=== PATIENT | male | born 1950 | race Caucasian/White ===

== ENCOUNTER 2019-02-01 13:12 | Emergency (ER) | payer MEDICARE, OTHER ==
--- NOTE | 2019-02-01 13:40 | ER Document Report ---
ED Medical Screen (RME) - General Chief Complaint: Shortness Of Breath Stated Complaint: ABNORMAL LABS Time Seen by Provider: 02/01/19 13:31 Mode of Arrival: Ambulatory Information source: Patient Notes: 68-year-old male presented to ED for complaint of shortness of breath ankles and feet swelling. 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 He states he went to a local primary doctor and they told him to come straight to the emergency room. 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 He states he is a former smoker does not drink or do any drugs. I have greeted and performed a rapid initial assessment of this patient. A comprehensive ED assessment and evaluation of the patient, analysis of test results and completion of medical decision making process will be conducted by an additional ED providers. Dictation of this chart was performed using voice recognition software; therefore, there may be some unintended grammatical errors. - Related Data Allergies/Adverse Reactions: No Known Allergies Allergy (Unverified 02/01/19 13:14) Past Medical History - Social History Chew tobacco use (# tins/day): No Frequency of alcohol use: None - Past Medical History Cardiac Medical History: Reports: Hx Congestive Heart Failure Renal/ Medical History: Denies: Hx Peritoneal Dialysis Physical Exam - Vital signs Vitals: Temp Pulse Resp BP Pulse Ox 97.5 F 50 L 16 139/78 H 96 02/01/19 13:16 02/01/19 13:16 02/01/19 13:16 02/01/19 13:16 02/01/19 13:16 Course - Vital Signs Vital signs: Temp Pulse Resp BP Pulse Ox 97.5 F 50 L 16 139/78 H 96 02/01/19 13:16 02/01/19 13:16 02/01/19 13:16 02/01/19 13:16 02/01/19 13:16
[2019-02-01 14:36] LABS: ABSOLUTE EOSINOPHILS # (AUTO) 0.2 10^3/uL (0.0-0.6); ABSOLUTE LYMPHOCYTES (AUTO) 1.2 10^3/uL (0.5-4.7); ABSOLUTE MONOCYTES (AUTO) 0.5 10^3/uL (0.1-1.4); ABSOLUTE NEUT (AUTO) 5.4 10^3/uL (1.7-8.2); BASOPHILS % (AUTO) 0.3 % (0-2); EOSINOPHILS % (AUTO) 2.2 % (0-6); HEMATOCRIT 43.7 % (37.9-51.0); HEMOGLOBIN 14.9 g/dL (13.5-17.0); LYMPHOCYTES % (AUTO) 16.5 % (13-45); MEAN CORPUSCULAR HEMOGLOBIN 31.5 pg (27.0-33.4); MEAN CORPUSCULAR HGB CONC 34.1 g/dL (32.0-36.0); MEAN CORPUSCULAR VOLUME 92 fl (80-97); MONOCYTES % (AUTO) 7.5 % (3-13); PLATELET COUNT 241 10^3/uL (150-450); RED BLOOD COUNT 4.72 10^6/uL (4.35-5.55); RED CELL DISTRIBUTION WIDTH 13.8 % (11.5-14.0); SEGMENTED NEUTROPHILS % (AUTO) 73.5 % (42-78); TOTAL CELLS COUNTED % (AUTO) 100 %; WHITE BLOOD COUNT 7.3 10^3/uL (4.0-10.5)
[2019-02-01 14:42] LABS: INTERNATIONAL RATION (INR) 1.05; PROTHROMBIN TIME 13.8 SEC (11.4-15.4)
[2019-02-01 14:58] LABS: ALBUMIN 4.1 g/dL (3.5-5.0); ALKALINE PHOSPHATASE 81 U/L (38-126); ANION GAP 11 (5-19); ASPARTATE AMINO TRANSFERASE 29 U/L (17-59); BILIRUBIN,DIRECT 0.3 mg/dL (0.0-0.4); BILIRUBIN,TOTAL 0.7 mg/dL (0.2-1.3); BLOOD UREA NITROGEN 20 mg/dL (7-20); CALCIUM 9.3 mg/dL (8.4-10.2); CARBON DIOXIDE 24 mmol/L (22-30); CHLORIDE 104 mmol/L (98-107); GLUCOSE 148 mg/dL (75-110); POTASSIUM 4.5 mmol/L (3.6-5.0); TOTAL PROTEIN 7.4 g/dL (6.3-8.2)
[2019-02-01 15:18] LABS: TROPONIN I 0.058 ng/mL
--- NOTE | 2019-02-01 15:36 | RADIOLOGY REPORT (SQ) ---
EXAM DESCRIPTION: CHEST 2 VIEWS COMPLETED DATE/TIME: 02/01/2019 3:28 pm REASON FOR STUDY: Short of breath pedal edema history of CHF COMPARISON: None. EXAM PARAMETERS: NUMBER OF VIEWS: two views TECHNIQUE: Digital Frontal and Lateral radiographic views of the chest acquired. RADIATION DOSE: NA LIMITATIONS: none FINDINGS: LUNGS AND PLEURA: No opacities, masses or pneumothorax. No pleural effusion. MEDIASTINUM AND HILAR STRUCTURES: No masses or contour abnormalities. HEART AND VASCULAR STRUCTURES: Enlarged cardiac silhouette. . No evidence for failure. Aortic athe rosclerosis. BONES: No acute findings. HARDWARE: None in the chest. OTHER: No other significant finding. IMPRESSION: Enlarged cardiac silhouette without other evidence of acute cardiopulmonary process. TECHNICAL DOCUMENTATION: JOB ID: [id number] [employer]- All Rights Reserved Reading location - IP/workstation name: [email or web address]
[2019-02-01] MEDS ORDERED: FUROSEMIDE INJ/PF 40 MG/4 ML SDV IV ONE (15:58)
--- NOTE | 2019-02-01 16:01 | ER Document Report ---
ED General - General Chief Complaint: Shortness Of Breath Stated Complaint: ABNORMAL LABS Time Seen by Provider: 02/01/19 13:31 Primary Care Provider: JASON DIAZ MD [ACTIVE STAFF] - 02/04/19 Mode of Arrival: Ambulatory - [facility] Notes: Patient is a 68-year-old male that presents to the emergency department for chief complaint of shortness of breath. Patient reports history of congestive heart failure. He is on Lasix daily. He has been taking his medication as prescribed which is once in the morning. He reports good diuresis at home. Patient states over the last few weeks he has had increasing shortness of breath. He does report orthopnea and peripheral edema. He denies any associated fever, chills, cough or chest pain. Patient moved to [place] 1 month ago and has not established with primary care yet. He has an appointment with Dr. Diaz this coming Monday to establish care. Patient states he was seen at an urgent care facility earlier today and was referred to the emergency room for further work-up. He denies any home oxygen use. Past Medical History: Congestive heart failure, hyperlipidemia, hypertension, subclavian steal syndrome Past Surgical History: Reviewed in chart Social History: Former smoker. Denies alcohol or drug use Family History: Reviewed and noncontributory for presenting illness Allergies: Reviewed, see documented allergy list. REVIEW OF SYSTEMS: CONSTITUTIONAL : No fever No chills No diaphoresis No recent illness EENT: No vision changes No congestion No sore throat CARDIOVASCULAR: No chest pain No palpitations RESPIRATORY: shortness of breath No cough No difficulty breathing GASTROINTESTINAL: No abdominal pain No nausea No vomiting No diarrhea GENITOURINARY: No dysuria No hematuria No difficulty urinating MUSCULOSKELETAL: No back pain leg pain No arm pain SKIN: No rashes No lesions LYMPHATIC: No swollen, enlarged glands. NEUROLOGICAL: No lightheadedness No headache No weakness No paresthesias PSYCHIATRIC: No anxiety No depression PHYSICAL EXAMINATION: Vital signs reviewed, nursing noted reviewed. GENERAL: Well-appearing, well-nourished and in no acute distress. HEAD: Atraumatic, normocephalic. EYES: Eyes appear normal, extraocular movements intact, sclera anicteric, conjunctiva are normal. ENT: nares patent, oropharynx clear without exudates. Moist mucous membranes. NECK: Normal range of motion, supple without lymphadenopathy LUNGS: Breath sounds diminished to auscultation bilaterally and equal. No wheezes rales or rhonchi. No tachypnea or accessory muscle use HEART: Regular rate and rhythm without murmurs ABDOMEN: Soft, nontender, normoactive bowel sounds. No rebound, guarding, or rigidity. No masses appreciated. EXTREMITIES: Nontender, good range of motion, +2 pitting edema bilateral lower extremities, symmetric. NEUROLOGICAL: No focal neurological deficits. Moves all extremities spontaneously Motor and sensory grossly intact on exam. PSYCH: Normal mood, normal affect. SKIN: Warm, Dry, normal turgor, no rashes or lesions noted on exposed skin - Related Data Allergies/Adverse Reactions: No Known Allergies Allergy (Unverified 02/01/19 13:14) Past Medical History - General Information source: Patient - Social History Smoking Status: Former Smoker Chew tobacco use (# tins/day): No Frequency of alcohol use: None Family History: Reviewed & Not Pertinent Patient has suicidal ideation: No Patient has homicidal ideation: No - Past Medical History Cardiac Medical History: Reports: Hx Congestive Heart Failure Renal/ Medical History: Denies: Hx Peritoneal Dialysis Physical Exam - Vital signs Vitals: Temp Pulse Resp BP Pulse Ox 97.5 F 50 L 16 139/78 H 96 02/01/19 13:16 02/01/19 13:16 02/01/19 13:16 02/01/19 13:16 02/01/19 13:16 Course - Re-evaluation Re-evalutation: 02/01/19 16:23 Vitals reviewed. Nursing notes reviewed. Patient's lab work shows a mild elevation in his creatinine likely secondary to his chronic Lasix. Patient has an elevated BNP at 8000 however there is no comparison to establish patient's baseline. His chest x-ray shows cardiomegaly without pulmonary vascular ben estion. Patient is currently not tachypneic or in any kind of respiratory distress. He is oxygenating at 96% on room air and speaking in full sentences. The remainder of his work-up is unremarkable. His troponin is 0.058 and he has not had any chest pain to suggest acute ACS. I do feel patient's symptoms are related to congestive heart failure exacerbation. He was given a dose of Lasix IV in the emergency room for continued diuresis. He has not having any respiratory distress that would necessitate him being admitted to the admitted to the hospital. Patient advised to contact Dr. Diaz Monday morning for close outpatient follow-up. He was told to return for new or worsening symptoms. Patient was counseled on avoiding high sodium foods. He will continue taking his Lasix as directed. He will elevate his feet to help with his peripheral edema. He and his feel comfortable with him being discharged home and with return precautions. Patient is stable for discharge. Laboratory 02/01/19 02/01/19 02/01/19 14:15 14:15 14:15 WBC 7.3 RBC 4.72 Hgb 14.9 Hct 43.7 MCV 92 MCH 31.5 MCHC 34.1 RDW 13.8 Plt Count 241 Seg Neutrophils % 73.5 Lymphocytes % 16.5 Monocytes % 7.5 Eosinophils % 2.2 Basophils % 0.3 Absolute Neutrophils 5.4 Absolute Lymphocytes 1.2 Absolute Monocytes 0.5 Absolute Eosinophils 0.2 Absolute Basophils 0.0 PT 13.8 INR 1.05 APTT 31.0 Sodium 138.6 Potassium 4.5 Chloride 104 Carbon Dioxide 24 Anion Gap 11 BUN 20 Creatinine 1.38 H Est GFR ( Amer) > 60 Est GFR (Non-Af Amer) 51 L Glucose 148 H Calcium 9.3 Total Bilirubin 0.7 Direct Bilirubin 0.3 Neonat Total Bilirubin Not Reportable Neonat Direct Bilirubin Not Reportable Neonat Indirect Bili Not Reportable AST 29 ALT 23 Alkaline Phosphatase 81 Troponin I NT-Pro-B Natriuret Pep Total Protein 7.4 Albumin 4.1 Lipase 84.4 02/01/19 14:15 WBC RBC Hgb Hct MCV MCH MCHC RDW Plt Count Seg Neutrophils % Lymphocytes % Monocytes % Eosinophils % Basophils % Absolute Neutrophils Absolute Lymphocytes Absolute Monocytes Absolute Eosinophils Absolute Basophils PT INR APTT Sodium Potassium Chloride Carbon Dioxide Anion Gap BUN Creatinine Est GFR ( Amer) Est GFR (Non-Af Amer) Glucose Calcium Total Bilirubin Direct Bilirubin Neonat Total Bilirubin Neonat Direct Bilirubin Neonat Indirect Bili AST ALT Alkaline Phosphatase Troponin I 0.058 NT-Pro-B Natriuret Pep 8110 H Total Protein Albumin Lipase Laboratory 02/01/19 02/01/19 02/01/19 14:15 14:15 14:15 WBC 7.3 RBC 4.72 Hgb 14.9 Hct 43.7 MCV 92 MCH 31.5 MCHC 34.1 RDW 13.8 Plt Count 241 Seg Neutrophils % 73.5 Lymphocytes % 16.5 Monocytes % 7.5 Eosinophils % 2.2 Basophils % 0.3 Absolute Neutrophils 5.4 Absolute Lymphocytes 1.2 Absolute Monocytes 0.5 Absolute Eosinophils 0.2 Absolute Basophils 0.0 PT 13.8 INR 1.05 APTT 31.0 Sodium 138.6 Potassium 4.5 Chloride 104 Carbon Dioxide 24 Anion Gap 11 BUN 20 Creatinine 1.38 H Est GFR ( Amer) > 60 Est GFR (Non-Af Amer) 51 L Glucose 148 H Calcium 9.3 Total Bilirubin 0.7 Direct Bilirubin 0.3 Neonat Total Bilirubin Not Reportable Neonat Direct Bilirubin Not Reportable Neonat Indirect Bili Not Reportable AST 29 ALT 23 Alkaline Phosphatase 81 Troponin I NT-Pro-B Natriuret Pep Total Protein 7.4 Albumin 4.1 Lipase 84.4 02/01/19 14:15 WBC RBC Hgb Hct MCV MCH MCHC RDW Plt Count Seg Neutrophils % Lymphocytes % Monocytes % Eosinophils % Basophils % Absolute Neutrophils Absolute Lymphocytes Absolute Monocytes Absolute Eosinophils Absolute Basophils PT INR APTT Sodium Potassium Chloride Carbon Dioxide Anion Gap BUN Creatinine Est GFR ( Amer) Est GFR (Non-Af Amer) Glucose Calcium Total Bilirubin Direct Bilirubin Neonat Total Bilirubin Neonat Direct Bilirubin Neonat Indirect Bili AST ALT Alkaline Phosphatase Troponin I 0.058 NT-Pro-B Natriuret Pep 8110 H Total Protein Albumin Lipase Chest X-Ray 02/01/19 13:37 IMPRESSION: Enlarged cardiac silhouette without other evidence of acute cardiopulmonary process. - Vital Signs Vital signs: Temp Pulse Resp BP Pulse Ox 97.5 F 50 L 16 139/78 H 96 02/01/19 13:16 02/01/19 13:16 02/01/19 13:16 02/01/19 13:16 02/01/19 13:16 - Laboratory Result Diagrams: 02/01/19 14:15 02/01/19 14:15 Laboratory results interpreted by me: 02/01/19 02/01/19 02/01/19 14:15 14:15 16:11 Creatinine 1.38 H Est GFR (Non-Af Amer) 51 L Glucose 148 H NT-Pro-B Natriuret Pep 8110 H Urine Protein >=500 H - EKG Interpretation by Me Additional EKG results interpreted by me: 02/01/19 16:49 Interpreted by myself 1643: Normal sinus rhythm, rate 85, normal axis, multiple PVCs, no STEMI, QT prolonged with QTC 509 Discharge - Discharge Clinical Impression: CHF exacerbation Qualifiers: Heart failure type: unspecified Qualified Code(s): I50.9 - Heart failure, unspecified Condition: Stable Disposition: HOME, SELF-CARE Instructions: Congestive Heart Failure ([facility]), Lasix Additional Instructions: Please return to the emergency department if you have any worsening, or concern of your symptoms. Please return to the emergency department if you develop chest pain, difficulty breathing, severe abdominal pain, or ongoing vomiting. Please follow-up with your primary care physician in 2-3 days and any other recommended physicians. If prescribed, take all medications as directed. If you have any questions or concerns do not hesitate to return the emergency department for evaluation. Follow with Dr. Diaz on Monday morning, if you are unable to be seen by cardiology or are having worsening symptoms please return to the emergency room Referrals: JASON DIAZ MD [ACTIVE STAFF] - 02/04/19
[2019-02-01 16:24] LABS: APPEARANCE,URINE CLEAR; BILIRUBIN,URINE NEGATIVE (NEGATIVE); COLOR,URINE YELLOW; GLUCOSE, URINE NEGATIVE (NEGATIVE); KETONES,URINE NEGATIVE (NEGATIVE); LEUKOCYTE ESTERASE,URINE NEGATIVE (NEGATIVE); NITRITE,URINE NEGATIVE (NEGATIVE); PROTEIN,URINE >=500 mg/dL (NEGATIVE); URINE SPECIFIC GRAVITY 1.015; UROBILINOGEN,URINE NEGATIVE mg/dL (<2.0)
[2019-02-01 16:58] VITALS: BP 130/74
--- NOTE | 2019-02-01 19:00 | EKG REPORT ---
SEVERITY:- ABNORMAL ECG - SINUS RHYTHM MULTIPLE VENTRICULAR PREMATURE COMPLEXES PROBABLE LEFT ATRIAL ABNORMALITY NONSPECIFIC T ABNORMALITIES, LATERAL LEADS PROLONGED QT INTERVAL : Confirmed by: Grady Dejesus MD 01-Feb-2019 18:59:59
== END 2019-02-01 16:50 | disposition home or self-care (01) ==
LOC: ER 13:12
DX: I11.0 Hypertensive heart disease with heart failure (principal); I50.9 Heart failure, unspecified; Z79.899 Other long term (current) drug therapy; R06.02 Shortness of breath; M79.606 Pain in leg, unspecified; I49.3 Ventricular premature depolarization; Z87.891 Personal history of nicotine dependence
CPT/HCPCS: 93005; 36415; 83690; 85025; 85610; 85730; 80053; 81001; 84484; 83880; 71046; 93010; J1940; 96374; 99285

== ENCOUNTER 2019-02-10 03:00 | Inpatient (IN) | payer MEDICARE, OTHER ==
[2019-02-10 03:34] LABS: VENOUS BLOOD BASE EXCESS -3.8 mmol/L; VENOUS BLOOD HCO3 20.9 mmol/L (20-32); VENOUS BLOOD PH 7.37 (7.30-7.42)
--- NOTE | 2019-02-10 03:37 | ER Document Report ---
ED Respiratory Problem - General Chief Complaint: Shortness Of Breath Stated Complaint: SHORTNESS OF BREATH Time Seen by Provider: 02/10/19 03:22 Mode of Arrival: Medic Information source: Patient, Relative, Emergency Med Personnel, [facility] Records Notes: 68-year-old male patient reports onset about 1:15 AM this morning of severe shortness of breath developing while he was laying in bed. EMS was called and they found him to have a room air saturation 87%. He was placed on CPAP and nitroglycerin paste. At this time he is on BiPAP and he states the breathing is much improved. He was seen here on 02/01/2019 with similar symptoms but he reports that tonight was much worse than that visit. At that time he was diagnosed with congestive heart failure, received IV Lasix, and was told to follow-up with Dr. Stewart. He states he has an appointment with Dr. Stewart scheduled for 02/18/2019. He moved here just over a month ago from [facility]. He has a past medical history of CHF and hypertension. - Related Data Allergies/Adverse Reactions: No Known Allergies Allergy (Unverified 02/01/19 13:14) Past Medical History - General Information source: Patient, Relative, Emergency Med Personnel, [facility] Records - Social History Smoking Status: Former Smoker Cigarette use (# per day): No Chew tobacco use (# tins/day): No Smoking Education Provided: No Frequency of alcohol use: None Drug Abuse: None Occupation: Retired Lives with: Spouse/Significant other Family History: Reviewed & Not Pertinent - Past Medical History Cardiac Medical History: Reports: Hx Congestive Heart Failure, Hx Hypertension, Other - ,Subclavian steal syndrome on the right Denies: Hx Heart Attack Renal/ Medical History: Reports: Hx Benign Prostatic Hyperplasia Surgical Hx: Negative Review of Systems - Review of Systems Constitutional: No symptoms reported EENT: No symptoms reported Cardiovascular: No symptoms reported Respiratory: See HPI, Short of breath Gastrointestinal: No symptoms reported Genitourinary: No symptoms reported Musculoskeletal: No symptoms reported Skin: No symptoms reported Hematologic/Lymphatic: No symptoms reported Neurological/Psychological: No symptoms reported Physical Exam - Vital signs Vitals: Pulse Ox 96 02/10/19 03:04 - General General appearance: Appears well, Alert In distress: None - HEENT Head: Normocephalic, Atraumatic Eyes: Normal Pupils: PERRL Neck: Normal - Respiratory Respiratory status: Tachypnea Chest status: Nontender Breath sounds: Rales - Cardiovascular Rhythm: Regular Heart sounds: Normal auscultation Murmur: No - Abdominal Inspection: Morbidly Obese Bowel sounds: Normal Tenderness: Nontender - Back Back: Normal - Extremities General upper extremity: Normal inspection General lower extremity: Normal inspection. No: Edema - Neurological Neuro grossly intact: Yes - Psychological Associated symptoms: Normal affect, Normal mood - Skin Skin Temperature: Warm Skin Moisture: Dry Skin Color: Normal Course - Vital Signs Vital signs: Temp Pulse Resp BP Pulse Ox 99.1 F 13 103/57 L 95 02/10/19 03:38 02/10/19 04:51 02/10/19 04:51 02/10/19 04:51 - Laboratory Result Diagrams: 02/10/19 03:20 02/10/19 03:20 Laboratory results interpreted by me: 02/10/19 02/10/19 02/10/19 03:20 03:20 03:20 RDW 14.3 H Carbon Dioxide 21 L BUN 29 H Creatinine 1.31 H Est GFR (Non-Af Amer) 54 L Glucose 149 H Creatine Kinase 50 L NT-Pro-B Natriuret Pep 7780 H Urine Protein 02/10/19 04:15 RDW Carbon Dioxide BUN Creatinine Est GFR (Non-Af Amer) Glucose Creatine Kinase NT-Pro-B Natriuret Pep Urine Protein >=500 H - Diagnostic Test Radiology reviewed: Image reviewed, Reports reviewed - Chest x-ray shows increasing left basilar opacities, pneumonia versus atelectasis. - EKG Interpretation by Md EKG shows normal: Sinus rhythm, [place], Intervals, QRS Complexes. abnormal: ST-T Waves - Unspecific lateral T abnormalities Rate: Tachycardia - 106 Rhythm: PVC's - Occasional ventricular bigeminy P Waves: LAE When compared to previous EKG there are: No significant change - Consults Dr. Long Time consulted: 05:10 Consulted provider: will come to ER Discharge - Discharge Clinical Impression: Hypoxia, Elevated brain natriuretic peptide (BNP) level, Opacity of lung on imaging study Dyspnea Qualifiers: Dyspnea type: shortness of breath Qualified Code(s): R06.02 - Shortness of breath; R06.00 - Dyspnea, unspecified; R06.01 - Orthopnea Condition: Stable Disposition: ADMITTED INPATIENT Admitting Provider: Ethan (Hospitalist) Unit Admitted: Telemetry
[2019-02-10 03:52] LABS: ABSOLUTE EOSINOPHILS # (AUTO) 0.2 10^3/uL (0.0-0.6); ABSOLUTE LYMPHOCYTES (AUTO) 1.1 10^3/uL (0.5-4.7); ABSOLUTE MONOCYTES (AUTO) 0.5 10^3/uL (0.1-1.4); ABSOLUTE NEUT (AUTO) 5.2 10^3/uL (1.7-8.2); BASOPHILS % (AUTO) 0.6 % (0-2); EOSINOPHILS % (AUTO) 2.4 % (0-6); HEMATOCRIT 41.2 % (37.9-51.0); HEMOGLOBIN 13.8 g/dL (13.5-17.0); LYMPHOCYTES % (AUTO) 15.8 % (13-45); MEAN CORPUSCULAR HEMOGLOBIN 31.3 pg (27.0-33.4); MEAN CORPUSCULAR HGB CONC 33.4 g/dL (32.0-36.0); MEAN CORPUSCULAR VOLUME 94 fl (80-97); MONOCYTES % (AUTO) 7.1 % (3-13); PLATELET COUNT 206 10^3/uL (150-450); RED CELL DISTRIBUTION WIDTH 14.3 % (11.5-14.0); SEGMENTED NEUTROPHILS % (AUTO) 74.1 % (42-78); TOTAL CELLS COUNTED % (AUTO) 100 %
[2019-02-10 03:59] LABS: ALBUMIN 3.8 g/dL (3.5-5.0); ALKALINE PHOSPHATASE 84 U/L (38-126); ANION GAP 9 (5-19); ASPARTATE AMINO TRANSFERASE 24 U/L (17-59); BILIRUBIN,DIRECT 0.3 mg/dL (0.0-0.4); BILIRUBIN,TOTAL 0.6 mg/dL (0.2-1.3); BLOOD UREA NITROGEN 29 mg/dL (7-20); CALCIUM 8.8 mg/dL (8.4-10.2); CARBON DIOXIDE 21 mmol/L (22-30); CHLORIDE 107 mmol/L (98-107); CREATINE KINASE 50 U/L (55-170); GLUCOSE 149 mg/dL (75-110); POTASSIUM 4.3 mmol/L (3.6-5.0); TOTAL PROTEIN 6.7 g/dL (6.3-8.2)
--- NOTE | 2019-02-10 04:01 | RADIOLOGY REPORT (SQ) ---
EXAM DESCRIPTION: XR CHEST 1 VIEW COMPLETED DATE/TME: 02/10/2019 03:28 CLINICAL HISTORY: 68 years, Male, SOB COMPARISON: 02/01/2019 NUMBER OF VIEWS: One TECHNIQUE: AP view the chest LIMITATIONS: None. FINDINGS: There are increasing left basilar opacities. The heart is mildly enlarged. There is no pneumothorax or large pleural effusion. No acute fracture is identified. IMPRESSION: Increasing left basilar opacities, which may represent pneumonia or atelectasis. copyright 2010 [employer]- All Rights Reserved
[2019-02-10 04:08] LABS: CREATINE KINASE MB 1.23 ng/mL (<4.55)
[2019-02-10 04:10] LABS: TROPONIN I 0.064 ng/mL
[2019-02-10 04:36] LABS: APPEARANCE,URINE CLEAR; BILIRUBIN,URINE NEGATIVE (NEGATIVE); COLOR,URINE YELLOW; GLUCOSE, URINE NEGATIVE (NEGATIVE); KETONES,URINE NEGATIVE (NEGATIVE); LEUKOCYTE ESTERASE,URINE NEGATIVE (NEGATIVE); NITRITE,URINE NEGATIVE (NEGATIVE); PROTEIN,URINE >=500 mg/dL (NEGATIVE); URINE SPECIFIC GRAVITY 1.009; UROBILINOGEN,URINE NEGATIVE mg/dL (<2.0)
[2019-02-10] MEDS ORDERED: ACETAMINOPHEN 325 MG TABLET PO PRN (05:36)
[2019-02-10] MEDS ORDERED: PROMETHAZINE HCL INJ 25 MG/1 ML VIAL IV PRN (05:36)
[2019-02-10] MEDS ORDERED: MAG HYDROX/AL HYDROX/SIMETH SUSP 30 ML UDCUP PO PRN (05:36)
[2019-02-10] MEDS ORDERED: ONDANSETRON 4 MG TAB.RAPDIS PO PRN (05:36)
[2019-02-10] MEDS ORDERED: ONDANSETRON HCL INJ/PF 4 MG/2 ML SDV IV PRN (05:36)
[2019-02-10] MEDS ORDERED: PROMETHAZINE HCL 25 MG TABLET PO PRN (05:36)
--- NOTE | 2019-02-10 05:52 | PDOC H&P ---
History of Present Illness Admission Date/PCP: 02/10/19 05:29 Patient complains of: Shortness of breath History of Present Illness: INES TURNER JR is a 68 year old obese male with history of hypertension and CHF who presented to the emergency room with acute onset of worsening dyspnea with associated orthopnea paroxysmal nocturnal dyspnea with dry cough and wheezing that fear or chills over the last couple of days. Denies any chest pain or palpitations. Denies any nausea or vomiting or abdominal pain. No bleeding diathesis. No dysuria, oliguria or hematuria or flank pain. Upon presentation to the emergency room his EKG showed sinus tachycardia with a rate of 106 with PVCs. Will signs were remarkable for a temperature of 99.1 and pulse oximetry was 98% on 2 L O2 by nasal cannula. Labs are remarkable for negative initial set of cardiac enzymes, lactic acid 1.2 and proBNP of 7780. Urinalysis showed more than 500 protein 2 WBCs and 1 RBCs 3 hyaline casts. Portable chest x-ray showed slightly increased left basilar opacity, pneumonia versus atelectasis. The patient was order 40 mg of IV Lasix. He will be admitted to telemetry bed for further evaluation and management. Past Medical History Cardiac Medical History: Reports: Congestive Heart Failure, Hypertension, Other - ,Subclavian steal syndrome on the right Denies: Myocardial Infarction Past Surgical History Past Surgical History: Reports: None Social History Lives with: Spouse/Significant other Smoking Status: Former Smoker Hx Recreational Drug Use: Yes Hx Prescription Drug Abuse: Yes Family History Family History: DM, Hypertension Parental Family History Reviewed: Yes Children Family History Reviewed: Yes Sibling(s) Family History Reviewed.: Yes Medication/Allergy Allergies/Adverse Reactions: No Known Allergies Allergy (Unverified 02/01/19 13:14) Review of Systems Review of Systems: As per history of present illness. All pertinent systems were reviewed above. Constitutional, HEENT, cardiovascular, respiratory, GI, , musculoskeletal, neuro, psychiatric, endocrine, integumentary and hematologic systems were reviewed and are otherwise negative/unremarkable except for positive findings mentioned above in the HPI. Physical Exam Vital Signs: Temp Pulse Resp BP Pulse Ox 99.1 F 25 H 114/72 97 02/10/19 03:38 02/10/19 05:32 02/10/19 05:32 02/10/19 05:32 Intake & Output 02/08/19 02/09/19 02/10/19 06:59 06:59 06:59 Weight 107 kg Exam: Generally: Obese elderly male in mild to moderate respiratory distress with conversational dyspnea on BiPAP Vital signs-as listed Head - atraumatic, normocephalic. Pupils - equal, round and reactive to light and accommodation. Extraocular movements are intact. No scleral icterus. Oropharynx - moist mucous membranes and tongue. No pharyngeal erythema or exudate. Neck - supple. No JVD. Carotid pulses 2+ bilaterally. No carotid bruits. No palpable thyromegaly or lymphadenopathy. Cardiovascular - regular rate and rhythm. Normal S1 and S2. No murmurs, gallops or rubs. Lungs -diminished bibasilar breath sounds with bibasilar rales. Abdomen - soft and nontender. Positive bowel sounds. No palpable organomegaly or masses. Extremities -1+ bilateral extremity pitting edema, with no clubbing or cyanosis. Neuro - grossly non-focal. Skin - no rashes. and rectal exam - deferred. Results Laboratory Results: 02/10/19 03:20 02/10/19 03:20 02/10/19 02/10/19 02/10/19 03:20 03:20 03:20 WBC 7.0 RBC 4.40 Hgb 13.8 Hct 41.2 MCV 94 MCH 31.3 MCHC 33.4 RDW 14.3 H Plt Count 206 Seg Neutrophils % 74.1 Lymphocytes % 15.8 Monocytes % 7.1 Eosinophils % 2.4 Basophils % 0.6 Absolute Neutrophils 5.2 Absolute Lymphocytes 1.1 Absolute Monocytes 0.5 Absolute Eosinophils 0.2 Absolute Basophils 0.0 VBG pH VBG pCO2 VBG HCO3 VBG Base Excess Sodium 137.1 Potassium 4.3 Chloride 107 Carbon Dioxide 21 L Anion Gap 9 BUN 29 H Creatinine 1.31 H Est GFR ( Amer) > 60 Est GFR (Non-Af Amer) 54 L Glucose 149 H Lactic Acid 1.2 Calcium 8.8 Total Bilirubin 0.6 AST 24 Alkaline Phosphatase 84 Total Protein 6.7 Albumin 3.8 Urine Color Urine Appearance Urine pH Ur Specific [place] Urine Protein Urine Glucose (UA) Urine Ketones Urine Blood Urine Nitrite Ur Leukocyte Esterase Urine WBC (Auto) Urine RBC (Auto) 02/10/19 02/10/19 03:20 04:15 WBC RBC Hgb Hct MCV MCH MCHC RDW Plt Count Seg Neutrophils % Lymphocytes % Monocytes % Eosinophils % Basophils % Absolute Neutrophils Absolute Lymphocytes Absolute Monocytes Absolute Eosinophils Absolute Basophils VBG pH 7.37 VBG pCO2 37.0 VBG HCO3 20.9 VBG Base Excess -3.8 Sodium Potassium Chloride Carbon Dioxide Anion Gap BUN Creatinine Est GFR ( Amer) Est GFR (Non-Af Amer) Glucose Lactic Acid Calcium Total Bilirubin AST Alkaline Phosphatase Total Protein Albumin Urine Color YELLOW Urine Appearance CLEAR Urine pH 5.0 Ur Specific [place] 1.009 Urine Protein >=500 H Urine Glucose (UA) NEGATIVE Urine Ketones NEGATIVE Urine Blood NEGATIVE Urine Nitrite NEGATIVE Ur Leukocyte Esterase NEGATIVE Urine WBC (Auto) 2 Urine RBC (Auto) 1 02/10/19 02/10/19 02/10/19 03:20 03:20 03:20 Creatine Kinase 50 L CK-MB (CK-2) 1.23 Troponin I 0.064 NT-Pro-B Natriuret Pep 7780 H Impressions: Chest X-Ray 02/10/19 03:28 IMPRESSION: Increasing left basilar opacities, which may represent pneumonia or atelectasis. copyright 2011 [employer]- All Rights Reserved Assessment and Plan - Diagnosis (1) Acute on chronic diastolic CHF (congestive heart failure) Is this a current diagnosis for this admission?: Yes Plan: The patient will be admitted to a telemetry bed and will be diuresed with IV Lasix. Will follow serial cardiac enzymes. Will obtain a 2D echo(if not done last 6 months) and a cardiology consultation in a.m. (2) Acute respiratory failure Is this a current diagnosis for this admission?: Yes Plan: We will continue BiPAP and taper to nasal cannula as tolerated. (3) Acute kidney injury Is this a current diagnosis for this admission?: Yes Plan: This is likely prerenal secondary to acute CHF from renal hypoperfusion. Will diurese and follow BMP. Will hold off lisinopril (4) Hypertension Is this a current diagnosis for this admission?: Yes Plan: We will continue Toprol-XL as well as terazosin and hold off lisinopril given acute kidney injury. (5) DVT prophylaxis Is this a current diagnosis for this admission?: Yes Plan: Subcutaneous Lovenox - Time Time Spent with patient: 35 or more minutes Medications reviewed and adjusted accordingly: Yes Anticipated discharge: Home Within: within 72 hours Disposition: Telemetry bed - Inpatient Certification Based on my medical assessment, after consideration of the patient's comorbidities, presenting symptoms, or acuity I expect that the services needed warrant INPATIENT care.: Yes I certify that my determination is in accordance with my understanding of Medicare's requirements for reasonable and necessary INPATIENT services [42 CFR 412.3e].: Yes Medical Necessity: Need For Continuous Telemetry Monitoring, Need for IV Antibiotics Post Hospital Care: D/C or Transfer Summary - Plan Summary Plan Summary: The plan of care was discussed in details with the patient. I answered all que stions. The patient agreed to proceed with the above-mentioned plan. The patient is presumably full code. This note was created by [employer] dictating software and may contain typo errors that may have not been proofread.
[2019-02-10 06:38] LABS: CREATINE KINASE MB 1.08 ng/mL (<4.55); TROPONIN I 0.061 ng/mL
[2019-02-10] MEDS ORDERED: VANCOMYCIN HCL INJ 1000 MG VIAL IV ONE (06:42)
[2019-02-10] MEDS ORDERED: PHARMACY COMMUNICATION ORDER MC NR (06:45)
[2019-02-10] MEDS ORDERED: PIPERACILLIN/TAZOBACTAM 3.375 GM VIAL IV ONE (06:45)
[2019-02-10] MEDS ORDERED: VANCOMYCIN HCL INJ 1000 MG VIAL IV PRN (06:58)
[2019-02-10] MEDS ORDERED: VANCOMYCIN HCL 2,000 MG in DEXTROSE 5%-WATER 500 ML IV ONE (07:00)
[2019-02-10] MEDS: DOCUSATE SODIUM 100 MG CAPSULE PO SCH (09:50)
[2019-02-10] MEDS: ASPIRIN 325 MG TABLET, ENT COATED PO SCH (09:50)
[2019-02-10] MEDS: FUROSEMIDE INJ/PF 40 MG/4 ML SDV IV SCH ×2 (09:51→21:35)
[2019-02-10] MEDS: ENOXAPARIN SODIUM INJ 40 MG/0.4 ML DISP.SYRIN SUBCUT SCH (09:51)
[2019-02-10] MEDS ORDERED: METOPROLOL SUCCINATE 25 MG TAB.SR.24H PO SCH (10:00)
--- NOTE | 2019-02-10 11:29 | EKG REPORT ---
SEVERITY:- ABNORMAL ECG - SINUS TACHYCARDIA VENTRICULAR BIGEMINY LEFT ATRIAL ABNORMALITY NONSPECIFIC T ABNORMALITIES, LATERAL LEADS : Confirmed by: Parul Stewart 10-Feb-2019 11:29:28
[2019-02-10 13:10] LABS: CREATINE KINASE MB 1.23 ng/mL (<4.55); TROPONIN I 0.069 ng/mL
[2019-02-10] MEDS ORDERED: METOPROLOL SUCCINATE 25 MG TAB.SR.24H PO ONE (16:00)
[2019-02-10] MEDS ORDERED: DIPH/PERTUSS(ACELL)/TETANUS VAC/PF 0.5 ML SYR (>=10YO) IM ONE (16:30)
[2019-02-10 18:10] LABS: CREATINE KINASE MB 1.2 ng/mL (<4.55); TROPONIN I 0.068 ng/mL
--- NOTE | 2019-02-10 18:32 | PDOC PROGRESS REPORT ---
Subjective Progress Note for:: 02/10/19 Subjective:: The patient is a 68-year-old male with a past medical history of hypertension, CHF, subclavian steal syndrome to the left who was admitted 02/10/2019 for acute on chronic diastolic CHF exacerbation. Patient was seen on afternoon rounds. He was found sitting up to the edge of the bed on supplemental oxygen via nasal cannula. He reports that he is feeling much better this afternoon. He denies dyspnea while at rest, denies orthopnea. Has not yet been ambulatory. Patient is not home O2 dependent. He does have a CPAP machine at home, though does not use it regularly. He also reports a puncture wound to his mid right foot from stepping on a nail yesterday afternoon prior to presenting to the emergency department. He reports that is been greater than 10 years since his last tetanus immunization. He further denies fever, chills, chest pain, palpitations, cough, abdominal pain, nausea vomiting and diarrhea. He is hopeful to be discharged early tomorrow morning as he has an important work appointment in the afternoon. He has no other questions or concerns at this time. No concerns per nursing. Reason For Visit: HEART FAILURE Physical Exam Vital Signs: Temp Pulse Resp BP Pulse Ox 97.6 F 84 19 106/75 94 02/10/19 16:00 02/10/19 16:00 02/10/19 16:00 02/10/19 16:00 02/10/19 16:00 Intake & Output 02/09/19 02/10/19 02/11/19 06:59 06:59 06:59 Intake Total 856 Balance 856 Weight 112.5 kg General appearance: PRESENT: no acute distress, cooperative, disheveled, obese, well-developed, well-nourished Head exam: PRESENT: atraumatic, normocephalic Eye exam: PRESENT: conjunctiva pink, EOMI, PERRLA. ABSENT: scleral icterus Ear exam: PRESENT: normal external ear exam Mouth exam: PRESENT: moist, tongue midline Teeth exam: PRESENT: poor dentation Neck exam: ABSENT: carotid bruit, JVD, lymphadenopathy, thyromegaly Respiratory exam: PRESENT: crackles - Slight bibasilar crackles, symmetrical, unlabored, other - Supplemental oxygen via nasal cannula. ABSENT: rales, rhonchi, wheezes Cardiovascular exam: PRESENT: RRR, +S1, +S2. ABSENT: diastolic murmur, rubs, systolic murmur Pulses: PRESENT: normal dorsalis pedis pul Vascular exam: PRESENT: normal capillary refill GI/Abdominal exam: PRESENT: normal bowel sounds, soft. ABSENT: distended, guarding, mass, organolmegaly, rebound, tenderness Rectal exam: PRESENT: deferred Extremities exam: PRESENT: full ROM. ABSENT: calf tenderness, clubbing, pedal edema, +1 edema Neurological exam: PRESENT: alert, awake, oriented to person, oriented to place, oriented to time, oriented to situation, CN II-XII grossly intact. ABSENT: motor sensory deficit Psychiatric exam: PRESENT: appropriate affect, normal mood. ABSENT: homicidal ideation, suicidal ideation Skin exam: PRESENT: dry, intact, warm. ABSENT: cyanosis, rash Results Laboratory Results: 02/10/19 03:20 02/10/19 03:20 02/10/19 02/10/19 02/10/19 03:20 03:20 03:20 WBC 7.0 RBC 4.40 Hgb 13.8 Hct 41.2 MCV 94 MCH 31.3 MCHC 33.4 RDW 14.3 H Plt Count 206 Seg Neutrophils % 74.1 Lymphocytes % 15.8 Monocytes % 7.1 Eosinophils % 2.4 Basophils % 0.6 Absolute Neutrophils 5.2 Absolute Lymphocytes 1.1 Absolute Monocytes 0.5 Absolute Eosinophils 0.2 Absolute Basophils 0.0 VBG pH VBG pCO2 VBG HCO3 VBG Base Excess Sodium 137.1 Potassium 4.3 Chloride 107 Carbon Dioxide 21 L Anion Gap 9 BUN 29 H Creatinine 1.31 H Est GFR ( Amer) > 60 Est GFR (Non-Af Amer) 54 L Glucose 149 H Lactic Acid 1.2 Calcium 8.8 Total Bilirubin 0.6 AST 24 Alkaline Phosphatase 84 Total Protein 6.7 Albumin 3.8 TSH Urine Color Urine Appearance Urine pH Ur Specific [place] Urine Protein Urine Glucose (UA) Urine Ketones Urine Blood Urine Nitrite Ur Leukocyte Esterase Urine WBC (Auto) Urine RBC (Auto) 02/10/19 02/10/19 02/10/19 03:20 04:15 05:56 WBC RBC Hgb Hct MCV MCH MCHC RDW Plt Count Seg Neutrophils % Lymphocytes % Monocytes % Eosinophils % Basophils % Absolute Neutrophils Absolute Lymphocytes Absolute Monocytes Absolute Eosinophils Absolute Basophils VBG pH 7.37 VBG pCO2 37.0 VBG HCO3 20.9 VBG Base Excess -3.8 Sodium Potassium Chloride Carbon Dioxide Anion Gap BUN Creatinine Est GFR ( Amer) Est GFR (Non-Af Amer) Glucose Lactic Acid Calcium Total Bilirubin AST Alkaline Phosphatase Total Protein Albumin TSH 2.13 Urine Color YELLOW Urine Appearance CLEAR Urine pH 5.0 Ur Specific [place] 1.009 Urine Protein >=500 H Urine Glucose (UA) NEGATIVE Urine Ketones NEGATIVE Urine Blood NEGATIVE Urine Nitrite NEGATIVE Ur Leukocyte Esterase NEGATIVE Urine WBC (Auto) 2 Urine RBC (Auto) 1 02/10/19 02/10/19 02/10/19 03:20 03:20 03:20 Creatine Kinase 50 L CK-MB (CK-2) 1.23 Troponin I 0.064 NT-Pro-B Natriuret Pep 7780 H 02/10/19 02/10/19 02/10/19 05:56 05:56 11:52 Creatine Kinase 47 L Cancelled CK-MB (CK-2) 1.08 Troponin I 0.061 NT-Pro-B Natriuret Pep 02/10/19 02/10/19 02/10/19 11:52 12:30 12:30 Creatine Kinase 51 L CK-MB (CK-2) Cancelled 1.23 Troponin I Cancelled 0.069 NT-Pro-B Natriuret Pep 02/10/19 02/10/19 17:20 17:20 Creatine Kinase 51 L CK-MB (CK-2) 1.20 Troponin I 0.068 NT-Pro-B Natriuret Pep Impressions: Chest X-Ray 02/10/19 03:28 IMPRESSION: Increasing left basilar opacities, which may represent pneumonia or atelectasis. copyright 2010 [employer]- All Rights Reserved Assessment and Plan - Diagnosis (1) Acute on chronic diastolic CHF (congestive heart failure) Is this a current diagnosis for this admission?: Yes Plan: Patient is admitted to the medical floor on continuous cardiac telemetry. Continue home dose of metoprolol. IV furosemide. Daily aspirin therapy. Cardiac diet. Daily weights and strict I&O's. (2) Acute kidney injury Is this a current diagnosis for this admission?: Yes Plan: This is likely prerenal secondary to acute CHF from renal hypoperfusion. Will diurese and optimize cardiac output. Avoid nephrotoxic medications as able. Daily chemistries. (3) Acute respiratory failure Is this a current diagnosis for this admission?: Yes Plan: Supplemental oxygen and BiPAP as needed to maintain saturations. Management of acute CHF exacerbation as above. Encourage pulmonary toilet and ambulation. (4) Hypertension Is this a current diagnosis for this admission?: Yes Plan: Acceptable blood pressures today. Continue home dose metoprolol, terazosin, and lisinopril. IV furosemide for diuresis. Cardiac diet. (5) DVT prophylaxis Is this a current diagnosis for this admission?: Yes Plan: Subcutaneous Lovenox (6) Puncture wound of foot Qualifiers: Encounter type: initial encounter Laterality: right Qualified Code(s): S91.331A - Puncture wound without foreign body, right foot, initial encounter Is this a current diagnosis for this admission?: Yes Plan: Patient reports that he stepped on a nail yesterday afternoon. He is noted to have a puncture wound to the plantar surface of his right foot. No surrounding erythema, no drainage. Update tetanus. - Time Time Spent with patient: 25-34 minutes Medications reviewed and adjusted accordingly: Yes Anticipated discharge: Home Within: within 24 hours
[2019-02-10] MEDS ORDERED: DOXAZOSIN MESYLATE 2 MG TABLET PO SCH (22:00)
[2019-02-10] MEDS ORDERED: (PENDING PHARMACY ID) (Terazosin Hcl [Terazosin Hcl] 2 MG) PO SCH (22:00)
[2019-02-11 04:32] LABS: ABSOLUTE EOSINOPHILS # (AUTO) 0.2 10^3/uL (0.0-0.6); ABSOLUTE LYMPHOCYTES (AUTO) 1.3 10^3/uL (0.5-4.7); ABSOLUTE MONOCYTES (AUTO) 0.6 10^3/uL (0.1-1.4); BASOPHILS % (AUTO) 0.5 % (0-2); EOSINOPHILS % (AUTO) 2.5 % (0-6); HEMATOCRIT 40.3 % (37.9-51.0); HEMOGLOBIN 13.7 g/dL (13.5-17.0); MEAN CORPUSCULAR HEMOGLOBIN 31.5 pg (27.0-33.4); MEAN CORPUSCULAR HGB CONC 33.9 g/dL (32.0-36.0); MEAN CORPUSCULAR VOLUME 93 fl (80-97); MONOCYTES % (AUTO) 7.9 % (3-13); PLATELET COUNT 190 10^3/uL (150-450); RED BLOOD COUNT 4.34 10^6/uL (4.35-5.55); RED CELL DISTRIBUTION WIDTH 13.8 % (11.5-14.0); SEGMENTED NEUTROPHILS % (AUTO) 71.1 % (42-78); TOTAL CELLS COUNTED % (AUTO) 100 %
[2019-02-11 08:52] VITALS: BP 133/94
[2019-02-11] MEDS ORDERED: FUROSEMIDE 40 MG TABLET ONE (09:33)
[2019-02-11] MEDS: ENOXAPARIN SODIUM INJ 40 MG/0.4 ML DISP.SYRIN SUBCUT SCH (09:34)
[2019-02-11] MEDS: ASPIRIN 325 MG TABLET, ENT COATED PO SCH (09:38)
[2019-02-11] MEDS: DOCUSATE SODIUM 100 MG CAPSULE PO SCH (09:38)
[2019-02-11] MEDS ORDERED: FUROSEMIDE 20 MG TABLET PO SCH (10:00)
[2019-02-11] MEDS ORDERED: METOPROLOL SUCCINATE 25 MG TAB.SR.24H PO SCH (10:00)
[2019-02-11] MEDS ORDERED: LISINOPRIL 5 MG TABLET PO SCH (10:00)
--- NOTE | 2019-02-12 19:03 | PDOC DISCHARGE SUMMARY ---
General - Admit/Disc Date/PCP Admission Date/Primary Care Provider: 02/10/19 05:29 Discharge Date: 02/11/19 - Discharge Diagnosis (1) Acute on chronic diastolic CHF (congestive heart failure) Is this a current diagnosis for this admission?: Yes Summary: Acute exacerbation is resolved. Patient is now asymptomatic when lying supine and maintains oxygen saturations while ambulatory on room air. Lung sounds clear and dependant edema has resolved. Patient was admitted to the medical floor and monitored on continuous cardiac telemetry. He was noted to have frequent PVCs which improved with resumption of home dose metoprolol. He was treated with IV furosemide for diuresis and is discharged home on p.o. furosemide with instructions to eat a low sodium diet and monitor daily weights. The patient is advised to follow up with his PCP within 1 week and to keep his previously scheduled appointment with Dr. Stewart for this week. He is instructed to return to the emergency department as needed for concerning symptoms. (2) Acute kidney injury Is this a current diagnosis for this admission?: Yes Summary: This is likely prerenal secondary to acute CHF from renal hypoperfusion. Creatinine possibly at baseline as the patient is not aware of his nml kidney funntion. He has excellent urinary output. Recommend optimizing cardiac function; keep scheduled appointment with curator herbarium. Recommend repeat chemistry with followup appointment with PCP. (3) Acute respiratory failure Is this a current diagnosis for this admission?: Yes Summary: Resolved; secondary to #1. (4) Hypertension Is this a current diagnosis for this admission?: Yes Summary: Acceptable blood pressures today. Continue home dose metoprolol, terazosin, and lisinopril. Resume home dose lasix at discharge. (5) Puncture wound of foot Is this a current diagnosis for this admission?: Yes Summary: Patient reports that he stepped on a nail the day prior to admission. He is noted to have a puncture wound to the plantar surface of his right foot. No surrounding erythema, no drainage. Tetanus immunization has been updated. Recommend frequent monitoring for infection. Keep clean/dry. (6) DVT prophylaxis Is this a current diagnosis for this admission?: Yes Summary: Subcutaneous heparin while admitted. (7) Chronic left shoulder pain Is this a current diagnosis for this admission?: Yes Summary: Recommend evaluation by orthopedic; referral provided. Short prescription for tramadol provided. - Additional Information Resuscitation Status: Full Code Discharge Diet: Cardiac Discharge Activity: Activity As Tolerated, Balance Activity w/Rest, Weigh Daily Prescriptions: Tramadol HCl [Ultram 50 mg Tablet] 50 mg PO Q4HP PRN #20 tab PRN Reason: Home Medications: Furosemide [Lasix 20 mg Tablet] 20 mg PO DAILY 02/10/19 Lisinopril [Prinivil 5 mg Tablet] 5 mg PO DAILY 02/10/19 Metoprolol Succinate [Toprol Xl 25 mg Tab.sr] 25 mg PO DAILY 02/10/19 Terazosin HCl 2 mg PO QHS 02/10/19 Acetaminophen [Tylenol 325 mg Tablet] 650 mg PO Q4HP PRN tablet 02/11/19 Docusate Sodium [Colace 100 mg Capsule] 100 mg PO DAILY capsule 02/11/19 Tramadol HCl [Ultram 50 mg Tablet] 50 mg PO Q4HP PRN #20 tab 02/11/19 History of Present Illness History of Present Illness: Per H&P by Dr. Long: INES TURNER JR is a 68 year old obese male with history of hypertension and CHF who presented to the emergency room with acute onset of worsening dyspnea with associated orthopnea paroxysmal nocturnal dyspnea with dry cough and wheezing that fear or chills over the last couple of days. Denies any chest pain or palpitations. Denies any nausea or vomiting or abdominal pain. No bleeding diathesis. No dysuria, oliguria or hematuria or flank pain. Upon presentation to the emergency room his EKG showed sinus tachycardia with a rate of 106 with PVCs. Will signs were remarkable for a temperature of 99.1 and pulse oximetry was 98% on 2 L O2 by nasal cannula. Labs are remarkable for negative initial set of cardiac enzymes, lactic acid 1.2 and proBNP of 7780. Urinalysis showed more than 500 protein 2 WBCs and 1 RBCs 3 hyaline casts. Portable chest x-ray showed slightly increased left basilar opacity, pneumonia versus atelectasis. The patient was order 40 mg of IV Lasix. He will be admitted to telemetry bed for further evaluation and management. Physical Exam Vital Signs: Temp Pulse Resp BP Pulse Ox 97.5 F 68 18 133/94 H 97 02/11/19 10:17 02/11/19 10:17 02/11/19 10:17 02/11/19 10:17 02/11/19 10:17 Intake & Output 02/11/19 02/12/19 02/13/19 06:59 06:59 06:59 Intake Total 1212 Output Total 300 Balance 912 General appearance: PRESENT: no acute distress, cooperative, obese, well- developed, well-nourished Head exam: PRESENT: atraumatic, normocephalic Eye exam: PRESENT: conjunctiva pink, EOMI, PERRLA. ABSENT: scleral icterus Ear exam: PRESENT: normal external ear exam Mouth exam: PRESENT: moist, tongue midline Neck exam: ABSENT: carotid bruit, JVD, lymphadenopathy, thyromegaly Respiratory exam: PRESENT: clear to auscultation kevyn, symmetrical, unlabored. ABSENT: rales, rhonchi, wheezes Cardiovascular exam: PRESENT: RRR, +S1, +S2. ABSENT: diastolic murmur, rubs, systolic murmur Pulses: PRESENT: normal dorsalis pedis pul Vascular exam: PRESENT: normal capillary refill GI/Abdominal exam: PRESENT: normal bowel sounds, soft. ABSENT: distended, guarding, mass, organolmegaly, rebound, tenderness Rectal exam: PRESENT: deferred Extremities exam: PRESENT: full ROM. ABSENT: calf tenderness, clubbing, pedal edema, +1 edema Musculoskeletal exam: PRESENT: ambulatory Neurological exam: PRESENT: alert, awake, oriented to person, oriented to place, oriented to time, oriented to situation, CN II-XII grossly intact. ABSENT: motor sensory deficit Psychiatric exam: PRESENT: appropriate affect, normal mood. ABSENT: homicidal ideation, suicidal ideation Skin exam: PRESENT: dry, intact, warm. ABSENT: cyanosis, rash Results Laboratory Results: 02/11/19 03:18 02/10/19 03:20 02/10/19 02/10/19 02/10/19 03:20 03:20 03:20 Creatine Kinase 50 L CK-MB (CK-2) 1.23 Troponin I 0.064 NT-Pro-B Natriuret Pep 7780 H 02/10/19 02/10/19 02/10/19 05:56 05:56 11:52 Creatine Kinase 47 L Cancelled CK-MB (CK-2) 1.08 Troponin I 0.061 NT-Pro-B Natriuret Pep 02/10/19 02/10/19 02/10/19 11:52 12:30 12:30 Creatine Kinase 51 L CK-MB (CK-2) Cancelled 1.23 Troponin I Cancelled 0.069 NT-Pro-B Natriuret Pep 02/10/19 02/10/19 17:20 17:20 Creatine Kinase 51 L CK-MB (CK-2) 1.20 Troponin I 0.068 NT-Pro-B Natriuret Pep Impressions: Chest X-Ray 02/10/19 03:28 IMPRESSION: Increasing left basilar opacities, which may represent pneumonia or atelectasis. copyright 2010 [employer]- All Rights Reserved Qualifiers - * PATIENT BEING DISCHARGED WITH ANY OF THE FOLLOWING DIAGNOSIS: No Acute Heart Failure - Is this a Heart Failure Patient?: Yes Documentation of LVEF assessment?: Planned for after discharge LVEF < 40%?: No- if no continue to question #3 a) Discharged on ACEI?: Yes b) Discharges on ARB?: No-document contraindications - one PRUDENCIO c) Discharged on ARNI?: No-Document Contraindications Reason(s) not discharged on ARNI: ACEI use within the prior 36 hours d) Discharged on evidence-based Beta nando(carvedilol, sustained release metoprolol succinate, or bisoprolol)?: Yes e) For LVEF <35%, discharged on Aldosterone antagonist?: N/A (LVEF > or = 35%) 3. Anticoagulant therapy for permanect/persistent/paraoxysmal Afib or Aflutter: N/A Plan Discharge Plan: Patient is discharged to home with self care. He is instructed to follow up with primary care provider within 1 week. Keep scheduled appointment with your new curator herbarium, Dr. Stewart, for this week (appointment was made prior to admission). Eat a low sodium diet. Weigh daily; if gain more than 2 lbs overnight, take an extra lasix dose that morning (40 mg instead of usual 20 mg). If you must do this more than twice weekly, notify doctor. Return to the emergency department as needed for concerning symptoms. Time Spent: Greater than 30 Minutes
== END 2019-02-11 11:23 | disposition home or self-care (01) | DRG 291 ==
LOC: ER 03:00 → EH 05:29 → 4N 06:50
PROVIDERS: ADMIT Family Medicine; ATTEND Family Medicine
PROC: 3E0234Z Introduction of Serum, Toxoid and Vaccine into Muscle, Percutaneous Approach (ICD-10-PCS; principal; 2019-02-10)
DX: I11.0 Hypertensive heart disease with heart failure (principal); J96.01 Acute respiratory failure with hypoxia; N17.9 Acute kidney failure, unspecified; G45.8 Other transient cerebral ischemic attacks and related syndromes; I50.33 Acute on chronic diastolic (congestive) heart failure; S91.331A Puncture wound without foreign body, right foot, initial encounter; M25.512 Pain in left shoulder; W45.0XXA Nail entering through skin, initial encounter; Y93.89 Activity, other specified; Y92.89 Other specified places as the place of occurrence of the external cause; Z23 Encounter for immunization
CPT/HCPCS: 36415; 71045; 80053; 81001; 82550; 82553; 82803; 83605; 83735; 83880; 84443; 84484; 85025; 87040; 87077; 87186; 90715; 93005; 93010; 94660; 99285; J1650; J1940; J3490

== ENCOUNTER 2019-03-02 04:45 | Inpatient (IN) | payer MEDICARE, OTHER ==
[2019-03-02] MEDS ORDERED: FUROSEMIDE INJ/PF 40 MG/4 ML SDV IV ONE (04:54)
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
[2019-03-02 05:14] LABS: ABSOLUTE EOSINOPHILS # (AUTO) 0.2 10^3/uL (0.0-0.6); ABSOLUTE LYMPHOCYTES (AUTO) 1.5 10^3/uL (0.5-4.7); ABSOLUTE MONOCYTES (AUTO) 0.5 10^3/uL (0.1-1.4); ABSOLUTE NEUT (AUTO) 5.2 10^3/uL (1.7-8.2); BASOPHILS % (AUTO) 0.5 % (0-2); EOSINOPHILS % (AUTO) 3.2 % (0-6); LYMPHOCYTES % (AUTO) 19.7 % (13-45); MEAN CORPUSCULAR HEMOGLOBIN 31.7 pg (27.0-33.4); MEAN CORPUSCULAR VOLUME 93 fl (80-97); MONOCYTES % (AUTO) 7.3 % (3-13); PLATELET COUNT 214 10^3/uL (150-450); RED BLOOD COUNT 4.73 10^6/uL (4.35-5.55); RED CELL DISTRIBUTION WIDTH 13.7 % (11.5-14.0); SEGMENTED NEUTROPHILS % (AUTO) 69.3 % (42-78); TOTAL CELLS COUNTED % (AUTO) 100 %; WHITE BLOOD COUNT 7.5 10^3/uL (4.0-10.5)
[2019-03-02 05:24] LABS: ALBUMIN 3.8 g/dL (3.5-5.0); ALKALINE PHOSPHATASE 96 U/L (38-126); ANION GAP 10 (5-19); ASPARTATE AMINO TRANSFERASE 24 U/L (17-59); BILIRUBIN,DIRECT 0.2 mg/dL (0.0-0.4); BILIRUBIN,TOTAL 0.4 mg/dL (0.2-1.3); BLOOD UREA NITROGEN 24 mg/dL (7-20); CALCIUM 9.3 mg/dL (8.4-10.2); CARBON DIOXIDE 24 mmol/L (22-30); CHLORIDE 106 mmol/L (98-107); GLUCOSE 116 mg/dL (75-110); POTASSIUM 4.6 mmol/L (3.6-5.0); TOTAL PROTEIN 6.7 g/dL (6.3-8.2)
[2019-03-02 05:38] LABS: TROPONIN I 0.068 ng/mL
--- NOTE | 2019-03-02 05:48 | RADIOLOGY REPORT (SQ) ---
CLINICAL HISTORY: dyspnea COMPARISON: February 10, 2019. TECHNIQUE: XR CHEST 1 VIEW 03/02/2019 5:06 AM CDT FINDINGS: The heart is mildly enlarged. Lungs are clear without consolidation, atelectasis, mass or edema. There is no pleural effusion. There is no pneumothorax. There are no acute osseous findings. IMPRESSION: Clear lungs.
[2019-03-02] MEDS ORDERED: ACETAMINOPHEN 325 MG TABLET PO PRN (07:52)
[2019-03-02] MEDS ORDERED: ONDANSETRON 4 MG TAB.RAPDIS PO PRN (07:52)
[2019-03-02] MEDS ORDERED: OXYCODONE-ACETAMINOPHEN 5-325 MG TABLET PO PRN (07:52)
[2019-03-02] MEDS ORDERED: ONDANSETRON HCL INJ/PF 4 MG/2 ML SDV IV PRN (07:52)
[2019-03-02] MEDS: FUROSEMIDE INJ/PF 40 MG/4 ML SDV IV SCH ×2 (14:06→21:50)
[2019-03-02] MEDS: FAMOTIDINE 20 MG TABLET PO SCH ×2 (14:08→21:50)
[2019-03-02] MEDS: METOPROLOL SUCCINATE 25 MG TAB.SR.24H PO SCH (14:08)
[2019-03-02] MEDS: LISINOPRIL 5 MG TABLET PO SCH (14:08)
[2019-03-02] MEDS: DOCUSATE SODIUM 100 MG CAPSULE PO SCH (14:09)
[2019-03-02] MEDS: HEPARIN SOD (PORCINE) 5,000 UNIT/ML 1 ML VIAL SUBCUT SCH ×2 (14:12→21:50)
[2019-03-02 15:42] LABS: ANION GAP 12 (5-19); BLOOD UREA NITROGEN 26 mg/dL (7-20); CALCIUM 9.4 mg/dL (8.4-10.2); CARBON DIOXIDE 25 mmol/L (22-30); CHLORIDE 102 mmol/L (98-107); GLUCOSE 178 mg/dL (75-110); POTASSIUM 4.4 mmol/L (3.6-5.0)
--- NOTE | 2019-03-02 17:33 | Progress Note ---
Provider Note Provider Note: In reviewing the past records patient has had elevated troponins on the last 2 previous visits, as well as elevated BNP's
[2019-03-03] MEDS: FUROSEMIDE INJ/PF 40 MG/4 ML SDV IV SCH ×2 (06:21→21:05)
[2019-03-03] MEDS: HEPARIN SOD (PORCINE) 5,000 UNIT/ML 1 ML VIAL SUBCUT SCH ×3 (06:21→21:05)
[2019-03-03 06:23] LABS: ANION GAP 9 (5-19); BLOOD UREA NITROGEN 31 mg/dL (7-20); CALCIUM 8.9 mg/dL (8.4-10.2); CARBON DIOXIDE 26 mmol/L (22-30); CHLORIDE 104 mmol/L (98-107); GLUCOSE 99 mg/dL (75-110); POTASSIUM 4.4 mmol/L (3.6-5.0)
[2019-03-03] MEDS: FAMOTIDINE 20 MG TABLET PO SCH ×2 (10:47→21:06)
[2019-03-03] MEDS: METOPROLOL SUCCINATE 25 MG TAB.SR.24H PO SCH (10:47)
[2019-03-03] MEDS: DOCUSATE SODIUM 100 MG CAPSULE PO SCH (10:47)
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
[2019-03-03] MEDS: LISINOPRIL 5 MG TABLET PO SCH (15:15)
--- NOTE | 2019-03-03 18:36 | EKG REPORT ---
SEVERITY:- ABNORMAL ECG - SINUS TACHYCARDIA PAIRED VENTRICULAR PREMATURE COMPLEXES LEFT ATRIAL ABNORMALITY NONSPECIFIC INTRAVENTRICULAR CONDUCTION DELAY CONSIDER ANTEROSEPTAL INFARCT MINIMAL ST DEPRESSION, INFERIOR LEADS : Confirmed by: Parul Stewart 03-Mar-2019 18:35:45
--- NOTE | 2019-03-03 18:36 | EKG REPORT ---
SEVERITY:- ABNORMAL ECG - SINUS RHYTHM PROBABLE LEFT ATRIAL ABNORMALITY ABNRM R PROG, CONSIDER ASMI OR LEAD PLACEMENT NONSPECIFIC T ABNORMALITIES, LATERAL LEADS PROLONGED QT INTERVAL : Confirmed by: Parul Stewart 03-Mar-2019 18:35:33
[2019-03-04] MEDS: HEPARIN SOD (PORCINE) 5,000 UNIT/ML 1 ML VIAL SUBCUT SCH (06:33)
[2019-03-04 07:20] LABS: ANION GAP 10 (5-19); BLOOD UREA NITROGEN 41 mg/dL (7-20); CALCIUM 8.9 mg/dL (8.4-10.2); CARBON DIOXIDE 26 mmol/L (22-30); CHLORIDE 101 mmol/L (98-107); GLUCOSE 101 mg/dL (75-110); POTASSIUM 4.5 mmol/L (3.6-5.0)
[2019-03-04] MEDS: DOCUSATE SODIUM 100 MG CAPSULE PO SCH (11:02)
[2019-03-04] MEDS: METOPROLOL SUCCINATE 25 MG TAB.SR.24H PO SCH (11:03)
[2019-03-04] MEDS: FAMOTIDINE 20 MG TABLET PO SCH (11:03)
[2019-03-04] MEDS: LISINOPRIL 5 MG TABLET PO SCH (11:03)
[2019-03-04] MEDS: FUROSEMIDE INJ/PF 40 MG/4 ML SDV IV SCH (11:04)
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
[2019-03-04 12:17] VITALS: BP 149/58
--- NOTE | 2019-03-04 23:39 | XCELERA REPORT ---
[address] [address] Transthoracic Echocardiogram Report Name: INES TURNER JR Age: 68 yrs Gender: Male : 1950 Patient Status: Inpatient Patient Location: [address] [place] [address] Study Date: 03/04/2019 09:54 AM Height: 69 in Weight: 250 lb BSA: 2.3 m2 Procedure: A complete two-dimensional transthoracic echocardiogram was performed (2D, M-mode, spectral and color flow Doppler). The study was technically difficult with many images being suboptimal in quality. Reason For Study: chf Ordering Physician: DAYANA OLEARY Performed By: Thomas Ortiz Interpretation Summary The Ejection Fraction estimate is 35-40% There is mild concentric left ventricular hypertrophy. Left ventricular systolic function is moderately reduced. Doppler measurements suggest pseudonormalized left ventricular relaxation, which is associated with grade II/IV or mild to moderate diastolic dysfunction Regional wall motion abnormalities cannot be excluded due to limited visualization. The right ventricular systolic function is normal. The left atrium is mildly dilated. The right atrium is normal in size There is a mild to moderate amount of mitral regurgitation There is no mitral valve stenosis. There is a trace amount of aortic regurgitation There is no aortic valve stenosis Tricuspid regurgitation jet envelope not well defined to measure RV systolic pressure accurately. There is no tricuspid stenosis. The aortic root is not well visualized but is probably normal size. The inferior vena cava was not well visualized There is no pericardial effusion. MMode/2D Measurements & Calculations RVDd: 4.0 cm LVIDd: 6.4 cm FS: 31.3 % Ao root diam: 3.0 cm IVSd: 0.93 cm LVIDs: 4.4 cm EDV(Teich): 210.6 ml Ao root area: 7.2 cm2 LVPWd: 0.86 cm ESV(Teich): 88.5 ml LA dimension: 4.3 cm EF(Teich): 58.0 % Doppler Measurements & Calculations MV E max brandin: MV P1/2t max brandin: Ao V2 max: LV V1 max P.1 cm/sec 129.1 cm/sec 184.6 cm/sec 4.5 mmHg MV A max brandin: MV P1/2t: 74.3 msec Ao max PG: LV V1 max: 170.0 cm/sec MVA(P1/2t): 3.0 cm2 13.6 mmHg 106.4 cm/sec MV E/A: 0.74 MV dec slope: LV dP/dt: 1010 mmHg/s 509.3 cm/sec2 MV dec time: 0.15 sec PA V2 max: MV P1/2t-pr_phl: 88.8 cm/sec 74.3 msec PA max P.2 mmHg Left Ventricle The left ventricle is grossly normal size. There is mild concentric left ventricular hypertrophy. Left ventricular systolic function is moderately reduced. The Ejection Fraction estimate is 35-40%. Doppler measurements suggest pseudonormalized left ventricular relaxation, which is associated with grade II/IV or mild to moderate diastolic dysfunction. Regional wall motion abnormalities cannot be excluded due to limited visualization. Right Ventricle The right ventricle is grossly normal size. There is normal right ventricular wall thickness. The right ventricular systolic function is normal. Atria The right atrium is normal in size. The left atrium is mildly dilated. Interarterial septum not well visualized and not well dopplered. Cannot comment on ASD/PFO presence. Mitral Valve The mitral valve leaflets are sclerotic, but show no functional abnormalities. There is no mitral valve stenosis. There is a mild to moderate amount of mitral regurgitation. Aortic Valve The aortic valve is not well visualized secondary to technical limitations. There is no aortic valve stenosis. There is a trace amount of aortic regurgitation. Tricuspid Valve The tricuspid valve is not well visualized, but is grossly normal. There is no tricuspid stenosis. Tricuspid regurgitation jet envelope not well defined to measure RV systolic pressure accurately. Pulmonic Valve The pulmonic valve is not well visualized. Great Vessels The aortic root is not well visualized but is probably normal size. The inferior vena cava was not well visualized. Effusions There is no pericardial effusion. : DAYANA OLEARY Shyamal
== END 2019-03-04 12:41 | disposition home or self-care (01) | DRG 292 ==
LOC: ER 04:45 → EH 06:45 → OBSVTOIN 07:52 → 3S 09:24
PROVIDERS: ADMIT Emergency Medicine; ATTEND Emergency Medicine
DX: I11.0 Hypertensive heart disease with heart failure (principal); G45.8 Other transient cerebral ischemic attacks and related syndromes; I50.9 Heart failure, unspecified; R09.02 Hypoxemia; N40.0 Benign prostatic hyperplasia without lower urinary tract symptoms; Z91.19 Patient's noncompliance with other medical treatment and regimen
CPT/HCPCS: 36415; 71045; 80048; 80053; 82550; 82962; 83735; 83880; 84484; 85025; 93005; 93010; 93306; 94660; 96374; 99285; J1644; J1940

== ENCOUNTER 2019-03-21 05:15 | Observation (INO) | payer MEDICARE, OTHER ==
--- NOTE | 2019-03-21 05:53 | RADIOLOGY REPORT (SQ) ---
EXAM DESCRIPTION: XR CHEST 1 VIEW COMPLETED DATE/TME: 03/21/2019 05:16 CLINICAL HISTORY: 68 years Male, difficulty breathing COMPARISON: 03/02/19 NUMBER OF VIEWS/TECHNIQUE: 1/AP FINDINGS: Adequate lung volume, mild interstitial markings, mild central edema, normal cardiac silhouette, and intact bony thorax.Atherosclerotic vascular disease. IMPRESSION: Mild interstitial markings. Differential diagnosis includes pulmonary edema, atypical pneumonitis, and chronic interstitial lung disease.
[2019-03-21 06:09] LABS: ABSOLUTE EOSINOPHILS # (AUTO) 0.3 10^3/uL (0.0-0.6); ABSOLUTE LYMPHOCYTES (AUTO) 1.1 10^3/uL (0.5-4.7); ABSOLUTE MONOCYTES (AUTO) 0.5 10^3/uL (0.1-1.4); ABSOLUTE NEUT (AUTO) 4.5 10^3/uL (1.7-8.2); BASOPHILS % (AUTO) 0.7 % (0-2); HEMATOCRIT 41.9 % (37.9-51.0); HEMOGLOBIN 14.2 g/dL (13.5-17.0); MEAN CORPUSCULAR HEMOGLOBIN 31.7 pg (27.0-33.4); MEAN CORPUSCULAR HGB CONC 33.8 g/dL (32.0-36.0); MEAN CORPUSCULAR VOLUME 94 fl (80-97); MONOCYTES % (AUTO) 8.4 % (3-13); PLATELET COUNT 186 10^3/uL (150-450); RED BLOOD COUNT 4.47 10^6/uL (4.35-5.55); RED CELL DISTRIBUTION WIDTH 13.7 % (11.5-14.0); SEGMENTED NEUTROPHILS % (AUTO) 69.9 % (42-78); TOTAL CELLS COUNTED % (AUTO) 100 %; WHITE BLOOD COUNT 6.5 10^3/uL (4.0-10.5)
--- NOTE | 2019-03-21 06:25 | ER Document Report ---
ED Respiratory Problem - General Chief Complaint: Shortness Of Breath Stated Complaint: DIFFICULTY BREATHING Time Seen by Provider: 03/21/19 05:34 Notes: 68 year old male arrives with c/o sob via EMS on CPAP. He feels improved when I see him. 2-3 days of increased sob. ? Fever a day ago. No rash. Some le edema accompanies. No chest pain. Tonight awoke with sob. Had call EMS. TRAVEL OUTSIDE OF THE [place] IN LAST 30 DAYS: No - HPI Patient complains to provider of: COPD Severity: Moderate Short of Breath: Moderate Cough: Nonproductive Sputum amount: None EMS treatments: CPAP Associated symptoms: Ankle/leg swelling - Related Data Allergies/Adverse Reactions: No Known Allergies Allergy (Unverified 02/01/19 13:14) Past Medical History - General Information source: Patient - Social History Smoking Status: Former Smoker Chew tobacco use (# tins/day): Yes Frequency of alcohol use: Occasional Drug Abuse: None Family History: DM, Hypertension Patient has suicidal ideation: No Patient has homicidal ideation: No - Past Medical History Cardiac Medical History: Reports: Hx Congestive Heart Failure, Hx Hypertension Denies: Hx Heart Attack Endocrine Medical History: Reports: None Renal/ Medical History: Reports: Hx Benign Prostatic Hyperplasia. Denies: Hx Peritoneal Dialysis Psychiatric Medical History: Denies: Hx Depression - Immunizations Hx Pneumococcal Vaccination: 12/23/18 Review of Systems - Review of Systems Constitutional: No symptoms reported EENT: No symptoms reported Cardiovascular: See HPI Respiratory: See HPI, Cough, Short of breath Gastrointestinal: No symptoms reported Genitourinary: No symptoms reported Male Genitourinary: No symptoms reported Musculoskeletal: No symptoms reported Skin: No symptoms reported Hematologic/Lymphatic: No symptoms reported Neurological/Psychological: No symptoms reported Physical Exam - Vital signs Vitals: Temp Pulse Resp BP Pulse Ox 98.6 F 95 23 H 150/88 H 93 03/21/19 05:16 03/21/19 05:16 03/21/19 05:16 03/21/19 05:16 03/21/19 05:16 Interpretation: Normal - General General appearance: Appears well, Alert - HEENT Head: Normocephalic, Atraumatic Eyes: Normal Pupils: PERRL - Respiratory Respiratory status: No respiratory distress Chest status: Nontender Breath sounds: Decreased air movement Chest palpation: Normal - Cardiovascular Rhythm: Regular Heart sounds: Normal auscultation Murmur: No - Abdominal Inspection: Normal Distension: No distension Bowel sounds: Normal Tenderness: Nontender Organomegaly: No organomegaly - Back Back: Normal, Nontender - Extremities General upper extremity: Normal inspection, Nontender, Normal color, Normal ROM, Normal temperature General lower extremity: Normal inspection, Nontender, Edema, Normal color, Normal ROM, Normal temperature. No: Akanksha's sign - Neurological Neuro grossly intact: Yes Cognition: Normal Orientation: AAOx4 [place] Coma Scale Eye Opening: Spontaneous [place] Coma Scale Verbal: Oriented [place] Coma Scale Motor: Obeys Commands [place] Coma Scale Total: 15 Speech: Normal Motor strength normal: LUE, RUE, LLE, RLE Sensory: Normal - Psychological Associated symptoms: Normal affect, Normal mood - Skin Skin Temperature: Warm Skin Moisture: Dry Skin Color: Normal Course - Re-evaluation Re-evalutation: 03/21/19 07:57 MDM 68 year old with chf and h/o same. No evidence of infection at this time. Not diabetic. Some renal insuf and about at baseline comparing old records. I have discussed with Niki - Shania landeros see. I have discussed with pt and family and they expressed understanding/. - Vital Signs Vital signs: Temp Pulse Resp BP Pulse Ox 98.6 F 95 19 139/106 H 97 03/21/19 05:16 03/21/19 05:16 03/21/19 07:01 03/21/19 07:01 03/21/19 07:01 - Laboratory Result Diagrams: 03/21/19 05:50 03/21/19 05:50 Laboratory results interpreted by me: 03/21/19 03/21/19 05:50 05:50 BUN 27 H Creatinine 1.65 H Est GFR ( Amer) 50 L Est GFR (MDRD) Non-Af 41 L Glucose 115 H NT-Pro-B Natriuret Pep 4940 H - Diagnostic Test Radiology reviewed: Image reviewed, Reports reviewed Discharge - Discharge Clinical Impression: Acute respiratory failure Qualifiers: Respiratory failure complication: hypoxia Qualified Code(s): J96.01 - Acute respiratory failure with hypoxia Condition: Fair Disposition: ADMITTED INPATIENT Admitting Provider: Sammy (Hospitalist) Unit Admitted: Telemetry
[2019-03-21 06:31] LABS: ALBUMIN 3.6 g/dL (3.5-5.0); ALKALINE PHOSPHATASE 84 U/L (38-126); ANION GAP 8 (5-19); ASPARTATE AMINO TRANSFERASE 26 U/L (17-59); BILIRUBIN,DIRECT 0.1 mg/dL (0.0-0.4); BILIRUBIN,TOTAL 0.7 mg/dL (0.2-1.3); BLOOD UREA NITROGEN 27 mg/dL (7-20); CALCIUM 8.6 mg/dL (8.4-10.2); CARBON DIOXIDE 24 mmol/L (22-30); CHLORIDE 107 mmol/L (98-107); CREATINE KINASE 60 U/L (55-170); GLUCOSE 115 mg/dL (75-110); POTASSIUM 4.6 mmol/L (3.6-5.0); TOTAL PROTEIN 6.4 g/dL (6.3-8.2)
[2019-03-21] MEDS ORDERED: ASPIRIN 81 MG TABLET, CHEWABLE PO ONE (06:31)
[2019-03-21 06:43] LABS: CREATINE KINASE MB 0.91 ng/mL (<4.55)
[2019-03-21 06:45] LABS: TROPONIN I 0.044 ng/mL
[2019-03-21] MEDS ORDERED: FUROSEMIDE INJ/PF 40 MG/4 ML SDV IV ONE (07:45)
[2019-03-21] MEDS ORDERED: NITROGLYCERIN 2% OINTMENT 1 GM PACKET TP ONE (07:45)
[2019-03-21] MEDS ORDERED: ENALAPRILAT DIHYDRATE INJ/PF 1.25 MG/1 ML SDV IV ONE (07:46)
--- NOTE | 2019-03-21 09:07 | EKG REPORT ---
SEVERITY:- ABNORMAL ECG - SINUS TACHYCARDIA PAIRED VENTRICULAR PREMATURE COMPLEXES PROBABLE LEFT ATRIAL ABNORMALITY CONSIDER ANTEROSEPTAL INFARCT BORDERLINE PROLONGED QT INTERVAL : Confirmed by: Parul Stewart 21-Mar-2019 09:06:29
[2019-03-21] MEDS ORDERED: MAG HYDROX/AL HYDROX/SIMETH SUSP 30 ML UDCUP PO PRN (09:08)
[2019-03-21] MEDS ORDERED: ACETAMINOPHEN 325 MG TABLET PO PRN (09:08)
[2019-03-21] MEDS ORDERED: ALBUTEROL SULFATE 0.083% NEB 2.5 MG/3 ML AMPUL NEB PRN (09:08)
[2019-03-21] MEDS ORDERED: MAGNESIUM HYDROXIDE SUSP 30 ML UDCUP PO PRN (09:08)
[2019-03-21] MEDS ORDERED: ONDANSETRON HCL INJ/PF 4 MG/2 ML SDV IV PRN (09:08)
[2019-03-21] MEDS ORDERED: TRAMADOL HCL 50 MG TABLET PO PRN (09:13)
[2019-03-21] MEDS: METOPROLOL SUCCINATE 25 MG TAB.SR.24H PO SCH (10:26)
[2019-03-21] MEDS: DOCUSATE SODIUM 100 MG CAPSULE PO SCH (10:27)
[2019-03-21] MEDS: LISINOPRIL 5 MG TABLET PO SCH (10:27)
[2019-03-21 10:58] LABS: APPEARANCE,URINE CLEAR; BILIRUBIN,URINE NEGATIVE (NEGATIVE); COLOR,URINE STRAW; GLUCOSE, URINE NEGATIVE (NEGATIVE); KETONES,URINE NEGATIVE (NEGATIVE); LEUKOCYTE ESTERASE,URINE NEGATIVE (NEGATIVE); NITRITE,URINE NEGATIVE (NEGATIVE); PROTEIN,URINE 30 mg/dL (NEGATIVE); URINE SPECIFIC GRAVITY 1.006; UROBILINOGEN,URINE NEGATIVE mg/dL (<2.0)
[2019-03-21] MEDS: HEPARIN SOD (PORCINE) 5,000 UNIT/ML 1 ML VIAL SUBCUT SCH ×2 (15:14→21:23)
--- NOTE | 2019-03-21 15:22 | PDOC PROGRESS REPORT ---
Subjective Progress Note for:: 03/21/19 Subjective:: Patient was admitted through the emergency room with shortness of breath which got progressively worse. Patient was in mild respiratory distress. He was treated with positive pressure noninvasive ventilation and IV Lasix. Currently he is much improved. He was recently seen in the office. Reason For Visit: CHF EXACERBATION Physical Exam Vital Signs: Temp Pulse Resp BP Pulse Ox 97.4 F 75 19 156/86 H 93 03/21/19 12:36 03/21/19 12:38 03/21/19 12:36 03/21/19 12:36 03/21/19 12:36 Intake & Output 03/20/19 03/21/19 03/22/19 06:59 06:59 06:59 Output Total 901 Balance -901 Weight 111 kg 110.3 kg Exam: GENERAL: well-nourished and in no acute distress. Alert and oriented x3 HEAD: Atraumatic, normocephalic. EYES: ADDISON, sclera anicteric, conjunctiva are normal. ENT: Moist mucous membranes. No oral ulcerations or bleeding gums noted. No obvious ear, nose or throat abnormalities noted. NECK: supple without lymphadenopathy. Trachea is central. No cervical or axillary lymphadenopathy noted. Carotids are 2+, JVD WNL LUNGS: Breath sounds clear bilaterally. No wheezes rales or rhonchi noted. No significant dullness noted on percussion. CHEST: Palpation of the chest wall shows no significant chest wall tenderness. HEART: [place] [employer], No PSH, 1/6 CHUCHO aortic area, 1/6 duffy systolic murmur mitral area, no rubs, no gallops. ABDOMEN: Soft, no significant tenderness appreciated, normoactive bowel sounds. No guarding, no rebound. No rigidity noted . No masses appreciated. EXTREMITIES: Pedal pulses are 1-2+, no calf tenderness noted. No clubbing or cyanosis. negative pedal edema noted NEUROLOGICAL: Focused neurological exam showed no significant neurologic deficit. Normal speech, no focal weakness appreciated. PSYCH: Normal mood, normal affect. Judgment and insight within normal limits. SKIN: No significant ecchymosis, skin is noted to be warm. MUSCULOSKELETAL EXAM: No significant acute joint swelling noted. Results Laboratory Results: 03/21/19 05:50 03/21/19 05:50 03/21/19 03/21/19 03/21/19 05:50 05:50 05:50 WBC 6.5 RBC 4.47 Hgb 14.2 Hct 41.9 MCV 94 MCH 31.7 MCHC 33.8 RDW 13.7 Plt Count 186 Seg Neutrophils % 69.9 Sodium 139.4 Potassium 4.6 Chloride 107 Carbon Dioxide 24 Anion Gap 8 BUN 27 H Creatinine 1.65 H Est GFR ( Amer) 50 L Glucose 115 H Lactic Acid 1.7 Calcium 8.6 Magnesium Total Bilirubin 0.7 AST 26 Alkaline Phosphatase 84 Total Protein 6.4 Albumin 3.6 Urine Color Urine Appearance Urine pH Ur Specific [place] Urine Protein Urine Glucose (UA) Urine Ketones Urine Blood Urine Nitrite Ur Leukocyte Esterase Urine WBC (Auto) Urine RBC (Auto) 03/21/19 03/21/19 05:50 10:50 WBC RBC Hgb Hct MCV MCH MCHC RDW Plt Count Seg Neutrophils % Sodium Potassium Chloride Carbon Dioxide Anion Gap BUN Creatinine Est GFR ( Amer) Glucose Lactic Acid Calcium Magnesium 2.0 Total Bilirubin AST Alkaline Phosphatase Total Protein Albumin Urine Color STRAW Urine Appearance CLEAR Urine pH 7.0 Ur Specific [place] 1.006 Urine Protein 30 H Urine Glucose (UA) NEGATIVE Urine Ketones NEGATIVE Urine Blood NEGATIVE Urine Nitrite NEGATIVE Ur Leukocyte Esterase NEGATIVE Urine WBC (Auto) 0 Urine RBC (Auto) 1 03/21/19 03/21/19 05:50 05:50 Creatine Kinase 60 CK-MB (CK-2) 0.91 Troponin I 0.044 NT-Pro-B Natriuret Pep 4940 H EKG Comments: Shows sinus rhythm with frequent ventricular ectopics, no acute ST-T wave changes are noted Impressions: Chest X-Ray 03/21/19 05:16 IMPRESSION: Mild interstitial markings. Differential diagnosis includes pulmonary edema, atypical pneumonitis, and chronic interstitial lung disease. Assessment & Plan - Diagnosis (1) Acute on chronic diastolic CHF (congestive heart failure) Is this a current diagnosis for this admission?: Yes (2) Hypertension Qualifiers: Hypertension type: essential hypertension Qualified Code(s): I10 - Essential (primary) hypertension Is this a current diagnosis for this admission?: Yes (3) Acute kidney injury Is this a current diagnosis for this admission?: Yes (4) Hypoxia Is this a current diagnosis for this admission?: Yes - Notes Notes: Patient was admitted with respiratory failure, dyspnea and pedal edema. Patient is noted to be in congestive heart failure. Patient improved quickly with IV diuretics and positive pressure noninvasive ventilation. Patient claims to be at baseline. I am told by the hospitalist that they plan to discharge him tomorrow. Patient currently wearing a heart monitor. He should continue to wear this on discharge. Will start patient on beta-nando therapy, PRUDENCIO inhibitor/ARB therapy. As regards patient's other comorbid condition, they are under satisfactory management by the hospitalist. Hypoxemia has improved. Patient may have a element of COPD. - Time Time with patient: Greater than 35 minutes - More than 50% of the time spent coordinating care, discussing management plans with involved caregivers. M anagement plans discussed with involved personnels. Medical decision making was of moderate to high complexity, patient's has multiple comorbidities. Medications reviewed and adjusted accordingly: Yes
--- NOTE | 2019-03-21 18:15 | PDOC H&P ---
History of Present Illness Admission Date/PCP: 03/21/19 08:12 Patient complains of: dyspnea History of Present Illness: INES TURNER JR is a 68 year old male with a past medical history of diastolic CHF, left subclavian steal syndrome, and obesity who presented to the emergency department today with complaint of sudden onset dyspnea and orthopnea approximately 3 AM. The patient does admit to having had [place] food for dinner that evening. He denies being aware of dietary or fluid restrictions. He has been compliant with his medications and is currently wearing an event monitor for cardiology appointment that was scheduled today. Evaluation in the emergency department revealed Hypoxia on room air, hypertension, tachypnea, unremarkable CBC, baseline renal function (creatinine 1.65), elevated proBNP (4900) indeterminately elevated troponin (0.044), EKG demonstrating sinus tachycardia, and chest x-ray demonstrating mild pulmonary edema. The patient was provided nebulizer treatments, IV furosemide, and placed on BiPAP support. He was referred to the hospitalist service for admission and management of the above-stated complaints and findings. Past Medical History Cardiac Medical History: Reports: Congestive Heart Failure, Hypertension Denies: Myocardial Infarction Pulmonary Medical History: Reports: None EENT Medical History: Reports: None Neurological Medical History: Reports: None Endocrine Medical History: Reports: Obesity Renal/ Medical History: Reports: Chronic Kidney Disease Malignancy Medical History: Reports: None GI Medical History: Reports: None Musculoskeltal Medical History: Reports: None Skin Medical History: Reports: None Psychiatric Medical History: Reports: None Denies: Depression Traumatic Medical History: Reports: None Hematology: Reports: None Infectious Medical History: Reports: None Social History Information Source: Patient Lives with: Family Smoking Status: Former Smoker Frequency of Alcohol Use: None Hx Recreational Drug Use: No Drugs: None Hx Prescription Drug Abuse: No - Advance Directive Resuscitation Status: Full Code Family History Family History: DM, Hypertension Parental Family History Reviewed: Yes Children Family History Reviewed: Yes Sibling(s) Family History Reviewed.: Yes Medication/Allergy Home Medications: Aspirin [Aspirin 81 mg Chewable Tablet] 81 mg PO DAILY 03/21/19 Furosemide [Lasix 20 mg Tablet] 20 mg PO DAILY 03/21/19 Lisinopril [Prinivil 5 mg Tablet] 5 mg PO DAILY 03/21/19 Metoprolol Succinate [Toprol Xl 25 mg Tab.sr] 25 mg PO DAILY 03/21/19 Allergies/Adverse Reactions: No Known Allergies Allergy (Unverified 02/01/19 13:14) Review of Systems Constitutional: ABSENT: chills, fever(s), headache(s), weight gain, weight loss Eyes: ABSENT: visual disturbances Ears: ABSENT: hearing changes Cardiovascular: PRESENT: dyspnea on exertion, orthropnea, other - pedal edema. ABSENT: chest pain, edema, palpitations Respiratory: PRESENT: dyspnea. ABSENT: cough, hemoptysis Gastrointestinal: ABSENT: abdominal pain, constipation, diarrhea, hematemesis, hematochezia, nausea, vomiting Genitourinary: ABSENT: dysuria, hematuria Musculoskeletal: ABSENT: joint swelling Integumentary: ABSENT: rash, wounds Neurological: ABSENT: abnormal gait, abnormal speech, confusion, dizziness, focal weakness, syncope Psychiatric: ABSENT: anxiety, depression, homidical ideation, suicidal ideation Endocrine: ABSENT: cold intolerance, heat intolerance, polydipsia, polyuria Hematologic/Lymphatic: ABSENT: easy bleeding, easy bruising Physical Exam Vital Signs: Temp Pulse Resp BP Pulse Ox 97.4 F 75 19 156/86 H 93 03/21/19 12:36 03/21/19 12:38 03/21/19 12:36 03/21/19 12:36 03/21/19 12:36 Intake & Output 03/20/19 03/21/19 03/22/19 06:59 06:59 06:59 Output Total 901 Balance -901 Weight 111 kg 110.3 kg General appearance: PRESENT: no acute distress, cooperative, disheveled, obese, well-developed, well-nourished Head exam: PRESENT: atraumatic, normocephalic Eye exam: PRESENT: conjunctiva pink, EOMI, PERRLA. ABSENT: scleral icterus Ear exam: PRESENT: normal external ear exam Mouth exam: PRESENT: moist, tongue midline Neck exam: ABSENT: carotid bruit, JVD, lymphadenopathy, thyromegaly Respiratory exam: PRESENT: crackles - bibasliar, prolonged expiratory phas, symmetrical, unlabored. ABSENT: rales, rhonchi, wheezes Cardiovascular exam: PRESENT: RRR, +S1, +S2, systolic murmur. ABSENT: diastolic murmur, rubs Pulses: PRESENT: normal dorsalis pedis pul Vascular exam: PRESENT: normal capillary refill GI/Abdominal exam: PRESENT: normal bowel sounds, soft. ABSENT: distended, guarding, mass, organolmegaly, rebound, tenderness Rectal exam: PRESENT: deferred Extremities exam: PRESENT: full ROM, pedal edema, +1 edema - BLE. ABSENT: calf tenderness, clubbing Musculoskeletal exam: PRESENT: ambulatory Neurological exam: PRESENT: alert, awake, oriented to person, oriented to place, oriented to time, oriented to situation, CN II-XII grossly intact. ABSENT: motor sensory deficit Psychiatric exam: PRESENT: appropriate affect, normal mood. ABSENT: homicidal ideation, suicidal ideation Skin exam: PRESENT: dry, intact, warm. ABSENT: cyanosis, rash Results Laboratory Results: 03/21/19 05:50 03/21/19 05:50 03/21/19 03/21/19 03/21/19 05:50 05:50 05:50 WBC 6.5 RBC 4.47 Hgb 14.2 Hct 41.9 MCV 94 MCH 31.7 MCHC 33.8 RDW 13.7 Plt Count 186 Seg Neutrophils % 69.9 Sodium 139.4 Potassium 4.6 Chloride 107 Carbon Dioxide 24 Anion Gap 8 BUN 27 H Creatinine 1.65 H Est GFR ( Amer) 50 L Glucose 115 H Lactic Acid 1.7 Calcium 8.6 Magnesium Total Bilirubin 0.7 AST 26 Alkaline Phosphatase 84 Total Protein 6.4 Albumin 3.6 Urine Color Urine Appearance Urine pH Ur Specific [place] Urine Protein Urine Glucose (UA) Urine Ketones Urine Blood Urine Nitrite Ur Leukocyte Esterase Urine WBC (Auto) Urine RBC (Auto) 03/21/19 03/21/19 05:50 10:50 WBC RBC Hgb Hct MCV MCH MCHC RDW Plt Count Seg Neutrophils % Sodium Potassium Chloride Carbon Dioxide Anion Gap BUN Creatinine Est GFR ( Amer) Glucose Lactic Acid Calcium Magnesium 2.0 Total Bilirubin AST Alkaline Phosphatase Total Protein Albumin Urine Color STRAW Urine Appearance CLEAR Urine pH 7.0 Ur Specific [place] 1.006 Urine Protein 30 H Urine Glucose (UA) NEGATIVE Urine Ketones NEGATIVE Urine Blood NEGATIVE Urine Nitrite NEGATIVE Ur Leukocyte Esterase NEGATIVE Urine WBC (Auto) 0 Urine RBC (Auto) 1 03/21/19 03/21/19 05:50 05:50 Creatine Kinase 60 CK-MB (CK-2) 0.91 Troponin I 0.044 NT-Pro-B Natriuret Pep 4940 H Impressions: Chest X-Ray 03/21/19 05:16 IMPRESSION: Mild interstitial markings. Differential diagnosis includes pulmonary edema, atypical pneumonitis, and chronic interstitial lung disease. Assessment and Plan - Diagnosis (1) Acute on chronic diastolic CHF (congestive heart failure) Is this a current diagnosis for this admission?: Yes Plan: Echocardiogram 03/04/2019 revealed LVEF 35 to 40% with mild concentric left ventricular hypertrophy and moderate LV Diastolic dysfunction. proBNP is elevated to 4900. Chest x-ray demonstrated pulmonary edema. He has bilateral lower extremity pitting edema. Hypoxia on room air with bibasilar crackles; resolved following BiPAP support and lasix. Patient is admitted to the medical floor on continuous cardiac telemetry. We will resume his home medication regiment of lisinopril metoprolol, aspirin, and statin therapy. We will provide IV furosemide for diuresis. The patient was actually scheduled to have his new patient appointment with Dr. Stewart today; has been wearing event monitor in preparation for this visit. Spoke with Dr. Stewart and he will be able to see the patient in house today. Cardiac diet. Daily weights, Strict I&Os. Will ask patient educator and registered associate to provide patient education regarding dietary needs. (2) Acute respiratory failure with hypoxia Is this a current diagnosis for this admission?: Yes Plan: Secondary to #1; resolved. Supplemental oxygen as needed. Management as above. (3) Hypertension Qualifiers: Hypertension type: essential hypertension Qualified Code(s): I10 - Essential (primary) hypertension Is this a current diagnosis for this admission?: Yes Plan: Acceptable blood pressures are present; 118/89. Continue home dose lisinopril and metoprolol. Cardiac diet. Patient's strawhat sizer is consulted. (4) MARK (obstructive sleep apnea) Is this a current diagnosis for this admission?: Yes Plan: Family reports that the patient has had 3 sleep studies suggesting MARK, however has not yet qualified for CPAP. Will be able to do an overnight pulse oximetry study to determine need for oxygen while sleeping. Discussed with family members the importance of following up with the strawhat sizer to discuss a formal sleep study to determine eligibility for CPAP. (5) Obesity (BMI 30-39.9) Is this a current diagnosis for this admission?: Yes Plan: BMI 35.9. Lifestyle modification and dietary compliance encouraged. Registered dietitian and patient educator consulted. - Time Time Spent with patient: 35 or more minutes Medications reviewed and adjusted accordingly: Yes Anticipated discharge: Home Within: within 24 hours
[2019-03-21] MEDS: FUROSEMIDE INJ/PF 20 MG/2 ML SDV IV SCH (21:25)
[2019-03-22] MEDS: HEPARIN SOD (PORCINE) 5,000 UNIT/ML 1 ML VIAL SUBCUT SCH ×2 (05:17→13:14)
[2019-03-22 05:49] LABS: HEMATOCRIT 40.9 % (37.9-51.0); HEMOGLOBIN 13.9 g/dL (13.5-17.0); MEAN CORPUSCULAR HEMOGLOBIN 31.5 pg (27.0-33.4); MEAN CORPUSCULAR VOLUME 93 fl (80-97); PLATELET COUNT 172 10^3/uL (150-450); RED BLOOD COUNT 4.41 10^6/uL (4.35-5.55); WHITE BLOOD COUNT 5.9 10^3/uL (4.0-10.5)
[2019-03-22 06:05] LABS: ANION GAP 7 (5-19); BLOOD UREA NITROGEN 29 mg/dL (7-20); CALCIUM 8.7 mg/dL (8.4-10.2); CARBON DIOXIDE 26 mmol/L (22-30); CHLORIDE 104 mmol/L (98-107); CHOLESTEROL 242.65 mg/dL (0-200); GLUCOSE 93 mg/dL (75-110); POTASSIUM 4.4 mmol/L (3.6-5.0); TRIGLYCERIDES 155 mg/dL (<150)
[2019-03-22 06:17] LABS: DIRECT LDL 191 mg/dL (<100)
[2019-03-22] MEDS: DOCUSATE SODIUM 100 MG CAPSULE PO SCH (09:26)
[2019-03-22] MEDS: FUROSEMIDE INJ/PF 20 MG/2 ML SDV IV SCH (09:30)
[2019-03-22] MEDS: METOPROLOL SUCCINATE 25 MG TAB.SR.24H PO SCH (09:31)
[2019-03-22] MEDS: LISINOPRIL 5 MG TABLET PO SCH (09:31)
[2019-03-22] MEDS ORDERED: ASPIRIN 81 MG TABLET, CHEWABLE PO SCH (10:00)
[2019-03-22 12:13] VITALS: BP 109/76
--- NOTE | 2019-03-22 12:47 | PDOC PROGRESS REPORT ---
Subjective Progress Note for:: 03/22/19 Subjective:: Patient was admitted through the emergency room with shortness of breath which got progressively worse. Patient was in mild respiratory distress. He was treated with positive pressure noninvasive ventilation and IV Lasix. Currently he is much improved. He was recently seen in the office. 03/22/2019: Patient much improved. Is expected to be discharged. Patient qualified for oxygen therapy based on nocturnal oximetry report. He is waiting for that to be arranged. Patient denies any chest pain. Patient lipid panel came back extremely elevated with LDL over 190. Patient being placed on Lipitor 80 mg p.o. nightly. Orders written. Twelve-lead EKG is been nonacute. Reason For Visit: CHF EXACERBATION Physical Exam Vital Signs: Temp Pulse Resp BP Pulse Ox 97.9 F 86 17 109/76 97 03/22/19 12:00 03/22/19 12:00 03/22/19 12:00 03/22/19 12:00 03/22/19 12:00 Pulse Oximeter Nocturnal Start: 03/21/19 09:08 Freq: RTQ4 Status: Complete Protocol: Document 03/22/19 04:41 [facility] (Rec: 03/22/19 04:42 [facility] [id number]) Nocturnal Pulse Oximetry Equipment Usage Equipment in Use Nocturnal Spo2 Charge Charge Now Oxygen Delivery Method (includes room Room Air air) O2 Sat by Pulse Oximetry (92-100) 97 Continuous SpO2 Machine # 6 Intake & Output 03/21/19 03/22/19 03/23/19 06:59 06:59 06:59 Intake Total 1033 Output Total 1101 Balance -68 Weight 111 kg 111.5 kg Exam: GENERAL: well-nourished and in no acute distress. Alert and oriented x3 HEAD: Atraumatic, normocephalic. EYES: ADDISON, sclera anicteric, conjunctiva are normal. ENT: Moist mucous membranes. No oral ulcerations or bleeding gums noted. No obvious ear, nose or throat abnormalities noted. NECK: supple without lymphadenopathy. Trachea is central. No cervical or axillary lymphadenopathy noted. Carotids are 2+, JVD WNL LUNGS: Breath sounds clear bilaterally. No wheezes rales or rhonchi noted. No significant dullness noted on percussion. CHEST: Palpation of the chest wall shows no significant chest wall tenderness. 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 ABDOMEN: Soft, no significant tenderness appreciated, normoactive bowel sounds. No guarding, no rebound. No rigidity noted . No masses appreciated. EXTREMITIES: Pedal pulses are 1-2+, no calf tenderness noted. No clubbing or cyanosis. Trace to 1+ pedal edema noted NEUROLOGICAL: Focused neurological exam showed no significant neurologic deficit. Normal speech, no focal weakness appreciated. PSYCH: Normal mood, normal affect. Judgment and insight within normal limits. SKIN: No significant ecchymosis, skin is noted to be warm. MUSCULOSKELETAL EXAM: No significant acute joint swelling noted. Results Laboratory Results: 03/22/19 05:11 03/22/19 05:11 03/22/19 03/22/19 05:11 05:11 WBC 5.9 RBC 4.41 Hgb 13.9 Hct 40.9 MCV 93 MCH 31.5 MCHC 34.0 RDW 14.0 Plt Count 172 Sodium 137.1 Potassium 4.4 Chloride 104 Carbon Dioxide 26 Anion Gap 7 BUN 29 H Creatinine 1.80 H Est GFR ( Amer) 45 L Glucose 93 Calcium 8.7 Triglycerides 155 H Cholesterol 242.65 H LDL Cholesterol Direct 191 H VLDL Cholesterol 31.0 HDL Cholesterol 41 03/21/19 03/21/19 05:50 05:50 Creatine Kinase 60 CK-MB (CK-2) 0.91 Troponin I 0.044 NT-Pro-B Natriuret Pep 4940 H Impressions: Chest X-Ray 03/21/19 05:16 IMPRESSION: Mild interstitial markings. Differential diagnosis includes pulmonary edema, atypical pneumonitis, and chronic interstitial lung disease. Assessment & Plan - Diagnosis (1) Acute on chronic diastolic CHF (congestive heart failure) Is this a current diagnosis for this admission?: Yes (2) Hypertension Qualifiers: Hypertension type: essential hypertension Qualified Code(s): I10 - Essential (primary) hypertension Is this a current diagnosis for this admission?: Yes (3) Acute kidney injury Is this a current diagnosis for this admission?: Yes (4) Hypoxia Is this a current diagnosis for this admission?: Yes - Notes Notes: Congestive heart failure: Seems compensated on exam. Hyperlipidemia: LDL over 190. Have started patient on Lipitor 80 mg p.o. nightly. Will follow-up in the office. COPD: Possibly significant problems needing oxygen at night. Patient will benefit from sleep evaluation in view of nocturnal oximetry. - Time Time with patient: Greater than 35 minutes - More than 50% of the time spent coordinating care, discussing management plans with involved caregivers. Management plans discussed with involved personnels. Medical decision making was of moderate to high complexity, patient's has multiple comorbidities. Medications reviewed and adjusted accordingly: Yes
[2019-03-22] MEDS ORDERED: ATORVASTATIN CALCIUM 40 MG TABLET PO SCH (22:00)
--- NOTE | 2019-03-23 08:49 | EKG REPORT ---
SEVERITY:- ABNORMAL ECG - SINUS RHYTHM PROBABLE LEFT ATRIAL ABNORMALITY BORDERLINE LEFT AXIS DEVIATION CONSIDER ANTEROSEPTAL INFARCT NONSPECIFIC T ABNORMALITIES, LATERAL LEADS BORDERLINE PROLONGED QT INTERVAL : Confirmed by: Parul Stewart 23-Mar-2019 08:48:53
--- NOTE | 2019-03-23 18:27 | PDOC DISCHARGE SUMMARY ---
Impression - Admit/DC Date/PCP Admission Date/Primary Care Provider: 03/21/19 08:12 Discharge Date: 03/22/19 - Discharge Diagnosis (1) Acute on chronic diastolic CHF (congestive heart failure) Is this a current diagnosis for this admission?: Yes (2) Acute respiratory failure with hypoxia Is this a current diagnosis for this admission?: Yes (3) Hypertension Is this a current diagnosis for this admission?: Yes (4) MARK (obstructive sleep apnea) Is this a current diagnosis for this admission?: Yes (5) Obesity (BMI 30-39.9) Is this a current diagnosis for this admission?: Yes - Additional Information Resuscitation Status: Full Code Discharge Diet: Cardiac Discharge Activity: Activity As Tolerated, Balance Activity w/Rest, Weigh Daily Referrals: JASON DIAZ MD [ACTIVE STAFF] - 03/25/19 3:30 pm (Dr. Diaz wants you to follow up, in the office, on 03/22/19) ТАТЬЯНА WEBSTER MD [ACTIVE STAFF] - 03/28/19 1:45 pm Home Medications: Aspirin [Aspirin 81 mg Chewable Tablet] 81 mg PO DAILY 03/21/19 Furosemide [Lasix 20 mg Tablet] 20 mg PO DAILY 03/21/19 Lisinopril [Prinivil 5 mg Tablet] 5 mg PO DAILY 03/21/19 Metoprolol Succinate [Toprol Xl 25 mg Tab.sr] 25 mg PO DAILY 03/21/19 Acetaminophen [Tylenol 325 mg Tablet] 650 mg PO Q4HP PRN tablet 03/22/19 History of Present Illiness History of Present Illness: INES TURNER JR is a 68 year old male with a past medical history of diastolic CHF, left subclavian steal syndrome, and obesity who presented to the emergency department today with complaint of sudden onset dyspnea and orthopnea approximately 3 AM. The patient does admit to having had Japanese food for dinner that evening. He denies being aware of dietary or fluid restrictions. He has been compliant with his medications and is currently wearing an event monitor for cardiology appointment that was scheduled today. Evaluation in the emergency department revealed Hypoxia on room air, hypertension, tachypnea, unremarkable CBC, baseline renal function (creatinine 1.65), elevated proBNP (4900) indeterminately elevated troponin (0.044), EKG demonstrating sinus tachycardia, and chest x-ray demonstrating mild pulmonary edema. The patient was provided nebulizer treatments, IV furosemide, and placed on BiPAP support. He was referred to the hospitalist service for admission and management of the above-stated complaints and findings. Hospital Course Hospital Course: The patient was admitted to the medical floor on continuous cardiac telemetry. Echocardiogram 03/04/2019 revealed LVEF 35 to 40% with mild concentric left ventricular hypertrophy and moderate LV Diastolic dysfunction. proBNP is elevated to 4900. Chest x-ray demonstrated pulmonary edema. His home regimen of lisinopril, metoprolol, aspirin, and statin therapy were resumed. He was initially provided diuresis with IV furosemide. 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 Diaz, was consulted; medication management per his recommendations. Nocturnal pulse oximetry study did reveal multiple hypoxic events; lowest zoie aturation to 79%. 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 The patient had excellent urinary output overnight and the following morning had resolution of all of his symptoms. The patient is currently wearing an event monitor per Dr. Diaz's office. I did discuss with Dr. Diaz his frequent PVCs and short runs of V. tach. Dr. Diaz is aware and states that he will follow-up on Monday; no further medication changes at this time. Of note, the frequency of the patient's PVCs have decreased with resolution of his acute CHF exacerbation. The patient had the opportunity meet with the registered dietitian and patient educator. Myself and his family also had a long discussion about the importance of a low-sodium diet as the patient's meal the night prior to his admission certainly contributed to his exacerbation (Japanese buffet). The patient is discharged home in stable condition, asymptomatic, and ambulatory on room air. He is advised of the importance of following up with his primary care provider within [address] Diaz scheduled on Monday. He is also advised of the importance of obtaining formalized sleep study to rule out MARK. He is instructed to take his medications as prescribed. He is educated on the importance of maintaining a low-sodium diet, weighing himself daily, and reporting any weight gain of greater than 2 pounds to his provider. He is instructed to return to the emergency department as needed for concerning symptoms. Physical Exam Vital Signs: Temp Pulse Resp BP Pulse Ox 97.9 F 86 17 109/76 97 03/22/19 15:00 03/22/19 15:00 03/22/19 15:00 03/22/19 15:00 03/22/19 15:00 Pulse Oximeter Nocturnal Start: 03/21/19 09:08 Freq: RTQ4 Status: Complete Protocol: Document 03/22/19 04:41 [facility] (Rec: 03/22/19 04:42 [facility] [id number]) Nocturnal Pulse Oximetry Equipment Usage Equipment in Use Nocturnal Spo2 Charge Charge Now Oxygen Delivery Method (includes room Room Air air) O2 Sat by Pulse Oximetry (92-100) 97 Continuous SpO2 Machine # 6 Intake & Output 03/22/19 03/23/19 03/24/19 06:59 06:59 06:59 Intake Total 1033 Output Total 1101 Balance -68 Weight 111.5 kg General appearance: PRESENT: no acute distress, disheveled, obese, well- developed, well-nourished Head exam: PRESENT: atraumatic, normocephalic Eye exam: PRESENT: conjunctiva pink, EOMI, PERRLA. ABSENT: scleral icterus Ear exam: PRESENT: normal external ear exam Mouth exam: PRESENT: moist, tongue midline Neck exam: ABSENT: carotid bruit, JVD, lymphadenopathy, thyromegaly Respiratory exam: PRESENT: clear to auscultation kevyn, symmetrical, unlabored. ABSENT: rales, rhonchi, wheezes Cardiovascular exam: PRESENT: RRR, +S1, +S2. ABSENT: diastolic murmur, rubs, systolic murmur Pulses: PRESENT: normal dorsalis pedis pul Vascular exam: PRESENT: normal capillary refill GI/Abdominal exam: PRESENT: normal bowel sounds, soft. ABSENT: distended, guarding, mass, organolmegaly, rebound, tenderness Rectal exam: PRESENT: deferred Extremities exam: PRESENT: full ROM. ABSENT: calf tenderness, clubbing, pedal edema Musculoskeletal exam: PRESENT: ambulatory Neurological exam: PRESENT: alert, awake, oriented to person, oriented to place, oriented to time, oriented to situation, CN II-XII grossly intact. ABSENT: mo tor sensory deficit Psychiatric exam: PRESENT: appropriate affect, normal mood. ABSENT: homicidal ideation, suicidal ideation Skin exam: PRESENT: dry, intact, warm. ABSENT: cyanosis, rash Results Laboratory Results: WBC 5.9 10^3/uL (4.0-10.5) 03/22/19 05:11 RBC 4.41 10^6/uL (4.35-5.55) 03/22/19 05:11 Hgb 13.9 g/dL (13.5-17.0) 03/22/19 05:11 Hct 40.9 % (37.9-51.0) 03/22/19 05:11 MCV 93 fl (80-97) 03/22/19 05:11 MCH 31.5 pg (27.0-33.4) 03/22/19 05:11 MCHC 34.0 g/dL (32.0-36.0) 03/22/19 05:11 RDW 14.0 % (11.5-14.0) 03/22/19 05:11 Plt Count 172 10^3/uL (150-450) 03/22/19 05:11 Lymph % (Auto) 17.0 % (13-45) 03/21/19 05:50 Wilkes % (Auto) 8.4 % (3-13) 03/21/19 05:50 Eos % (Auto) 4.0 % (0-6) 03/21/19 05:50 Baso % (Auto) 0.7 % (0-2) 03/21/19 05:50 Absolute Neuts (auto) 4.5 10^3/uL (1.7-8.2) 03/21/19 05:50 Absolute Lymphs (auto) 1.1 10^3/uL (0.5-4.7) 03/21/19 05:50 Absolute Monos (auto) 0.5 10^3/uL (0.1-1.4) 03/21/19 05:50 Absolute Eos (auto) 0.3 10^3/uL (0.0-0.6) 03/21/19 05:50 Absolute Basos (auto) 0.0 10^3/uL (0.0-0.2) 03/21/19 05:50 Seg Neutrophils % 69.9 % (42-78) 03/21/19 05:50 Sodium 137.1 mmol/L (137-145) 03/22/19 05:11 Potassium 4.4 mmol/L (3.6-5.0) 03/22/19 05:11 Chloride 104 mmol/L (98-107) 03/22/19 05:11 Carbon Dioxide 26 mmol/L (22-30) 03/22/19 05:11 Anion Gap 7 (5-19) 03/22/19 05:11 BUN 29 mg/dL (7-20) H 03/22/19 05:11 Creatinine 1.80 mg/dL (0.52-1.25) H 03/22/19 05:11 Est GFR ( Amer) 45 (>60) L 03/22/19 05:11 Est GFR (MDRD) Non-Af 37 (>60) L 03/22/19 05:11 Glucose 93 mg/dL (75-110) 03/22/19 05:11 Hemoglobin A1c % 6.0 % (4.7-6.0) 03/22/19 05:11 Lactic Acid 1.7 mmol/L (0.7-2.1) 03/21/19 05:50 Calcium 8.7 mg/dL (8.4-10.2) 03/22/19 05:11 Magnesium 2.0 mg/dL (1.6-2.3) 03/21/19 05:50 Total Bilirubin 0.7 mg/dL (0.2-1.3) 03/21/19 05:50 Direct Bilirubin 0.1 mg/dL (0.0-0.4) 03/21/19 05:50 Neonat Total Bilirubin Not Reportable 03/21/19 05:50 Neonat Direct Bilirubin Not Reportable 03/21/19 05:50 Neonat Indirect Bili Not Reportable 03/21/19 05:50 AST 26 U/L (17-59) 03/21/19 05:50 ALT 22 U/L (<50) 03/21/19 05:50 Alkaline Phosphatase 84 U/L (38-126) 03/21/19 05:50 Creatine Kinase 60 U/L (55-170) 03/21/19 05:50 CK-MB (CK-2) 0.91 ng/mL (<4.55) 03/21/19 05:50 Troponin I 0.044 ng/mL 03/21/19 05:50 NT-Pro-B Natriuret Pep 4940 pg/mL (5-900) H 03/21/19 05:50 Total Protein 6.4 g/dL (6.3-8.2) 03/21/19 05:50 Albumin 3.6 g/dL (3.5-5.0) 03/21/19 05:50 Triglycerides 155 mg/dL (<150) H 03/22/19 05:11 Cholesterol 242.65 mg/dL (0-200) H 03/22/19 05:11 LDL Cholesterol Direct 191 mg/dL (<100) H 03/22/19 05:11 VLDL Cholesterol 31.0 mg/dL (10-31) 03/22/19 05:11 HDL Cholesterol 41 mg/dL (>40) 03/22/19 05:11 Urine Color STRAW 03/21/19 10:50 Urine Appearance CLEAR 03/21/19 10:50 Urine pH 7.0 (5.0-9.0) 03/21/19 10:50 Ur Specific [place] 1.006 03/21/19 10:50 Urine Protein 30 mg/dL (NEGATIVE) H 03/21/19 10:50 Urine Glucose (UA) NEGATIVE mg/dL (NEGATIVE) 03/21/19 10:50 Urine Ketones NEGATIVE mg/dL (NEGATIVE) 03/21/19 10:50 Urine Blood NEGATIVE (NEGATIVE) 03/21/19 10:50 Urine Nitrite NEGATIVE (NEGATIVE) 03/21/19 10:50 Urine Bilirubin NEGATIVE (NEGATIVE) 03/21/19 10:50 Urine Urobilinogen NEGATIVE mg/dL (<2.0) 03/21/19 10:50 Ur Leukocyte Esterase NEGATIVE (NEGATIVE) 03/21/19 10:50 Urine WBC (Auto) 0 /HPF 03/21/19 10:50 Urine RBC (Auto) 1 /HPF 03/21/19 10:50 Urine Mucus (Auto) RARE /LPF 03/21/19 10:50 Urine Ascorbic Acid NEGATIVE (NEGATIVE) 03/21/19 10:50 03/21/19 05:50 CK-MB (CK-2) 0.91 Troponin I 0.044 NT-Pro-B Natriuret Pep 4940 H Impressions: Chest X-Ray 03/21/19 05:16 IMPRESSION: Mild interstitial markings. Differential diagnosis includes pulmonary edema, atypical pneumonitis, and chronic interstitial lung disease. Plan Plan of Treatment: The patient is discharged home in stable condition. He is instructed to follow-up with his primary care provider within 1 week. He is scheduled a follow-up appointment with Dr. Diaz on Monday. Attempts were made to qualify the patient for home O2 utilizing his nocturnal pulse oximetry study; unfortunately, his insurance company rejected this on the basis of need for formalized sleep study to rule out MARK. He is instructed to take his medications as prescribed. Long discussion had with regard to importance of a low-sodium diet. He is instructed to return to the emergency department as needed for concerning symptoms. Stroke Is this a Stroke Patient?: No Acute Heart Failure - Is this a Heart Failure Patient?: Yes Documentation of LVEF assessment?: Yes LVEF < 40%?: Yes-if yes answer questions a through e a) Discharged on ACEI?: Yes b) Discharges on ARB?: No-document contraindications Reason(s) not discharged on ARB: Other - On PRUDENCIO c) Discharged on ARNI?: No-Document Contraindications Reason(s) not discharged on ARNI: Other - Medications per cardiology d) Discharged on evidence-based Beta nando(carvedilol, sustained release metoprolol succinate, or bisoprolol)?: Yes e) For LVEF <35%, discharged on Aldosterone antagonist?: N/A (LVEF > or = 35%) 3. Anticoagulant therapy for permanect/persistent/paraoxysmal Afib or Aflutter: N/A Follow-up Appointment scheduled within 7 days?: Yes
== END 2019-03-22 15:31 | disposition home or self-care (01) ==
LOC: ER 05:15 → INTOOBSV 08:12 → EH 08:12 → 4W 11:45 → 5 14:08
PROVIDERS: ADMIT Internal Medicine; ATTEND Internal Medicine
DX: I13.0 Hypertensive heart and chronic kidney disease with heart failure and stage 1 through stage 4 chronic kidney disease, or unspecified chronic kidney disease (principal); I50.33 Acute on chronic diastolic (congestive) heart failure; J96.01 Acute respiratory failure with hypoxia; N17.9 Acute kidney failure, unspecified; N18.9 Chronic kidney disease, unspecified; G47.33 Obstructive sleep apnea (adult) (pediatric); E66.9 Obesity, unspecified; I47.2 Ventricular tachycardia; I49.3 Ventricular premature depolarization; J44.9 Chronic obstructive pulmonary disease, unspecified; Z79.82 Long term (current) use of aspirin; Z79.899 Other long term (current) drug therapy; Z87.891 Personal history of nicotine dependence; Z68.35 Body mass index [BMI] 35.0-35.9, adult; Z86.79 Personal history of other diseases of the circulatory system
CPT/HCPCS: 93005 ×2; 99285; 36415 ×2; 82553; 82550; 83605; 83735; 85025; 85027; 80048; 80053; 81001; 84484; 83036; 80061; 83880; 71045; 93010; 94660; 94640; 94762 ×2; G0378 ×3; A9270 ×8; J1940 ×2; J3490

== ENCOUNTER 2019-04-01 12:20 | Emergency (ER) | payer MEDICARE, OTHER ==
--- NOTE | 2019-04-01 13:43 | ER Document Report ---
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 Patient states that he had a recent test on Monday at which showed his heart functioning at 30%. Patient is uncertain what specific tests he had performed. Patient denies any symptoms at this time. Patient no longer hypotensive at this time. Patient denies any chest pain dyspnea nausea or vomiting. Patient does report a history of hypertension as well as CHF. Patient did take his blood pressure medication this morning. I have greeted and performed a rapid initial assessment of this patient. A comprehensive ED assessment and evaluation of the patient, analysis of test results and completion of the medical decision making process will be conducted by additional ED providers. TRAVEL OUTSIDE OF THE [place] IN LAST 30 DAYS: No - Related Data Allergies/Adverse Reactions: No Known Allergies Allergy (Unverified 02/01/19 13:14) Past Medical History - Social History Frequency of alcohol use: None Drug Abuse: None - Past Medical History Cardiac Medical History: Reports: Hx Congestive Heart Failure, Hx Hypertension Denies: Hx Heart Attack Renal/ Medical History: Reports: Hx Benign Prostatic Hyperplasia. Denies: Hx Peritoneal Dialysis Psychiatric Medical History: Denies: Hx Depression Physical Exam - Vital signs Vitals: Temp Resp BP 98.8 F 16 153/57 H 04/01/19 13:06 04/01/19 13:06 04/01/19 13:06 - General General appearance: Appears well, Alert In distress: None - Cardiovascular Rhythm: Regular Heart sounds: S1 appreciated, S2 appreciated Course - Vital Signs Vital signs: Temp Pulse Resp BP Pulse Ox 98.8 F 16 153/57 H 04/01/19 13:06 04/01/19 13:06 04/01/19 13:06
[2019-04-01 14:48] LABS: ALBUMIN 4.1 g/dL (3.5-5.0); ALKALINE PHOSPHATASE 94 U/L (38-126); ANION GAP 12 (5-19); ASPARTATE AMINO TRANSFERASE 27 U/L (17-59); BILIRUBIN,DIRECT 0.2 mg/dL (0.0-0.4); BILIRUBIN,TOTAL 0.7 mg/dL (0.2-1.3); BLOOD UREA NITROGEN 36 mg/dL (7-20); CALCIUM 9.3 mg/dL (8.4-10.2); CARBON DIOXIDE 27 mmol/L (22-30); CHLORIDE 99 mmol/L (98-107); GLUCOSE 101 mg/dL (75-110); POTASSIUM 5.1 mmol/L (3.6-5.0); TOTAL PROTEIN 7.3 g/dL (6.3-8.2)
[2019-04-01 14:56] LABS: TROPONIN I 0.03 ng/mL
--- NOTE | 2019-04-01 15:09 | RADIOLOGY REPORT (SQ) ---
EXAM DESCRIPTION: CHEST 2 VIEWS COMPLETED DATE/TIME: 04/01/2019 2:58 pm REASON FOR STUDY: low bp COMPARISON: 03/21/2019 EXAM PARAMETERS: NUMBER OF VIEWS: two views TECHNIQUE: Digital Frontal and Lateral radiographic views of the chest acquired. RADIATION DOSE: NA LIMITATIONS: none FINDINGS: LUNGS AND PLEURA: No opacities, masses or pneumothorax. No pleural effusion. MEDIASTINUM AND HILAR STRUCTURES: No masses or contour abnormalities. HEART AND VASCULAR STRUCTURES: Heart normal size. No evidence for failure. BONES: No acute findings. HARDWARE: None in the chest. OTHER: No other significant finding. IMPRESSION: NO ACUTE RADIOGRAPHIC FINDING IN THE CHEST. TECHNICAL DOCUMENTATION: JOB ID: [id number] [employer]- All Rights Reserved Reading location - IP/workstation name: [email or web address]
[2019-04-01 15:48] LABS: ABSOLUTE EOSINOPHILS # (AUTO) 0.2 10^3/uL (0.0-0.6); ABSOLUTE LYMPHOCYTES (AUTO) 1.4 10^3/uL (0.5-4.7); ABSOLUTE MONOCYTES (AUTO) 0.9 10^3/uL (0.1-1.4); ABSOLUTE NEUT (AUTO) 5.6 10^3/uL (1.7-8.2); BASOPHILS % (AUTO) 0.5 % (0-2); HEMATOCRIT 45.9 % (37.9-51.0); HEMOGLOBIN 15.5 g/dL (13.5-17.0); LYMPHOCYTES % (AUTO) 16.9 % (13-45); MEAN CORPUSCULAR HEMOGLOBIN 31.7 pg (27.0-33.4); MEAN CORPUSCULAR HGB CONC 33.8 g/dL (32.0-36.0); MEAN CORPUSCULAR VOLUME 94 fl (80-97); MONOCYTES % (AUTO) 10.7 % (3-13); PLATELET COUNT 197 10^3/uL (150-450); RED BLOOD COUNT 4.89 10^6/uL (4.35-5.55); RED CELL DISTRIBUTION WIDTH 13.9 % (11.5-14.0); SEGMENTED NEUTROPHILS % (AUTO) 68.9 % (42-78); TOTAL CELLS COUNTED % (AUTO) 100 %; WHITE BLOOD COUNT 8.2 10^3/uL (4.0-10.5)
--- NOTE | 2019-04-01 18:15 | EKG REPORT ---
SEVERITY:- ABNORMAL ECG - SINUS RHYTHM LEFT ATRIAL ABNORMALITY BORDERLINE LEFT AXIS DEVIATION CONSIDER ANTEROSEPTAL INFARCT NONSPECIFIC T ABNORMALITIES, LATERAL LEADS BORDERLINE PROLONGED QT INTERVAL : Confirmed by: Grady Dejesus MD 01-Apr-2019 18:03:37
--- NOTE | 2019-04-01 18:16 | ER Document Report ---
ED General - General Chief Complaint: Abnormal Lab Results Stated Complaint: WEAKNESS Time Seen by Provider: 04/01/19 13:37 Primary Care Provider: JASON DIAZ MD [ACTIVE STAFF] - Follow up as needed Mode of Arrival: Wheelchair TRAVEL OUTSIDE OF THE [place] IN LAST 30 DAYS: No - HPI Onset: This morning Onset/Duration: Gradual Severity: Moderate Pain Level: Denies Context: 69 year old male arrives from the cardiologists office with complaints of a low heart rate reportedly over at the office. He was being seen as a follow up from a recent hospitalization for low heart rate. He tells me he feels well. No chest pain and no sob. No fever. He has a known cardiomyopathy ef about 35 % and renal insuf and htn. He has no recent illness. Heart rate 80's here. Exacerbated by: Denies Relieved by: Denies - Related Data Allergies/Adverse Reactions: No Known Allergies Allergy (Unverified 02/01/19 13:14) Past Medical History - General Information source: Patient - Social History Smoking Status: Former Smoker Frequency of alcohol use: None Drug Abuse: None Family History: DM, Hypertension Patient has suicidal ideation: No Patient has homicidal ideation: No - Past Medical History Cardiac Medical History: Reports: Hx Congestive Heart Failure, Hx Hypertension Denies: Hx Heart Attack Renal/ Medical History: Reports: Hx Benign Prostatic Hyperplasia. Denies: Hx Peritoneal Dialysis Psychiatric Medical History: Denies: Hx Depression - Immunizations Hx Pneumococcal Vaccination: 12/23/18 Review of Systems - Review of Systems Constitutional: No symptoms reported EENT: No symptoms reported Cardiovascular: See HPI Respiratory: No symptoms reported Gastrointestinal: No symptoms reported Genitourinary: No symptoms reported Male Genitourinary: No symptoms reported Musculoskeletal: No symptoms reported Skin: No symptoms reported Hematologic/Lymphatic: No symptoms reported Neurological/Psychological: No symptoms reported Physical Exam - Vital signs Vitals: Temp Resp BP 98.8 F 16 153/57 H 04/01/19 13:06 04/01/19 13:06 04/01/19 13:06 Interpretation: Normal - General General appearance: Appears well, Alert - HEENT Head: Normocephalic, Atraumatic Eyes: Normal Pupils: PERRL - Respiratory Respiratory status: No respiratory distress Chest status: Nontender Breath sounds: Normal Chest palpation: Normal - Cardiovascular Rhythm: Regular Heart sounds: Normal auscultation Murmur: No - Abdominal Inspection: Normal Distension: No distension Bowel sounds: Normal Tenderness: Nontender Organomegaly: No organomegaly - Back Back: Normal, Nontender - Extremities General upper extremity: Normal inspection, Nontender, Normal color, Normal ROM, Normal temperature General lower extremity: Normal inspection, Nontender, Normal color, Normal ROM, Normal temperature, Normal weight bearing. No: Akanksha's sign - Neurological Neuro grossly intact: Yes Cognition: Normal Orientation: AAOx4 Romance Coma Scale Eye Opening: Spontaneous Romance Coma Scale Verbal: Oriented Rossana Coma Scale Motor: Obeys Commands Romance Coma Scale Total: 15 Speech: Normal Motor strength normal: LUE, RUE, LLE, RLE Sensory: Normal - Psychological Associated symptoms: Normal affect, Normal mood - Skin Skin Temperature: Warm Skin Moisture: Dry Skin Color: Normal Course - Re-evaluation Re-evalutation: 04/01/19 18:14 MDM 69 year old male with known cardiomyopathy has multiple comorbidities and is here after being sent from Dr. Quinones's office. 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 No h/o that. Reading on computer was a fib which is not correct. There was a fair amount of aberancy and he actually tells me today that he feels "well." He has no dizziness and certainly no chest pain or sob. I have called and discussed the pt with Dr. Quinones. He states his office will see him tomorrow am at about 10 am and help decide if life vest is appropriate. I have discussed with the pt staying here and he is upset and wants to leave. "Worst hospital there is" he tells me. Tells me we need more doctors here. In any event he feels well. LE edema is absent - which was present 2 weeks ago, and he has close follow up. I will discharge him, since he refuses to stay and have him follow with his fruit buyer in the am tomorrow. - Vital Signs Vital signs: Temp Pulse Resp BP Pulse Ox 98.8 F 16 153/57 H 04/01/19 13:06 04/01/19 13:06 04/01/19 13:06 - Laboratory Result Diagrams: 04/01/19 15:30 04/01/19 13:55 Laboratory results interpreted by me: 04/01/19 04/01/19 13:55 13:55 Potassium 5.1 H BUN 36 H Creatinine 1.71 H Est GFR ( Amer) 48 L Est GFR (MDRD) Non-Af 40 L NT-Pro-B Natriuret Pep 2160 H - Diagnostic Test Radiology reviewed: Image reviewed, Reports reviewed - EKG Interpretation by Me EKG shows normal: Sinus rhythm - NSR Nl [place] [address] elevation or depression my interpretation Rate: Normal Discharge - Discharge Clinical Impression: Cardiomyopathy Qualifiers: Cardiomyopathy type: unspecified Qualified Code(s): I42.9 - Cardiomyopathy, unspecified Condition: Fair Disposition: HOME, SELF-CARE Admitting Provider: family Instructions: Congestive Heart Failure ([facility]) Additional Instructions: See Dr. Diaz in follow up. Go to his office in the morning at 10:00. Please return here sooner for chest pain or shortness of breath or dizziness or other concerns. Forms: Elevated Blood Pressure Referrals: JASON DIAZ MD [ACTIVE STAFF] - Follow up as needed
[2019-04-01 18:41] VITALS: BP 160/78
== END 2019-04-01 18:45 | disposition home or self-care (01) ==
LOC: ER 12:20
DX: I42.9 Cardiomyopathy, unspecified (principal); R00.1 Bradycardia, unspecified; N28.9 Disorder of kidney and ureter, unspecified; I11.0 Hypertensive heart disease with heart failure; I50.9 Heart failure, unspecified; Z87.891 Personal history of nicotine dependence
CPT/HCPCS: 36415; 71046; 80053; 83880; 84484; 85025; 93005; 93010; 99285

== ENCOUNTER 2019-08-13 11:05 | Emergency (ER) | payer OTHER, MEDICARE ==
[2019-08-13 12:05] VITALS: BP 137/99
[2019-08-13] MEDS ORDERED: KETOROLAC TROMETHAMINE INJ/PF 30 MG/1 ML SDV IM ONE (12:34)
--- NOTE | 2019-08-13 12:37 | ER Document Report ---
HPI - HPI Time Seen by Provider: 08/13/19 12:29 Pain Level: 4 Context: Patient is a 69-year-old male who presents emergency department with a chief complaint of right knee pain. Patient reports 2 days ago waking up with right knee pain. Patient reports this is right on the kneecap. Patient denies injury or fall. Patient is walking with a cane as he feels like he cannot apply full pressure to the right leg due to the significant right knee pain. Patient states he is never had surgery to his right knee. Patient has not taken anything for his discomfort. - REPRODUCTIVE Reproductive: DENIES: : Past Medical History - General Information source: Patient - Social History Smoking Status: Former Smoker Chew tobacco use (# tins/day): No Frequency of alcohol use: None Drug Abuse: None Lives with: Family Family History: DM, Hypertension Patient has suicidal ideation: No Patient has homicidal ideation: No - Past Medical History Cardiac Medical History: Reports: Hx Congestive Heart Failure, Hx Coronary Artery Disease, Hx Hypertension - IN RIGHT ARM, NOT LEFT Denies: Hx Heart Attack - IRREGULAR HEART RATE Pulmonary Medical History: Reports: None Denies: Hx Asthma, Hx Bronchitis, Hx COPD, Hx Pneumonia EENT Medical History: Reports: None Neurological Medical History: Reports: None. Denies: Hx Cerebrovascular Accident, Hx Seizures Endocrine Medical History: Reports: None Renal/ Medical History: Reports: Hx Benign Prostatic Hyperplasia. Denies: Hx Peritoneal Dialysis Malignancy Medical History: Reports None GI Medical History: Reports: None Musculoskeletal Medical History: Reports None, Denies Hx Arthritis Skin Medical History: Reports None Psychiatric Medical History: Reports: None Denies: Hx Depression Traumatic Medical History: Reports: None Infectious Medical History: Reports: None Surgical Hx: Negative - Immunizations Hx Pneumococcal Vaccination: 12/23/18 Vertical Provider Document - CONSTITUTIONAL Agree With Documented VS: Yes General Appearance: No Apparent Distress - INFECTION CONTROL TRAVEL OUTSIDE OF THE [place] IN LAST 30 DAYS: No - HEENT HEENT: Atraumatic, Normal ENT Exam, Normocephalic, PERRLA - NECK Neck: Normal Inspection - RESPIRATORY Respiratory: Breath Sounds Normal, No Respiratory Distress - CARDIOVASCULAR Cardiovascular: Regular Rate, Regular Rhythm - GI/ABDOMEN Gastrointestinal: Abdomen Soft, Abdomen Non-Tender, Normal Bowel Sounds - MUSCULOSKELETAL/EXTREMETIES Notes: Patient has point tenderness to the medial patella. There is no ecchymosis or edema. No tenderness noted to the medial, lateral or posterior aspect of the knee. There is no open wound. When comparing the right knee to the left knee there is no edema. The right anterior knee is slightly warmer than the left but without erythema. Patient has a palpable +2 popliteal pulse. Patient is able to flex and extend the right knee. - NEURO Level of Consciousness: Awake, Alert, Appropriate Deep Tendon Reflexes: 2+ - DERM Integumentary: Warm, Dry, No Rash Course - Re-evaluation Re-evalutation: 08/13/19 15:45 I did reevaluate the right and left knee. Both were warm to touch. No significant erythema or edema noted to the right knee. Patient was given diagnosis of right knee effusion. Instructed to take anti-inflammatories, rest, ice and elevate over the next few days. I did give him anti-inflammatory precautions as this can cause gastric upset and bleeding. Patient denies a history of gastric ulcers. Patient to follow-up with his primary care physician or orthopedics. I did inform the patient to return immediately if he is unable to move his right knee at the joint and it becomes very stiff, redness, or any worsening pain. - Vital Signs Vital signs: Temp Pulse Resp BP Pulse Ox 98.6 F 94 18 137/99 H 95 08/13/19 12:00 08/13/19 12:00 08/13/19 12:00 08/13/19 12:00 08/13/19 12:00 - Diagnostic Test Radiology reviewed: Reports reviewed Radiology results interpreted by me: 08/13/19 15:09 Knee X-Ray 08/13/19 12:34 IMPRESSION: Small suprapatellar knee joint effusion. No acute fracture or malalignment Discharge - Discharge Clinical Impression: Effusion, right knee Condition: Stable Disposition: HOME, SELF-CARE Additional Instructions: *Today was seen in the emergency department for right knee pain. We did obtain an x-ray which did not show any acute bony abnormality but does show a knee effusion. A new infusion is a fluid collection in the knee joint. It was noted to be very small. This can cause pain. If not too large can be managed conservatively with rest, ice packs and anti-inflammatory medications such as ibuprofen, Aleve, Advil. You do have to take caution when taking anti- inflammatories as it can cause gastric bleeding and gastric upset. Please follow-up with your primary care physician or orthopedics if you continue to have pain. Sometimes knee effusions can become larger and require joint aspiration. Please seek medical attention if you are unable to move your right knee at the joint and become stiff, develop significant redness around the knee or redness that streaks up or down the leg, fever or any new or worsening symptoms. Knee Effusion You have a fluid collection in the knee joint, called an effusion. This fluid build up can occur from irritation of the synovial membrane lining the knee joint or from a more serious injury to the knee. Irritation of the membrane can occur from excessive, repetitive knee activitiy, like kneeling or squatting for extended periods or even just excessive walking, jogging, or skiing. Effusions also can occur with infections in the joint and with some arthritic conditions, especially gout. Fluid collections in these situations are usually yellow in color and either clear or cloudy in appearance. Significant injury to the knee can result in fluid collection which is partly or entirely blood and this condition is known as a hemarthrosis of the knee joint. If the fluid collection is not too large and/or painful, it can be managed conservatively with rest, ice packs, and anti-inflammatory and pain medications as needed. If the fluid collection is large and very painful, the knee joint can be drained (aspirated) by a relatively minor procedure of inserting a needle in the joint and removing some or all of the fluid present. If your knee was aspirated, you should rest it as much as possible for a few days, keep a pressure dressing around the knee and apply ice packs for at least 48 - 72 hours. If there are signs of developing infection such as heat and redness of the knee, fever, etc. you should return immediately for a recheck. Referrals: [facility] [Primary Care Provider] - Follow up as needed
--- NOTE | 2019-08-13 15:03 | RADIOLOGY REPORT (SQ) ---
EXAM DESCRIPTION: KNEE RIGHT 4 VIEWS COMPLETED DATE/TIME: 08/13/2019 2:11 pm REASON FOR STUDY: right knee pain x 2 days COMPARISON: None. NUMBER OF VIEWS: Four views. TECHNIQUE: AP, lateral, and both oblique radiographic images acquired of the right knee. LIMITATIONS: None. FINDINGS: MINERALIZATION: Normal. BONES: No acute fracture or dislocation. No worrisome bone lesions. JOINT: Small suprapatellar knee joint effusion SOFT TISSUES: No soft tissue swelling. No radio-opaque foreign body. OTHER: No other significant finding. IMPRESSION: Small suprapatellar knee joint effusion. No acute fracture or malalignment TECHNICAL DOCUMENTATION: JOB ID: [id number] 2010 [employer]- All Rights Reserved Reading location - IP/workstation name: [email or web address]
== END 2019-08-13 15:45 | disposition home or self-care (01) ==
LOC: ER 11:05
DX: M25.461 Effusion, right knee (principal); M25.561 Pain in right knee; I50.9 Heart failure, unspecified; I25.10 Atherosclerotic heart disease of native coronary artery without angina pectoris
CPT/HCPCS: 99283; 96372; 73564; J1885

== ENCOUNTER 2019-09-21 02:03 | Inpatient (IN) | payer OTHER, MEDICARE ==
[2019-09-21 02:54] LABS: ABSOLUTE EOSINOPHILS # (AUTO) 0.2 10^3/uL (0.0-0.6); ABSOLUTE MONOCYTES (AUTO) 0.5 10^3/uL (0.1-1.4); HEMOGLOBIN 14.7 g/dL (13.5-17.0); TOTAL CELLS COUNTED % (AUTO) 100 %
--- NOTE | 2019-09-21 03:01 | ER Document Report ---
Entered by OSMANY AVELAR SCRIBE 09/21/19 0214 Acting as scribe for:MIL TRISTAN IV, MD ED Respiratory Problem - General Chief Complaint: Shortness Of Breath Stated Complaint: DIFFICULTY BREATHING Primary Care Provider: GINA CASTELLANOS PA-C [Primary Care Provider] - Follow up as needed Mode of Arrival: Medic Information source: Patient, Emergency Med Personnel Notes: This 69 year old male patient with a history of CHF exacerbation brought in by EMS presents to the ED today with complaints of dyspnea and shortness of breath that began x1 hour prior to arrival. EMS reports that the patient was laying flat in bed when his symptoms came on suddenly. EMS reports that the patient was initially 89% on RA, had rales, increased work of breathing, BP 159/110, BGL 129, and tachycardic at 115 bpm; once the patient was placed on CPAP, his respiratory symptoms improved and his blood pressure decreased to 130/80. EMS states that they initiated a Nitro drip and stopped upon ED arrival. According to EMS, the patient only takes Lasix, has no known drug allergies, and has a doctor's appointment in x4 days. TRAVEL OUTSIDE OF THE [place] IN LAST 30 DAYS: No - Related Data Allergies/Adverse Reactions: No Known Allergies Allergy (Verified 09/21/19 02:12) Past Medical History - General Information source: Patient, Emergency Med Personnel, [facility] Records - Social History Smoking Status: Current Every Day Smoker Cigarette use (# per day): Yes - 1 pack per week Chew tobacco use (# tins/day): No Smoking Education Provided: No Frequency of alcohol use: None Drug Abuse: None Lives with: Family Family History: Reviewed & Not Pertinent, DM, Hypertension Patient has suicidal ideation: No Patient has homicidal ideation: No - Past Medical History Cardiac Medical History: Reports: Hx Congestive Heart Failure, Hx Coronary Artery Disease, Hx Hypertension - IN RIGHT ARM, NOT LEFT Renal/ Medical History: Reports: Hx Benign Prostatic Hyperplasia - Immunizations Hx Pneumococcal Vaccination: 12/23/18 Physical Exam - Vital signs Vitals: Temp Pulse Resp BP Pulse Ox 98 F 107 H 22 H 150/99 H 100 09/21/19 02:12 09/21/19 02:12 09/21/19 02:12 09/21/19 02:12 09/21/19 02:12 Interpretation: Normal - General General appearance: Alert - HEENT Head: Normocephalic, Atraumatic Eyes: Normal Pupils: PERRL - Respiratory Respiratory status: Other - on CPAP Chest status: Nontender Breath sounds: Decreased air movement - Diminished breath sounds in all lung kumar Chest palpation: Normal - Cardiovascular Rhythm: Regular Heart sounds: Normal auscultation Murmur: No Friction rub: No Gallop: None auscultated - Abdominal Inspection: Normal Distension: Distended Bowel sounds: Normal Tenderness: Nontender - Abdomen soft Organomegaly: No organomegaly - Back Back: Normal, Nontender - Extremities General upper extremity: Normal inspection General lower extremity: Edema - 2+ pitting edema to lower extremities bilaterally - Neurological Neuro grossly intact: Yes - Psychological Associated symptoms: Normal affect, Normal mood - Skin Skin Temperature: Warm Skin Moisture: Dry Skin Color: Normal Course - Vital Signs Vital signs: Temp Pulse Resp BP Pulse Ox 98 F 107 H 20 133/77 H 96 09/21/19 02:12 09/21/19 02:12 09/21/19 04:37 09/21/19 03:02 09/21/19 04:37 - Laboratory Result Diagrams: 09/21/19 02:38 09/21/19 02:38 Laboratory results interpreted by me: 09/21/19 09/21/19 02:38 02:38 BUN 33 H Creatinine 1.41 H Est GFR (MDRD) Non-Af 50 L Glucose 129 H NT-Pro-B Natriuret Pep 4000 H - Diagnostic Test Radiology reviewed: Reports reviewed - EKG Interpretation by Me Additional EKG results interpreted by me: 09/21/19 05:04 EKG obtained on 09/21/2019 at 0223 hrs. was interpreted by this MD. Findings: Si nus tachycardia, rate 107, ventricular ectopy is present, there are no obvious patterns of ST elevation or depression to suggest acute myocardial ischemia or infarction. - Consults dr. stewart Time consulted: 03:43 - Given the patient had no chest pain, abdominal pain, nausea, back pain or other symptoms besides shortness of breath, Dr. Stewart feels comfortable that this patient can be admitted here and treated as a CHF is exacerbation despite his elevated troponin Reason for consultation: 09/21/19 05:05 chf exacerbation, elevated troponin Dr. Dallas Cao Time consulted: 05:03 - Dr. Cao accept patient for admission. Reason for consultation: 09/21/19 05:07 CHF exacerbation Discharge - Discharge Clinical Impression: CHF (congestive heart failure) Qualifiers: Heart failure type: unspecified Heart failure chronicity: acute Qualified Code(s): I50.9 - Heart failure, unspecified Condition: Good Disposition: ADMITTED INPATIENT Admitting Provider: Nash (Hospitalist) Unit Admitted: Telemetry Referrals: GINA CASTELLANOS PA-C [Primary Care Provider] - Follow up as needed I personally performed the services described in the documentation, reviewed and edited the documentation which was dictated to the scribe in my presence, and it accurately records my words and actions.
[2019-09-21 03:03] LABS: ABSOLUTE LYMPHOCYTES (AUTO) 0.9 10^3/uL (0.5-4.7); ABSOLUTE NEUT (AUTO) 4.2 10^3/uL (1.7-8.2); BASOPHILS % (AUTO) 0.8 % (0-2); HEMATOCRIT 42.6 % (37.9-51.0); LYMPHOCYTES % (AUTO) 15.9 % (13-45); MEAN CORPUSCULAR HEMOGLOBIN 32.3 pg (27.0-33.4); MEAN CORPUSCULAR HGB CONC 34.5 g/dL (32.0-36.0); MEAN CORPUSCULAR VOLUME 94 fl (80-97); MONOCYTES % (AUTO) 8.4 % (3-13); PLATELET COUNT 199 10^3/uL (150-450); RED BLOOD COUNT 4.55 10^6/uL (4.35-5.55); RED CELL DISTRIBUTION WIDTH 13.3 % (11.5-14.0); SEGMENTED NEUTROPHILS % (AUTO) 71.9 % (42-78); WHITE BLOOD COUNT 5.8 10^3/uL (4.0-10.5)
[2019-09-21 03:22] LABS: ALBUMIN 3.8 g/dL (3.5-5.0); ALKALINE PHOSPHATASE 98 U/L (38-126); ANION GAP 8 (5-19); ASPARTATE AMINO TRANSFERASE 23 U/L (17-59); BILIRUBIN,TOTAL 0.4 mg/dL (0.2-1.3); BLOOD UREA NITROGEN 33 mg/dL (7-20); CALCIUM 9.2 mg/dL (8.4-10.2); CARBON DIOXIDE 26 mmol/L (22-30); CHLORIDE 105 mmol/L (98-107); GLUCOSE 129 mg/dL (75-110); POTASSIUM 4.7 mmol/L (3.6-5.0); TOTAL PROTEIN 6.7 g/dL (6.3-8.2)
[2019-09-21 03:32] LABS: TROPONIN I 0.15 ng/mL
--- NOTE | 2019-09-21 04:39 | RADIOLOGY REPORT (SQ) ---
Chest one view on 09/21/2019 at 3:51 AM CLINICAL INDICATION: Shortness of breath COMPARISON: 04/01/2019 FINDINGS: The lungs are clear. Cardiac, hilar and mediastinal contours are within normal limits. Pulmonary vascularity is within normal limits. No bony abnormality is noted. IMPRESSION: No active disease.
[2019-09-21] MEDS ORDERED: FUROSEMIDE INJ/PF 20 MG/2 ML SDV IV ONE (04:57)
[2019-09-21] MEDS ORDERED: MAG HYDROX/AL HYDROX/SIMETH SUSP 30 ML UDCUP PO PRN (05:06)
[2019-09-21] MEDS ORDERED: ACETAMINOPHEN 325 MG TABLET PO PRN (05:06)
[2019-09-21] MEDS ORDERED: ASPIRIN 325 MG TABLET, ENT COATED PO ONE (05:30)
[2019-09-21] MEDS ORDERED: LISINOPRIL 5 MG TABLET PO ONE (05:30)
[2019-09-21] MEDS: HEPARIN SOD (PORCINE) 5,000 UNIT/ML 1 ML VIAL SUBCUT SCH ×3 (05:54→21:21)
--- NOTE | 2019-09-21 05:55 | PDOC H&P ---
History of Present Illness Admission Date/PCP: 09/21/19 05:19 GINA CASTELLANOS PA-C Patient complains of: Shortness of breath History of Present Illness: INES TURNER JR is a 69 year old male with a past medical history of CKD 3, diastolic heart failure, systolic heart failure with ejection fraction of 35%, subclavian steal syndrome, obesity and remote tobacco. He presents with 24 hours of shortness of breath and nonproductive cough developing a cough with cl ear sputum over the last 6 hours. Symptoms clearly worse with lying flat, some lower extremity edema but no chest pain nausea or vomiting. Patient called EMS who reports pulse oximetry of 89% on room air with crackles and rales, tachycardia at 115 and a systolic blood pressure of 160/110. He started on CPAP and brought to the emergency room additional findings include acute renal failure, elevated troponin but unremarkable EKG. Patient reports scheduled outpatient cardiac catheterization scheduled September 25, 2019 at [facility]. Past Medical History Cardiac Medical History: Reports: Congestive Heart Failure, Coronary Artery Dis ease, Hypertension - IN RIGHT ARM, NOT LEFT Denies: Myocardial Infarction - IRREGULAR HEART RATE Pulmonary Medical History: Denies: Asthma, Bronchitis, Chronic Obstructive Pulmonary Disease (COPD), Pneumonia Neurological Medical History: Denies: Seizures Endocrine Medical History: Reports: Obesity Musculoskeltal Medical History: Denies: Arthritis Psychiatric Medical History: Denies: Depression Hematology: Denies: Anemia Past Surgical History Past Surgical History: Reports: None Social History Information Source: Patient, [facility] Records Lives with: Family Smoking Status: Former Smoker Electronic Cigarette use?: No Frequency of Alcohol Use: None Hx Recreational Drug Use: No Drugs: None Hx Prescription Drug Abuse: No - Advance Directive Resuscitation Status: Full Code Family History Family History: DM, Hypertension Parental Family History Reviewed: Yes Children Family History Reviewed: Yes Sibling(s) Family History Reviewed.: Yes Medication/Allergy Home Medications: Furosemide [Lasix 20 mg Tablet] 20 mg PO DAILY 09/21/19 Allergies/Adverse Reactions: No Known Allergies Allergy (Verified 09/21/19 02:12) Review of Systems Constitutional: ABSENT: chills, fever(s), headache(s), weight gain, weight loss Eyes: ABSENT: visual disturbances Ears: ABSENT: hearing changes Cardiovascular: PRESENT: as per HPI, edema, orthropnea. ABSENT: chest pain, dyspnea on exertion, palpitations Respiratory: ABSENT: cough, hemoptysis Gastrointestinal: ABSENT: abdominal pain, constipation, diarrhea, hematemesis, hematochezia, nausea, vomiting Genitourinary: ABSENT: dysuria, hematuria Musculoskeletal: ABSENT: joint swelling Integumentary: ABSENT: rash, wounds Neurological: ABSENT: abnormal gait, abnormal speech, confusion, dizziness, focal weakness, syncope Psychiatric: ABSENT: anxiety, depression, homidical ideation, suicidal ideation Endocrine: ABSENT: cold intolerance, heat intolerance, polydipsia, polyuria Hematologic/Lymphatic: ABSENT: easy bleeding, easy bruising Physical Exam Vital Signs: Temp Pulse Resp BP Pulse Ox 98 F 107 H 18 113/64 98 09/21/19 02:12 09/21/19 02:12 09/21/19 05:01 09/21/19 05:00 09/21/19 05:01 Intake & Output 09/19/19 09/20/19 09/21/19 11:59 11:59 11:59 Weight 109.316 kg General appearance: PRESENT: cooperative, disheveled, morbidly obese, well-deve loped, well-nourished Head exam: PRESENT: atraumatic, normocephalic Eye exam: PRESENT: conjunctiva pink, EOMI, PERRLA. ABSENT: scleral icterus Ear exam: PRESENT: normal external ear exam Mouth exam: PRESENT: moist, tongue midline Neck exam: ABSENT: carotid bruit, JVD, lymphadenopathy, thyromegaly Respiratory exam: PRESENT: clear to auscultation kevyn, crackles, symmetrical, tachypnea. ABSENT: rales, rhonchi, wheezes Cardiovascular exam: PRESENT: RRR. ABSENT: diastolic murmur, rubs, systolic murmur Pulses: PRESENT: normal dorsalis pedis pul Vascular exam: PRESENT: normal capillary refill GI/Abdominal exam: PRESENT: normal bowel sounds, soft. ABSENT: distended, guarding, mass, organolmegaly, rebound, tenderness Rectal exam: PRESENT: deferred Extremities exam: PRESENT: full ROM. ABSENT: calf tenderness, clubbing, pedal edema Neurological exam: PRESENT: alert, awake, oriented to person, oriented to place, oriented to time, oriented to situation, CN II-XII grossly intact. ABSENT: motor sensory deficit Psychiatric exam: PRESENT: appropriate affect, normal mood. ABSENT: homicidal ideation, suicidal ideation Skin exam: PRESENT: dry, intact, warm. ABSENT: cyanosis, rash Results Laboratory Results: 09/21/19 02:38 09/21/19 02:38 09/21/19 09/21/19 02:38 02:38 WBC 5.8 RBC 4.55 Hgb 14.7 Hct 42.6 MCV 94 MCH 32.3 MCHC 34.5 RDW 13.3 Plt Count 199 Seg Neutrophils % 71.9 Sodium 138.6 Potassium 4.7 Chloride 105 Carbon Dioxide 26 Anion Gap 8 BUN 33 H Creatinine 1.41 H Est GFR ( Amer) > 60 Glucose 129 H Calcium 9.2 Total Bilirubin 0.4 AST 23 Alkaline Phosphatase 98 Total Protein 6.7 Albumin 3.8 09/21/19 02:38 Troponin I 0.150 NT-Pro-B Natriuret Pep 4000 H Impressions: Chest X-Ray 09/21/19 03:21 IMPRESSION: No active disease. Assessment and Plan - Diagnosis (1) CHF (congestive heart failure) Qualifiers: Heart failure type: unspecified Heart failure chronicity: acute Qualified Code(s): I50.9 - Heart failure, unspecified Is this a current diagnosis for this admission?: Yes Plan: CHF care set, optimize volume and pressure. Education. Follow-up cardiac enzymes, anticipate outpatient cardiac catheterization as scheduled September 24. (2) Stage III chronic kidney disease Is this a current diagnosis for this admission?: Yes Plan: Avoid nephrotoxic meds and doses, follow-up chemistry (3) Chronic left shoulder pain Is this a current diagnosis for this admission?: Yes Plan: Previously recorded, known subclavian steal syndrome. Follow-up cardiac enzymes - Time Time Spent with patient: 25-34 minutes - Inpatient Certification Medical Necessity: Need Close Monitoring Due to Risk of Patient Decompensation
--- NOTE | 2019-09-21 09:59 | EKG REPORT ---
SEVERITY:- ABNORMAL ECG - SINUS TACHYCARDIA VENTRICULAR TRIGEMINY PROBABLE LEFT ATRIAL ABNORMALITY BORDERLINE LEFT AXIS DEVIATION BORDERLINE PROLONGED QT INTERVAL OLD ANTEROSEPTAL AK : Confirmed by: Grady Dejesus MD 21-Sep-2019 09:58:24
[2019-09-21] MEDS ORDERED: FUROSEMIDE INJ/PF 40 MG/4 ML SDV IV SCH (10:00)
[2019-09-21] MEDS ORDERED: DOCUSATE SODIUM 100 MG CAPSULE PO SCH (10:00)
[2019-09-21] MEDS: POTASSIUM CHLORIDE 10 MEQ TABLET.ER PO SCH ×2 (11:30→21:20)
--- NOTE | 2019-09-21 18:47 | PDOC PROGRESS REPORT ---
Subjective Progress Note for:: 09/21/19 Subjective:: INES TURNER JR is a 69 year old male with a past medical history of CKD 3, diastolic heart failure, systolic heart failure with ejection fraction of 35%, subclavian steal syndrome, obesity and remote tobacco who was admitted 09/21/19 for acute systolic CHF exacerbation. Patient was seen on morning rounds. He was found sitting up to the edge of the bed, comfortably, on room air. He reports that he is feeling significantly better this morning. He reports that his symptoms of orthopnea were sudden and severe last ngiht but that he has noted, this morning, that he can lie nearly supine without discomfort. He denies fever, chest pain, palpitations, dyspnea, cough, abdominal pain, nausea and vomiting. He has no questions or concerns at this time. No concerns per nursing. Reason For Visit: CHF Physical Exam Vital Signs: Temp Pulse Resp BP Pulse Ox 98.2 F 96 16 106/56 L 93 09/21/19 08:23 09/21/19 15:38 09/21/19 15:38 09/21/19 15:38 09/21/19 15:38 Intake & Output 09/20/19 09/21/19 09/22/19 06:59 06:59 06:59 Intake Total 942 Output Total 1550 Balance -608 Weight 109.316 kg 109.3 kg General appearance: PRESENT: no acute distress, cooperative, disheveled, obese, well-developed, well-nourished Head exam: PRESENT: atraumatic, normocephalic Eye exam: PRESENT: conjunctiva pink, EOMI, PERRLA. ABSENT: scleral icterus Ear exam: PRESENT: normal external ear exam Mouth exam: PRESENT: moist, tongue midline Neck exam: ABSENT: carotid bruit, JVD, lymphadenopathy, thyromegaly Respiratory exam: PRESENT: clear to auscultation kevyn, symmetrical, unlabored, other - room air. ABSENT: rales, rhonchi, wheezes Cardiovascular exam: PRESENT: RRR, +S1, +S2. ABSENT: diastolic murmur, rubs, systolic murmur Pulses: PRESENT: normal dorsalis pedis pul Vascular exam: PRESENT: normal capillary refill GI/Abdominal exam: PRESENT: normal bowel sounds, soft. ABSENT: distended, guarding, mass, organolmegaly, rebound, tenderness Rectal exam: PRESENT: deferred Extremities exam: PRESENT: full ROM. ABSENT: calf tenderness, clubbing, pedal edema Musculoskeletal exam: PRESENT: ambulatory Neurological exam: PRESENT: alert, awake, oriented to person, oriented to place, oriented to time, oriented to situation, CN II-XII grossly intact. ABSENT: motor sensory deficit Psychiatric exam: PRESENT: appropriate affect, normal mood. ABSENT: homicidal ideation, suicidal ideation Skin exam: PRESENT: dry, intact, warm. ABSENT: cyanosis, rash Results Laboratory Results: 09/21/19 02:38 09/21/19 02:38 09/21/19 09/21/19 09/21/19 02:38 02:38 02:38 WBC 5.8 RBC 4.55 Hgb 14.7 Hct 42.6 MCV 94 MCH 32.3 MCHC 34.5 RDW 13.3 Plt Count 199 Seg Neutrophils % 71.9 Sodium 138.6 Potassium 4.7 Chloride 105 Carbon Dioxide 26 Anion Gap 8 BUN 33 H Creatinine 1.41 H Est GFR ( Amer) > 60 Glucose 129 H Calcium 9.2 Total Bilirubin 0.4 AST 23 Alkaline Phosphatase 98 Total Protein 6.7 Albumin 3.8 TSH 2.37 09/21/19 09/21/19 09/21/19 02:38 10:50 17:07 Troponin I 0.150 0.718 0.626 NT-Pro-B Natriuret Pep 4000 H Impressions: Chest X-Ray 09/21/19 03:21 IMPRESSION: No active disease. Assessment and Plan - Diagnosis (1) Acute on chronic diastolic CHF (congestive heart failure) Is this a current diagnosis for this admission?: Yes Plan: Improved; now maintaining oxygen saturations on room air with clear lung sounds. Orthopnea is resolved. Trended troponins. Patient denies chest discomfort; will no longer follow. 0.150-> 0.718-> 0.626 Patient was admitted to [facility] on continuous cardiac telemetry. He is receiving IV furosemide Continue lisinopril twice daily. He has been placed on supplemental oxygen and BiPAP as needed to maintain saturations. Cardiac diet. Daily weights, strict I&O's. Patient is followed by Dr. West at [facility]. He is scheduled for cardiac cath on September 24. Spoke to the on-call provider, Ms. Sana Nichols. She recommends trending troponins and continue monitoring on telemetry x24hr. Should the patient continue to clinically improve with stable telemetry and improvement in troponin there will be no need for transfer to their facility ([facility]) and they will plan on continuing with scheduled cath. (2) Stage III chronic kidney disease Is this a current diagnosis for this admission?: Yes Plan: Stable and at baseline currently. Avoid nephrotoxic meds and doses Follow up chemistry (3) Chronic left shoulder pain Is this a current diagnosis for this admission?: Yes Plan: Previously recorded, known subclavian steal syndrome. Analgesics and nonpharmocological interventions as needed. Will trial lidoderm patches. (4) Obesity (BMI 30-39.9) Is this a current diagnosis for this admission?: Yes Plan: Lifestyle modifications and dietary compliance are encouraged. - Time Time Spent with patient: 25-34 minutes Medications reviewed and adjusted accordingly: Yes Anticipated discharge: Home Within: within 24 hours
[2019-09-21] MEDS ORDERED: LIDOCAINE 5% (700 MG) TRANSDERMAL ADH..PATCH TP ONE (19:30)
[2019-09-21] MEDS ORDERED: LIDOCAINE 5% (700 MG) TRANSDERMAL ADH..PATCH ONE (21:18)
[2019-09-21] MEDS ORDERED: LISINOPRIL 5 MG TABLET PO SCH (22:00)
[2019-09-22] MEDS: HEPARIN SOD (PORCINE) 5,000 UNIT/ML 1 ML VIAL SUBCUT SCH (05:21)
[2019-09-22 06:57] LABS: ANION GAP 8 (5-19); BLOOD UREA NITROGEN 34 mg/dL (7-20); CALCIUM 8.8 mg/dL (8.4-10.2); CARBON DIOXIDE 25 mmol/L (22-30); CHLORIDE 105 mmol/L (98-107); GLUCOSE 90 mg/dL (75-110); POTASSIUM 4.7 mmol/L (3.6-5.0)
[2019-09-22 09:02] VITALS: BP 150/99
--- NOTE | 2019-09-22 09:46 | PDOC DISCHARGE SUMMARY ---
Impression - Admit/DC Date/PCP Admission Date/Primary Care Provider: 09/21/19 05:19 GINA CASTELLANOS PA-C Discharge Date: 09/22/19 - Discharge Diagnosis (1) Acute on chronic diastolic CHF (congestive heart failure) Is this a current diagnosis for this admission?: Yes (2) Stage III chronic kidney disease Is this a current diagnosis for this admission?: Yes (3) Chronic left shoulder pain Is this a current diagnosis for this admission?: Yes (4) Obesity (BMI 30-39.9) Is this a current diagnosis for this admission?: Yes - Additional Information Resuscitation Status: Full Code Discharge Diet: Cardiac Discharge Activity: Activity As Tolerated, Balance Activity w/Rest, Weigh Daily Referrals: RICHARD HERNANDEZ MD [NO LOCAL MD] - (Follow up as scheduled.) GINA CASTELLANOS PA-C [Primary Care Provider] - Follow up as needed Prescriptions: Lisinopril [Prinivil 5 mg Tablet] 5 mg PO Q12 #60 tablet Home Medications: Furosemide [Lasix 20 mg Tablet] 20 mg PO DAILY 09/21/19 Acetaminophen [Tylenol 325 mg Tablet] 650 mg PO Q4HP PRN tablet 09/22/19 Lisinopril [Prinivil 5 mg Tablet] 5 mg PO Q12 #60 tablet 09/22/19 History of Present Illiness History of Present Illness: Per H&P by Dr. Cao: INES TURNER JR is a 69 year old male with a past medical history of CKD 3, diastolic heart failure, systolic heart failure with ejection fraction of 35%, subclavian steal syndrome, obesity and remote tobacco. He presents with 24 hours of shortness of breath and nonproductive cough developing a cough with clear sputum over the last 6 hours. Symptoms clearly worse with lying flat, some lower extremity edema but no chest pain nausea or vomiting. Patient called EMS who reports pulse oximetry of 89% on room air with crackles and rales, tachycardia at 115 and a systolic blood pressure of 160/110. He started on CPAP and brought to the emergency room additional findings incl ude acute renal failure, elevated troponin but unremarkable EKG. Patient reports scheduled outpatient cardiac catheterization scheduled September 25, 2019 at [facility]. Hospital Course Hospital Course: (1) Acute on chronic diastolic CHF (congestive heart failure) Resolved; now maintaining oxygen saturations on room air with clear lung sounds. Orthopnea is resolved. Trended troponins. Patient denies chest discomfort; will no longer follow. 0.150-> 0.718-> 0.626-> 0.317 LVEF (03/04/19) 35-40% Patient was admitted to [facility] on continuous cardiac telemetry. He received IV furosemide with near immediate resolution of his symptoms. He has been started on lisinopril twice daily. He was supported with supplemental oxygen and BiPAP; he is now maintaining oxygen saturations, comfortably, on room air while lying supine. Cardiac diet, Daily weights, strict I&O's. Patient is followed by Dr. Hernandez at [facility]. He is scheduled for cardiac cath on September 24. Spoke to the on-call provider, Ms. Sana Nichols. She recommends trending troponins and continue monitoring on telemetry x24hr. Should the patient continue to clinically improve with stable telemetry and improvement in troponin there will be no need for transfer to their facility ([facility]) and they will plan on continuing with scheduled cath. Fortunately, patient remained asymptomatic, with downward trending troponin, and no concerning signs on telemetry. (2) Stage III chronic kidney disease Stable and at baseline currently. (3) Chronic left shoulder pain Previously recorded, known subclavian steal syndrome. Analgesics and nonpharmocological interventions as needed. (4) Obesity (BMI 30-39.9) Lifestyle modifications and dietary compliance are encouraged. Physical Exam Vital Signs: Temp Pulse Resp BP Pulse Ox 98.5 F 48 L 20 150/99 H 93 09/22/19 08:51 09/22/19 08:51 09/22/19 08:51 09/22/19 08:51 09/22/19 08:51 Intake & Output 09/21/19 09/22/19 09/23/19 06:59 06:59 06:59 Intake Total 942 Output Total 2014 Balance -1073 Weight 109.316 kg 114.9 kg General appearance: PRESENT: no acute distress, disheveled, obese, well- developed, well-nourished Head exam: PRESENT: atraumatic, normocephalic Eye exam: PRESENT: conjunctiva pink, EOMI, PERRLA. ABSENT: scleral icterus Mouth exam: PRESENT: moist, tongue midline Neck exam: ABSENT: carotid bruit, JVD, lymphadenopathy, thyromegaly Respiratory exam: PRESENT: clear to auscultation kevyn, symmetrical, unlabored, other - Comfortable lying supine on room air. ABSENT: rales, rhonchi, wheezes Cardiovascular exam: PRESENT: RRR, +S1, +S2. ABSENT: diastolic murmur, rubs, systolic murmur Pulses: PRESENT: normal dorsalis pedis pul Vascular exam: PRESENT: normal capillary refill GI/Abdominal exam: PRESENT: normal bowel sounds, soft, other - Rotund. ABSENT: distended, guarding, mass, organolmegaly, rebound, tenderness Rectal exam: PRESENT: deferred Extremities exam: PRESENT: full ROM. ABSENT: calf tenderness, clubbing, pedal edema Musculoskeletal exam: PRESENT: ambulatory Neurological exam: PRESENT: alert, awake, oriented to person, oriented to place, oriented to time, oriented to situation, CN II-XII grossly intact. ABSENT: motor sensory deficit Psychiatric exam: PRESENT: appropriate affect, normal mood. ABSENT: homicidal ideation, suicidal ideation Skin exam: PRESENT: dry, intact, warm. ABSENT: cyanosis, rash Results Laboratory Results: WBC 5.8 10^3/uL (4.0-10.5) 09/21/19 02:38 RBC 4.55 10^6/uL (4.35-5.55) 09/21/19 02:38 Hgb 14.7 g/dL (13.5-17.0) 09/21/19 02:38 Hct 42.6 % (37.9-51.0) 09/21/19 02:38 MCV 94 fl (80-97) 09/21/19 02:38 MCH 32.3 pg (27.0-33.4) 09/21/19 02:38 MCHC 34.5 g/dL (32.0-36.0) 09/21/19 02:38 RDW 13.3 % (11.5-14.0) 09/21/19 02:38 Plt Count 199 10^3/uL (150-450) 09/21/19 02:38 Lymph % (Auto) 15.9 % (13-45) 09/21/19 02:38 Kemper % (Auto) 8.4 % (3-13) 09/21/19 02:38 Eos % (Auto) 3.0 % (0-6) 09/21/19 02:38 Baso % (Auto) 0.8 % (0-2) 09/21/19 02:38 Absolute Neuts (auto) 4.2 10^3/uL (1.7-8.2) 09/21/19 02:38 Absolute Lymphs (auto) 0.9 10^3/uL (0.5-4.7) 09/21/19 02:38 Absolute Monos (auto) 0.5 10^3/uL (0.1-1.4) 09/21/19 02:38 Absolute Eos (auto) 0.2 10^3/uL (0.0-0.6) 09/21/19 02:38 Absolute Basos (auto) 0.0 10^3/uL (0.0-0.2) 09/21/19 02:38 Seg Neutrophils % 71.9 % (42-78) 09/21/19 02:38 Sodium 137.5 mmol/L (137-145) 09/22/19 05:01 Potassium 4.7 mmol/L (3.6-5.0) 09/22/19 05:01 Chloride 105 mmol/L (98-107) 09/22/19 05:01 Carbon Dioxide 25 mmol/L (22-30) 09/22/19 05:01 Anion Gap 8 (5-19) 09/22/19 05:01 BUN 34 mg/dL (7-20) H 09/22/19 05:01 Creatinine 1.58 mg/dL (0.52-1.25) H 09/22/19 05:01 Est GFR ( Amer) 53 (>60) L 09/22/19 05:01 Est GFR (MDRD) Non-Af 43 (>60) L 09/22/19 05:01 Glucose 90 mg/dL (75-110) 09/22/19 05:01 Calcium 8.8 mg/dL (8.4-10.2) 09/22/19 05:01 Total Bilirubin 0.4 mg/dL (0.2-1.3) 09/21/19 02:38 Direct Bilirubin 0.0 mg/dL (0.0-0.4) 09/21/19 02:38 Neonat Total Bilirubin Not Reportable 09/21/19 02:38 Neonat Direct Bilirubin Not Reportable 09/21/19 02:38 Neonat Indirect Bili Not Reportable 09/21/19 02:38 AST 23 U/L (17-59) 09/21/19 02:38 ALT 18 U/L (<50) 09/21/19 02:38 Alkaline Phosphatase 98 U/L (38-126) 09/21/19 02:38 Troponin I 0.317 ng/mL 09/22/19 07:45 NT-Pro-B Natriuret Pep 4000 pg/mL (<125) H 09/21/19 02:38 Total Protein 6.7 g/dL (6.3-8.2) 09/21/19 02:38 Albumin 3.8 g/dL (3.5-5.0) 09/21/19 02:38 TSH 2.37 uIU/mL (0.47-4.68) 09/21/19 02:38 09/21/19 09/21/19 09/21/19 02:38 10:50 17:07 Troponin I 0.150 0.718 0.626 NT-Pro-B Natriuret Pep 4000 H 09/22/19 07:45 Troponin I 0.317 NT-Pro-B Natriuret Pep Impressions: Chest X-Ray 09/21/19 03:21 IMPRESSION: No active disease. Plan Plan of Treatment: Patient is discharged home in stable condition. He is instructed to follow up with his primary care provider within 1 week. Keep your scheduled appointments with Dr. Hernandez. Keep scheduled Cardiac Cath on 09/25/19. Take medications as prescribed. Eat a low sodium diet. Limit total fluid intake to less than 2 Liters daily. Weigh daily and report any weight gain of more than 2 lbs from the previous day to talent coordinator. Return to the emergency department for any concerning symptoms. Time Spent: Greater than 30 Minutes Stroke Is this a Stroke Patient?: No Acute Heart Failure - Is this a Heart Failure Patient?: Yes Documentation of LVEF assessment?: Yes LVEF < 40%?: Yes-if yes answer questions a through e a) Discharged on ACEI?: Yes b) Discharges on ARB?: No-document contraindications Reason(s) not discharged on ARB: Other - on PRUDENCIO c) Discharged on ARNI?: No-Document Contraindications Reason(s) not discharged on ARNI: Impaired/worsening renal functions d) Discharged on evidence-based Beta nando(carvedilol, sustained release metoprolol succinate, or bisoprolol)?: No, document contraindications Reason(s) not discharged on Evidence-Based Beta Blockers (carvedilol, sustained released metoprolol succinate, or bisoprolol): Other - Medicaations deferred to cardiology; pending cardiac cath e) For LVEF <35%, discharged on Aldosterone antagonist?: No-document contraincations 3. Anticoagulant therapy for permanect/persistent/paraoxysmal Afib or Aflutter: N/A Follow-up Appointment scheduled within 7 days?: Yes
[2019-09-22] MEDS ORDERED: ASPIRIN 325 MG TABLET, ENT COATED PO SCH (10:00)
[2019-09-23] MEDS ORDERED: LIDOCAINE 5% (700 MG) TRANSDERMAL ADH..PATCH TP SCH (10:00)
== END 2019-09-22 09:59 | disposition home or self-care (01) | DRG 291 ==
LOC: ER 02:03 → EH 05:19 → 3W 07:12
PROVIDERS: ADMIT Internal Medicine; ATTEND Internal Medicine
PROC: 5A1945Z Respiratory Ventilation, 24-96 Consecutive Hours (ICD-10-PCS; principal; 2019-09-21)
PROC: 0BH17EZ Insertion of Endotracheal Airway into Trachea, Via Natural or Artificial Opening (ICD-10-PCS; 2019-09-21)
DX: I13.0 Hypertensive heart and chronic kidney disease with heart failure and stage 1 through stage 4 chronic kidney disease, or unspecified chronic kidney disease (principal); I50.43 Acute on chronic combined systolic (congestive) and diastolic (congestive) heart failure; N18.3 Chronic kidney disease, stage 3 (moderate); M25.512 Pain in left shoulder; E66.01 Morbid (severe) obesity due to excess calories; I25.10 Atherosclerotic heart disease of native coronary artery without angina pectoris; F17.210 Nicotine dependence, cigarettes, uncomplicated; R06.01 Orthopnea; Z86.73 Personal history of transient ischemic attack (TIA), and cerebral infarction without residual deficits; Z79.899 Other long term (current) drug therapy
CPT/HCPCS: 36415; 71045; 80048; 80053; 83880; 84443; 84484; 85025; 93005; 93010; 94660; 96374; 99285; J1644; J1940; J3490

== ENCOUNTER 2019-10-08 15:13 | Emergency (ER) | payer OTHER, MEDICARE ==
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
[2019-10-08 16:14] LABS: HEMOGLOBIN 11.4 g/dL (13.5-17.0); MEAN CORPUSCULAR HEMOGLOBIN 32.5 pg (27.0-33.4); MEAN CORPUSCULAR HGB CONC 34.6 g/dL (32.0-36.0); MEAN CORPUSCULAR VOLUME 94 fl (80-97); PLATELET COUNT 348 10^3/uL (150-450); RED BLOOD COUNT 3.51 10^6/uL (4.35-5.55); RED CELL DISTRIBUTION WIDTH 13.8 % (11.5-14.0); WHITE BLOOD COUNT 11.4 10^3/uL (4.0-10.5)
[2019-10-08 16:32] LABS: ALBUMIN 3.6 g/dL (3.5-5.0); ALKALINE PHOSPHATASE 83 U/L (38-126); ANION GAP 8 (5-19); ASPARTATE AMINO TRANSFERASE 49 U/L (17-59); BILIRUBIN,DIRECT 0.1 mg/dL (0.0-0.4); BLOOD UREA NITROGEN 34 mg/dL (7-20); CARBON DIOXIDE 24 mmol/L (22-30); CHLORIDE 103 mmol/L (98-107); CREATINE KINASE 175 U/L (55-170); GLUCOSE 131 mg/dL (75-110); POTASSIUM 5.1 mmol/L (3.6-5.0); TOTAL PROTEIN 6.7 g/dL (6.3-8.2)
[2019-10-08 16:38] LABS: ALCOHOL < 10 mg/dL (NONE DETECTED)
[2019-10-08 16:41] LABS: ABSOLUTE LYMPHOCYTES# (MANUAL) 0.9 10^3/uL (0.5-4.7); ABSOLUTE MONOCYTES # (MANUAL) 0.5 10^3/uL (0.1-1.4); BASOPHILS % (MANUAL) 0 % (0-2); EOSINOPHILS % (MANUAL) 3 % (0-6); HYPERSEGMENTED NEUTROPHILS PRESENT; LYMPHOCYTES % (MANUAL) 8 % (13-45); MONOCYTES % (MANUAL) 4 % (3-13); PLATELET COMMENT ADEQUATE; SEGMENTED NEUTROPHILS % (MAN) 85 % (42-78); TOTAL CELLS COUNTED 100
[2019-10-08 16:45] LABS: POLYCHROMASIA SLIGHT
[2019-10-08 16:46] LABS: CREATINE KINASE MB 1.95 ng/mL (<4.55); SCHISTOCYTES SLIGHT
[2019-10-08 16:47] LABS: OVALOCYTES SLIGHT
[2019-10-08 16:52] LABS: TROPONIN I 0.51 ng/mL
[2019-10-08] MEDS ORDERED: NORMAL SALINE 1000 ML 1,000 ML IV ONE (16:58)
[2019-10-08 17:19] LABS: APPEARANCE,URINE CLEAR; BILIRUBIN,URINE NEGATIVE (NEGATIVE); COLOR,URINE YELLOW; GLUCOSE, URINE NEGATIVE (NEGATIVE); KETONES,URINE NEGATIVE (NEGATIVE); LEUKOCYTE ESTERASE,URINE NEGATIVE (NEGATIVE); NITRITE,URINE NEGATIVE (NEGATIVE); PROTEIN,URINE 100 mg/dL (NEGATIVE); URINE SPECIFIC GRAVITY 1.015; UROBILINOGEN,URINE NEGATIVE mg/dL (<2.0)
[2019-10-08 17:23] LABS: URINE AMPHETAMINES SCREEN NEGATIVE; URINE BARBITURATES SCREEN NEGATIVE; URINE BENZODIAZEPINES SCREEN NEGATIVE; URINE COCAINE SCREEN NEGATIVE; URINE MARIJUANA (THC) SCREEN NEGATIVE; URINE METHADONE SCREEN NEGATIVE; URINE PHENCYCLIDINE SCREEN NEGATIVE
--- NOTE | 2019-10-08 17:30 | EKG REPORT ---
SEVERITY:- ABNORMAL ECG - SINUS RHYTHM VENTRICULAR PREMATURE COMPLEXES PROBABLE LEFT ATRIAL ABNORMALITY NONSPECIFIC T ABNORMALITIES, LATERAL LEADS : Confirmed by: Grady Dejesus MD 08-Oct-2019 17:30:02
[2019-10-08 19:05] VITALS: BP 112/51
== END 2019-10-08 19:06 | disposition home or self-care (01) ==
LOC: ER 15:13
DX: R55 Syncope and collapse (principal); S51.812A Laceration without foreign body of left forearm, initial encounter; S51.012A Laceration without foreign body of left elbow, initial encounter; S01.81XA Laceration without foreign body of other part of head, initial encounter; V48.5XXA Car driver injured in noncollision transport accident in traffic accident, initial encounter; R41.0 Disorientation, unspecified; I49.3 Ventricular premature depolarization; I10 Essential (primary) hypertension; I25.10 Atherosclerotic heart disease of native coronary artery without angina pectoris; Z95.1 Presence of aortocoronary bypass graft; Z87.891 Personal history of nicotine dependence
CPT/HCPCS: 93005; 99285; 96360; 36415; 82553; 80307 ×2; 82550; 85025; 80053; 81001; 84484; 83880; 71046; 70450; 93010; J7030

== ENCOUNTER 2020-02-08 08:23 | Inpatient (IN) | payer OTHER, MEDICARE ==
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
[2020-02-08 10:06] LABS: ABSOLUTE MONOCYTES (AUTO) 0.5 10^3/uL (0.1-1.4); HEMOGLOBIN 13.3 g/dL (13.5-17.0); MEAN CORPUSCULAR HEMOGLOBIN 30.9 pg (27.0-33.4); TOTAL CELLS COUNTED % (AUTO) 100 %
[2020-02-08 10:24] LABS: ABSOLUTE LYMPHOCYTES (AUTO) 0.6 10^3/uL (0.5-4.7); ABSOLUTE NEUT (AUTO) 2.3 10^3/uL (1.7-8.2); BASOPHILS % (AUTO) 0.4 % (0-2); EOSINOPHILS % (AUTO) 0.1 % (0-6); HEMATOCRIT 39.6 % (37.9-51.0); LYMPHOCYTES % (AUTO) 18.6 % (13-45); MEAN CORPUSCULAR HGB CONC 33.7 g/dL (32.0-36.0); MEAN CORPUSCULAR VOLUME 92 fl (80-97); MONOCYTES % (AUTO) 13.6 % (3-13); PLATELET COUNT 160 10^3/uL (150-450); RED BLOOD COUNT 4.32 10^6/uL (4.35-5.55); RED CELL DISTRIBUTION WIDTH 14.7 % (11.5-14.0); SEGMENTED NEUTROPHILS % (AUTO) 67.3 % (42-78); WHITE BLOOD COUNT 3.5 10^3/uL (4.0-10.5)
[2020-02-08 10:26] LABS: ALKALINE PHOSPHATASE 72 U/L (38-126); ANION GAP 8 (5-19); ASPARTATE AMINO TRANSFERASE 34 U/L (17-59); BILIRUBIN,TOTAL 0.5 mg/dL (0.2-1.3); BLOOD UREA NITROGEN 31 mg/dL (7-20); CALCIUM 8.6 mg/dL (8.4-10.2); CARBON DIOXIDE 23 mmol/L (22-30); CHLORIDE 103 mmol/L (98-107); GLUCOSE 102 mg/dL (75-110); POTASSIUM 4.7 mmol/L (3.6-5.0)
--- NOTE | 2020-02-08 10:28 | RADIOLOGY REPORT (SQ) ---
EXAM DESCRIPTION: CHEST SINGLE VIEW IMAGES COMPLETED DATE/TIME: 02/08/2020 10:12 am REASON FOR STUDY: dyspnea on exertion COMPARISON: 01/29/2020 EXAM PARAMETERS: NUMBER OF VIEWS: One view. TECHNIQUE: Single frontal radiographic view of the chest acquired. RADIATION DOSE: NA LIMITATIONS: Overlying medical devices partially obscure the chest. FINDINGS: LUNGS AND PLEURA: No opacities, masses or pneumothorax. No pleural effusion. MEDIASTINUM AND HILAR STRUCTURES: No masses. Contour normal. HEART AND VASCULAR STRUCTURES: Heart normal in size. Normal vasculature. BONES: No acute findings. HARDWARE: Cardiac loop recorder. Multiple presumably medical devices project over the mediastinum an d left hemithorax. OTHER: No other significant finding. IMPRESSION: No evidence of acute cardiopulmonary abnormality. TECHNICAL DOCUMENTATION: JOB ID: [id number] 2010 [employer]- All Rights Reserved Reading location - IP/workstation name: [email or web address]
[2020-02-08 11:07] LABS: TROPONIN I 0.16 ng/mL
--- NOTE | 2020-02-08 11:13 | RADIOLOGY REPORT (SQ) ---
EXAM DESCRIPTION: CT HEAD WITHOUT IMAGES COMPLETED DATE/TIME: 02/08/2020 11:01 am REASON FOR STUDY: fall ams gait change COMPARISON: None. TECHNIQUE: Axial images acquired through the brain without intravenous contrast. Images reviewed wi th bone, brain and subdural windows. Additional sagittal and coronal reconstructions were generated. Images stored on PACS. All CT scanners at this facility use dose modulation, iterative reconstruction, and/or weight based d osing when appropriate to reduce radiation dose to as low as reasonably achievable (ALARA). [facility]: Dose Right [facility]: CareDose [facility]: Dose Right [facility]: Teradose 4D [facility]: Smart Veodin RADIATION DOSE: CT Rad equipment meets quality standard of care and radiation dose reduction techniq ues were employed. CTDIvol: 53.2 mGy. DLP: 1097 mGy-cm. mGy. LIMITATIONS: None. FINDINGS: VENTRICLES: Prominent. CEREBRUM: No masses. No hemorrhage. No midline shift. Areas of low density in the white matter mos t likely due to chronic micro-vascular ischemic change. Left on the lacune or infarct. No evidence for acute infarction. CEREBELLUM: No masses. No hemorrhage. No alteration of density. No evidence for acute infarction. EXTRAAXIAL SPACES: Mild age-related involutional change. No fluid collections. No masses. ORBITS AND GLOBE: No intra- or extraconal masses. Normal contour of globe without masses. CALVARIUM: No fracture. PARANASAL SINUSES: No fluid or mucosal thickening. SOFT TISSUES: No mass or hematoma. OTHER: No other significant finding. IMPRESSION: MILD CHRONIC CHANGES OF ATROPHY AND MICROVASCULAR ISCHEMIA. NO ACUTE PROCESS. EVIDENCE OF ACUTE STROKE: NO. TECHNICAL DOCUMENTATION: JOB ID: [id number] Quality ID # [id number]: Final reports with documentation of one or more dose reduction techniques (e.g., Au tomated exposure control, adjustment of the mA and/or kV according to patient size, use of iterative reconstruction technique) 2010 [employer]- All Rights Reserved Reading location - IP/workstation name: [email or web address]
[2020-02-08] MEDS ORDERED: FUROSEMIDE INJ/PF 40 MG/4 ML SDV IV ONE (12:13)
[2020-02-08 13:40] LABS: APPEARANCE,URINE SLIGHTLY-CLOUDY; BILIRUBIN,URINE NEGATIVE (NEGATIVE); COLOR,URINE YELLOW; GLUCOSE, URINE NEGATIVE (NEGATIVE); KETONES,URINE NEGATIVE (NEGATIVE); LEUKOCYTE ESTERASE,URINE NEGATIVE (NEGATIVE); NITRITE,URINE NEGATIVE (NEGATIVE); PROTEIN,URINE 100 mg/dL (NEGATIVE); URINE SPECIFIC GRAVITY 1.013; UROBILINOGEN,URINE NEGATIVE mg/dL (<2.0)
[2020-02-08] MEDS ORDERED: ALBUTEROL SULFATE 0.083% NEB 2.5 MG/3 ML AMPUL NEB PRN (13:43)
[2020-02-08] MEDS ORDERED: MAG HYDROX/AL HYDROX/SIMETH SUSP 30 ML UDCUP PO PRN (13:43)
[2020-02-08] MEDS ORDERED: ONDANSETRON HCL INJ/PF 4 MG/2 ML SDV IV PRN (13:43)
--- NOTE | 2020-02-08 14:30 | PDOC H&P ---
History of Present Illness Admission Date/PCP: [facility] Patient complains of: Weakness in lower extremities, shortness of breath History of Present Illness: INES TURNER JR is a 69 year old male with history of systolic heart failure, CAD status post triple bypass, chronic back pain, presents to the hospital with fatigue and progressive difficulty with ambulation. Patient states that he fell out of his truck a few days ago and hit the back of his head. Since then he has been having difficulty ambulating. His states that he walks with a limp. Patient denies any chest pain. He does endorse shortness of breath which he says is worse from his recent discharge. He denies any fever or chills. Denies any cough. Denies any orthopnea. Denies any bowel incontinence. Has urge incontinence symptoms of urinary. Has had chronic back pain which has worsened in any recent days. Past Medical History Cardiac Medical History: Reports: Congestive Heart Failure, Coronary Artery Disease, Hypertension Denies: Atrial Fibrillation, DVT, Myocardial Infarction, Hyperlipidema, Pulmonary Embolism Pulmonary Medical History: Reports: Respiratory Failure, Sleep Apnea Denies: Asthma, Bronchitis, Chronic Obstructive Pulmonary Disease (COPD), Pneumonia Neurological Medical History: Denies: Seizures Endocrine Medical History: Denies: Diabetes Mellitus Type 1, Diabetes Mellitus Type 2, Hyperthyroidism, Hypothyroidism GI Medical History: Denies: Cirrhosis, Crohn's Disease, Gastroesophageal Reflux Disease, Hep atitis, Ulcerative Colitis Musculoskeltal Medical History: Denies: Arthritis, Gout Skin Medical History: Denies: Eczema, Psoriasis Psychiatric Medical History: Denies: Depression Hematology: Denies: Anemia, Bleeding Tendencies Past Surgical History Past Surgical History: Reports: Cardiac Catheterization, Coronary Artery Bypass Graft Social History Smoking Status: Former Smoker Frequency of Alcohol Use: None Hx Recreational Drug Use: No Drugs: None Hx Prescription Drug Abuse: No - Advance Directive Resuscitation Status: Full Code Family History Family History: DM, Hypertension. denies: CAD, Malignancy Parental Family History Reviewed: Yes Children Family History Reviewed: NA Sibling(s) Family History Reviewed.: NA Medication/Allergy Home Medications: Aspirin [Aspirin 81 mg Chewable Tablet] 81 mg PO DAILY 01/29/20 Clopidogrel Bisulfate [Plavix 75 mg Tablet] 75 mg PO DAILY #30 tablet 02/03/20 Metoprolol Succinate [Toprol Xl 50 mg Tab.sr] 50 mg PO DAILY #30 tab.sr.24h 02/03/20 Sacubitril/Valsartan [Entresto 49 mg/51 mg Tablet] 1 tab PO Q12 #60 tablet 02/03/20 Allergies/Adverse Reactions: No Known Allergies Allergy (Verified 02/08/20 10:21) Review of Systems Constitutional: ABSENT: chills, fever(s) Eyes: ABSENT: visual disturbances Nose, Mouth, and Throat: ABSENT: headache(s) Cardiovascular: PRESENT: dyspnea on exertion. ABSENT: chest pain Gastrointestinal: ABSENT: abdominal pain Genitourinary: ABSENT: dysuria Musculoskeletal: PRESENT: back pain Integumentary: ABSENT: diaphoresis Neurological: ABSENT: dizziness Psychiatric: ABSENT: anxiety Endocrine: ABSENT: polyuria Hematologic/Lymphatic: ABSENT: easy bruising Physical Exam Vital Signs: Temp Pulse Resp BP Pulse Ox 98.2 F 55 L 22 H 109/68 100 02/08/20 08:28 02/08/20 08:28 02/08/20 12:01 02/08/20 12:01 02/08/20 12:01 General appearance: PRESENT: no acute distress, cooperative Mouth exam: PRESENT: neck supple Neck exam: ABSENT: JVD Respiratory exam: PRESENT: clear to auscultation kevyn, symmetrical, unlabored. ABSENT: tachypnea, wheezes Cardiovascular exam: PRESENT: +S1, +S2, tachycardia. ABSENT: irregular rhythm GI/Abdominal exam: PRESENT: soft. ABSENT: rebound, rigid, tenderness Extremities exam: PRESENT: pedal edema, +1 edema Neurological exam: PRESENT: alert, awake, oriented to person, oriented to place, oriented to time, oriented to situation, motor sensory deficit - 4/5 in both lower extremities Psychiatric exam: ABSENT: agitated Focused psych exam: ABSENT: pressured speech Skin exam: ABSENT: jaundice, warm Results Laboratory Results: 02/08/20 09:49 02/08/20 09:49 02/08/20 02/08/20 02/08/20 09:49 09:49 13:03 WBC 3.5 L RBC 4.32 L Hgb 13.3 L Hct 39.6 MCV 92 MCH 30.9 MCHC 33.7 RDW 14.7 H Plt Count 160 Seg Neutrophils % 67.3 Sodium 134.0 L Potassium 4.7 Chloride 103 Carbon Dioxide 23 Anion Gap 8 BUN 31 H Creatinine 2.04 H Est GFR ( Amer) 39 L Glucose 102 Calcium 8.6 Total Bilirubin 0.5 AST 34 Alkaline Phosphatase 72 Total Protein 7.0 Albumin 4.0 Urine Color YELLOW Urine Appearance SLIGHTLY-CLOUDY Urine pH 5.0 Ur Specific [place] 1.013 Urine Protein 100 H Urine Glucose (UA) NEGATIVE Urine Ketones NEGATIVE Urine Blood SMALL H Urine Nitrite NEGATIVE Ur Leukocyte Esterase NEGATIVE Urine WBC (Auto) 1 Urine RBC (Auto) 0 02/08/20 09:49 Troponin I 0.160 NT-Pro-B Natriuret Pep 5540 H Impressions: Chest X-Ray 02/08/20 09:53 IMPRESSION: No evidence of acute cardiopulmonary abnormality. Head CT 02/08/20 10:19 IMPRESSION: MILD CHRONIC CHANGES OF ATROPHY AND MICROVASCULAR ISCHEMIA. NO ACUTE PROCESS. EVIDENCE OF ACUTE STROKE: NO. Assessment and Plan - Diagnosis (1) Elevated troponin Is this a current diagnosis for this admission?: Yes Plan: Denies chest pain or dyspnea at rest. Does have history of CAD status post triple bypass. He is on aspirin and Plavix. Troponin 0 0.16. Does not seem significantly changed from prior. We will trend patient's troponins. Check lipid plater printed circuit board panels on telemetry (2) Ambulatory dysfunction Is this a current diagnosis for this admission?: Yes Plan: Weak in both lower extremities. Possibly deconditioned. On exam, he does have some bruising on his right knee. Will check x-rays of his knee and hip. Physical and Occupational Therapy. Social work consult for potential rehab placement. (3) MARK (obstructive sleep apnea) Is this a current diagnosis for this admission?: Yes Plan: I believe this is uncontrolled and likely contributing mostly to his dyspnea. Patient states he was diagnosed with sleep apnea in the past but never received CPAP machine which he had been planned for. We will see if we can do a nocturnal pulse ox trend and qualify patient for nocturnal CPAP given his uncontrolled sleep apnea. Case management consult (4) Systolic heart failure Qualifiers: Heart failure chronicity: acute on chronic Qualified Code(s): I50.23 - Acute on chronic systolic (congestive) heart failure Is this a current diagnosis for this admission?: Yes Plan: Not so much fluid overloaded but could use some more gentle diuresis. Received IV Lasix today. BMP mildly elevated but patient is comfortable and not having orthopnea at this time. Does endorse dyspnea on exertion. Chest x-ray shows no pulmonary edema Echo last year showed EF of 35 to 40%. Last admission shows patient was planned for LifeVest. Monitor on telemetry. Lasix, Entresto, Toprol-XL. (5) Acute kidney injury superimposed on chronic kidney disease Is this a current diagnosis for this admission?: Yes Plan: Baseline seems to be 1.6-1.8. Will monitor renal function with diuresis. Not too far from baseline currently quite frankly. (6) Ventricular ectopy Is this a current diagnosis for this admission?: Yes Plan: Chronic. Monitor on telemetry. Continue beta-nando. We will try to find out about patient's status of his LifeVest. (7) Obesity (BMI 30-39.9) Is this a current diagnosis for this admission?: Yes - Time Time Spent with patient: 35 or more minutes Anticipated Discharge Disposition: [facility] Facility Anticipated Discharge Timeframe: within 72 hours
[2020-02-08] MEDS: HEPARIN SOD (PORCINE) 5,000 UNIT/ML 1 ML VIAL SUBCUT SCH ×2 (15:49→21:13)
--- NOTE | 2020-02-08 17:09 | RADIOLOGY REPORT (SQ) ---
EXAM DESCRIPTION: HIP RIGHT AP/LATERAL IMAGES COMPLETED DATE/TIME: 02/08/2020 4:07 pm REASON FOR STUDY: fall COMPARISON: None. NUMBER OF VIEWS: Two views. TECHNIQUE: AP pelvis and additional frog-leg view of the right hip. LIMITATIONS: None. FINDINGS: MINERALIZATION: Normal. RIGHT HIP: No acute fracture. Moderate degenerative changes. LEFT HIP: Severe degenerative changes of the left hip with joint space narrowing and sclerosis. PUBIS AND ISCHIUM: No fracture. PELVIS: No fracture. SACRUM: No fracture or dislocation. No worrisome bone lesions. LOWER LUMBAR SPINE: No fracture or dislocation. No worrisome bone lesions. No significant disc disea se. SOFT TISSUES: No findings. OTHER: No other significant finding. IMPRESSION: No acute fracture. Severe degenerative changes of the left hip. TECHNICAL DOCUMENTATION: JOB ID: [id number] 2010 [employer]- All Rights Reserved Reading location - IP/workstation name: [email or web address]
--- NOTE | 2020-02-08 17:09 | RADIOLOGY REPORT (SQ) ---
EXAM DESCRIPTION: KNEE RIGHT 3 VIEWS IMAGES COMPLETED DATE/TIME: 02/08/2020 4:07 pm REASON FOR STUDY: fall COMPARISON: None. NUMBER OF VIEWS: Three views. TECHNIQUE: AP, lateral, and sunrise patella radiographic images acquired of the right knee. LIMITATIONS: None. FINDINGS: MINERALIZATION: Normal. BONES: No acute fracture or dislocation. No worrisome bone lesions. JOINT: No effusion. SOFT TISSUES: No soft tissue swelling. No radio-opaque foreign body. OTHER: No other significant finding. IMPRESSION: NEGATIVE STUDY OF THE RIGHT KNEE. NO RADIOGRAPHIC EVIDENCE OF ACUTE INJURY. TECHNICAL DOCUMENTATION: JOB ID: [id number] 2010 [employer]- All Rights Reserved Reading location - IP/workstation name: [email or web address]
[2020-02-08] MEDS: SACUBITRIL/VALSARTAN 49 MG/51 MG TABLET PO SCH (21:13)
--- NOTE | 2020-02-08 23:15 | EKG REPORT ---
SEVERITY:- ABNORMAL ECG - SINUS TACHYCARDIA VENTRICULAR BIGEMINY PROBABLE LEFT ATRIAL ABNORMALITY LEFT AXIS DEVIATION NONSPECIFIC T ABNORMALITIES, LATERAL LEADS BORDERLINE PROLONGED QT INTERVAL : Confirmed by: Michael Leon MD 08-Feb-2020 23:14:24
[2020-02-09 06:27] LABS: ANION GAP 11 (5-19); BLOOD UREA NITROGEN 34 mg/dL (7-20); CALCIUM 8.4 mg/dL (8.4-10.2); CARBON DIOXIDE 17 mmol/L (22-30); CHLORIDE 105 mmol/L (98-107); CHOLESTEROL 206.21 mg/dL (0-200); GLUCOSE 110 mg/dL (75-110); POTASSIUM 4.2 mmol/L (3.6-5.0); TRIGLYCERIDES 86 mg/dL (<150)
[2020-02-09 06:38] LABS: DIRECT LDL 129 mg/dL (<100)
[2020-02-09] MEDS: HEPARIN SOD (PORCINE) 5,000 UNIT/ML 1 ML VIAL SUBCUT SCH ×3 (06:43→21:38)
[2020-02-09] MEDS ORDERED: METOPROLOL SUCCINATE 50 MG TAB.SR.24H PO SCH (10:00)
[2020-02-09] MEDS ORDERED: FUROSEMIDE 40 MG TABLET PO SCH (10:00)
[2020-02-09] MEDS ORDERED: FUROSEMIDE INJ/PF 40 MG/4 ML SDV IV SCH (10:00)
[2020-02-09] MEDS: SACUBITRIL/VALSARTAN 49 MG/51 MG TABLET PO SCH ×2 (10:36→21:37)
[2020-02-09] MEDS: CLOPIDOGREL BISULFATE 75 MG TABLET PO SCH (10:36)
[2020-02-09] MEDS: METOPROLOL SUCCINATE 50 MG TAB.SR.24H PO SCH (10:36)
[2020-02-09] MEDS: ASPIRIN 81 MG TABLET, ENT COATED PO SCH (10:37)
--- NOTE | 2020-02-09 12:33 | PDOC PROGRESS REPORT ---
Subjective Progress Note for:: 02/09/20 Subjective:: Patient still feels a little short of breath when he ambulates. Otherwise just feels tired. Still quite weak all over. Reason For Visit: WEAKNESS,ELEVATED TROPONIN,CHF Physical Exam Vital Signs: Temp Pulse Resp BP Pulse Ox 97.5 F 122 H 19 109/77 96 02/09/20 07:48 02/09/20 07:48 02/09/20 07:48 02/09/20 07:48 02/09/20 07:48 Pulse Oximeter Nocturnal Start: 02/08/20 13:55 Freq: RTQ4 Status: Complete Protocol: Document 02/09/20 04:00 LRO (Rec: 02/09/20 05:38 LRO [id number]) Nocturnal Pulse Oximetry Equipment Usage Equipment in Use Oxygen Delivery Method (includes room Room Air air) O2 Sat by Pulse Oximetry (92-100) 95 Continuous SpO2 Machine # 2 Intake & Output 02/08/20 02/09/20 02/10/20 06:59 06:59 06:59 Intake Total 580 Output Total 200 Balance 380 Weight 101 kg General appearance: PRESENT: no acute distress, cooperative Neck exam: ABSENT: JVD Respiratory exam: PRESENT: tachypnea - mildly, unlabored. ABSENT: accessory m uscle use, retraction, wheezes Cardiovascular exam: PRESENT: RRR, +S1, +S2, tachycardia GI/Abdominal exam: PRESENT: normal bowel sounds, soft. ABSENT: rebound, rigid, tenderness Extremities exam: PRESENT: +1 edema Neurological exam: PRESENT: alert, awake, oriented to person, oriented to place, oriented to time Results Laboratory Results: 02/08/20 09:49 02/09/20 05:31 02/08/20 02/09/20 02/09/20 13:03 05:31 05:31 Sodium 132.5 L Potassium 4.2 Chloride 105 Carbon Dioxide 17 L Anion Gap 11 BUN 34 H Creatinine 1.93 H Est GFR ( Amer) 42 L Glucose 110 Calcium 8.4 Magnesium 1.9 Triglycerides 86 Cholesterol 206.21 H LDL Cholesterol Direct 129 H VLDL Cholesterol 17.0 HDL Cholesterol 44 TSH 0.89 Urine Color YELLOW Urine Appearance SLIGHTLY-CLOUDY Urine pH 5.0 Ur Specific [place] 1.013 Urine Protein 100 H Urine Glucose (UA) NEGATIVE Urine Ketones NEGATIVE Urine Blood SMALL H Urine Nitrite NEGATIVE Ur Leukocyte Esterase NEGATIVE Urine WBC (Auto) 1 Urine RBC (Auto) 0 02/08/20 02/08/20 09:49 13:11 Troponin I 0.160 0.155 NT-Pro-B Natriuret Pep 5540 H Impressions: Hip/Pelvis X-Ray 02/08/20 00:00 IMPRESSION: No acute fracture. Severe degenerative changes of the left hip. Knee X-Ray 02/08/20 00:00 IMPRESSION: NEGATIVE STUDY OF THE RIGHT KNEE. NO RADIOGRAPHIC EVIDENCE OF ACUTE INJURY. Chest X-Ray 02/08/20 09:53 IMPRESSION: No evidence of acute cardiopulmonary abnormality. Head CT 02/08/20 10:19 IMPRESSION: MILD CHRONIC CHANGES OF ATROPHY AND MICROVASCULAR ISCHEMIA. NO ACUTE PROCESS. EVIDENCE OF ACUTE STROKE: NO. Assessment and Plan - Diagnosis (1) Coronary artery disease Qualifiers: Coronary Disease-Associated Artery/Lesion type: [place] artery [place] vs. transplanted heart: [place] heart Associated angina: with unspecified angina Qualified Code(s): I25.119 - Atherosclerotic heart disease of [place] coronary artery with unspecified angina pectoris Is this a current diagnosis for this admission?: Yes Plan: Elevated troponins on admission but trended down subsequently. Denies any chest pain. ACS unlikely. History of coronary artery bypass. Continue beta-nando. Start on atorvastatin given hyperlipidemia. (2) Ambulatory dysfunction Is this a current diagnosis for this admission?: Yes Plan: Weak in both lower extremities. Possibly deconditioned. Has severe osteoarthritis in left hip. No fractures noted on imaging. Physical and Occupational Therapy. Social work consult for potential rehab placement. (3) MARK (obstructive sleep apnea) Is this a current diagnosis for this admission?: Yes Plan: Patient states he was diagnosed with sleep apnea in the past but never received CPAP machine which he had been planned for. Performed nocturnal pulse ox trend on Monday night which was essentially negative. Outpatient sleep study. (4) Systolic heart failure Qualifiers: Heart failure chronicity: acute on chronic Qualified Code(s): I50.23 - Acute on chronic systolic (congestive) heart failure Is this a current diagnosis for this admission?: Yes Plan: Not so much fluid overloaded but could use some more gentle diuresis. Received IV Lasix today. BMP mildly elevated but patient is comfortable and not having orthopnea at this time. Does endorse dyspnea on exertion. Chest x-ray shows no pulmonary edema Echo last year showed EF of 35 to 40%. Was discharged with a LifeVest on last admission but has lost the fire extinguisher charger for the LifeVest. is trying to find it. Monitor on telemetry. LasDiana raoo, increased dose of Toprol-XL. Echo tomorrow for EF reassessment.. (5) Acute kidney injury superimposed on chronic kidney disease Is this a current diagnosis for this admission?: Yes Plan: Baseline seems to be 1.6-1.8. 2 on admission. Improving with diuresis. Continue to monitor renal function. (6) Ventricular ectopy Is this a current diagnosis for this admission?: Yes Plan: Chronic. Monitor on telemetry. Continue beta-nando. is trying to find patient's LifeVest fire extinguisher charger. (7) Obesity (BMI 30-39.9) Is this a current diagnosis for this admission?: Yes - Time Time Spent with patient: Less than 15 minutes Anticipated Discharge Disposition: Intermediate Facility Anticipated Discharge Timeframe: within 36 hours - Inpatient Certification Medical Necessity: Failure to Improve With Outpatient Therapy, Need Close Monitoring Due to Risk of Patient Decompensation, Risk of Complication if Not Cared For in Hospital
[2020-02-09] MEDS: ATORVASTATIN CALCIUM 40 MG TABLET PO SCH (21:37)
[2020-02-10] MEDS: HEPARIN SOD (PORCINE) 5,000 UNIT/ML 1 ML VIAL SUBCUT SCH ×3 (05:19→22:27)
[2020-02-10 06:44] LABS: ANION GAP 14 (5-19); BLOOD UREA NITROGEN 44 mg/dL (7-20); CALCIUM 8.2 mg/dL (8.4-10.2); CARBON DIOXIDE 17 mmol/L (22-30); CHLORIDE 102 mmol/L (98-107); GLUCOSE 128 mg/dL (75-110); POTASSIUM 4.3 mmol/L (3.6-5.0)
[2020-02-10] MEDS ORDERED: OXYMETAZOLINE HCL 0.05% NASAL SPRAY 15 ML BOTTLE NASL ONE (09:30)
[2020-02-10] MEDS ORDERED: FUROSEMIDE 40 MG TABLET PO SCH (10:00)
--- NOTE | 2020-02-10 11:49 | PDOC PROGRESS REPORT ---
Subjective Progress Note for:: 02/10/20 Subjective:: The patient often seems to be mildly tachypneic but does complain of stuffy nose or nasal congestion. Otherwise feels fine. He continues to deny any shortness of breath. Denies chest pain. Reason For Visit: WEAKNESS,ELEVATED TROPONIN,CHF Physical Exam Vital Signs: Temp Pulse Resp BP Pulse Ox 99.8 F 98 21 H 119/63 99 02/10/20 07:59 02/10/20 07:59 02/10/20 07:59 02/10/20 07:59 02/10/20 07:59 Pulse Oximeter Nocturnal Start: 02/08/20 13:55 Freq: RTQ4 Status: Complete Protocol: Document 02/09/20 04:00 LRO (Rec: 02/09/20 05:38 LRO [id number]) Nocturnal Pulse Oximetry Equipment Usage Equipment in Use Oxygen Delivery Method (includes room Room Air air) O2 Sat by Pulse Oximetry (92-100) 95 Continuous SpO2 Machine # 2 Intake & Output 02/09/20 02/10/20 02/11/20 06:59 06:59 06:59 Intake Total 580 877 Output Total 200 1125 Balance 380 -248 Weight 101 kg 102.4 kg General appearance: PRESENT: no acute distress, cooperative Neck exam: ABSENT: JVD Respiratory exam: PRESENT: clear to auscultation kevyn, symmetrical, tachypnea, unlabored. ABSENT: crackles, wheezes Cardiovascular exam: PRESENT: +S1, +S2 GI/Abdominal exam: PRESENT: soft. ABSENT: rebound, rigid, tenderness Extremities exam: PRESENT: +1 edema Neurological exam: PRESENT: alert, awake Results Laboratory Results: 02/08/20 09:49 02/10/20 05:02 02/10/20 05:02 Sodium 132.7 L Potassium 4.3 Chloride 102 Carbon Dioxide 17 L Anion Gap 14 BUN 44 H Creatinine 2.19 H Est GFR ( Amer) 36 L Glucose 128 H Calcium 8.2 L Magnesium 2.0 02/08/20 02/08/20 09:49 13:11 Troponin I 0.160 0.155 NT-Pro-B Natriuret Pep 5540 H Impressions: Hip/Pelvis X-Ray 02/08/20 00:00 IMPRESSION: No acute fracture. Severe degenerative changes of the left hip. Knee X-Ray 02/08/20 00:00 IMPRESSION: NEGATIVE STUDY OF THE RIGHT KNEE. NO RADIOGRAPHIC EVIDENCE OF ACUTE INJURY. Chest X-Ray 02/08/20 09:53 IMPRESSION: No evidence of acute cardiopulmonary abnormality. Head CT 02/08/20 10:19 IMPRESSION: MILD CHRONIC CHANGES OF ATROPHY AND MICROVASCULAR ISCHEMIA. NO ACUTE PROCESS. EVIDENCE OF ACUTE STROKE: NO. Assessment and Plan - Diagnosis (1) Coronary artery disease Qualifiers: Coronary Disease-Associated Artery/Lesion type: [place] artery [place] vs. transplanted heart: [place] heart Associated angina: with unspecified angina Qualified Code(s): I25.119 - Atherosclerotic heart disease of [place] coronary artery with unspecified angina pectoris Is this a current diagnosis for this admission?: Yes Plan: Elevated troponins on admission but trended down subsequently. Denies any chest pain. ACS unlikely. History of coronary artery bypass. Continue beta-nando. Started atorvastatin given hyperlipidemia. (2) Ambulatory dysfunction Is this a current diagnosis for this admission?: Yes Plan: Weak in both lower extremities. Possibly deconditioned. Has severe osteoarthritis in left hip. No fractures noted on imaging. Physical and Occupational Therapy. Social work consult for potential rehab placement. (3) MARK (obstructive sleep apnea) Is this a current diagnosis for this admission?: Yes Plan: Patient states he was diagnosed with sleep apnea in the past but never received CPAP machine. Performed nocturnal pulse ox trend on Monday night which was essentially negative. However, I do not believe that this test was done properly and as such I will repeat nocturnal pulse ox trend tonight. If positive, start on nocturnal CPAP while in the hospital if patient goes to rehab. Outpatient sleep study. (4) Systolic heart failure Qualifiers: Heart failure chronicity: acute on chronic Qualified Code(s): I50.23 - Acute on chronic systolic (congestive) heart failure Is this a current diagnosis for this admission?: Yes Plan: Not much fluid overload. Echo last year showed EF of 35 to 40%. Has LifeVest on. He was missing the battery and arborer which were replaced yesterday by the thinking[employer]. Monitor on telemetry. Continue Entresto and Toprol-XL. Hold Lasix today given creatinine bump. Could potentially put on p.o. Lasix tomorrow. Echo today for EF reassessment. (5) Acute kidney injury superimposed on chronic kidney disease Is this a current diagnosis for this admission?: Yes Plan: Baseline seems to be 1.6-1.8. 2 on admission. Continue to monitor renal function. (6) Ventricular ectopy Is this a current diagnosis for this admission?: Yes Plan: Chronic and secondary to cardiomyopathy. Monitor on telemetry. Continue beta- nando. Has LifeVest on. (7) Obesity (BMI 30-39.9) Is this a current diagnosis for this admission?: Yes - Time Anticipated Discharge Disposition: [facility] Facility Anticipated Discharge Timeframe: within 36 hours
[2020-02-10] MEDS: METOPROLOL SUCCINATE 50 MG TAB.SR.24H PO SCH (12:01)
[2020-02-10] MEDS: SACUBITRIL/VALSARTAN 49 MG/51 MG TABLET PO SCH ×2 (12:02→22:27)
[2020-02-10] MEDS: CLOPIDOGREL BISULFATE 75 MG TABLET PO SCH (12:02)
[2020-02-10] MEDS: ASPIRIN 81 MG TABLET, ENT COATED PO SCH (12:02)
[2020-02-10] MEDS: FLUTICASONE NASAL SPRAY 50 MCG/SPRY 120 SPRAY/16 GM NASL SCH ×2 (14:57→22:27)
[2020-02-10] MEDS ORDERED: ONDANSETRON HCL INJ/PF 4 MG/2 ML SDV IV PRN (15:30)
[2020-02-10 16:56] LABS: VENOUS BLOOD BASE EXCESS -3.9 mmol/L; VENOUS BLOOD HCO3 19.3 mmol/L (20-32); VENOUS BLOOD PH 7.41 (7.30-7.42)
--- NOTE | 2020-02-10 19:46 | XCELERA REPORT ---
[address] [address] Transthoracic Echocardiogram Report Name: INES TURNER JR Age: 69 yrs Gender: Male : 1950 Patient Status: Inpatient Patient Location: [address] [place] [address] Study Date: 02/10/2020 10:41 AM Height: 69 in Weight: 228 lb BSA: 2.2 m2 Procedure: A complete two-dimensional transthoracic echocardiogram was performed (2D, M-mode, spectral and color flow Doppler). The study was technically difficult with many images being suboptimal in quality. Reason For Study: chf Ordering Physician: LUIS THOMAS Performed By: Thomas Ortiz Interpretation Summary LEFT VENTRICLE: LV Systolic function: LVEF is felt to be severely depressed best estimated being approximately 25-30%. LV Diastolic Function: Grade III diastolic dysfunction noted. Wall motion : Not all wall segment well visualized. Regional wall motion cannot be accurately commented upon. Left ventricular chamber size : is within normal limit. Left ventricular wall thickness : Seems WNL. INTERVENTRICULAR SEPTUM: no evidence of VSD noted. No asymmetric hypertrophy noted. RIGHT VENTRICLE: RV systolic function : Cannot be accurately commented upon. Right Ventricle Size : Cannot be accurately commented upon. LEFT ATRIUM size : Seems WNL. RIGHT ATRIUM size : is within normal limit. INTER ATRIAL SEPTUM : No definite atrial septal defect noted however a small PFO could be missed. AORTIC ROOT : seems to be within normal limits. Ascending aorta is not well visualized. INFERIOR VENA CAVA: was not well visualized. VALVES: MITRAL VALVE : Leaflets are mildly thickened. Mobility seems to be within normal limits. Mitral Regurgitation : Trace to mild mitral regurgitation is noted. Mitral Stenosis: No mitral stenosis noted. Mitral valve prolapse : none noted. AORTIC VALVE: seems to be trileaflet with thickening but adequate excursion. Aortic stenosis : No aortic stenosis noted. Aortic regurgitation : No aortic incompetence noted. TRICUSPID VALVE : mobility and structures within normal limit. Tricuspid stenosis : no tricuspid stenosis noted. Tricuspid regurgitation : Trace tricuspid regurgitation noted. Estimated RVSP : tricuspid jet envelope not well defined to measure RV systolic pressure accurately. PULMONARY VALVE : was not well visualized but no significant abnormalities suspected. Pulmonary stenosis : no significant pulmonary stenosis noted. Pulmonary regurgitation : no significant pulmonary regurgitation noted. MASSES AND THROMBUS : No definite intracardiac thrombus or masses are noted. PERICARDIUM: No pericardial effusion was noted. IMPRESSION : 1. Severely depressed LVEF best estimated at approximately 25 to 30% . 2. LV wall thickness seems WNL. 3. Grade II Diastolic Dysfunction noted. 4. Trace to mild mitral regurgitation noted. 5. Study was technically difficult therefore clinical correlation requested. MMode/2D Measurements & Calculations RVDd: 2.4 cm LVIDd: 5.2 cm FS: 9.8 % Ao root diam: 3.1 cm IVSd: 1.0 cm LVIDs: 4.7 cm EDV(Teich): 130.8 ml Ao root area: 7.4 cm2 LVPWd: 1.1 cm ESV(Teich): 103.0 ml LA dimension: 3.5 cm EF(Teich): 21.3 % Doppler Measurements & Calculations MV E max brandin: MV P1/2t max brandin: Ao V2 max: LV V1 max P.3 cm/sec 110.8 cm/sec 117.7 cm/sec 1.6 mmHg MV P1/2t: 45.5 msec Ao max PG: LV V1 max: MVA(P1/2t): 4.8 cm2 5.5 mmHg 63.7 cm/sec MV dec slope: 712.5 cm/sec2 MV dec time: 0.13 sec PA V2 max: MV P1/2t-pr_phl: 66.7 cm/sec 45.5 msec PA max P.8 mmHg : LUIS THOMAS Shyamal
[2020-02-10] MEDS: ATORVASTATIN CALCIUM 40 MG TABLET PO SCH (22:27)
[2020-02-11] MEDS: HEPARIN SOD (PORCINE) 5,000 UNIT/ML 1 ML VIAL SUBCUT SCH ×3 (05:17→21:30)
[2020-02-11 08:15] LABS: ANION GAP 13 (5-19); BLOOD UREA NITROGEN 55 mg/dL (7-20); CALCIUM 8.3 mg/dL (8.4-10.2); CARBON DIOXIDE 20 mmol/L (22-30); CHLORIDE 103 mmol/L (98-107); GLUCOSE 118 mg/dL (75-110); POTASSIUM 4.9 mmol/L (3.6-5.0)
[2020-02-11] MEDS ORDERED: ACETAMINOPHEN 325 MG TABLET PO PRN (08:26)
--- NOTE | 2020-02-11 08:56 | PDOC PROGRESS REPORT ---
Subjective Progress Note for:: 02/11/20 Subjective:: Patient states that he does not feel well this morning. No specific complaints. Denies shortness of breath. Reason For Visit: WEAKNESS,ELEVATED TROPONIN,CHF Physical Exam Vital Signs: Temp Pulse Resp BP Pulse Ox 101.7 F H 104 H 28 H 142/63 H 95 02/11/20 07:19 02/11/20 07:19 02/11/20 07:19 02/11/20 07:19 02/11/20 07:19 Pulse Oximeter Nocturnal Start: 02/08/20 13:55 Freq: RTQ4 Status: Complete Protocol: Document 02/09/20 04:00 LRO (Rec: 02/09/20 05:38 LRO [email or web address]) Nocturnal Pulse Oximetry Equipment Usage Equipment in Use Oxygen Delivery Method (includes room Room Air air) O2 Sat by Pulse Oximetry (92-100) 95 Continuous SpO2 Machine # 2 Pulse Oximeter Nocturnal Start: 02/10/20 11:39 Freq: RTQ4 Status: Active Protocol: Document 02/11/20 04:06 PMU (Rec: 02/11/20 05:06 PMU [email or web address]) Nocturnal Pulse Oximetry Equipment Usage Equipment in Use Oxygen Delivery Method (includes room Room Air air) O2 Sat by Pulse Oximetry (92-100) 93 Continuous SpO2 Machine # N2 Intake & Output 02/10/20 02/11/20 02/12/20 06:59 06:59 06:59 Intake Total 877 301 Output Total 1125 800 Balance -248 -499 Weight 102.4 kg 103.3 kg General appearance: PRESENT: no acute distress, cooperative, obese Head exam: PRESENT: atraumatic, normocephalic Eye exam: PRESENT: conjunctiva pink Mouth exam: PRESENT: moist, tongue midline Neck exam: ABSENT: JVD Respiratory exam: PRESENT: decreased breath sounds - Air entry diminished at bases bilaterally, symmetrical, tachypnea, unlabored. ABSENT: accessory muscle use, rales, rhonchi, wheezes Cardiovascular exam: PRESENT: irregular rhythm, +S1, +S2 Vascular exam: PRESENT: normal capillary refill GI/Abdominal exam: PRESENT: normal bowel sounds, soft. ABSENT: distended, tenderness Rectal exam: PRESENT: deferred Extremities exam: PRESENT: other - Trace - 1 mm pretibial edema bilaterally. ABSENT: calf tenderness Neurological exam: PRESENT: alert, awake, oriented to person, oriented to place, oriented to time, oriented to situation, CN II-XII grossly intact Psychiatric exam: ABSENT: agitated Skin exam: PRESENT: dry, normal color, warm Results Laboratory Results: 02/11/20 07:30 02/11/20 07:30 02/10/20 02/11/20 02/11/20 16:42 07:30 07:30 WBC Cancelled RBC Cancelled Hgb Cancelled Hct Cancelled MCV Cancelled MCH Cancelled MCHC Cancelled RDW Cancelled Plt Count Cancelled VBG pH 7.41 VBG pCO2 31.0 L VBG HCO3 19.3 L VBG Base Excess -3.9 Sodium 135.5 L Potassium 4.9 Chloride 103 Carbon Dioxide 20 L Anion Gap 13 BUN 55 H Creatinine 2.38 H Est GFR ( Amer) 33 L Glucose 118 H Calcium 8.3 L 02/08/20 02/08/20 09:49 13:11 Troponin I 0.160 0.155 NT-Pro-B Natriuret Pep 5540 H Impressions: Hip/Pelvis X-Ray 02/08/20 00:00 IMPRESSION: No acute fracture. Severe degenerative changes of the left hip. Knee X-Ray 02/08/20 00:00 IMPRESSION: NEGATIVE STUDY OF THE RIGHT KNEE. NO RADIOGRAPHIC EVIDENCE OF ACUTE INJURY. Chest X-Ray 02/08/20 09:53 IMPRESSION: No evidence of acute cardiopulmonary abnormality. Head CT 02/08/20 10:19 IMPRESSION: MILD CHRONIC CHANGES OF ATROPHY AND MICROVASCULAR ISCHEMIA. NO ACUTE PROCESS. EVIDENCE OF ACUTE STROKE: NO. Assessment and Plan - Diagnosis (1) Tachypnea Is this a current diagnosis for this admission?: Yes Plan: Patient remains tachypneic but denies as of breath SPO2 remains greater than 92% on room air Fever likely contributing however his tachypnea is disproportionate to his fever Breath sounds are clear doubt this is acute CHF worsening Check CXR (2) Coronary artery disease Qualifiers: Coronary Disease-Associated Artery/Lesion type: [place] artery [place] vs. transplanted heart: [place] heart Associated angina: with unspecified angina Qualified Code(s): I25.119 - Atherosclerotic heart disease of [place] coronary artery with unspecified angina pectoris Is this a current diagnosis for this admission?: Yes Plan: Patient has H/O CABG Patient denies chest pain Troponin slightly elevated Continue ASA 81 mg p.o. daily Continue clopidogrel 75 mg p.o. daily Continue metoprolol succinate 75 mg p.o. daily Continue atorvastatin 40 mg p.o. daily at bedtime (3) Acute on chronic combined systolic (congestive) and diastolic (congestive) heart failure Is this a current diagnosis for this admission?: Yes Plan: Patient appears euvolemic clinically 24-hour fluid balance -499 Daily weights do not correlate with volume status. Today he is at his admission weight, initially he was down 2.3 kg and has gained weight daily in spite of having slight negative fluid balance Diurese as needed Continues sacubitril/valsartan 49/51 mg p.o. every 12 hours (4) Ambulatory dysfunction Is this a current diagnosis for this admission?: Yes Plan: Patient does not have any focal neuro findings/weakness Continues to have bilateral LE weakness, possibly 2/2 deconditioning Continue PT/OT to evaluate for rehab placement Social work consult to facilitate above (5) MARK (obstructive sleep apnea) Is this a current diagnosis for this admission?: Yes Plan: Patient states he was diagnosed with sleep apnea in the past but never received CPAP machine Performed nocturnal pulse ox trend on Monday night which was essentially negative, the following night the patient did have an episode of desaturation to 86% at 19:00 and 89% at 20:00 Review of pulse ox trend overnight last night does not reveal desaturation below 93% on room air Continue CPAP at at bedtime I believe the patient would benefit from an outpatient sleep study (6) Acute kidney injury superimposed on chronic kidney disease Is this a current diagnosis for this admission?: Yes Plan: Historical baseline creatinine appears to be 1.6-1.8 Today renal function has declined from prior 2 days Hold diuretic today Avoid nephrotoxins Monitor (7) Ventricular ectopy Is this a current diagnosis for this admission?: Yes Plan: 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
[2020-02-11 09:12] LABS: HEMATOCRIT 47.1 % (37.9-51.0); MEAN CORPUSCULAR HEMOGLOBIN 30.9 pg (27.0-33.4); MEAN CORPUSCULAR HGB CONC 33.9 g/dL (32.0-36.0); MEAN CORPUSCULAR VOLUME 91 fl (80-97); PLATELET COUNT 166 10^3/uL (150-450); RED BLOOD COUNT 5.18 10^6/uL (4.35-5.55); RED CELL DISTRIBUTION WIDTH 15.3 % (11.5-14.0); WHITE BLOOD COUNT 4.9 10^3/uL (4.0-10.5)
--- NOTE | 2020-02-11 09:46 | RADIOLOGY REPORT (SQ) ---
EXAM DESCRIPTION: CHEST SINGLE VIEW IMAGES COMPLETED DATE/TIME: 02/11/2020 9:36 am REASON FOR STUDY: Tachypnea COMPARISON: AP view of the chest from 02/08/2020. EXAM PARAMETERS: NUMBER OF VIEWS: One view. TECHNIQUE: An AP view of the chest was obtained. RADIATION DOSE: NA LIMITATIONS: None. FINDINGS: LUNGS AND PLEURA: Acute asymmetric opacities in the inferior aspect of the right hemithora x. There is no pneumothorax. Evaluation of the right lateral costophrenic sulcus is limited. There is no sizable pleural effusion on the left side. MEDIASTINUM AND HILAR STRUCTURES: No mediastinal or hilar contour abnormality. HEART AND VASCULAR STRUCTURES: The cardiac silhouette and pulmonary vasculature are within normal hendrix its. BONES: No acute findings. HARDWARE: Sternotomy wires OTHER: No other finding. IMPRESSION: Acute asymmetric opacities in the inferior aspect of the right hemithorax. Correlation with clinical findings to exclude a pneumonia is recommended. TECHNICAL DOCUMENTATION: JOB ID: [id number] 2010 [employer]- All Rights Reserved Reading location - IP/workstation name: [email or web address]
[2020-02-11] MEDS: METOPROLOL SUCCINATE 50 MG TAB.SR.24H PO SCH (09:55)
[2020-02-11] MEDS: FLUTICASONE NASAL SPRAY 50 MCG/SPRY 120 SPRAY/16 GM NASL SCH ×2 (09:55→21:30)
[2020-02-11] MEDS: CLOPIDOGREL BISULFATE 75 MG TABLET PO SCH (09:55)
[2020-02-11] MEDS: ASPIRIN 81 MG TABLET, ENT COATED PO SCH (09:55)
[2020-02-11] MEDS: SACUBITRIL/VALSARTAN 49 MG/51 MG TABLET PO SCH ×2 (09:55→21:30)
--- NOTE | 2020-02-11 17:25 | PDOC CONSULTATION ---
Consultation Consult Date: 02/11/20 Provider Consulted: MODE REILLY Consult reason:: CHF History of Present Illness Admission Date/PCP: 02/08/20 13:52 [facility] Patient complains of: Dyspnea History of Present Illness: INES TURNER JR is a 69 year old male with the following problems 1. CAD 2. CABG 3. Systemic hypertension 4. Dyslipidemia 5. CHF chronic systolic 6. LV Dysfunction LEVF 25-30% (02/09/2019 ) Recent admission for ADCHF systolic. Was diuresed and was discharged. This time has presented with tachypnea. He is a PUI for possible COVID infection given current presentation. He is experiecing quite a bit of dyspnea and is unable to converse at ease. A full ROS and PMH could not be obtained. Family history could not be obtained. History as per chart and input from provider and nursing staff. Dr. Singer has seen patient in past Past Medical History Cardiac Medical History: Reports: Congestive Heart Failure, Coronary Artery Disease, Hypertension Denies: Atrial Fibrillation, DVT, Myocardial Infarction, Hyperlipidema, Pulmonary Embolism Pulmonary Medical History: Reports: Respiratory Failure, Sleep Apnea Denies: Asthma, Bronchitis, Chronic Obstructive Pulmonary Disease (COPD), P [place] Neurological Medical History: Denies: Seizures Endocrine Medical History: Denies: Diabetes Mellitus Type 1, Diabetes Mellitus Type 2, Hyperthyroidism, Hypothyroidism GI Medical History: Denies: Cirrhosis, Crohn's Disease, Gastroesophageal Reflux Disease, Hepatitis, Ulcerative Colitis Musculoskeltal Medical History: Denies: Arthritis, Gout Skin Medical History: Denies: Eczema, Psoriasis Psychiatric Medical History: Denies: Depression Hematology: Denies: Anemia, Bleeding Tendencies Past Surgical History Past Surgical History: Reports: Cardiac Catheterization, Coronary Artery Bypass Graft Social History Smoking Status: Former Smoker Last Time Smoked: 1999 Frequency of Alcohol Use: None Hx Recreational Drug Use: No Drugs: None Hx Prescription Drug Abuse: No - Advance Directive Resuscitation Status: Full Code Family History Family History: DM, Hypertension. denies: CAD, Malignancy Parental Family History Reviewed: No Children Family History Reviewed: NA Sibling(s) Family History Reviewed.: NA Medication/Allergy Home Medications: Aspirin [Aspirin 81 mg Chewable Tablet] 81 mg PO DAILY 01/29/20 Clopidogrel Bisulfate [Plavix 75 mg Tablet] 75 mg PO DAILY #30 tablet 02/03/20 Metoprolol Succinate [Toprol Xl 50 mg Tab.sr] 50 mg PO DAILY #30 tab.sr.24h 02/03/20 Sacubitril/Valsartan [Entresto 49 mg/51 mg Tablet] 1 tab PO Q12 #60 tablet 02/03/20 Allergies/Adverse Reactions: No Known Allergies Allergy (Verified 02/08/20 10:21) Review of Systems ROS unobtainable: Due to mental status, Other - Signficant respiratory distress. Patient on BIPAP Physical Exam Vital Signs: Temp Pulse Resp BP Pulse Ox 101.7 F H 83 28 H 142/63 H 93 02/11/20 10:39 02/11/20 14:00 02/11/20 07:19 02/11/20 07:19 02/11/20 08:43 Pulse Oximeter Nocturnal Start: 02/08/20 13:55 Freq: RTQ4 Status: Complete Protocol: Document 02/09/20 04:00 LRO (Rec: 02/09/20 05:38 LRO [email or web address]) Nocturnal Pulse Oximetry Equipment Usage Equipment in Use Oxygen Delivery Method (includes room Room Air air) O2 Sat by Pulse Oximetry (92-100) 95 Continuous SpO2 Machine # 2 Pulse Oximeter Nocturnal Start: 02/10/20 11:39 Freq: RTQ4 Status: Complete Protocol: Document 02/11/20 04:06 PMU (Rec: 02/11/20 05:06 PMU [email or web address]) Nocturnal Pulse Oximetry Equipment Usage Equipment in Use Oxygen Delivery Method (includes room Room Air air) O2 Sat by Pulse Oximetry (92-100) 93 Continuous SpO2 Machine # N2 Intake & Output 02/10/20 02/11/20 02/12/20 06:59 06:59 06:59 Intake Total 877 301 Output Total 1125 800 400 Balance -248 -499 -400 Weight 102.4 kg 103.3 kg General appearance: PRESENT: cooperative, mild distress, well-developed, well- nourished Eye exam: PRESENT: conjunctiva pink, EOMI Mouth exam: PRESENT: dry mucosa Respiratory exam: PRESENT: crackles, decreased breath sounds, symmetrical, tachypnea Cardiovascular exam: PRESENT: RRR, +S1, +S2 Pulses: PRESENT: normal radial pulses GI/Abdominal exam: PRESENT: soft Rectal exam: PRESENT: deferred Neurological exam: PRESENT: awake, oriented to person, oriented to place Psychiatric exam: PRESENT: appropriate affect Skin exam: PRESENT: dry, intact Results Laboratory Results: 02/11/20 08:47 02/11/20 07:30 02/11/20 02/11/20 02/11/20 07:30 07:30 08:47 WBC Cancelled 4.9 RBC Cancelled 5.18 Hgb Cancelled 16.0 D Hct Cancelled 47.1 MCV Cancelled 91 MCH Cancelled 30.9 MCHC Cancelled 33.9 RDW Cancelled 15.3 H Plt Count Cancelled 166 Sodium 135.5 L Potassium 4.9 Chloride 103 Carbon Dioxide 20 L Anion Gap 13 BUN 55 H Creatinine 2.38 H Est GFR ( Amer) 33 L Glucose 118 H Calcium 8.3 L 02/08/20 02/08/20 09:49 13:11 Troponin I 0.160 0.155 NT-Pro-B Natriuret Pep 5540 H EKG Comments: EKG 02/08/2020. Independently reviewed by me. ST 104 bpm JAVIER, PVC, LVH -borderline. FFO=649 ms Troponin -indeterminate BNP > 5000 LEVF 02/10/2020 LVEF 25-30% Impressions: Hip/Pelvis X-Ray 02/08/20 00:00 IMPRESSION: No acute fracture. Severe degenerative changes of the left hip. Knee X-Ray 02/08/20 00:00 IMPRESSION: NEGATIVE STUDY OF THE RIGHT KNEE. NO RADIOGRAPHIC EVIDENCE OF ACUTE INJURY. Head CT 02/08/20 10:19 IMPRESSION: MILD CHRONIC CHANGES OF ATROPHY AND MICROVASCULAR ISCHEMIA. NO ACUTE PROCESS. EVIDENCE OF ACUTE STROKE: NO. Chest X-Ray 02/11/20 00:00 IMPRESSION: Acute asymmetric opacities in the inferior aspect of the right hemithorax. Correlation with clinical findings to exclude a pneumonia is recommended. Assessment & Plan - Diagnosis (1) Acute on chronic combined systolic (congestive) and diastolic (congestive) heart failure Is this a current diagnosis for this admission?: Yes Plan: Acute decompensated systolic congestive heart failure His volume status is hard to gauge He may have a component of Volume overload; however he is quite tachypneic and his lung exam is not that wet He does require some maintenance diuretic given severe LV dysfunction Watch volume status Watch S. Cr Continue Sacubutril/Valsartan 49/51 Continue Metoprolol at current dose. (2) Elevated troponin Is this a current diagnosis for this admission?: Yes Plan: Probably due to CHF Unlikely due to ACS (3) Tachypnea Is this a current diagnosis for this admission?: Yes Plan: PUI for possible COVID Could be due to CHF as well Await COVID status PPE and isolation precautions per protocol (4) Coronary artery disease Qualifiers: Coronary Disease-Associated Artery/Lesion type: [place] artery [place] vs. transplanted heart: [place] heart Associated angina: with unspecified angina Qualified Code(s): I25.119 - Atherosclerotic heart disease of [place] coronary artery with unspecified angina pectoris Is this a current diagnosis for this admission?: Yes Plan: CAD CABG No ischemic symptoms presently Continue GDMT as feasible Continue ASA 81 mg dfaily Continue Clopidogrel 75 mg daily Continue Atorvastatin 40 mg daily Continue Metoprolol at current dose.
[2020-02-11] MEDS: ATORVASTATIN CALCIUM 40 MG TABLET PO SCH (21:30)
[2020-02-12] MEDS: HEPARIN SOD (PORCINE) 5,000 UNIT/ML 1 ML VIAL SUBCUT SCH ×3 (05:26→21:28)
[2020-02-12 06:34] LABS: ABSOLUTE LYMPHOCYTES (AUTO) 0.7 10^3/uL (0.5-4.7); ABSOLUTE MONOCYTES (AUTO) 0.3 10^3/uL (0.1-1.4); ABSOLUTE NEUT (AUTO) 4.2 10^3/uL (1.7-8.2); BASOPHILS % (AUTO) 0.1 % (0-2); HEMATOCRIT 47.3 % (37.9-51.0); HEMOGLOBIN 16.1 g/dL (13.5-17.0); LYMPHOCYTES % (AUTO) 13.9 % (13-45); MEAN CORPUSCULAR HEMOGLOBIN 30.9 pg (27.0-33.4); MEAN CORPUSCULAR VOLUME 91 fl (80-97); MONOCYTES % (AUTO) 6.3 % (3-13); PLATELET COUNT 156 10^3/uL (150-450); RED BLOOD COUNT 5.21 10^6/uL (4.35-5.55); RED CELL DISTRIBUTION WIDTH 15.3 % (11.5-14.0); SEGMENTED NEUTROPHILS % (AUTO) 79.7 % (42-78); TOTAL CELLS COUNTED % (AUTO) 100 %; WHITE BLOOD COUNT 5.3 10^3/uL (4.0-10.5)
[2020-02-12 07:03] LABS: ANION GAP 14 (5-19); BLOOD UREA NITROGEN 72 mg/dL (7-20); CALCIUM 8.3 mg/dL (8.4-10.2); CARBON DIOXIDE 16 mmol/L (22-30); CHLORIDE 107 mmol/L (98-107); GLUCOSE 117 mg/dL (75-110); POTASSIUM 5.2 mmol/L (3.6-5.0)
[2020-02-12] MEDS ORDERED: DOPAMINE HCL/DEXTROSE 5%-WATER 800 MG/250 ML RTUINJ IV ONE (08:16)
[2020-02-12] MEDS ORDERED: DEXAMETHASONE SOD PHOSPHATE INJ 4 MG/1 ML VIAL ONE (08:17)
[2020-02-12] MEDS ORDERED: DOPAMINE HCL/DEXTROSE 5%-WATER 800 MG/250 ML RTUINJ IV PRN (08:19)
[2020-02-12 08:21] LABS: ARTERIAL BLOOD BASE EXCESS -8.3 mmol/L; ARTERIAL BLOOD FIO2 4L; ARTERIAL BLOOD HCO3 14.1 mmol/L (20-24); ARTERIAL BLOOD PCO2 23.4 mmHg (35-45); ARTERIAL BLOOD PO2 79.7 mmHg (80-100); ARTERIAL BLOOD TOTAL CO2 14.9 mmol/L (23-27)
--- NOTE | 2020-02-12 08:24 | Progress Note ---
Provider Note Provider Note: Attempted to call to provide update on patient condition without success
--- NOTE | 2020-02-12 08:25 | PDOC PROGRESS REPORT ---
Subjective Progress Note for:: 02/12/20 Subjective:: Called by bedside RN to evaluate patient in acute respiratory distress. Upon arrival patient was on BiPAP with paradoxical breathing pattern noted. Reason For Visit: WEAKNESS,ELEVATED TROPONIN,CHF Physical Exam Vital Signs: Temp Pulse Resp BP Pulse Ox 98.3 F 94 20 86/62 L 95 02/12/20 04:21 02/12/20 04:21 02/12/20 04:21 02/12/20 04:21 02/12/20 04:21 Pulse Oximeter Nocturnal Start: 02/08/20 13:55 Freq: RTQ4 Status: Complete Protocol: Document 02/09/20 04:00 LRO (Rec: 02/09/20 05:38 LRO [id number]) Nocturnal Pulse Oximetry Equipment Usage Equipment in Use Oxygen Delivery Method (includes room Room Air air) O2 Sat by Pulse Oximetry (92-100) 95 Continuous SpO2 Machine # 2 Pulse Oximeter Nocturnal Start: 02/10/20 11:39 Freq: RTQ4 Status: Complete Protocol: Document 02/11/20 04:06 PMU (Rec: 02/11/20 05:06 PMU [email or web address]) Nocturnal Pulse Oximetry Equipment Usage Equipment in Use Oxygen Delivery Method (includes room Room Air air) O2 Sat by Pulse Oximetry (92-100) 93 Continuous SpO2 Machine # N2 Intake & Output 02/11/20 02/12/20 02/13/20 06:59 06:59 06:59 Intake Total 301 420 Output Total 800 1000 Balance -499 -580 Weight 103.3 kg 103.3 kg General appearance: PRESENT: obese, severe distress Head exam: PRESENT: atraumatic, normocephalic Eye exam: PRESENT: conjunctiva pink Neck exam: ABSENT: JVD Respiratory exam: PRESENT: accessory muscle use, decreased breath sounds - Entry diminished at bases bilaterally, tachypnea, other - Breath sounds coarse with grunting noted. ABSENT: unlabored Cardiovascular exam: PRESENT: irregular rhythm, +S1, +S2 Vascular exam: PRESENT: normal capillary refill GI/Abdominal exam: PRESENT: distended, hypoactive bowel sounds, soft. ABSENT: firm, guarding, rigid Rectal exam: PRESENT: deferred Neurological exam: PRESENT: awake. ABSENT: oriented to person, oriented to place, oriented to time, oriented to situation Psychiatric exam: PRESENT: anxious Skin exam: PRESENT: dry, normal color, warm Results Laboratory Results: 02/12/20 05:42 02/12/20 05:42 02/11/20 02/12/20 02/12/20 08:47 05:42 05:42 WBC 4.9 5.3 RBC 5.18 5.21 Hgb 16.0 D 16.1 Hct 47.1 47.3 MCV 91 91 MCH 30.9 30.9 MCHC 33.9 34.0 RDW 15.3 H 15.3 H Plt Count 166 156 Seg Neutrophils % 79.7 H Carbonic Acid HCO3/H2CO3 Ratio ABG pH ABG pCO2 ABG pO2 ABG HCO3 ABG O2 Saturation ABG Base Excess FiO2 Sodium 136.9 L Potassium 5.2 H Chloride 107 Carbon Dioxide 16 L Anion Gap 14 BUN 72 H Creatinine 2.62 H Est GFR ( Amer) 29 L Glucose 117 H Calcium 8.3 L Magnesium 2.4 H 02/12/20 08:00 WBC RBC Hgb Hct MCV MCH MCHC RDW Plt Count Seg Neutrophils % Carbonic Acid 0.70 L HCO3/H2CO3 Ratio 20:1 ABG pH 7.40 ABG pCO2 23.4 L ABG pO2 79.7 L ABG HCO3 14.1 L ABG O2 Saturation 96.0 ABG Base Excess -8.3 FiO2 4L Sodium Potassium Chloride Carbon Dioxide Anion Gap BUN Creatinine Est GFR ( Amer) Glucose Calcium Magnesium 02/08/20 02/08/20 09:49 13:11 Troponin I 0.160 0.155 NT-Pro-B Natriuret Pep 5540 H Impressions: Hip/Pelvis X-Ray 02/08/20 00:00 IMPRESSION: No acute fracture. Severe degenerative changes of the left hip. Knee X-Ray 02/08/20 00:00 IMPRESSION: NEGATIVE STUDY OF THE RIGHT KNEE. NO RADIOGRAPHIC EVIDENCE OF ACUTE INJURY. Head CT 02/08/20 10:19 IMPRESSION: MILD CHRONIC CHANGES OF ATROPHY AND MICROVASCULAR ISCHEMIA. NO ACUTE PROCESS. EVIDENCE OF ACUTE STROKE: NO. Chest X-Ray 02/11/20 00:00 IMPRESSION: Acute asymmetric opacities in the inferior aspect of the right hemithorax. Correlation with clinical findings to exclude a pneumonia is recommended. Assessment and Plan - Diagnosis (1) Acute respiratory failure due to COVID-19 Is this a current diagnosis for this admission?: Yes Plan: Patient with acute respiratory distress this a.m. according to bedside RN the patient had a relatively comfortable night however this morning when she found the patient he was in acute distress Consult critical care Transfer patient to ICU for endotracheal intubation, ventilatory support, and ongoing critical care management Dexamethasone 6 mg IV x1 given Start dexamethasone 6 mg IV daily Patient will need NG tube in order to receive medications, defer to ICU service Start ascorbic acid 500 mg p.o. twice daily Start zinc sulfate 220 mg p.o. daily Start vitamin D 2000 units p.o. daily Start melatonin 3 mg p.o. daily at at bedtime Start famotidine 20 mg IV daily Continue heparin 5000 units subcutaneous every 8 hours, heparin chosen 2/2 CKD/PRERNA Patient already on atorvastatin 40 mg p.o. daily at at bedtime, continue Patient may be candidate for remdesivir and/or convalescent plasma however will defer to ICU team as patient is being transferred to their service (2) Hypotension Is this a current diagnosis for this admission?: Yes Plan: Start NS wide open Start dopamine at 5 mcg/kg/min and titrate as needed for map of 65 (3) Hyperkalemia Is this a current diagnosis for this admission?: Yes Plan: Early in the morning prior to examining patient Kayexalate 15 g p.o. was ordered for patient's potassium of 5.2 however upon evaluation patient was not able to take p.o. Insulin 10 units IV x1 given D50W 25 g IV x1 given Calcium gluconate 1 g IV x1 given, patient does not have central access and per protocol can only receive calcium gluconate in a PIV Repeat BMP at 12 noon (4) Coronary artery disease Qualifiers: Coronary Disease-Associated Artery/Lesion type: [place] artery [place] vs. transplanted heart: [place] heart Associated angina: with unspecified angina Qualified Code(s): I25.119 - Atherosclerotic heart disease of [place] coronary artery with unspecified angina pectoris Is this a current diagnosis for this admission?: Yes Plan: Cardiology input appreciated Patient has H/O CABG Troponin slightly elevated, per cardiology this is not likely to represent acute coronary syndrome Continue ASA 81 mg p.o. daily Continue clopidogrel 75 mg p.o. daily Metoprolol succinate stopped 2/2 hypotension Continue atorvastatin 40 mg p.o. daily at bedtime (5) Acute on chronic combined systolic (congestive) and diastolic (congestive) heart failure Is this a current diagnosis for this admission?: Yes Plan: Patient continues to appear euvolemic clinically 24-hour fluid balance -580 Daily weights do not correlate with volume status. Today he is at his admission weight, initially he was down 2.3 kg and has gained weight daily in spite of having slight negative fluid balance At this time patient will not tolerate diuretic 2/2 hypotension Sacubitril/valsartan stopped (6) MARK (obstructive sleep apnea) Is this a current diagnosis for this admission?: Yes Plan: Patient transferred to ICU for endotracheal intubation and ventilatory support I believe the patient would benefit from an outpatient sleep study he survives this acute event (7) Acute kidney injury superimposed on chronic kidney disease Is this a current diagnosis for this admission?: Yes Plan: Historical baseline creatinine appears to be 1.6-1.8 Renal function continues to decline Continue to avoid nephrotoxins as able Monitor (8) Ventricular ectopy Is this a current diagnosis for this admission?: Yes Plan: 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 Critical care time involved bedside assessment/evaluation and bedside treatment - Time Time Spent with patient: 35 or more minutes Medications reviewed and adjusted accordingly: Yes Anticipated Discharge Disposition: TBD Anticipated Discharge Timeframe: TBD
[2020-02-12] MEDS ORDERED: DEXTROSE 50%-WATER 25 GM/50 ML DISP.SYRIN IV ONE ×2 (08:34→08:40)
[2020-02-12] MEDS ORDERED: CALCIUM GLUCONATE 1000 MG/10 ML INJ IV ONE ×3 (08:34→12:00)
[2020-02-12] MEDS ORDERED: INSULIN LISPRO 100 UNIT/ML 3 ML VIAL ONE (08:35)
[2020-02-12] MEDS ORDERED: INSULIN REG, HUMAN 100 UNIT/ML 3 ML VIAL (PYX) IV ONE (08:41)
[2020-02-12] MEDS ORDERED: ATROPINE SULFATE INJ 1 MG/10 ML DISP.SYRIN IV ONE (08:53)
[2020-02-12] MEDS ORDERED: EPINEPHRINE INJ/PF 1 MG/1 ML AMPULE ONE (08:53)
[2020-02-12] MEDS ORDERED: PROPOFOL 1,000 MG/100 ML INFUS..BTL IV ONE (08:59)
[2020-02-12] MEDS ORDERED: SODIUM POLYSTYRENE SULFONATE 15 GM/60 ML PO ONE (09:00)
[2020-02-12] MEDS ORDERED: DEXMEDETOMIDINE IN 0.9 % NACL 400 MCG/100 ML RTUPB IV ONE (09:01)
[2020-02-12] MEDS ORDERED: ETOMIDATE INJ/PF 20 MG/10 ML SDV IV ONE ×2 (09:10→09:19)
[2020-02-12] MEDS: DEXMEDETOMIDINE IN NS 400 MCG/100 ML RTUPB IV PRN ×4 (09:20→21:27)
[2020-02-12] MEDS ORDERED: NOREPINEPHRINE BITARTRATE INJ/PF 4 MG/4 ML SDV IV ONE (09:29)
[2020-02-12] MEDS ORDERED: CALCIUM GLUCONATE 1 GM/NS 50 ML RTU IV ONE ×2 (09:30→12:30)
--- NOTE | 2020-02-12 09:52 | Progress Note ---
Provider Note Provider Note: I have attempted multiple times to contact patient's Tania in order to update her on patient's condition without success. Patient is currently in the ICU and intubated. We will continue to attempt to contact
[2020-02-12] MEDS ORDERED: ZINC SULFATE 220 MG CAPSULE PO SCH (10:00)
[2020-02-12] MEDS ORDERED: DEXAMETHASONE SOD PHOSPHATE INJ 4 MG/1 ML VIAL IV SCH (10:00)
[2020-02-12] MEDS ORDERED: CHOLECALCIFEROL (D3) 1,000 UNIT (25 MCG) TABLET PO SCH (10:00)
[2020-02-12] MEDS ORDERED: ASCORBIC ACID 500 MG TABLET PO SCH (10:00)
[2020-02-12] MEDS ORDERED: FAMOTIDINE 20 MG TABLET PO SCH (10:00)
--- NOTE | 2020-02-12 10:17 | RADIOLOGY REPORT (SQ) ---
EXAM DESCRIPTION: CHEST SINGLE VIEW IMAGES COMPLETED DATE/TIME: 02/12/2020 10:03 am REASON FOR STUDY: Intubation, central lione and NG placed. COMPARISON: 02/11/2020 and 02/08/2020 EXAM PARAMETERS: NUMBER OF VIEWS: Two views TECHNIQUE: Single frontal radiographic view of the chest acquired. RADIATION DOSE: NA LIMITATIONS: None. FINDINGS: LUNGS AND PLEURA: Bibasilar airspace opacities are again demonstrated. No pleural effusio n or pneumothorax demonstrated. MEDIASTINUM AND HILAR STRUCTURES: Stable peer HEART AND VASCULAR STRUCTURES: Stable. BONES: No acute findings. HARDWARE: Interval intubation with the endotracheal tube terminating approximately 1.6 cm cranial to the kera. Interval placement of an enteric tube which terminates subdiaphragmatically out of the i jorge field of view. Interval placement of a right cervical central vascular access catheter which t erminates in the region of the right atrium. Midline surgical changes. OTHER: No other significant finding. IMPRESSION: 1. Re- demonstration of bibasilar airspace opacities 2. Interval placement of endotracheal tube, enteric tube, and right cervical vascular access cathete r without evidence of complication. TECHNICAL DOCUMENTATION: JOB ID: [id number] 2010 [employer]- All Rights Reserved Reading location - IP/workstation name: [email or web address]
[2020-02-12] MEDS ORDERED: DEXTROSE 5%-WATER 250 ML with NOREPINEPHRINE BITARTRATE 4 MG IV PRN ×2 (10:45)
[2020-02-12] MEDS ORDERED: PHARMACY COMMUNICATION ORDER MC NR (10:45)
[2020-02-12] MEDS ORDERED: NORMAL SALINE 1000 ML 1,000 ML IV ONE (10:46)
--- NOTE | 2020-02-12 11:09 | CRITICAL CARE ADMISSION REPORT ---
HPI Date:: 02/12/20 Time:: 09:30 Reason for ICU Reason:: Acute respiratory distress and need for intubation Admission Date/Time & PCP: Admission Date/Time: 02/08/20 13:52 Primary Care Provider: [facility] History obtained from:: Records and Ronal Motta. - Diagnosis/Plan (1) Acute respiratory failure due to COVID-19 Is this a current diagnosis for this admission?: Yes Plan: On decadron and now hydroxychloroquine. Age of 69 and intubated with major comorbidities leaves his prognosis with a high mortality rate. (2) Tachypnea Is this a current diagnosis for this admission?: Yes Plan: Patient's WOB revealed a RR 45. Despite a relatively normal ABG, this degree of tachypnea wont be sustained. He needs intubation. (3) Acute on chronic diastolic CHF (congestive heart failure) Is this a current diagnosis for this admission?: Yes Plan: His CHF has been treated but with positive pressure he is needing more fluid. (4) Coronary artery disease Qualifiers: Coronary Disease-Associated Artery/Lesion type: [place] artery [place] vs. transplanted heart: [place] heart Associated angina: with unspecified angina Qualified Code(s): I25.119 - Atherosclerotic heart disease of [place] coronary artery with unspecified angina pectoris Is this a current diagnosis for this admission?: Yes Plan: Not active at this time. (5) Elevated brain natriuretic peptide (BNP) level Is this a current diagnosis for this admission?: Yes Plan: Last level 5500. With COVID, intubation his BNP is hard to interpret. (6) MARK (obstructive sleep apnea) Is this a current diagnosis for this admission?: Yes Plan: With intubation this is for now not an issue. (7) Obesity (BMI 30-39.9) Is this a current diagnosis for this admission?: Yes Plan: Chronic (8) Stage III chronic kidney disease Is this a current diagnosis for this admission?: Yes Plan: His CR is now 2.6 and GFR 24. This is acutely worse but not volume overloaded, hyperkalemic or acidotic. Plan Summary: Keep intubated for now, hydroychloroquine for severe disease. Decadron. Not in ARDS at this time. Past Medical History Cardiac Medical History: Reports: Congestive Heart Failure, Coronary Artery Disease, Hypertension Denies: Atrial Fibrillation, DVT, Myocardial Infarction, Hyperlipidema, Pulmonary Embolism Pulmonary Medical History: Reports: Respiratory Failure, Sleep Apnea Denies: Asthma, Bronchitis, Chronic Obstructive Pulmonary Disease (COPD), Pneumonia Neurological Medical History: Denies: Seizures Endocrine Medical History: Denies: Diabetes Mellitus Type 1, Diabetes Mellitus Type 2, Hyperthyroidism, Hypothyroidism GI Medical History: Denies: Cirrhosis, Crohn's Disease, Gastroesophageal Reflux Disease, Hepatitis, Ulcerative Colitis Musculoskeltal Medical History: Denies: Arthritis, Gout Skin Medical History: Denies: Eczema, Psoriasis Psychiatric Medical History: Denies: Depression Hematology: Denies: Anemia, Bleeding Tendencies Past Surgical History Past Surgical History: Reports: Cardiac Catheterization, Coronary Artery Bypass Graft Social/Family History - Social History Smoking Status: Former Smoker Last Time Smoked: 1999 Frequency of Alcohol Use: None Hx Recreational Drug Use: No Drugs: None Hx Prescription Drug Abuse: No - Medication/Allergies Home Medications: Aspirin [Aspirin 81 mg Chewable Tablet] 81 mg PO DAILY 01/29/20 Clopidogrel Bisulfate [Plavix 75 mg Tablet] 75 mg PO DAILY #30 tablet 02/03/20 Metoprolol Succinate [Toprol Xl 50 mg Tab.sr] 50 mg PO DAILY #30 tab.sr.24h 02/03/20 Sacubitril/Valsartan [Entresto 49 mg/51 mg Tablet] 1 tab PO Q12 #60 tablet 02/03/20 Allergies/Adverse Reactions: No Known Allergies Allergy (Verified 02/08/20 10:21) Review of Systems ROS unobtainable: Due to endotracheal tube, Due to mental status Physical Exam Vital Signs: Temp Pulse Resp BP Pulse Ox 98.3 F 89 20 86/62 L 96 02/12/20 10:00 02/12/20 07:00 02/12/20 04:21 02/12/20 04:21 02/12/20 09:48 Pulse Oximeter Nocturnal Start: 02/08/20 13:55 Freq: RTQ4 Status: Complete Protocol: Document 02/09/20 04:00 LRO (Rec: 02/09/20 05:38 LRO [email or web address]) Nocturnal Pulse Oximetry Equipment Usage Equipment in Use Oxygen Delivery Method (includes room Room Air air) O2 Sat by Pulse Oximetry (92-100) 95 Continuous SpO2 Machine # 2 Pulse Oximeter Nocturnal Start: 02/10/20 11:39 Freq: RTQ4 Status: Complete Protocol: Document 02/11/20 04:06 PMU (Rec: 02/11/20 05:06 PMU [email or web address]) Nocturnal Pulse Oximetry Equipment Usage Equipment in Use Oxygen Delivery Method (includes room Room Air air) O2 Sat by Pulse Oximetry (92-100) 93 Continuous SpO2 Machine # N2 Intake & Output 02/11/20 02/12/20 02/13/20 06:59 06:59 06:59 Intake Total 301 420 Output Total 800 1000 Balance -499 -580 Weight 103.3 kg 103.3 kg Weight/Height Weight 103.3 kg Height 5 ft 9 in General appearance: PRESENT: mild distress, morbidly obese Head exam: PRESENT: atraumatic, normocephalic Eye exam: PRESENT: conjunctiva pink, EOMI, PERRLA. ABSENT: scleral icterus Ear exam: PRESENT: normal external ear exam Mouth exam: PRESENT: moist, tongue midline Respiratory exam: PRESENT: accessory muscle use, crackles, retraction, rhonchi, tachypnea, wheezes Cardiovascular exam: PRESENT: tachycardia GI/Abdominal exam: PRESENT: soft, other - Small umbilical hernia Rectal exam: PRESENT: deferred Gentrourinary exam: PRESENT: indwelling catheter Extremities exam: PRESENT: full ROM. ABSENT: calf tenderness, clubbing, pedal edema Musculoskeletal exam: PRESENT: normal inspection Neurological exam: PRESENT: altered, awake, CN II-XII grossly intact, other - Sedated now Skin exam: PRESENT: dry, intact, warm. ABSENT: cyanosis, rash Tubes/Lines: PRESENT: Endotracheal Tube, Central Line, Nasogastic Tube Laboratory/Radiographs Laboratory Results: 02/12/20 05:42 02/12/20 05:42 02/11/20 02/12/20 02/12/20 08:47 05:42 05:42 WBC 4.9 5.3 RBC 5.18 5.21 Hgb 16.0 D 16.1 Hct 47.1 47.3 MCV 91 91 MCH 30.9 30.9 MCHC 33.9 34.0 RDW 15.3 H 15.3 H Plt Count 166 156 Seg Neutrophils % 79.7 H Carbonic Acid HCO3/H2CO3 Ratio ABG pH ABG pCO2 ABG pO2 ABG HCO3 ABG O2 Saturation ABG Base Excess FiO2 Sodium 136.9 L Potassium 5.2 H Chloride 107 Carbon Dioxide 16 L Anion Gap 14 BUN 72 H Creatinine 2.62 H Est GFR ( Amer) 29 L Glucose 117 H Calcium 8.3 L Magnesium 2.4 H 02/12/20 08:00 WBC RBC Hgb Hct MCV MCH MCHC RDW Plt Count Seg Neutrophils % Carbonic Acid 0.70 L HCO3/H2CO3 Ratio 20:1 ABG pH 7.40 ABG pCO2 23.4 L ABG pO2 79.7 L ABG HCO3 14.1 L ABG O2 Saturation 96.0 ABG Base Excess -8.3 FiO2 4L Sodium Potassium Chloride Carbon Dioxide Anion Gap BUN Creatinine Est GFR ( Amer) Glucose Calcium Magnesium 02/08/20 02/08/20 09:49 13:11 Troponin I 0.160 0.155 NT-Pro-B Natriuret Pep 5540 H Impressions: Hip/Pelvis X-Ray 02/08/20 00:00 IMPRESSION: No acute fracture. Severe degenerative changes of the left hip. Knee X-Ray 02/08/20 00:00 IMPRESSION: NEGATIVE STUDY OF THE RIGHT KNEE. NO RADIOGRAPHIC EVIDENCE OF ACUTE INJURY. Head CT 02/08/20 10:19 IMPRESSION: MILD CHRONIC CHANGES OF ATROPHY AND MICROVASCULAR ISCHEMIA. NO ACUTE PROCESS. EVIDENCE OF ACUTE STROKE: NO. Chest X-Ray 02/12/20 00:00 IMPRESSION: 1. Re- demonstration of bibasilar airspace opacities 2. Interval placement of endotracheal tube, enteric tube, and right cervical vascular access catheter without evidence of complication. All labs, radiographs, diagnostic studies and EKGs were personally reviewed: Yes In addition, reports of radiographic and diagnostic studies were read: Yes Critical Time Critical Time (minutes): 45 -: The care of a critically ill patient is dynamic. This note represents a static moment in the admission process. Orders and treatments may be given simultaneously and urgently, and time is not dealer compliance representative of the treatment process. This patient requires Critical Care secondary to life threatening organ or limb dysfunction. Without Critical Care services, the patient is at risk for increased mortality and morbidity.
--- NOTE | 2020-02-12 11:11 | Operative Report ---
Bedside Procedure - History of Present Illness History of Present Illness: INES TURNER JR is a 69 year old male with the following problems 1. CAD 2. CABG 3. Systemic hypertension 4. Dyslipidemia 5. CHF chronic systolic 6. LV Dysfunction LEVF 25-30% (02/09/2019 ) Recent admission for ADCHF systolic. Was diuresed and was discharged. This time has presented with tachypnea. He is a PUI for possible COVID infection given current presentation. He is experiecing quite a bit of dyspnea and is unable to converse at ease. A full ROS and PMH could not be obtained. Family history could not be obtained. History as per chart and input from provider and nursing staff. Dr. Singer has seen patient in past Indication for Procedure: Need for IV access, need for pressors. Date: 02/12/20 Provider: JAIMEE CARVER - Central Line Right Internal jugular Time completed: 10:00 Consent obtained: No - Pt obtunded not available, emergency Central line pre-insertion: Sterile PPE donned, Chloraprep applied, Sterile drapes applied Central line lumen type: Triple Ultrasound guided: No Line secured with sutures: Yes Central line post-insertion: Blood return from lumens, Biopatch applied, Sutured, Sterile dressing applied, Position confirmed w/ CXR Number of attempts: 1 Complications: No
--- NOTE | 2020-02-12 11:11 | Progress Note ---
Provider Note Provider Note: Patient intubated fairly easily with #8 ETT and glidescope.
[2020-02-12] MEDS: NORMAL SALINE 1000 ML 1,000 ML IV PRN ×2 (11:30→18:20)
[2020-02-12] MEDS ORDERED: ACETAMINOPHEN 325 MG TABLET NG PRN (11:30)
[2020-02-12] MEDS ORDERED: MAG HYDROX/AL HYDROX/SIMETH SUSP 30 ML UDCUP NG PRN (11:30)
[2020-02-12] MEDS: FLUTICASONE NASAL SPRAY 50 MCG/SPRY 120 SPRAY/16 GM NASL SCH ×2 (11:51→21:29)
[2020-02-12] MEDS: ASPIRIN 81 MG TABLET, ENT COATED PO SCH (11:52)
[2020-02-12] MEDS: CLOPIDOGREL BISULFATE 75 MG TABLET PO SCH (11:52)
[2020-02-12] MEDS: DEXAMETHASONE SOD PHOSPHATE INJ 4 MG/1 ML VIAL IV SCH ×3 (12:16→23:35)
[2020-02-12] MEDS: FAMOTIDINE INJ/PF 20 MG/2 ML SDV IV SCH ×2 (12:26→21:28)
[2020-02-12] MEDS ORDERED: CALCIUM GLUC IN NACL, ISO-OSM 1 GM/50 ML RTUPB IV ONE (12:27)
[2020-02-12] MEDS: HYDROXYCHLOROQUINE SULFATE 200 MG TABLET NG SCH ×2 (12:28→17:49)
[2020-02-12 13:35] LABS: ARTERIAL BLOOD BASE EXCESS -11.4 mmol/L; ARTERIAL BLOOD H2CO3 0.92 mmol/L (1.05-1.35); ARTERIAL BLOOD HCO3 13.9 mmol/L (20-24); ARTERIAL BLOOD O2 SATURATION 99.5 % (94-98); ARTERIAL BLOOD PCO2 30.6 mmHg (35-45); ARTERIAL BLOOD PH 7.28 (7.35-7.45); ARTERIAL BLOOD PO2 240.9 mmHg (80-100); ARTERIAL BLOOD TOTAL CO2 14.9 mmol/L (23-27)
[2020-02-12 13:38] LABS: ARTERIAL BLOOD FIO2 100%
[2020-02-12 14:12] LABS: ANION GAP 12 (5-19); BLOOD UREA NITROGEN 72 mg/dL (7-20); CALCIUM 7.9 mg/dL (8.4-10.2); CARBON DIOXIDE 17 mmol/L (22-30); CHLORIDE 108 mmol/L (98-107); GLUCOSE 233 mg/dL (75-110); POTASSIUM 5.3 mmol/L (3.6-5.0); TRIGLYCERIDES 170 mg/dL (<150)
[2020-02-12] MEDS: ASCORBIC ACID 500 MG TABLET NG SCH (17:49)
[2020-02-12] MEDS: ATORVASTATIN CALCIUM 40 MG TABLET NG SCH (21:28)
[2020-02-12] MEDS: FENTANYL CITRATE INJ/PF 100 MCG/2 ML AMPUL IV PRN ×2 (21:29→23:31)
[2020-02-12] MEDS: MELATONIN 3 MG TABLET NG SCH (21:29)
[2020-02-12] MEDS ORDERED: SACUBITRIL/VALSARTAN 49 MG/51 MG TABLET PO SCH (22:00)
[2020-02-12 22:54] LABS: ARTERIAL BLOOD BASE EXCESS -11.4 mmol/L; ARTERIAL BLOOD H2CO3 0.64 mmol/L (1.05-1.35); ARTERIAL BLOOD HCO3 11.5 mmol/L (20-24); ARTERIAL BLOOD O2 SATURATION 94.3 % (94-98); ARTERIAL BLOOD PCO2 21.1 mmHg (35-45); ARTERIAL BLOOD PH 7.35 (7.35-7.45); ARTERIAL BLOOD PO2 72.1 mmHg (80-100); ARTERIAL BLOOD TOTAL CO2 12.1 mmol/L (23-27)
[2020-02-12 22:56] LABS: ARTERIAL BLOOD FIO2 80%
[2020-02-12 23:08] LABS: ANION GAP 10 (5-19); BLOOD UREA NITROGEN 69 mg/dL (7-20); CALCIUM 7.6 mg/dL (8.4-10.2); CARBON DIOXIDE 15 mmol/L (22-30); CHLORIDE 113 mmol/L (98-107); GLUCOSE 196 mg/dL (75-110); POTASSIUM 4.9 mmol/L (3.6-5.0)
[2020-02-12 23:11] LABS: ABSOLUTE LYMPHOCYTES (AUTO) 0.3 10^3/uL (0.5-4.7); ABSOLUTE MONOCYTES (AUTO) 0.1 10^3/uL (0.1-1.4); ABSOLUTE NEUT (AUTO) 5.4 10^3/uL (1.7-8.2); BASOPHILS % (AUTO) 0.2 % (0-2); HEMATOCRIT 45.4 % (37.9-51.0); HEMOGLOBIN 15.3 g/dL (13.5-17.0); LYMPHOCYTES % (AUTO) 5.4 % (13-45); MEAN CORPUSCULAR HEMOGLOBIN 31.1 pg (27.0-33.4); MEAN CORPUSCULAR HGB CONC 33.7 g/dL (32.0-36.0); MEAN CORPUSCULAR VOLUME 92 fl (80-97); MONOCYTES % (AUTO) 1.9 % (3-13); PLATELET COUNT 128 10^3/uL (150-450); RED BLOOD COUNT 4.92 10^6/uL (4.35-5.55); RED CELL DISTRIBUTION WIDTH 15.5 % (11.5-14.0); SEGMENTED NEUTROPHILS % (AUTO) 92.5 % (42-78); TOTAL CELLS COUNTED % (AUTO) 100 %; WHITE BLOOD COUNT 5.8 10^3/uL (4.0-10.5)
[2020-02-13] MEDS: DEXMEDETOMIDINE IN NS 400 MCG/100 ML RTUPB IV PRN ×5 (00:57→20:34)
[2020-02-13] MEDS: NORMAL SALINE 1000 ML 1,000 ML IV PRN ×4 (02:38→23:56)
[2020-02-13 04:36] LABS: ARTERIAL BLOOD BASE EXCESS -13.6 mmol/L; ARTERIAL BLOOD H2CO3 0.68 mmol/L (1.05-1.35); ARTERIAL BLOOD HCO3 10.7 mmol/L (20-24); ARTERIAL BLOOD PCO2 22.7 mmHg (35-45); ARTERIAL BLOOD PH 7.29 (7.35-7.45); ARTERIAL BLOOD PO2 88.5 mmHg (80-100); ARTERIAL BLOOD TOTAL CO2 11.4 mmol/L (23-27)
[2020-02-13 04:39] LABS: ARTERIAL BLOOD FIO2 80%
[2020-02-13 05:23] LABS: ANION GAP 10 (5-19); BLOOD UREA NITROGEN 67 mg/dL (7-20); CALCIUM 7.7 mg/dL (8.4-10.2); CARBON DIOXIDE 15 mmol/L (22-30); CHLORIDE 115 mmol/L (98-107); GLUCOSE 209 mg/dL (75-110); POTASSIUM 4.8 mmol/L (3.6-5.0)
[2020-02-13 05:41] LABS: C-REACTIVE PROTEIN 142.5 mg/L (<10.0)
[2020-02-13] MEDS: HEPARIN SOD (PORCINE) 5,000 UNIT/ML 1 ML VIAL SUBCUT SCH ×3 (06:00→21:41)
[2020-02-13] MEDS ORDERED: DEXAMETHASONE SOD PHOS INJ 10 MG/1 ML VIAL IV SCH (06:00)
[2020-02-13] MEDS: DEXAMETHASONE SOD PHOSPHATE INJ 4 MG/1 ML VIAL IV SCH ×4 (06:00→23:56)
--- NOTE | 2020-02-13 08:14 | RADIOLOGY REPORT (SQ) ---
EXAM DESCRIPTION: CHEST SINGLE VIEW IMAGES COMPLETED DATE/TIME: 02/13/2020 5:55 am REASON FOR STUDY: vent COMPARISON: 02/11/2020 and 02/08/2020 EXAM PARAMETERS: NUMBER OF VIEWS: One view. TECHNIQUE: Single frontal radiographic view of the chest acquired. RADIATION DOSE: NA LIMITATIONS: None. FINDINGS: LUNGS AND PLEURA: Progressive airspace opacities involving the right lower and right middl e lobes. New small peripheral focal consolidation involving the left lower lobe superimposed on diff use airspace opacities. Likely small right-sided pleural effusion. No pneumothorax. MEDIASTINUM AND HILAR STRUCTURES: Stable. HEART AND VASCULAR STRUCTURES: Mild cardiomegaly with central vascular congestion. BONES: No acute findings. HARDWARE: Endotracheal tube, enteric tube, and right cervical vascular access catheter are stable in position. Midline surgical changes. Cardiac loop recorder. OTHER: No other significant finding. IMPRESSION: 1. While constellation of findings may represent worsening cardiac function, given the asymmetry of pulmonary findings, infectious etiology is not excluded. 2. Stable lines and tubes. TECHNICAL DOCUMENTATION: JOB ID: [id number] 2010 [employer]- All Rights Reserved Reading location - IP/workstation name: [email or web address]
--- NOTE | 2020-02-13 08:49 | PDOC CRITICAL CARE PROG REPORT ---
General Date:: 02/13/20 ICU Day:: 2 Ventilator Day:: 2 Hospital Day:: 5 Resuscitation Status: Full Code Events in the past 12 to 24 Hours:: Intubated and coming down on FiO2. Review of systems relevant to events:: Pulmonary, CV Reason for ICU Addmission:: Acute respiratory distress and need for intubation - Medications: Medications reviewed and adjusted accordingly: Yes Vasopressors:: Levophed Sedation:: Precedex. Physical Exam Vital Signs: Temp Pulse Resp BP Pulse Ox 96.3 F L 88 26 H 124/68 95 02/13/20 06:00 02/13/20 02:00 02/13/20 04:27 02/13/20 04:27 02/13/20 04:27 Pulse Oximeter Nocturnal Start: 02/08/20 13:55 Freq: RTQ4 Status: Complete Protocol: Document 02/09/20 04:00 LRO (Rec: 02/09/20 05:38 LRO [email or web address]) Nocturnal Pulse Oximetry Equipment Usage Equipment in Use Oxygen Delivery Method (includes room Room Air air) O2 Sat by Pulse Oximetry (92-100) 95 Continuous SpO2 Machine # 2 Pulse Oximeter Nocturnal Start: 02/10/20 11:39 Freq: RTQ4 Status: Complete Protocol: Document 02/11/20 04:06 PMU (Rec: 02/11/20 05:06 PMU [email or web address]) Nocturnal Pulse Oximetry Equipment Usage Equipment in Use Oxygen Delivery Method (includes room Room Air air) O2 Sat by Pulse Oximetry (92-100) 93 Continuous SpO2 Machine # N2 Intake & Output 02/12/20 02/13/20 02/14/20 06:59 06:59 06:59 Intake Total 420 2725 Output Total 1000 1110 Balance -580 1615 Weight 103.3 kg 104.8 kg Weight/Height Weight 104.8 kg Height 5 ft 9 in General appearance: PRESENT: no acute distress, obese Head exam: PRESENT: atraumatic, normocephalic Eye exam: PRESENT: other - Pupils 2mm and conjugate Ear exam: PRESENT: normal external ear exam Mouth exam: PRESENT: moist, tongue midline Neck exam: ABSENT: carotid bruit, JVD, lymphadenopathy, thyromegaly Respiratory exam: PRESENT: decreased breath sounds, rhonchi, tachypnea Cardiovascular exam: PRESENT: RRR. ABSENT: diastolic murmur, rubs, systolic murmur GI/Abdominal exam: PRESENT: normal bowel sounds, soft. ABSENT: distended, guarding, mass, organolmegaly, rebound, tenderness Rectal exam: PRESENT: deferred Gentrourinary exam: PRESENT: indwelling catheter Extremities exam: PRESENT: full ROM. ABSENT: calf tenderness, clubbing, pedal edema Musculoskeletal exam: PRESENT: normal inspection Neurological exam: PRESENT: altered, other - Sedated Skin exam: PRESENT: dry, intact, warm. ABSENT: cyanosis, rash Tubes/Lines: PRESENT: Endotracheal Tube, Central Line, Nasogastic Tube Laboratory/Radiographs Laboratory Results: 02/12/20 22:40 02/13/20 04:20 02/12/20 02/12/20 02/12/20 08:00 13:21 13:40 WBC RBC Hgb Hct MCV MCH MCHC RDW Plt Count Seg Neutrophils % Carbonic Acid 0.70 L 0.92 L HCO3/H2CO3 Ratio 20:1 15:1 ABG pH 7.40 7.28 L ABG pCO2 23.4 L 30.6 L ABG pO2 79.7 L 240.9 H ABG HCO3 14.1 L 13.9 L ABG O2 Saturation 96.0 99.5 H ABG Base Excess -8.3 -11.4 FiO2 4L 100% Sodium 136.9 L Potassium 5.3 H Chloride 108 H Carbon Dioxide 17 L Anion Gap 12 BUN 72 H Creatinine 2.55 H Est GFR ( Amer) 30 L Glucose 233 H Lactic Acid Calcium 7.9 L Magnesium Ferritin C-Reactive Protein Triglycerides 170 H 02/12/20 02/12/20 02/12/20 22:40 22:40 22:40 WBC RBC Hgb Hct MCV MCH MCHC RDW Plt Count Seg Neutrophils % Carbonic Acid 0.64 L HCO3/H2CO3 Ratio 17:1 ABG pH 7.35 ABG pCO2 21.1 L ABG pO2 72.1 L ABG HCO3 11.5 L ABG O2 Saturation 94.3 ABG Base Excess -11.4 FiO2 80% Sodium 138.3 Potassium 4.9 Chloride 113 H Carbon Dioxide 15 L Anion Gap 10 BUN 69 H Creatinine 2.32 H Est GFR ( Amer) 34 L Glucose 196 H Lactic Acid 1.0 Calcium 7.6 L Magnesium 2.1 Ferritin 667.00 H C-Reactive Protein Triglycerides 02/12/20 02/13/20 02/13/20 22:40 04:20 04:20 WBC 5.8 RBC 4.92 Hgb 15.3 Hct 45.4 MCV 92 MCH 31.1 MCHC 33.7 RDW 15.5 H Plt Count 128 L Seg Neutrophils % 92.5 H Carbonic Acid 0.68 L HCO3/H2CO3 Ratio 15:1 ABG pH 7.29 L ABG pCO2 22.7 L ABG pO2 88.5 ABG HCO3 10.7 L ABG O2 Saturation 96.0 ABG Base Excess -13.6 FiO2 80% Sodium 139.7 Potassium 4.8 Chloride 115 H Carbon Dioxide 15 L Anion Gap 10 BUN 67 H Creatinine 2.06 H Est GFR ( Amer) 39 L Glucose 209 H Lactic Acid Calcium 7.7 L Magnesium Ferritin C-Reactive Protein 142.5 H Triglycerides 02/08/20 02/08/20 09:49 13:11 Troponin I 0.160 0.155 NT-Pro-B Natriuret Pep 5540 H Impressions: Hip/Pelvis X-Ray 02/08/20 00:00 IMPRESSION: No acute fracture. Severe degenerative changes of the left hip. Knee X-Ray 02/08/20 00:00 IMPRESSION: NEGATIVE STUDY OF THE RIGHT KNEE. NO RADIOGRAPHIC EVIDENCE OF ACUTE INJURY. Head CT 02/08/20 10:19 IMPRESSION: MILD CHRONIC CHANGES OF ATROPHY AND MICROVASCULAR ISCHEMIA. NO ACUTE PROCESS. EVIDENCE OF ACUTE STROKE: NO. Chest X-Ray 02/13/20 05:00 IMPRESSION: 1. While constellation of findings may represent worsening cardiac function, given the asymmetry of pulmonary findings, infectious etiology is not excluded. 2. Stable lines and tubes. All labs, radiographs, diagnostic studies and EKGs were personally reviewed: Yes In addition, reports of radiographic and diagnostic studies were read: Yes Assessment and Plan - Diagnosis (1) Acute respiratory failure due to COVID-19 Is this a current diagnosis for this admission?: Yes Plan: We are beginning to wean vent from 80% FiO2. However given his age and cardiomyopathy his mortality rate is quite high, perhaps > 50%. (2) Tachypnea Is this a current diagnosis for this admission?: Yes Plan: His rate is down with intubation but still 35/minute. (3) Acute on chronic diastolic CHF (congestive heart failure) Is this a current diagnosis for this admission?: Yes Plan: He may be in some systolic CHF with an EF of 30% or so. May need small dose of lasix. (4) Coronary artery disease Qualifiers: Coronary Disease-Associated Artery/Lesion type: [place] artery [place] vs. transplanted heart: [place] heart Associated angina: with unspecified angina Qualified Code(s): I25.119 - Atherosclerotic heart disease of [place] coronary artery with unspecified angina pectoris Is this a current diagnosis for this admission?: Yes Plan: Inactive right now. (5) Elevated brain natriuretic peptide (BNP) level Is this a current diagnosis for this admission?: Yes Plan: In the face of COVID, EF 30%, MARK, I'm not sure how useful a total number is. Probably a trend is more helpful. Overall treatment unchanged. (6) MARK (obstructive sleep apnea) Is this a current diagnosis for this admission?: Yes Plan: Not an issue with intubation. (7) Obesity (BMI 30-39.9) Is this a current diagnosis for this admission?: Yes Plan: Chronic (8) Stage III chronic kidney disease Is this a current diagnosis for this admission?: Yes Plan: He does have an PRERNA, with a baseline of 1.5-6, his current level of 2.0 is not too bad. Plan Summary: He is not extubatable, will wean FiO2 to 50% then PEEP to 5. Starting TF today. Off dopamine and on 1mcg of levophed. Critical Time Critical Time (minutes): 40 Level of Care: ICU Anticipated discharge: Acute Rehab Anticipated DC Timeframe: Other -: 1. The care of a critical patient is a dynamic process. This note is a access representative synopsis but static in nature. The timeframe for treatments given in order is not necessarily the actual time these treatments may have been done. 2. This patient requires critical care secondary to ongoing requirements for therapy not offered or safe outside the critical care environment. Transfer to a lower level of care will result in altered life or limb morbidity and mortality. 3. Multidisciplinary rounds completed. 4. ABCDE bundle addressed.
[2020-02-13] MEDS: ASPIRIN 81 MG TABLET, CHEWABLE NG SCH (11:17)
[2020-02-13] MEDS: ZINC SULFATE 220 MG CAPSULE NG SCH (11:18)
[2020-02-13] MEDS: CLOPIDOGREL BISULFATE 75 MG TABLET NG SCH (11:18)
[2020-02-13] MEDS: CHOLECALCIFEROL (D3) 1,000 UNIT (25 MCG) TABLET NG SCH (11:18)
[2020-02-13] MEDS: FAMOTIDINE INJ/PF 20 MG/2 ML SDV IV SCH ×2 (11:18→21:40)
[2020-02-13] MEDS: ASCORBIC ACID 500 MG TABLET NG SCH ×2 (11:19→17:42)
[2020-02-13] MEDS: FLUTICASONE NASAL SPRAY 50 MCG/SPRY 120 SPRAY/16 GM NASL SCH ×2 (11:20→21:41)
[2020-02-13] MEDS: SACUBITRIL/VALSARTAN 49 MG/51 MG TABLET NG SCH ×2 (11:21→21:41)
[2020-02-13] MEDS: HYDROXYCHLOROQUINE SULFATE 200 MG TABLET NG SCH ×2 (11:21→17:41)
[2020-02-13] MEDS: ATORVASTATIN CALCIUM 40 MG TABLET NG SCH (21:41)
[2020-02-13] MEDS: MELATONIN 3 MG TABLET NG SCH (21:41)
[2020-02-14] MEDS: DEXMEDETOMIDINE IN NS 400 MCG/100 ML RTUPB IV PRN ×5 (01:51→23:08)
[2020-02-14] MEDS: DEXAMETHASONE SOD PHOSPHATE INJ 4 MG/1 ML VIAL IV SCH ×4 (05:11→23:17)
[2020-02-14] MEDS: HEPARIN SOD (PORCINE) 5,000 UNIT/ML 1 ML VIAL SUBCUT SCH ×3 (05:11→21:47)
[2020-02-14] MEDS: FENTANYL CITRATE INJ/PF 100 MCG/2 ML AMPUL IV PRN ×4 (05:11→18:03)
[2020-02-14 05:47] LABS: ARTERIAL BLOOD H2CO3 0.67 mmol/L (1.05-1.35); ARTERIAL BLOOD HCO3 11.6 mmol/L (20-24); ARTERIAL BLOOD O2 SATURATION 94.5 % (94-98); ARTERIAL BLOOD PCO2 22.1 mmHg (35-45); ARTERIAL BLOOD PH 7.34 (7.35-7.45); ARTERIAL BLOOD TOTAL CO2 12.3 mmol/L (23-27)
[2020-02-14 05:49] LABS: ARTERIAL BLOOD FIO2 60%
[2020-02-14 05:52] LABS: HEMATOCRIT 39.1 % (37.9-51.0); MEAN CORPUSCULAR HEMOGLOBIN 30.3 pg (27.0-33.4); MEAN CORPUSCULAR HGB CONC 32.9 g/dL (32.0-36.0); MEAN CORPUSCULAR VOLUME 92 fl (80-97); PLATELET COUNT 115 10^3/uL (150-450); RED BLOOD COUNT 4.24 10^6/uL (4.35-5.55); RED CELL DISTRIBUTION WIDTH 15.7 % (11.5-14.0)
[2020-02-14 06:23] LABS: ALBUMIN 2.2 g/dL (3.5-5.0); ALKALINE PHOSPHATASE 57 U/L (38-126); ANION GAP 7 (5-19); ASPARTATE AMINO TRANSFERASE 70 U/L (17-59); BILIRUBIN,DIRECT 0.3 mg/dL (0.0-0.4); BILIRUBIN,TOTAL 0.6 mg/dL (0.2-1.3); BLOOD UREA NITROGEN 60 mg/dL (7-20); CALCIUM 7.1 mg/dL (8.4-10.2); CARBON DIOXIDE 15 mmol/L (22-30); CHLORIDE 120 mmol/L (98-107); GLUCOSE 208 mg/dL (75-110); POTASSIUM 4.8 mmol/L (3.6-5.0); TOTAL PROTEIN 4.8 g/dL (6.3-8.2)
[2020-02-14 06:44] LABS: HEMOGLOBIN 12.9 g/dL (13.5-17.0)
[2020-02-14] MEDS: NORMAL SALINE 1000 ML 1,000 ML IV PRN ×2 (06:46→18:08)
[2020-02-14 06:53] LABS: ABSOLUTE LYMPHOCYTES# (MANUAL) 0.1 10^3/uL (0.5-4.7); ABSOLUTE MONOCYTES # (MANUAL) 0.5 10^3/uL (0.1-1.4); BASOPHILS % (MANUAL) 0 % (0-2); EOSINOPHILS % (MANUAL) 0 % (0-6); LYMPHOCYTES % (MANUAL) 2 % (13-45); MONOCYTES % (MANUAL) 9 % (3-13); SEGMENTED NEUTROPHILS % (MAN) 89 % (42-78); TOTAL CELLS COUNTED 100
[2020-02-14 06:55] LABS: ANISOCYTOSIS SLIGHT; BURR CELLS SLIGHT; PLATELET CLUMPS PRESENT; PLATELET COMMENT DECREASED
--- NOTE | 2020-02-14 08:17 | RADIOLOGY REPORT (SQ) ---
EXAM DESCRIPTION: CHEST SINGLE VIEW IMAGES COMPLETED DATE/TIME: 02/14/2020 6:20 am REASON FOR STUDY: vent COMPARISON: 02/13/2020 EXAM PARAMETERS: NUMBER OF VIEWS: One view. TECHNIQUE: Single frontal radiographic view of the chest acquired. RADIATION DOSE: NA LIMITATIONS: None. FINDINGS: LUNGS AND PLEURA: Persistent patchy bibasilar airspace disease, right greater than left. Likely small bilateral pleural effusions. No appreciable pneumothorax. MEDIASTINUM AND HILAR STRUCTURES: No discrete mass. HEART AND VASCULAR STRUCTURES: Enlarged, stable. BONES: No acute findings. Sternotomy changes. HARDWARE: Light vest overlies chest. Sternotomy hardware. Atrial appendage clip. Endotracheal tube tip overlies midthoracic trachea. Enteric tube tip below diaphragm but excluded by collimation. Ri ght internal jugular central venous catheter tip at cavoatrial junction. OTHER: No other significant finding. IMPRESSION: Stable enlarged cardiac silhouette and patchy bibasilar opacities, right greater than le ft. Findings may represent asymmetric edema or infection. Endotracheal tube tip overlies midthoracic trachea. Additional lines and tubes as above. TECHNICAL DOCUMENTATION: JOB ID: [id number] 2010 [employer]- All Rights Reserved Reading location - IP/workstation name: [email or web address]
--- NOTE | 2020-02-14 08:28 | PDOC CRITICAL CARE PROG REPORT ---
General Date:: 02/14/20 ICU Day:: 2 Ventilator Day:: 2 Hospital Day:: 6 Resuscitation Status: Full Code Events in the past 12 to 24 Hours:: Seems to be stable and tolerated small vent weaning Review of systems relevant to events:: Pulmonary, CV Reason for ICU Addmission:: Acute respiratory distress and need for intubation - Medications: Medications reviewed and adjusted accordingly: Yes Vasopressors:: None Sedation:: Precedex Physical Exam Vital Signs: Temp Pulse Resp BP Pulse Ox 99.3 F 67 6 L 116/65 96 02/14/20 04:00 02/13/20 18:38 02/13/20 16:27 02/13/20 16:28 02/14/20 04:24 Pulse Oximeter Nocturnal Start: 02/08/20 13:55 Freq: RTQ4 Status: Complete Protocol: Document 02/09/20 04:00 LRO (Rec: 02/09/20 05:38 LRO [email or web address]) Nocturnal Pulse Oximetry Equipment Usage Equipment in Use Oxygen Delivery Method (includes room Room Air air) O2 Sat by Pulse Oximetry (92-100) 95 Continuous SpO2 Machine # 2 Pulse Oximeter Nocturnal Start: 02/10/20 11:39 Freq: RTQ4 Status: Complete Protocol: Document 02/11/20 04:06 PMU (Rec: 02/11/20 05:06 PMU [email or web address]) Nocturnal Pulse Oximetry Equipment Usage Equipment in Use Oxygen Delivery Method (includes room Room Air air) O2 Sat by Pulse Oximetry (92-100) 93 Continuous SpO2 Machine # N2 Intake & Output 02/13/20 02/14/20 02/15/20 06:59 06:59 06:59 Intake Total 2725 4546 Output Total 1110 1390 90 Balance 1615 3156 -90 Weight 104.8 kg 106.4 kg Weight/Height Weight 106.4 kg Height 5 ft 9 in General appearance: PRESENT: no acute distress, obese Head exam: PRESENT: atraumatic, normocephalic Eye exam: PRESENT: PERRLA Ear exam: PRESENT: normal external ear exam Mouth exam: PRESENT: moist, tongue midline Respiratory exam: PRESENT: clear to auscultation kevyn, crackles, decreased breath sounds. ABSENT: rales, rhonchi, wheezes Cardiovascular exam: PRESENT: tachycardia Vascular exam: PRESENT: normal capillary refill GI/Abdominal exam: PRESENT: normal bowel sounds, soft. ABSENT: distended, guarding, mass, organolmegaly, rebound, tenderness Rectal exam: PRESENT: deferred Gentrourinary exam: PRESENT: indwelling catheter Extremities exam: PRESENT: full ROM. ABSENT: calf tenderness, clubbing, pedal edema Musculoskeletal exam: PRESENT: normal inspection Neurological exam: PRESENT: altered, other - Sedated but arousable. Skin exam: PRESENT: dry, intact, warm. ABSENT: cyanosis, rash Tubes/Lines: PRESENT: Endotracheal Tube, Nasogastic Tube Laboratory/Radiographs Laboratory Results: 02/14/20 05:10 02/14/20 05:10 02/14/20 02/14/20 02/14/20 05:10 05:10 05:10 WBC 6.0 RBC 4.24 L Hgb 12.9 L D Hct 39.1 MCV 92 MCH 30.3 MCHC 32.9 RDW 15.7 H Plt Count 115 L Seg Neutrophils % Not Reportable Carbonic Acid 0.67 L HCO3/H2CO3 Ratio 17:1 ABG pH 7.34 L ABG pCO2 22.1 L ABG pO2 74.0 L ABG HCO3 11.6 L ABG O2 Saturation 94.5 ABG Base Excess -12.0 FiO2 60% Sodium 142.3 Potassium 4.8 Chloride 120 H Carbon Dioxide 15 L Anion Gap 7 BUN 60 H Creatinine 1.77 H Est GFR ( Amer) 46 L Glucose 208 H Calcium 7.1 L Total Bilirubin 0.6 AST 70 H Alkaline Phosphatase 57 Total Protein 4.8 L Albumin 2.2 L 02/08/20 02/08/20 09:49 13:11 Troponin I 0.160 0.155 NT-Pro-B Natriuret Pep 5540 H Impressions: Hip/Pelvis X-Ray 02/08/20 00:00 IMPRESSION: No acute fracture. Severe degenerative changes of the left hip. Knee X-Ray 02/08/20 00:00 IMPRESSION: NEGATIVE STUDY OF THE RIGHT KNEE. NO RADIOGRAPHIC EVIDENCE OF ACUTE INJURY. Head CT 02/08/20 10:19 IMPRESSION: MILD CHRONIC CHANGES OF ATROPHY AND MICROVASCULAR ISCHEMIA. NO ACUTE PROCESS. EVIDENCE OF ACUTE STROKE: NO. All labs, radiographs, diagnostic studies and EKGs were personally reviewed: Yes In addition, reports of radiographic and diagnostic studies were read: Yes Assessment and Plan - Diagnosis (1) Acute respiratory failure due to COVID-19 Is this a current diagnosis for this admission?: Yes Plan: Surprisingly despite age, COVID and cardiac status, thus far he is stable. (2) Tachypnea Is this a current diagnosis for this admission?: Yes Plan: Will give fentanyl to try and slow RR, drop vent rate. (3) Acute on chronic diastolic CHF (congestive heart failure) Is this a current diagnosis for this admission?: Yes Plan: IVF decreased to 75 form 150. (4) Coronary artery disease Qualifiers: Coronary Disease-Associated Artery/Lesion type: unspecified vessel or lesion type [place] vs. transplanted heart: [place] heart Associated angina: with unspecified angina Qualified Code(s): I25.119 - Atherosclerotic heart disease of [place] coronary artery with unspecified angina pectoris Is this a current diagnosis for this admission?: Yes Plan: Inactive. (5) Elevated brain natriuretic peptide (BNP) level Is this a current diagnosis for this admission?: Yes Plan: Again, unsure of significance with COVID, MARK, EF 25%. (6) MARK (obstructive sleep apnea) Is this a current diagnosis for this admission?: Yes (7) Obesity (BMI 30-39.9) Is this a current diagnosis for this admission?: Yes Plan: Chronic (8) Stage III chronic kidney disease Is this a current diagnosis for this admission?: Yes Plan: A bit better with a BUN/Cr of 60/1.8 and GFR to 38. Plan Summary: Attempt to wean ventilator today. Critical Time Critical Time (minutes): 40 Level of Care: ICU Anticipated discharge: Home Anticipated DC Timeframe: Other -: 1. The care of a critical patient is a dynamic process. This note is a r epresentative synopsis but static in nature. The timeframe for treatments given in order is not necessarily the actual time these treatments may have been done. 2. This patient requires critical care secondary to ongoing requirements for therapy not offered or safe outside the critical care environment. Transfer to a lower level of care will result in altered life or limb morbidity and mortali ty. 3. Multidisciplinary rounds completed. 4. ABCDE bundle addressed.
[2020-02-14] MEDS: ZINC SULFATE 220 MG CAPSULE NG SCH (10:09)
[2020-02-14] MEDS: CHOLECALCIFEROL (D3) 1,000 UNIT (25 MCG) TABLET NG SCH (10:09)
[2020-02-14] MEDS: HYDROXYCHLOROQUINE SULFATE 200 MG TABLET NG SCH ×2 (10:10→18:11)
[2020-02-14] MEDS: CLOPIDOGREL BISULFATE 75 MG TABLET NG SCH (10:11)
[2020-02-14] MEDS: ASPIRIN 81 MG TABLET, CHEWABLE NG SCH (10:11)
[2020-02-14] MEDS: ASCORBIC ACID 500 MG TABLET NG SCH ×2 (10:11→18:04)
[2020-02-14] MEDS: SACUBITRIL/VALSARTAN 49 MG/51 MG TABLET NG SCH ×2 (10:12→21:47)
[2020-02-14] MEDS: FLUTICASONE NASAL SPRAY 50 MCG/SPRY 120 SPRAY/16 GM NASL SCH ×2 (10:12→21:47)
[2020-02-14] MEDS: FAMOTIDINE INJ/PF 20 MG/2 ML SDV IV SCH ×2 (10:16→21:47)
[2020-02-14] MEDS: MELATONIN 3 MG TABLET NG SCH (21:47)
[2020-02-14] MEDS: ATORVASTATIN CALCIUM 40 MG TABLET NG SCH (21:47)
[2020-02-15] MEDS: FENTANYL CITRATE INJ/PF 100 MCG/2 ML AMPUL IV PRN ×4 (00:14→14:19)
[2020-02-15] MEDS: DEXMEDETOMIDINE IN NS 400 MCG/100 ML RTUPB IV PRN ×7 (02:22→22:32)
[2020-02-15 05:05] LABS: ARTERIAL BLOOD BASE EXCESS -10.4 mmol/L; ARTERIAL BLOOD H2CO3 0.54 mmol/L (1.05-1.35); ARTERIAL BLOOD HCO3 11.3 mmol/L (20-24); ARTERIAL BLOOD O2 SATURATION 95.5 % (94-98); ARTERIAL BLOOD PH 7.42 (7.35-7.45); ARTERIAL BLOOD PO2 73.6 mmHg (80-100); ARTERIAL BLOOD TOTAL CO2 11.8 mmol/L (23-27)
[2020-02-15 05:07] LABS: ARTERIAL BLOOD FIO2 50%; ARTERIAL BLOOD PCO2 17.8 mmHg (35-45)
[2020-02-15] MEDS: DEXAMETHASONE SOD PHOSPHATE INJ 4 MG/1 ML VIAL IV SCH ×4 (05:20→23:26)
[2020-02-15] MEDS: HEPARIN SOD (PORCINE) 5,000 UNIT/ML 1 ML VIAL SUBCUT SCH ×3 (05:20→21:33)
[2020-02-15 05:26] LABS: ALBUMIN 2.3 g/dL (3.5-5.0); ALKALINE PHOSPHATASE 69 U/L (38-126); ANION GAP 7 (5-19); ASPARTATE AMINO TRANSFERASE 98 U/L (17-59); BILIRUBIN,DIRECT 0.4 mg/dL (0.0-0.4); BILIRUBIN,TOTAL 0.6 mg/dL (0.2-1.3); BLOOD UREA NITROGEN 58 mg/dL (7-20); CALCIUM 7.3 mg/dL (8.4-10.2); CARBON DIOXIDE 13 mmol/L (22-30); CHLORIDE 123 mmol/L (98-107); GLUCOSE 202 mg/dL (75-110); POTASSIUM 5.1 mmol/L (3.6-5.0); TRIGLYCERIDES 318 mg/dL (<150)
[2020-02-15] MEDS: NORMAL SALINE 1000 ML 1,000 ML IV PRN ×2 (06:22→14:21)
--- NOTE | 2020-02-15 08:47 | RADIOLOGY REPORT (SQ) ---
EXAM DESCRIPTION: CHEST SINGLE VIEW IMAGES COMPLETED DATE/TIME: 02/15/2020 6:27 am REASON FOR STUDY: intubated COMPARISON: 02/14/2020 FINDINGS: One-view chest AP portable semi-upright. Limiting external artifacts. Endotracheal and nasogastric tubes remain down as does a right IJ line. Patchy airspace infiltrates in the lung bases, doubt change. Most confluent on the right. No pneumo thorax. TECHNICAL DOCUMENTATION: JOB ID: [id number] Reading location - IP/workstation name: [email or web address]
[2020-02-15] MEDS: ASPIRIN 81 MG TABLET, CHEWABLE NG SCH (09:50)
[2020-02-15] MEDS: ZINC SULFATE 220 MG CAPSULE NG SCH (09:50)
[2020-02-15] MEDS: FAMOTIDINE INJ/PF 20 MG/2 ML SDV IV SCH ×2 (09:50→21:33)
[2020-02-15] MEDS: CHOLECALCIFEROL (D3) 1,000 UNIT (25 MCG) TABLET NG SCH (09:50)
[2020-02-15] MEDS: ASCORBIC ACID 500 MG TABLET NG SCH ×2 (09:50→18:36)
[2020-02-15] MEDS: CLOPIDOGREL BISULFATE 75 MG TABLET NG SCH (09:50)
[2020-02-15] MEDS: HYDROXYCHLOROQUINE SULFATE 200 MG TABLET NG SCH ×2 (09:51→18:36)
[2020-02-15] MEDS: FLUTICASONE NASAL SPRAY 50 MCG/SPRY 120 SPRAY/16 GM NASL SCH ×2 (09:51→21:34)
[2020-02-15] MEDS: SACUBITRIL/VALSARTAN 49 MG/51 MG TABLET NG SCH ×2 (09:51→21:33)
[2020-02-15] MEDS: ACETAMINOPHEN SOLN 325 MG/10.15 ML UDCUP NG PRN (09:57)
--- NOTE | 2020-02-15 11:02 | PDOC CRITICAL CARE PROG REPORT ---
General Date:: 02/15/20 ICU Day:: 3 Ventilator Day:: 3 Hospital Day:: 7 Resuscitation Status: Full Code Events in the past 12 to 24 Hours:: Able to make some weaning on vent Review of systems relevant to events:: Pulmonary Reason for ICU Addmission:: Acute respiratory distress and need for intubation - Medications: Medications reviewed and adjusted accordingly: Yes Vasopressors:: None Sedation:: Precedex. Physical Exam Vital Signs: Temp Pulse Resp BP Pulse Ox 100.8 F H 75 35 H 152/70 H 94 02/15/20 08:00 02/15/20 08:00 02/15/20 08:00 02/15/20 08:00 02/15/20 08:00 Pulse Oximeter Nocturnal Start: 02/08/20 13:55 Freq: RTQ4 Status: Complete Protocol: Document 02/09/20 04:00 LRO (Rec: 02/09/20 05:38 LRO [email or web address]) Nocturnal Pulse Oximetry Equipment Usage Equipment in Use Oxygen Delivery Method (includes room Room Air air) O2 Sat by Pulse Oximetry (92-100) 95 Continuous SpO2 Machine # 2 Pulse Oximeter Nocturnal Start: 02/10/20 11:39 Freq: RTQ4 Status: Complete Protocol: Document 02/11/20 04:06 PMU (Rec: 02/11/20 05:06 PMU [email or web address]) Nocturnal Pulse Oximetry Equipment Usage Equipment in Use Oxygen Delivery Method (includes room Room Air air) O2 Sat by Pulse Oximetry (92-100) 93 Continuous SpO2 Machine # N2 Intake & Output 02/14/20 02/15/20 02/16/20 06:59 06:59 06:59 Intake Total 4546 1950 100 Output Total 1390 1915 Balance 3156 35 100 Weight 106.4 kg 108.6 kg Weight/Height Weight 108.6 kg Height 5 ft 9 in General appearance: PRESENT: no acute distress, obese Head exam: ABSENT: atraumatic, normocephalic, other Eye exam: PRESENT: conjunctiva pink, EOMI, PERRLA. ABSENT: scleral icterus Ear exam: PRESENT: normal external ear exam Mouth exam: PRESENT: moist, tongue midline Respiratory exam: PRESENT: clear to auscultation kevyn, decreased breath sounds, symmetrical, tachypnea Cardiovascular exam: PRESENT: RRR. ABSENT: diastolic murmur, rubs, systolic murmur GI/Abdominal exam: PRESENT: normal bowel sounds, soft. ABSENT: distended, guarding, mass, organolmegaly, rebound, tenderness Rectal exam: PRESENT: deferred Gentrourinary exam: PRESENT: indwelling catheter Extremities exam: PRESENT: +1 edema Musculoskeletal exam: PRESENT: normal inspection Neurological exam: PRESENT: altered, CN II-XII grossly intact, other - Sedated. Skin exam: PRESENT: dry, intact, warm. ABSENT: cyanosis, rash Tubes/Lines: PRESENT: Endotracheal Tube, Central Line, Nasogastic Tube Laboratory/Radiographs Laboratory Results: 02/14/20 05:10 02/15/20 04:45 02/15/20 02/15/20 04:45 04:45 Carbonic Acid 0.54 L HCO3/H2CO3 Ratio 20:1 ABG pH 7.42 ABG pCO2 17.8 L* ABG pO2 73.6 L ABG HCO3 11.3 L ABG O2 Saturation 95.5 ABG Base Excess -10.4 FiO2 50% Sodium 142.6 Potassium 5.1 H Chloride 123 H Carbon Dioxide 13 L Anion Gap 7 BUN 58 H Creatinine 1.71 H Est GFR ( Amer) 48 L Glucose 202 H Calcium 7.3 L Magnesium 2.5 H Total Bilirubin 0.6 AST 98 H Alkaline Phosphatase 69 Total Protein 5.0 L Albumin 2.3 L Triglycerides 318 H 02/08/20 02/08/20 09:49 13:11 Troponin I 0.160 0.155 NT-Pro-B Natriuret Pep 5540 H Impressions: Hip/Pelvis X-Ray 02/08/20 00:00 IMPRESSION: No acute fracture. Severe degenerative changes of the left hip. Knee X-Ray 02/08/20 00:00 IMPRESSION: NEGATIVE STUDY OF THE RIGHT KNEE. NO RADIOGRAPHIC EVIDENCE OF ACUTE INJURY. Head CT 02/08/20 10:19 IMPRESSION: MILD CHRONIC CHANGES OF ATROPHY AND MICROVASCULAR ISCHEMIA. NO ACUTE PROCESS. EVIDENCE OF ACUTE STROKE: NO. All labs, radiographs, diagnostic studies and EKGs were personally reviewed: Yes In addition, reports of radiographic and diagnostic studies were read: Yes Assessment and Plan - Diagnosis (1) Acute respiratory failure due to COVID-19 Is this a current diagnosis for this admission?: Yes Plan: Making slow progress on vent. With comorbities mortality will be high. Will try to lower rate. From 18 to 14 has not changed his RR. (2) Tachypnea Is this a current diagnosis for this admission?: Yes Plan: This is likely a consequence of his lung disease. Fentanyl thus far has not lowered it. (3) Acute on chronic diastolic CHF (congestive heart failure) Is this a current diagnosis for this admission?: Yes Plan: Will cut bach on IVF. (4) Coronary artery disease Qualifiers: Coronary Disease-Associated Artery/Lesion type: unspecified vessel or lesion type [place] vs. transplanted heart: [place] heart Associated angina: with unspecified angina Qualified Code(s): I25.119 - Atherosclerotic heart disease of [place] coronary artery with unspecified angina pectoris Is this a current diagnosis for this admission?: Yes Plan: Inactive. (5) Elevated brain natriuretic peptide (BNP) level Is this a current diagnosis for this admission?: Yes Plan: Unsure of the significance. (6) MARK (obstructive sleep apnea) Is this a current diagnosis for this admission?: Yes Plan: Not an issue while intubated. (7) Obesity (BMI 30-39.9) Is this a current diagnosis for this admission?: Yes Plan: Chronic and a risk factor for complications. (8) Stage III chronic kidney disease Is this a current diagnosis for this admission?: Yes Plan: GFR up to 40. Plan Summary: Slow progress on vent. Will try to wean rate. He is on 60% but saturating at 94% Critical Time Critical Time (minutes): 40 Level of Care: ICU Anticipated discharge: SNF Anticipated DC Timeframe: Other -: 1. The care of a critical patient is a dynamic process. This note is a specialty sales representative synopsis but static in nature. The timeframe for treatments given in order is not necessarily the actual time these treatments may have been done. 2. This patient requires critical care secondary to ongoing requirements for th erapy not offered or safe outside the critical care environment. Transfer to a lower level of care will result in altered life or limb morbidity and mortality. 3. Multidisciplinary rounds completed. 4. ABCDE bundle addressed.
[2020-02-15] MEDS: MELATONIN 3 MG TABLET NG SCH (21:33)
[2020-02-15] MEDS: ATORVASTATIN CALCIUM 40 MG TABLET NG SCH (21:33)
[2020-02-16] MEDS: FENTANYL CITRATE INJ/PF 100 MCG/2 ML AMPUL IV PRN (00:31)
[2020-02-16] MEDS: DEXMEDETOMIDINE IN NS 400 MCG/100 ML RTUPB IV PRN ×2 (01:04→04:47)
[2020-02-16] MEDS ORDERED: DIAZEPAM INJ 10 MG/2 ML DISP.SYRIN ONE (04:29)
[2020-02-16] MEDS ORDERED: DIAZEPAM INJ 10 MG/2 ML DISP.SYRIN IV PRN (04:29)
[2020-02-16] MEDS ORDERED: PROPOFOL 1,000 MG/100 ML INFUS..BTL IV ONE (04:49)
[2020-02-16] MEDS: PROPOFOL 1,000 MG/100 ML INFUS..BTL IV PRN ×4 (04:49→19:42)
[2020-02-16 05:00] LABS: HEMATOCRIT 41.6 % (37.9-51.0); HEMOGLOBIN 13.7 g/dL (13.5-17.0); MEAN CORPUSCULAR HEMOGLOBIN 30.2 pg (27.0-33.4); MEAN CORPUSCULAR HGB CONC 32.9 g/dL (32.0-36.0); MEAN CORPUSCULAR VOLUME 92 fl (80-97); PLATELET COUNT 147 10^3/uL (150-450); RED BLOOD COUNT 4.52 10^6/uL (4.35-5.55); WHITE BLOOD COUNT 7.4 10^3/uL (4.0-10.5)
[2020-02-16 05:03] LABS: ARTERIAL BLOOD BASE EXCESS -11.4 mmol/L; ARTERIAL BLOOD H2CO3 0.49 mmol/L (1.05-1.35); ARTERIAL BLOOD O2 SATURATION 88.9 % (94-98); ARTERIAL BLOOD PH 7.41 (7.35-7.45); ARTERIAL BLOOD PO2 53.1 mmHg (80-100); ARTERIAL BLOOD TOTAL CO2 10.5 mmol/L (23-27)
[2020-02-16 05:04] LABS: ARTERIAL BLOOD FIO2 45%
[2020-02-16] MEDS ORDERED: PIPERACILLIN/TAZOBACTAM 3.375 GM VIAL IV ONE (05:05)
[2020-02-16 05:06] LABS: ARTERIAL BLOOD PCO2 16.3 mmHg (35-45)
[2020-02-16 05:19] LABS: ALBUMIN 2.2 g/dL (3.5-5.0); ALKALINE PHOSPHATASE 74 U/L (38-126); ANION GAP 6 (5-19); ASPARTATE AMINO TRANSFERASE 73 U/L (17-59); BILIRUBIN,DIRECT 0.5 mg/dL (0.0-0.4); BILIRUBIN,TOTAL 0.7 mg/dL (0.2-1.3); BLOOD UREA NITROGEN 58 mg/dL (7-20); CALCIUM 7.6 mg/dL (8.4-10.2); CARBON DIOXIDE 13 mmol/L (22-30); CHLORIDE 127 mmol/L (98-107); GLUCOSE 204 mg/dL (75-110); POTASSIUM 5.2 mmol/L (3.6-5.0); TOTAL PROTEIN 5.1 g/dL (6.3-8.2)
[2020-02-16 05:33] LABS: ABSOLUTE LYMPHOCYTES# (MANUAL) 0.3 10^3/uL (0.5-4.7); ABSOLUTE MONOCYTES # (MANUAL) 0.2 10^3/uL (0.1-1.4); ANISOCYTOSIS 1+; BASOPHILS % (MANUAL) 0 % (0-2); EOSINOPHILS % (MANUAL) 0 % (0-6); LYMPHOCYTES % (MANUAL) 4 % (13-45); MONOCYTES % (MANUAL) 3 % (3-13); PLATELET COMMENT DECREASED; SEGMENTED NEUTROPHILS % (MAN) 93 % (42-78); TOTAL CELLS COUNTED 100
[2020-02-16 05:37] LABS: BURR CELLS SLIGHT; OVALOCYTES SLIGHT; TARGET CELLS SLIGHT
[2020-02-16] MEDS ORDERED: NOREPINEPHRINE BITARTRATE INJ/PF 4 MG/4 ML SDV IV ONE (05:53)
[2020-02-16] MEDS ORDERED: VECURONIUM BROMIDE INJ 10 MG VIAL IV ONE ×2 (05:54→05:56)
[2020-02-16] MEDS ORDERED: SODIUM BICARBONATE 8.4% INJ 50 MEQ/50 ML DISP.SYRIN IV ONE ×2 (05:57→21:00)
[2020-02-16] MEDS: PIPERACILLIN/TAZOBACTAM 3.375 GM VIAL IV SCH ×3 (05:58→17:59)
[2020-02-16] MEDS: HEPARIN SOD (PORCINE) 5,000 UNIT/ML 1 ML VIAL SUBCUT SCH ×3 (05:59→21:10)
[2020-02-16] MEDS ORDERED: SODIUM BICARBONATE 8.4% INJ 50 MEQ/50 ML DISP.SYRIN ONE ×2 (05:59→20:45)
[2020-02-16] MEDS: DEXAMETHASONE SOD PHOSPHATE INJ 4 MG/1 ML VIAL IV SCH ×3 (05:59→18:00)
[2020-02-16] MEDS: DEXTROSE 5%-WATER 250 ML with NOREPINEPHRINE BITARTRATE 4 MG IV PRN ×2 (05:59)
[2020-02-16] MEDS ORDERED: SODIUM POLYSTYRENE SULFONATE 15 GM/60 ML PO ONE (06:13)
[2020-02-16] MEDS ORDERED: DEXTROSE 50%-WATER 25 GM/50 ML DISP.SYRIN IV ONE ×3 (06:18→06:32)
[2020-02-16] MEDS ORDERED: INSULIN REG, HUMAN 100 UNIT/ML 3 ML VIAL (PYX) IV ONE (06:18)
[2020-02-16] MEDS ORDERED: INSULIN REG, HUMAN 100 UNIT/ML 3 ML VIAL (PYX) ONE (06:22)
[2020-02-16 07:36] LABS: C-REACTIVE PROTEIN 59.7 mg/L (<10.0)
[2020-02-16] MEDS ORDERED: BISACODYL 10 MG SUPP.RECT PR ONE (07:57)
[2020-02-16] MEDS ORDERED: DEXTROSE 5%-1/2 NORMAL SALINE 1,000 ML IV PRN (07:59)
--- NOTE | 2020-02-16 08:23 | PDOC CRITICAL CARE PROG REPORT ---
General Date:: 02/16/20 ICU Day:: 4 Ventilator Day:: 4 Hospital Day:: 8 Resuscitation Status: Full Code Events in the past 12 to 24 Hours:: Essentially no significant change. Review of systems relevant to events:: Pulmonary, CV Reason for ICU Addmission:: Acute respiratory distress and need for intubation - Medications: Medications reviewed and adjusted accordingly: Yes Vasopressors:: Levophed Sedation:: Diprivan. Physical Exam Vital Signs: Temp Pulse Resp BP Pulse Ox 99.9 F 66 28 H 151/68 H 91 L 02/16/20 04:00 02/15/20 18:00 02/15/20 18:00 02/15/20 18:00 02/16/20 04:42 Pulse Oximeter Nocturnal Start: 02/08/20 13:55 Freq: RTQ4 Status: Complete Protocol: Document 02/09/20 04:00 LRO (Rec: 02/09/20 05:38 LRO [id number]) Nocturnal Pulse Oximetry Equipment Usage Equipment in Use Oxygen Delivery Method (includes room Room Air air) O2 Sat by Pulse Oximetry (92-100) 95 Continuous SpO2 Machine # 2 Pulse Oximeter Nocturnal Start: 02/10/20 11:39 Freq: RTQ4 Status: Complete Protocol: Document 02/11/20 04:06 PMU (Rec: 02/11/20 05:06 PMU [email or web address]) Nocturnal Pulse Oximetry Equipment Usage Equipment in Use Oxygen Delivery Method (includes room Room Air air) O2 Sat by Pulse Oximetry (92-100) 93 Continuous SpO2 Machine # N2 Intake & Output 02/15/20 02/16/20 02/17/20 06:59 06:59 06:59 Intake Total 1950 1268 6 Output Total 1915 1810 Balance 35 -542 6 Weight 108.6 kg 107.6 kg Weight/Height Weight 107.6 kg Height 5 ft 9 in General appearance: PRESENT: no acute distress, obese Head exam: PRESENT: atraumatic, normocephalic Eye exam: PRESENT: conjunctiva pink, EOMI, PERRLA. ABSENT: scleral icterus Ear exam: PRESENT: normal external ear exam Mouth exam: PRESENT: moist, tongue midline Respiratory exam: PRESENT: clear to auscultation kevyn, rhonchi. ABSENT: rales, wheezes Cardiovascular exam: PRESENT: RRR. ABSENT: diastolic murmur, rubs, systolic murmur GI/Abdominal exam: PRESENT: hypoactive bowel sounds, normal bowel sounds, soft. ABSENT: distended, guarding, mass, organolmegaly, rebound, tenderness Rectal exam: PRESENT: deferred Gentrourinary exam: PRESENT: indwelling catheter Extremities exam: PRESENT: full ROM. ABSENT: calf tenderness, clubbing, pedal edema Musculoskeletal exam: PRESENT: normal inspection Neurological exam: PRESENT: altered, other - Sedated. Skin exam: PRESENT: dry, intact, warm. ABSENT: cyanosis, rash Tubes/Lines: PRESENT: Endotracheal Tube, Central Line, Nasogastic Tube Laboratory/Radiographs Laboratory Results: 02/16/20 04:20 02/16/20 04:20 02/16/20 02/16/20 02/16/20 04:20 04:20 04:20 WBC 7.4 RBC 4.52 Hgb 13.7 Hct 41.6 MCV 92 MCH 30.2 MCHC 32.9 RDW 16.0 H Plt Count 147 L Seg Neutrophils % Not Reportable Carbonic Acid 0.49 L HCO3/H2CO3 Ratio 20:1 ABG pH 7.41 ABG pCO2 16.3 L* ABG pO2 53.1 L ABG HCO3 10.0 L ABG O2 Saturation 88.9 L ABG Base Excess -11.4 FiO2 45% Sodium 146.0 H Potassium 5.2 H Chloride 127 H Carbon Dioxide 13 L Anion Gap 6 BUN 58 H Creatinine 1.67 H Est GFR ( Amer) 49 L Glucose 204 H Lactic Acid Calcium 7.6 L Magnesium 2.8 H Total Bilirubin 0.7 AST 73 H Alkaline Phosphatase 74 Total Protein 5.1 L Albumin 2.2 L Triglycerides 02/16/20 02/16/20 04:20 06:50 WBC RBC Hgb Hct MCV MCH MCHC RDW Plt Count Seg Neutrophils % Carbonic Acid HCO3/H2CO3 Ratio ABG pH ABG pCO2 ABG pO2 ABG HCO3 ABG O2 Saturation ABG Base Excess FiO2 Sodium Potassium Chloride Carbon Dioxide Anion Gap BUN Creatinine Est GFR ( Amer) Glucose Lactic Acid 1.4 Calcium Magnesium Total Bilirubin AST Alkaline Phosphatase Total Protein Albumin Triglycerides 278 H 02/08/20 02/08/20 09:49 13:11 Troponin I 0.160 0.155 NT-Pro-B Natriuret Pep 5540 H Impressions: Hip/Pelvis X-Ray 02/08/20 00:00 IMPRESSION: No acute fracture. Severe degenerative changes of the left hip. Knee X-Ray 02/08/20 00:00 IMPRESSION: NEGATIVE STUDY OF THE RIGHT KNEE. NO RADIOGRAPHIC EVIDENCE OF ACUTE INJURY. Head CT 02/08/20 10:19 IMPRESSION: MILD CHRONIC CHANGES OF ATROPHY AND MICROVASCULAR ISCHEMIA. NO ACUTE PROCESS. EVIDENCE OF ACUTE STROKE: NO. EKG: NSR with occassional PVCs All labs, radiographs, diagnostic studies and EKGs were personally reviewed: Yes In addition, reports of radiographic and diagnostic studies were read: Yes Assessment and Plan - Diagnosis (1) Acute respiratory failure due to COVID-19 Is this a current diagnosis for this admission?: Yes Plan: Remains vented. Unable to wean much. Will try small moves. fiO2 TO 80% RR to16. Prognosis at his age is not good. (2) Tachypnea Is this a current diagnosis for this admission?: Yes Plan: This seems to be better with higher diprivan. RR 18 on his own. (3) Acute on chronic diastolic CHF (congestive heart failure) Is this a current diagnosis for this admission?: Yes Plan: Inactive right now. (4) Coronary artery disease Qualifiers: Coronary Disease-Associated Artery/Lesion type: unspecified vessel or lesion type [place] vs. transplanted heart: [place] heart Associated angina: with unspecified angina Qualified Code(s): I25.119 - Atherosclerotic heart disease of [place] coronary artery with unspecified angina pectoris Is this a current diagnosis for this admission?: Yes Plan: Stable (5) Elevated brain natriuretic peptide (BNP) level Is this a current diagnosis for this admission?: Yes Plan: Not repeated. (6) AMRK (obstructive sleep apnea) Is this a current diagnosis for this admission?: Yes (7) Obesity (BMI 30-39.9) Is this a current diagnosis for this admission?: Yes Plan: Chronic and a risk factor for COVID . (8) Stage III chronic kidney disease Is this a current diagnosis for this admission?: Yes Plan: Cr 1.6 and GFR 41 Plan Summary: Making small moves on ventilator to 80% and RR 16. Critical Time Critical Time (minutes): 35 Level of Care: ICU Anticipated discharge: SNF Anticipated DC Timeframe: Other -: 1. The care of a critical patient is a dynamic process. This note is a healthcare sales representative synopsis but static in nature. The timeframe for treatments given in order is not necessarily the actual time these treatments may have been done. 2. This patient requires critical care secondary to ongoing requirements for therapy not offered or safe outside the critical care environment. Transfer to a lower level of care will result in altered life or limb morbidity and mortality. 3. Multidisciplinary rounds completed. 4. ABCDE bundle addressed.
--- NOTE | 2020-02-16 08:27 | RADIOLOGY REPORT (SQ) ---
EXAM DESCRIPTION: CHEST SINGLE VIEW IMAGES COMPLETED DATE/TIME: 02/16/2020 6:25 am REASON FOR STUDY: vent COMPARISON: 02/15/2020 FINDINGS: AP portable semi upright one view. Limiting external artifact. Grossly appropriate endotracheal and nasogastric tubes and right IJ line. Basilar patchy infiltrates/ edema suspected, as before. Doubt change. TECHNICAL DOCUMENTATION: JOB ID: [id number] Reading location - IP/workstation name: [email or web address]
--- NOTE | 2020-02-16 08:40 | Progress Note ---
Provider Note Provider Note: We've tried for several days to try enteral feeding. He has either vomited or has residuals 300-500. TPN to strat
[2020-02-16] MEDS ORDERED: METOPROLOL TARTRATE PF/INJ 5 MG/5 ML SDV IV ONE (08:43)
[2020-02-16] MEDS: METOPROLOL TARTRATE PF/INJ 5 MG/5 ML SDV IV PRN ×2 (08:49→10:36)
[2020-02-16] MEDS ORDERED: DILTIAZEM HCL INJ 25 MG/5 ML VIAL ONE (09:12)
[2020-02-16] MEDS ORDERED: DILTIAZEM HCL INJ 25 MG/5 ML VIAL IV ONE (09:12)
[2020-02-16 09:28] LABS: INTERNATIONAL RATION (INR) 1.05; PROTHROMBIN TIME 13.9 SEC (11.4-15.4)
[2020-02-16] MEDS ORDERED: DILTIAZEM HCL/D5W 125 MG/125 ML RTUINJ IV ONE (09:28)
[2020-02-16] MEDS: DILTIAZEM HCL/D5W 125 MG/125 ML RTUINJ IV PRN ×2 (09:40→18:02)
[2020-02-16] MEDS: ASCORBIC ACID 500 MG TABLET NG SCH ×2 (09:48→18:00)
[2020-02-16] MEDS: METOCLOPRAMIDE HCL INJ/PF 10 MG/2 ML SDV IV SCH ×3 (09:48→17:59)
[2020-02-16] MEDS: ACETAMINOPHEN SOLN 325 MG/10.15 ML UDCUP NG PRN ×2 (09:48→14:25)
[2020-02-16] MEDS: FAMOTIDINE INJ/PF 20 MG/2 ML SDV IV SCH (09:49)
[2020-02-16] MEDS: CHOLECALCIFEROL (D3) 1,000 UNIT (25 MCG) TABLET NG SCH (09:49)
[2020-02-16] MEDS: CLOPIDOGREL BISULFATE 75 MG TABLET NG SCH (09:49)
[2020-02-16] MEDS: ASPIRIN 81 MG TABLET, CHEWABLE NG SCH (09:49)
[2020-02-16] MEDS: ZINC SULFATE 220 MG CAPSULE NG SCH (09:49)
[2020-02-16] MEDS: FLUTICASONE NASAL SPRAY 50 MCG/SPRY 120 SPRAY/16 GM NASL SCH ×2 (09:50→21:11)
[2020-02-16] MEDS: SACUBITRIL/VALSARTAN 49 MG/51 MG TABLET NG SCH ×2 (09:51→21:11)
[2020-02-16] MEDS: HYDROXYCHLOROQUINE SULFATE 200 MG TABLET NG SCH (09:51)
[2020-02-16] MEDS ORDERED: DEXTROSE 40% GEL 15 GM TUBE PO PRN (10:30)
[2020-02-16] MEDS ORDERED: DEXTROSE 50%-WATER SYRINGE 25 GM/50 ML DOSE IV PRN (10:30)
[2020-02-16] MEDS ORDERED: DEXTROSE 50%-WATER SYRINGE 12.5 GM/25 ML DOSE IV PRN (10:30)
[2020-02-16] MEDS ORDERED: GLUCAGON,HUMAN RECOMB 1 MG INJ IM PRN (10:30)
[2020-02-16] MEDS ORDERED: DEXTROSE 10%-WATER 1,000 ML IV PRN (10:30)
[2020-02-16] MEDS ORDERED: DEXTROSE 40% GEL 15 GM TUBE X 2 PO PRN (10:30)
[2020-02-16 11:41] LABS: ARTERIAL BLOOD H2CO3 1.81 mmol/L (1.05-1.35); ARTERIAL BLOOD HCO3 16.2 mmol/L (20-24); ARTERIAL BLOOD O2 SATURATION 78.1 % (94-98); ARTERIAL BLOOD PCO2 60.2 mmHg (35-45); ARTERIAL BLOOD PO2 59.8 mmHg (80-100)
[2020-02-16 11:42] LABS: ARTERIAL BLOOD FIO2 100%
[2020-02-16 11:43] LABS: ARTERIAL BLOOD PH 7.05 (7.35-7.45)
[2020-02-16 12:02] LABS: ANION GAP 10 (5-19); BLOOD UREA NITROGEN 63 mg/dL (7-20); CALCIUM 7.5 mg/dL (8.4-10.2); CARBON DIOXIDE 17 mmol/L (22-30); CHLORIDE 121 mmol/L (98-107); GLUCOSE 268 mg/dL (75-110); POTASSIUM 5.6 mmol/L (3.6-5.0)
[2020-02-16] MEDS: INSULIN REG, HUMAN 100 UNIT/ML 3 ML VIAL (PYX) SUBCUT SCH ×2 (14:19→18:00)
[2020-02-16] MEDS ORDERED: AMINO ACIDS 5 %/DEXTROSE 20 % 1,000 ML IV PRN (18:00)
[2020-02-16] MEDS: LINEZOLID 600 MG/300 ML RTUPB IV SCH (18:02)
[2020-02-16] MEDS ORDERED: NORMAL SALINE 1000 ML 1,000 ML IV PRN (18:18)
[2020-02-16] MEDS ORDERED: ALBUMIN HUMAN 12.5 GM/50 ML RTUINJ IV ONE (19:30)
[2020-02-16 20:28] LABS: ARTERIAL BLOOD BASE EXCESS -13.5 mmol/L; ARTERIAL BLOOD H2CO3 1.25 mmol/L (1.05-1.35); ARTERIAL BLOOD HCO3 14.6 mmol/L (20-24); ARTERIAL BLOOD O2 SATURATION 80.1 % (94-98); ARTERIAL BLOOD PCO2 41.4 mmHg (35-45); ARTERIAL BLOOD PO2 54.9 mmHg (80-100); ARTERIAL BLOOD TOTAL CO2 15.9 mmol/L (23-27)
[2020-02-16 20:35] LABS: ARTERIAL BLOOD FIO2 100%
[2020-02-16 20:36] LABS: ARTERIAL BLOOD PH 7.17 (7.35-7.45)
[2020-02-16] MEDS: DEXTROSE 5%-WATER 1000 ML 1,000 ML with SODIUM BICARBONATE 150 MEQ IV PRN ×2 (21:04)
[2020-02-16] MEDS: ATORVASTATIN CALCIUM 40 MG TABLET NG SCH (21:10)
[2020-02-16 21:39] LABS: ANION GAP 7 (5-19); BLOOD UREA NITROGEN 68 mg/dL (7-20); CALCIUM 7.1 mg/dL (8.4-10.2); CARBON DIOXIDE 19 mmol/L (22-30); CHLORIDE 120 mmol/L (98-107); GLUCOSE 363 mg/dL (75-110); POTASSIUM 5.6 mmol/L (3.6-5.0)
[2020-02-16] MEDS: SODIUM POLYSTYRENE SULFONATE 15 GM/60 ML PO SCH (22:51)
[2020-02-17] MEDS: INSULIN REG, HUMAN 100 UNIT/ML 3 ML VIAL (PYX) SUBCUT SCH ×2 (00:04→06:03)
[2020-02-17] MEDS: METOCLOPRAMIDE HCL INJ/PF 10 MG/2 ML SDV IV SCH (00:05)
[2020-02-17] MEDS: DEXAMETHASONE SOD PHOSPHATE INJ 4 MG/1 ML VIAL IV SCH ×5 (00:05→23:26)
[2020-02-17] MEDS: SODIUM POLYSTYRENE SULFONATE 15 GM/60 ML PO SCH ×4 (00:05→18:37)
[2020-02-17] MEDS: PIPERACILLIN/TAZOBACTAM 3.375 GM VIAL IV SCH ×2 (00:06→06:04)
[2020-02-17 02:07] LABS: ARTERIAL BLOOD BASE EXCESS -7.9 mmol/L; ARTERIAL BLOOD FIO2 100%; ARTERIAL BLOOD H2CO3 1.09 mmol/L (1.05-1.35); ARTERIAL BLOOD HCO3 17.6 mmol/L (20-24); ARTERIAL BLOOD O2 SATURATION 82.6 % (94-98); ARTERIAL BLOOD PCO2 36.2 mmHg (35-45); ARTERIAL BLOOD PO2 50.6 mmHg (80-100); ARTERIAL BLOOD TOTAL CO2 18.7 mmol/L (23-27)
[2020-02-17] MEDS: PROPOFOL 1,000 MG/100 ML INFUS..BTL IV PRN ×5 (02:43→23:26)
[2020-02-17] MEDS: METOPROLOL TARTRATE PF/INJ 5 MG/5 ML SDV IV PRN ×3 (02:46→20:27)
[2020-02-17] MEDS ORDERED: SODIUM BICARBONATE 8.4% INJ 50 MEQ/50 ML DISP.SYRIN ONE ×2 (03:14→06:42)
[2020-02-17] MEDS: DEXTROSE 5%-WATER 1000 ML 1,000 ML with SODIUM BICARBONATE 150 MEQ IV PRN ×2 (03:36)
[2020-02-17] MEDS ORDERED: PIPERACILLIN/TAZOBACTAM 3.375 GM VIAL IV ONE (05:31)
[2020-02-17] MEDS: HEPARIN SOD (PORCINE) 5,000 UNIT/ML 1 ML VIAL SUBCUT SCH ×3 (06:03→21:37)
[2020-02-17] MEDS ORDERED: 1/2 NORMAL SALINE 1,000 ML with SODIUM BICARBONATE 100 MEQ IV PRN ×2 (06:38)
[2020-02-17 06:44] LABS: HEMATOCRIT 36.4 % (37.9-51.0); HEMOGLOBIN 11.8 g/dL (13.5-17.0); MEAN CORPUSCULAR HEMOGLOBIN 30.4 pg (27.0-33.4); MEAN CORPUSCULAR HGB CONC 32.3 g/dL (32.0-36.0); MEAN CORPUSCULAR VOLUME 94 fl (80-97); PLATELET COUNT 131 10^3/uL (150-450); RED BLOOD COUNT 3.87 10^6/uL (4.35-5.55); RED CELL DISTRIBUTION WIDTH 17.2 % (11.5-14.0); WHITE BLOOD COUNT 7.2 10^3/uL (4.0-10.5)
[2020-02-17 06:50] LABS: ARTERIAL BLOOD BASE EXCESS -6.2 mmol/L; ARTERIAL BLOOD H2CO3 1.07 mmol/L (1.05-1.35); ARTERIAL BLOOD HCO3 18.8 mmol/L (20-24); ARTERIAL BLOOD O2 SATURATION 86.1 % (94-98); ARTERIAL BLOOD PCO2 35.4 mmHg (35-45); ARTERIAL BLOOD PH 7.34 (7.35-7.45); ARTERIAL BLOOD PO2 53.3 mmHg (80-100); ARTERIAL BLOOD TOTAL CO2 19.8 mmol/L (23-27)
[2020-02-17] MEDS: LINEZOLID 600 MG/300 ML RTUPB IV SCH ×2 (06:53→18:38)
[2020-02-17 06:54] LABS: INTERNATIONAL RATION (INR) 1.16
[2020-02-17 07:01] LABS: ARTERIAL BLOOD FIO2 100%
[2020-02-17 07:14] LABS: ANION GAP 9 (5-19); BLOOD UREA NITROGEN 74 mg/dL (7-20); CARBON DIOXIDE 22 mmol/L (22-30); CHLORIDE 116 mmol/L (98-107)
[2020-02-17 07:21] LABS: PREALBUMIN 9.3 mg/dL (17.6-36.0)
[2020-02-17 08:14] LABS: POTASSIUM 3.7 mmol/L (3.6-5.0)
[2020-02-17] MEDS: DILTIAZEM HCL/D5W 125 MG/125 ML RTUINJ IV PRN (08:18)
[2020-02-17 08:19] LABS: CALCIUM 6.6 mg/dL (8.4-10.2); GLUCOSE 491 mg/dL (75-110)
--- NOTE | 2020-02-17 08:25 | RADIOLOGY REPORT (SQ) ---
EXAM DESCRIPTION: CHEST SINGLE VIEW IMAGES COMPLETED DATE/TIME: 02/17/2020 6:36 am REASON FOR STUDY: vent COMPARISON: 02/16/2020 EXAM PARAMETERS: NUMBER OF VIEWS: One view. TECHNIQUE: Single frontal radiographic view of the chest acquired. RADIATION DOSE: NA LIMITATIONS: None. FINDINGS: LUNGS AND PLEURA: PATCHY BIBASILAR OPACITIES, SIMILAR TO PRIOR. LIKELY SMALL BILATERAL PL EURAL EFFUSIONS, RIGHT GREATER THAN LEFT. NO PNEUMOTHORAX. MEDIASTINUM AND HILAR STRUCTURES: STABLE. HEART AND VASCULAR STRUCTURES: ENLARGED, STABLE. BONES: NO ACUTE FINDINGS. DEGENERATIVE CHANGES AT THE SHOULDERS. STERNOTOMY WIRES. HARDWARE: ENDOTRACHEAL TUBE TIP OVERLIES LOWER THORACIC TRACHEA, STABLE. RIGHT INTERNAL JUGULAR CENT RAL VENOUS CATHETER TIP OVERLIES RIGHT ATRIUM. ENTERIC TUBE TIP OVERLIES GASTRIC BODY. STERNOTOMY H ARDWARE. ATRIAL APPENDAGE CLIP. LIKE CHEST OVERLIES CHEST. OTHER: NONE. IMPRESSION: STABLE PATCHY BIBASILAR OPACITIES AND SMALL BILATERAL EFFUSIONS, RIGHT GREATER THAN LEFT . ENDOTRACHEAL TUBE TIP OVERLIES LOWER THORACIC TRACHEA, 2.2 CM ABOVE THE GILES. ADDITIONAL LINES AND TUBES ABOVE. TECHNICAL DOCUMENTATION: JOB ID: [id number] 2010 [email or web address]- All Rights Reserved Reading location - IP/workstation name: [email or web address]
[2020-02-17] MEDS: CLOPIDOGREL BISULFATE 75 MG TABLET NG SCH (09:10)
[2020-02-17] MEDS: CHOLECALCIFEROL (D3) 1,000 UNIT (25 MCG) TABLET NG SCH (09:10)
[2020-02-17] MEDS: ZINC SULFATE 220 MG CAPSULE NG SCH (09:10)
[2020-02-17] MEDS: ASPIRIN 81 MG TABLET, CHEWABLE NG SCH (09:10)
[2020-02-17] MEDS: ASCORBIC ACID 500 MG TABLET NG SCH ×2 (09:10→18:38)
[2020-02-17] MEDS: FLUTICASONE NASAL SPRAY 50 MCG/SPRY 120 SPRAY/16 GM NASL SCH ×2 (09:12→21:38)
[2020-02-17] MEDS ORDERED: INSULIN LISPRO 100 UNIT/ML 3 ML VIAL ONE (09:29)
[2020-02-17] MEDS: INSULIN LISPRO 100 UNIT/ML 3 ML VIAL SUBCUT SCH ×4 (09:41→21:38)
[2020-02-17] MEDS: SACUBITRIL/VALSARTAN 49 MG/51 MG TABLET NG SCH ×2 (09:41→17:13)
[2020-02-17] MEDS ORDERED: LIDOCAINE 1% INJ-PF (10 MG/ML) 30 ML SDV ONE (12:59)
--- NOTE | 2020-02-17 13:35 | PDOC CONSULTATION ---
Consultation Consult Date: 02/17/20 Provider Consulted: Oneal REICH Consult reason:: PRERNA in CKD 3 History of Present Illness Admission Date/PCP: 02/08/20 13:[facility] [place] [facility] History of Present Illness: INES TURNER JR is a 69 year old male with a background history of chronic hypertension, with apparent LV function of around 30-35% during an earlier admission this month, morbid obesity, sleep apnea was admitted with history of progressive shortness of breath, fatigue. A couple of days into his current admission , the patient went into progressive respiratory failure was intubated and transferred to the ICU. He was also been found to be COVID positive. Patient was recently admitted and discharged on the after being admitted with history of acute on chronic heart failure. At that time his baseline creatinine was around 1.5 and he was initiated on Entresto following which at t he time of discharge his creatinine was 1.8. Patient follows with the [place] and does not apparently have a jewel hole driller. During his current admission patient was initially initiated on diuretics. Ther castro he was started on antibiotics for his COVID pneumonia. He had an echocardiogram done on the of this month that I reviewed which shows a depressed LVEF of approximately 25%. It is a poor study and the right heart was not quantified. Initially the patient was stable from a renal standpoint of view and was making good amounts of urine. However over the last couple of days he has become oligo-anuric with rising creatinine. He is also become rather more anasarcous. Review of his medications shows she is on high-dose of Pip - Tazo regards his renal functions. His blood pressure has also been tenuous. Past Medical History Cardiac Medical History: Reports: Coronary Artery Disease, Hypertension-primary Denies: Atrial Fibrillation, DVT, Hyperlipidemia, Myocardial Infarction, Pulmonary Embolism Pulmonary Medical History: Reports: Respiratory Failure, Sleep Apnea Denies: Asthma, Bronchitis, Chronic Obstructive Pulmonary Disease (COPD), Pneumonia Neurological Medical History: Denies: Seizures Endocrine Medical History: Denies: Diabetes Mellitus Type 1, Diabetes Mellitus Type 2, Hyperthyroidism, Hypothyroidism Renal/ Medical History: Reports: Benign Prostatic Hyperplasia, Chronic Kidney Disease Stage III GI Medical History: Denies: Cirrhosis, Crohn's Disease, Gastroesophageal Reflux Disease, Hepatit is, Ulcerative Colitis Musculoskeltal Medical History: Denies: Arthritis, Gout Skin Medical History: Denies: Eczema, Psoriasis Psychiatric Medical History: Denies: Depression Past Surgical History Past Surgical History: Reports: Cardiac Catheterization, Coronary Artery Bypass Graft Social History Smoking Status: Former Smoker Last Time Smoked: 1999 Frequency of Alcohol Use: None Hx Recreational Drug Use: No Drugs: None Hx Prescription Drug Abuse: No - Advance Directive Resuscitation Status: Full Code Family History Parental Family History Reviewed: No - Patient intubated and sedated. Children Family History Reviewed: No Sibling(s) Family History Reviewed.: No Medication/Allergy Home Medications: Aspirin [Aspirin 81 mg Chewable Tablet] 81 mg PO DAILY 01/29/20 Clopidogrel Bisulfate [Plavix 75 mg Tablet] 75 mg PO DAILY #30 tablet 02/03/20 Metoprolol Succinate [Toprol Xl 50 mg Tab.sr] 50 mg PO DAILY #30 tab.sr.24h 02/03/20 Sacubitril/Valsartan [Entresto 49 mg/51 mg Tablet] 1 tab PO Q12 #60 tablet 02/03/20 Allergies/Adverse Reactions: No Known Allergies Allergy (Verified 02/08/20 10:21) Review of Systems ROS unobtainable: Due to endotracheal tube - Therefore chart review was done and discussions were done with the treating nurse. Physical Exam Vital Signs: Temp Pulse Resp BP Pulse Ox 97.3 F 97 21 H 109/36 L 99 02/17/20 12:17 02/17/20 00:00 02/17/20 12:17 02/17/20 12:17 02/17/20 12:17 Pulse Oximeter Nocturnal Start: 02/08/20 1 3:55 Freq: RTQ4 Status: Complete Protocol: Document 02/09/20 04:00 LRO (Rec: 02/09/20 05:38 LRO [id number]) Nocturnal Pulse Oximetry Equipment Usage Equipment in Use Oxygen Delivery Method (includes room Room Air air) O2 Sat by Pulse Oximetry (92-100) 95 Continuous SpO2 Machine # 2 Pulse Oximeter Nocturnal Start: 02/10/20 11:39 Freq: RTQ4 Status: Complete Protocol: Document 02/11/20 04:06 PMU (Rec: 02/11/20 05:06 PMU [email or web address]) Nocturnal Pulse Oximetry Equipment Usage Equipment in Use Oxygen Delivery Method (includes room Room Air air) O2 Sat by Pulse Oximetry (92-100) 93 Continuous SpO2 Machine # N2 Intake & Output 02/16/20 02/17/20 02/18/20 06:59 06:59 06:59 Intake Total 2268 2107 1453 Output Total 1810 1055 140 Balance 458 1052 1313 Weight 107.6 kg 108.3 kg Exam: Currently intubated and sedated. Eye exam: PRESENT: EOMI, PERRLA. ABSENT: scleral icterus Respiratory exam: PRESENT: clear to auscultation kevyn. ABSENT: crackles Cardiovascular exam: PRESENT: +S1, +S2 GI/Abdominal exam: PRESENT: normal bowel sounds, soft. ABSENT: organomegaly, tenderness Extremities exam: PRESENT: +1 edema Skin exam: ABSENT: erythema, mottled, rash Results Laboratory Results: 02/17/20 06:24 02/17/20 06:24 02/16/20 02/16/20 02/17/20 20:05 20:50 01:00 WBC RBC Hgb Hct MCV MCH MCHC RDW Plt Count Carbonic Acid 1.25 1.09 HCO3/H2CO3 Ratio 11:1 16:1 ABG pH 7.17 L* 7.30 L ABG pCO2 41.4 36.2 ABG pO2 54.9 L 50.6 L ABG HCO3 14.6 L 17.6 L ABG O2 Saturation 80.1 L 82.6 L ABG Base Excess -13.5 -7.9 FiO2 100% 100% Sodium 146.2 H Potassium 5.6 H Chloride 120 H Carbon Dioxide 19 L Anion Gap 7 BUN 68 H Creatinine 2.78 H Est GFR ( Amer) 27 L Glucose 363 H Calcium 7.1 L Phosphorus Magnesium Prealbumin 02/17/20 02/17/20 02/17/20 06:24 06:24 06:24 WBC 7.2 RBC 3.87 L Hgb 11.8 L Hct 36.4 L MCV 94 MCH 30.4 MCHC 32.3 RDW 17.2 H Plt Count 131 L Carbonic Acid 1.07 HCO3/H2CO3 Ratio 17:1 ABG pH 7.34 L ABG pCO2 35.4 ABG pO2 53.3 L ABG HCO3 18.8 L ABG O2 Saturation 86.1 L ABG Base Excess -6.2 FiO2 100% Sodium 147.0 H Potassium 3.7 D Chloride 116 H Carbon Dioxide 22 Anion Gap 9 BUN 74 H Creatinine 3.06 H Est GFR ( Amer) 25 L Glucose 491 H* Calcium 6.6 L* Phosphorus 4.0 Magnesium 2.9 H Prealbumin 9.3 L 02/15/20 18:46 Tracheal Aspirate Gram Stain - Final 02/08/20 02/08/20 09:49 13:11 Troponin I 0.160 0.155 NT-Pro-B Natriuret Pep 5540 H Impressions: Hip/Pelvis X-Ray 02/08/20 00:00 IMPRESSION: No acute fracture. Severe degenerative changes of the left hip. Knee X-Ray 02/08/20 00:00 IMPRESSION: NEGATIVE STUDY OF THE RIGHT KNEE. NO RADIOGRAPHIC EVIDENCE OF ACUTE INJURY. Head CT 02/08/20 10:19 IMPRESSION: MILD CHRONIC CHANGES OF ATROPHY AND MICROVASCULAR ISCHEMIA. NO ACUTE PROCESS. EVIDENCE OF ACUTE STROKE: NO. Chest X-Ray 02/17/20 05:00 IMPRESSION: STABLE PATCHY BIBASILAR OPACITIES AND SMALL BILATERAL EFFUSIONS, RIGHT GREATER THAN LEFT. ENDOTRACHEAL TUBE TIP OVERLIES LOWER THORACIC TRACHEA, 2.2 CM ABOVE THE GILES. ADDITIONAL LINES AND TUBES ABOVE. Assessment & Plan - Diagnosis (1) Acute kidney injury superimposed on chronic kidney disease Is this a current diagnosis for this admission?: Yes Plan: Currently oligo-anuric. Multifactorial. His current Covid infection/ATN along with worsening congestive heart failure has worsening renal failure. Me dications needs to be adjusted to a GFR of less than 20 cc/min. I will cut back on his Zosyn even though 1 would also have to consider AIN from this medication. Meanwhile initiate him on low-dose of gentle diuresis. If he continues to trend in this direction he will need to be on renal replacements in the next 24-48 hours. I would recommend placement of a temporary dialysis catheter in anticipa tion of initiation of dialysis in that given period of time. I am also going to hold back on his Entresto for the current time. Discussed this with Jessica his treating nurse. (2) Acute on chronic combined systolic (congestive) and diastolic (congestive) heart failure Is this a current diagnosis for this admission?: Yes Plan: Patient has got apparently underlying ischemic cardiomyopathy with additional insults from acute rapid A. fib. 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 (3) Acute respiratory failure due to COVID-19 Is this a current diagnosis for this admission?: Yes Plan: Currently intubated and sedated. (4) Hypotension Is this a current diagnosis for this admission?: Yes Plan: Multifactorial including sepsis/heart failure/COVID. (5) Hypocalcemia Plan: Recommend olqsi-xop-uucfz IV calcium. We will also start him on p.o. calcitriol through his NG tube. Get appropriate labs including checking his magnesium. (6) Metabolic acidosis Plan: Markedly improved with IV bicarbonate bolus/infusion. Currently will hold it given his worsening heart failure status.The better intervention would be to initiate hemodialysis in the next 24-48 hours. (7) Obesity (BMI 30-39.9) Is this a current diagnosis for this admission?: Yes Plan: Morbid. Likely one of the factors for sleep apnea. (8) MARK (obstructive sleep apnea) Is this a current diagnosis for this admission?: Yes Plan: Status quo. Apparently has not been using his CPAP which has not yet been presc ribed by [facility] as per perusal of his notes. (9) Atrial fibrillation Plan: Patient was on IV Cardizem drip and the rate better. (10) Hyperglycemia Plan: Patient possibly prediabetic and has been brought forward with initiation of dexamethasone. Management as per her continuing education director. (11) COVID-19 virus infection Plan: As mentioned earlier. Being managed by continuing education director.
[2020-02-17] MEDS ORDERED: PIPERACILLIN/TAZOBACTAM 3.375 GM VIAL IV SCH (14:00)
--- NOTE | 2020-02-17 14:10 | Operative Report ---
Operative Report DATE OF SURGERY: 02/17/20 PREOPERATIVE DIAGNOSIS: 1. Respiratory failure. 2. COVID-19 positive. 3. A cute renal failure POSTOPERATIVE DIAGNOSIS: Same, hypercoagulable state OPERATION: 1. Unsuccessful attempted right femoral vein cannulation. 2. Amari cement of left common femoral vein tri-Alysis catheter SURGEON: MARCELINO LEVINE ANESTHESIA: Local TISSUE REMOVED OR ALTERED: Clot COMPLICATIONS: None ESTIMATED BLOOD LOSS: 25 cc INTRAOPERATIVE FINDINGS: See below PROCEDURE: The patient was treated in room 602; because of his known COVID status, appropriate precautions were utilized, and providers were appropriately donned with PPE. The tray for the catheter insertion was set up outside of the room. The nurse prepared the patient by elevating the pannus with tape in a cephalad direction. Both groins were prepped and draped with Betadine Dr. Levine entered the room. Surgical plan surgical timeout were conducted. Initially we approached the right groin. Skin was anesthetized with 1% plain lidocaine. The right common femoral vein was cannulated without difficulty based on utilization of anatomic landmarks. The conventional 0.030 guidewire would not thread successfully. Therefore a 0.030 Glidewire was threaded into the right common femoral vein, which seemed to accept the wire without difficulty. I then advanced to the small and medium dilators over the Glidewire; finally the trial assist catheter was threaded over the guidewire, guidewire removed. There was venous return through the large lumens but extremely sluggish. Throughout the procedure patient's blood was noted to clot almost immediately. The venous blood was also extremely deoxygenated based on visual examination. Because of the catheter was not functioning satisfactorily, coupled with the initial difficulty advancing the first guidewire, the right groin was aborted. There was no significant hematoma We now approached the left groin again using the patient's anatomical landmarks. Skin was anesthetized 1% plain lidocaine, left common femoral vein cannulated without difficulty using the 18-gauge needle, and the conventional 0.030 guidewire advanced without difficulty. The track was dilated up with the small and medium sized dilators, then the trial assist catheter was advanced into position. Guide wire removed, and there was an immediate return of venous blood through all 3 lm. All 3 lm aspirated and flushed without difficulty, and no bubbling. They were flushed with dilute heparin. Catheter secured to the skin at 2 sites with 3-0 Ethilon suture Biopatch and sterile dressing, OpSite applied. No hematoma noted. Recommendations: 1. May use tri-Alysis catheter for fluids, and hemodialysis. 2. Dr. Levine has instructed the nurse to load each large lumen of the tri- Alysis catheter with 2500 units of heparin, and to run normal saline at KVO t hrough the central, purple lumen. Hopefully this will keep the catheter from thrombosing. 3. I discussed the above with biology internship at bedside
--- NOTE | 2020-02-17 14:25 | PDOC CRITICAL CARE PROG REPORT ---
General Date:: 02/17/20 Ventilator Day:: 5 Hospital Day:: 9 Resuscitation Status: Full Code Events in the past 12 to 24 Hours:: The patient remains sedated on the ventialtor He ios requiring 100% FI02. zHis 02 sats are running about 89-90% The patient just had a vasc cath placed by surgery. The plan is to begin dialysis tomorrow. CXR shows right basilalr inflitrate The patient is up at least 13 kliters over thpast 4 days of fluid. Reason for ICU Addmission:: Acute respiratory distress and need for intubation Physical Exam Vital Signs: Temp Pulse Resp BP Pulse Ox 97.3 F 97 21 H 109/36 L 99 02/17/20 12:17 02/17/20 00:00 02/17/20 12:17 02/17/20 12:17 02/17/20 12:17 Pulse Oximeter Nocturnal Start: 02/08/20 13:55 Freq: RTQ4 Status: Complete Protocol: Document 02/09/20 04:00 LRO (Rec: 02/09/20 05:38 LRO [id number]) Nocturnal Pulse Oximetry Equipment Usage Equipment in Use Oxygen Delivery Method (includes room Room Air air) O2 Sat by Pulse Oximetry (92-100) 95 Continuous SpO2 Machine # 2 Pulse Oximeter Nocturnal Start: 02/10/20 11:39 Freq: RTQ4 Status: Complete Protocol: Document 02/11/20 04:06 PMU (Rec: 02/11/20 05:06 PMU [email or web address]) Nocturnal Pulse Oximetry Equipment Usage Equipment in Use Oxygen Delivery Method (includes room Room Air air) O2 Sat by Pulse Oximetry (92-100) 93 Continuous SpO2 Machine # N2 Intake & Output 02/16/20 02/17/20 02/18/20 06:59 06:59 06:59 Intake Total 2268 2107 1453 Output Total 1810 1055 140 Balance 458 1052 1313 Weight 107.6 kg 108.3 kg 108.3 kg Weight/Height Weight 108.3 kg Height 5 ft 9 in General appearance: PRESENT: morbidly obese Head exam: PRESENT: atraumatic, normocephalic Eye exam: PRESENT: PERRLA Respiratory exam: PRESENT: decreased breath sounds. ABSENT: accessory muscle use Pulses: PRESENT: normal dorsalis pedis pul GI/Abdominal exam: PRESENT: diminished bowel sounds, distended. ABSENT: tenderness Rectal exam: PRESENT: deferred Gentrourinary exam: ABSENT: ecchymosis Extremities exam: ABSENT: calf tenderness, clubbing Neurological exam: ABSENT: alert - The patient is heavily sedated on the ventialtor. Laboratory/Radiographs Laboratory Results: 02/17/20 06:24 02/17/20 06:24 02/16/20 02/16/20 02/17/20 20:05 20:50 01:00 WBC RBC Hgb Hct MCV MCH MCHC RDW Plt Count Carbonic Acid 1.25 1.09 HCO3/H2CO3 Ratio 11:1 16:1 ABG pH 7.17 L* 7.30 L ABG pCO2 41.4 36.2 ABG pO2 54.9 L 50.6 L ABG HCO3 14.6 L 17.6 L ABG O2 Saturation 80.1 L 82.6 L ABG Base Excess -13.5 -7.9 FiO2 100% 100% Sodium 146.2 H Potassium 5.6 H Chloride 120 H Carbon Dioxide 19 L Anion Gap 7 BUN 68 H Creatinine 2.78 H Est GFR ( Amer) 27 L Glucose 363 H Calcium 7.1 L Phosphorus Magnesium Prealbumin 02/17/20 02/17/20 02/17/20 06:24 06:24 06:24 WBC 7.2 RBC 3.87 L Hgb 11.8 L Hct 36.4 L MCV 94 MCH 30.4 MCHC 32.3 RDW 17.2 H Plt Count 131 L Carbonic Acid 1.07 HCO3/H2CO3 Ratio 17:1 ABG pH 7.34 L ABG pCO2 35.4 ABG pO2 53.3 L ABG HCO3 18.8 L ABG O2 Saturation 86.1 L ABG Base Excess -6.2 FiO2 100% Sodium 147.0 H Potassium 3.7 D Chloride 116 H Carbon Dioxide 22 Anion Gap 9 BUN 74 H Creatinine 3.06 H Est GFR ( Amer) 25 L Glucose 491 H* Calcium 6.6 L* Phosphorus 4.0 Magnesium 2.9 H Prealbumin 9.3 L 02/15/20 18:46 Tracheal Aspirate Gram Stain - Final 02/08/20 02/08/20 09:49 13:11 Troponin I 0.160 0.155 NT-Pro-B Natriuret Pep 5540 H Impressions: Hip/Pelvis X-Ray 02/08/20 00:00 IMPRESSION: No acute fracture. Severe degenerative changes of the left hip. Knee X-Ray 02/08/20 00:00 IMPRESSION: NEGATIVE STUDY OF THE RIGHT KNEE. NO RADIOGRAPHIC EVIDENCE OF ACUTE INJURY. Head CT 02/08/20 10:19 IMPRESSION: MILD CHRONIC CHANGES OF ATROPHY AND MICROVASCULAR ISCHEMIA. NO ACUTE PROCESS. EVIDENCE OF ACUTE STROKE: NO. Chest X-Ray 02/17/20 05:00 IMPRESSION: STABLE PATCHY BIBASILAR OPACITIES AND SMALL BILATERAL EFFUSIONS, RIGHT GREATER THAN LEFT. ENDOTRACHEAL TUBE TIP OVERLIES LOWER THORACIC TRACHEA, 2.2 CM ABOVE THE GILES. ADDITIONAL LINES AND TUBES ABOVE. Assessment and Plan - Diagnosis (1) Acute kidney injury superimposed on chronic kidney disease Is this a current diagnosis for this admission?: Yes Plan: Historical baseline creatinine appears to be 1.6-1.8 Renal function continues to decline Continue to avoid nephrotoxins as able 02/16 His rwnal fn is getting worse. His last crreatine is 2.78. He has become progressively oliguric particualrly in thepast 24 hours. His volume status shows a t least 113 kilos positive in thepast 4 days. (2) Acute on chronic combined systolic (congestive) and diastolic (congestive) heart failure Is this a current diagnosis for this admission?: Yes Plan: Patient continues to appear euvolemic clinically 24-hour fluid balance -580 Daily weights do not correlate with volume status. Today he is at his admission weight, initially he was down 2.3 kg and has gained weight daily in spite of having slight negative fluid balance At this time patient will not tolerate diuretic 2/2 hypotension Sacubitril/valsartan stopped 02/16 The patient has a long history of cardiac dysfn. His LVEF is said to be abouit 25-30%. His Pro BNP is quite elevated. (3) Acute respiratory failure due to COVID-19 Is this a current diagnosis for this admission?: Yes Plan: Remains vented. Unable to wean much. Will try small moves. FiO2 TO 80% RR to16. Prognosis at his age is not good. Given the multitude of issues this patient may not survive this illness (4) Atrial fibrillation Is this a current diagnosis for this admission?: Yes Plan: The patient is in a a dialtiazem drip atr 10 mg/hr. I started po Cardizem as well, in attempt to be able to wean off the drip. (5) COVID-19 virus infection Is this a current diagnosis for this admission?: Yes (6) Diabetes 1.5, managed as type 2 Is this a current diagnosis for this admission?: Yes Plan: The p[atient's blood sugares remaind rather elevated. he has been getting a l;arge dose of decaron that we will be decreasiung. If need be we will addd some Levimir of Lantua. Critical Time Critical Time (minutes): 40 Level of Care: ICU -: 1. The care of a critical patient is a dynamic process. This note is a compliance representative synopsis but static in nature. The timeframe for treatments given in order is not necessarily the actual time these treatments may have been done. 2. This patient requires critical care secondary to ongoing requirements for therapy not offered or safe outside the critical care environment. Transfer to a lower level of care will result in altered life or limb morbidity and mortality. 3. Multidisciplinary rounds completed. 4. ABCDE bundle addressed.
[2020-02-17] MEDS ORDERED: HEPARIN SOD (PORCINE) 1,000 UNIT/ML 10 ML VIAL MC ONE (15:00)
[2020-02-17] MEDS: DILTIAZEM HCL 60 MG TABLET NG SCH ×3 (15:01→23:26)
[2020-02-17] MEDS: FUROSEMIDE INJ/PF 20 MG/2 ML SDV IV SCH ×2 (15:02→21:38)
[2020-02-17] MEDS: CALCITRIOL 1 MCG/ML ORAL SOLN 15 ML NG SCH (15:24)
[2020-02-17] MEDS: PIPERACILLIN SODIUM/TAZOBACTAM 2.25 GM in NORMAL SALINE 50 ML IV SCH ×2 (15:24→22:31)
[2020-02-17] MEDS: FENTANYL CITRATE INJ/PF 100 MCG/2 ML AMPUL IV PRN (17:12)
[2020-02-17 18:34] LABS: ARTERIAL BLOOD BASE EXCESS -4.9 mmol/L; ARTERIAL BLOOD H2CO3 1.03 mmol/L (1.05-1.35); ARTERIAL BLOOD HCO3 19.5 mmol/L (20-24); ARTERIAL BLOOD O2 SATURATION 92.4 % (94-98); ARTERIAL BLOOD PCO2 34.1 mmHg (35-45); ARTERIAL BLOOD PH 7.38 (7.35-7.45); ARTERIAL BLOOD PO2 64.5 mmHg (80-100); ARTERIAL BLOOD TOTAL CO2 20.5 mmol/L (23-27)
[2020-02-17 18:38] LABS: ARTERIAL BLOOD FIO2 65%
[2020-02-17] MEDS: ATORVASTATIN CALCIUM 40 MG TABLET NG SCH (21:38)
[2020-02-18] MEDS: INSULIN LISPRO 100 UNIT/ML 3 ML VIAL SUBCUT SCH ×6 (01:48→22:55)
[2020-02-18] MEDS: METOPROLOL TARTRATE PF/INJ 5 MG/5 ML SDV IV PRN ×3 (03:44→23:00)
[2020-02-18 04:57] LABS: ALBUMIN 2.2 g/dL (3.5-5.0); ALKALINE PHOSPHATASE 93 U/L (38-126); ANION GAP 15 (5-19); ASPARTATE AMINO TRANSFERASE 61 U/L (17-59); BILIRUBIN,DIRECT 0.7 mg/dL (0.0-0.4); BILIRUBIN,TOTAL 0.8 mg/dL (0.2-1.3); BLOOD UREA NITROGEN 87 mg/dL (7-20); CARBON DIOXIDE 21 mmol/L (22-30); CHLORIDE 112 mmol/L (98-107); GLUCOSE 350 mg/dL (75-110); POTASSIUM 4.1 mmol/L (3.6-5.0); TOTAL PROTEIN 4.7 g/dL (6.3-8.2); TRIGLYCERIDES 500 mg/dL (<150)
[2020-02-18 05:23] LABS: PHOSPHORUS 6.8 mg/dL (2.5-4.5)
[2020-02-18] MEDS: DILTIAZEM HCL 60 MG TABLET NG SCH ×4 (05:45→23:36)
[2020-02-18] MEDS: HEPARIN SOD (PORCINE) 5,000 UNIT/ML 1 ML VIAL SUBCUT SCH ×3 (05:46→22:56)
[2020-02-18] MEDS: PIPERACILLIN SODIUM/TAZOBACTAM 2.25 GM in NORMAL SALINE 50 ML IV SCH ×3 (05:46→22:56)
[2020-02-18] MEDS: LINEZOLID 600 MG/300 ML RTUPB IV SCH ×2 (05:46→18:45)
[2020-02-18] MEDS: FUROSEMIDE INJ/PF 20 MG/2 ML SDV IV SCH ×3 (05:47→22:57)
[2020-02-18] MEDS: DEXAMETHASONE SOD PHOSPHATE INJ 4 MG/1 ML VIAL IV SCH ×2 (05:47→12:09)
[2020-02-18] MEDS: CHOLECALCIFEROL (D3) 1,000 UNIT (25 MCG) TABLET NG SCH (09:45)
[2020-02-18] MEDS: ASCORBIC ACID 500 MG TABLET NG SCH ×2 (09:45→17:34)
[2020-02-18] MEDS: ZINC SULFATE 220 MG CAPSULE NG SCH (09:46)
[2020-02-18] MEDS: CLOPIDOGREL BISULFATE 75 MG TABLET NG SCH (09:46)
[2020-02-18] MEDS: ASPIRIN 81 MG TABLET, CHEWABLE NG SCH (09:46)
[2020-02-18] MEDS: PROPOFOL 1,000 MG/100 ML INFUS..BTL IV PRN ×3 (09:47→23:36)
[2020-02-18] MEDS: FLUTICASONE NASAL SPRAY 50 MCG/SPRY 120 SPRAY/16 GM NASL SCH ×2 (13:16→22:56)
[2020-02-18] MEDS: DEXTROSE 5%-WATER 250 ML with NOREPINEPHRINE BITARTRATE 4 MG IV PRN ×2 (13:40)
[2020-02-18] MEDS ORDERED: HEPARIN SOD (PORCINE) 1,000 UNIT/ML 10 ML VIAL MC ONE (14:00)
[2020-02-18] MEDS ORDERED: DEXTROSE 5%-WATER 250 ML with NOREPINEPHRINE BITARTRATE 4 MG IV PRN ×2 (14:08)
--- NOTE | 2020-02-18 14:08 | PDOC PROGRESS REPORT ---
Subjective Progress Note for:: 02/18/20 Reason For Visit: Patient seen today in ICU. Remains intubated and sedated. Labs and medications were reviewed. Patient is becoming more anasarcous with decreasing urine output. Labs shows worsening renal functions. Given his underlying ischemic cardiomyopathy decision has been made to initiate hemodialysis and try to extricate least 2 -3 L of fluid as tolerated. Dialysis orders were reviewed with the treating dialysis nurse. Physical Exam Vital Signs: Temp Pulse Resp BP Pulse Ox 98.6 F 71 20 98/58 L 95 02/18/20 12:00 02/18/20 12:00 02/18/20 12:00 02/18/20 12:00 02/18/20 12:50 Pulse Oximeter Nocturnal Start: 02/08/20 13:55 Freq: RTQ4 Status: Complete Protocol: Document 02/09/20 04:00 LRO (Rec: 02/09/20 05:38 LRO [id number]) Nocturnal Pulse Oximetry Equipment Usage Equipment in Use Oxygen Delivery Method (includes room Room Air air) O2 Sat by Pulse Oximetry (92-100) 95 Continuous SpO2 Machine # 2 Pulse Oximeter Nocturnal Start: 02/10/20 11:39 Freq: RTQ4 Status: Complete Protocol: Document 02/11/20 04:06 PMU (Rec: 02/11/20 05:06 PMU [email or web address]) Nocturnal Pulse Oximetry Equipment Usage Equipment in Use Oxygen Delivery Method (includes room Room Air air) O2 Sat by Pulse Oximetry (92-100) 93 Continuous SpO2 Machine # N2 Intake & Output 02/17/20 02/18/20 02/19/20 06:59 06:59 06:59 Intake Total 2107 3249 302 Output Total 1055 1200 Balance 1052 2049 302 Weight 108.3 kg 109.2 kg Exam: Remains intubated and sedated Cardiovascular exam: PRESENT: +S1, +S2 GI/Abdominal exam: PRESENT: normal bowel sounds, soft. ABSENT: organomegaly, tenderness Extremities exam: PRESENT: pedal edema Results Laboratory Results: 02/17/20 06:24 02/18/20 03:50 02/17/20 02/18/20 02/18/20 18:25 03:50 03:50 Carbonic Acid 1.03 L HCO3/H2CO3 Ratio 18:1 ABG pH 7.38 ABG pCO2 34.1 L ABG pO2 64.5 L ABG HCO3 19.5 L ABG O2 Saturation 92.4 L ABG Base Excess -4.9 FiO2 65% Sodium 148.1 H Potassium 4.1 Chloride 112 H Carbon Dioxide 21 L Anion Gap 15 BUN 87 H Creatinine 4.30 H Est GFR ( Amer) 17 L Glucose 350 H Calcium 7.0 L* Phosphorus 6.8 H D Magnesium 3.1 H Total Bilirubin 0.8 AST 61 H Alkaline Phosphatase 93 Total Protein 4.7 L Albumin 2.2 L Triglycerides 500 H PTH Intact 657.7 H Blood Type Antibody Screen 02/18/20 03:50 Carbonic Acid HCO3/H2CO3 Ratio ABG pH ABG pCO2 ABG pO2 ABG HCO3 ABG O2 Saturation ABG Base Excess FiO2 Sodium Potassium Chloride Carbon Dioxide Anion Gap BUN Creatinine Est GFR ( Amer) Glucose Calcium Phosphorus Magnesium Total Bilirubin AST Alkaline Phosphatase Total Protein Albumin Triglycerides PTH Intact Blood Type O POSITIVE Antibody Screen NEGATIVE 02/15/20 18:46 Tracheal Aspirate Gram Stain - Final 02/15/20 18:46 Tracheal Aspirate Sputum Culture - Final Mrsa (Meth Resis Staph Aureus) Normal Betsey Absent 02/08/20 02/08/20 09:49 13:11 Troponin I 0.160 0.155 NT-Pro-B Natriuret Pep 5540 H Impressions: Hip/Pelvis X-Ray 02/08/20 00:00 IMPRESSION: No acute fracture. Severe degenerative changes of the left hip. Knee X-Ray 02/08/20 00:00 IMPRESSION: NEGATIVE STUDY OF THE RIGHT KNEE. NO RADIOGRAPHIC EVIDENCE OF ACUTE INJURY. Head CT 02/08/20 10:19 IMPRESSION: MILD CHRONIC CHANGES OF ATROPHY AND MICROVASCULAR ISCHEMIA. NO ACUTE PROCESS. EVIDENCE OF ACUTE STROKE: NO. Chest X-Ray 02/17/20 05:00 IMPRESSION: STABLE PATCHY BIBASILAR OPACITIES AND SMALL BILATERAL EFFUSIONS, RIGHT GREATER THAN LEFT. ENDOTRACHEAL TUBE TIP OVERLIES LOWER THORACIC TRACHEA, 2.2 CM ABOVE THE GILES. ADDITIONAL LINES AND TUBES ABOVE. Assessment & Plan - Diagnosis (1) Acute kidney injury superimposed on chronic kidney disease Is this a current diagnosis for this admission?: Yes Plan: Currently anuric. Patient has got worsening anasarca with deteriorating renal numbers in the background of ischemic cardiomyopathy with low EF. Initiated hemodialysis through a temporary catheter. Dialysis going well. Plan to remove at least 2 L of fluid as tolerated, given present hemodynamics. However will have to back off fluid extraction if blood pressure drops. Discussed and reviewed dialysis orders with the treating dialysis nurse. (2) Acute on chronic combined systolic (congestive) and diastolic (congestive) heart failure Is this a current diagnosis for this admission?: Yes Plan: Showing early signs of decompensation. However some of the anasarca we see is because of third spacing given his very low albumin levels. Would indicate starting him on IV albumin infusions for the time being. See the response to di alysis and fluid removal. It is quite possible that we may not be able to extract much of fluid from this otherwise edematous patient given the fact that most of this is possibly third spacing. He has gained approximately 6-7 kg since admission. Monitor. (3) Acute respiratory failure due to COVID-19 Is this a current diagnosis for this admission?: Yes Plan: Remains intubated and sedated. Patient most likely has COVID pneumonia given his bibasilar lung opacities on chest x-rays. Most likely a CT scan would confirm interstitial groundglass opacities in the same distribution. He is also growing MRSA in his sputum culture. He is currently on linezolid for that. Being managed by [id number] [id number] armor crewman. Monitor. (4) Hypotension Is this a current diagnosis for this admission?: Yes Plan: Currently stable. Monitor. (5) Hypocalcemia Plan: Improving. Monitor. Needs oetfg-egg-rnwmr IV calcium gluconate. (6) Metabolic acidosis Plan: Unstable. See response to hemodialysis. Currently off bicarb drip. Monitor. (7) MARK (obstructive sleep apnea) Is this a current diagnosis for this admission?: Yes (8) Atrial fibrillation Is this a current diagnosis for this admission?: Yes Plan: Currently rate controlled. Monitor. (9) Hyperglycemia Plan: As per m48 m60 armor crewman. (10) COVID-19 virus infection Is this a current diagnosis for this admission?: Yes Plan: As per m48 m60 armor crewman.
[2020-02-18] MEDS: CALCITRIOL 1 MCG/ML ORAL SOLN 15 ML NG SCH (17:36)
[2020-02-18] MEDS: ATORVASTATIN CALCIUM 40 MG TABLET NG SCH (22:56)
[2020-02-19] MEDS: NORMAL SALINE 1000 ML 1,000 ML IV PRN (01:00)
[2020-02-19] MEDS: INSULIN LISPRO 100 UNIT/ML 3 ML VIAL SUBCUT SCH ×6 (02:07→22:43)
[2020-02-19 04:37] LABS: ALBUMIN 2.1 g/dL (3.5-5.0); ALKALINE PHOSPHATASE 123 U/L (38-126); ANION GAP 12 (5-19); ASPARTATE AMINO TRANSFERASE 148 U/L (17-59); BILIRUBIN,DIRECT 0.7 mg/dL (0.0-0.4); BILIRUBIN,TOTAL 0.7 mg/dL (0.2-1.3); BLOOD UREA NITROGEN 87 mg/dL (7-20); CARBON DIOXIDE 22 mmol/L (22-30); CHLORIDE 108 mmol/L (98-107); GLUCOSE 281 mg/dL (75-110); POTASSIUM 4.3 mmol/L (3.6-5.0); TOTAL PROTEIN 4.4 g/dL (6.3-8.2)
[2020-02-19 04:59] LABS: CALCIUM 6.7 mg/dL (8.4-10.2)
[2020-02-19] MEDS ORDERED: HEPARIN SOD (PORCINE) 1,000 UNIT/ML 10 ML VIAL IV PRN (05:00)
[2020-02-19] MEDS: PROPOFOL 1,000 MG/100 ML INFUS..BTL IV PRN ×4 (05:20→22:52)
[2020-02-19] MEDS: PIPERACILLIN SODIUM/TAZOBACTAM 2.25 GM in NORMAL SALINE 50 ML IV SCH ×3 (05:41→22:44)
[2020-02-19] MEDS: DILTIAZEM HCL 60 MG TABLET NG SCH ×4 (05:42→23:06)
[2020-02-19] MEDS: FUROSEMIDE INJ/PF 20 MG/2 ML SDV IV SCH ×3 (05:43→22:45)
[2020-02-19] MEDS: HEPARIN SOD (PORCINE) 5,000 UNIT/ML 1 ML VIAL SUBCUT SCH ×3 (05:44→22:46)
[2020-02-19] MEDS: LINEZOLID 600 MG/300 ML RTUPB IV SCH ×2 (05:45→18:25)
[2020-02-19] MEDS: METOPROLOL TARTRATE PF/INJ 5 MG/5 ML SDV IV PRN ×4 (06:05→22:10)
[2020-02-19 08:38] LABS: HEPATITS B SURFACE ANTIGEN Negative (Negative)
[2020-02-19 09:07] LABS: ARTERIAL BLOOD BASE EXCESS -5.3 mmol/L; ARTERIAL BLOOD FIO2 65%; ARTERIAL BLOOD H2CO3 1.26 mmol/L (1.05-1.35); ARTERIAL BLOOD HCO3 20.7 mmol/L (20-24); ARTERIAL BLOOD O2 SATURATION 94.6 % (94-98); ARTERIAL BLOOD PCO2 41.7 mmHg (35-45); ARTERIAL BLOOD PH 7.31 (7.35-7.45); ARTERIAL BLOOD PO2 78.4 mmHg (80-100); ARTERIAL BLOOD TOTAL CO2 21.9 mmol/L (23-27)
--- NOTE | 2020-02-19 10:50 | PDOC PROGRESS REPORT ---
Subjective Progress Note for:: 02/19/20 Reason For Visit: Patient seen on dialysis today. He still in the ICU and remains intubated and sedated. Blood pressure is now quite tenuous in spite of being on pressors. Therefore extraction of fluid on dialysis is getting more difficult in spite of reducing his QB. Labs and medications were reviewed. Dialysis orders were reviewed with the treating dialysis nurse. Patient status discussed with breaker layer. Physical Exam Vital Signs: Temp Pulse Resp BP Pulse Ox 98.1 F 92 20 86/48 L 94 02/19/20 08:00 02/19/20 10:00 02/19/20 10:00 02/19/20 10:00 02/19/20 10:00 Pulse Oximeter Nocturnal Start: 02/08/20 13:55 Freq: RTQ4 Status: Complete Protocol: Document 02/09/20 04:00 LRO (Rec: 02/09/20 05:38 LRO [id number]) Nocturnal Pulse Oximetry Equipment Usage Equipment in Use Oxygen Delivery Method (includes room Room Air air) O2 Sat by Pulse Oximetry (92-100) 95 Continuous SpO2 Machine # 2 Pulse Oximeter Nocturnal Start: 02/10/20 11:39 Freq: RTQ4 Status: Complete Protocol: Document 02/11/20 04:06 PMU (Rec: 02/11/20 05:06 PMU [email or web address]) Nocturnal Pulse Oximetry Equipment Usage Equipment in Use Oxygen Delivery Method (includes room Room Air air) O2 Sat by Pulse Oximetry (92-100) 93 Continuous SpO2 Machine # N2 Intake & Output 02/18/20 02/19/20 02/20/20 06:59 06:59 06:59 Intake Total 3299 1440 1000 Output Total 6326 029 1632 Balance 2099 575 -1500 Weight 109.2 kg 113 kg Exam: Remains intubated and sedated. Cardiovascular exam: PRESENT: +S1, +S2 GI/Abdominal exam: PRESENT: normal bowel sounds, soft. ABSENT: organomegaly, tenderness Extremities exam: PRESENT: pedal edema - Part of anasarca. Results Laboratory Results: 02/17/20 06:24 02/19/20 03:50 02/19/20 02/19/20 02/19/20 03:50 03:50 08:50 Carbonic Acid 1.26 HCO3/H2CO3 Ratio 16:1 ABG pH 7.31 L ABG pCO2 41.7 ABG pO2 78.4 L ABG HCO3 20.7 ABG O2 Saturation 94.6 ABG Base Excess -5.3 FiO2 65% Sodium 141.6 Potassium 4.3 Chloride 108 H Carbon Dioxide 22 Anion Gap 12 BUN 87 H Creatinine 4.52 H Est GFR ( Amer) 16 L Glucose 281 H Calcium 6.7 L* Total Bilirubin 0.7 AST 148 H Alkaline Phosphatase 123 Total Protein 4.4 L Albumin 2.1 L Triglycerides 416 H 02/15/20 18:46 Tracheal Aspirate Gram Stain - Final 02/15/20 18:46 Tracheal Aspirate Sputum Culture - Final Mrsa (Meth Resis Staph Aureus) Normal Betsey Absent 02/08/20 02/08/20 09:49 13:11 Troponin I 0.160 0.155 NT-Pro-B Natriuret Pep 5540 H Impressions: Hip/Pelvis X-Ray 02/08/20 00:00 IMPRESSION: No acute fracture. Severe degenerative changes of the left hip. Knee X-Ray 02/08/20 00:00 IMPRESSION: NEGATIVE STUDY OF THE RIGHT KNEE. NO RADIOGRAPHIC EVIDENCE OF ACUTE INJURY. Head CT 02/08/20 10:19 IMPRESSION: MILD CHRONIC CHANGES OF ATROPHY AND MICROVASCULAR ISCHEMIA. NO ACUTE PROCESS. EVIDENCE OF ACUTE STROKE: NO. Chest X-Ray 02/17/20 05:00 IMPRESSION: STABLE PATCHY BIBASILAR OPACITIES AND SMALL BILATERAL EFFUSIONS, RIGHT GREATER THAN LEFT. ENDOTRACHEAL TUBE TIP OVERLIES LOWER THORACIC TRACHEA, 2.2 CM ABOVE THE GILES. ADDITIONAL LINES AND TUBES ABOVE. Assessment & Plan - Diagnosis (1) Acute kidney injury superimposed on chronic kidney disease Is this a current diagnosis for this admission?: Yes Plan: Currently anuric. Patient has got worsening anasarca with deteriorating renal numbers in the background of ischemic cardiomyopathy with low EF. Initiated hemodialysis through a temporary catheter. Dialysis is ongoing but extraction of fluid is getting more difficult as he is dropping his blood pressures in spite of pressors. Plan to remove at 1-2 L of fluid as tolerated, given present hemodynamics. However will have to back off fluid extraction if blood pressure drops.Ideally the patient needs to be on CRRT which unfortunately we do not have in-house. In an ideal situation the patient needs to be transferred to a tertiary care center. Discussed with breaker layer. Discussed and reviewed dialysis orders with the treating dialysis nurse. (2) Acute on chronic combined systolic (congestive) and diastolic (congestive) heart failure Is this a current diagnosis for this admission?: Yes Plan: Showing early signs of decompensation. However some of the anasarca we see is because of third spacing given his very low albumin levels. Would indicate starting him on IV albumin infusions for the time being. See the response to dialysis and fluid removal. It is quite possible that we may not be able to extract much of fluid from this otherwise edematous patient given the fact that most of this is possibly third spacing. (3) Acute respiratory failure due to COVID-19 Is this a current diagnosis for this admission?: Yes Plan: Remains intubated and sedated. He is also growing MRSA in his sputum culture. He is currently on linezolid for that. Being managed by breaker layer. Monitor. (4) Hypotension Is this a current diagnosis for this admission?: Yes Plan: Currently unstable. Monitor. (5) Hypocalcemia Plan: Improving. Corrected calcium is now close to near normal. Monitor. (6) Metabolic acidosis Plan: Unstable. See response to hemodialysis. Currently off bicarb drip. Monitor. (7) MARK (obstructive sleep apnea) Is this a current diagnosis for this admission?: Yes Plan: Status quo. (8) Atrial fibrillation Is this a current diagnosis for this admission?: Yes Plan: Currently rate controlled. Monitor. (9) Hyperglycemia Plan: As per breaker layer. (10) COVID-19 virus infection Is this a current diagnosis for this admission?: Yes Plan: As per breaker layer.
[2020-02-19] MEDS: DEXAMETHASONE SOD PHOSPHATE INJ 4 MG/1 ML VIAL IV SCH (10:56)
[2020-02-19] MEDS: CHOLECALCIFEROL (D3) 1,000 UNIT (25 MCG) TABLET NG SCH (10:59)
[2020-02-19] MEDS: ASPIRIN 81 MG TABLET, CHEWABLE NG SCH (11:00)
[2020-02-19] MEDS: CLOPIDOGREL BISULFATE 75 MG TABLET NG SCH (11:00)
[2020-02-19] MEDS: ZINC SULFATE 220 MG CAPSULE NG SCH (11:00)
[2020-02-19] MEDS: ASCORBIC ACID 500 MG TABLET NG SCH ×2 (11:00→18:26)
[2020-02-19] MEDS: FLUTICASONE NASAL SPRAY 50 MCG/SPRY 120 SPRAY/16 GM NASL SCH ×2 (11:01→22:46)
--- NOTE | 2020-02-19 11:04 | PDOC CRITICAL CARE PROG REPORT ---
General Date:: 02/19/20 ICU Day:: 10 Ventilator Day:: 6 Resuscitation Status: Full Code Events in the past 12 to 24 Hours:: The patient remains sedated on the ventialtor He is requiring 100% FI02. zHis 02 sats are running about 89-90% The patient just had a vasc cath placed by surgery. The plan is to begin dialysis tomorrow. CXR shows right basilalr inflitrate The patient is up at least 13 kliters over thpast 4 days of fluid. 02/17 The patient was proned yesterday about 4PM. He remains proned at this time. I have decreased decadron to 6mg qd for the next few days. Blood sugars have been quite elevated. The patient had a dialysis catheter placed yesterday. He will begin dialysis today. heart rate remains reasonably controlled. Potassium better today at 4.1 The patient remains on FI02 of 65%a and PEEP of 10. 02/18 the patient remains on about 60% FI02. We did not prone him yesterday. I spoke to his and brought her up to seed. I told her he remains critically ill. Unclear when and if he will come off the ventilaltor. Dialysis has been inefficient for fluid remova;l given his hemodynamaics. CRRT would be better. We don't do it here and it would be difficult to transfer a COvid + patient at thei point in time.Blood sugars are elevated. I added lantus 10 units qd to regimen. Reason for ICU Addmission:: Acute respiratory distress and need for intubation Physical Exam Vital Signs: Temp Pulse Resp BP Pulse Ox 98.1 F 92 20 86/48 L 94 02/19/20 08:00 02/19/20 10:00 02/19/20 10:00 02/19/20 10:00 02/19/20 10:00 Pulse Oximeter Nocturnal Start: 02/08/20 13:55 Freq: RTQ4 Status: Complete Protocol: Document 02/09/20 04:00 LRO (Rec: 02/09/20 05:38 LRO [id number]) Nocturnal Pulse Oximetry Equipment Usage Equipment in Use Oxygen Delivery Method (includes room Room Air air) O2 Sat by Pulse Oximetry (92-100) 95 Continuous SpO2 Machine # 2 Pulse Oximeter Nocturnal Start: 02/10/20 11:39 Freq: RTQ4 Status: Complete Protocol: Document 02/11/20 04:06 PMU (Rec: 02/11/20 05:06 PMU [email or web address]) Nocturnal Pulse Oximetry Equipment Usage Equipment in Use Oxygen Delivery Method (includes room Room Air air) O2 Sat by Pulse Oximetry (92-100) 93 Continuous SpO2 Machine # N2 Intake & Output 02/18/20 02/19/20 02/20/20 06:59 06:59 06:59 Intake Total 3299 1440 1000 Output Total 2193 539 7486 Balance 2099 575 -1500 Weight 109.2 kg 113 kg Weight/Height Weight 113 kg Height 5 ft 9 in General appearance: PRESENT: no acute distress Head exam: PRESENT: normocephalic Eye exam: PRESENT: conjunctiva pink, scleral icterus Ear exam: PRESENT: normal external ear exam Mouth exam: PRESENT: moist, neck supple Neck exam: PRESENT: other - large hall. ABSENT: JVD, lymphadenopathy, meningismus Respiratory exam: PRESENT: unlabored. ABSENT: accessory muscle use Pulses: PRESENT: normal radial pulses GI/Abdominal exam: PRESENT: soft. ABSENT: guarding, tenderness Gentrourinary exam: ABSENT: ecchymosis Extremities exam: ABSENT: calf tenderness, clubbing Musculoskeletal exam: PRESENT: normal inspection Laboratory/Radiographs Laboratory Results: 02/17/20 06:24 02/19/20 03:50 02/19/20 02/19/20 02/19/20 03:50 03:50 08:50 Carbonic Acid 1.26 HCO3/H2CO3 Ratio 16:1 ABG pH 7.31 L ABG pCO2 41.7 ABG pO2 78.4 L ABG HCO3 20.7 ABG O2 Saturation 94.6 ABG Base Excess -5.3 FiO2 65% Sodium 141.6 Potassium 4.3 Chloride 108 H Carbon Dioxide 22 Anion Gap 12 BUN 87 H Creatinine 4.52 H Est GFR ( Amer) 16 L Glucose 281 H Calcium 6.7 L* Total Bilirubin 0.7 AST 148 H Alkaline Phosphatase 123 Total Protein 4.4 L Albumin 2.1 L Triglycerides 416 H 02/15/20 18:46 Tracheal Aspirate Gram Stain - Final 02/15/20 18:46 Tracheal Aspirate Sputum Culture - Final Mrsa (Meth Resis Staph Aureus) Normal Betsey Absent 02/08/20 02/08/20 09:49 13:11 Troponin I 0.160 0.155 NT-Pro-B Natriuret Pep 5540 H Impressions: Hip/Pelvis X-Ray 02/08/20 00:00 IMPRESSION: No acute fracture. Severe degenerative changes of the left hip. Knee X-Ray 02/08/20 00:00 IMPRESSION: NEGATIVE STUDY OF THE RIGHT KNEE. NO RADIOGRAPHIC EVIDENCE OF ACUTE INJURY. Head CT 02/08/20 10:19 IMPRESSION: MILD CHRONIC CHANGES OF ATROPHY AND MICROVASCULAR ISCHEMIA. NO ACUTE PROCESS. EVIDENCE OF ACUTE STROKE: NO. Chest X-Ray 02/17/20 05:00 IMPRESSION: STABLE PATCHY BIBASILAR OPACITIES AND SMALL BILATERAL EFFUSIONS, RIGHT GREATER THAN LEFT. ENDOTRACHEAL TUBE TIP OVERLIES LOWER THORACIC TRACHEA, 2.2 CM ABOVE THE GILES. ADDITIONAL LINES AND TUBES ABOVE. Assessment and Plan - Diagnosis (1) Acute kidney injury superimposed on chronic kidney disease Is this a current diagnosis for this admission?: Yes Plan: Historical baseline creatinine appears to be 1.6-1.8 Renal function continues to decline Continue to avoid nephrotoxins as able 02/16 His renal fn is getting worse. His last creatinine is 2.78. He has become progressively oliguric particualrly in the past 24 hours. His volume status shows a t least 113 kilos positive in the past 4 days. 02/18 The patient is getting dialyzed today. He does drop his Bp whichmakes fluid extraction difficult. I am going to give him some albumin in the next 2-3 days. as noted previously CRRT would be a more optimal mode of dialysis for this patient. Puts out hardly any urine at this point. (2) Acute on chronic combined systolic (congestive) and diastolic (congestive) heart failure Is this a current diagnosis for this admission?: Yes Plan: Patient continues to appear euvolemic clinically 24-hour fluid balance -580 Daily weights do not correlate with volume status. Today he is at his admission weight, initially he was down 2.3 kg and has gained weight daily in spite of having slight negative fluid balance At this time patient will not tolerate diuretic 2/2 hypotension Sacubitril/valsartan stopped 02/16 The patient has a long history of cardiac dysfn. His LVEF is said to be abouit 25-30%. His Pro BNP is quite elevated. 02/18 His cardiac status probably is contributing to the difficulties with dialysis. Asa noted this patient is at [facility] 12-13 lliters positive in the past 4 days and has a good deal of edema. (3) Acute respiratory failure due to COVID-19 Is this a current diagnosis for this admission?: Yes Plan: Remains vented. Unable to wean much. Will try small moves. FiO2 TO 80% RR to16. Prognosis at his age is not good. Given the multitude of issues this patient may not survive this illness 02/18 Clearly not ready for weaning a this point and unsure he will be able to be weaned. He remains on 65% FI02. Have not had to prone thepatient since 2 nights ago. (4) Atrial fibrillation Is this a current diagnosis for this admission?: Yes Plan: The patient is in a a dialtiazem drip atr 10 mg/hr. I started po Cardizem as well, in attempt to be able to wean off the drip. (5) COVID-19 virus infection Is this a current diagnosis for this admission?: Yes (6) Diabetes 1.5, managed as type 2 Is this a current diagnosis for this admission?: Yes Plan: The patient's blood sugares remaind rather elevated. he has been getting a l;arge dose of decaron that we will be decreasiung. If need be we will addd some Levimir of Lantus. 02/18 lantus added to regimen 10 units and he remains on sliding scale. Critical Time Critical Time (minutes): 35 Level of Care: ICU -: 1. The care of a critical patient is a dynamic process. This note is a industrial sales representative synopsis but static in nature. The timeframe for treatments given in order is not necessarily the actual time these treatments may have been done. 2. This patient requires critical care secondary to ongoing requirements for therapy not offered or safe outside the critical care environment. Transfer to a lower level of care will result in altered life or limb morbidity and mortality. 3. Multidisciplinary rounds completed. 4. ABCDE bundle addressed.
[2020-02-19] MEDS: CALCITRIOL 1 MCG/ML ORAL SOLN 15 ML NG SCH (11:20)
[2020-02-19 11:56] LABS: HEPATITIS C VIRUS ANTIBODY <0.1 s/co ratio (0.0-0.9)
[2020-02-19] MEDS ORDERED: INSULIN GLARGINE,HUM.REC.ANLOG 1,000 UNIT/10 ML VIAL SUBCUT SCH (12:00)
[2020-02-19] MEDS: FAMOTIDINE INJ/PF 20 MG/2 ML SDV IV SCH ×2 (12:51→22:45)
[2020-02-19] MEDS: ALBUMIN HUMAN 25 GM/100 ML RTUINJ IV SCH (22:44)
[2020-02-19] MEDS: ATORVASTATIN CALCIUM 40 MG TABLET NG SCH (22:45)
[2020-02-20] MEDS: INSULIN LISPRO 100 UNIT/ML 3 ML VIAL SUBCUT SCH ×6 (01:41→21:10)
[2020-02-20] MEDS: PROPOFOL 1,000 MG/100 ML INFUS..BTL IV PRN ×3 (05:24→23:35)
[2020-02-20] MEDS: PIPERACILLIN SODIUM/TAZOBACTAM 2.25 GM in NORMAL SALINE 50 ML IV SCH ×4 (05:24→21:18)
[2020-02-20] MEDS: DILTIAZEM HCL 60 MG TABLET NG SCH ×4 (05:28→23:35)
[2020-02-20] MEDS: LINEZOLID 600 MG/300 ML RTUPB IV SCH ×2 (05:29→17:44)
[2020-02-20] MEDS: HEPARIN SOD (PORCINE) 5,000 UNIT/ML 1 ML VIAL SUBCUT SCH ×3 (05:29→21:11)
[2020-02-20] MEDS: FUROSEMIDE INJ/PF 20 MG/2 ML SDV IV SCH ×4 (05:29→21:11)
[2020-02-20 05:38] LABS: ARTERIAL BLOOD BASE EXCESS -6.1 mmol/L; ARTERIAL BLOOD H2CO3 1.01 mmol/L (1.05-1.35); ARTERIAL BLOOD HCO3 18.5 mmol/L (20-24); ARTERIAL BLOOD O2 SATURATION 95.4 % (94-98); ARTERIAL BLOOD PCO2 33.4 mmHg (35-45); ARTERIAL BLOOD PH 7.36 (7.35-7.45); ARTERIAL BLOOD PO2 79.2 mmHg (80-100); ARTERIAL BLOOD TOTAL CO2 19.5 mmol/L (23-27)
[2020-02-20 05:53] LABS: ARTERIAL BLOOD FIO2 45%
[2020-02-20 06:05] LABS: HEMATOCRIT 32.5 % (37.9-51.0); HEMOGLOBIN 10.9 g/dL (13.5-17.0); MEAN CORPUSCULAR HEMOGLOBIN 30.4 pg (27.0-33.4); MEAN CORPUSCULAR HGB CONC 33.6 g/dL (32.0-36.0); MEAN CORPUSCULAR VOLUME 91 fl (80-97); PLATELET COUNT 125 10^3/uL (150-450); RED CELL DISTRIBUTION WIDTH 16.2 % (11.5-14.0); WHITE BLOOD COUNT 13.9 10^3/uL (4.0-10.5)
[2020-02-20 06:25] LABS: ALBUMIN 2.4 g/dL (3.5-5.0); ALKALINE PHOSPHATASE 113 U/L (38-126); ANION GAP 18 (5-19); ASPARTATE AMINO TRANSFERASE 218 U/L (17-59); BILIRUBIN,DIRECT 0.7 mg/dL (0.0-0.4); BILIRUBIN,TOTAL 0.7 mg/dL (0.2-1.3); BLOOD UREA NITROGEN 94 mg/dL (7-20); CARBON DIOXIDE 20 mmol/L (22-30); CHLORIDE 101 mmol/L (98-107); GLUCOSE 248 mg/dL (75-110); POTASSIUM 4.5 mmol/L (3.6-5.0)
[2020-02-20 06:30] LABS: TOTAL PROTEIN 4.9 g/dL (6.3-8.2)
[2020-02-20 06:31] LABS: CALCIUM 6.8 mg/dL (8.4-10.2)
[2020-02-20 06:35] LABS: ABSOLUTE MONOCYTES # (MANUAL) 0.4 10^3/uL (0.1-1.4); BAND NEUTROPHILS % (MANUAL) 1 % (3-5); BASOPHILS % (MANUAL) 0 % (0-2); EOSINOPHILS % (MANUAL) 0 % (0-6); LYMPHOCYTES % (MANUAL) 0 % (13-45); MONOCYTES % (MANUAL) 3 % (3-13); SEGMENTED NEUTROPHILS % (MAN) 96 % (42-78); TOTAL CELLS COUNTED 100
[2020-02-20 06:36] LABS: POLYCHROMASIA SLIGHT; TOXIC GRANULATION 1+
[2020-02-20 06:37] LABS: ANISOCYTOSIS 1+; OVALOCYTES SLIGHT; PLATELET COMMENT DECREASED; POIKILOCYTOSIS SLIGHT
--- NOTE | 2020-02-20 09:38 | PDOC CRITICAL CARE PROG REPORT ---
General Date:: 02/20/20 ICU Day:: 11 Ventilator Day:: 7 Resuscitation Status: Full Code Events in the past 12 to 24 Hours:: The patient remains sedated on the ventialtor He is requiring 100% FI02. zHis 02 sats are running about 89-90% The patient just had a vasc cath placed by surgery. The plan is to begin dialysis tomorrow. CXR shows right basilalr inflitrate The patient is up at least 13 kliters over thpast 4 days of fluid. 02/17 The patient was proned yesterday about 4PM. He remains proned at this time. I have decreased decadron to 6mg qd for the next few days. Blood sugars have been quite elevated. The patient had a dialysis catheter placed yesterday. He will begin dialysis today. heart rate remains reasonably controlled. Potassium better today at 4.1 The patient remains on FI02 of 65%a and PEEP of 10. 02/18 the patient remains on about 60% FI02. We did not prone him yesterday. I spoke to his and brought her up to seed. I told her he remains critically ill. Unclear when and if he will come off the ventilaltor. Dialysis has been inefficient for fluid removal given his hemodynamaics. CRRT would be better. We don't do it here and it would be difficult to transfer a COvid + patient at thei point in time.Blood sugars are elevated. I added lantus 10 units qd to regimen. 02/19 The patient is resting on the ventialtor. He remains heavily sedated. His CXR shows some clearing. he still has some density at the right base in particualr. His weight actually went down 02/18 to 02/19. Have had time extracting fluid during dialysiss given his "soft" hemodynamics. bood sugars remain elevated. we will addresss with an increasing dose of lantus. The patient has mild elevations of LFTs that may reflect some hyppoperfusion. Have been able to decrease his FI02 recently.He is down to an FI02 of about 45%. Reason for ICU Addmission:: Acute respiratory distress and need for intubation Physical Exam Vital Signs: Temp Pulse Resp BP Pulse Ox 98.6 F 107 H 24 H 118/63 96 02/19/20 16:00 02/20/20 07:59 02/20/20 07:59 02/20/20 07:59 02/20/20 07:59 Pulse Oximeter Nocturnal Start: 02/08/20 13:55 Freq: RTQ4 Status: Complete Protocol: Document 02/09/20 04:00 LRO (Rec: 02/09/20 05:38 LRO [email or web address]) Nocturnal Pulse Oximetry Equipment Usage Equipment in Use Oxygen Delivery Method (includes room Room Air air) O2 Sat by Pulse Oximetry (92-100) 95 Continuous SpO2 Machine # 2 Pulse Oximeter Nocturnal Start: 02/10/20 11:39 Freq: RTQ4 Status: Complete Protocol: Document 02/11/20 04:06 PMU (Rec: 02/11/20 05:06 PMU [email or web address]) Nocturnal Pulse Oximetry Equipment Usage Equipment in Use Oxygen Delivery Method (includes room Room Air air) O2 Sat by Pulse Oximetry (92-100) 93 Continuous SpO2 Machine # N2 Intake & Output 02/19/20 02/20/20 02/21/20 06:59 06:59 06:59 Intake Total 1790 3033 Output Total 865 2525 Balance 925 508 Weight 113 kg 111.4 kg Weight/Height Weight 111.4 kg Height 5 ft 9 in General appearance: PRESENT: no acute distress, morbidly obese Head exam: PRESENT: atraumatic Eye exam: PRESENT: conjunctiva pink Mouth exam: PRESENT: moist, neck supple Neck exam: ABSENT: JVD, lymphadenopathy, meningismus Respiratory exam: PRESENT: unlabored. ABSENT: accessory muscle use Cardiovascular exam: PRESENT: irregular rhythm Pulses: PRESENT: normal carotid pulses GI/Abdominal exam: PRESENT: soft. ABSENT: guarding, tenderness Rectal exam: PRESENT: deferred Gentrourinary exam: ABSENT: ecchymosis Extremities exam: ABSENT: calf tenderness, clubbing, joint swelling Neurological exam: ABSENT: alert, awake, oriented to time - Patient remains heavily sedated on the ventilator. Laboratory/Radiographs Laboratory Results: 02/20/20 05:00 02/20/20 05:00 02/20/20 02/20/20 02/20/20 05:00 05:00 05:00 WBC 13.9 H RBC 3.60 L Hgb 10.9 L Hct 32.5 L MCV 91 MCH 30.4 MCHC 33.6 RDW 16.2 H Plt Count 125 L Seg Neutrophils % Not Reportable Carbonic Acid 1.01 L HCO3/H2CO3 Ratio 18:1 ABG pH 7.36 ABG pCO2 33.4 L ABG pO2 79.2 L ABG HCO3 18.5 L ABG O2 Saturation 95.4 ABG Base Excess -6.1 FiO2 45% Sodium 138.7 Potassium 4.5 Chloride 101 Carbon Dioxide 20 L Anion Gap 18 BUN 94 H Creatinine 5.01 H Est GFR ( Amer) 14 L Glucose 248 H Calcium 6.8 L* Total Bilirubin 0.7 AST 218 H Alkaline Phosphatase 113 Total Protein 4.9 L Albumin 2.4 L 02/08/20 02/08/20 09:49 13:11 Troponin I 0.160 0.155 NT-Pro-B Natriuret Pep 5540 H Impressions: Hip/Pelvis X-Ray 02/08/20 00:00 IMPRESSION: No acute fracture. Severe degenerative changes of the left hip. Knee X-Ray 02/08/20 00:00 IMPRESSION: NEGATIVE STUDY OF THE RIGHT KNEE. NO RADIOGRAPHIC EVIDENCE OF ACUTE INJURY. Head CT 02/08/20 10:19 IMPRESSION: MILD CHRONIC CHANGES OF ATROPHY AND MICROVASCULAR ISCHEMIA. NO ACUTE PROCESS. EVIDENCE OF ACUTE STROKE: NO. Assessment and Plan - Diagnosis (1) Acute kidney injury superimposed on chronic kidney disease Is this a current diagnosis for this admission?: Yes Plan: Historical baseline creatinine appears to be 1.6-1.8 Renal function continues to decline Continue to avoid nephrotoxins as able 02/16 His renal fn is getting worse. His last creatinine is 2.78. He has become progressively oliguric particularly in the past 24 hours. His volume status shows a t least 113 kilos positive in the past 4 days. 02/18 The patient is getting dialyzed today. He does drop his Bp which makes fluid extraction difficult. I am going to give him some albumin in the next 2-3 days. as noted previously CRRT would be a more optimal mode of dialysis for this patient. Puts out hardly any urine at this point. 02/19 ZThe patient is putting out small [place]s [place] [address] cc to a l Weter. Creatinine is up to just over 5 We have had trouble extracting fluid with dialysis given his soft blood presss ures. has required supplemental Levophed at times. Getting dialysis tiw. (2) Acute on chronic combined systolic (congestive) and diastolic (congestive) heart failure Is this a current diagnosis for this admission?: Yes Plan: Patient continues to appear euvolemic clinically 24-hour fluid balance -580 Daily weights do not correlate with volume status. Today he is at his admission weight, initially he was down 2.3 kg and has gained weight daily in spite of having slight negative fluid balance At this time patient will not tolerate diuretic 2/2 hypotension Sacubitril/valsartan stopped 02/16 The patient has a long history of cardiac dysfn. His LVEF is said to be abouit 25-30%. His Pro BNP is quite elevated. 02/18 His cardiac status probably is contributing to the difficulties with dialysis. Asa noted this patient is at least 12-13 lliters positive in the past 4 days and has a good deal of edema. 02/19 The patient has a history of poor LV fn. as far as I can see while he is fluid overloaded his chest x ray does not sugg est CHF I will repeat Pro BNP. We stopped Entresto in setting of worse renal fn. (3) Acute respiratory failure due to COVID-19 Is this a current diagnosis for this admission?: Yes Plan: Remains vented. Unable to wean much. Will try small moves. FiO2 TO 80% RR to16. Prognosis at his age is not good. Given the multitude of issues this patient may not survive this illness 02/18 Clearly not ready for weaning a this point and unsure he will be able to be weaned. He remains on 65% FI02. Have not had to prone thepatient since 2 nights ago. 02/19 As hemodynmaics, CXR and FI02 improve we may be abke to consider weaning patient shortly. (4) Atrial fibrillation Is this a current diagnosis for this admission?: Yes Plan: The patient is in a a dialtiazem drip atr 10 mg/hr. I started po Cardizem as well, in attempt to be able to wean off the drip. (5) COVID-19 virus infection Is this a current diagnosis for this admission?: Yes (6) Diabetes 1.5, managed as type 2 Is this a current diagnosis for this admission?: Yes Plan: The patient's blood sugares remaind rather elevated. he has been getting a l;arge dose of decaron that we will be decreasiung. If need be we will addd some Levimir of Lantus. 02/18 lantus added to regimen 10 units and he remains on sliding scale. Plan Summary: Overall thepatient's prognosis remains guarded given his multisystem injuries and age. Critical Time Critical Time (minutes): 30 Level of Care: ICU -: 1. The care of a critical patient is a dynamic process. This note is a credit and collections representative synopsis but static in nature. The timeframe for treatments given in order is not necessarily the actual time these treatments may have been done. 2. This patient requires critical care secondary to ongoing requirements for therapy not offered or safe outside the critical care environment. Transfer to a lower level of care will result in altered life or limb morbidity and mortality. 3. Multidisciplinary rounds completed. 4. ABCDE bundle addressed.
--- NOTE | 2020-02-20 10:28 | RADIOLOGY REPORT (SQ) ---
EXAM DESCRIPTION: CHEST SINGLE VIEW IMAGES COMPLETED DATE/TIME: 02/20/2020 9:18 am REASON FOR STUDY: Pneumonia, Respiratory Failure COMPARISON: 02/17/2020 EXAM PARAMETERS: NUMBER OF VIEWS: One view. TECHNIQUE: Single frontal radiographic view of the chest acquired. RADIATION DOSE: NA LIMITATIONS: None. FINDINGS: LUNGS AND PLEURA: Basilar parenchymal opacities. Left lung slightly improved. MEDIASTINUM AND HILAR STRUCTURES: No masses. Contour normal. HEART AND VASCULAR STRUCTURES: Heart normal in size. Normal vasculature. BONES: No acute findings. HARDWARE: ETT, venous access catheter, NG tube unchanged. OTHER: No other significant finding. IMPRESSION: Slight improved aeration of the left base. TECHNICAL DOCUMENTATION: JOB ID: [id number] 2010 [employer]- All Rights Reserved Reading location - IP/workstation name: [email or web address]
[2020-02-20] MEDS: ALBUMIN HUMAN 25 GM/100 ML RTUINJ IV SCH ×2 (10:35→21:09)
[2020-02-20] MEDS: METOPROLOL TARTRATE PF/INJ 5 MG/5 ML SDV IV PRN ×3 (10:37→23:35)
[2020-02-20] MEDS: FAMOTIDINE INJ/PF 20 MG/2 ML SDV IV SCH ×2 (10:38→21:10)
[2020-02-20] MEDS: ASCORBIC ACID 500 MG TABLET NG SCH ×2 (10:38→17:47)
[2020-02-20] MEDS: ZINC SULFATE 220 MG CAPSULE NG SCH (10:39)
[2020-02-20] MEDS: CLOPIDOGREL BISULFATE 75 MG TABLET NG SCH (10:39)
[2020-02-20] MEDS: ASPIRIN 81 MG TABLET, CHEWABLE NG SCH (10:39)
[2020-02-20] MEDS: CHOLECALCIFEROL (D3) 1,000 UNIT (25 MCG) TABLET NG SCH (10:39)
[2020-02-20] MEDS: CALCITRIOL 1 MCG/ML ORAL SOLN 15 ML NG SCH (10:44)
[2020-02-20] MEDS: FLUTICASONE NASAL SPRAY 50 MCG/SPRY 120 SPRAY/16 GM NASL SCH ×2 (10:44→21:12)
[2020-02-20] MEDS ORDERED: INSULIN GLARGINE,HUM.REC.ANLOG 1,000 UNIT/10 ML VIAL SUBCUT SCH (11:00)
[2020-02-20] MEDS: ATORVASTATIN CALCIUM 40 MG TABLET NG SCH (21:10)
[2020-02-21] MEDS ORDERED: PANTOPRAZOLE SODIUM 40 MG VIAL IV ONE (00:30)
[2020-02-21] MEDS: INSULIN LISPRO 100 UNIT/ML 3 ML VIAL SUBCUT SCH ×6 (01:03→21:54)
[2020-02-21] MEDS ORDERED: HEPARIN SOD (PORCINE) 1,000 UNIT/ML 10 ML VIAL IV PRN (05:00)
[2020-02-21] MEDS: LINEZOLID 600 MG/300 ML RTUPB IV SCH ×2 (05:11→17:40)
[2020-02-21] MEDS: PIPERACILLIN SODIUM/TAZOBACTAM 2.25 GM in NORMAL SALINE 50 ML IV SCH ×3 (05:11→21:57)
[2020-02-21] MEDS: HEPARIN SOD (PORCINE) 5,000 UNIT/ML 1 ML VIAL SUBCUT SCH ×3 (05:11→21:55)
[2020-02-21] MEDS: DILTIAZEM HCL 60 MG TABLET NG SCH (05:12)
[2020-02-21] MEDS: FUROSEMIDE INJ/PF 20 MG/2 ML SDV IV SCH ×3 (05:12→21:57)
[2020-02-21 05:28] LABS: ARTERIAL BLOOD BASE EXCESS -8.8 mmol/L; ARTERIAL BLOOD H2CO3 1.22 mmol/L (1.05-1.35); ARTERIAL BLOOD HCO3 17.7 mmol/L (20-24); ARTERIAL BLOOD O2 SATURATION 94.6 % (94-98); ARTERIAL BLOOD PCO2 40.4 mmHg (35-45); ARTERIAL BLOOD PH 7.26 (7.35-7.45); ARTERIAL BLOOD PO2 82.6 mmHg (80-100); ARTERIAL BLOOD TOTAL CO2 18.9 mmol/L (23-27)
[2020-02-21 05:31] LABS: ARTERIAL BLOOD FIO2 40%; HEMATOCRIT 28.5 % (37.9-51.0); HEMOGLOBIN 9.5 g/dL (13.5-17.0); MEAN CORPUSCULAR HEMOGLOBIN 30.3 pg (27.0-33.4); MEAN CORPUSCULAR HGB CONC 33.2 g/dL (32.0-36.0); MEAN CORPUSCULAR VOLUME 91 fl (80-97); PLATELET COUNT 107 10^3/uL (150-450); RED BLOOD COUNT 3.13 10^6/uL (4.35-5.55); RED CELL DISTRIBUTION WIDTH 16.4 % (11.5-14.0); WHITE BLOOD COUNT 15.8 10^3/uL (4.0-10.5)
[2020-02-21 05:53] LABS: ALBUMIN 2.8 g/dL (3.5-5.0); ALKALINE PHOSPHATASE 94 U/L (38-126); ANION GAP 18 (5-19); ASPARTATE AMINO TRANSFERASE 174 U/L (17-59); BILIRUBIN,DIRECT 0.7 mg/dL (0.0-0.4); BILIRUBIN,TOTAL 0.7 mg/dL (0.2-1.3); CARBON DIOXIDE 20 mmol/L (22-30); CHLORIDE 98 mmol/L (98-107); GLUCOSE 211 mg/dL (75-110); PHOSPHORUS 10.6 mg/dL (2.5-4.5); POTASSIUM 4.9 mmol/L (3.6-5.0); TOTAL PROTEIN 5.5 g/dL (6.3-8.2)
[2020-02-21 05:59] LABS: ABSOLUTE LYMPHOCYTES# (MANUAL) 0.8 10^3/uL (0.5-4.7); ABSOLUTE MONOCYTES # (MANUAL) 0.5 10^3/uL (0.1-1.4); ANISOCYTOSIS 2+; BAND NEUTROPHILS % (MANUAL) 1 % (3-5); BASOPHILS % (MANUAL) 0 % (0-2); EOSINOPHILS % (MANUAL) 0 % (0-6); LYMPHOCYTES % (MANUAL) 5 % (13-45); MONOCYTES % (MANUAL) 3 % (3-13); PLATELET COMMENT ADEQUATE; POLYCHROMASIA 1+; SEGMENTED NEUTROPHILS % (MAN) 91 % (42-78); TOTAL CELLS COUNTED 100
[2020-02-21] MEDS: PROPOFOL 1,000 MG/100 ML INFUS..BTL IV PRN (06:01)
[2020-02-21 06:05] LABS: BLOOD UREA NITROGEN 134 mg/dL (7-20)
[2020-02-21 06:06] LABS: CALCIUM 6.6 mg/dL (8.4-10.2)
[2020-02-21] MEDS ORDERED: INSULIN GLARGINE,HUM.REC.ANLOG 1,000 UNIT/10 ML VIAL SUBCUT SCH (10:00)
--- NOTE | 2020-02-21 10:08 | PDOC PROGRESS REPORT ---
Subjective Progress Note for:: 02/21/20 Reason For Visit: Patient seen in the ICU today. He remains intubated and sedated. Patient undergoing dialysis. Vital signs are currently stable. Hardly much urine. Remains anasarcous. Labs and medications were reviewed. Dialysis orders were reviewed with the treating dialysis nurse. We will try to extract 2 to 4 L of fluid as tolerated. Physical Exam Vital Signs: Temp Pulse Resp BP Pulse Ox 96.8 F L 108 H 22 H 153/68 H 94 02/21/20 08:27 02/21/20 07:57 02/21/20 08:27 02/21/20 08:27 02/21/20 08:27 Pulse Oximeter Nocturnal Start: 02/08/20 13:55 Freq: RTQ4 Status: Complete Protocol: Document 02/09/20 04:00 LRO (Rec: 02/09/20 05:38 LRO [email or web address]) Nocturnal Pulse Oximetry Equipment Usage Equipment in Use Oxygen Delivery Method (includes room Room Air air) O2 Sat by Pulse Oximetry (92-100) 95 Continuous SpO2 Machine # 2 Pulse Oximeter Nocturnal Start: 02/10/20 11:39 Freq: RTQ4 Status: Complete Protocol: Document 02/11/20 04:06 PMU (Rec: 02/11/20 05:06 PMU [email or web address]) Nocturnal Pulse Oximetry Equipment Usage Equipment in Use Oxygen Delivery Method (includes room Room Air air) O2 Sat by Pulse Oximetry (92-100) 93 Continuous SpO2 Machine # N2 Intake & Output 02/20/20 02/21/20 02/22/20 06:59 06:59 06:59 Intake Total 3483 1692 Output Total 2525 920 0 Balance 958 772 0 Weight 111.4 kg 112.6 kg Exam: Remains intubated and sedated. Respiratory exam: PRESENT: clear to auscultation kevyn. ABSENT: crackles Cardiovascular exam: PRESENT: +S1, +S2 GI/Abdominal exam: PRESENT: normal bowel sounds, soft. ABSENT: organomegaly, tenderness Extremities exam: PRESENT: pedal edema Results Laboratory Results: 02/21/20 04:50 02/21/20 04:50 02/21/20 02/21/20 02/21/20 04:50 04:50 04:50 WBC 15.8 H RBC 3.13 L Hgb 9.5 L Hct 28.5 L MCV 91 MCH 30.3 MCHC 33.2 RDW 16.4 H Plt Count 107 L Seg Neutrophils % Not Reportable Carbonic Acid 1.22 HCO3/H2CO3 Ratio 14:1 ABG pH 7.26 L ABG pCO2 40.4 ABG pO2 82.6 ABG HCO3 17.7 L ABG O2 Saturation 94.6 ABG Base Excess -8.8 FiO2 40% Sodium 136.1 L Potassium 4.9 Chloride 98 Carbon Dioxide 20 L Anion Gap 18 BUN 134 H D Creatinine 5.76 H Est GFR ( Amer) 12 L Glucose 211 H Calcium 6.6 L* Phosphorus 10.6 H Magnesium 2.8 H Total Bilirubin 0.7 AST 174 H Alkaline Phosphatase 94 Total Protein 5.5 L Albumin 2.8 L 02/08/20 02/08/20 02/21/20 09:49 13:11 04:50 Troponin I 0.160 0.155 NT-Pro-B Natriuret Pep 5540 H 41463 H Impressions: Hip/Pelvis X-Ray 02/08/20 00:00 IMPRESSION: No acute fracture. Severe degenerative changes of the left hip. Knee X-Ray 02/08/20 00:00 IMPRESSION: NEGATIVE STUDY OF THE RIGHT KNEE. NO RADIOGRAPHIC EVIDENCE OF ACUTE INJURY. Head CT 02/08/20 10:19 IMPRESSION: MILD CHRONIC CHANGES OF ATROPHY AND MICROVASCULAR ISCHEMIA. NO ACUTE PROCESS. EVIDENCE OF ACUTE STROKE: NO. Chest X-Ray 02/20/20 00:00 IMPRESSION: Slight improved aeration of the left base. Assessment & Plan - Diagnosis (1) Acute kidney injury superimposed on chronic kidney disease Is this a current diagnosis for this admission?: Yes Plan: Acute on chronic kidney disease with patient having underlying baseline creatinine of around 1.7-2. Currently anuric. Patient has got anasarca with deteriorating renal numbers in the background of ischemic cardiomyopathy with low EF. Initiated hemodialysis through a temporary catheter. Dialysis is ongoing but extraction of fluid is getting more difficult as he is dropping his blood pressures in spite of pressors. Plan to remove 2-4 L of fluid as tolerated, given present hemodynamics. However will have to back off fluid extraction if blood pressure drops.Ideally the patient needs to be on CRRT which unfortunately we do not have in-house. Discussed and reviewed dialysis orders with the treating dialysis nurse.On review the patient has not had a renal imaging study and therefore I am going to order a renal ultrasound. (2) Acute on chronic combined systolic (congestive) and diastolic (congestive) heart failure Is this a current diagnosis for this admission?: Yes Plan: Showing early signs of decompensation. However some of the anasarca we see is because of third spacing given his very low albumin levels. (3) Acute respiratory failure due to COVID-19 Is this a current diagnosis for this admission?: Yes Plan: Remains intubated and sedated. He is also growing MRSA in his sputum culture. He is currently on linezolid for that. Being managed by investment associate. Monitor. (4) Hypotension Is this a current diagnosis for this admission?: Yes Plan: Currently stable. Monitor. (5) Hypocalcemia Plan: Improving. Recommend continuing [id number] IV calcium gluconate. Monitor. (6) Metabolic acidosis Plan: Unstable. See response to hemodialysis. Currently off bicarb drip. Monitor. (7) MARK (obstructive sleep apnea) Is this a current diagnosis for this admission?: Yes Plan: Status quo. (8) Atrial fibrillation Is this a current diagnosis for this admission?: Yes Plan: Currently rate controlled. Monitor. (9) Hyperglycemia Plan: As per investment associate. (10) COVID-19 virus infection Is this a current diagnosis for this admission?: Yes Plan: As per investment associate. (11) Anemia Plan: Monitor. Not going to put patient on erythopoietin given the thrombogenicity of covid status.
--- NOTE | 2020-02-21 11:41 | PDOC CRITICAL CARE PROG REPORT ---
General Date:: 02/21/20 ICU Day:: 12 Ventilator Day:: 8 Hospital Day:: 12 Resuscitation Status: Full Code Events in the past 12 to 24 Hours:: The patient remains sedated on the ventialtor He is requiring 100% FI02. zHis 02 sats are running about 89-90% The patient just had a vasc cath placed by surgery. The plan is to begin dialysis tomorrow. CXR shows right basilalr inflitrate The patient is up at least 13 kliters over thpast 4 days of fluid. 02/17 The patient was proned yesterday about 4PM. He remains proned at this time. I have decreased decadron to 6mg qd for the next few days. Blood sugars have been quite elevated. The patient had a dialysis catheter placed yesterday. He will begin dialysis today. heart rate remains reasonably controlled. Potassium better today at 4.1 The patient remains on FI02 of 65%a and PEEP of 10. 02/18 the patient remains on about 60% FI02. We did not prone him yesterday. I spoke to his and brought her up to seed. I told her he remains critically ill. Unclear when and if he will come off the ventilaltor. Dialysis has been inefficient for fluid removal given his hemodynamaics. CRRT would be better. We don't do it here and it would be difficult to transfer a COvid + patient at thei point in time.Blood sugars are elevated. I added lantus 10 units qd to regimen. 02/19 The patient is resting on the ventialtor. He remains heavily sedated. His CXR shows some clearing. he still has some density at the right base in particular. His weight actually went down 02/18 to 02/19. Have had time extracting fluid during dialysis given his "soft" hemodynamics. bood sugars remain elevated. we will addresss with an increasing dose of lantus. The patient has mild elevations of LFTs that may reflect some hypoperfusion. Have been able to decrease his FI02 recently.He is down to an FI02 of about 45%. 02/20 The patient remains on the ventilator. I placed him on CPAP with PS of about 12 and he appears to be tolerating it well. His dialysis was just completed. theyLFTs are down a tad. His blood sugars remain elevated. I increased the Lantus from 15 to 20 units. His bicarb is low so I did add some po Na HC03- They were able to get about 2 liters off with this latest dialysis. I called Mrs. Santamaria yesterday and related thel atest about his condition. Reason for ICU Addmission:: Acute respiratory distress and need for intubation Physical Exam Vital Signs: Temp Pulse Resp BP Pulse Ox 96.8 F L 115 H 25 H 110/65 95 02/21/20 08:27 02/21/20 10:00 02/21/20 10:00 02/21/20 10:00 02/21/20 10:00 Pulse Oximeter Nocturnal Start: 02/08/20 1 3:55 Freq: RTQ4 Status: Complete Protocol: Document 02/09/20 04:00 LRO (Rec: 02/09/20 05:38 LRO [email or web address]) Nocturnal Pulse Oximetry Equipment Usage Equipment in Use Oxygen Delivery Method (includes room Room Air air) O2 Sat by Pulse Oximetry (92-100) 95 Continuous SpO2 Machine # 2 Pulse Oximeter Nocturnal Start: 02/10/20 11:39 Freq: RTQ4 Status: Complete Protocol: Document 02/11/20 04:06 PMU (Rec: 02/11/20 05:06 PMU [email or web address]) Nocturnal Pulse Oximetry Equipment Usage Equipment in Use Oxygen Delivery Method (includes room Room Air air) O2 Sat by Pulse Oximetry (92-100) 93 Continuous SpO2 Machine # N2 Intake & Output 02/20/20 02/21/20 02/22/20 06:59 06:59 06:59 Intake Total 3483 1692 Output Total 2525 920 0 Balance 958 772 0 Weight 111.4 kg 112.6 kg Weight/Height Weight 112.6 kg Height 5 ft 9 in General appearance: PRESENT: no acute distress Head exam: PRESENT: atraumatic, normocephalic Eye exam: PRESENT: conjunctiva pink Ear exam: PRESENT: normal external ear exam Neck exam: ABSENT: JVD, lymphadenopathy, meningismus Respiratory exam: ABSENT: accessory muscle use GI/Abdominal exam: PRESENT: soft. ABSENT: tenderness Rectal exam: ABSENT: deferred Extremities exam: ABSENT: calf tenderness, clubbing Neurological exam: PRESENT: other - sedated on the ventialtor. Laboratory/Radiographs Laboratory Results: 02/21/20 04:50 02/21/20 04:50 02/21/20 02/21/20 02/21/20 04:50 04:50 04:50 WBC 15.8 H RBC 3.13 L Hgb 9.5 L Hct 28.5 L MCV 91 MCH 30.3 MCHC 33.2 RDW 16.4 H Plt Count 107 L Seg Neutrophils % Not Reportable Carbonic Acid 1.22 HCO3/H2CO3 Ratio 14:1 ABG pH 7.26 L ABG pCO2 40.4 ABG pO2 82.6 ABG HCO3 17.7 L ABG O2 Saturation 94.6 ABG Base Excess -8.8 FiO2 40% Sodium 136.1 L Potassium 4.9 Chloride 98 Carbon Dioxide 20 L Anion Gap 18 BUN 134 H D Creatinine 5.76 H Est GFR ( Amer) 12 L Glucose 211 H Calcium 6.6 L* Phosphorus 10.6 H Magnesium 2.8 H Total Bilirubin 0.7 AST 174 H Alkaline Phosphatase 94 Total Protein 5.5 L Albumin 2.8 L 02/08/20 02/08/20 02/21/20 09:49 13:11 04:50 Troponin I 0.160 0.155 NT-Pro-B Natriuret Pep 5540 H 49993 H Impressions: Hip/Pelvis X-Ray 02/08/20 00:00 IMPRESSION: No acute fracture. Severe degenerative changes of the left hip. Knee X-Ray 02/08/20 00:00 IMPRESSION: NEGATIVE STUDY OF THE RIGHT KNEE. NO RADIOGRAPHIC EVIDENCE OF ACUTE INJURY. Head CT 02/08/20 10:19 IMPRESSION: MILD CHRONIC CHANGES OF ATROPHY AND MICROVASCULAR ISCHEMIA. NO ACUTE PROCESS. EVIDENCE OF ACUTE STROKE: NO. Chest X-Ray 02/20/20 00:00 IMPRESSION: Slight improved aeration of the left base. Assessment and Plan - Diagnosis (1) Acute kidney injury superimposed on chronic kidney disease Is this a current diagnosis for this admission?: Yes Plan: Historical baseline creatinine appears to be 1.6-1.8 Renal function continues to decline Continue to avoid nephrotoxins as able 02/16 His renal fn is getting worse. His last creatinine is 2.78. He has become progressively oliguric particularly in the past 24 hours. His volume status shows a t least 113 kilos positive in the past 4 days. 02/18 The patient is getting dialyzed today. He does drop his Bp which makes fluid extraction difficult. I am going to give him some albumin in the next 2-3 days. as noted previously CRRT would be a more optimal mode of dialysis for this patient. Puts out hardly any urine at this point. 02/19 ZThe patient is putting out small [place]mounts [place], [place] [address] cc to a l Weter. Creatinine is up to just over 5 We have had trouble extracting fluid with dialysis given his soft blood presssures. has required supplemental Levophed at times. Getting dialysis tiw. 02/20 The ppatient does not put out much urine so he is dialysis dependent he juist got dialyszed today and 2 liters removed. (2) Acute on chronic combined systolic (congestive) and diastolic (congestive) heart failure Is this a current diagnosis for this admission?: Yes Plan: Patient continues to appear euvolemic clinically 24-hour fluid balance -580 Daily weights do not correlate with volume status. Today he is at his admission weight, initially he was down 2.3 kg and has gained weight daily in spite of having slight negative fluid balance At this time patient will not tolerate diuretic 2/2 hypotension Sacubitril/valsartan stopped 02/16 The patient has a long history of cardiac dysfn. His LVEF is said to be abouit 25-30%. His Pro BNP is quite elevated. 02/18 His cardiac status probably is contributing to the difficulties with dialysis. Asa noted this patient is at least 12-13 lliters positive in the past 4 days and has a good deal of edema. 02/19 The patient has a history of poor LV fn. as far as I can see while he is fluid overloaded his chest x ray does not suggest CHF I will repeat Pro BNP. We stopped Entresto in setting of worse renal fn. 02/20 While thepatient is volume overloaded much of the dfkluid is in the subcut tissues. i do not bleieve there is strng element of CHF presently. (3) Acute respiratory failure due to COVID-19 Is this a current diagnosis for this admission?: Yes Plan: Remains vented. Unable to wean much. Will try small moves. FiO2 TO 80% RR to16. Prognosis at his age is not good. Given the multitude of issues this patient may not survive this illness 02/18 Clearly not ready for weaning a this point and unsure he will be able to be weaned. He remains on 65% FI02. Have not had to prone the CXR shows resdiual RLL density patient since 2 nights ago. 02/19 As hemodynmaics, CXR and FI02 improve we may be abke to consider weaning patient shortly. 02/20 We are going to repeAt noted he has started a weaning trial and seems to be doing reasonably well at this point (after 1/2 hour)at the Covid test on him. The CXR shows a residual RLL density. (4) Atrial fibrillation Qualifiers: Atrial fibrillation type: persistent (not longstanding) Qualified Code(s): I48.19 - Other persistent atrial fibrillation; I48.1 - Persistent atrial fibrillation Is this a current diagnosis for this admission?: Yes Plan: The patient is in a a dialtiazem drip atr 10 mg/hr. I started po Cardizem as well, in attempt to be able to wean off the drip. 02/20 his heart rate has been controlled for the most part. Heart rate presently is 100-120. I have increased from 60to 90 mg q6h. (5) COVID-19 virus infection Is this a current diagnosis for this admission?: Yes (6) Diabetes 1.5, managed as type 2 Is this a current diagnosis for this admission?: Yes Plan: The patient's blood sugares remain rather elevated. he has been getting a l;arge dose of decaron that we will be decreasiung. If need be we will addd some Levimir of Lantus. 02/18 lantus added to regimen 10 units and he remains on sliding scale. 02/20 lantus increased from 15 to 20 units as the blood sugar remains elevated. (7) Pneumonia Qualifiers: Pneumonia type: due to unspecified organism Is this a current diagnosis for this admission?: Yes Plan: The patiet has been on Zyvoxx and Zosyn. I am goingto stop the abx after 1 week. (8) Hypocalcemia Is this a current diagnosis for this admission?: Yes Plan: I will give thepatient some supplemental Ca++> Critical Time Critical Time (minutes): 40 Level of Care: ICU -: 1. The care of a critical patient is a dynamic process. This note is a medical center representative synopsis but static in nature. The timeframe for treatments given in order is not necessarily the actual time these treatments may have been done. 2. This patient requires critical care secondary to ongoing requirements for therapy not offered or safe outside the critical care environment. Transfer to a lower level of care will result in altered life or limb morbidity and mortality. 3. Multidisciplinary rounds completed. 4. ABCDE bundle addressed.
[2020-02-21] MEDS: ALBUMIN HUMAN 25 GM/100 ML RTUINJ IV SCH ×2 (11:48→21:53)
[2020-02-21] MEDS: ASPIRIN 81 MG TABLET, CHEWABLE NG SCH (11:51)
[2020-02-21] MEDS: CLOPIDOGREL BISULFATE 75 MG TABLET NG SCH (11:51)
[2020-02-21] MEDS: ZINC SULFATE 220 MG CAPSULE NG SCH (11:51)
[2020-02-21] MEDS: CHOLECALCIFEROL (D3) 1,000 UNIT (25 MCG) TABLET NG SCH (11:51)
[2020-02-21] MEDS: SODIUM BICARBONATE 650 MG TABLET NG SCH ×2 (11:51→21:54)
[2020-02-21] MEDS: ASCORBIC ACID 500 MG TABLET NG SCH ×2 (11:51→17:42)
[2020-02-21] MEDS: PANTOPRAZOLE SODIUM 40 MG VIAL IV SCH ×2 (11:52→21:58)
[2020-02-21] MEDS: CALCITRIOL 1 MCG/ML ORAL SOLN 15 ML NG SCH (11:52)
[2020-02-21] MEDS: FLUTICASONE NASAL SPRAY 50 MCG/SPRY 120 SPRAY/16 GM NASL SCH ×2 (11:53→21:55)
[2020-02-21] MEDS: AMINO AC/PROTEIN HYDR/WHEY PRO 11 GM/45 ML PKT NG SCH ×3 (11:58→17:42)
[2020-02-21] MEDS: CALCIUM GLUC IN NACL, ISO-OSM 1 GM/50 ML RTUPB IV SCH (11:59)
[2020-02-21] MEDS: DILTIAZEM HCL 90 MG TABLET PO SCH ×2 (12:09→17:51)
--- NOTE | 2020-02-21 15:40 | RADIOLOGY REPORT (SQ) ---
EXAM DESCRIPTION: U/S RETROPERITON (RENAL/AORTA) IMAGES COMPLETED DATE/TIME: 02/21/2020 1:00 pm REASON FOR STUDY: PRERNA COMPARISON: None. TECHNIQUE: Dynamic and static grayscale images acquired of the kidneys and bladder and recorded on P ACS. Additional selected color Doppler and spectral images recorded. LIMITATIONS: None. FINDINGS: RIGHT KIDNEY: The right kidney measures 10.2 cm in length. The echogenicity of the renal parenchyma is increased. The corticomedullary differentiation is preserved. There is no hydronephro sis. LEFT KIDNEY: The left kidney measures 10.5 cm in length. The echogenicity of the renal parenchyma i s increased. The corticomedullary differentiation is preserved. There is no hydronephrosis. BLADDER: There is a Ryan catheter within the urinary bladder. OTHER FINDINGS: No other finding. IMPRESSION: Increased echogenicity of the renal parenchyma suggestive of underlying chronic medical renal disease. There is no hydronephrosis. There is a Ryan catheter within the urinary bladder. TECHNICAL DOCUMENTATION: JOB ID: [id number] 2010 [employer]- All Rights Reserved Reading location - IP/workstation name: [email or web address]
[2020-02-21] MEDS: SACUBITRIL/VALSARTAN 49 MG/51 MG TABLET NG SCH (21:54)
[2020-02-21] MEDS: ATORVASTATIN CALCIUM 40 MG TABLET NG SCH (21:57)
[2020-02-21] MEDS: DEXMEDETOMIDINE IN 0.9 % NACL 400 MCG/100 ML RTUPB IV PRN (22:23)
[2020-02-22] MEDS: DILTIAZEM HCL 90 MG TABLET PO SCH ×4 (00:10→18:13)
[2020-02-22] MEDS: INSULIN LISPRO 100 UNIT/ML 3 ML VIAL SUBCUT SCH ×6 (01:41→21:38)
[2020-02-22] MEDS: PIPERACILLIN SODIUM/TAZOBACTAM 2.25 GM in NORMAL SALINE 50 ML IV SCH ×3 (05:04→21:37)
[2020-02-22] MEDS: HEPARIN SOD (PORCINE) 5,000 UNIT/ML 1 ML VIAL SUBCUT SCH (05:05)
[2020-02-22] MEDS: FUROSEMIDE INJ/PF 20 MG/2 ML SDV IV SCH (05:05)
[2020-02-22] MEDS: DEXMEDETOMIDINE IN 0.9 % NACL 400 MCG/100 ML RTUPB IV PRN ×2 (05:09→13:19)
[2020-02-22] MEDS: LINEZOLID 600 MG/300 ML RTUPB IV SCH ×2 (05:54→18:11)
[2020-02-22 06:35] LABS: ARTERIAL BLOOD BASE EXCESS -6.8 mmol/L; ARTERIAL BLOOD FIO2 40%; ARTERIAL BLOOD H2CO3 1.01 mmol/L (1.05-1.35); ARTERIAL BLOOD HCO3 18.1 mmol/L (20-24); ARTERIAL BLOOD O2 SATURATION 90.1 % (94-98); ARTERIAL BLOOD PCO2 33.7 mmHg (35-45); ARTERIAL BLOOD PH 7.35 (7.35-7.45); ARTERIAL BLOOD PO2 59.9 mmHg (80-100); ARTERIAL BLOOD TOTAL CO2 19.2 mmol/L (23-27)
[2020-02-22 07:13] LABS: HEMATOCRIT 22.4 % (37.9-51.0); MEAN CORPUSCULAR HEMOGLOBIN 30.8 pg (27.0-33.4); MEAN CORPUSCULAR HGB CONC 34.4 g/dL (32.0-36.0); MEAN CORPUSCULAR VOLUME 89 fl (80-97); RED CELL DISTRIBUTION WIDTH 15.7 % (11.5-14.0); WHITE BLOOD COUNT 8.9 10^3/uL (4.0-10.5)
[2020-02-22 07:14] LABS: ALBUMIN 2.6 g/dL (3.5-5.0); ALKALINE PHOSPHATASE 82 U/L (38-126); ANION GAP 19 (5-19); ASPARTATE AMINO TRANSFERASE 150 U/L (17-59); BILIRUBIN,DIRECT 0.7 mg/dL (0.0-0.4); BILIRUBIN,TOTAL 0.7 mg/dL (0.2-1.3); CARBON DIOXIDE 18 mmol/L (22-30); CHLORIDE 100 mmol/L (98-107); GLUCOSE 161 mg/dL (75-110); POTASSIUM 4.2 mmol/L (3.6-5.0); TOTAL PROTEIN 4.7 g/dL (6.3-8.2); TRIGLYCERIDES 185 mg/dL (<150)
[2020-02-22 07:26] LABS: BLOOD UREA NITROGEN 126 mg/dL (7-20)
[2020-02-22 07:28] LABS: CALCIUM 6.1 mg/dL (8.4-10.2)
[2020-02-22 08:10] LABS: HEMOGLOBIN 7.7 g/dL (13.5-17.0); PLATELET COUNT 88 10^3/uL (150-450)
[2020-02-22 08:13] LABS: ABSOLUTE LYMPHOCYTES# (MANUAL) 0.2 10^3/uL (0.5-4.7); ABSOLUTE MONOCYTES # (MANUAL) 0.1 10^3/uL (0.1-1.4); BASOPHILS % (MANUAL) 0 % (0-2); EOSINOPHILS % (MANUAL) 0 % (0-6); LYMPHOCYTES % (MANUAL) 2 % (13-45); MONOCYTES % (MANUAL) 1 % (3-13); NUCLEATED RED BLOOD CELLS 1 /100 WBC (0); SEGMENTED NEUTROPHILS % (MAN) 97 % (42-78); TOTAL CELLS COUNTED 100
[2020-02-22 08:17] LABS: ANISOCYTOSIS SLIGHT
[2020-02-22 08:18] LABS: OVALOCYTES SLIGHT; PLATELET COMMENT DECREASED
[2020-02-22 08:29] LABS: ARTERIAL BLOOD BASE EXCESS -7.3 mmol/L; ARTERIAL BLOOD H2CO3 1.01 mmol/L (1.05-1.35); ARTERIAL BLOOD HCO3 17.8 mmol/L (20-24); ARTERIAL BLOOD O2 SATURATION 89.2 % (94-98); ARTERIAL BLOOD PCO2 33.6 mmHg (35-45); ARTERIAL BLOOD PH 7.34 (7.35-7.45); ARTERIAL BLOOD PO2 58.5 mmHg (80-100); ARTERIAL BLOOD TOTAL CO2 18.8 mmol/L (23-27)
[2020-02-22 08:30] LABS: ARTERIAL BLOOD FIO2 45%
--- NOTE | 2020-02-22 09:06 | PDOC CRITICAL CARE PROG REPORT ---
General Date:: 02/22/20 ICU Day:: 13 Ventilator Day:: 9 Hospital Day:: 13 Resuscitation Status: Full Code Events in the past 12 to 24 Hours:: The patient remains sedated on the ventialtor He is requiring 100% FI02. zHis 02 sats are running about 89-90% The patient just had a vasc cath placed by surgery. The plan is to begin dialysis tomorrow. CXR shows right basilalr inflitrate The patient is up at least 13 kliters over thpast 4 days of fluid. 02/17 The patient was proned yesterday about 4PM. He remains proned at this time. I have decreased decadron to 6mg qd for the next few days. Blood sugars have been quite elevated. The patient had a dialysis catheter placed yesterday. He will begin dialysis today. heart rate remains reasonably controlled. Potassium better today at 4.1 The patient remains on FI02 of 65%a and PEEP of 10. 02/18 the patient remains on about 60% FI02. We did not prone him yesterday. I spoke to his and brought her up to seed. I told her he remains critically ill. Unclear when and if he will come off the ventilaltor. Dialysis has been inefficient for fluid removal given his hemodynamaics. CRRT would be better. We don't do it here and it would be difficult to transfer a COvid + patient at thei point in time.Blood sugars are elevated. I added lantus 10 units qd to regimen. 02/19 The patient is resting on the ventialtor. He remains heavily sedated. His CXR shows some clearing. he still has some density at the right base in particular. His weight actually went down 02/18 to 02/19. Have had time extracting fluid during dialysis given his "soft" hemodynamics. bood sugars remain elevated. we will addresss with an increasing dose of lantus. The patient has mild elevations of LFTs that may reflect some hypoperfusion. Have been able to decrease his FI02 recently.He is down to an FI02 of about 45%. 02/20 The patient remains on the ventilator. I placed him on CPAP with PS of about 12 and he appears to be tolerating it well. His dialysis was just completed. theyLFTs are down a tad. His blood sugars remain elevated. I increased the Lantus from 15 to 20 units. His bicarb is low so I did add some po Na HC03- They were able to get about 2 liters off with this latest dialysis. I called Mrs. Santamaria yesterday and related thel latest about his condition. 02/21 thepatient is on the ventialator.his Hb has dropped clsoe to 2 points. Will check stool ob. He may need GI to see him Will repeat Hb later today. i have put subcut heparin and plavix on hold. Recent US showed bilaterla medical-renalo disease of hsi kidneys. The patient did several hours on SBT yesterday. i am hoping to wena him perhaps as soon as today. Reason for ICU Addmission:: Acute respiratory distress and need for intubation Physical Exam Vital Signs: Temp Pulse Resp BP Pulse Ox 98.1 F 82 23 H 105/51 L 95 02/22/20 08:00 02/22/20 08:00 02/22/20 08:00 02/22/20 08:00 02/22/20 08:00 Pulse Oximeter Nocturnal Start: 02/08/20 13:55 Freq: RTQ4 Status: Complete Protocol: Document 02/09/20 04:00 LRO (Rec: 02/09/20 05:38 LRO [email or web address]) Nocturnal Pulse Oximetry Equipment Usage Equipment in Use Oxygen Delivery Method (includes room Room Air air) O2 Sat by Pulse Oximetry (92-100) 95 Continuous SpO2 Machine # 2 Pulse Oximeter Nocturnal Start: 02/10/20 11:39 Freq: RTQ4 Status: Complete Protocol: Document 02/11/20 04:06 PMU (Rec: 02/11/20 05:06 PMU [email or web address]) Nocturnal Pulse Oximetry Equipment Usage Equipment in Use Oxygen Delivery Method (includes room Room Air air) O2 Sat by Pulse Oximetry (92-100) 93 Continuous SpO2 Machine # N2 Intake & Output 02/21/20 02/22/20 02/23/20 06:59 06:59 06:59 Intake Total 2142 1870 Output Total 955 3645 Balance 1222 -1725 Weight 112.6 kg 112.2 kg Weight/Height Weight 112.2 kg Height 5 ft 9 in General appearance: PRESENT: no acute distress, morbidly obese Head exam: PRESENT: atraumatic, normocephalic Eye exam: PRESENT: conjunctiva pink Mouth exam: PRESENT: moist, neck supple, tongue midline Neck exam: ABSENT: lymphadenopathy, tenderness, thyromegaly Respiratory exam: PRESENT: unlabored Cardiovascular exam: PRESENT: irregular rhythm, +S1, +S2 Pulses: PRESENT: normal femoral pulses, normal dorsalis pedis pul GI/Abdominal exam: PRESENT: normal bowel sounds, soft. ABSENT: tenderness Rectal exam: PRESENT: deferred Gentrourinary exam: PRESENT: ecchymosis, erythema Extremities exam: ABSENT: calf tenderness, clubbing, joint swelling Neurological exam: PRESENT: other - OnPrecedex which I hope to wean down today. Not responsive of moving presently Laboratory/Radiographs Laboratory Results: 02/22/20 06:30 02/22/20 06:30 02/22/20 02/22/20 02/22/20 05:15 06:30 06:30 WBC 8.9 RBC 2.50 L Hgb 7.7 L Hct 22.4 L MCV 89 MCH 30.8 MCHC 34.4 RDW 15.7 H Plt Count 88 L Seg Neutrophils % Not Reportable Carbonic Acid 1.01 L HCO3/H2CO3 Ratio 17:1 ABG pH 7.35 ABG pCO2 33.7 L ABG pO2 59.9 L ABG HCO3 18.1 L ABG O2 Saturation 90.1 L ABG Base Excess -6.8 FiO2 40% Sodium 136.5 L Potassium 4.2 Chloride 100 Carbon Dioxide 18 L Anion Gap 19 BUN 126 H Creatinine 4.90 H Est GFR ( Amer) 14 L Glucose 161 H Calcium 6.1 L* Total Bilirubin 0.7 AST 150 H Alkaline Phosphatase 82 Total Protein 4.7 L Albumin 2.6 L Triglycerides 185 H 02/22/20 08:22 WBC RBC Hgb Hct MCV MCH MCHC RDW Plt Count Seg Neutrophils % Carbonic Acid 1.01 L HCO3/H2CO3 Ratio 17:1 ABG pH 7.34 L ABG pCO2 33.6 L ABG pO2 58.5 L ABG HCO3 17.8 L ABG O2 Saturation 89.2 L ABG Base Excess -7.3 FiO2 45% Sodium Potassium Chloride Carbon Dioxide Anion Gap BUN Creatinine Est GFR ( Amer) Glucose Calcium Total Bilirubin AST Alkaline Phosphatase Total Protein Albumin Triglycerides 02/08/20 02/08/20 02/21/20 09:49 13:11 04:50 Troponin I 0.160 0.155 NT-Pro-B Natriuret Pep 5540 H 60428 H Impressions: Hip/Pelvis X-Ray 02/08/20 00:00 IMPRESSION: No acute fracture. Severe degenerative changes of the left hip. Knee X-Ray 02/08/20 00:00 IMPRESSION: NEGATIVE STUDY OF THE RIGHT KNEE. NO RADIOGRAPHIC EVIDENCE OF ACUTE INJURY. Head CT 02/08/20 10:19 IMPRESSION: MILD CHRONIC CHANGES OF ATROPHY AND MICROVASCULAR ISCHEMIA. NO ACUTE PROCESS. EVIDENCE OF ACUTE STROKE: NO. Chest X-Ray 02/20/20 00:00 IMPRESSION: Slight improved aeration of the left base. Renal Ultrasound 02/21/20 00:00 IMPRESSION: Increased echogenicity of the renal parenchyma suggestive of underlying chronic medical renal disease. There is no hydronephrosis. There is a Ryan catheter within the urinary bladder. Assessment and Plan - Diagnosis (1) Acute kidney injury superimposed on chronic kidney disease Is this a current diagnosis for this admission?: Yes Plan: Historical baseline creatinine appears to be 1.6-1.8 Renal function continues to decline Continue to avoid nephrotoxins as able 02/16 His renal fn is getting worse. His last creatinine is 2.78. He has become progressively oliguric particularly in the past 24 hours. His volume status shows a t least 113 kilos positive in the past 4 days. 02/18 The patient is getting dialyzed today. He does drop his Bp which makes fluid extraction difficult. I am going to give him some albumin in the next 2-3 days. as noted previously CRRT would be a more optimal mode of dialysis for this patient. Puts out hardly any urine at this point. 02/19 ZThe patient is putting out small [place]s [place], [place] [address] cc to a l Weter. Creatinine is up to just over 5 We have had trouble extracting fluid with dialysis given his soft blood presssures. has required supplemental Levophed at times. Getting dialysis tiw. 02/20 The ppatient does not put out much urine so he is dialysis dependent he juist got dialyszed today and 2 liters removed. 02/21 The dialysis appears to be of limited efficacy. The BUN did come down however from 134 to 88. His bicarb remains low. I will increase thepo bicarb. (2) Acute on chronic combined systolic (congestive) and diastolic (congestive) heart failure Is this a current diagnosis for this admission?: Yes Plan: Patient continues to appear euvolemic clinically 24-hour fluid balance -580 Daily weights do not correlate with volume status. Today he is at his admission weight, initially he was down 2.3 kg and has gained weight daily in spite of having slight negative fluid balance At this time patient will not tolerate diuretic 2/2 hypotension Sacubitril/valsartan stopped 02/16 The patient has a long history of cardiac dysfn. His LVEF is said to be abouit 25-30%. His Pro BNP is quite elevated. 02/18 His cardiac status probably is contributing to the difficulties with dialysis. Asa noted this patient is at least 12-13 lliters positive in the past 4 days and has a good deal of edema. 02/19 The patient has a history of poor LV fn. as far as I can see while he is fluid overloaded his chest x ray does not suggest CHF I will repeat Pro BNP. We stopped Entresto in setting of worse renal fn. 02/20 While the patient is volume overloaded much of the dfkluid is in the subcut tissues. I do not bleieve there is strng element of CHF presently. 02/21 His BNP came back rather elevated at 16,700 (had been 5540 on 02/07). Owen hopeful we can extract more fluid on future dialyses as he remains oliguric. He remains > 10 liters positive. (3) Acute respiratory failure due to COVID-19 Is this a current diagnosis for this admission?: Yes Plan: Remains vented. Unable to wean much. Will try small moves. FiO2 TO 80% RR to16. Prognosis at his age is not good. Given the multitude of issues this patient may not survive this illness 02/18 Clearly not ready for weaning a this point and unsure he will be able to be weaned. He remains on 65% FI02. Have not had to prone the CXR shows resdiual RLL density patient since 2 nights ago. 02/19 As hemodynmaics, CXR and FI02 improve we may be abke to consider weaning patient shortly. 02/20 We are going to repeAt noted he has started a weaning trial and seems to be doing reasonably well at this point (after 1/2 hour)at the Covid test on him. The CXR shows a residual RLL density. (4) Atrial fibrillation Qualifiers: Atrial fibrillation type: persistent (not longstanding) Qualified Code(s): I48.19 - Other persistent atrial fibrillation; I48.1 - Persistent atrial f ibrillation Is this a current diagnosis for this admission?: Yes Plan: The patient is in a a dialtiazem drip atr 10 mg/hr. I started po Cardizem as well, in attempt to be able to wean off the drip. 02/20 his heart rate has been controlled for the most part. Heart rate presently is 100-120. I have increased from 60to 90 mg q6h. 02/21 His heart rate is better controlled today withheart rate in the 80s to 90s. (5) COVID-19 virus infection Is this a current diagnosis for this admission?: Yes (6) Diabetes 1.5, managed as type 2 Is this a current diagnosis for this admission?: Yes (7) Pneumonia Qualifiers: Pneumonia type: due to unspecified organism Is this a current diagnosis for this admission?: Yes (8) Hypocalcemia Is this a current diagnosis for this admission?: Yes (9) Anemia Qualifiers: Anemia type: unspecified type Qualified Code(s): D64.9 - Anemia, unspecified Is this a current diagnosis for this admission?: Yes Plan: 02/21 His Hb has dropped fairly significantly over thepast severa days. I am going to ask gi to see him. he likely needs an UGI endoscopy. His Hb was 12.9 and is now down to 7.7. I will recheck it later today and if lower I will transfuse him. (10) Thrombocytopenia Is this a current diagnosis for this admission?: Yes Plan: The patient's platelet count has dropped over thepast 6 days. He started in 115-147 range and it is now down to 88K. I don't see any obvious culprit med other than sq heparin. It has been placed on hold pending PF4 evalautation. Critical Time Critical Time (minutes): 50 Level of Care: ICU -: 1. The care of a critical patient is a dynamic process. This note is a safety representative synopsis but static in nature. The timeframe for treatments given in order is not necessarily the actual time these treatments may have been done. 2. This patient requires critical care secondary to ongoing requirements for therapy not offered or safe outside the critical care environment. Transfer to a lower level of care will result in altered life or limb morbidity and mortality. 3. Multidisciplinary rounds completed. 4. ABCDE bundle addressed.
[2020-02-22] MEDS: ALBUMIN HUMAN 25 GM/100 ML RTUINJ IV SCH (11:02)
[2020-02-22] MEDS: CALCIUM GLUC IN NACL, ISO-OSM 1 GM/50 ML RTUPB IV SCH (11:04)
[2020-02-22] MEDS: INSULIN GLARGINE,HUM.REC.ANLOG 1,000 UNIT/10 ML VIAL SUBCUT SCH (11:06)
[2020-02-22] MEDS: ZINC SULFATE 220 MG CAPSULE NG SCH (11:07)
[2020-02-22] MEDS: CHOLECALCIFEROL (D3) 1,000 UNIT (25 MCG) TABLET NG SCH (11:07)
[2020-02-22] MEDS: ASCORBIC ACID 500 MG TABLET NG SCH ×2 (11:07→18:10)
[2020-02-22] MEDS: SODIUM BICARBONATE 650 MG TABLET PO SCH ×2 (11:07→21:36)
[2020-02-22] MEDS: PANTOPRAZOLE SODIUM 40 MG VIAL IV SCH ×2 (11:07→21:37)
[2020-02-22] MEDS: ASPIRIN 81 MG TABLET, CHEWABLE NG SCH (11:07)
[2020-02-22] MEDS: CALCITRIOL 1 MCG/ML ORAL SOLN 15 ML NG SCH (11:08)
[2020-02-22] MEDS: AMINO AC/PROTEIN HYDR/WHEY PRO 11 GM/45 ML PKT NG SCH ×3 (11:12→18:10)
[2020-02-22] MEDS: FLUTICASONE NASAL SPRAY 50 MCG/SPRY 120 SPRAY/16 GM NASL SCH ×2 (11:12→21:36)
[2020-02-22 15:30] LABS: HEMATOCRIT 20.7 % (37.9-51.0); MEAN CORPUSCULAR HEMOGLOBIN 31.2 pg (27.0-33.4); MEAN CORPUSCULAR VOLUME 89 fl (80-97); RED BLOOD COUNT 2.32 10^6/uL (4.35-5.55); RED CELL DISTRIBUTION WIDTH 15.2 % (11.5-14.0); WHITE BLOOD COUNT 10.6 10^3/uL (4.0-10.5)
[2020-02-22 15:58] LABS: PLATELET COUNT 99 10^3/uL (150-450)
[2020-02-22 16:23] LABS: HEMOGLOBIN 7.2 g/dL (13.5-17.0)
[2020-02-22] MEDS: ATORVASTATIN CALCIUM 40 MG TABLET NG SCH (21:38)
[2020-02-23] MEDS: DILTIAZEM HCL 90 MG TABLET PO SCH ×4 (00:29→17:31)
[2020-02-23] MEDS: PIPERACILLIN SODIUM/TAZOBACTAM 2.25 GM in NORMAL SALINE 50 ML IV SCH ×3 (05:44→21:34)
[2020-02-23] MEDS: INSULIN LISPRO 100 UNIT/ML 3 ML VIAL SUBCUT SCH ×4 (05:45→17:31)
[2020-02-23] MEDS: LINEZOLID 600 MG/300 ML RTUPB IV SCH (05:46)
[2020-02-23] MEDS: DEXMEDETOMIDINE IN 0.9 % NACL 400 MCG/100 ML RTUPB IV PRN ×3 (05:48→22:57)
[2020-02-23 07:08] LABS: HEMATOCRIT 19.6 % (37.9-51.0); MEAN CORPUSCULAR HEMOGLOBIN 30.6 pg (27.0-33.4); MEAN CORPUSCULAR HGB CONC 33.4 g/dL (32.0-36.0); MEAN CORPUSCULAR VOLUME 92 fl (80-97); PLATELET COUNT 100 10^3/uL (150-450); RED BLOOD COUNT 2.14 10^6/uL (4.35-5.55); RED CELL DISTRIBUTION WIDTH 15.8 % (11.5-14.0); WHITE BLOOD COUNT 11.8 10^3/uL (4.0-10.5)
[2020-02-23 07:55] LABS: ALBUMIN 2.6 g/dL (3.5-5.0); ALKALINE PHOSPHATASE 88 U/L (38-126); ASPARTATE AMINO TRANSFERASE 138 U/L (17-59); BILIRUBIN,DIRECT 0.7 mg/dL (0.0-0.4); BILIRUBIN,TOTAL 0.7 mg/dL (0.2-1.3); GLUCOSE 200 mg/dL (75-110); POTASSIUM 4.6 mmol/L (3.6-5.0); TOTAL PROTEIN 4.7 g/dL (6.3-8.2)
[2020-02-23 07:56] LABS: CARBON DIOXIDE 17 mmol/L (22-30); CHLORIDE 99 mmol/L (98-107)
[2020-02-23 08:33] LABS: ANION GAP 20 (5-19)
[2020-02-23 08:34] LABS: CALCIUM 6.2 mg/dL (8.4-10.2)
[2020-02-23 08:41] LABS: BLOOD UREA NITROGEN 157 mg/dL (7-20)
[2020-02-23 09:03] LABS: HEMOGLOBIN 6.6 g/dL (13.5-17.0)
[2020-02-23 09:05] LABS: ABSOLUTE LYMPHOCYTES# (MANUAL) 0.2 10^3/uL (0.5-4.7); ABSOLUTE MONOCYTES # (MANUAL) 0.2 10^3/uL (0.1-1.4); BASOPHILS % (MANUAL) 0 % (0-2); EOSINOPHILS % (MANUAL) 0 % (0-6); LYMPHOCYTES % (MANUAL) 2 % (13-45); MONOCYTES % (MANUAL) 2 % (3-13); SEGMENTED NEUTROPHILS % (MAN) 96 % (42-78); TOTAL CELLS COUNTED 100
[2020-02-23 09:08] LABS: ANISOCYTOSIS SLIGHT; PLATELET COMMENT DECREASED
[2020-02-23] MEDS ORDERED: NORMAL SALINE 250 ML IV PRN ×2 (09:21)
--- NOTE | 2020-02-23 09:48 | PDOC CRITICAL CARE PROG REPORT ---
General Date:: 02/23/20 ICU Day:: 14 Ventilator Day:: 10 Resuscitation Status: Full Code Events in the past 12 to 24 Hours:: The patient remains sedated on the ventialtor He is requiring 100% FI02. zHis 02 sats are running about 89-90% The patient just had a vasc cath placed by surgery. The plan is to begin dialysis tomorrow. CXR shows right basilalr inflitrate The patient is up at least 13 kliters over thpast 4 days of fluid. 02/17 The patient was proned yesterday about 4PM. He remains proned at this time. I have decreased decadron to 6mg qd for the next few days. Blood sugars have been quite elevated. The patient had a dialysis catheter placed yesterday. He will begin dialysis today. heart rate remains reasonably controlled. Potassium better today at 4.1 The patient remains on FI02 of 65%a and PEEP of 10. 02/18 the patient remains on about 60% FI02. We did not prone him yesterday. I spoke to his and brought her up to seed. I told her he remains critically ill. Unclear when and if he will come off the ventilaltor. Dialysis has been inefficient for fluid removal given his hemodynamaics. CRRT would be better. We don't do it here and it would be difficult to transfer a COvid + patient at thei point in time.Blood sugars are elevated. I added lantus 10 units qd to regimen. 02/19 The patient is resting on the ventialtor. He remains heavily sedated. His CXR shows some clearing. he still has some density at the right base in particular. His weight actually went down 02/18 to 02/19. Have had time extracting fluid during dialysis given his "soft" hemodynamics. bood sugars remain elevated. we will addresss with an increasing dose of lantus. The patient has mild elevations of LFTs that may reflect some hypoperfusion. Have been able to decrease his FI02 recently.He is down to an FI02 of about 45%. 02/20 The patient remains on the ventilator. I placed him on CPAP with PS of about 12 and he appears to be tolerating it well. His dialysis was just completed. theyLFTs are down a tad. His blood sugars remain elevated. I increased the Lantus from 15 to 20 units. His bicarb is low so I did add some po Na HC03- They were able to get about 2 liters off with this latest dialysis. I called Mrs. Santamaria yesterday and related thel latest about his condition. 02/21 the patient is on the ventialator.His Hb has dropped close to 2 points. Will check stool ob. He may need GI to see him Will repeat Hb later today. I have put subcut heparin and plavix on hold. Recent US showed bilaterla medical-renalo disease of hsi kidneys. The patient did several hours on SBT yesterday. i am hoping to wena him perhaps as soon as today. 02/22 The patienthas been dropping his Hb. it was 11.8 on 02/16 and is now 6.6. It has been decreasing daily. His stool is guaic positive. I suspect he may have an UGI bleed. i have stoped heparin and Plavix. I have asked GI to see the patient . he will be getting 2 units PRBCs today. The patient has never really woken up despite being offf sedationfor protracted periods during the day. I have ordered an EEG on patient. He appears to do well on his SBTs over the past few days. Despite his dialysis his BUN is up to 157 which could be affecting his mental status. Reason for ICU Addmission:: Acute respiratory distress and need for intubation Physical Exam Vital Signs: Temp Pulse Resp BP Pulse Ox 95.7 F L 64 22 H 125/45 L 96 02/23/20 08:45 02/23/20 09:13 02/23/20 08:00 02/23/20 08:00 02/23/20 08:38 Pulse Oximeter Nocturnal Start: 02/08/20 13:55 Freq: RTQ4 Status: Complete Protocol: Document 02/09/20 04:00 LRO (Rec: 02/09/20 05:38 LRO [email or web address]) Nocturnal Pulse Oximetry Equipment Usage Equipment in Use Oxygen Delivery Method (includes room Room Air air) O2 Sat by Pulse Oximetry (92-100) 95 Continuous SpO2 Machine # 2 Pulse Oximeter Nocturnal Start: 02/10/20 11:39 Freq: RTQ4 Status: Complete Protocol: Document 02/11/20 04:06 PMU (Rec: 02/11/20 05:06 PMU [email or web address]) Nocturnal Pulse Oximetry Equipment Usage Equipment in Use Oxygen Delivery Method (includes room Room Air air) O2 Sat by Pulse Oximetry (92-100) 93 Continuous SpO2 Machine # N2 Intake & Output 02/22/20 02/23/20 02/24/20 06:59 06:59 06:59 Intake Total 2170 1795 Output Total 3595 590 Balance -1425 1205 Weight 112.2 kg 113.2 kg Weight/Height Weight 113.2 kg Height 5 ft 9 in General appearance: PRESENT: no acute distress, morbidly obese Head exam: PRESENT: atraumatic, normocephalic Eye exam: PRESENT: conjunctiva pink Mouth exam: PRESENT: neck supple Neck exam: ABSENT: JVD, lymphadenopathy, tenderness Respiratory exam: ABSENT: accessory muscle use Cardiovascular exam: PRESENT: irregular rhythm, +S1, +S2 Pulses: PRESENT: normal carotid pulses, normal femoral pulses GI/Abdominal exam: PRESENT: diminished bowel sounds, soft. ABSENT: tenderness Rectal exam: PRESENT: deferred Gentrourinary exam: ABSENT: ecchymosis - Patient remains quite sedated and non- responsive aeven after prolonged periods off of sedation Extremities exam: PRESENT: other - Patient has fairly extensive anasarca involvingg, limbs and sacrum. ABSENT: calf tenderness Neurological exam: PRESENT: other Laboratory/Radiographs Laboratory Results: 02/23/20 05:45 02/23/20 05:45 02/22/20 02/22/20 02/23/20 10:55 14:55 05:45 WBC 10.6 H 11.8 H RBC 2.32 L 2.14 L Hgb 7.2 L 6.6 L Hct 20.7 L 19.6 L MCV 89 92 MCH 31.2 30.6 MCHC 35.0 33.4 RDW 15.2 H 15.8 H Plt Count 99 L 100 L Seg Neutrophils % Not Reportable Sodium Potassium Chloride Carbon Dioxide Anion Gap BUN Creatinine Est GFR ( Amer) Glucose Calcium Total Bilirubin AST Alkaline Phosphatase Total Protein Albumin Stool Occult Blood POSITIVE 02/23/20 05:45 WBC RBC Hgb Hct MCV MCH MCHC RDW Plt Count Seg Neutrophils % Sodium 135.7 L Potassium 4.6 Chloride 99 Carbon Dioxide 17 L Anion Gap 20 H BUN 157 H D Creatinine 6.07 H Est GFR ( Amer) 11 L Glucose 200 H Calcium 6.2 L* Total Bilirubin 0.7 AST 138 H Alkaline Phosphatase 88 Total Protein 4.7 L Albumin 2.6 L Stool Occult Blood 02/08/20 02/08/20 02/21/20 09:49 13:11 04:50 Troponin I 0.160 0.155 NT-Pro-B Natriuret Pep 5540 H 46029 H Impressions: Hip/Pelvis X-Ray 02/08/20 00:00 IMPRESSION: No acute fracture. Severe degenerative changes of the left hip. Knee X-Ray 02/08/20 00:00 IMPRESSION: NEGATIVE STUDY OF THE RIGHT KNEE. NO RADIOGRAPHIC EVIDENCE OF ACUTE INJURY. Head CT 02/08/20 10:19 IMPRESSION: MILD CHRONIC CHANGES OF ATROPHY AND MICROVASCULAR ISCHEMIA. NO ACUTE PROCESS. EVIDENCE OF ACUTE STROKE: NO. Chest X-Ray 02/20/20 00:00 IMPRESSION: Slight improved aeration of the left base. Renal Ultrasound 02/21/20 00:00 IMPRESSION: Increased echogenicity of the renal parenchyma suggestive of underlying chronic medical renal disease. There is no hydronephrosis. There is a Ryan catheter within the urinary bladder. Assessment and Plan - Diagnosis (1) Acute kidney injury superimposed on chronic kidney disease Is this a current diagnosis for this admission?: Yes Plan: Historical baseline creatinine appears to be 1.6-1.8 Renal function continues to decline Continue to avoid nephrotoxins as able 02/16 His renal fn is getting worse. His last creatinine is 2.78. He has become progressively oliguric particularly in the past 24 hours. His volume status shows a t least 113 kilos positive in the past 4 days. 02/18 The patient is getting dialyzed today. He does drop his Bp which makes fluid extraction difficult. I am going to give him some albumin in the next 2-3 days. as noted previously CRRT would be a more optimal mode of dialysis for this patient. Puts out hardly any urine at this point. 02/19 ZThe patient is putting out small anmounts urine, [place] [address] cc to a l Weter. Creatinine is up to just over 5 We have had trouble extracting fluid with dialysis given his soft blood presssures. has required supplemental Levophed at times. Getting dialysis tiw. 02/20 The ppatient does not put out much urine so he is dialysis dependent he juist got dialyszed today and 2 liters removed. 02/21 The dialysis appears to be of limited efficacy. The BUN did come down however from 134 to 88. His bicarb remains low. I will increase thepo bicarb. 02/22 the patient is getting dialyzed tiw. However, his BUN remains quite high. Have not been too successful removing fluid. (2) Acute on chronic combined systolic (congestive) and diastolic (congestive) heart failure Is this a current diagnosis for this admission?: Yes Plan: Patient continues to appear euvolemic clinically 24-hour fluid balance -580 Daily weights do not correlate with volume status. Today he is at his admission weight, initially he was down 2.3 kg and has gained weight daily in spite of having slight negative fluid balance At this time patient will not tolerate diuretic 07/28 hypotension Sacubitril/valsartan stopped 02/16 The patient has a long history of cardiac dysfn. His LVEF is said to be abouit 25-30%. His Pro BNP is quite elevated. 02/18 His cardiac status probably is contributing to the difficulties with dialysis. Asa noted this patient is at least 12-13 lliters positive in the past 4 days and has a good deal of edema. 02/19 The patient has a history of poor LV fn. as far as I can see while he is fluid overloaded his chest x ray does not suggest CHF I will repeat Pro BNP. We stopped Entresto in setting of worse renal fn. 02/20 While the patient is volume overloaded much of the dfkluid is in the subcut tissues. I do not bleieve there is strng element of CHF presently. 02/21 His BNP came back rather elevated at 16,700 (had been 5540 on 02/07). Owen hopeful we can extract more fluid on future dialyses as he remains oliguric. He remains > 10 liters positive. (3) Acute respiratory failure due to COVID-19 Is this a current diagnosis for this admission?: Yes Plan: Remains vented. Unable to wean much. Will try small moves. FiO2 TO 80% RR to16. Prognosis at his age is not good. Given the multitude of issues this patient may not survive this illness 02/18 Clearly not ready for weaning a this point and unsure he will be able to be weaned. He remains on 65% FI02. Have not had to prone the CXR shows resdiual RLL density patient since 2 nights ago. 02/19 As hemodynmaics, CXR and FI02 improve we may be abke to consider weaning patient shortly. 02/20 We are going to repeAt noted he has started a weaning trial and seems to be doing reasonably well at this point (after 1/2 hour)at the Covid test on him. The CXR shows a residual RLL density. 02/21 his ne wCovid test came back persistently positive as of 02/19. Until when and if his menta status improves we can proceed with extubation. Now that he appears to be bleeding we cannot pursue that aggressively. (4) Atrial fibrillation Qualifiers: Atrial fibrillation type: persistent (not longstanding) Qualified Code(s): I48.19 - Other persistent atrial fibrillation; I48.1 - Persistent atrial fibri llation Is this a current diagnosis for this admission?: Yes Plan: The patient is in a a dialtiazem drip atr 10 mg/hr. I started po Cardizem as well, in attempt to be able to wean off the drip. 02/20 his heart rate has been controlled for the most part. Heart rate presently is 100-120. I have increased from 60to 90 mg q6h. 02/21 His heart rate is better controlled today with heart rate in the 80s to 90s. 02/22 Patient in atrial fib with Heart rate about 100-110 (5) COVID-19 virus infection Is this a current diagnosis for this admission?: Yes (6) Diabetes 1.5, managed as type 2 Is this a current diagnosis for this admission?: Yes Plan: The patient's blood sugares remain rather elevated. he has been getting a l;arge dose of decaron that we will be decreasiung. If need be we will addd some Levimir of Lantus. 02/18 lantus added to regimen 10 units and he remains on sliding scale. 02/20 lantus increased from 15 to 20 units as the blood sugar remains elevated. (7) Pneumonia Qualifiers: Pneumonia type: due to unspecified organism Is this a current diagnosis for this admission?: Yes Plan: The patient has been on Zyvoxx and Zosyn. I am going to stop the abx after 1 week. 02/22 Repeat CXR pending . will be stopping Zopsyn and Zyvoxx in the next 24 hours (8) Hypocalcemia Is this a current diagnosis for this admission?: Yes (9) Anemia Qualifiers: Anemia type: iron deficiency Is this a current diagnosis for this admission?: Yes Plan: 02/21 His Hb has dropped fairly significantly over thepast severa days. I am going to ask gi to see him. he likely needs an UGI endoscopy. His Hb was 12.9 and is now down to 7.7. I will recheck it later today and if lower I will transfuse him. 02/22 The patient has klpst a fair amount of blood in thepast several days. his Hb has trickled from 11.8 to 6.6. he is getting transfused 2 units. I ahve request gi eval. I don't bellieve they will be in today. I started procrit on patient as well. (10) Thrombocytopenia Is this a current diagnosis for this admission?: Yes Critical Time Critical Time (minutes): 35 Level of Care: ICU -: 1. The care of a critical patient is a dynamic process. This note is a represe ntative synopsis but static in nature. The timeframe for treatments given in order is not necessarily the actual time these treatments may have been done. 2. This patient requires critical care secondary to ongoing requirements for therapy not offered or safe outside the critical care environment. Transfer to a lower level of care will result in altered life or limb morbidity and mortality. 3. Multidisciplinary rounds completed. 4. ABCDE bundle addressed.
[2020-02-23] MEDS: CALCIUM GLUC IN NACL, ISO-OSM 1 GM/50 ML RTUPB IV SCH (10:23)
[2020-02-23] MEDS: AMINO AC/PROTEIN HYDR/WHEY PRO 11 GM/45 ML PKT NG SCH ×3 (10:23→17:31)
[2020-02-23] MEDS: INSULIN GLARGINE,HUM.REC.ANLOG 1,000 UNIT/10 ML VIAL SUBCUT SCH (10:24)
[2020-02-23] MEDS: FLUTICASONE NASAL SPRAY 50 MCG/SPRY 120 SPRAY/16 GM NASL SCH ×2 (10:24→21:33)
[2020-02-23] MEDS: ZINC SULFATE 220 MG CAPSULE NG SCH (10:25)
[2020-02-23] MEDS: SODIUM BICARBONATE 650 MG TABLET PO SCH ×2 (10:25→21:33)
[2020-02-23] MEDS: PANTOPRAZOLE SODIUM 40 MG VIAL IV SCH ×2 (10:25→21:34)
[2020-02-23] MEDS: ASCORBIC ACID 500 MG TABLET NG SCH ×2 (10:26→17:31)
[2020-02-23] MEDS: CALCITRIOL 1 MCG/ML ORAL SOLN 15 ML NG SCH (10:26)
[2020-02-23] MEDS: ASPIRIN 81 MG TABLET, CHEWABLE NG SCH (10:27)
--- NOTE | 2020-02-23 12:13 | RADIOLOGY REPORT (SQ) ---
EXAM DESCRIPTION: CHEST SINGLE VIEW IMAGES COMPLETED DATE/TIME: 02/23/2020 10:08 am REASON FOR STUDY: resp. failure COMPARISON: Chest films 02/08/2020, 02/13/2020, 02/17/2020, 02/20/2020 EXAM PARAMETERS: NUMBER OF VIEWS: One view. TECHNIQUE: Single frontal radiographic view of the chest acquired. RADIATION DOSE: NA LIMITATIONS: None. FINDINGS: LUNGS AND PLEURA: Persistent alveolar and interstitial infiltrates in the periphery of bot h lower lungs, stable compared to the previous exams. No gross pleural effusion or pneumothorax. MEDIASTINUM AND HILAR STRUCTURES: No masses. Contour normal. HEART AND VASCULAR STRUCTURES: Heart normal in size. Normal vasculature. BONES: No acute findings. HARDWARE: Endotracheal tube tip 5 cm above the kera. Nasogastric tube tip and side port below the hemidiaphragms. Right jugular central line tip superior vena cava. OTHER: No other significant finding. IMPRESSION: No change from 02/20/2020 TECHNICAL DOCUMENTATION: JOB ID: [id number] 2010 [employer]- All Rights Reserved Reading location - IP/workstation name: [id number]
[2020-02-23] MEDS: CHOLECALCIFEROL (D3) 1,000 UNIT (25 MCG) TABLET NG SCH (12:34)
[2020-02-23] MEDS: ATORVASTATIN CALCIUM 40 MG TABLET NG SCH (21:33)
[2020-02-23 23:18] LABS: HEMATOCRIT 23.8 % (37.9-51.0); MEAN CORPUSCULAR HGB CONC 33.7 g/dL (32.0-36.0); MEAN CORPUSCULAR VOLUME 89 fl (80-97); RED BLOOD COUNT 2.68 10^6/uL (4.35-5.55); WHITE BLOOD COUNT 10.2 10^3/uL (4.0-10.5)
[2020-02-23 23:42] LABS: PLATELET COUNT 85 10^3/uL (150-450)
[2020-02-24] MEDS: DILTIAZEM HCL 90 MG TABLET PO SCH ×5 (00:34→23:50)
[2020-02-24] MEDS: INSULIN LISPRO 100 UNIT/ML 3 ML VIAL SUBCUT SCH ×5 (00:34→23:45)
[2020-02-24] MEDS ORDERED: EPOETIN ALFA-EPBX 20,000 UNIT in SYRINGE, DISPOSABLE, 1 EACH IV PRN (05:00)
[2020-02-24] MEDS ORDERED: HEPARIN SOD (PORCINE) 1,000 UNIT/ML 10 ML VIAL IV PRN (05:00)
[2020-02-24] MEDS: PIPERACILLIN SODIUM/TAZOBACTAM 2.25 GM in NORMAL SALINE 50 ML IV SCH (05:57)
[2020-02-24 07:24] LABS: HEMOGLOBIN 8.5 g/dL (13.5-17.0); MEAN CORPUSCULAR VOLUME 88 fl (80-97); RED BLOOD COUNT 2.83 10^6/uL (4.35-5.55); RED CELL DISTRIBUTION WIDTH 16.7 % (11.5-14.0); WHITE BLOOD COUNT 13.7 10^3/uL (4.0-10.5)
[2020-02-24] MEDS: DEXMEDETOMIDINE IN 0.9 % NACL 400 MCG/100 ML RTUPB IV PRN ×2 (07:50→17:44)
[2020-02-24 07:54] LABS: CARBON DIOXIDE 14 mmol/L (22-30); GLUCOSE 135 mg/dL (75-110); POTASSIUM 5.1 mmol/L (3.6-5.0)
[2020-02-24 07:55] LABS: PLATELET COUNT 95 10^3/uL (150-450)
[2020-02-24 07:59] LABS: ANION GAP 19 (5-19); CHLORIDE 102 mmol/L (98-107)
[2020-02-24 08:01] LABS: ABSOLUTE LYMPHOCYTES# (MANUAL) 0.7 10^3/uL (0.5-4.7); ABSOLUTE MONOCYTES # (MANUAL) 0.4 10^3/uL (0.1-1.4); BASOPHILS % (MANUAL) 0 % (0-2); EOSINOPHILS % (MANUAL) 0 % (0-6); LYMPHOCYTES % (MANUAL) 5 % (13-45); MONOCYTES % (MANUAL) 3 % (3-13); SEGMENTED NEUTROPHILS % (MAN) 92 % (42-78); TOTAL CELLS COUNTED 100
[2020-02-24 08:02] LABS: BLOOD UREA NITROGEN 184 mg/dL (7-20)
[2020-02-24 08:04] LABS: CALCIUM 6.3 mg/dL (8.4-10.2)
[2020-02-24 08:06] LABS: ANISOCYTOSIS 1+; PLATELET COMMENT DECREASED
[2020-02-24 08:10] LABS: POIKILOCYTOSIS 1+
[2020-02-24 08:12] LABS: BURR CELLS 1+; OVALOCYTES SLIGHT
--- NOTE | 2020-02-24 09:30 | PDOC CRITICAL CARE PROG REPORT ---
General Date:: 02/24/20 ICU Day:: 12 Ventilator Day:: 12 Hospital Day:: 16 Resuscitation Status: Full Code Events in the past 12 to 24 Hours:: Getting dialysed now. FiO2 45% Review of systems relevant to events:: Renal, pulmonary, neurological Reason for ICU Addmission:: Acute respiratory distress and need for intubation - Medications: Medications reviewed and adjusted accordingly: Yes Vasopressors:: Levophed Sedation:: Precedex Physical Exam Vital Signs: Temp Pulse Resp BP Pulse Ox 97.5 F 74 20 125/61 98 02/24/20 08:44 02/24/20 07:50 02/24/20 08:44 02/24/20 08:44 02/24/20 08:44 Pulse Oximeter Nocturnal Start: 02/08/20 13:55 Freq: RTQ4 Status: Complete Protocol: Document 02/09/20 04:00 LRO (Rec: 02/09/20 05:38 LRO [id number]) Nocturnal Pulse Oximetry Equipment Usage Equipment in Use Oxygen Delivery Method (includes room Room Air air) O2 Sat by Pulse Oximetry (92-100) 95 Continuous SpO2 Machine # 2 Pulse Oximeter Nocturnal Start: 02/10/20 11:39 Freq: RTQ4 Status: Complete Protocol: Document 02/11/20 04:06 PMU (Rec: 02/11/20 05:06 PMU [email or web address]) Nocturnal Pulse Oximetry Equipment Usage Equipment in Use Oxygen Delivery Method (includes room Room Air air) O2 Sat by Pulse Oximetry (92-100) 93 Continuous SpO2 Machine # N2 Intake & Output 02/23/20 02/24/20 02/25/20 06:59 06:59 06:59 Intake Total 1795 1530 Output Total 590 1030 100 Balance 1205 500 -100 Weight 113.2 kg 113.2 kg Weight/Height Weight 113.2 kg Height 5 ft 9 in General appearance: PRESENT: no acute distress, obese Head exam: PRESENT: atraumatic, normocephalic Eye exam: PRESENT: conjunctiva pink, PERRLA. ABSENT: scleral icterus Ear exam: PRESENT: normal external ear exam Mouth exam: PRESENT: moist, tongue midline Respiratory exam: PRESENT: rhonchi, symmetrical, unlabored Cardiovascular exam: PRESENT: RRR. ABSENT: diastolic murmur, rubs, systolic murmur GI/Abdominal exam: PRESENT: normal bowel sounds, soft. ABSENT: distended, guarding, mass, organolmegaly, rebound, tenderness Rectal exam: PRESENT: deferred Gentrourinary exam: PRESENT: indwelling catheter Extremities exam: PRESENT: full ROM, +1 edema. ABSENT: calf tenderness, clubbing, pedal edema Musculoskeletal exam: PRESENT: normal inspection Neurological exam: PRESENT: altered Skin exam: PRESENT: dry, intact, warm. ABSENT: cyanosis, rash Tubes/Lines: PRESENT: Endotracheal Tube, Central Line, Dialysis catheter, Nasogastic Tube Laboratory/Radiographs Laboratory Results: 02/24/20 07:00 02/24/20 07:00 02/23/20 02/23/20 02/24/20 10:05 21:30 07:00 WBC 10.2 RBC 2.68 L Hgb 8.0 L Hct 23.8 L MCV 89 MCH 30.0 MCHC 33.7 RDW 17.0 H Plt Count 85 L Seg Neutrophils % Sodium 135.4 L Potassium 5.1 H Chloride 102 Carbon Dioxide 14 L Anion Gap 19 BUN 184 H Creatinine 7.19 H Est GFR ( Amer) 9 L Glucose 135 H Calcium 6.3 L* Blood Type O POSITIVE Antibody Screen NEGATIVE 02/24/20 07:00 WBC 13.7 H RBC 2.83 L Hgb 8.5 L Hct 25.0 L MCV 88 MCH 30.0 MCHC 34.0 RDW 16.7 H Plt Count 95 L Seg Neutrophils % Not Reportable Sodium Potassium Chloride Carbon Dioxide Anion Gap BUN Creatinine Est GFR ( Amer) Glucose Calcium Blood Type Antibody Screen 02/21/20 09:00 Tracheal Aspirate Gram Stain - Final 02/21/20 09:00 Tracheal Aspirate Sputum Culture - Final Mrsa (Meth Resis Staph Aureus) Yeast, Not Jerri Albicans Normal Betsey Absent 02/08/20 02/08/20 02/21/20 09:49 13:11 04:50 Troponin I 0.160 0.155 NT-Pro-B Natriuret Pep 5540 H 04360 H Impressions: Hip/Pelvis X-Ray 02/08/20 00:00 IMPRESSION: No acute fracture. Severe degenerative changes of the left hip. Knee X-Ray 02/08/20 00:00 IMPRESSION: NEGATIVE STUDY OF THE RIGHT KNEE. NO RADIOGRAPHIC EVIDENCE OF ACUTE INJURY. Head CT 02/08/20 10:19 IMPRESSION: MILD CHRONIC CHANGES OF ATROPHY AND MICROVASCULAR ISCHEMIA. NO ACUTE PROCESS. EVIDENCE OF ACUTE STROKE: NO. Renal Ultrasound 02/21/20 00:00 IMPRESSION: Increased echogenicity of the renal parenchyma suggestive of underlying chronic medical renal disease. There is no hydronephrosis. There is a Ryan catheter within the urinary bladder. Chest X-Ray 02/23/20 00:00 IMPRESSION: No change from 02/20/2020 All labs, radiographs, diagnostic studies and EKGs were personally reviewed: Yes In addition, reports of radiographic and diagnostic studies were read: Yes Assessment and Plan - Diagnosis (1) Acute respiratory failure due to COVID-19 Is this a current diagnosis for this admission?: Yes Plan: Given his age, he is in a catagory that is high for mortality. Able to wean vent some. (2) Tachypnea Is this a current diagnosis for this admission?: Yes Plan: His rate is now 20/minute. (3) Acute on chronic diastolic CHF (congestive heart failure) Is this a current diagnosis for this admission?: Yes Plan: Stable (4) Coronary artery disease Qualifiers: Coronary Disease-Associated Artery/Lesion type: unspecified vessel or lesion type [place] vs. transplanted heart: [place] heart Associated angina: with unspecified angina Qualified Code(s): I25.119 - Atherosclerotic heart disease of [place] coronary artery with unspecified angina pectoris Is this a current diagnosis for this admission?: Yes Plan: Inactive. (5) Elevated brain natriuretic peptide (BNP) level Is this a current diagnosis for this admission?: Yes Plan: This is up significantly. Will follow trend. Hx CHF and COVID makes the absolute number of questionable meaning. (6) MARK (obstructive sleep apnea) Is this a current diagnosis for this admission?: Yes Plan: Not an issue intubated. (7) Obesity (BMI 30-39.9) Is this a current diagnosis for this admission?: Yes Plan: Chronic (8) Stage III chronic kidney disease Is this a current diagnosis for this admission?: Yes Plan: He is now stage 5. On hd. His BUN of 157 is undoubtably effecting his mental status. Perhaps it will be improved with HD. Plan Summary: Plan HD today than try to wean ventilator. He will not be extubatable until he is more awake. Critical Time Critical Time (minutes): 35 Level of Care: ICU Anticipated discharge: SNF Anticipated DC Timeframe: Other -: 1. The care of a critical patient is a dynamic process. This note is a pharmaceutical specialty representative synopsis but static in nature. The timeframe for treatments given in order is not necessarily the actual time these treatments may have been done. 2. This patient requires critical care secondary to ongoing requirements for therapy not offered or safe outside the critical care environment. Transfer to a lower level of care will result in altered life or limb morbidity and mortality. 3. Multidisciplinary rounds completed. 4. ABCDE bundle addressed.
[2020-02-24] MEDS ORDERED: CALCIUM GLUCONATE 1000 MG/10 ML INJ IV ONE (09:32)
[2020-02-24] MEDS ORDERED: DEXTROSE 5% IV ONE (10:40)
[2020-02-24] MEDS ORDERED: WATER IV ONE (10:40)
[2020-02-24] MEDS ORDERED: CALCIUM GLUCONATE IV ONE (10:40)
[2020-02-24] MEDS: PANTOPRAZOLE SODIUM 40 MG VIAL IV SCH ×2 (10:41→21:34)
[2020-02-24] MEDS: ASPIRIN 81 MG TABLET, CHEWABLE NG SCH (10:42)
[2020-02-24] MEDS: SODIUM BICARBONATE 650 MG TABLET PO SCH ×2 (10:42→21:34)
[2020-02-24] MEDS: CHOLECALCIFEROL (D3) 1,000 UNIT (25 MCG) TABLET NG SCH (10:42)
[2020-02-24] MEDS: ZINC SULFATE 220 MG CAPSULE NG SCH (10:43)
[2020-02-24] MEDS: AMINO AC/PROTEIN HYDR/WHEY PRO 11 GM/45 ML PKT NG SCH ×3 (10:43→17:43)
[2020-02-24] MEDS: ASCORBIC ACID 500 MG TABLET NG SCH ×2 (10:43→17:45)
[2020-02-24] MEDS: FLUTICASONE NASAL SPRAY 50 MCG/SPRY 120 SPRAY/16 GM NASL SCH ×2 (10:43→21:35)
[2020-02-24] MEDS: CALCITRIOL 1 MCG/ML ORAL SOLN 15 ML NG SCH (10:43)
[2020-02-24] MEDS: INSULIN GLARGINE,HUM.REC.ANLOG 1,000 UNIT/10 ML VIAL SUBCUT SCH (10:45)
[2020-02-24] MEDS: NORMAL SALINE 1000 ML 1,000 ML IV PRN (17:47)
--- NOTE | 2020-02-24 21:12 | NEURO WORKBENCH EEG REPORT ---
EEG Report Patient: Ronal Santamaria Jr ID: [id number] Referring Doctor: Obinna Cota Date: 02/24/2020 Reason for study: Evaluate Epileptiform activity Medications: Vit C, Aspirin, Lipitor, Calcitriol, Vit D, Cardizem, Epoetin, Lantus Insulin, Protonix History: This is a 69 year old male with a history of CHF, HTN, MARK, BPH, and CAD admitted with weakness, elevated troponin, and now intubated. This EEG was requested for evaluation of epileptiform activity as patient is not waking up. EEG Interpretation There were no apparent spontaneous eye openings or closings, but the medical technologist prn manually opened and closed the patients eyes multiple times. The background EEG is minimally reactive to manual eye opening and closure. The backgound EEG shows markedly low amplitudes, especially in the bilateral posterior regions. There was fragmentary, diffuse 4- 7 Hz theta activity with occasional intermittent diffuse polymorphic low amplitude delta activity. With eye closure there is no posterior dominant rhythm present. There were no obvious asymmetries in amplitude or frequencies between the left and right hemispheres. Photic stimulation was done very minimal photic driving was noted, predominantly at 11 Hz (patients eyes were closed during photic stimulation). There was no normal sleep architecture present (ie no vertex waves, K-complexes, or sleep spindles). Other than the diffuse low amplitudes, the next most striking finding was very frequent approximately 1 Hz Frontal Intermittent Rhythmic Delta Activity (FIRDA) throughout the recording. The video at times when the patients eyes were open and FIRDA was present did not show any appreciable ocular bobbing in the vertical plane (up and down eye movements), so these did not appear to be related to eye movements. There were rare poorly formed right anterior temporal sharp waves which were not definitively epileptiform in etiology. There were no seizures noted. The EKG showed an irregular rhythm with rates typically in the 70-90 range with occasional isolated wide complex discharges (consistent with PVCs). EEG Impression: This is a markedly abnormal EEG and consistent with diffuse cerebral dysfunction which is non-specific for etiology. The diffuse low amplitude and diffuse background slowing into the delta-theta range with minimal reactivity would suggest diffuse cerebral dysfunction as may be seen in (but not limited to ) include diffuse hypoxic injury, toxic-metabolic derangements, drug intoxication, or post-ictal state. Frontally Intermittent Delta Activity (FIRDA) is a nonspecific finding that can be seen in multiple different pathologic states, including but not limited to, metabolic encephalopathies, deep midline lesions, and hemispheric lesions. Poorly formed right temporal sharp waves are suggestive of a possible foci of cerebral irritability in the right temporal region which may potentially be epileptogenic. MRI of the brain should be considered to evaluate for any structural abnormalities. Repeat EEG may be done if clinically indicated. The single trace EKG showed persistent arrythmia and further cardiac evaluation should be considered. INTERPRETING NEUROLOGIST: James Simons MD Board certified by the [place] [employer] in Neurology, Clinical Neurophysiology, and Sleep Medicine [facility]
[2020-02-24] MEDS: ATORVASTATIN CALCIUM 40 MG TABLET NG SCH (21:34)
--- NOTE | 2020-02-24 23:30 | PDOC PROGRESS REPORT ---
Subjective Progress Note for:: 02/24/20 Subjective:: This morning I am seeing the patient during dialysis treatment. He remains to be intubated. So far he is tolerating dialysis. He remains to be anuric. Blood pressure is currently acceptable during dialysis. Reason For Visit: WEAKNESS,ELEVATED TROPONIN,CHF Physical Exam Vital Signs: Temp Pulse Resp BP Pulse Ox 97.5 F 74 20 125/61 98 02/24/20 08:44 02/24/20 07:50 02/24/20 08:44 02/24/20 08:44 02/24/20 08:44 Pulse Oximeter Nocturnal Start: 02/08/20 13:55 Freq: RTQ4 Status: Complete Protocol: Document 02/09/20 04:00 LRO (Rec: 02/09/20 05:38 LRO [id number]) Nocturnal Pulse Oximetry Equipment Usage Equipment in Use Oxygen Delivery Method (includes room Room Air air) O2 Sat by Pulse Oximetry (92-100) 95 Continuous SpO2 Machine # 2 Pulse Oximeter Nocturnal Start: 02/10/20 11:39 Freq: RTQ4 Status: Complete Protocol: Document 02/11/20 04:06 PMU (Rec: 02/11/20 05:06 PMU [email or web address]) Nocturnal Pulse Oximetry Equipment Usage Equipment in Use Oxygen Delivery Method (includes room Room Air air) O2 Sat by Pulse Oximetry (92-100) 93 Continuous SpO2 Machine # N2 Intake & Output 02/23/20 02/24/20 02/25/20 06:59 06:59 06:59 Intake Total 1795 1530 Output Total 590 1030 100 Balance 1205 500 -100 Weight 113.2 kg 113.2 kg Vitals during dialysis: Blood pressure 114/46, heart rate of 103-93, respiration of 18, on mechanical ventilation, blood flow rate of 250 mL/min and dialysate flow rate of 600 mL/min. Exam: Physical exam is limited due to COVID virus infection. General appearance: PRESENT: Currently intubated and sedated. Head exam: PRESENT: atraumatic, normocephalic Eye exam: PRESENT: Eyes are closed Respiratory exam: PRESENT: Reportedly coarse breath sounds per our dialysis nurse Cardiovascular exam: [PRESENT: Reportedly irregularly irregular-+S1, +S2. Extremities exam: Reportedly with grade 1 bilateral pitting edema Neurological exam: Sedated. Skin exam: [PRESENT: Pale Cardiovascular exam: PRESENT: +S1, +S2 GI/Abdominal exam: PRESENT: normal bowel sounds, soft. ABSENT: organomegaly, tenderness Results Laboratory Results: 02/24/20 07:00 02/24/20 07:00 02/23/20 02/23/20 02/24/20 10:05 21:30 07:00 WBC 10.2 RBC 2.68 L Hgb 8.0 L Hct 23.8 L MCV 89 MCH 30.0 MCHC 33.7 RDW 17.0 H Plt Count 85 L Seg Neutrophils % Sodium 135.4 L Potassium 5.1 H Chloride 102 Carbon Dioxide 14 L Anion Gap 19 BUN 184 H Creatinine 7.19 H Est GFR ( Amer) 9 L Glucose 135 H Calcium 6.3 L* Blood Type O POSITIVE Antibody Screen NEGATIVE 02/24/20 07:00 WBC 13.7 H RBC 2.83 L Hgb 8.5 L Hct 25.0 L MCV 88 MCH 30.0 MCHC 34.0 RDW 16.7 H Plt Count 95 L Seg Neutrophils % Not Reportable Sodium Potassium Chloride Carbon Dioxide Anion Gap BUN Creatinine Est GFR ( Amer) Glucose Calcium Blood Type Antibody Screen 02/21/20 09:00 Tracheal Aspirate Gram Stain - Final 02/21/20 09:00 Tracheal Aspirate Sputum Culture - Final Mrsa (Meth Resis Staph Aureus) Yeast, Not Jerri Albicans Normal Betsey Absent 02/08/20 02/08/20 02/21/20 09:49 13:11 04:50 Troponin I 0.160 0.155 NT-Pro-B Natriuret Pep 5540 H 82252 H Impressions: Hip/Pelvis X-Ray 02/08/20 00:00 IMPRESSION: No acute fracture. Severe degenerative changes of the left hip. Knee X-Ray 02/08/20 00:00 IMPRESSION: NEGATIVE STUDY OF THE RIGHT KNEE. NO RADIOGRAPHIC EVIDENCE OF ACUTE INJURY. Head CT 02/08/20 10:19 IMPRESSION: MILD CHRONIC CHANGES OF ATROPHY AND MICROVASCULAR ISCHEMIA. NO ACUTE PROCESS. EVIDENCE OF ACUTE STROKE: NO. Renal Ultrasound 02/21/20 00:00 IMPRESSION: Increased echogenicity of the renal parenchyma suggestive of underlying chronic medical renal disease. There is no hydronephrosis. There is a Ryan catheter within the urinary bladder. Chest X-Ray 02/23/20 00:00 IMPRESSION: No change from 02/20/2020 Assessment & Plan - Diagnosis (1) Acute kidney injury superimposed on chronic kidney disease Is this a current diagnosis for this admission?: Yes Plan: Patient is still anuric requiring renal replacement therapy. We will do dialysis today for 3 hours, using the patient's left femoral dialysis catheter, with 3 calcium with 2 potassium bath, blood flow rate of 250 mL per minute, dialysate flow rate of 600 mL per minute, ultrafiltration 2 L as tolerated, no heparin and Procrit with 20,000 units during dialysis intravenou sly. Patient is currently closely monitored during dialysis treatment. (2) Acute respiratory failure due to COVID-19 Is this a current diagnosis for this admission?: Yes Plan: Per sales marketing. (3) Metabolic acidosis Is this a current diagnosis for this admission?: Yes Plan: On hemodialysis. (4) Hypocalcemia Is this a current diagnosis for this admission?: Yes Plan: Currently on calcitriol and vitamin D. Will adjust calcium bath on dialysis. (5) Hyperkalemia Is this a current diagnosis for this admission?: Yes (6) Anemia Qualifiers: Anemia type: iron deficiency Is this a current diagnosis for this admission?: Yes (7) Atrial fibrillation Qualifiers: Atrial fibrillation type: persistent (not longstanding) Qualified Code(s): I48.19 - Other persistent atrial fibrillation; I48.1 - Persistent atrial fi brillation Is this a current diagnosis for this admission?: Yes (8) COVID-19 virus infection Is this a current diagnosis for this admission?: Yes (9) MARK (obstructive sleep apnea) Is this a current diagnosis for this admission?: Yes - Time Time with patient: 15-25 minutes
[2020-02-25 04:52] LABS: HEMATOCRIT 22.1 % (37.9-51.0); MEAN CORPUSCULAR HEMOGLOBIN 30.2 pg (27.0-33.4); MEAN CORPUSCULAR VOLUME 86 fl (80-97); RED BLOOD COUNT 2.56 10^6/uL (4.35-5.55); RED CELL DISTRIBUTION WIDTH 16.1 % (11.5-14.0); WHITE BLOOD COUNT 12.3 10^3/uL (4.0-10.5)
[2020-02-25 04:55] LABS: ANION GAP 18 (5-19); CARBON DIOXIDE 21 mmol/L (22-30); CHLORIDE 97 mmol/L (98-107); GLUCOSE 133 mg/dL (75-110); TRIGLYCERIDES 136 mg/dL (<150)
[2020-02-25 05:04] LABS: BLOOD UREA NITROGEN 133 mg/dL (7-20)
[2020-02-25 05:05] LABS: CALCIUM 6.8 mg/dL (8.4-10.2)
[2020-02-25] MEDS: INSULIN LISPRO 100 UNIT/ML 3 ML VIAL SUBCUT SCH ×4 (05:17→23:23)
[2020-02-25] MEDS: DILTIAZEM HCL 90 MG TABLET PO SCH ×4 (05:17→23:22)
[2020-02-25 05:33] LABS: PLATELET COUNT 83 10^3/uL (150-450)
[2020-02-25 05:35] LABS: HEMOGLOBIN 7.7 g/dL (13.5-17.0)
[2020-02-25 05:38] LABS: ABSOLUTE LYMPHOCYTES# (MANUAL) 0.4 10^3/uL (0.5-4.7); BASOPHILS % (MANUAL) 0 % (0-2); EOSINOPHILS % (MANUAL) 0 % (0-6); LYMPHOCYTES % (MANUAL) 3 % (13-45); MONOCYTES % (MANUAL) 0 % (3-13); SEGMENTED NEUTROPHILS % (MAN) 97 % (42-78); TOTAL CELLS COUNTED 100
[2020-02-25 05:39] LABS: ANISOCYTOSIS 1+; OVALOCYTES 1+; POIKILOCYTOSIS 1+; TOXIC GRANULATION 1+
[2020-02-25 05:40] LABS: PLATELET COMMENT DECREASED
--- NOTE | 2020-02-25 07:41 | PDOC CRITICAL CARE PROG REPORT ---
General Date:: 02/25/20 ICU Day:: 13 Ventilator Day:: 13 Hospital Day:: 17 Resuscitation Status: Full Code Events in the past 12 to 24 Hours:: More anemic, unable to wean. Review of systems relevant to events:: Pulmonary, renal, CV. Reason for ICU Addmission:: Acute respiratory distress and need for intubation - Medications: Medications reviewed and adjusted accordingly: Yes Vasopressors:: None Sedation:: Precedex Physical Exam Vital Signs: Temp Pulse Resp BP Pulse Ox 98.1 F 93 26 H 135/46 H 98 02/25/20 06:00 02/24/20 22:00 02/25/20 06:00 02/25/20 05:59 02/25/20 06:00 Pulse Oximeter Nocturnal Start: 02/08/20 13:55 Freq: RTQ4 Status: Complete Protocol: Document 02/09/20 04:00 LRO (Rec: 02/09/20 05:38 LRO [id number]) Nocturnal Pulse Oximetry Equipment Usage Equipment in Use Oxygen Delivery Method (includes room Room Air air) O2 Sat by Pulse Oximetry (92-100) 95 Continuous SpO2 Machine # 2 Pulse Oximeter Nocturnal Start: 02/10/20 11:39 Freq: RTQ4 Status: Complete Protocol: Document 02/11/20 04:06 PMU (Rec: 02/11/20 05:06 PMU [email or web address]) Nocturnal Pulse Oximetry Equipment Usage Equipment in Use Oxygen Delivery Method (includes room Room Air air) O2 Sat by Pulse Oximetry (92-100) 93 Continuous SpO2 Machine # N2 Intake & Output 02/24/20 02/25/20 02/26/20 06:59 06:59 06:59 Intake Total 1530 1598 Output Total 1030 2600 Balance 500 -1002 Weight 113.2 kg 120.3 kg Weight/Height Weight 120.3 kg Height 5 ft 9 in General appearance: PRESENT: no acute distress, obese Head exam: PRESENT: atraumatic, normocephalic Eye exam: PRESENT: conjunctiva pink, EOMI, PERRLA. ABSENT: scleral icterus Ear exam: PRESENT: normal external ear exam Mouth exam: PRESENT: moist, tongue midline Respiratory exam: PRESENT: clear to auscultation kevyn, decreased breath sounds. ABSENT: rales, rhonchi, wheezes Cardiovascular exam: PRESENT: RRR. ABSENT: diastolic murmur, rubs, systolic murmur GI/Abdominal exam: PRESENT: normal bowel sounds, soft. ABSENT: distended, guarding, mass, organolmegaly, rebound, tenderness Rectal exam: PRESENT: deferred Gentrourinary exam: PRESENT: indwelling catheter Extremities exam: PRESENT: +1 edema Musculoskeletal exam: PRESENT: normal inspection Neurological exam: PRESENT: altered, CN II-XII grossly intact, other - Opens his eyes to tactile stimulation. Not purposeful. Skin exam: PRESENT: dry, intact, warm. ABSENT: cyanosis, rash Tubes/Lines: PRESENT: Endotracheal Tube, Central Line, Nasogastic Tube Laboratory/Radiographs Laboratory Results: 02/25/20 04:15 02/25/20 04:15 02/24/20 02/24/20 02/25/20 07:00 07:00 04:15 WBC 13.7 H RBC 2.83 L Hgb 8.5 L Hct 25.0 L MCV 88 MCH 30.0 MCHC 34.0 RDW 16.7 H Plt Count 95 L Seg Neutrophils % Not Reportable Sodium 135.4 L 136.0 L Potassium 5.1 H 4.0 D Chloride 102 97 L Carbon Dioxide 14 L 21 L Anion Gap 19 18 BUN 184 H 133 H D Creatinine 7.19 H 5.41 H Est GFR ( Amer) 9 L 13 L Glucose 135 H 133 H Calcium 6.3 L* 6.8 L* Ionized Calcium Tessa Triglycerides 136 02/25/20 02/25/20 04:15 04:15 WBC 12.3 H RBC 2.56 L Hgb 7.7 L Hct 22.1 L MCV 86 MCH 30.2 MCHC 35.0 RDW 16.1 H Plt Count 83 L Seg Neutrophils % Not Reportable Sodium Potassium Chloride Carbon Dioxide Anion Gap BUN Creatinine Est GFR ( Amer) Glucose Calcium Ionized Calcium Tessa 0.93 L Triglycerides 02/08/20 02/08/20 02/21/20 09:49 13:11 04:50 Troponin I 0.160 0.155 NT-Pro-B Natriuret Pep 5540 H 70861 H Impressions: Hip/Pelvis X-Ray 02/08/20 00:00 IMPRESSION: No acute fracture. Severe degenerative changes of the left hip. Knee X-Ray 02/08/20 00:00 IMPRESSION: NEGATIVE STUDY OF THE RIGHT KNEE. NO RADIOGRAPHIC EVIDENCE OF ACUTE INJURY. Head CT 02/08/20 10:19 IMPRESSION: MILD CHRONIC CHANGES OF ATROPHY AND MICROVASCULAR ISCHEMIA. NO ACUTE PROCESS. EVIDENCE OF ACUTE STROKE: NO. Renal Ultrasound 02/21/20 00:00 IMPRESSION: Increased echogenicity of the renal parenchyma suggestive of und erlying chronic medical renal disease. There is no hydronephrosis. There is a Ryan catheter within the urinary bladder. Chest X-Ray 02/23/20 00:00 IMPRESSION: No change from 02/20/2020 EKG: NSR All labs, radiographs, diagnostic studies and EKGs were personally reviewed: Yes In addition, reports of radiographic and diagnostic studies were read: Yes Assessment and Plan - Diagnosis (1) Acute respiratory failure due to COVID-19 Is this a current diagnosis for this admission?: Yes Plan: Still positive as of 02/19. (2) Tachypnea Is this a current diagnosis for this admission?: Yes Plan: More controlled (3) Acute on chronic diastolic CHF (congestive heart failure) Is this a current diagnosis for this admission?: Yes Plan: Stable (4) Coronary artery disease Qualifiers: Coronary Disease-Associated Artery/Lesion type: unspecified vessel or lesion type [place] vs. transplanted heart: [place] heart Associated angina: with unspecified angina Qualified Code(s): I25.119 - Atherosclerotic heart disease of [place] coronary artery with unspecified angina pectoris Is this a current diagnosis for this admission?: Yes Plan: Inactive (5) Elevated brain natriuretic peptide (BNP) level Is this a current diagnosis for this admission?: Yes Plan: Check again with AM labs. (6) MARK (obstructive sleep apnea) Is this a current diagnosis for this admission?: Yes Plan: Not an issue while intubated. (7) Obesity (BMI 30-39.9) Is this a current diagnosis for this admission?: Yes Plan: This will make him at risk for COVID mortality. (8) Stage III chronic kidney disease Is this a current diagnosis for this admission?: Yes Plan: He is now on HD. Said to be anuric. U/O only 30-40/shift. (9) Anemia Qualifiers: Anemia type: iron deficiency Is this a current diagnosis for this admission?: Yes Plan: Do to renal disease and inflammation. Does not need transfusion yet. Plan Summary: Will try to wean vent. Start Procrit. No tx yet. Critical Time Critical Time (minutes): 35 Level of Care: ICU Anticipated discharge: Acute Rehab Anticipated DC Timeframe: Other -: 1. The care of a critical patient is a dynamic process. This note is a sales solutions representative synopsis but static in nature. The timeframe for treatments given in order is not necessarily the actual time these treatments may have been done. 2. This patient requires critical care secondary to ongoing requirements for therapy not offered or safe outside the critical care environment. Transfer to a lower level of care will result in altered life or limb morbidity and mortality. 3. Multidisciplinary rounds completed. 4. ABCDE bundle addressed.
--- NOTE | 2020-02-25 08:05 | Progress Note ---
Provider Note Provider Note: spoke with Teresa GODDARD patient is Covid 19 positive and had drop in Hgb , there is a suspicion for UGIB will need to d/c tube feeds consent will need to be obtained high risk patient with overall significant mortality will attempt EGD will schedule on later this am full note to follow
[2020-02-25] MEDS: CALCIUM GLUC IN NACL, ISO-OSM 1 GM/50 ML RTUPB IV SCH ×2 (09:53→10:09)
[2020-02-25] MEDS: DEXMEDETOMIDINE IN 0.9 % NACL 400 MCG/100 ML RTUPB IV PRN (09:54)
[2020-02-25] MEDS: PANTOPRAZOLE SODIUM 40 MG VIAL IV SCH ×2 (09:55→21:03)
[2020-02-25] MEDS: ASPIRIN 81 MG TABLET, CHEWABLE NG SCH (09:55)
[2020-02-25] MEDS: ASCORBIC ACID 500 MG TABLET NG SCH ×2 (09:55→17:46)
[2020-02-25] MEDS: FLUTICASONE NASAL SPRAY 50 MCG/SPRY 120 SPRAY/16 GM NASL SCH ×2 (09:56→21:02)
[2020-02-25] MEDS: ZINC SULFATE 220 MG CAPSULE NG SCH (09:56)
[2020-02-25] MEDS: SODIUM BICARBONATE 650 MG TABLET PO SCH ×2 (09:56→21:03)
[2020-02-25] MEDS: CHOLECALCIFEROL (D3) 1,000 UNIT (25 MCG) TABLET NG SCH (09:56)
[2020-02-25] MEDS: CALCITRIOL 1 MCG/ML ORAL SOLN 15 ML NG SCH (09:56)
[2020-02-25] MEDS: INSULIN GLARGINE,HUM.REC.ANLOG 1,000 UNIT/10 ML VIAL SUBCUT SCH (09:57)
[2020-02-25] MEDS: AMINO AC/PROTEIN HYDR/WHEY PRO 11 GM/45 ML PKT NG SCH ×3 (10:02→17:43)
[2020-02-25] MEDS: EPOETIN ALFA-EPBX 10,000 UNIT/ML VIAL (RENAL) IV SCH (10:09)
--- NOTE | 2020-02-25 10:14 | PDOC CONSULTATION ---
Consultation Consult Date: 02/24/20 Provider Consulted: IBRAHIMA COOLEY Consult reason:: ? upper GI bleeding History of Present Illness Admission Date/PCP: 02/08/20 13:[facility] History of Present Illness: INES TURNER JR is a 69 year old male I was called on patient for drop in Hgb and possible evaluation of UGIB is in the ICU, Covid 19 positive and intubated significant issues including renal compromise patient is currently on tube feedings overall outlook is poor but family wishes for continued heroic measures patient had drop in Hgb and EGD is requested all anticoagulation was stopped over the weekend Past Medical History Cardiac Medical History: Reports: Congestive Heart Failure, Coronary Artery Disease, Hypertension Denies: Atrial Fibrillation, DVT, Myocardial Infarction, Hyperlipidema, Pulmonary Embolism Pulmonary Medical History: Reports: Respiratory Failure, Sleep Apnea Denies: Asthma, Bronchitis, Chronic Obstructive Pulmonary Disease (COPD), Pneumonia Neurological Medical History: Denies: Seizures Endocrine Medical History: Denies: Diabetes Mellitus Type 1, Diabetes Mellitus Type 2, Hyperthyroidism, Hypothyroidism GI Medical History: Denies: Cirrhosis, Crohn's Disease, Gastroesophageal Reflux Disease, Hepatitis, Ulcerative Colitis Musculoskeltal Medical History: Denies: Arthritis, Gout Skin Medical History: Denies: Eczema, Psoriasis Psychiatric Medical History: Denies: Depression Hematology: Denies: Anemia, Bleeding Tendencies Past Surgical History Past Surgical History: Reports: Cardiac Catheterization, Coronary Artery Bypass Graft Social History Smoking Status: Former Smoker Last Time Smoked: 1999 Frequency of Alcohol Use: None Hx Recreational Drug Use: No Drugs: None Hx Prescription Drug Abuse: No - Advance Directive Resuscitation Status: Full Code Family History Family History: DM, Hypertension. denies: CAD, Malignancy Parental Family History Reviewed: Yes Children Family History Reviewed: Unknown Sibling(s) Family History Reviewed.: Unknown Medication/Allergy Home Medications: Aspirin [Aspirin 81 mg Chewable Tablet] 81 mg PO DAILY 01/29/20 Clopidogrel Bisulfate [Plavix 75 mg Tablet] 75 mg PO DAILY #30 tablet 02/03/20 Metoprolol Succinate [Toprol Xl 50 mg Tab.sr] 50 mg PO DAILY #30 tab.sr.24h 02/03/20 Sacubitril/Valsartan [Entresto 49 mg/51 mg Tablet] 1 tab PO Q12 #60 tablet 01/24 Allergies/Adverse Reactions: No Known Allergies Allergy (Verified 02/08/20 10:21) Review of Systems Constitutional: PRESENT: weakness Eyes: ABSENT: visual disturbances Ears: ABSENT: hearing changes Nose, Mouth, and Throat: ABSENT: mouth pain Respiratory: ABSENT: hemoptysis Gastrointestinal: ABSENT: diarrhea Genitourinary: ABSENT: hematuria Musculoskeletal: ABSENT: joint swelling Integumentary: ABSENT: pruritus Neurological: ABSENT: abnormal movements, syncope, tremor(s) Hematologic/Lymphatic: ABSENT: easy bruising, lymphadenopathy Physical Exam Vital Signs: Temp Pulse Resp BP Pulse Ox 98.4 F 111 H 30 H 91/39 L 95 02/25/20 10:00 02/25/20 08:00 02/25/20 10:00 02/25/20 09:59 02/25/20 10:00 Pulse Oximeter Nocturnal Start: 02/08/20 13:55 Freq: RTQ4 Status: Complete Protocol: Document 02/09/20 04:00 LRO (Rec: 02/09/20 05:38 LRO [id number]) Nocturnal Pulse Oximetry Equipment Usage Equipment in Use Oxygen Delivery Method (includes room Room Air air) O2 Sat by Pulse Oximetry (92-100) 95 Continuous SpO2 Machine # 2 Pulse Oximeter Nocturnal Start: 02/10/20 11:39 Freq: RTQ4 Status: Complete Protocol: Document 02/11/20 04:06 PMU (Rec: 02/11/20 05:06 PMU [email or web address]) Nocturnal Pulse Oximetry Equipment Usage Equipment in Use Oxygen Delivery Method (includes room Room Air air) O2 Sat by Pulse Oximetry (92-100) 93 Continuous SpO2 Machine # N2 Intake & Output 02/24/20 02/25/20 02/26/20 06:59 06:59 06:59 Intake Total 1530 1698 Output Total 1030 2600 15 Balance 500 -902 -15 Weight 113.2 kg 120.3 kg in Head exam: PRESENT: atraumatic, normocephalic Eye exam: ABSENT: nystagmus, scleral icterus Mouth exam: PRESENT: moist, neck supple Throat exam: ABSENT: tonsillar exudate, tonsillogmegaly Neck exam: ABSENT: meningismus, thyromegaly Respiratory exam: PRESENT: symmetrical. ABSENT: rhonchi Cardiovascular exam: PRESENT: RRR, +S1, +S2 GI/Abdominal exam: PRESENT: soft. ABSENT: rebound, rigid, tenderness Extremities exam: ABSENT: joint swelling Skin exam: ABSENT: pallor, petechiae, urticaria, vesicles Results Laboratory Results: 02/25/20 04:15 02/25/20 04:15 02/25/20 02/25/20 02/25/20 04:15 04:15 04:15 WBC 12.3 H RBC 2.56 L Hgb 7.7 L Hct 22.1 L MCV 86 MCH 30.2 MCHC 35.0 RDW 16.1 H Plt Count 83 L Seg Neutrophils % Not Reportable Sodium 136.0 L Potassium 4.0 D Chloride 97 L Carbon Dioxide 21 L Anion Gap 18 BUN 133 H D Creatinine 5.41 H Est GFR ( Amer) 13 L Glucose 133 H Calcium 6.8 L* Ionized Calcium Tessa 0.93 L Triglycerides 136 02/08/20 02/08/20 02/21/20 09:49 13:11 04:50 Troponin I 0.160 0.155 NT-Pro-B Natriuret Pep 5540 H 09937 H Impressions: Hip/Pelvis X-Ray 02/08/20 00:00 IMPRESSION: No acute fracture. Severe degenerative changes of the left hip. Knee X-Ray 02/08/20 00:00 IMPRESSION: NEGATIVE STUDY OF THE RIGHT KNEE. NO RADIOGRAPHIC EVIDENCE OF ACUTE INJURY. Head CT 02/08/20 10:19 IMPRESSION: MILD CHRONIC CHANGES OF ATROPHY AND MICROVASCULAR ISCHEMIA. NO ACUTE PROCESS. EVIDENCE OF ACUTE STROKE: NO. Renal Ultrasound 02/21/20 00:00 IMPRESSION: Increased echogenicity of the renal parenchyma suggestive of underlying chronic medical renal disease. There is no hydronephrosis. There is a Ryan catheter within the urinary bladder. Chest X-Ray 02/23/20 00:00 IMPRESSION: No change from 02/20/2020 Assessment & Plan - Diagnosis (1) Anemia Qualifiers: Anemia type: iron deficiency Is this a current diagnosis for this admission?: Yes Plan: ? possible UGIB will attempt EGD Risks, benefits and alternatives discussed with family further recommendations to follow - Time Time Spent: 50 to 70 Minutes
[2020-02-25] MEDS ORDERED: ONDANSETRON HCL INJ/PF 4 MG/2 ML SDV ONE (10:40)
[2020-02-25] MEDS ORDERED: MIDAZOLAM 2 MG/2 ML INJ ONE (10:40)
[2020-02-25] MEDS ORDERED: DIPHENHYDRAMINE HCL 50 MG/ML VIAL ONE (10:40)
[2020-02-25] MEDS ORDERED: NALOXONE HCL INJ/PF 0.4 MG/1 ML SDV ONE (10:40)
[2020-02-25] MEDS ORDERED: FLUMAZENIL INJ 0.5 MG/5 ML VIAL ONE (10:40)
[2020-02-25] MEDS ORDERED: FENTANYL CITRATE INJ/PF 100 MCG/2 ML AMPUL ONE (10:40)
[2020-02-25] MEDS ORDERED: GLUCAGON,HUMAN RECOMB 1 MG INJ ONE (10:41)
[2020-02-25] MEDS ORDERED: EPINEPHRINE INJ 1 MG/10 ML DISP.SYRIN ONE (10:41)
--- NOTE | 2020-02-25 11:33 | Operative Report ---
Operative Report DATE OF SURGERY: 02/25/20 Operative Report: The risks benefits and alternatives of the procedure explained to the patient in detail and informed consent is obtained.A GIF Olympus video scope was inserted into the patient's mouth and hypopharynx, the esophagus is identified intubated and insufflated, the scope was then advanced through the esophagus stomach and duodenum, retroflexion maneuver is done the esophagus stomach and first and second portions of the duodenum examined PREOPERATIVE DIAGNOSIS: Possible upper GI bleed POSTOPERATIVE DIAGNOSIS: No upper GI bleeding noted. Several small erosions noted. Biopsies obtained OPERATION: EGD with biopsy SURGEON: IBRAHIMA COOLEY ANESTHESIA: Other - none TISSUE REMOVED OR ALTERED: As noted above COMPLICATIONS: None. ESTIMATED BLOOD LOSS: None. INTRAOPERATIVE FINDINGS: As noted above PROCEDURE: Patient tolerated the procedure well. No immediate postprocedure complications are noted. No desaturation noted Wait on biopsies Follow as needed
[2020-02-25] MEDS: ATORVASTATIN CALCIUM 40 MG TABLET NG SCH (21:03)
--- NOTE | 2020-02-25 22:58 | PDOC PROGRESS REPORT ---
Subjective Progress Note for:: 02/25/20 Subjective:: Patient remains to be intubated. His urine output was 100 mL for the past 24 hours. He has a stool for occult blood positive with a significant drop in his hemoglobin. He is a scheduled to have EGD per Dr. Turner. He is on sedation but no pressors. Reason For Visit: WEAKNESS,ELEVATED TROPONIN,CHF Physical Exam Vital Signs: Temp Pulse Resp BP Pulse Ox 98.1 F 96 26 H 135/46 H 98 02/25/20 06:00 02/25/20 08:00 02/25/20 06:00 02/25/20 05:59 02/25/20 06:00 Pulse Oximeter Nocturnal Start: 02/08/20 13:55 Freq: RTQ4 Status: Complete Protocol: Document 02/09/20 04:00 LRO (Rec: 02/09/20 05:38 LRO [email or web address]) Nocturnal Pulse Oximetry Equipment Usage Equipment in Use Oxygen Delivery Method (includes room Room Air air) O2 Sat by Pulse Oximetry (92-100) 95 Continuous SpO2 Machine # 2 Pulse Oximeter Nocturnal Start: 02/10/20 11 :39 Freq: RTQ4 Status: Complete Protocol: Document 02/11/20 04:06 PMU (Rec: 02/11/20 05:06 PMU [email or web address]) Nocturnal Pulse Oximetry Equipment Usage Equipment in Use Oxygen Delivery Method (includes room Room Air air) O2 Sat by Pulse Oximetry (92-100) 93 Continuous SpO2 Machine # N2 Intake & Output 02/24/20 02/25/20 02/26/20 06:59 06:59 06:59 Intake Total 1530 1598 Output Total 1030 2600 Balance 500 -1002 Weight 113.2 kg 120.3 kg Exam: Limited physical exam due to COVID-19 infection. General appearance: PRESENT: Intubated Head exam: PRESENT: atraumatic, normocephalic Respiratory exam: PRESENT: Reported coarse breath sounds. ABSENT: crackles, rales, rhonchi, unlabored, wheezes Extremities exam: Grade 1 bilateral lower extremity pitting edema Neurological exam: PRESENT: Sedated Skin exam: PRESENT: dry, warm, Cardiovascular exam: PRESENT: +S1, +S2 GI/Abdominal exam: PRESENT: normal bowel sounds, soft. ABSENT: organomegaly, tenderness Results Laboratory Results: 02/25/20 04:15 02/25/20 04:15 02/25/20 02/25/20 02/25/20 04:15 04:15 04:15 WBC 12.3 H RBC 2.56 L Hgb 7.7 L Hct 22.1 L MCV 86 MCH 30.2 MCHC 35.0 RDW 16.1 H Plt Count 83 L Seg Neutrophils % Not Reportable Sodium 136.0 L Potassium 4.0 D Chloride 97 L Carbon Dioxide 21 L Anion Gap 18 BUN 133 H D Creatinine 5.41 H Est GFR ( Amer) 13 L Glucose 133 H Calcium 6.8 L* Ionized Calcium Tessa 0.93 L Triglycerides 136 02/08/20 02/08/20 02/21/20 09:49 13:11 04:50 Troponin I 0.160 0.155 NT-Pro-B Natriuret Pep 5540 H 75545 H Impressions: Hip/Pelvis X-Ray 02/08/20 00:00 IMPRESSION: No acute fracture. Severe degenerative changes of the left hip. Knee X-Ray 02/08/20 00:00 IMPRESSION: NEGATIVE STUDY OF THE RIGHT KNEE. NO RADIOGRAPHIC EVIDENCE OF ACUTE INJURY. Head CT 02/08/20 10:19 IMPRESSION: MILD CHRONIC CHANGES OF ATROPHY AND MICROVASCULAR ISCHEMIA. NO ACUTE PROCESS. EVIDENCE OF ACUTE STROKE: NO. Renal Ultrasound 02/21/20 00:00 IMPRESSION: Increased echogenicity of the renal parenchyma suggestive of underlying chronic medical renal disease. There is no hydronephrosis. There is a Ryan catheter within the urinary bladder. Chest X-Ray 02/23/20 00:00 IMPRESSION: No change from 02/20/2020 Assessment & Plan - Diagnosis (1) Acute kidney injury superimposed on chronic kidney disease Is this a current diagnosis for this admission?: Yes Plan: Patient is still oligo-anuric requiring renal replacement therapy. We will plan for hemodialysis tomorrow. 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 (3) Metabolic acidosis Is this a current diagnosis for this admission?: Yes Plan: On hemodialysis. Improving. (4) Hypocalcemia Is this a current diagnosis for this admission?: Yes Plan: Currently on calcitriol and vitamin D. Will adjust calcium bath on dialysis. (5) Hyperkalemia Is this a current diagnosis for this admission?: Yes Plan: Resolved. (6) Anemia Qualifiers: Anemia type: iron deficiency Is this a current diagnosis for this admission?: Yes Plan: Call for occult blood positive. Dr. Turner to do EGD. Patient was also started on daily Retacrit by breaker up machine operator service. From nephrology standpoint we will give this during dialysis 3 times a week (7) Atrial fibrillation Qualifiers: Atrial fibrillation type: persistent (not longstanding) Qualified Code(s): I48.19 - Other persistent atrial fibrillation; I48.1 - Persistent atrial fibr illation Is this a current diagnosis for this admission?: Yes (8) COVID-19 virus infection Is this a current diagnosis for this admission?: Yes (9) MARK (obstructive sleep apnea) Is this a current diagnosis for this admission?: Yes - Time Time with patient: 15-25 minutes
[2020-02-26] MEDS: DEXMEDETOMIDINE IN 0.9 % NACL 400 MCG/100 ML RTUPB IV PRN ×3 (03:00→22:11)
[2020-02-26] MEDS ORDERED: HEPARIN SOD (PORCINE) 1,000 UNIT/ML 10 ML VIAL IV PRN (05:00)
[2020-02-26] MEDS ORDERED: NORMAL SALINE 1000 ML 1,000 ML IV PRN (05:00)
[2020-02-26] MEDS: DILTIAZEM HCL 90 MG TABLET PO SCH ×3 (05:33→17:58)
[2020-02-26] MEDS: INSULIN LISPRO 100 UNIT/ML 3 ML VIAL SUBCUT SCH ×3 (05:34→17:07)
[2020-02-26 06:14] LABS: HEMATOCRIT 21.1 % (37.9-51.0); MEAN CORPUSCULAR HEMOGLOBIN 29.8 pg (27.0-33.4); MEAN CORPUSCULAR VOLUME 87 fl (80-97); PLATELET COUNT 101 10^3/uL (150-450); RED BLOOD COUNT 2.41 10^6/uL (4.35-5.55); WHITE BLOOD COUNT 14.4 10^3/uL (4.0-10.5)
[2020-02-26 06:17] LABS: ANION GAP 19 (5-19); CARBON DIOXIDE 19 mmol/L (22-30); CHLORIDE 96 mmol/L (98-107); GLUCOSE 138 mg/dL (75-110); POTASSIUM 4.6 mmol/L (3.6-5.0)
[2020-02-26 06:31] LABS: HEMOGLOBIN 7.2 g/dL (13.5-17.0)
[2020-02-26 06:32] LABS: ABSOLUTE MONOCYTES # (MANUAL) 0.3 10^3/uL (0.1-1.4); ANISOCYTOSIS 1+; BASOPHILS % (MANUAL) 0 % (0-2); BLOOD UREA NITROGEN 164 mg/dL (7-20); EOSINOPHILS % (MANUAL) 0 % (0-6); LYMPHOCYTES % (MANUAL) 0 % (13-45); MONOCYTES % (MANUAL) 2 % (3-13); SEGMENTED NEUTROPHILS % (MAN) 98 % (42-78); TOTAL CELLS COUNTED 100
[2020-02-26 06:33] LABS: CALCIUM 6.4 mg/dL (8.4-10.2); PLATELET COMMENT DECREASED
[2020-02-26] MEDS ORDERED: CALCIUM GLUCONATE 1000 MG/10 ML INJ IV ONE (09:35)
--- NOTE | 2020-02-26 09:40 | PDOC CRITICAL CARE PROG REPORT ---
General Date:: 02/26/20 ICU Day:: 14 Ventilator Day:: 14 Hospital Day:: 18 Resuscitation Status: Full Code Events in the past 12 to 24 Hours:: Receiving HD. Sputum C&s with MRSA. Review of systems relevant to events:: Pulmonary. CV, renal. Reason for ICU Addmission:: Acute respiratory distress and need for intubation - Medications: Medications reviewed and adjusted accordingly: Yes Vasopressors:: None Sedation:: Precedex. Physical Exam Vital Signs: Temp Pulse Resp BP Pulse Ox 98.4 F 112 H 23 H 141/70 H 93 02/26/20 08:32 02/26/20 08:30 02/26/20 08:00 02/26/20 08:00 02/26/20 08:00 Pulse Oximeter Nocturnal Start: 02/08/20 13:55 Freq: RTQ4 Status: Complete Protocol: Document 02/09/20 04:00 LRO (Rec: 02/09/20 05:38 LRO [email or web address]) Nocturnal Pulse Oximetry Equipment Usage Equipment in Use Oxygen Delivery Method (includes room Room Air air) O2 Sat by Pulse Oximetry (92-100) 95 Continuous SpO2 Machine # 2 Pulse Oximeter Nocturnal Start: 02/10/20 11:39 Freq: RTQ4 Status: Complete Protocol: Document 02/11/20 04:06 PMU (Rec: 02/11/20 05:06 PMU [email or web address]) Nocturnal Pulse Oximetry Equipment Usage Equipment in Use Oxygen Delivery Method (includes room Room Air air) O2 Sat by Pulse Oximetry (92-100) 93 Continuous SpO2 Machine # N2 Intake & Output 02/25/20 02/26/20 02/27/20 06:59 06:59 06:59 Intake Total 1698 760 Output Total 2600 95 0 Balance -902 665 0 Weight 120.3 kg 117.6 kg Weight/Height Weight 117.6 kg Height 5 ft 9 in General appearance: PRESENT: no acute distress, obese Head exam: PRESENT: atraumatic, normocephalic Eye exam: PRESENT: conjunctiva pink, EOMI, PERRLA. ABSENT: scleral icterus Ear exam: PRESENT: normal external ear exam Mouth exam: PRESENT: moist, tongue midline Respiratory exam: PRESENT: clear to auscultation kevyn. ABSENT: rales, rhonchi, wheezes Cardiovascular exam: PRESENT: RRR, tachycardia. ABSENT: diastolic murmur, rubs, systolic murmur GI/Abdominal exam: PRESENT: normal bowel sounds, soft. ABSENT: distended, guarding, mass, organolmegaly, rebound, tenderness Rectal exam: PRESENT: deferred Gentrourinary exam: PRESENT: indwelling catheter Extremities exam: PRESENT: full ROM. ABSENT: calf tenderness, clubbing, pedal edema Musculoskeletal exam: PRESENT: normal inspection Neurological exam: PRESENT: altered, other - Sedated. Skin exam: PRESENT: dry, intact, warm. ABSENT: cyanosis, rash Tubes/Lines: PRESENT: Endotracheal Tube, Dialysis catheter, Nasogastic Tube Laboratory/Radiographs Laboratory Results: 02/26/20 05:35 02/26/20 05:35 02/26/20 02/26/20 02/26/20 05:35 05:35 05:35 WBC 14.4 H RBC 2.41 L Hgb 7.2 L Hct 21.1 L MCV 87 MCH 29.8 MCHC 34.0 RDW 16.0 H Plt Count 101 L Seg Neutrophils % Not Reportable Sodium 133.8 L Potassium 4.6 Chloride 96 L Carbon Dioxide 19 L Anion Gap 19 BUN 164 H Creatinine 6.04 H Est GFR ( Amer) 11 L Glucose 138 H Calcium 6.4 L* Ionized Calcium Tessa 0.91 L 02/08/20 02/08/20 02/21/20 09:49 13:11 04:50 Troponin I 0.160 0.155 NT-Pro-B Natriuret Pep 5540 H 90331 H Impressions: Hip/Pelvis X-Ray 02/08/20 00:00 IMPRESSION: No acute fracture. Severe degenerative changes of the left hip. Knee X-Ray 02/08/20 00:00 IMPRESSION: NEGATIVE STUDY OF THE RIGHT KNEE. NO RADIOGRAPHIC EVIDENCE OF ACUTE INJURY. Head CT 02/08/20 10:19 IMPRESSION: MILD CHRONIC CHANGES OF ATROPHY AND MICROVASCULAR ISCHEMIA. NO ACUTE PROCESS. EVIDENCE OF ACUTE STROKE: NO. Renal Ultrasound 02/21/20 00:00 IMPRESSION: Increased echogenicity of the renal parenchyma suggestive of und erlying chronic medical renal disease. There is no hydronephrosis. There is a Ryan catheter within the urinary bladder. Chest X-Ray 02/23/20 00:00 IMPRESSION: No change from 02/20/2020 All labs, radiographs, diagnostic studies and EKGs were personally reviewed: Yes In addition, reports of radiographic and diagnostic studies were read: Yes Assessment and Plan - Diagnosis (1) Acute respiratory failure due to COVID-19 Is this a current diagnosis for this admission?: Yes Plan: He is getting closer to extubation, perhaps not today. (2) Tachypnea Is this a current diagnosis for this admission?: Yes Plan: Varibale. Right now his RR rate is in the low 20s. (3) Acute on chronic diastolic CHF (congestive heart failure) Is this a current diagnosis for this admission?: Yes Plan: Not active. (4) Coronary artery disease Qualifiers: Qualified Code(s): I25.119 - Atherosclerotic heart disease of [place] coronary artery with unspecified angina pectoris Is this a current diagnosis for this admission?: Yes Plan: Not active. (5) Elevated brain natriuretic peptide (BNP) level Is this a current diagnosis for this admission?: Yes Plan: Recheck today (6) MARK (obstructive sleep apnea) Is this a current diagnosis for this admission?: Yes (7) Obesity (BMI 30-39.9) Is this a current diagnosis for this admission?: Yes Plan: Chronic (8) Stage III chronic kidney disease Is this a current diagnosis for this admission?: Yes Plan: He is on HD. Tolerating it thus far. (9) Anemia Is this a current diagnosis for this admission?: Yes Plan: This is likely a combination of inflammation and renal disease. May need transfusion soon. Plan Summary: Explore feasabilty of extubation. Critical Time Critical Time (minutes): 35 Level of Care: ICU Anticipated discharge: SNF Anticipated DC Timeframe: Other -: 1. The care of a critical patient is a dynamic process. 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 The timeframe for treatments given in order is not necessarily the actual time these treatments may have been done. 2. This patient requires critical care secondary to ongoing requirements for therapy not offered or safe outside the critical care environment. Transfer to a lower level of care will result in altered life or limb morbidity and mortality. 3. Multidisciplinary rounds completed. 4. ABCDE bundle addressed.
[2020-02-26] MEDS: PANTOPRAZOLE SODIUM 40 MG VIAL IV SCH (10:06)
[2020-02-26] MEDS: ZINC SULFATE 220 MG CAPSULE NG SCH (10:07)
[2020-02-26] MEDS: SODIUM BICARBONATE 650 MG TABLET PO SCH ×2 (10:07→21:39)
[2020-02-26] MEDS: AMINO AC/PROTEIN HYDR/WHEY PRO 11 GM/45 ML PKT NG SCH ×3 (10:07→17:58)
[2020-02-26] MEDS: ASPIRIN 81 MG TABLET, CHEWABLE NG SCH (10:07)
[2020-02-26] MEDS: ASCORBIC ACID 500 MG TABLET NG SCH ×2 (10:07→17:58)
[2020-02-26] MEDS: CHOLECALCIFEROL (D3) 1,000 UNIT (25 MCG) TABLET NG SCH (10:07)
[2020-02-26] MEDS: CALCITRIOL 1 MCG/ML ORAL SOLN 15 ML NG SCH (10:08)
[2020-02-26] MEDS: EPOETIN ALFA-EPBX 10,000 UNIT/ML VIAL (RENAL) IV SCH (10:08)
[2020-02-26] MEDS: FLUTICASONE NASAL SPRAY 50 MCG/SPRY 120 SPRAY/16 GM NASL SCH ×2 (10:09→21:39)
[2020-02-26] MEDS: LINEZOLID 600 MG/300 ML RTUPB IV SCH ×2 (10:37→22:10)
[2020-02-26] MEDS: INSULIN GLARGINE,HUM.REC.ANLOG 1,000 UNIT/10 ML VIAL SUBCUT SCH (10:38)
[2020-02-26] MEDS: CALCIUM GLUCONATE 1 GM/NS 50 ML RTU IV SCH ×4 (11:27→15:28)
--- NOTE | 2020-02-26 21:20 | PDOC PROGRESS REPORT ---
Subjective Progress Note for:: 02/26/20 Subjective:: I am seeing the patient during dialysis treatment this morning. Patient remains to be intubated and now with increased FiO2 requirement of 50% from 45% yesterday. He had an EGD yesterday which did not show any active bleeding, only some erosions. He was started on daily Retacrit by ultrasonic solderer. Currently his blood pressure is holding on with some ultrafiltration during dialysis. Reason For Visit: WEAKNESS,ELEVATED TROPONIN,CHF Physical Exam Vital Signs: Temp Pulse Resp BP Pulse Ox 98.4 F 112 H 23 H 141/70 H 93 02/26/20 08:32 02/26/20 08:30 02/26/20 08:00 02/26/20 08:00 02/26/20 08:00 Pulse Oximeter Nocturnal Start: 02/08/20 13:55 Freq: RTQ4 Status: Complete Protocol: Document 02/09/20 04:00 LRO (Rec: 02/09/20 05:38 LRO [email or web address]) Nocturnal Pulse Oximetry Equipment Usage Equipment in Use Oxygen Delivery Method (includes room Room Air air) O2 Sat by Pulse Oximetry (92-100) 95 Continuous SpO2 Machine # 2 Pulse Oximeter Nocturnal Start: 02/10/20 11:39 Freq: RTQ4 Status: Complete Protocol: Document 02/11/20 04:06 PMU (Rec: 02/11/20 05:06 PMU [email or web address]) Nocturnal Pulse Oximetry Equipment Usage Equipment in Use Oxygen Delivery Method (includes room Room Air air) O2 Sat by Pulse Oximetry (92-100) 93 Continuous SpO2 Machine # N2 Intake & Output 02/25/20 02/26/20 02/27/20 06:59 06:59 06:59 Intake Total 1698 760 Output Total 2600 95 0 Balance -902 665 0 Weight 120.3 kg 117.6 kg Vitals during dialysis: Blood pressure 132/67, heart rate 116, oxygen saturation of 94% with FiO2 of 50%, blood flow rate of 300 mL/min and dialysate flow rate of 800 mL/min. Exam: Limited exam due to COVID-19 infection General appearance: PRESENT: Intubated and sedated Head exam: PRESENT: atraumatic, normocephalic Respiratory exam: PRESENT: Reported coarse breath sounds. ABSENT: crackles, rales, rhonchi, unlabored, wheezes Cardiovascular exam: PRESENT: Regular rate rhythm -+S1, +S2. ABSENT: diastolic murmur, systolic murmur Extremities exam: Grade 2 bilateral lower extremity pitting edema Neurological exam: PRESENT: Sedated. Skin exam: PRESENT: dry, warm, generalized pallor Cardiovascular exam: PRESENT: +S1, +S2 GI/Abdominal exam: PRESENT: normal bowel sounds, soft. ABSENT: organomegaly, tenderness Results Laboratory Results: 02/26/20 05:35 02/26/20 05:35 02/26/20 02/26/20 02/26/20 05:35 05:35 05:35 WBC 14.4 H RBC 2.41 L Hgb 7.2 L Hct 21.1 L MCV 87 MCH 29.8 MCHC 34.0 RDW 16.0 H Plt Count 101 L Seg Neutrophils % Not Reportable Sodium 133.8 L Potassium 4.6 Chloride 96 L Carbon Dioxide 19 L Anion Gap 19 BUN 164 H Creatinine 6.04 H Est GFR ( Amer) 11 L Glucose 138 H Calcium 6.4 L* Ionized Calcium Tessa 0.91 L 02/08/20 02/08/20 02/21/20 09:49 13:11 04:50 Troponin I 0.160 0.155 NT-Pro-B Natriuret Pep 5540 H 69119 H Impressions: Hip/Pelvis X-Ray 02/08/20 00:00 IMPRESSION: No acute fracture. Severe degenerative changes of the left hip. Knee X-Ray 02/08/20 00:00 IMPRESSION: NEGATIVE STUDY OF THE RIGHT KNEE. NO RADIOGRAPHIC EVIDENCE OF ACUTE INJURY. Head CT 02/08/20 10:19 IMPRESSION: MILD CHRONIC CHANGES OF ATROPHY AND MICROVASCULAR ISCHEMIA. NO ACUTE PROCESS. EVIDENCE OF ACUTE STROKE: NO. Renal Ultrasound 02/21/20 00:00 IMPRESSION: Increased echogenicity of the renal parenchyma suggestive of und erlying chronic medical renal disease. There is no hydronephrosis. There is a Ryan catheter within the urinary bladder. Chest X-Ray 02/23/20 00:00 IMPRESSION: No change from 02/20/2020 Assessment & Plan - Diagnosis (1) Acute kidney injury superimposed on chronic kidney disease Is this a current diagnosis for this admission?: Yes Plan: Patient is still oligo-anuric requiring renal replacement therapy. We will do dialysis today for 3 hours, using the patient's left femoral dialysis catheter, with 3 calcium and 2 potassium bath, blood flow rate of 300 mL per minute, dialysate flow rate of 800 mL per minute, ultrafiltration 2 to 3 L as tolerated, no heparin and Retacrit ordered daily by the ultrasonic solderer that given during dialysis. Patient is being closely monitored. (2) Acute respiratory failure due to COVID-19 Is this a current diagnosis for this admission?: Yes Plan: Per ultrasonic solderer. (3) Metabolic acidosis Is this a current diagnosis for this admission?: Yes Plan: On hemodialysis. Improving. (4) Hypocalcemia Is this a current diagnosis for this admission?: Yes Plan: Currently on calcitriol and vitamin D. Will adjust calcium bath on dialysis. (5) Hyperkalemia Is this a current diagnosis for this admission?: Yes Plan: Resolved. (6) Anemia Qualifiers: Anemia type: iron deficiency Is this a current diagnosis for this admission?: Yes Plan: Occult blood positive. Dr. Turner did an EGD which showed only gastric erosions without any evidence of active bleeding. Patient was also started on daily Retacrit by ultrasonic solderer service not given during dialysis. (7) Atrial fibrillation Qualifiers: Atrial fibrillation type: persistent (not longstanding) Qualified Code(s): I48.19 - Other persistent atrial fibrillation; I48.1 - Persistent atrial fibrillation Is this a current diagnosis for this admission?: Yes (8) COVID-19 virus infection Is this a current diagnosis for this admission?: Yes (9) MARK (obstructive sleep apnea) Is this a current diagnosis for this admission?: Yes - Time Time with patient: 15-25 minutes
[2020-02-26] MEDS: ATORVASTATIN CALCIUM 40 MG TABLET NG SCH (21:39)
[2020-02-26] MEDS: ACETAMINOPHEN SOLN 325 MG/10.15 ML UDCUP NG PRN (21:39)
[2020-02-26] MEDS: METOPROLOL TARTRATE PF/INJ 5 MG/5 ML SDV IV PRN (21:40)
[2020-02-27] MEDS: DILTIAZEM HCL 90 MG TABLET PO SCH ×5 (00:18→23:24)
[2020-02-27] MEDS: INSULIN LISPRO 100 UNIT/ML 3 ML VIAL SUBCUT SCH ×5 (00:20→23:28)
--- NOTE | 2020-02-27 03:03 | RADIOLOGY REPORT (SQ) ---
EXAM DESCRIPTION: XR CHEST 1 VIEW COMPLETED DATE/TME: 02/27/2020 00:00 CLINICAL HISTORY: 69 years, Male, NG tube placement COMPARISON: 02/23/2020 chest NUMBER OF VIEWS: 1 TECHNIQUE: Portable chest LIMITATIONS: None. FINDINGS: Heart size is stable. Tip of the enteric tube likely in the proximal stomach. Otherwise stable indwelling tubes/lines/catheters. Post surgical change of the mediastinum. Airspace opacities bilaterally. No pneumothorax IMPRESSION: Tip of the enteric tube is now in the proximal stomach. Other findings of the chest are stable copyright 2011 [employer]- All Rights Reserved
[2020-02-27 04:39] LABS: HEMATOCRIT 19.6 % (37.9-51.0); MEAN CORPUSCULAR HGB CONC 34.2 g/dL (32.0-36.0); MEAN CORPUSCULAR VOLUME 88 fl (80-97); PLATELET COUNT 109 10^3/uL (150-450); RED BLOOD COUNT 2.23 10^6/uL (4.35-5.55); RED CELL DISTRIBUTION WIDTH 15.4 % (11.5-14.0); WHITE BLOOD COUNT 13.1 10^3/uL (4.0-10.5)
[2020-02-27 04:47] LABS: ANION GAP 13 (5-19); CARBON DIOXIDE 23 mmol/L (22-30); CHLORIDE 96 mmol/L (98-107); GLUCOSE 88 mg/dL (75-110); POTASSIUM 4.5 mmol/L (3.6-5.0)
[2020-02-27 04:55] LABS: ABSOLUTE LYMPHOCYTES# (MANUAL) 0.4 10^3/uL (0.5-4.7); BASOPHILS % (MANUAL) 0 % (0-2); EOSINOPHILS % (MANUAL) 0 % (0-6); LYMPHOCYTES % (MANUAL) 3 % (13-45); MONOCYTES % (MANUAL) 0 % (3-13); SEGMENTED NEUTROPHILS % (MAN) 97 % (42-78); TOTAL CELLS COUNTED 100
[2020-02-27 04:56] LABS: ANISOCYTOSIS SLIGHT; PLATELET COMMENT DECREASED; TOXIC GRANULATION SLIGHT
[2020-02-27] MEDS ORDERED: NORMAL SALINE 250 ML IV PRN ×2 (04:59)
[2020-02-27 05:04] LABS: BLOOD UREA NITROGEN 107 mg/dL (7-20)
[2020-02-27 05:05] LABS: CALCIUM 6.7 mg/dL (8.4-10.2)
[2020-02-27] MEDS: NORMAL SALINE 1000 ML 1,000 ML IV PRN (05:47)
[2020-02-27] MEDS: DEXMEDETOMIDINE IN 0.9 % NACL 400 MCG/100 ML RTUPB IV PRN ×2 (06:02→16:36)
[2020-02-27] MEDS: LINEZOLID 600 MG/300 ML RTUPB IV SCH ×2 (10:07→21:09)
[2020-02-27] MEDS: PANTOPRAZOLE SODIUM 40 MG VIAL IV SCH (10:08)
[2020-02-27] MEDS: ASPIRIN 81 MG TABLET, CHEWABLE NG SCH (10:08)
[2020-02-27] MEDS: SODIUM BICARBONATE 650 MG TABLET PO SCH ×2 (10:08→21:09)
[2020-02-27] MEDS: ASCORBIC ACID 500 MG TABLET NG SCH ×2 (10:09→17:59)
[2020-02-27] MEDS: AMINO AC/PROTEIN HYDR/WHEY PRO 11 GM/45 ML PKT NG SCH ×3 (10:09→17:59)
[2020-02-27] MEDS: CALCITRIOL 1 MCG/ML ORAL SOLN 15 ML NG SCH (10:09)
[2020-02-27] MEDS: ZINC SULFATE 220 MG CAPSULE NG SCH (10:09)
[2020-02-27] MEDS: CHOLECALCIFEROL (D3) 1,000 UNIT (25 MCG) TABLET NG SCH (10:09)
[2020-02-27] MEDS: FLUTICASONE NASAL SPRAY 50 MCG/SPRY 120 SPRAY/16 GM NASL SCH ×2 (10:10→21:09)
[2020-02-27] MEDS: INSULIN GLARGINE,HUM.REC.ANLOG 1,000 UNIT/10 ML VIAL SUBCUT SCH (10:30)
--- NOTE | 2020-02-27 12:25 | PDOC CRITICAL CARE PROG REPORT ---
General Date:: 02/27/20 ICU Day:: 15 Ventilator Day:: 15 Hospital Day:: 19 Resuscitation Status: Full Code Events in the past 12 to 24 Hours:: H/H down further, receiving transfusions. Review of systems relevant to events:: Pulmonaty, CV, renal. Reason for ICU Addmission:: Acute respiratory distress and need for intubation - Medications: Medications reviewed and adjusted accordingly: Yes Vasopressors:: None Sedation:: Precedex Physical Exam Vital Signs: Temp Pulse Resp BP Pulse Ox 99.1 F 96 19 143/67 H 97 02/27/20 11:35 02/27/20 11:35 02/27/20 11:35 02/27/20 11:35 02/27/20 11:35 Pulse Oximeter Nocturnal Start: 02/08/20 13:55 Freq: RTQ4 Status: Complete Protocol: Document 02/09/20 04:00 LRO (Rec: 02/09/20 05:38 LRO [id number]) Nocturnal Pulse Oximetry Equipment Usage Equipment in Use Oxygen Delivery Method (includes room Room Air air) O2 Sat by Pulse Oximetry (92-100) 95 Continuous SpO2 Machine # 2 Pulse Oximeter Nocturnal Start: 02/10/20 11:39 Freq: RTQ4 Status: Complete Protocol: Document 02/11/20 04:06 PMU (Rec: 02/11/20 05:06 PMU [email or web address]) Nocturnal Pulse Oximetry Equipment Usage Equipment in Use Oxygen Delivery Method (includes room Room Air air) O2 Sat by Pulse Oximetry (92-100) 93 Continuous SpO2 Machine # N2 Intake & Output 02/26/20 02/27/20 02/28/20 06:59 06:59 06:59 Intake Total 760 3346 390 Output Total 95 3028 0 Balance 665 318 390 Weight 117.6 kg 119.1 kg 119.1 kg Weight/Height Weight 119.1 kg Height 5 ft 9 in General appearance: PRESENT: no acute distress, obese Head exam: PRESENT: atraumatic, normocephalic Eye exam: PRESENT: conjunctiva pink, EOMI, PERRLA. ABSENT: scleral icterus Ear exam: PRESENT: normal external ear exam Mouth exam: PRESENT: moist, tongue midline Respiratory exam: PRESENT: decreased breath sounds, rhonchi, symmetrical, unla bored Cardiovascular exam: PRESENT: RRR. ABSENT: diastolic murmur, rubs, systolic murmur GI/Abdominal exam: PRESENT: normal bowel sounds, soft. ABSENT: distended, guarding, mass, organolmegaly, rebound, tenderness Rectal exam: PRESENT: deferred Gentrourinary exam: PRESENT: indwelling catheter Extremities exam: PRESENT: full ROM, +2 edema. ABSENT: calf tenderness, clubbi ng, pedal edema Musculoskeletal exam: PRESENT: normal inspection Neurological exam: PRESENT: altered, awake Skin exam: PRESENT: abrasion Tubes/Lines: PRESENT: Endotracheal Tube, Central Line, Dialysis catheter, Nasogastic Tube Laboratory/Radiographs Laboratory Results: 02/27/20 04:10 02/27/20 04:10 02/27/20 02/27/20 02/27/20 04:10 04:10 05:40 WBC 13.1 H RBC 2.23 L Hgb 6.7 L Hct 19.6 L MCV 88 MCH 30.0 MCHC 34.2 RDW 15.4 H Plt Count 109 L Seg Neutrophils % Not Reportable Sodium 132.0 L Potassium 4.5 Chloride 96 L Carbon Dioxide 23 Anion Gap 13 BUN 107 H D Creatinine 4.44 H Est GFR ( Amer) 16 L Glucose 88 Calcium 6.7 L* Ionized Calcium Tessa 0.96 L Blood Type Antibody Screen 02/27/20 05:40 WBC RBC Hgb Hct MCV MCH MCHC RDW Plt Count Seg Neutrophils % Sodium Potassium Chloride Carbon Dioxide Anion Gap BUN Creatinine Est GFR ( Amer) Glucose Calcium Ionized Calcium Tessa Blood Type O POSITIVE Antibody Screen NEGATIVE 02/08/20 02/08/20 02/21/20 09:49 13:11 04:50 Troponin I 0.160 0.155 NT-Pro-B Natriuret Pep 5540 H 29392 H 02/26/20 05:35 Troponin I NT-Pro-B Natriuret Pep 49266 H Impressions: Hip/Pelvis X-Ray 02/08/20 00:00 IMPRESSION: No acute fracture. Severe degenerative changes of the left hip. Knee X-Ray 02/08/20 00:00 IMPRESSION: NEGATIVE STUDY OF THE RIGHT KNEE. NO RADIOGRAPHIC EVIDENCE OF ACUTE INJURY. Head CT 02/08/20 10:19 IMPRESSION: MILD CHRONIC CHANGES OF ATROPHY AND MICROVASCULAR ISCHEMIA. NO ACUTE PROCESS. EVIDENCE OF ACUTE STROKE: NO. Renal Ultrasound 02/21/20 00:00 IMPRESSION: Increased echogenicity of the renal parenchyma suggestive of underlying chronic medical renal disease. There is no hydronephrosis. There is a Ryan catheter within the urinary bladder. Chest X-Ray 02/27/20 00:00 IMPRESSION: Tip of the enteric tube is now in the proximal stomach. Other findings of the chest are stable copyright 2011 [employer]- All Rights Reserved All labs, radiographs, diagnostic studies and EKGs were personally reviewed: Yes In addition, reports of radiographic and diagnostic studies were read: Yes Assessment and Plan - Diagnosis (1) Acute respiratory failure due to COVID-19 Is this a current diagnosis for this admission?: Yes Plan: Certainly a factor in getting him extubated.There was a question about the ETT perhaps being above the cords as air needed to be placed in the instructor pilot balloon twice overnight. A glidescope laryngoscopy did not reveal a balloon herniation so more air was placed. (2) Tachypnea Is this a current diagnosis for this admission?: Yes Plan: This seems to be resolved (3) Acute on chronic diastolic CHF (congestive heart failure) Is this a current diagnosis for this admission?: Yes Plan: Not active (4) Coronary artery disease Qualifiers: Coronary Disease-Associated Artery/Lesion type: unspecified vessel or lesion type [place] vs. transplanted heart: [place] heart Associated angina: with unspecified angina Qualified Code(s): I25.119 - Atherosclerotic heart disease of [place] coronary artery with unspecified angina pectoris Is this a current diagnosis for this admission?: Yes Plan: Not active. (5) Elevated brain natriuretic peptide (BNP) level Is this a current diagnosis for this admission?: Yes Plan: Still going up despite I/O. Will give dose of lasix. BNP 46995 (6) MAKR (obstructive sleep apnea) Is this a current diagnosis for this admission?: Yes Plan: Not an issue with intubation. (7) Obesity (BMI 30-39.9) Is this a current diagnosis for this admission?: Yes Plan: This is a factor both in weaning and overall prognosis in COVID. (8) Stage III chronic kidney disease Is this a current diagnosis for this admission?: Yes Plan: He has been receiving HD intermittently. 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 (9) Anemia Qualifiers: Anemia type: iron deficiency Is this a current diagnosis for this admission?: Yes Plan: This is a consequence of inflammation, renal disease and probably a LGI bleed. Recieving a 2 unit transfusion now. Plan Summary: Try to wean ventilator as much as possible. Critical Time Critical Time (minutes): 40 Level of Care: ICU Anticipated discharge: SNF Anticipated DC Timeframe: Other -: 1. The care of a critical patient is a dynamic process. This note is a livestock sales representative synopsis but static in nature. The timeframe for treatments given in order is not necessarily the actual time these treatments may have been done. 2. This patient requires critical care secondary to ongoing requirements for therapy not offered or safe outside the critical care environment. Transfer to a lower level of care will result in altered life or limb morbidity and mortality. 3. Multidisciplinary rounds completed. 4. ABCDE bundle addressed.
[2020-02-27] MEDS ORDERED: CALCIUM GLUCONATE 1000 MG/10 ML INJ IV ONE (12:26)
[2020-02-27] MEDS ORDERED: FUROSEMIDE INJ/PF 40 MG/4 ML SDV IV ONE (12:27)
[2020-02-27] MEDS: CALCIUM GLUCONATE 1 GM/NS 50 ML RTU IV SCH ×4 (13:53→17:59)
[2020-02-27 17:09] LABS: HEMATOCRIT 27.1 % (37.9-51.0); MEAN CORPUSCULAR HEMOGLOBIN 30.1 pg (27.0-33.4); MEAN CORPUSCULAR HGB CONC 33.8 g/dL (32.0-36.0); MEAN CORPUSCULAR VOLUME 89 fl (80-97); PLATELET COUNT 112 10^3/uL (150-450); RED BLOOD COUNT 3.05 10^6/uL (4.35-5.55); RED CELL DISTRIBUTION WIDTH 15.2 % (11.5-14.0); WHITE BLOOD COUNT 14.8 10^3/uL (4.0-10.5)
[2020-02-27 17:11] LABS: HEMOGLOBIN 9.2 g/dL (13.5-17.0)
[2020-02-27] MEDS: ATORVASTATIN CALCIUM 40 MG TABLET NG SCH (21:09)
--- NOTE | 2020-02-27 22:39 | PDOC PROGRESS REPORT ---
Subjective Progress Note for:: 02/27/20 Subjective:: Patient still intubated and sedated. His hemoglobin went down again to 6.7 and is currently being transfused 2 units of packed RBC today. His stool has been noted to be black to dark brown and consideration would be a lower GI bleed which would need a colonoscopy. Since nothing was found causing active bleeding on EGD. He continues to be anuric unfortunately. Reason For Visit: WEAKNESS,ELEVATED TROPONIN,CHF Physical Exam Vital Signs: Temp Pulse Resp BP Pulse Ox 99.7 F 96 24 H 135/44 H 95 02/27/20 08:52 02/27/20 08:52 02/27/20 08:52 02/27/20 08:52 02/27/20 08:52 Pulse Oximeter Nocturnal Start: 02/08/20 13:55 Freq: RTQ4 Status: Complete Protocol: Document 02/09/20 04:00 LRO (Rec: 02/09/20 05:38 LRO [email or web address]) Nocturnal Pulse Oximetry Equipment Usage Equipment in Use Oxygen Delivery Method (includes room Room Air air) O2 Sat by Pulse Oximetry (92-100) 95 Continuous SpO2 Machine # 2 Pulse Oximeter Nocturnal Start: 02/10/20 11:39 Freq: RTQ4 Status: Complete Protocol: Document 02/11/20 04:06 PMU (Rec: 02/11/20 05:06 PMU [email or web address]) Nocturnal Pulse Oximetry Equipment Usage Equipment in Use Oxygen Delivery Method (includes room Room Air air) O2 Sat by Pulse Oximetry (92-100) 93 Continuous SpO2 Machine # N2 Intake & Output 02/26/20 02/27/20 02/28/20 06:59 06:59 06:59 Intake Total 760 3346 0 Output Total 95 3028 0 Balance 665 318 0 Weight 117.6 kg 119.1 kg Exam: Limited exam due to COVID-19 infection. General appearance: PRESENT: Intubated Head exam: PRESENT: atraumatic, normocephalic Eye exam: PRESENT: Closed Respiratory exam: PRESENT: Reportedly with coarse breath sounds. ABSENT: crackles, rales, rhonchi, unlabored, wheezes Cardiovascular exam: PRESENT: Regular rate rhythm -+S1, +S2. Tachycardic ABSENT: diastolic murmur, systolic murmur Extremities exam: Grade 2 bilateral lower extremity pitting edema Neurological exam: PRESENT: Sedated Skin exam: PRESENT: dry, warm, Cardiovascular exam: PRESENT: +S1, +S2 GI/Abdominal exam: PRESENT: normal bowel sounds, soft. ABSENT: organomegaly, tenderness Results Laboratory Results: 02/27/20 04:10 02/27/20 04:10 02/27/20 02/27/20 02/27/20 04:10 04:10 05:40 WBC 13.1 H RBC 2.23 L Hgb 6.7 L Hct 19.6 L MCV 88 MCH 30.0 MCHC 34.2 RDW 15.4 H Plt Count 109 L Seg Neutrophils % Not Reportable Sodium 132.0 L Potassium 4.5 Chloride 96 L Carbon Dioxide 23 Anion Gap 13 BUN 107 H D Creatinine 4.44 H Est GFR ( Amer) 16 L Glucose 88 Calcium 6.7 L* Ionized Calcium Tessa 0.96 L Blood Type Antibody Screen 02/27/20 05:40 WBC RBC Hgb Hct MCV MCH MCHC RDW Plt Count Seg Neutrophils % Sodium Potassium Chloride Carbon Dioxide Anion Gap BUN Creatinine Est GFR ( Amer) Glucose Calcium Ionized Calcium Tessa Blood Type O POSITIVE Antibody Screen NEGATIVE 02/08/20 02/08/20 02/21/20 09:49 13:11 04:50 Troponin I 0.160 0.155 NT-Pro-B Natriuret Pep 5540 H 98464 H 02/26/20 05:35 Troponin I NT-Pro-B Natriuret Pep 95301 H Impressions: Hip/Pelvis X-Ray 02/08/20 00:00 IMPRESSION: No acute fracture. Severe degenerative changes of the left hip. Knee X-Ray 02/08/20 00:00 IMPRESSION: NEGATIVE STUDY OF THE RIGHT KNEE. NO RADIOGRAPHIC EVIDENCE OF ACUTE INJURY. Head CT 02/08/20 10:19 IMPRESSION: MILD CHRONIC CHANGES OF ATROPHY AND MICROVASCULAR ISCHEMIA. NO ACUTE PROCESS. EVIDENCE OF ACUTE STROKE: NO. Renal Ultrasound 02/21/20 00:00 IMPRESSION: Increased echogenicity of the renal parenchyma suggestive of underlying chronic medical renal disease. There is no hydronephrosis. There is a Ryan catheter within the urinary bladder. Chest X-Ray 02/27/20 00:00 IMPRESSION: Tip of the enteric tube is now in the proximal stomach. Other findings of the chest are stable copyright 2011 [employer]- All Rights Reserved Assessment & Plan - Diagnosis (1) Acute kidney injury superimposed on chronic kidney disease Is this a current diagnosis for this admission?: Yes Plan: Patient is still oligo-anuric requiring renal replacement therapy. Plan for next dialysis tomorrow. (2) Acute respiratory failure due to COVID-19 Is this a current diagnosis for this admission?: Yes Plan: Per orchid worker. (3) Metabolic acidosis Is this a current diagnosis for this admission?: Yes Plan: Controlled on dialysis. (4) Hypocalcemia Is this a current diagnosis for this admission?: Yes Plan: Currently on calcitriol and vitamin D. Will adjust calcium bath on dialysis. (5) Hyperkalemia Is this a current diagnosis for this admission?: Yes Plan: Resolved. (6) Anemia Qualifiers: Anemia type: iron deficiency Is this a current diagnosis for this admission?: Yes Plan: Occult blood positive. Dr. Turner did an EGD which showed only gastric erosions without any evidence of active bleeding. Patient was also started on daily Retacrit by orchid worker service but is currently discontinued. Hemoglobin decreased again to 6.7, patient received 2 units packed RBC today. Consider colonoscopy. (7) Atrial fibrillation Qualifiers: Atrial fibrillation type: persistent (not longstanding) Qualified Code(s): I48.19 - Other persistent atrial fibrillation; I48.1 - Persistent atrial fibrillation Is this a current diagnosis for this admission?: Yes (8) COVID-19 virus infection Is this a current diagnosis for this admission?: Yes Plan: Due to hypervolemic state. (9) Hyponatremia Is this a current diagnosis for this admission?: Yes (10) MARK (obstructive sleep apnea) Is this a current diagnosis for this admission?: Yes - Time Time with patient: 15-25 minutes
[2020-02-28] MEDS: MORPHINE SULFATE 10 MG/ML INJ IV PRN ×2 (00:15→08:39)
[2020-02-28] MEDS ORDERED: HEPARIN SOD (PORCINE) 1,000 UNIT/ML 10 ML VIAL IV PRN (05:00)
[2020-02-28] MEDS ORDERED: EPOETIN ALFA-EPBX 20,000 UNIT in SYRINGE, DISPOSABLE, 1 EACH IV PRN (05:00)
[2020-02-28] MEDS ORDERED: NORMAL SALINE 1000 ML 1,000 ML IV PRN (05:00)
[2020-02-28] MEDS: DILTIAZEM HCL 90 MG TABLET PO SCH (05:47)
[2020-02-28 05:48] LABS: PHOSPHORUS 8.8 mg/dL (2.5-4.5)
[2020-02-28] MEDS: INSULIN LISPRO 100 UNIT/ML 3 ML VIAL SUBCUT SCH ×3 (05:48→17:04)
[2020-02-28 06:47] LABS: HEMATOCRIT 27.5 % (37.9-51.0); HEMOGLOBIN 9.3 g/dL (13.5-17.0); MEAN CORPUSCULAR HEMOGLOBIN 30.1 pg (27.0-33.4); MEAN CORPUSCULAR HGB CONC 33.8 g/dL (32.0-36.0); MEAN CORPUSCULAR VOLUME 89 fl (80-97); PLATELET COUNT 120 10^3/uL (150-450); RED BLOOD COUNT 3.09 10^6/uL (4.35-5.55); RED CELL DISTRIBUTION WIDTH 15.6 % (11.5-14.0); WHITE BLOOD COUNT 14.5 10^3/uL (4.0-10.5)
[2020-02-28 06:56] LABS: ANION GAP 15 (5-19); BLOOD UREA NITROGEN 126 mg/dL (7-20); CARBON DIOXIDE 20 mmol/L (22-30); CHLORIDE 94 mmol/L (98-107); GLUCOSE 109 mg/dL (75-110); POTASSIUM 4.8 mmol/L (3.6-5.0)
[2020-02-28 07:02] LABS: ALBUMIN 2.2 g/dL (3.5-5.0)
[2020-02-28 07:08] LABS: CALCIUM 5.9 mg/dL (8.4-10.2)
[2020-02-28 07:24] LABS: ABSOLUTE LYMPHOCYTES# (MANUAL) 0.4 10^3/uL (0.5-4.7); BASOPHILS % (MANUAL) 0 % (0-2); EOSINOPHILS % (MANUAL) 0 % (0-6); LYMPHOCYTES % (MANUAL) 2 % (13-45); MONOCYTES % (MANUAL) 0 % (3-13); SEGMENTED NEUTROPHILS % (MAN) 97 % (42-78); TOTAL CELLS COUNTED 100
[2020-02-28 07:25] LABS: ANISOCYTOSIS SLIGHT; POIKILOCYTOSIS SLIGHT; POLYCHROMASIA SLIGHT
[2020-02-28 07:26] LABS: OVALOCYTES SLIGHT; PLATELET COMMENT DECREASED; SCHISTOCYTES SLIGHT
[2020-02-28] MEDS: DEXMEDETOMIDINE IN 0.9 % NACL 400 MCG/100 ML RTUPB IV PRN ×3 (08:41→22:50)
[2020-02-28] MEDS: METOPROLOL TARTRATE PF/INJ 5 MG/5 ML SDV IV PRN (08:47)
[2020-02-28 08:56] LABS: HEMOGLOBIN 6.7 g/dL (13.5-17.0)
[2020-02-28] MEDS: SODIUM BICARBONATE 650 MG TABLET NG SCH ×2 (10:28→21:52)
[2020-02-28] MEDS: CHOLECALCIFEROL (D3) 1,000 UNIT (25 MCG) TABLET NG SCH (10:28)
[2020-02-28] MEDS: ASCORBIC ACID 500 MG TABLET NG SCH ×2 (10:28→17:03)
[2020-02-28] MEDS: ZINC SULFATE 220 MG CAPSULE NG SCH (10:28)
[2020-02-28] MEDS: ASPIRIN 81 MG TABLET, CHEWABLE NG SCH (10:28)
[2020-02-28] MEDS: AMINO AC/PROTEIN HYDR/WHEY PRO 11 GM/45 ML PKT NG SCH ×3 (10:28→17:03)
[2020-02-28] MEDS: LINEZOLID 600 MG/300 ML RTUPB IV SCH ×2 (10:29→22:10)
[2020-02-28] MEDS: PANTOPRAZOLE SODIUM 40 MG VIAL IV SCH (10:29)
[2020-02-28] MEDS: INSULIN GLARGINE,HUM.REC.ANLOG 1,000 UNIT/10 ML VIAL SUBCUT SCH (10:30)
[2020-02-28] MEDS: CALCITRIOL 1 MCG/ML ORAL SOLN 15 ML NG SCH (10:31)
[2020-02-28] MEDS: FLUTICASONE NASAL SPRAY 50 MCG/SPRY 120 SPRAY/16 GM NASL SCH ×2 (10:31→21:51)
--- NOTE | 2020-02-28 11:50 | PDOC PROGRESS REPORT ---
Subjective Progress Note for:: 02/28/20 Subjective:: I am seeing the patient during dialysis this morning. He continues to be intubated and sedated. Still anuric. He is a little tachycardic but otherwise tolerating dialysis. Nurses reports that the patient opens his eyes but not much response. Reason For Visit: WEAKNESS,ELEVATED TROPONIN,CHF Physical Exam Vital Signs: Temp Pulse Resp BP Pulse Ox 98.2 F 141 H 22 H 156/69 H 99 02/28/20 07:55 02/28/20 08:28 02/28/20 08:28 02/28/20 07:55 02/28/20 08:28 Pulse Oximeter Nocturnal Start: 02/08/20 13:55 Freq: RTQ4 Status: Complete Protocol: Document 02/09/20 04:00 LRO (Rec: 02/09/20 05:38 LRO [id number]) Nocturnal Pulse Oximetry Equipment Usage Equipment in Use Oxygen Delivery Method (includes room Room Air air) O2 Sat by Pulse Oximetry (92-100) 95 Continuous SpO2 Machine # 2 Pulse Oximeter Nocturnal Start: 02/10/20 11:39 Freq: RTQ4 Status: Complete Protocol: Document 02/11/20 04:06 PMU (Rec: 02/11/20 05:06 PMU [email or web address]) Nocturnal Pulse Oximetry Equipment Usage Equipment in Use Oxygen Delivery Method (includes room Room Air air) O2 Sat by Pulse Oximetry (92-100) 93 Continuous SpO2 Machine # N2 Intake & Output 02/27/20 02/28/20 02/29/20 06:59 06:59 06:59 Intake Total 3346 1853 0 Output Total 3028 43 0 Balance 318 1810 0 Weight 119.1 kg 117 kg Vitals during dialysis: Blood pressure 156/69, heart rate of 122, respiration of 20, FiO2 50% with oxygen saturation currently 99%. Exam: General appearance: PRESENT: Intubated and sedated Head exam: PRESENT: atraumatic, normocephalic Eye exam: PRESENT: Eyes mostly closed Respiratory exam: PRESENT: Reported to have coarse and diminished breath sounds. ABSENT: crackles, rales, rhonchi, unlabored, wheezes Cardiovascular exam: PRESENT: Regular rate rhythm -+S1, +S2. ABSENT: diastolic murmur, systolic murmur Extremities exam: Grade 2 bilateral lower extremity edema and bilateral upper extremity edema Neurological exam: PRESENT: Sedated. Skin exam: PRESENT: dry, warm, Cardiovascular exam: PRESENT: +S1, +S2 GI/Abdominal exam: PRESENT: normal bowel sounds, soft. ABSENT: organomegaly, tenderness Results Laboratory Results: 02/28/20 04:10 02/28/20 04:10 02/27/20 02/27/20 02/27/20 04:10 05:40 16:50 WBC 14.8 H RBC 3.05 L Hgb 6.7 L 9.2 L D Hct 27.1 L MCV 89 MCH 30.1 MCHC 33.8 RDW 15.2 H Plt Count 112 L Seg Neutrophils % Sodium Potassium Chloride Carbon Dioxide Anion Gap BUN Creatinine Est GFR ( Amer) Glucose Calcium Phosphorus Magnesium Albumin Blood Type O POSITIVE Antibody Screen NEGATIVE 02/28/20 02/28/20 02/28/20 04:10 04:10 04:10 WBC 14.5 H RBC 3.09 L Hgb 9.3 L Hct 27.5 L MCV 89 MCH 30.1 MCHC 33.8 RDW 15.6 H Plt Count 120 L Seg Neutrophils % Not Reportable Sodium 128.6 L Potassium 4.8 Chloride 94 L Carbon Dioxide 20 L Anion Gap 15 BUN 126 H Creatinine 5.27 H Est GFR ( Amer) 13 L Glucose 109 Calcium 5.9 L* Phosphorus 8.8 H Magnesium 2.1 Albumin 2.2 L Blood Type Antibody Screen 02/08/20 02/08/20 02/21/20 09:49 13:11 04:50 Troponin I 0.160 0.155 NT-Pro-B Natriuret Pep 5540 H 52842 H 02/26/20 05:35 Troponin I NT-Pro-B Natriuret Pep 14757 H Impressions: Hip/Pelvis X-Ray 02/08/20 00:00 IMPRESSION: No acute fracture. Severe degenerative changes of the left hip. Knee X-Ray 02/08/20 00:00 IMPRESSION: NEGATIVE STUDY OF THE RIGHT KNEE. NO RADIOGRAPHIC EVIDENCE OF ACUTE INJURY. Head CT 02/08/20 10:19 IMPRESSION: MILD CHRONIC CHANGES OF ATROPHY AND MICROVASCULAR ISCHEMIA. NO ACUTE PROCESS. EVIDENCE OF ACUTE STROKE: NO. Renal Ultrasound 02/21/20 00:00 IMPRESSION: Increased echogenicity of the renal parenchyma suggestive of underlying chronic medical renal disease. There is no hydronephrosis. There is a Ryan catheter within the urinary bladder. Chest X-Ray 02/27/20 00:00 IMPRESSION: Tip of the enteric tube is now in the proximal stomach. Other findings of the chest are stable copyright 2011 [employer]- All Rights Reserved Assessment & Plan - Diagnosis (1) Acute kidney injury superimposed on chronic kidney disease Is this a current diagnosis for this admission?: Yes Plan: Patient is still anuric requiring renal replacement therapy. We will do dialysis today for 3.5 hours, using the patient's dialysis catheter, with 3 calcium/2 potassium bath, blood flow rate of 300 mL per minute, dialysate flow rate of 800 mL per minute, ultrafiltration 3 to 3.5 L as tolerated, no heparin and Procrit with 20,000 units during dialysis intravenously. Patient is currently being monitored throughout dialysis treatment. We will continue to reevaluate and do renal replacement therapy as needed. (2) Acute respiratory failure due to COVID-19 Is this a current diagnosis for this admission?: Yes Plan: Per hourly associate. (3) Metabolic acidosis Is this a current diagnosis for this admission?: Yes Plan: Controlled on dialysis. (4) Hypocalcemia Is this a current diagnosis for this admission?: Yes Plan: Currently on calcitriol and vitamin D. Will adjust calcium bath on dialysis. Corrected calcium today 7.34. This is also due to hyperphosphatemia. (5) Hyperphosphatemia Is this a current diagnosis for this admission?: Yes Plan: Start calcium acetate to be given via tube feedings. (6) Hyperkalemia Is this a current diagnosis for this admission?: Yes Plan: Resolved. (7) Anemia Qualifiers: Anemia type: iron deficiency Is this a current diagnosis for this admission?: Yes Plan: Occult blood positive. Dr. Turner did an EGD which showed only gastric erosions without any evidence of active bleeding. Patient was also started on daily Retacrit by hourly associate service but is currently discontinued. Hemoglobin now at 9.3 after he received 2 units packed RBC yesterday. Consider colonoscopy. We will give Retacrit on dialysis. (8) Atrial fibrillation Qualifiers: Atrial fibrillation type: persistent (not longstanding) Qualified Code(s): I48.19 - Other persistent atrial fibrillation; I48.1 - Persistent atrial fibrillation Is this a current diagnosis for this admission?: Yes (9) COVID-19 virus infection Is this a current diagnosis for this admission?: Yes Plan: Due to hypervolemic state. (10) Hyponatremia Is this a current diagnosis for this admission?: Yes Plan: Hopefully ultrafiltration helps. (11) MARK (obstructive sleep apnea) Is this a current diagnosis for this admission?: Yes - Time Time with patient: 15-25 minutes
[2020-02-28] MEDS ORDERED: DILTIAZEM HCL 90 MG TABLET NG SCH (12:00)
[2020-02-28] MEDS: DILTIAZEM HCL 90 MG TABLET NG SCH ×2 (12:09→17:03)
[2020-02-28] MEDS: CALCIUM ACETATE 667 MG CAPSULE PO SCH ×2 (14:33→21:51)
[2020-02-28] MEDS ORDERED: CALCIUM GLUCONATE 1000 MG/10 ML INJ IV ONE (14:58)
--- NOTE | 2020-02-28 14:58 | PDOC CRITICAL CARE PROG REPORT ---
General Date:: 02/28/20 ICU Day:: 16 Ventilator Day:: 16 Hospital Day:: 20 Resuscitation Status: Full Code Events in the past 12 to 24 Hours:: Attempted weaning. Transfusion. Review of systems relevant to events:: Pulmonary, renal,GI Reason for ICU Addmission:: Acute respiratory distress and need for intubation - Medications: Medications reviewed and adjusted accordingly: Yes Vasopressors:: None Sedation:: Precedex. Physical Exam Vital Signs: Temp Pulse Resp BP Pulse Ox 100.2 F 105 H 25 H 127/60 H 100 02/28/20 14:26 02/28/20 14:00 02/28/20 14:26 02/28/20 14:26 02/28/20 14:26 Pulse Oximeter Nocturnal Start: 02/08/20 13:55 Freq: RTQ4 Status: Complete Protocol: Document 02/09/20 04:00 LRO (Rec: 02/09/20 05:38 LRO [id number]) Nocturnal Pulse Oximetry Equipment Usage Equipment in Use Oxygen Delivery Method (includes room Room Air air) O2 Sat by Pulse Oximetry (92-100) 95 Continuous SpO2 Machine # 2 Pulse Oximeter Nocturnal Start: 02/10/20 11:39 Freq: RTQ4 Status: Complete Protocol: Document 02/11/20 04:06 PMU (Rec: 02/11/20 05:06 PMU [email or web address]) Nocturnal Pulse Oximetry Equipment Usage Equipment in Use Oxygen Delivery Method (includes room Room Air air) O2 Sat by Pulse Oximetry (92-100) 93 Continuous SpO2 Machine # N2 Intake & Output 02/27/20 02/28/20 02/29/20 06:59 06:59 06:59 Intake Total 3346 2153 1290 Output Total 3028 43 5000 Balance 318 2110 -3710 Weight 119.1 kg 117 kg Weight/Height Weight 117 kg Height 5 ft 9 in General appearance: PRESENT: no acute distress, obese Head exam: PRESENT: atraumatic, normocephalic Eye exam: PRESENT: conjunctiva pink, EOMI, PERRLA. ABSENT: scleral icterus Ear exam: PRESENT: normal external ear exam Mouth exam: PRESENT: moist, tongue midline Respiratory exam: PRESENT: clear to auscultation kevyn, rhonchi. ABSENT: rales, wheezes Cardiovascular exam: PRESENT: RRR, tachycardia. ABSENT: diastolic murmur, rubs, systolic murmur GI/Abdominal exam: PRESENT: normal bowel sounds, soft. ABSENT: distended, guarding, mass, organolmegaly, rebound, tenderness Rectal exam: PRESENT: deferred Gentrourinary exam: PRESENT: indwelling catheter Extremities exam: PRESENT: full ROM, +1 edema. ABSENT: calf tenderness, clubbing, pedal edema Musculoskeletal exam: PRESENT: normal inspection Neurological exam: PRESENT: altered, CN II-XII grossly intact Skin exam: PRESENT: dry, intact, warm, other - Sacral decubitus, unstageable growing GNR.. ABSENT: cyanosis, rash Tubes/Lines: PRESENT: Endotracheal Tube, Central Line, Dialysis catheter, Nasogastic Tube Laboratory/Radiographs Laboratory Results: 02/28/20 04:10 02/28/20 04:10 02/27/20 02/27/20 02/28/20 04:10 16:50 04:10 WBC 14.8 H RBC 3.05 L Hgb 6.7 L 9.2 L D Hct 27.1 L MCV 89 MCH 30.1 MCHC 33.8 RDW 15.2 H Plt Count 112 L Seg Neutrophils % Sodium Potassium Chloride Carbon Dioxide Anion Gap BUN Creatinine Est GFR ( Amer) Glucose Calcium Phosphorus 8.8 H Magnesium 2.1 Albumin 02/28/20 02/28/20 04:10 04:10 WBC 14.5 H RBC 3.09 L Hgb 9.3 L Hct 27.5 L MCV 89 MCH 30.1 MCHC 33.8 RDW 15.6 H Plt Count 120 L Seg Neutrophils % Not Reportable Sodium 128.6 L Potassium 4.8 Chloride 94 L Carbon Dioxide 20 L Anion Gap 15 BUN 126 H Creatinine 5.27 H Est GFR ( Amer) 13 L Glucose 109 Calcium 5.9 L* Phosphorus Magnesium Albumin 2.2 L 02/08/20 02/08/20 02/21/20 09:49 13:11 04:50 Troponin I 0.160 0.155 NT-Pro-B Natriuret Pep 5540 H 16849 H 02/26/20 05:35 Troponin I NT-Pro-B Natriuret Pep 74887 H Impressions: Hip/Pelvis X-Ray 02/08/20 00:00 IMPRESSION: No acute fracture. Severe degenerative changes of the left hip. Knee X-Ray 02/08/20 00:00 IMPRESSION: NEGATIVE STUDY OF THE RIGHT KNEE. NO RADIOGRAPHIC EVIDENCE OF ACUTE INJURY. Head CT 02/08/20 10:19 IMPRESSION: MILD CHRONIC CHANGES OF ATROPHY AND MICROVASCULAR ISCHEMIA. NO ACUTE PROCESS. EVIDENCE OF ACUTE STROKE: NO. Renal Ultrasound 02/21/20 00:00 IMPRESSION: Increased echogenicity of the renal parenchyma suggestive of underlying chronic medical renal disease. There is no hydronephrosis. There is a Ryan catheter within the urinary bladder. Chest X-Ray 02/27/20 00:00 IMPRESSION: Tip of the enteric tube is now in the proximal stomach. Other findings of the chest are stable copyright 2011 [employer]- All Rights Reserved All labs, radiographs, diagnostic studies and EKGs were personally reviewed: Yes In addition, reports of radiographic and diagnostic studies were read: Yes Assessment and Plan - Diagnosis (1) Acute respiratory failure due to COVID-19 Is this a current diagnosis for this admission?: Yes Plan: He has still tested positive. (2) Tachypnea Is this a current diagnosis for this admission?: Yes Plan: When weaning he became tachypnic after a while of PSV. (3) Acute on chronic diastolic CHF (congestive heart failure) Is this a current diagnosis for this admission?: Yes Plan: He has not responded well to lasix. Received HD today. (4) Coronary artery disease Qualifiers: Coronary Disease-Associated Artery/Lesion type: unspecified vessel or lesion type [place] vs. transplanted heart: [place] heart Associated angina: with unspecified angina Qualified Code(s): I25.119 - Atherosclerotic heart disease of [place] coronary artery with unspecified angina pectoris Is this a current diagnosis for this admission?: Yes Plan: Inactive (5) Elevated brain natriuretic peptide (BNP) level Is this a current diagnosis for this admission?: Yes Plan: Has not been rechecked. Recheck in AM (6) MARK (obstructive sleep apnea) Is this a current diagnosis for this admission?: Yes (7) Obesity (BMI 30-39.9) Is this a current diagnosis for this admission?: Yes Plan: Chronic (8) Anemia Qualifiers: Anemia type: iron deficiency Is this a current diagnosis for this admission?: Yes Plan: His H/H is improved fro now with transfusions. (9) CKD (chronic kidney disease) stage 5, GFR less than 15 ml/min Is this a current diagnosis for this admission?: Yes Plan: Now on HD. (10) Hypocalcemia Is this a current diagnosis for this admission?: Yes Plan: His level still remains low and will need replacement Plan Summary: Try to wean vent if possible. Critical Time Critical Time (minutes): 35 Level of Care: ICU Anticipated discharge: SNF Anticipated DC Timeframe: Other -: 1. The care of a critical patient is a dynamic process. This note is a sales representative consultant synopsis but static in nature. The timeframe for treatments given in order is not necessarily the actual time these treatments may have been done. 2. This patient requires critical care secondary to ongoing requirements for therapy not offered or safe outside the critical care environment. Transfer to a lower level of care will result in altered life or limb morbidity and mortality. 3. Multidisciplinary rounds completed. 4. ABCDE bundle addressed.
[2020-02-28] MEDS: CALCIUM GLUCONATE 1 GM/NS 50 ML RTU IV SCH ×4 (17:03→20:25)
[2020-02-28] MEDS: ATORVASTATIN CALCIUM 40 MG TABLET NG SCH (21:51)
[2020-02-29] MEDS: DILTIAZEM HCL 90 MG TABLET NG SCH ×5 (00:55→23:51)
[2020-02-29] MEDS: INSULIN LISPRO 100 UNIT/ML 3 ML VIAL SUBCUT SCH ×5 (00:55→23:51)
[2020-02-29 05:04] LABS: HEMATOCRIT 26.5 % (37.9-51.0); HEMOGLOBIN 9.1 g/dL (13.5-17.0); MEAN CORPUSCULAR HEMOGLOBIN 30.8 pg (27.0-33.4); MEAN CORPUSCULAR HGB CONC 34.4 g/dL (32.0-36.0); MEAN CORPUSCULAR VOLUME 90 fl (80-97); PLATELET COUNT 125 10^3/uL (150-450); RED BLOOD COUNT 2.96 10^6/uL (4.35-5.55); RED CELL DISTRIBUTION WIDTH 15.7 % (11.5-14.0); WHITE BLOOD COUNT 12.9 10^3/uL (4.0-10.5)
[2020-02-29 05:15] LABS: ANION GAP 17 (5-19); BLOOD UREA NITROGEN 89 mg/dL (7-20); CARBON DIOXIDE 20 mmol/L (22-30); CHLORIDE 95 mmol/L (98-107); GLUCOSE 98 mg/dL (75-110); POTASSIUM 4.2 mmol/L (3.6-5.0)
[2020-02-29 05:24] LABS: ABSOLUTE LYMPHOCYTES# (MANUAL) 0.4 10^3/uL (0.5-4.7); ABSOLUTE MONOCYTES # (MANUAL) 0.3 10^3/uL (0.1-1.4); BASOPHILS % (MANUAL) 0 % (0-2); EOSINOPHILS % (MANUAL) 0 % (0-6); HYPERSEGMENTED NEUTROPHILS PRESENT; LYMPHOCYTES % (MANUAL) 3 % (13-45); MONOCYTES % (MANUAL) 2 % (3-13); PLATELET COMMENT DECREASED; SEGMENTED NEUTROPHILS % (MAN) 95 % (42-78); TOTAL CELLS COUNTED 100
[2020-02-29 05:26] LABS: POLYCHROMASIA SLIGHT
[2020-02-29 05:28] LABS: ANISOCYTOSIS 1+; OVALOCYTES SLIGHT; SCHISTOCYTES SLIGHT
[2020-02-29 05:30] LABS: POIKILOCYTOSIS SLIGHT
[2020-02-29] MEDS: DEXMEDETOMIDINE IN 0.9 % NACL 400 MCG/100 ML RTUPB IV PRN ×2 (05:30→18:40)
[2020-02-29] MEDS: CALCIUM ACETATE 667 MG CAPSULE PO SCH ×3 (05:33→22:06)
[2020-02-29 05:36] LABS: CALCIUM 6.4 mg/dL (8.4-10.2)
[2020-02-29] MEDS ORDERED: CALCIUM GLUCONATE 1000 MG/10 ML INJ IV ONE (08:42)
--- NOTE | 2020-02-29 08:42 | PDOC CRITICAL CARE PROG REPORT ---
General Date:: 02/29/20 ICU Day:: 16 Ventilator Day:: 16 Hospital Day:: 21 Resuscitation Status: Full Code Events in the past 12 to 24 Hours:: Seems to a bit more awake. Review of systems relevant to events:: Pulmonary, renal, CV Reason for ICU Addmission:: Acute respiratory distress and need for intubation - Medications: Medications reviewed and adjusted accordingly: Yes Vasopressors:: None Sedation:: Precedex Physical Exam Vital Signs: Temp Pulse Resp BP Pulse Ox 99.9 F 105 H 22 H 148/52 H 100 02/29/20 08:00 02/29/20 08:00 02/29/20 08:00 02/29/20 08:00 02/29/20 08:00 Pulse Oximeter Nocturnal Start: 02/08/20 13:55 Freq: RTQ4 Status: Complete Protocol: Document 02/09/20 04:00 LRO (Rec: 02/09/20 05:38 LRO [email or web address]) Nocturnal Pulse Oximetry Equipment Usage Equipment in Use Oxygen Delivery Method (includes room Room Air air) O2 Sat by Pulse Oximetry (92-100) 95 Continuous SpO2 Machine # 2 Pulse Oximeter Nocturnal Start: 02/10/20 11:39 Freq: RTQ4 Status: Complete Protocol: Document 02/11/20 04:06 PMU (Rec: 02/11/20 05:06 PMU [email or web address]) Nocturnal Pulse Oximetry Equipment Usage Equipment in Use Oxygen Delivery Method (includes room Room Air air) O2 Sat by Pulse Oximetry (92-100) 93 Continuous SpO2 Machine # N2 Intake & Output 02/28/20 02/29/20 03/01/20 06:59 06:59 06:59 Intake Total 2153 2321 Output Total 43 5355 0 Balance 2110 -3034 0 Weight 117 kg 115.8 kg Weight/Height Weight 115.8 kg Height 5 ft 9 in General appearance: PRESENT: no acute distress, obese Head exam: PRESENT: atraumatic, normocephalic Eye exam: PRESENT: conjunctiva pink, EOMI, PERRLA. ABSENT: scleral icterus Ear exam: PRESENT: normal external ear exam Mouth exam: PRESENT: moist, tongue midline Respiratory exam: PRESENT: clear to auscultation kevyn, rhonchi. ABSENT: rales, wheezes Cardiovascular exam: PRESENT: RRR, tachycardia. ABSENT: diastolic murmur, rubs, systolic murmur GI/Abdominal exam: PRESENT: normal bowel sounds, soft. ABSENT: distended, guarding, mass, organolmegaly, rebound, tenderness Rectal exam: PRESENT: deferred Extremities exam: PRESENT: +2 edema, other - Anasarca all 4 extremities Neurological exam: PRESENT: CN II-XII grossly intact, other - Opens eyes at times spontaneously and to voice. Skin exam: PRESENT: other - Decubitus on sacrum. Tubes/Lines: PRESENT: Endotracheal Tube, Central Line, Nasogastic Tube Laboratory/Radiographs Laboratory Results: 02/29/20 04:40 02/29/20 04:40 02/27/20 02/29/20 02/29/20 04:10 04:40 04:40 WBC RBC Hgb 6.7 L Hct MCV MCH MCHC RDW Plt Count Seg Neutrophils % Sodium 131.5 L Potassium 4.2 Chloride 95 L Carbon Dioxide 20 L Anion Gap 17 BUN 89 H Creatinine 3.60 H Est GFR ( Amer) 20 L Glucose 98 Calcium 6.4 L* Ionized Calcium Tessa 1.00 L 02/29/20 04:40 WBC 12.9 H RBC 2.96 L Hgb 9.1 L Hct 26.5 L MCV 90 MCH 30.8 MCHC 34.4 RDW 15.7 H Plt Count 125 L Seg Neutrophils % Not Reportable Sodium Potassium Chloride Carbon Dioxide Anion Gap BUN Creatinine Est GFR ( Amer) Glucose Calcium Ionized Calcium Tessa 02/08/20 02/08/20 02/21/20 09:49 13:11 04:50 Troponin I 0.160 0.155 NT-Pro-B Natriuret Pep 5540 H 30910 H 02/26/20 05:35 Troponin I NT-Pro-B Natriuret Pep 03859 H Impressions: Hip/Pelvis X-Ray 02/08/20 00:00 IMPRESSION: No acute fracture. Severe degenerative changes of the left hip. Knee X-Ray 02/08/20 00:00 IMPRESSION: NEGATIVE STUDY OF THE RIGHT KNEE. NO RADIOGRAPHIC EVIDENCE OF ACUTE INJURY. Head CT 02/08/20 10:19 IMPRESSION: MILD CHRONIC CHANGES OF ATROPHY AND MICROVASCULAR ISCHEMIA. NO ACUTE PROCESS. EVIDENCE OF ACUTE STROKE: NO. Renal Ultrasound 02/21/20 00:00 IMPRESSION: Increased echogenicity of the renal parenchyma suggestive of underlying chronic medical renal disease. There is no hydronephrosis. There is a Ryan catheter within the urinary bladder. Chest X-Ray 02/27/20 00:00 IMPRESSION: Tip of the enteric tube is now in the proximal stomach. Other findings of the chest are stable copyright 2011 [employer]- All Rights Reserved All labs, radiographs, diagnostic studies and EKGs were personally reviewed: Yes In addition, reports of radiographic and diagnostic studies were read: Yes Assessment and Plan - Diagnosis (1) Acute respiratory failure due to COVID-19 Is this a current diagnosis for this admission?: Yes Plan: Still a fasctor. (2) Tachypnea Is this a current diagnosis for this admission?: Yes Plan: This has abated some and will try weaning again. (3) Acute on chronic diastolic CHF (congestive heart failure) Is this a current diagnosis for this admission?: Yes Plan: Not active. (4) Coronary artery disease Qualifiers: Coronary Disease-Associated Artery/Lesion type: unspecified vessel or lesion type [place] vs. transplanted heart: [place] heart Associated angina: with unspecified angina Qualified Code(s): I25.119 - Atherosclerotic heart disease of [place] coronary artery with unspecified angina pectoris Is this a current diagnosis for this admission?: Yes Plan: Not active. (5) Elevated brain natriuretic peptide (BNP) level Is this a current diagnosis for this admission?: Yes (6) MARK (obstructive sleep apnea) Is this a current diagnosis for this admission?: Yes (7) Obesity (BMI 30-39.9) Is this a current diagnosis for this admission?: Yes Plan: Chronic (8) Anemia Qualifiers: Anemia type: iron deficiency Is this a current diagnosis for this admission?: Yes Plan: Hgb 9.1 now. (9) CKD (chronic kidney disease) stage 5, GFR less than 15 ml/min Is this a current diagnosis for this admission?: Yes Plan: Received HD yesterday not in need today. (10) Hypocalcemia Is this a current diagnosis for this admission?: Yes Plan: His ionized is still lox. He will need 4gms more. Plan Summary: Will try PSV again today. Critical Time Critical Time (minutes): 35 Level of Care: ICU Anticipated discharge: SNF Anticipated DC Timeframe: Other -: 1. The care of a critical patient is a dynamic process. This note is a franchise sales representative synopsis but static in nature. The timeframe for treatments given in order is not necessarily the actual time these treatments may have been done. 2. This patient requires critical care secondary to ongoing requirements for therapy not offered or safe outside the critical care environment. Transfer to a lower level of care will result in altered life or limb morbidity and mortality. 3. Multidisciplinary rounds completed. 4. ABCDE bundle addressed.
[2020-02-29] MEDS: MORPHINE SULFATE 10 MG/ML INJ IV PRN (09:28)
[2020-02-29] MEDS: CALCIUM GLUCONATE 1 GM/NS 50 ML RTU IV SCH ×4 (09:53→14:45)
[2020-02-29] MEDS: ASPIRIN 81 MG TABLET, CHEWABLE NG SCH (09:54)
[2020-02-29] MEDS: PANTOPRAZOLE SODIUM 40 MG VIAL IV SCH (09:54)
[2020-02-29] MEDS: CHOLECALCIFEROL (D3) 1,000 UNIT (25 MCG) TABLET NG SCH (09:54)
[2020-02-29] MEDS: ACETAMINOPHEN SOLN 325 MG/10.15 ML UDCUP NG PRN (09:55)
[2020-02-29] MEDS: ASCORBIC ACID 500 MG TABLET NG SCH ×2 (09:55→18:41)
[2020-02-29] MEDS: SODIUM BICARBONATE 650 MG TABLET NG SCH ×2 (09:55→22:07)
[2020-02-29] MEDS: FLUTICASONE NASAL SPRAY 50 MCG/SPRY 120 SPRAY/16 GM NASL SCH ×2 (09:56→22:06)
[2020-02-29] MEDS: CALCITRIOL 1 MCG/ML ORAL SOLN 15 ML NG SCH (09:56)
[2020-02-29] MEDS: ZINC SULFATE 220 MG CAPSULE NG SCH (09:56)
[2020-02-29] MEDS: AMINO AC/PROTEIN HYDR/WHEY PRO 11 GM/45 ML PKT NG SCH ×3 (10:13→18:41)
[2020-02-29] MEDS: INSULIN GLARGINE,HUM.REC.ANLOG 1,000 UNIT/10 ML VIAL SUBCUT SCH (10:14)
[2020-02-29] MEDS: LINEZOLID 600 MG/300 ML RTUPB IV SCH ×2 (10:14→22:06)
[2020-02-29 14:20] LABS: PLATELET COUNT 125 10^3/uL (150-450)
[2020-02-29 14:30] LABS: INTERNATIONAL RATION (INR) 1.08; PROTHROMBIN TIME 14.2 SEC (11.4-15.4)
[2020-02-29 14:31] LABS: FIBRINOGEN 787 mg/dL (209-497)
[2020-02-29] MEDS: METOPROLOL TARTRATE PF/INJ 5 MG/5 ML SDV IV PRN (22:07)
[2020-02-29] MEDS: ATORVASTATIN CALCIUM 40 MG TABLET NG SCH (22:07)
[2020-03-01 04:09] LABS: HEMATOCRIT 26.4 % (37.9-51.0); MEAN CORPUSCULAR HEMOGLOBIN 30.7 pg (27.0-33.4); MEAN CORPUSCULAR VOLUME 90 fl (80-97); PLATELET COUNT 145 10^3/uL (150-450); RED BLOOD COUNT 2.92 10^6/uL (4.35-5.55); RED CELL DISTRIBUTION WIDTH 15.5 % (11.5-14.0); WHITE BLOOD COUNT 12.7 10^3/uL (4.0-10.5)
[2020-03-01 04:28] LABS: ANION GAP 16 (5-19); CARBON DIOXIDE 21 mmol/L (22-30); CHLORIDE 92 mmol/L (98-107); GLUCOSE 100 mg/dL (75-110); POTASSIUM 4.4 mmol/L (3.6-5.0)
[2020-03-01 04:57] LABS: ABSOLUTE LYMPHOCYTES# (MANUAL) 0.4 10^3/uL (0.5-4.7); ABSOLUTE MONOCYTES # (MANUAL) 0.1 10^3/uL (0.1-1.4); BASOPHILS % (MANUAL) 0 % (0-2); EOSINOPHILS % (MANUAL) 0 % (0-6); LYMPHOCYTES % (MANUAL) 3 % (13-45); MONOCYTES % (MANUAL) 1 % (3-13); SEGMENTED NEUTROPHILS % (MAN) 96 % (42-78); TOTAL CELLS COUNTED 100
[2020-03-01 04:58] LABS: ANISOCYTOSIS SLIGHT
[2020-03-01 04:59] LABS: PLATELET COMMENT DECREASED; POLYCHROMASIA SLIGHT
[2020-03-01 05:00] LABS: SCHISTOCYTES SLIGHT
[2020-03-01 05:01] LABS: OVALOCYTES SLIGHT
[2020-03-01 05:03] LABS: POIKILOCYTOSIS SLIGHT
[2020-03-01 05:06] LABS: BLOOD UREA NITROGEN 113 mg/dL (7-20)
[2020-03-01 05:07] LABS: CALCIUM 6.4 mg/dL (8.4-10.2)
[2020-03-01] MEDS: INSULIN LISPRO 100 UNIT/ML 3 ML VIAL SUBCUT SCH ×3 (05:23→17:22)
[2020-03-01] MEDS: METOPROLOL TARTRATE PF/INJ 5 MG/5 ML SDV IV PRN (06:38)
[2020-03-01] MEDS: CALCIUM ACETATE 667 MG CAPSULE PO SCH ×3 (06:39→22:11)
[2020-03-01] MEDS: DILTIAZEM HCL 90 MG TABLET NG SCH ×4 (06:39→23:26)
--- NOTE | 2020-03-01 08:05 | PDOC CRITICAL CARE PROG REPORT ---
General Date:: 03/01/20 ICU Day:: 18 Ventilator Day:: 18 Hospital Day:: 22 Resuscitation Status: Full Code Events in the past 12 to 24 Hours:: Able to be weaned to PSV and tolerated it. Review of systems relevant to events:: Pulmonary, renal. Reason for ICU Addmission:: Acute respiratory distress and need for intubation - Medications: Medications reviewed and adjusted accordingly: Yes Vasopressors:: None Sedation:: Precedex. Physical Exam Vital Signs: Temp Pulse Resp BP Pulse Ox 100.0 F 107 H 28 H 160/72 H 96 03/01/20 06:00 02/29/20 19:43 03/01/20 06:45 03/01/20 06:45 03/01/20 06:45 Pulse Oximeter Nocturnal Start: 02/08/20 13:55 Freq: RTQ4 Status: Complete Protocol: Document 02/09/20 04:00 LRO (Rec: 02/09/20 05:38 LRO [id number]) Nocturnal Pulse Oximetry Equipment Usage Equipment in Use Oxygen Delivery Method (includes room Room Air air) O2 Sat by Pulse Oximetry (92-100) 95 Continuous SpO2 Machine # 2 Pulse Oximeter Nocturnal Start: 02/10/20 11:39 Freq: RTQ4 Status: Complete Protocol: Document 02/11/20 04:06 PMU (Rec: 02/11/20 05:06 PMU [email or web address]) Nocturnal Pulse Oximetry Equipment Usage Equipment in Use Oxygen Delivery Method (includes room Room Air air) O2 Sat by Pulse Oximetry (92-100) 93 Continuous SpO2 Machine # N2 Intake & Output 02/29/20 03/01/20 03/02/20 06:59 06:59 06:59 Intake Total 2343 1448 Output Total 5355 600 Balance -3012 848 Weight 115.8 kg 116.1 kg Weight/Height Weight 116.1 kg Height 5 ft 9 in General appearance: PRESENT: no acute distress, obese Head exam: PRESENT: atraumatic Eye exam: PRESENT: conjunctiva pink, EOMI, PERRLA. ABSENT: scleral icterus Ear exam: PRESENT: normal external ear exam Mouth exam: PRESENT: moist, tongue midline Respiratory exam: PRESENT: clear to auscultation kevyn, decreased breath sounds, rhonchi. ABSENT: rales, wheezes Cardiovascular exam: PRESENT: RRR, tachycardia. ABSENT: diastolic murmur, rubs, systolic murmur GI/Abdominal exam: PRESENT: normal bowel sounds, soft. ABSENT: distended, guarding, mass, organolmegaly, rebound, tenderness Rectal exam: PRESENT: deferred Extremities exam: PRESENT: +2 edema, other - Edema of all 4 extremities. Neurological exam: PRESENT: altered, other - Sedated. Skin exam: PRESENT: other - Sacral decubitus inspected. It is large about 8cm. Superficial with no deep component. GNR growing. Unstagable and present on ICU a dmission. Tubes/Lines: PRESENT: Endotracheal Tube, Dialysis catheter, Nasogastic Tube Laboratory/Radiographs Laboratory Results: 03/01/20 03:15 03/01/20 03:15 02/29/20 03/01/20 03/01/20 14:15 03:15 03:15 WBC 12.7 H RBC 2.92 L Hgb 9.0 L Hct 26.4 L MCV 90 MCH 30.7 MCHC 34.0 RDW 15.5 H Plt Count 125 L 145 L Seg Neutrophils % Not Reportable Sodium 129.3 L Potassium 4.4 Chloride 92 L Carbon Dioxide 21 L Anion Gap 16 BUN 113 H D Creatinine 3.86 H Est GFR ( Amer) 19 L Glucose 100 Calcium 6.4 L* Magnesium 2.0 02/08/20 02/08/20 02/21/20 09:49 13:11 04:50 Troponin I 0.160 0.155 NT-Pro-B Natriuret Pep 5540 H 80726 H 02/26/20 05:35 Troponin I NT-Pro-B Natriuret Pep 42563 H Impressions: Hip/Pelvis X-Ray 02/08/20 00:00 IMPRESSION: No acute fracture. Severe degenerative changes of the left hip. Knee X-Ray 02/08/20 00:00 IMPRESSION: NEGATIVE STUDY OF THE RIGHT KNEE. NO RADIOGRAPHIC EVIDENCE OF ACUTE INJURY. Head CT 02/08/20 10:19 IMPRESSION: MILD CHRONIC CHANGES OF ATROPHY AND MICROVASCULAR ISCHEMIA. NO ACUTE PROCESS. EVIDENCE OF ACUTE STROKE: NO. Renal Ultrasound 02/21/20 00:00 IMPRESSION: Increased echogenicity of the renal parenchyma suggestive of underlying chronic medical renal disease. There is no hydronephrosis. There is a Ryan catheter within the urinary bladder. Chest X-Ray 02/27/20 00:00 IMPRESSION: Tip of the enteric tube is now in the proximal stomach. Other findings of the chest are stable copyright 2011 [employer]- All Rights Reserved All labs, radiographs, diagnostic studies and EKGs were personally reviewed: Yes In addition, reports of radiographic and diagnostic studies were read: Yes Assessment and Plan - Diagnosis (1) Acute respiratory failure due to COVID-19 Is this a current diagnosis for this admission?: Yes Plan: No change. Will retest after 1 week. (2) Tachypnea Is this a current diagnosis for this admission?: Yes Plan: This has slowed down considerably. (3) Acute on chronic diastolic CHF (congestive heart failure) Is this a current diagnosis for this admission?: Yes Plan: This does not seem to be active for several days. It will be best treated by HD as Lasix produces no result. (4) Coronary artery disease Qualifiers: Coronary Disease-Associated Artery/Lesion type: unspecified vessel or lesion type [place] vs. transplanted heart: [place] heart Associated angina: with unspecified angina Qualified Code(s): I25.119 - Atherosclerotic heart disease of [place] coronary artery with unspecified angina pectoris Is this a current diagnosis for this admission?: Yes Plan: Inactive. (5) Elevated brain natriuretic peptide (BNP) level Is this a current diagnosis for this admission?: Yes Plan: Follow trend (6) MARK (obstructive sleep apnea) Is this a current diagnosis for this admission?: Yes (7) Obesity (BMI 30-39.9) Is this a current diagnosis for this admission?: Yes Plan: He'll need CPAP when extubated. (8) Anemia Qualifiers: Anemia type: iron deficiency Is this a current diagnosis for this admission?: Yes Plan: H/H stable, no further evidence of bleeding. (9) CKD (chronic kidney disease) stage 5, GFR less than 15 ml/min Is this a current diagnosis for this admission?: Yes Plan: HD on scheduled basis. (10) Hypocalcemia Is this a current diagnosis for this admission?: Yes Plan: Give more boluses. Plan Summary: He has tolerated PSV. Try to get him more awake today. Critical Time Critical Time (minutes): 35 Level of Care: ICU Anticipated discharge: SNF Anticipated DC Timeframe: Other -: 1. The care of a critical patient is a dynamic process. This note is a underwriting account representative synopsis but static in nature. The timeframe for treatments given in order is not necessarily the actual time these treatments may have been done. 2. This patient requires critical care secondary to ongoing requirements for therapy not offered or safe outside the critical care environment. Transfer to a lower level of care will result in altered life or limb morbidity and mortality. 3. Multidisciplinary rounds completed. 4. ABCDE bundle addressed.
[2020-03-01] MEDS ORDERED: CALCIUM GLUCONATE 1000 MG/10 ML INJ IV ONE (08:06)
[2020-03-01] MEDS: CALCIUM GLUCONATE 1 GM/NS 50 ML RTU IV SCH ×4 (09:43→13:00)
[2020-03-01] MEDS: ASCORBIC ACID 500 MG TABLET NG SCH ×2 (09:44→17:23)
[2020-03-01] MEDS: ZINC SULFATE 220 MG CAPSULE NG SCH (09:44)
[2020-03-01] MEDS: PANTOPRAZOLE SODIUM 40 MG VIAL IV SCH (09:44)
[2020-03-01] MEDS: AMINO AC/PROTEIN HYDR/WHEY PRO 11 GM/45 ML PKT NG SCH ×3 (09:45→17:22)
[2020-03-01] MEDS: SODIUM BICARBONATE 650 MG TABLET NG SCH ×2 (09:45→22:11)
[2020-03-01] MEDS: ASPIRIN 81 MG TABLET, CHEWABLE NG SCH (09:45)
[2020-03-01] MEDS: CHOLECALCIFEROL (D3) 1,000 UNIT (25 MCG) TABLET NG SCH (09:45)
[2020-03-01] MEDS: FLUTICASONE NASAL SPRAY 50 MCG/SPRY 120 SPRAY/16 GM NASL SCH ×2 (09:47→22:10)
[2020-03-01] MEDS: INSULIN GLARGINE,HUM.REC.ANLOG 1,000 UNIT/10 ML VIAL SUBCUT SCH (09:48)
[2020-03-01] MEDS: CALCITRIOL 1 MCG/ML ORAL SOLN 15 ML NG SCH (09:49)
[2020-03-01] MEDS: LINEZOLID 600 MG/300 ML RTUPB IV SCH ×2 (10:00→22:11)
[2020-03-01] MEDS: ATORVASTATIN CALCIUM 40 MG TABLET NG SCH (22:11)
[2020-03-02] MEDS ORDERED: NORMAL SALINE 1000 ML 1,000 ML IV PRN (05:00)
[2020-03-02] MEDS ORDERED: EPOETIN ALFA-EPBX 20,000 UNIT in SYRINGE, DISPOSABLE, 1 EACH IV PRN (05:00)
[2020-03-02] MEDS ORDERED: HEPARIN SOD (PORCINE) 1,000 UNIT/ML 10 ML VIAL IV PRN ×2 (05:00→15:15)
[2020-03-02 05:19] LABS: GLUCOSE 104 mg/dL (75-110); POTASSIUM 4.6 mmol/L (3.6-5.0)
[2020-03-02] MEDS: CALCIUM ACETATE 667 MG CAPSULE PO SCH ×3 (05:19→21:40)
[2020-03-02] MEDS: DILTIAZEM HCL 90 MG TABLET NG SCH ×4 (05:19→23:37)
[2020-03-02] MEDS: INSULIN LISPRO 100 UNIT/ML 3 ML VIAL SUBCUT SCH ×5 (05:21→23:37)
[2020-03-02 05:22] LABS: HEMATOCRIT 26.7 % (37.9-51.0); HEMOGLOBIN 9.3 g/dL (13.5-17.0); MEAN CORPUSCULAR HEMOGLOBIN 31.4 pg (27.0-33.4); MEAN CORPUSCULAR HGB CONC 34.7 g/dL (32.0-36.0); MEAN CORPUSCULAR VOLUME 90 fl (80-97); PLATELET COUNT 152 10^3/uL (150-450); RED BLOOD COUNT 2.95 10^6/uL (4.35-5.55); RED CELL DISTRIBUTION WIDTH 16.2 % (11.5-14.0); WHITE BLOOD COUNT 10.9 10^3/uL (4.0-10.5)
[2020-03-02 05:25] LABS: CARBON DIOXIDE 17 mmol/L (22-30); CHLORIDE 91 mmol/L (98-107)
[2020-03-02 05:41] LABS: ABSOLUTE LYMPHOCYTES# (MANUAL) 0.2 10^3/uL (0.5-4.7); ABSOLUTE MONOCYTES # (MANUAL) 0.1 10^3/uL (0.1-1.4); BASOPHILS % (MANUAL) 0 % (0-2); EOSINOPHILS % (MANUAL) 0 % (0-6); LYMPHOCYTES % (MANUAL) 2 % (13-45); MONOCYTES % (MANUAL) 1 % (3-13); SEGMENTED NEUTROPHILS % (MAN) 97 % (42-78); TOTAL CELLS COUNTED 100
[2020-03-02 05:42] LABS: ANISOCYTOSIS 1+; PLATELET COMMENT ADEQUATE
[2020-03-02 05:53] LABS: ANION GAP 20 (5-19); BLOOD UREA NITROGEN 137 mg/dL (7-20)
[2020-03-02 05:55] LABS: CALCIUM 6.3 mg/dL (8.4-10.2)
[2020-03-02] MEDS: METOPROLOL TARTRATE PF/INJ 5 MG/5 ML SDV IV PRN ×2 (09:35→16:18)
[2020-03-02] MEDS: ASCORBIC ACID 500 MG TABLET NG SCH ×2 (09:35→17:51)
[2020-03-02] MEDS: ZINC SULFATE 220 MG CAPSULE NG SCH (09:36)
[2020-03-02] MEDS: SODIUM BICARBONATE 650 MG TABLET NG SCH ×2 (09:37→21:40)
[2020-03-02] MEDS: ASPIRIN 81 MG TABLET, CHEWABLE NG SCH (09:41)
[2020-03-02] MEDS: CHOLECALCIFEROL (D3) 1,000 UNIT (25 MCG) TABLET NG SCH (09:42)
[2020-03-02] MEDS: CALCITRIOL 1 MCG/ML ORAL SOLN 15 ML NG SCH (09:43)
[2020-03-02] MEDS: PANTOPRAZOLE SODIUM 40 MG VIAL IV SCH (09:44)
[2020-03-02] MEDS: LINEZOLID 600 MG/300 ML RTUPB IV SCH ×2 (09:45→21:40)
[2020-03-02] MEDS: AMINO AC/PROTEIN HYDR/WHEY PRO 11 GM/45 ML PKT NG SCH ×3 (09:45→17:50)
[2020-03-02] MEDS: FLUTICASONE NASAL SPRAY 50 MCG/SPRY 120 SPRAY/16 GM NASL SCH ×2 (09:45→21:41)
[2020-03-02] MEDS: INSULIN GLARGINE,HUM.REC.ANLOG 1,000 UNIT/10 ML VIAL SUBCUT SCH (09:56)
--- NOTE | 2020-03-02 11:18 | PDOC PROGRESS REPORT ---
Subjective Progress Note for:: 03/02/20 Reason For Visit: Patient remains in the ICU intubated and sedated. Currently undergoing dialysis. Patient remains critical. Weaning is not working. Patient remains quite anasarcous. Patient remains anuric. Labs and medications were reviewed. Dialysis orders were reviewed with the treating dialysis nurse. Physical Exam Vital Signs: Temp Pulse Resp BP Pulse Ox 97.9 F 118 H 17 128/48 H 99 03/02/20 08:00 03/02/20 10:00 03/02/20 10:09 03/02/20 10:09 03/02/20 10:09 Pulse Oximeter Nocturnal Start: 02/08/20 13:55 Freq: RTQ4 Status: Complete Protocol: Document 02/09/20 04:00 LRO (Rec: 02/09/20 05:38 LRO [id number]) Nocturnal Pulse Oximetry Equipment Usage Equipment in Use Oxygen Delivery Method (includes room Room Air air) O2 Sat by Pulse Oximetry (92-100) 95 Continuous SpO2 Machine # 2 Pulse Oximeter Nocturnal Start: 02/10/20 11:39 Freq: RTQ4 Status: Complete Protocol: Document 02/11/20 04:06 PMU (Rec: 02/11/20 05:06 PMU [email or web address]) Nocturnal Pulse Oximetry Equipment Usage Equipment in Use Oxygen Delivery Method (includes room Room Air air) O2 Sat by Pulse Oximetry (92-100) 93 Continuous SpO2 Machine # N2 Intake & Output 03/01/20 03/02/20 03/03/20 06:59 06:59 06:59 Intake Total 1448 1413 10 Output Total 600 0 3600 Balance 848 1413 -3590 Weight 116.1 kg 117.4 kg Exam: Remains intubated and sedated. He looks quite anasarcous. Respiratory exam: PRESENT: clear to auscultation kevyn. ABSENT: crackles Cardiovascular exam: PRESENT: +S1, +S2 GI/Abdominal exam: PRESENT: normal bowel sounds, soft. ABSENT: organomegaly, tenderness Extremities exam: PRESENT: +2 edema Results Laboratory Results: 03/02/20 04:35 03/02/20 04:35 03/02/20 03/02/20 03/02/20 04:35 04:35 05:15 WBC 10.9 H RBC 2.95 L Hgb 9.3 L Hct 26.7 L MCV 90 MCH 31.4 MCHC 34.7 RDW 16.2 H Plt Count 152 Seg Neutrophils % Not Reportable Sodium 127.8 L Potassium 4.6 Chloride 91 L Carbon Dioxide 17 L Anion Gap 20 H BUN 137 H Creatinine 4.38 H Est GFR ( Amer) 16 L Glucose 104 Calcium 6.3 L* Ionized Calcium Tessa 0.86 L 02/08/20 02/08/20 02/21/20 09:49 13:11 04:50 Troponin I 0.160 0.155 NT-Pro-B Natriuret Pep 5540 H 16660 H 02/26/20 05:35 Troponin I NT-Pro-B Natriuret Pep 00154 H Impressions: Hip/Pelvis X-Ray 02/08/20 00:00 IMPRESSION: No acute fracture. Severe degenerative changes of the left hip. Knee X-Ray 02/08/20 00:00 IMPRESSION: NEGATIVE STUDY OF THE RIGHT KNEE. NO RADIOGRAPHIC EVIDENCE OF ACUTE INJURY. Head CT 02/08/20 10:19 IMPRESSION: MILD CHRONIC CHANGES OF ATROPHY AND MICROVASCULAR ISCHEMIA. NO ACUTE PROCESS. EVIDENCE OF ACUTE STROKE: NO. Renal Ultrasound 02/21/20 00:00 IMPRESSION: Increased echogenicity of the renal parenchyma suggestive of underlying chronic medical renal disease. There is no hydronephrosis. There is a Ryan catheter within the urinary bladder. Chest X-Ray 02/27/20 00:00 IMPRESSION: Tip of the enteric tube is now in the proximal stomach. Other findings of the chest are stable copyright 2011 [employer] All Rights Reserved Assessment & Plan - Diagnosis (1) Acute kidney injury superimposed on chronic kidney disease Is this a current diagnosis for this admission?: Yes Plan: Acute on chronic kidney disease with patient having underlying baseline creatinine of around 1.7-2. Currently anuric. Patient has got anasarca with deteriorating renal numbers in the background of ischemic cardiomyopathy with low EF. Initiated hemodialysis through a temporary catheter. Dialysis is ongoing. Plan to remove 3-4 L of fluid as tolerated. Discussed and reviewed dialysis orders with the treating dialysis nurse. 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 However some of the anasarca we see is because of third spacing given his very low albumin levels. (3) Acute respiratory failure due to COVID-19 Is this a current diagnosis for this admission?: Yes Plan: Remains intubated and sedated. He is also growing MRSA in his sputum culture. He is currently on linezolid for that. Being managed by health information technician. Monitor. (4) Hypotension Is this a current diagnosis for this admission?: Yes Plan: Currently stable. Monitor. (5) Hypocalcemia Is this a current diagnosis for this admission?: Yes Plan: Recommend continuing [id number] IV calcium gluconate. Monitor. (6) Metabolic acidosis Is this a current diagnosis for this admission?: Yes Plan: Unstable. See response to hemodialysis. Currently off bicarb drip. Monitor. (7) MARK (obstructive sleep apnea) Is this a current diagnosis for this admission?: Yes Plan: Status quo. (8) Atrial fibrillation Qualifiers: Atrial fibrillation type: persistent (not longstanding) Qualified Code(s): I48.19 - Other persistent atrial fibrillation; I48.1 - Persistent atrial fibrillation Is this a current diagnosis for this admission?: Yes Plan: Currently rate controlled. Monitor. (9) Hyperglycemia Plan: As per health information technician. (10) COVID-19 virus infection Is this a current diagnosis for this admission?: Yes Plan: As per health information technician. (11) Anemia Qualifiers: Anemia type: iron deficiency Is this a current diagnosis for this admission?: Yes Plan: .Patient has received multiple blood transfusions. Start erythropoietin now given details about its antioxidant properties for COVID infections. Monitor. (12) Hyponatremia Is this a current diagnosis for this admission?: Yes Plan: See response to fluid removal. Monitor.
[2020-03-02] MEDS ORDERED: HEPARIN SODIUM,PORCINE/D5W 25,000 UNIT/250 ML RTUINJ IV PRN (12:14)
[2020-03-02] MEDS ORDERED: HEPARIN SOD (PORCINE) 1,000 UNIT/ML 10 ML VIAL IV ONE (12:14)
[2020-03-02 13:21] LABS: AMORPHOUS SEDIMENT,URINE 1+ /HPF; APPEARANCE,URINE SLIGHTLY-CLOUDY; BILIRUBIN,URINE NEGATIVE (NEGATIVE); COLOR,URINE YELLOW; GLUCOSE, URINE NEGATIVE (NEGATIVE); KETONES,URINE NEGATIVE (NEGATIVE); LEUKOCYTE ESTERASE,URINE SMALL (NEGATIVE); NITRITE,URINE NEGATIVE (NEGATIVE); PROTEIN,URINE 100 mg/dL (NEGATIVE); URINE SPECIFIC GRAVITY 1.014; UROBILINOGEN,URINE NEGATIVE mg/dL (<2.0)
[2020-03-02 13:42] LABS: ARTERIAL BLOOD BASE EXCESS -0.4 mmol/L; ARTERIAL BLOOD H2CO3 0.94 mmol/L (1.05-1.35); ARTERIAL BLOOD HCO3 22.7 mmol/L (20-24); ARTERIAL BLOOD O2 SATURATION 97.7 % (94-98); ARTERIAL BLOOD PCO2 31.3 mmHg (35-45); ARTERIAL BLOOD PH 7.48 (7.35-7.45); ARTERIAL BLOOD PO2 93.7 mmHg (80-100); ARTERIAL BLOOD TOTAL CO2 23.7 mmol/L (23-27)
[2020-03-02 13:45] LABS: HEMATOCRIT 25.7 % (37.9-51.0); HEMOGLOBIN 8.8 g/dL (13.5-17.0); MEAN CORPUSCULAR HGB CONC 34.1 g/dL (32.0-36.0); MEAN CORPUSCULAR VOLUME 91 fl (80-97); PLATELET COUNT 130 10^3/uL (150-450); RED BLOOD COUNT 2.84 10^6/uL (4.35-5.55); RED CELL DISTRIBUTION WIDTH 15.7 % (11.5-14.0); WHITE BLOOD COUNT 8.2 10^3/uL (4.0-10.5)
[2020-03-02 13:46] LABS: ARTERIAL BLOOD FIO2 45%
[2020-03-02] MEDS: CEFTRIAXONE 1 GM/D5W RTU 1 GM/50 ML RTUPB IV SCH (13:57)
[2020-03-02] MEDS ORDERED: CALCIUM GLUC IN NACL, ISO-OSM 1 GM/50 ML RTUPB IV ONE (14:00)
[2020-03-02 14:01] LABS: INTERNATIONAL RATION (INR) 1.15; PROTHROMBIN TIME 14.9 SEC (11.4-15.4)
[2020-03-02 14:02] LABS: PARTIAL THROMBOPLASTIN TIME 33.2 SEC (23.5-35.8)
[2020-03-02 14:13] LABS: ABSOLUTE LYMPHOCYTES# (MANUAL) 0.1 10^3/uL (0.5-4.7); ABSOLUTE MONOCYTES # (MANUAL) 0.2 10^3/uL (0.1-1.4); BASOPHILS % (MANUAL) 0 % (0-2); EOSINOPHILS % (MANUAL) 0 % (0-6); LYMPHOCYTES % (MANUAL) 1 % (13-45); MONOCYTES % (MANUAL) 2 % (3-13); SEGMENTED NEUTROPHILS % (MAN) 97 % (42-78); TOTAL CELLS COUNTED 100
[2020-03-02 14:14] LABS: ANISOCYTOSIS SLIGHT; OVALOCYTES SLIGHT; PLATELET COMMENT DECREASED; POIKILOCYTOSIS SLIGHT
[2020-03-02 14:15] LABS: POLYCHROMASIA SLIGHT
[2020-03-02] MEDS: ACETAMINOPHEN SOLN 325 MG/10.15 ML UDCUP NG PRN (16:18)
--- NOTE | 2020-03-02 17:47 | PDOC CRITICAL CARE PROG REPORT ---
General Date:: 03/02/20 ICU Day:: 20 Ventilator Day:: 20 Hospital Day:: 24 Resuscitation Status: Full Code Events in the past 12 to 24 Hours:: This 69-year-old male was admitted on 02/08/2020 with dyspnea and leg weakness. He reported falling out of his truck a few days prior to presentation. He transferred to the ICU on 02/12/2020 after requiring endotracheal intubation due to acute respiratory failure secondary to COVID-19 pneumonia. 03/02: Remains intubated. On pressure support ventilation. Actually, from a respiratory mechanics standpoint looks good; however, he has copious purulent secretions emanating from the ET tube circuit. Trach aspirate (02/20) isolated MRSA and yeast. Sacral decubitus is isolating E. coli and other gram-negative rods. On Lisa nasal lid for MRSA coverage. Not on antibiotic therapy for gram- negative rods. Review of systems relevant to events:: Respiratory: COVID-19 pneumonia Renal: End-stage renal disease Reason for ICU Addmission:: Acute respiratory distress and need for intubation - Medications: Medications reviewed and adjusted accordingly: Yes Physical Exam Vital Signs: Temp Pulse Resp BP Pulse Ox 97.9 F 107 H 17 128/48 H 99 03/02/20 08:00 03/02/20 10:00 03/02/20 10:09 03/02/20 10:09 03/02/20 10:09 Pulse Oximeter Nocturnal Start: 02/08/20 13:55 Freq: RTQ4 Status: Complete Protocol: Document 02/09/20 04:00 LRO (Rec: 02/09/20 05:38 LRO [email or web address]) Nocturnal Pulse Oximetry Equipment Usage Equipment in Use Oxygen Delivery Method (includes room Room Air air) O2 Sat by Pulse Oximetry (92-100) 95 Continuous SpO2 Machine # 2 Pulse Oximeter Nocturnal Start: 02/10/20 11:39 Freq: RTQ4 Status: Complete Protocol: Document 02/11/20 04:06 PMU (Rec: 02/11/20 05:06 PMU [email or web address]) Nocturnal Pulse Oximetry Equipment Usage Equipment in Use Oxygen Delivery Method (includes room Room Air air) O2 Sat by Pulse Oximetry (92-100) 93 Continuous SpO2 Machine # N2 Intake & Output 03/01/20 03/02/20 03/03/20 06:59 06:59 06:59 Intake Total 1448 1413 310 Output Total 600 0 3600 Balance 848 1413 -3290 Weight 116.1 kg 117.4 kg Weight/Height Weight 117.4 kg Height 1.75 m General appearance: PRESENT: no acute distress, well-developed, well-nourished Head exam: PRESENT: atraumatic, normocephalic Eye exam: PRESENT: conjunctiva pink, EOMI, PERRLA. ABSENT: scleral icterus Mouth exam: PRESENT: moist, tongue midline Neck exam: ABSENT: carotid bruit, JVD, lymphadenopathy, thyromegaly Respiratory exam: PRESENT: decreased breath sounds, rales, rhonchi. ABSENT: wheezes Cardiovascular exam: PRESENT: RRR. ABSENT: diastolic murmur, rubs, systolic mur mur Pulses: PRESENT: normal dorsalis pedis pul GI/Abdominal exam: PRESENT: normal bowel sounds, soft. ABSENT: distended, guarding, mass, organolmegaly, rebound, tenderness Extremities exam: PRESENT: full ROM. ABSENT: calf tenderness, clubbing, pedal edema Musculoskeletal exam: PRESENT: normal inspection. ABSENT: deformity Neurological exam: PRESENT: awake, CN II-XII grossly intact, motor sensory deficit. ABSENT: reflexes normal Skin exam: PRESENT: dry, intact, warm. ABSENT: cyanosis, rash Tubes/Lines: PRESENT: Endotracheal Tube, Dialysis catheter Laboratory/Radiographs Laboratory Results: 03/02/20 04:35 03/02/20 04:35 03/02/20 03/02/20 03/02/20 04:35 04:35 05:15 WBC 10.9 H RBC 2.95 L Hgb 9.3 L Hct 26.7 L MCV 90 MCH 31.4 MCHC 34.7 RDW 16.2 H Plt Count 152 Seg Neutrophils % Not Reportable Sodium 127.8 L Potassium 4.6 Chloride 91 L Carbon Dioxide 17 L Anion Gap 20 H BUN 137 H Creatinine 4.38 H Est GFR ( Amer) 16 L Glucose 104 Calcium 6.3 L* Ionized Calcium Tessa 0.86 L 02/08/20 02/08/20 02/21/20 09:49 13:11 04:50 Troponin I 0.160 0.155 NT-Pro-B Natriuret Pep 5540 H 11618 H 02/26/20 05:35 Troponin I NT-Pro-B Natriuret Pep 20823 H Impressions: Hip/Pelvis X-Ray 02/08/20 00:00 IMPRESSION: No acute fracture. Severe degenerative changes of the left hip. Knee X-Ray 02/08/20 00:00 IMPRESSION: NEGATIVE STUDY OF THE RIGHT KNEE. NO RADIOGRAPHIC EVIDENCE OF ACUTE INJURY. Head CT 02/08/20 10:19 IMPRESSION: MILD CHRONIC CHANGES OF ATROPHY AND MICROVASCULAR ISCHEMIA. NO ACUTE PROCESS. EVIDENCE OF ACUTE STROKE: NO. Renal Ultrasound 02/21/20 00:00 IMPRESSION: Increased echogenicity of the renal parenchyma suggestive of underlying chronic medical renal disease. There is no hydronephrosis. There is a Ryan catheter within the urinary bladder. Chest X-Ray 02/27/20 00:00 IMPRESSION: Tip of the enteric tube is now in the proximal stomach. Other findings of the chest are stable copyright 2011 [employer]- All Rights Reserved Assessment and Plan - Diagnosis (1) Acute respiratory failure due to COVID-19 Is this a current diagnosis for this admission?: Yes Plan: Wean pressure support, as tolerated. Add budesonide. Treated with hydroxychloroquine/dexamethasone. (2) MRSA pneumonia Qualifiers: Laterality: bilateral Lung location: unspecified part of lung Qualified Code(s): J15.212 - Pneumonia due to Methicillin resistant Staphylococcus aureus Is this a current diagnosis for this admission?: Yes Plan: Continue linezolid. (3) Atrial fibrillation Qualifiers: Atrial fibrillation type: persistent (not longstanding) Qualified Code(s): I48.19 - Other persistent atrial fibrillation; I48.1 - Persistent atrial fibrillation Is this a current diagnosis for this admission?: Yes Plan: Rate control with diltiazem. Start heparin infusion. The patient previously had fecal occult blood. Monitor hemoglobin. (4) Hypocalcemia Is this a current diagnosis for this admission?: Yes Plan: Calcium gluconate 1 g IV today. Continue calcium acetate. Check prealbumin. (5) Hyponatremia Is this a current diagnosis for this admission?: Yes Plan: Continue salt tablets. (6) Occult blood in stools Is this a current diagnosis for this admission?: Yes (7) Normocytic anemia Is this a current diagnosis for this admission?: Yes Plan: Monitor hemoglobin. (8) CKD (chronic kidney disease) stage 5, GFR less than 15 ml/min Is this a current diagnosis for this admission?: Yes Plan: Hemodialysis per nephrology. Nephrology assistance appreciated. Critical Time Critical Time (minutes): 60 Level of Care: ICU -: 1. The care of a critical patient is a dynamic process. This note is a medical field representative synopsis but static in nature. The timeframe for treatments given in order is not necessarily the actual time these treatments may have been done. 2. This patient requires critical care secondary to ongoing requirements for therapy not offered or safe outside the critical care environment. Transfer to a lower level of care will result in altered life or limb morbidity and mortality. 3. Multidisciplinary rounds completed. 4. ABCDE bundle addressed.
[2020-03-02] MEDS: MORPHINE SULFATE 10 MG/ML INJ IV PRN (17:50)
[2020-03-02 18:44] LABS: ARTERIAL BLOOD BASE EXCESS -2.6 mmol/L; ARTERIAL BLOOD H2CO3 0.94 mmol/L (1.05-1.35); ARTERIAL BLOOD HCO3 20.9 mmol/L (20-24); ARTERIAL BLOOD O2 SATURATION 96.4 % (94-98); ARTERIAL BLOOD PCO2 31.3 mmHg (35-45); ARTERIAL BLOOD PH 7.44 (7.35-7.45); ARTERIAL BLOOD PO2 80.1 mmHg (80-100); ARTERIAL BLOOD TOTAL CO2 21.8 mmol/L (23-27)
[2020-03-02 18:45] LABS: ARTERIAL BLOOD FIO2 40%
[2020-03-02] MEDS: ATORVASTATIN CALCIUM 40 MG TABLET NG SCH (21:40)
[2020-03-03 04:19] LABS: ARTERIAL BLOOD BASE EXCESS -3.2 mmol/L; ARTERIAL BLOOD FIO2 40%; ARTERIAL BLOOD H2CO3 0.88 mmol/L (1.05-1.35); ARTERIAL BLOOD HCO3 20.1 mmol/L (20-24); ARTERIAL BLOOD O2 SATURATION 96.8 % (94-98); ARTERIAL BLOOD PCO2 29.4 mmHg (35-45); ARTERIAL BLOOD PH 7.45 (7.35-7.45); ARTERIAL BLOOD PO2 82.8 mmHg (80-100)
[2020-03-03 04:22] LABS: HEMATOCRIT 25.6 % (37.9-51.0); HEMOGLOBIN 8.7 g/dL (13.5-17.0); MEAN CORPUSCULAR HEMOGLOBIN 31.1 pg (27.0-33.4); MEAN CORPUSCULAR HGB CONC 33.9 g/dL (32.0-36.0); MEAN CORPUSCULAR VOLUME 92 fl (80-97); PLATELET COUNT 132 10^3/uL (150-450); RED BLOOD COUNT 2.79 10^6/uL (4.35-5.55); RED CELL DISTRIBUTION WIDTH 16.3 % (11.5-14.0); WHITE BLOOD COUNT 6.1 10^3/uL (4.0-10.5)
[2020-03-03 04:33] LABS: ANION GAP 16 (5-19); CARBON DIOXIDE 21 mmol/L (22-30); CHLORIDE 94 mmol/L (98-107); GLUCOSE 94 mg/dL (75-110); PHOSPHORUS 5.1 mg/dL (2.5-4.5); POTASSIUM 3.8 mmol/L (3.6-5.0)
[2020-03-03 04:41] LABS: PREALBUMIN 14.4 mg/dL (17.6-36.0)
[2020-03-03 04:56] LABS: BLOOD UREA NITROGEN 86 mg/dL (7-20)
[2020-03-03 04:57] LABS: CALCIUM 6.5 mg/dL (8.4-10.2)
[2020-03-03 05:01] LABS: ABSOLUTE LYMPHOCYTES# (MANUAL) 0.4 10^3/uL (0.5-4.7); ANISOCYTOSIS SLIGHT; BASOPHILS % (MANUAL) 0 % (0-2); EOSINOPHILS % (MANUAL) 0 % (0-6); LYMPHOCYTES % (MANUAL) 6 % (13-45); MONOCYTES % (MANUAL) 0 % (3-13); OVALOCYTES SLIGHT; POIKILOCYTOSIS SLIGHT; SEGMENTED NEUTROPHILS % (MAN) 94 % (42-78); TOTAL CELLS COUNTED 100; TOXIC GRANULATION SLIGHT
[2020-03-03 05:02] LABS: PLATELET COMMENT ADEQUATE; TEAR DROP CELLS SLIGHT
[2020-03-03] MEDS: CALCIUM ACETATE 667 MG CAPSULE PO SCH ×3 (05:34→22:03)
[2020-03-03] MEDS: DILTIAZEM HCL 90 MG TABLET NG SCH ×4 (05:34→23:28)
[2020-03-03] MEDS: INSULIN LISPRO 100 UNIT/ML 3 ML VIAL SUBCUT SCH ×4 (05:35→23:28)
[2020-03-03] MEDS ORDERED: CALCIUM GLUC IN NACL, ISO-OSM 1 GM/50 ML RTUPB IV ONE (07:27)
[2020-03-03] MEDS ORDERED: POTASSIUM CHLORIDE 20 MEQ PACKET PO ONE (08:00)
[2020-03-03] MEDS: MAGNESIUM SULFATE/D5W 1 GM/100 ML RTUPB IV SCH ×2 (08:44→15:45)
--- NOTE | 2020-03-03 09:08 | RADIOLOGY REPORT (SQ) ---
EXAM DESCRIPTION: CHEST SINGLE VIEW IMAGES COMPLETED DATE/TIME: 03/03/2020 6:55 am REASON FOR STUDY: ETT tube COMPARISON: 02/27/2020 NUMBER OF VIEWS: One view. TECHNIQUE: Single frontal radiographic image of the chest acquired. LIMITATIONS: None. FINDINGS: LUNGS AND PLEURA: Bilateral airspace disease, right greater than left without significant change. No pneumothorax. MEDIASTINUM AND HEART: Stable heart size and mediastinal structures. SUPPORT DEVICES: Appropriate location without change. BONY STRUCTURES: No acute findings. HARDWARE: None. OTHER: No other significant finding. IMPRESSION: STABLE APPEARANCE OF THE CHEST. SUPPORT DEVICES UNCHANGED. Reading location - IP/workstation name: [email or web address]
[2020-03-03] MEDS: FLUTICASONE NASAL SPRAY 50 MCG/SPRY 120 SPRAY/16 GM NASL SCH ×2 (10:00→22:02)
[2020-03-03] MEDS: ASPIRIN 81 MG TABLET, CHEWABLE NG SCH (10:39)
[2020-03-03] MEDS: PANTOPRAZOLE SODIUM 40 MG VIAL IV SCH (10:39)
[2020-03-03] MEDS: ASCORBIC ACID 500 MG TABLET NG SCH ×2 (10:39→17:04)
[2020-03-03] MEDS: SODIUM BICARBONATE 650 MG TABLET NG SCH ×2 (10:39→22:03)
[2020-03-03] MEDS: CHOLECALCIFEROL (D3) 1,000 UNIT (25 MCG) TABLET NG SCH (10:39)
[2020-03-03] MEDS: AMINO AC/PROTEIN HYDR/WHEY PRO 11 GM/45 ML PKT NG SCH ×3 (10:40→19:00)
[2020-03-03] MEDS: METOPROLOL TARTRATE PF/INJ 5 MG/5 ML SDV IV PRN (10:40)
[2020-03-03] MEDS: CALCITRIOL 1 MCG/ML ORAL SOLN 15 ML NG SCH (10:41)
[2020-03-03] MEDS: LINEZOLID 600 MG/300 ML RTUPB IV SCH ×2 (11:00→22:05)
[2020-03-03] MEDS ORDERED: MAGNESIUM SULFATE/D5W 1 GM/100 ML RTUPB IV SCH (12:00)
[2020-03-03] MEDS: INSULIN GLARGINE,HUM.REC.ANLOG 1,000 UNIT/10 ML VIAL SUBCUT SCH (14:37)
[2020-03-03] MEDS: CEFTRIAXONE 1 GM/D5W RTU 1 GM/50 ML RTUPB IV SCH (14:38)
[2020-03-03] MEDS: HEPARIN SOD (PORCINE) 5,000 UNIT/ML 1 ML VIAL SUBCUT SCH ×2 (14:39→22:03)
--- NOTE | 2020-03-03 17:35 | PDOC CRITICAL CARE PROG REPORT ---
General Date:: 03/03/20 ICU Day:: 21 Ventilator Day:: 21 Hospital Day:: 25 Resuscitation Status: Full Code Events in the past 12 to 24 Hours:: This 69-year-old male was admitted on 02/08/2020 with dyspnea and leg weakness. He reported falling out of his truck a few days prior to presentation. He transferred to the ICU on 02/12/2020 after requiring endotracheal intubation due to acute respiratory failure secondary to COVID-19 pneumonia. 03/02: Remains intubated. On pressure support ventilation. Actually, from a respiratory mechanics standpoint looks good; however, he has copious purulent secretions emanating from the ET tube circuit. Trach aspirate (02/20) isolated MRSA and yeast. Sacral decubitus is isolating E. coli and other gram-negative rods. On linezolid for MRSA coverage. Not on antibiotic therapy for gram- negative rods. 03/03: Remains intubated. Restarted heparin infusion yesterday; however, the patient had a bout of hemoptysis, prompting immediate discontinuation. He remains hemodynamically stable. He was changed from pressure support ventilation back to SIMV PRVC plus pressure support for the evening. Sacral wound isolated E coli and E cloacae. Previously, aspirate isolated MRSA. Now on Rocephin and Zyvox. He is awake. Off sedation. However, he does not follow commands. Review of systems relevant to events:: Respiratory: COVID-19 pneumonia Renal: End-stage renal disease Neurological/musculoskeletal: Weakness Reason for ICU Addmission:: Acute respiratory distress and need for intubation - Medications: Medications reviewed and adjusted accordingly: Yes Physical Exam Vital Signs: Temp Pulse Resp BP Pulse Ox 99.3 F 128 H 20 161/54 H 91 L 03/03/20 08:00 03/03/20 08:00 03/03/20 08:00 03/03/20 08:00 03/03/20 08:00 Pulse Oximeter Nocturnal Start: 02/08/20 13:55 Freq: RTQ4 Status: Complete Protocol: Document 02/09/20 04:00 LRO (Rec: 02/09/20 05:38 LRO [email or web address]) Nocturnal Pulse Oximetry Equipment Usage Equipment in Use Oxygen Delivery Method (includes room Room Air air) O2 Sat by Pulse Oximetry (92-100) 95 Continuous SpO2 Machine # 2 Pulse Oximeter Nocturnal Start: 02/10/20 11:39 Freq: RTQ4 Status: Complete Protocol: Document 02/11/20 04:06 PMU (Rec: 02/11/20 05:06 PMU [email or web address]) Nocturnal Pulse Oximetry Equipment Usage Equipment in Use Oxygen Delivery Method (includes room Room Air air) O2 Sat by Pulse Oximetry (92-100) 93 Continuous SpO2 Machine # N2 Intake & Output 03/02/20 03/03/20 03/04/20 06:59 06:59 06:59 Intake Total 1413 1309 Output Total 0 3983 5 Balance 1413 -2674 -5 Weight 117.4 kg 113.8 kg Weight/Height Weight 113.8 kg Height 1.75 m General appearance: PRESENT: no acute distress, obese, well-developed, well-nou rished Head exam: PRESENT: atraumatic, normocephalic Eye exam: PRESENT: conjunctiva pink, EOMI, PERRLA. ABSENT: scleral icterus Mouth exam: PRESENT: moist, tongue midline Neck exam: ABSENT: carotid bruit, JVD, lymphadenopathy, thyromegaly Respiratory exam: PRESENT: rales - Right upper lung, rhonchi - Right upper lung Cardiovascular exam: PRESENT: RRR. ABSENT: diastolic murmur, rubs, systolic murmur Pulses: PRESENT: normal dorsalis pedis pul GI/Abdominal exam: PRESENT: normal bowel sounds, soft. ABSENT: distended, guarding, mass, organolmegaly, rebound, tenderness Gentrourinary exam: PRESENT: indwelling catheter Extremities exam: PRESENT: full ROM, +2 edema. ABSENT: calf tenderness, clubbing Musculoskeletal exam: ABSENT: deformity Neurological exam: PRESENT: alert, awake, reflexes normal, CN II-XII grossly intact, motor sensory deficit - Decreased pain sensation x4 extremities. Motor 1/5 4 extremities Psychiatric exam: ABSENT: agitated, anxious Skin exam: PRESENT: dry, intact, warm, other - Eschar at the left ear, lip and right ear. Deep tissue injury on the left heel and right heel. Sacral decubitus ulcer.. ABSENT: cyanosis, rash Tubes/Lines: PRESENT: Endotracheal Tube, Dialysis catheter Laboratory/Radiographs Laboratory Results: 03/03/20 04:00 03/03/20 04:00 03/02/20 03/02/20 03/02/20 12:45 13:30 13:30 WBC 8.2 RBC 2.84 L Hgb 8.8 L Hct 25.7 L MCV 91 MCH 31.0 MCHC 34.1 RDW 15.7 H Plt Count 130 L Seg Neutrophils % Not Reportable Carbonic Acid 0.94 L HCO3/H2CO3 Ratio 24:1 ABG pH 7.48 H ABG pCO2 31.3 L ABG pO2 93.7 ABG HCO3 22.7 ABG O2 Saturation 97.7 ABG Base Excess -0.4 FiO2 45% Sodium Potassium Chloride Carbon Dioxide Anion Gap BUN Creatinine Est GFR ( Amer) Glucose Calcium Phosphorus Magnesium Prealbumin Lipase Urine Color YELLOW Urine Appearance SLIGHTLY-CLOUDY Urine pH 5.0 Ur Specific Boomer 1.014 Urine Protein 100 H Urine Glucose (UA) NEGATIVE Urine Ketones NEGATIVE Urine Blood LARGE H Urine Nitrite NEGATIVE Ur Leukocyte Esterase SMALL H Urine WBC (Auto) 19 Urine RBC (Auto) 27 03/02/20 03/03/20 03/03/20 18:25 04:00 04:00 WBC RBC Hgb Hct MCV MCH MCHC RDW Plt Count Seg Neutrophils % Carbonic Acid 0.94 L 0.88 L HCO3/H2CO3 Ratio 22:1 22:1 ABG pH 7.44 7.45 ABG pCO2 31.3 L 29.4 L ABG pO2 80.1 82.8 ABG HCO3 20.9 20.1 ABG O2 Saturation 96.4 96.8 ABG Base Excess -2.6 -3.2 FiO2 40% 40% Sodium 130.8 L Potassium 3.8 Chloride 94 L Carbon Dioxide 21 L Anion Gap 16 BUN 86 H D Creatinine 3.38 H Est GFR ( Amer) 22 L Glucose 94 Calcium 6.5 L* Phosphorus 5.1 H Magnesium 1.7 Prealbumin 14.4 L Lipase Urine Color Urine Appearance Urine pH Ur Specific Boomer Urine Protein Urine Glucose (UA) Urine Ketones Urine Blood Urine Nitrite Ur Leukocyte Esterase Urine WBC (Auto) Urine RBC (Auto) 03/03/20 03/03/20 04:00 04:00 WBC 6.1 RBC 2.79 L Hgb 8.7 L Hct 25.6 L MCV 92 MCH 31.1 MCHC 33.9 RDW 16.3 H Plt Count 132 L Seg Neutrophils % Not Reportable Carbonic Acid HCO3/H2CO3 Ratio ABG pH ABG pCO2 ABG pO2 ABG HCO3 ABG O2 Saturation ABG Base Excess FiO2 Sodium Potassium Chloride Carbon Dioxide Anion Gap BUN Creatinine Est GFR ( Amer) Glucose Calcium Phosphorus Magnesium Prealbumin Lipase 117.6 Urine Color Urine Appearance Urine pH Ur Specific Boomer Urine Protein Urine Glucose (UA) Urine Ketones Urine Blood Urine Nitrite Ur Leukocyte Esterase Urine WBC (Auto) Urine RBC (Auto) 02/27/20 16:50 Sacrum - Superficial Gram Stain - Final 02/27/20 16:50 Sacrum - Superficial Wound Culture - Final Enterobacter Cloacae Escherichia Coli 02/08/20 02/08/20 02/21/20 09:49 13:11 04:50 Troponin I 0.160 0.155 NT-Pro-B Natriuret Pep 5540 H 12308 H 02/26/20 05:35 Troponin I NT-Pro-B Natriuret Pep 73546 H Impressions: Hip/Pelvis X-Ray 02/08/20 00:00 IMPRESSION: No acute fracture. Severe degenerative changes of the left hip. Knee X-Ray 02/08/20 00:00 IMPRESSION: NEGATIVE STUDY OF THE RIGHT KNEE. NO RADIOGRAPHIC EVIDENCE OF ACUTE INJURY. Head CT 02/08/20 10:19 IMPRESSION: MILD CHRONIC CHANGES OF ATROPHY AND MICROVASCULAR ISCHEMIA. NO ACUTE PROCESS. EVIDENCE OF ACUTE STROKE: NO. Renal Ultrasound 02/21/20 00:00 IMPRESSION: Increased echogenicity of the renal parenchyma suggestive of underlying chronic medical renal disease. There is no hydronephrosis. There is a Ryan catheter within the urinary bladder. All labs, radiographs, diagnostic studies and EKGs were personally reviewed: Yes In addition, reports of radiographic and diagnostic studies were read: Yes Assessment and Plan - Diagnosis (1) Acute respiratory failure due to COVID-19 Is this a current diagnosis for this admission?: Yes Plan: Pressure support trial today. Can you budesonide. Treated with hydroxychloroquine/dexamethasone. (2) MRSA pneumonia Qualifiers: Laterality: bilateral Lung location: unspecified part of lung Qualified Code(s): J15.212 - Pneumonia due to Methicillin resistant Staphylococcus aureus Is this a current diagnosis for this admission?: Yes Plan: Continue linezolid. (3) Atrial fibrillation Qualifiers: Atrial fibrillation type: persistent (not longstanding) Qualified Code(s): I48.19 - Other persistent atrial fibrillation; I48.1 - Persistent atrial fibrillation Is this a current diagnosis for this admission?: Yes Plan: Rate control with diltiazem. Off heparin infusion due to hemoptysis. Monitor hemoglobin. Will restart DVT prophylaxis today. (4) Hypocalcemia Is this a current diagnosis for this admission?: Yes Plan: Low calcium, elevated phosphorus, elevated PTH. Check vitamin D levels. Check lipase. Calcium supplementation with calcium acetate and calcium gluconate. Hold zinc. (5) Hyponatremia Is this a current diagnosis for this admission?: Yes Plan: Continue salt tablets. (6) Occult blood in stools Is this a current diagnosis for this admission?: Yes (7) Normocytic anemia Is this a current diagnosis for this admission?: Yes (8) CKD (chronic kidney disease) stage 5, GFR less than 15 ml/min Is this a current diagnosis for this admission?: Yes Plan: Hemodialysis per nephrology. Nephrology assistance appreciated. (9) Decubitus ulcer of sacral region, unstageable Is this a current diagnosis for this admission?: Yes Plan: Present on admission. On Rocephin. Will need wound care consult. Critical Time Critical Time (minutes): 60 Level of Care: ICU -: 1. The care of a critical patient is a dynamic process. This note is a sales representative church furniture synopsis but static in nature. The timeframe for treatments given in order is not necessarily the actual time these treatments may have been done. 2. This patient requires critical care secondary to ongoing requirements for therapy not offered or safe outside the critical care environment. Transfer to a lower level of care will result in altered life or limb morbidity and mortality. 3. Multidisciplinary rounds completed. 4. ABCDE bundle addressed.
[2020-03-03 17:51] LABS: ANION GAP 15 (5-19); BLOOD UREA NITROGEN 99 mg/dL (7-20); CALCIUM 7.1 mg/dL (8.4-10.2); CARBON DIOXIDE 22 mmol/L (22-30); CHLORIDE 93 mmol/L (98-107); GLUCOSE 136 mg/dL (75-110); POTASSIUM 4.1 mmol/L (3.6-5.0)
[2020-03-03] MEDS: ATORVASTATIN CALCIUM 40 MG TABLET NG SCH (22:03)
[2020-03-04] MEDS ORDERED: CALCIUM GLUCONATE 1000 MG/10 ML INJ IV ONE (01:15)
[2020-03-04 04:41] LABS: PHOSPHORUS 5.2 mg/dL (2.5-4.5)
[2020-03-04] MEDS ORDERED: EPOETIN ALFA-EPBX 2,000 UNIT, EPOETIN ALFA-EPBX 3,000 UNIT, EPOETIN ALFA-EPBX 20,000 UN... IV PRN ×4 (05:00)
[2020-03-04] MEDS: HEPARIN SOD (PORCINE) 5,000 UNIT/ML 1 ML VIAL SUBCUT SCH ×3 (06:04→22:20)
[2020-03-04] MEDS: DILTIAZEM HCL 90 MG TABLET NG SCH ×4 (06:05→23:11)
[2020-03-04] MEDS: INSULIN LISPRO 100 UNIT/ML 3 ML VIAL SUBCUT SCH ×3 (06:05→17:27)
[2020-03-04] MEDS: CALCIUM ACETATE 667 MG CAPSULE PO SCH ×3 (06:05→22:20)
[2020-03-04] MEDS ORDERED: CALCIUM CHLORIDE 10% PF/INJ 1000 MG/10 ML SDV IV SCH (07:30)
[2020-03-04 07:43] LABS: HEMOGLOBIN 8.5 g/dL (13.5-17.0); MEAN CORPUSCULAR HEMOGLOBIN 31.3 pg (27.0-33.4); MEAN CORPUSCULAR HGB CONC 34.1 g/dL (32.0-36.0); MEAN CORPUSCULAR VOLUME 92 fl (80-97); PLATELET COUNT 148 10^3/uL (150-450); RED BLOOD COUNT 2.73 10^6/uL (4.35-5.55); RED CELL DISTRIBUTION WIDTH 16.5 % (11.5-14.0); WHITE BLOOD COUNT 4.3 10^3/uL (4.0-10.5)
--- NOTE | 2020-03-04 08:28 | RADIOLOGY REPORT (SQ) ---
EXAM DESCRIPTION: CHEST SINGLE VIEW IMAGES COMPLETED DATE/TIME: 03/04/2020 7:02 am REASON FOR STUDY: Intubated COMPARISON: AP view of the chest from 03/03/2020. EXAM PARAMETERS: NUMBER OF VIEWS: One view. TECHNIQUE: An AP view of the chest was obtained. RADIATION DOSE: NA LIMITATIONS: None. FINDINGS: LUNGS AND PLEURA: Stable appearance of the lungs and pleura. MEDIASTINUM AND HILAR STRUCTURES: Stable mediastinal and hilar contours. HEART AND VASCULAR STRUCTURES: Stable cardiac silhouette. BONES: No acute findings. HARDWARE: The tip of the endotracheal tube projects 3.7 cm above the kera. The tip of the enteric tube projects past the gastroesophageal junction and outside the field of view of the radiograph. T he tip of the right IJ central venous catheter projects at the level of the cavoatrial junction. The re is re- demonstration of sternotomy wires, mediastinal surgical clips, a left atrial appendage mikhail ce and an implantable loop recorder. OTHER: No other finding. IMPRESSION: Unchanged radiographic appearance of the chest. TECHNICAL DOCUMENTATION: JOB ID: [id number] 2010 [employer]- All Rights Reserved Reading location - IP/workstation name: [email or web address]
[2020-03-04] MEDS: CALCIUM GLUCONATE 1 GM/NS 50 ML RTU IV SCH ×5 (09:45→23:08)
[2020-03-04] MEDS: AMINO AC/PROTEIN HYDR/WHEY PRO 11 GM/45 ML PKT NG SCH ×3 (09:45→17:27)
[2020-03-04] MEDS: SODIUM BICARBONATE 650 MG TABLET NG SCH ×2 (09:46→22:19)
[2020-03-04] MEDS: ASCORBIC ACID 500 MG TABLET NG SCH ×2 (09:46→17:26)
[2020-03-04] MEDS: CHOLECALCIFEROL (D3) 1,000 UNIT (25 MCG) TABLET NG SCH ×2 (09:46→22:19)
[2020-03-04] MEDS: ASPIRIN 81 MG TABLET, CHEWABLE NG SCH (09:46)
[2020-03-04] MEDS: FLUTICASONE NASAL SPRAY 50 MCG/SPRY 120 SPRAY/16 GM NASL SCH ×2 (09:47→22:19)
[2020-03-04] MEDS: CALCITRIOL 1 MCG/ML ORAL SOLN 15 ML NG SCH (09:47)
[2020-03-04] MEDS: INSULIN GLARGINE,HUM.REC.ANLOG 1,000 UNIT/10 ML VIAL SUBCUT SCH (10:56)
[2020-03-04] MEDS: LINEZOLID 600 MG/300 ML RTUPB IV SCH ×2 (10:59→22:20)
[2020-03-04 12:25] LABS: ARTERIAL BLOOD FIO2 40%; ARTERIAL BLOOD H2CO3 0.92 mmol/L (1.05-1.35); ARTERIAL BLOOD HCO3 18.9 mmol/L (20-24); ARTERIAL BLOOD PCO2 30.6 mmHg (35-45); ARTERIAL BLOOD PH 7.41 (7.35-7.45); ARTERIAL BLOOD PO2 79.5 mmHg (80-100); ARTERIAL BLOOD TOTAL CO2 19.9 mmol/L (23-27)
[2020-03-04] MEDS: PANTOPRAZOLE SODIUM 40 MG VIAL IV SCH (12:57)
[2020-03-04] MEDS: CEFTRIAXONE 1 GM/D5W RTU 1 GM/50 ML RTUPB IV SCH (13:01)
[2020-03-04 15:54] LABS: INTERNATIONAL RATION (INR) 1.05; PROTHROMBIN TIME 13.9 SEC (11.4-15.4)
[2020-03-04] MEDS: METOPROLOL TARTRATE PF/INJ 5 MG/5 ML SDV IV PRN (17:23)
[2020-03-04 18:11] LABS: ANION GAP 15 (5-19); BLOOD UREA NITROGEN 70 mg/dL (7-20); CALCIUM 7.6 mg/dL (8.4-10.2); CARBON DIOXIDE 22 mmol/L (22-30); CHLORIDE 94 mmol/L (98-107); GLUCOSE 104 mg/dL (75-110); POTASSIUM 3.9 mmol/L (3.6-5.0)
[2020-03-04] MEDS ORDERED: CALCIUM GLUCONATE 2,222 MG in DEXTROSE 5%-WATER 100 ML IV ONE (18:19)
[2020-03-04] MEDS: ACETAMINOPHEN SOLN 325 MG/10.15 ML UDCUP NG PRN (18:54)
--- NOTE | 2020-03-04 19:47 | PDOC CRITICAL CARE PROG REPORT ---
General Date:: 03/04/20 ICU Day:: 22 Ventilator Day:: Hospital Day:: Resuscitation Status: Full Code Events in the past 12 to 24 Hours:: This 69-year-old male was admitted on 02/08/2020 with dyspnea and leg weakness. He reported falling out of his truck a few days prior to presentation. He transferred to the ICU on 02/12/2020 after requiring endotracheal intubation due to acute respiratory failure secondary to COVID-19 pneumonia. 03/02: Remains intubated. On pressure support ventilation. Actually, from a respiratory mechanics standpoint looks good; however, he has copious purulent secretions emanating from the ET tube circuit. Trach aspirate (02/20) isolated MRSA and yeast. Sacral decubitus is isolating E. coli and other gram-negative rods. On linezolid for MRSA coverage. Not on antibiotic therapy for gram- negative rods. 03/03: Remains intubated. Restarted heparin infusion yesterday; however, the patient had a bout of hemoptysis, prompting immediate discontinuation. He remains hemodynamically stable. He was changed from pressure support ventilation back to SIMV PRVC plus pressure support for the evening. Sacral wound isolated E coli and E cloacae. Previously, aspirate isolated MRSA. Now on Rocephin and Zyvox. He is awake. Off sedation. However, he does not follow commands. 03/04: Remains intubated. Continues to need calcium repletion. Notably, the patient does demonstrate more motor activity today than on previous exams. Awake, alert. Squeezes right hand briskly. Weak communications attendant strength in the left hand but much improved. Does not wiggle toes on command. Has tolerated pressure support ventilation 01/31 overnight. On Rocephin for sacral wound. On Zyvox for MRSA pneumonia. Review of systems relevant to events:: Respiratory: COVID-19 pneumonia Renal: End-stage renal disease Neurological/musculoskeletal: Weakness Reason for ICU Addmission:: Acute respiratory distress and need for intubation - Medications: Medications reviewed and adjusted accordingly: Yes Physical Exam Vital Signs: Temp Pulse Resp BP Pulse Ox 99.1 F 110 H 22 H 144/52 H 100 03/04/20 08:00 03/04/20 10:00 03/04/20 10:00 03/04/20 10:00 03/04/20 10:00 Pulse Oximeter Nocturnal Start: 02/08/20 13:55 Freq: RTQ4 Status: Complete Protocol: Document 02/09/20 04:00 LRO (Rec: 02/09/20 05:38 LRO [id number]) Nocturnal Pulse Oximetry Equipment Usage Equipment in Use Oxygen Delivery Method (includes room Room Air air) O2 Sat by Pulse Oximetry (92-100) 95 Continuous SpO2 Machine # 2 Pulse Oximeter Nocturnal Start: 02/10/20 1 1:39 Freq: RTQ4 Status: Complete Protocol: Document 02/11/20 04:06 PMU (Rec: 02/11/20 05:06 PMU [email or web address]) Nocturnal Pulse Oximetry Equipment Usage Equipment in Use Oxygen Delivery Method (includes room Room Air air) O2 Sat by Pulse Oximetry (92-100) 93 Continuous SpO2 Machine # N2 Intake & Output 03/03/20 03/04/20 03/05/20 06:59 06:59 06:59 Intake Total 1609 1540 Output Total 3983 75 0 Balance -2374 1465 0 Weight 113.8 kg 115.7 kg Weight/Height Weight 115.7 kg Height 1.75 m General appearance: PRESENT: no acute distress, obese, well-developed, well- nourished Head exam: PRESENT: atraumatic, normocephalic Mouth exam: PRESENT: moist, tongue midline Respiratory exam: PRESENT: clear to auscultation kevyn. ABSENT: rales, rhonchi, wheezes Cardiovascular exam: PRESENT: RRR. ABSENT: diastolic murmur, rubs, systolic murmur Pulses: PRESENT: normal dorsalis pedis pul GI/Abdominal exam: PRESENT: normal bowel sounds, soft. ABSENT: distended, guarding, mass, organolmegaly, rebound, tenderness Gentrourinary exam: PRESENT: indwelling catheter Extremities exam: PRESENT: full ROM, pedal edema, +2 edema. ABSENT: calf tenderness, clubbing Musculoskeletal exam: PRESENT: normal inspection. ABSENT: deformity Neurological exam: PRESENT: alert, CN II-XII grossly intact, motor sensory deficit - Motor: 3/5 at right upper extremity, 2/5 at left upper extremity, 1/5 at the both lower extremities. Psychiatric exam: ABSENT: agitated, anxious Skin exam: PRESENT: other - Eschar at the left ear, lip and right ear. Deep tissue injury on the left heel and right heel. Sacral decubitus ulcer Tubes/Lines: PRESENT: Endotracheal Tube, Central Line - Right IJ, Dialysis catheter - Left femoral Laboratory/Radiographs Laboratory Results: 03/04/20 04:00 03/04/20 04:00 03/03/20 03/03/20 03/03/20 17:20 17:20 20:30 WBC RBC Hgb Hct MCV MCH MCHC RDW Plt Count Carbonic Acid HCO3/H2CO3 Ratio ABG pH ABG pCO2 ABG pO2 ABG HCO3 ABG O2 Saturation ABG Base Excess FiO2 Sodium 130.3 L Potassium 4.1 Chloride 93 L Carbon Dioxide 22 Anion Gap 15 BUN 99 H Creatinine 3.57 H Est GFR ( Amer) 21 L Glucose 136 H Calcium 7.1 L Ionized Calcium Tessa 1.04 L Phosphorus Magnesium 2.2 Total Bilirubin AST Alkaline Phosphatase Total Protein Albumin 03/04/20 03/04/20 03/04/20 04:00 04:00 04:00 WBC 4.3 RBC 2.73 L Hgb 8.5 L Hct 25.0 L MCV 92 MCH 31.3 MCHC 34.1 RDW 16.5 H Plt Count 148 L Carbonic Acid HCO3/H2CO3 Ratio ABG pH ABG pCO2 ABG pO2 ABG HCO3 ABG O2 Saturation ABG Base Excess FiO2 Sodium 129.7 L Potassium 4.2 Chloride 92 L Carbon Dioxide 21 L Anion Gap 17 BUN 104 H Creatinine 3.82 H Est GFR ( Amer) 19 L Glucose 94 Calcium 7.3 L Ionized Calcium Tessa 1.06 L Phosphorus Magnesium Total Bilirubin 0.7 AST 286 H Alkaline Phosphatase 201 H Total Protein 4.3 L Albumin 1.9 L 03/04/20 03/04/20 04:00 10:00 WBC RBC Hgb Hct MCV MCH MCHC RDW Plt Count Carbonic Acid Cancelled HCO3/H2CO3 Ratio Cancelled ABG pH Cancelled ABG pCO2 Cancelled ABG pO2 Cancelled ABG HCO3 Cancelled ABG O2 Saturation Cancelled ABG Base Excess Cancelled FiO2 Cancelled Sodium Potassium Chloride Carbon Dioxide Anion Gap BUN Creatinine Est GFR ( Amer) Glucose Calcium Ionized Calcium Tessa Phosphorus 5.2 H Magnesium 2.2 Total Bilirubin AST Alkaline Phosphatase Total Protein Albumin 02/08/20 02/08/20 02/21/20 09:49 13:11 04:50 Troponin I 0.160 0.155 NT-Pro-B Natriuret Pep 5540 H 31363 H 02/26/20 05:35 Troponin I NT-Pro-B Natriuret Pep 07329 H Impressions: Hip/Pelvis X-Ray 02/08/20 00:00 IMPRESSION: No acute fracture. Severe degenerative changes of the left hip. Knee X-Ray 02/08/20 00:00 IMPRESSION: NEGATIVE STUDY OF THE RIGHT KNEE. NO RADIOGRAPHIC EVIDENCE OF ACUTE INJURY. Head CT 02/08/20 10:19 IMPRESSION: MILD CHRONIC CHANGES OF ATROPHY AND MICROVASCULAR ISCHEMIA. NO ACUTE PROCESS. EVIDENCE OF ACUTE STROKE: NO. Renal Ultrasound 02/21/20 00:00 IMPRESSION: Increased echogenicity of the renal parenchyma suggestive of underlying chronic medical renal disease. There is no hydronephrosis. There is a Ryan catheter within the urinary bladder. Chest X-Ray 03/04/20 04:00 IMPRESSION: Unchanged radiographic appearance of the chest. All labs, radiographs, diagnostic studies and EKGs were personally reviewed: Yes In addition, reports of radiographic and diagnostic studies were read: Yes Assessment and Plan - Diagnosis (1) Acute respiratory failure due to COVID-19 Is this a current diagnosis for this admission?: Yes Plan: Continue pressure support ventilation. Check ABG. Continue budesonide. Treated with hydroxychloroquine/dexamethasone. Will need tracheostomy. Need to find a surgeon who will perform tracheostomy on COVID positive patient. Consult PT/OT. (2) MRSA pneumonia Qualifiers: Laterality: bilateral Lung location: unspecified part of lung Qualified Code(s): J15.212 - Pneumonia due to Methicillin resistant Staphylococcus aureus Is this a current diagnosis for this admission?: Yes Plan: Continue linezolid. (3) Nonischemic cardiomyopathy Is this a current diagnosis for this admission?: Yes Plan: LVEF 25-30% with grade 3 diastolic dysfunction on 2D echo (02/10/2020). (4) Atrial fibrillation Qualifiers: Atrial fibrillation type: persistent (not longstanding) Qualified Code(s): I48.19 - Other persistent atrial fibrillation; I48.1 - Persistent atrial fibrillation Is this a current diagnosis for this admission?: Yes Plan: Rate control with diltiazem. Off heparin infusion due to hemoptysis. Monitor hemoglobin. On heparin at DVT prophylaxis dose. Of note, the patient is apparently on Toprol-XL 50 mg p.o. daily at home in addition to Entresto. There are no calcium channel blockers on his home medications. In light of the difficulties we are experiencing with hypocalcemia in this patient, I will try discontinuing his diltiazem infusion and using beta- blockers and other alternative medications for rate control. (5) Hypocalcemia Is this a current diagnosis for this admission?: Yes Plan: Low calcium, elevated phosphorus, elevated PTH. 25-hydroxy vitamin D level low. 1,25-dihydroxy vitamin D level pending. Lipase within normal limits. Calcium supplementation with calcium acetate and calcium gluconate. Hold zinc. (6) Hyponatremia Is this a current diagnosis for this admission?: Yes (7) Occult blood in stools Is this a current diagnosis for this admission?: Yes (8) Normocytic anemia Is this a current diagnosis for this admission?: Yes (9) CKD (chronic kidney disease) stage 5, GFR less than 15 ml/min Is this a current diagnosis for this admission?: Yes (10) Decubitus ulcer of sacral region, unstageable Is this a current diagnosis for this admission?: Yes Plan: Present on admission. Continue Rocephin. Will need wound care consult. (11) Abnormal LFTs Is this a current diagnosis for this admission?: Yes (12) Vitamin D deficiency Is this a current diagnosis for this admission?: Yes Plan: Increase vitamin D3 to 2000 units NG 3 times daily Critical Time Critical Time (minutes): 60 Level of Care: ICU -: 1. The care of a critical patient is a dynamic process. This note is a personal banking representative synopsis but static in nature. The timeframe for treatments given in order is not necessarily the actual time these treatments may have been done. 2. This patient requires critical care secondary to ongoing requirements for therapy not offered or safe outside the critical care environment. Transfer to a lower level of care will result in altered life or limb morbidity and mortality. 3. Multidisciplinary rounds completed. 4. ABCDE bundle addressed.
[2020-03-04] MEDS: ATORVASTATIN CALCIUM 40 MG TABLET NG SCH (22:20)
[2020-03-05] MEDS: INSULIN LISPRO 100 UNIT/ML 3 ML VIAL SUBCUT SCH ×4 (01:32→17:58)
[2020-03-05] MEDS ORDERED: CALCIUM GLUC IN NACL, ISO-OSM 1 GM/50 ML RTUPB IV ONE (03:15)
[2020-03-05 05:15] LABS: ABSOLUTE LYMPHOCYTES (AUTO) 0.3 10^3/uL (0.5-4.7); ABSOLUTE MONOCYTES (AUTO) 0.3 10^3/uL (0.1-1.4); ABSOLUTE NEUT (AUTO) 2.7 10^3/uL (1.7-8.2); BASOPHILS % (AUTO) 0.5 % (0-2); EOSINOPHILS % (AUTO) 0.8 % (0-6); HEMATOCRIT 28.5 % (37.9-51.0); HEMOGLOBIN 9.6 g/dL (13.5-17.0); LYMPHOCYTES % (AUTO) 8.2 % (13-45); MEAN CORPUSCULAR HEMOGLOBIN 30.8 pg (27.0-33.4); MEAN CORPUSCULAR HGB CONC 33.6 g/dL (32.0-36.0); MEAN CORPUSCULAR VOLUME 92 fl (80-97); MONOCYTES % (AUTO) 8.3 % (3-13); PLATELET COUNT 173 10^3/uL (150-450); RED CELL DISTRIBUTION WIDTH 16.7 % (11.5-14.0); SEGMENTED NEUTROPHILS % (AUTO) 82.2 % (42-78); TOTAL CELLS COUNTED % (AUTO) 100 %; WHITE BLOOD COUNT 3.2 10^3/uL (4.0-10.5)
[2020-03-05 05:22] LABS: ANION GAP 17 (5-19); BLOOD UREA NITROGEN 82 mg/dL (7-20); CARBON DIOXIDE 21 mmol/L (22-30); CHLORIDE 93 mmol/L (98-107); GLUCOSE 102 mg/dL (75-110)
[2020-03-05] MEDS: DILTIAZEM HCL 90 MG TABLET NG SCH ×3 (06:05→17:59)
[2020-03-05] MEDS: CALCIUM ACETATE 667 MG CAPSULE PO SCH ×3 (06:06→21:10)
[2020-03-05] MEDS: HEPARIN SOD (PORCINE) 5,000 UNIT/ML 1 ML VIAL SUBCUT SCH ×3 (06:07→21:09)
[2020-03-05] MEDS: ASCORBIC ACID 500 MG TABLET NG SCH ×2 (10:11→17:59)
[2020-03-05] MEDS: ASPIRIN 81 MG TABLET, CHEWABLE NG SCH (10:11)
[2020-03-05] MEDS: AMINO AC/PROTEIN HYDR/WHEY PRO 11 GM/45 ML PKT NG SCH ×3 (10:11→17:59)
[2020-03-05] MEDS: LINEZOLID 600 MG/300 ML RTUPB IV SCH ×2 (10:11→21:09)
[2020-03-05] MEDS: CHOLECALCIFEROL (D3) 1,000 UNIT (25 MCG) TABLET NG SCH ×3 (10:11→17:59)
[2020-03-05] MEDS: CALCITRIOL 1 MCG/ML ORAL SOLN 15 ML NG SCH (10:12)
[2020-03-05] MEDS: SODIUM BICARBONATE 650 MG TABLET NG SCH ×2 (10:12→21:10)
[2020-03-05] MEDS: FLUTICASONE NASAL SPRAY 50 MCG/SPRY 120 SPRAY/16 GM NASL SCH ×2 (10:17→21:10)
[2020-03-05] MEDS: INSULIN GLARGINE,HUM.REC.ANLOG 1,000 UNIT/10 ML VIAL SUBCUT SCH (10:17)
[2020-03-05] MEDS: CEFTRIAXONE 1 GM/D5W RTU 1 GM/50 ML RTUPB IV SCH (11:43)
[2020-03-05] MEDS: PANTOPRAZOLE SODIUM 40 MG VIAL IV SCH (11:44)
[2020-03-05] MEDS: CALCIUM GLUCONATE 1 GM/NS 50 ML RTU IV SCH ×2 (13:36→21:09)
[2020-03-05] MEDS ORDERED: ALBUMIN HUMAN 12.5 GM/50 ML RTUINJ IV SCH (18:00)
--- NOTE | 2020-03-05 18:19 | PDOC CRITICAL CARE PROG REPORT ---
General Date:: 03/05/20 ICU Day:: 23 Ventilator Day:: Hospital Day:: 27 Resuscitation Status: Full Code Events in the past 12 to 24 Hours:: This 69-year-old male was admitted on 02/08/2020 with dyspnea and leg weakness. He reported falling out of his truck a few days prior to presentation. He transferred to the ICU on 02/12/2020 after requiring endotracheal intubation due to acute respiratory failure secondary to COVID-19 pneumonia. 03/02: Remains intubated. On pressure support ventilation. Actually, from a respiratory mechanics standpoint looks good; however, he has copious purulent secretions emanating from the ET tube circuit. Trach aspirate (02/20) isolated MRSA and yeast. Sacral decubitus is isolating E. coli and other gram-negative rods. On linezolid for MRSA coverage. Not on antibiotic therapy for gram- negative rods. 03/03: Remains intubated. Restarted heparin infusion yesterday; however, the patient had a bout of hemoptysis, prompting immediate discontinuation. He remains hemodynamically stable. He was changed from pressure support ventilation back to SIMV PRVC plus pressure support for the evening. Sacral wound isolated E coli and E cloacae. Previously, aspirate isolated MRSA. Now on Rocephin and Zyvox. He is awake. Off sedation. However, he does not follow commands. 03/04: Remains intubated. Continues to need calcium repletion. Notably, the patient does demonstrate more motor activity today than on previous exams. Awake, alert. Squeezes right hand briskly. Weak magnetic locater strength in the left hand but much improved. Does not wiggle toes on command. Has tolerated pressure support ventilation 01/31 overnight. On Rocephin for sacral wound. On Zyvox for MRSA pneumonia. 03/05: Remains intubated. Calcium slowly improving. Increased vitamin D administration yesterday in light of low vitamin D levels (in spite of daily supplement). Seems to be more interactive. Muscle strength trivially improved. Awake, alert. Continues to squeeze right hand. Weak magnetic locater strength in the left hand. Does not wiggle toes on command. Still on pressure support ventilation. On Rocephin and Zyvox. Case discussed with Dr. Talley, in anticipation of tracheostomy and sacral wound debridement. Review of systems relevant to events:: Respiratory: COVID-19 pneumonia Renal: End-stage renal disease Neurological/musculoskeletal: Weakness Reason for ICU Addmission:: Acute respiratory distress and need for intubation - Medications: Medications reviewed and adjusted accordingly: Yes Physical Exam Vital Signs: Temp Pulse Resp BP Pulse Ox 99.9 F 119 H 28 H 153/57 H 96 03/05/20 11:09 03/05/20 14:00 03/05/20 14:09 03/05/20 14:09 03/05/20 14:09 Pulse Oximeter Nocturnal Start: 02/08/20 13:55 Freq: RTQ4 Status: Complete Protocol: Document 02/09/20 04:00 LRO (Rec: 02/09/20 05:38 LRO [id number]) Nocturnal Pulse Oximetry Equipment Usage Equipment in Use Oxygen Delivery Method (includes room Room Air air) O2 Sat by Pulse Oximetry (92-100) 95 Continuous SpO2 Machine # 2 Pulse Oximeter Nocturnal Start: 02/10/20 11:39 Freq: RTQ4 Status: Complete Protocol: Document 02/11/20 04:06 PMU (Rec: 02/11/20 05:06 PMU [email or web address]) Nocturnal Pulse Oximetry Equipment Usage Equipment in Use Oxygen Delivery Method (includes room Room Air air) O2 Sat by Pulse Oximetry (92-100) 93 Continuous SpO2 Machine # N2 Intake & Output 03/04/20 03/05/20 03/06/20 06:59 06:59 06:59 Intake Total 1590 2571 10 Output Total 75 5540 10 Balance 1515 -9713 0 Weight 115.7 kg 112.3 kg Weight/Height Weight 112.3 kg Height 1.75 m General appearance: PRESENT: no acute distress, obese Head exam: PRESENT: atraumatic Eye exam: PRESENT: conjunctiva pink, EOMI, PERRLA. ABSENT: scleral icterus Mouth exam: PRESENT: moist, tongue midline Neck exam: ABSENT: carotid bruit, JVD, lymphadenopathy, thyromegaly Respiratory exam: PRESENT: rales, rhonchi. ABSENT: wheezes Cardiovascular exam: PRESENT: RRR. ABSENT: diastolic murmur, rubs, systolic murmur Pulses: PRESENT: normal dorsalis pedis pul GI/Abdominal exam: PRESENT: normal bowel sounds, soft. ABSENT: distended, guarding, mass, organolmegaly, rebound, tenderness Gentrourinary exam: PRESENT: indwelling catheter Extremities exam: PRESENT: full ROM, pedal edema. ABSENT: calf tenderness, clubbing Musculoskeletal exam: PRESENT: normal inspection. ABSENT: deformity Neurological exam: PRESENT: awake, CN II-XII grossly intact, motor sensory deficit. ABSENT: reflexes normal Psychiatric exam: ABSENT: agitated, anxious Skin exam: PRESENT: other - Large sacral decubitus Tubes/Lines: PRESENT: Central Line - Right IJ, Dialysis catheter - Left femoral Laboratory/Radiographs Laboratory Results: 03/05/20 04:25 03/05/20 04:25 03/04/20 03/04/20 03/04/20 15:30 17:28 17:28 WBC RBC Hgb Hct MCV MCH MCHC RDW Plt Count Seg Neutrophils % Sodium 130.7 L Potassium 3.9 Chloride 94 L Carbon Dioxide 22 Anion Gap 15 BUN 70 H Creatinine 2.44 H Est GFR ( Amer) 32 L Glucose 104 Calcium 7.5 L 7.6 L Ionized Calcium Tessa 1.00 L Phosphorus Magnesium 2.1 03/05/20 03/05/20 03/05/20 01:20 04:25 04:25 WBC 3.2 L RBC 3.10 L Hgb 9.6 L Hct 28.5 L MCV 92 MCH 30.8 MCHC 33.6 RDW 16.7 H Plt Count 173 Seg Neutrophils % 82.2 H Sodium 131.0 L Potassium 4.0 Chloride 93 L Carbon Dioxide 21 L Anion Gap 17 BUN 82 H Creatinine 2.83 H Est GFR ( Amer) 27 L Glucose 102 Calcium 8.0 L Ionized Calcium Tessa 1.06 L Phosphorus 4.0 Magnesium 2.1 03/05/20 10:10 WBC RBC Hgb Hct MCV MCH MCHC RDW Plt Count Seg Neutrophils % Sodium Potassium Chloride Carbon Dioxide Anion Gap BUN Creatinine Est GFR ( Amer) Glucose Calcium Ionized Calcium Tessa 1.06 L Phosphorus Magnesium 02/08/20 02/08/20 02/21/20 09:49 13:11 04:50 Troponin I 0.160 0.155 NT-Pro-B Natriuret Pep 5540 H 36926 H 02/26/20 05:35 Troponin I NT-Pro-B Natriuret Pep 53859 H Impressions: Hip/Pelvis X-Ray 02/08/20 00:00 IMPRESSION: No acute fracture. Severe degenerative changes of the left hip. Knee X-Ray 02/08/20 00:00 IMPRESSION: NEGATIVE STUDY OF THE RIGHT KNEE. NO RADIOGRAPHIC EVIDENCE OF ACUTE INJURY. Head CT 02/08/20 10:19 IMPRESSION: MILD CHRONIC CHANGES OF ATROPHY AND MICROVASCULAR ISCHEMIA. NO ACUTE PROCESS. EVIDENCE OF ACUTE STROKE: NO. Renal Ultrasound 02/21/20 00:00 IMPRESSION: Increased echogenicity of the renal parenchyma suggestive of underlying chronic medical renal disease. There is no hydronephrosis. There is a Ryan catheter within the urinary bladder. Chest X-Ray 03/04/20 04:00 IMPRESSION: Unchanged radiographic appearance of the chest. All labs, radiographs, diagnostic studies and EKGs were personally reviewed: Yes In addition, reports of radiographic and diagnostic studies were read: Yes Assessment and Plan - Diagnosis (1) Acute respiratory failure due to COVID-19 Is this a current diagnosis for this admission?: Yes Plan: Continue pressure support ventilation. Check ABG. Continue budesonide. Treated with hydroxychloroquine/dexamethasone. Will need tracheostomy. Case discussed with Dr. Talley. Repeat COVID-19 testing today. Consult PT/OT. (2) MRSA pneumonia Qualifiers: Laterality: bilateral Lung location: unspecified part of lung Qualified Code(s): J15.212 - Pneumonia due to Methicillin resistant Staphylococcus aureus Is this a current diagnosis for this admission?: Yes Plan: Continue linezolid. (3) Nonischemic cardiomyopathy Is this a current diagnosis for this admission?: Yes Plan: LVEF 25-30% with grade 3 diastolic dysfunction on 2D echo (02/10/2020). (4) Atrial fibrillation Qualifiers: Atrial fibrillation type: persistent (not longstanding) Qualified Code(s): I48.19 - Other persistent atrial fibrillation; I48.1 - Persistent atrial fibrillation Is this a current diagnosis for this admission?: Yes Plan: Rate control with diltiazem. Off heparin infusion due to hemoptysis. Monitor hemoglobin. On heparin at DVT prophylaxis dose. Of note, the patient is apparently on Toprol-XL 50 mg p.o. daily at home in addition to Entresto. There are no calcium channel blockers on his home medications. In light of the difficulties we are experiencing with hypocalcemia in this patient, I will try discontinuing his diltiazem infusion and using beta- blockers and other alternative medications for rate control. (5) Hypocalcemia Is this a current diagnosis for this admission?: Yes Plan: Low calcium, elevated phosphorus, elevated PTH. 25-hydroxy vitamin D and 1,25-dihydroxy vitamin D level low. Lipase within normal limits. Calcium supplementation with calcium acetate. Will add calcium gluconate 1 g IV every 8 hours. Hold zinc. (6) Hyponatremia Is this a current diagnosis for this admission?: Yes Plan: Continue salt tablets. (7) Occult blood in stools Is this a current diagnosis for this admission?: Yes (8) CKD (chronic kidney disease) stage 5, GFR less than 15 ml/min Is this a current diagnosis for this admission?: Yes Plan: Hemodialysis per nephrology. Nephrology assistance appreciated. (9) Decubitus ulcer of sacral region, unstageable Is this a current diagnosis for this admission?: Yes Plan: Present on admission. Continue Rocephin. Case discussed with Dr. Talley (General surgery consultation). (10) Vitamin D deficiency Is this a current diagnosis for this admission?: Yes Plan: Vitamin D3 2000 units NG 3 times daily (11) Abnormal LFTs Is this a current diagnosis for this admission?: Yes (12) Normocytic anemia Is this a current diagnosis for this admission?: Yes Critical Time Critical Time (minutes): 60 Level of Care: ICU -: 1. The care of a critical patient is a dynamic process. This note is a territory service representative synopsis but static in nature. The timeframe for treatments given in order is not necessarily the actual time these treatments may have been done. 2. This patient requires critical care secondary to ongoing requirements for therapy not offered or safe outside the critical care environment. Transfer to a lower level of care will result in altered life or limb morbidity and mortality. 3. Multidisciplinary rounds completed. 4. ABCDE bundle addressed.
[2020-03-05] MEDS: ATORVASTATIN CALCIUM 40 MG TABLET NG SCH (21:10)
[2020-03-05] MEDS: METOPROLOL TARTRATE PF/INJ 5 MG/5 ML SDV IV PRN (21:18)
[2020-03-06] MEDS: INSULIN LISPRO 100 UNIT/ML 3 ML VIAL SUBCUT SCH ×4 (00:04→17:41)
[2020-03-06] MEDS: DILTIAZEM HCL 90 MG TABLET NG SCH ×5 (00:04→23:34)
[2020-03-06] MEDS: ALBUMIN HUMAN 25 GM/100 ML RTUINJ IV SCH ×4 (00:04→13:19)
[2020-03-06 04:38] LABS: ABSOLUTE LYMPHOCYTES (AUTO) 0.2 10^3/uL (0.5-4.7); ABSOLUTE MONOCYTES (AUTO) 0.3 10^3/uL (0.1-1.4); ARTERIAL BLOOD BASE EXCESS -2.5 mmol/L; ARTERIAL BLOOD H2CO3 0.96 mmol/L (1.05-1.35); ARTERIAL BLOOD HCO3 21.1 mmol/L (20-24); ARTERIAL BLOOD PCO2 31.9 mmHg (35-45); ARTERIAL BLOOD PH 7.44 (7.35-7.45); ARTERIAL BLOOD PO2 87.1 mmHg (80-100); ARTERIAL BLOOD TOTAL CO2 22.1 mmol/L (23-27); BASOPHILS % (AUTO) 0.6 % (0-2); EOSINOPHILS % (AUTO) 1.5 % (0-6); HEMATOCRIT 23.8 % (37.9-51.0); LYMPHOCYTES % (AUTO) 7.1 % (13-45); MEAN CORPUSCULAR HEMOGLOBIN 30.9 pg (27.0-33.4); MEAN CORPUSCULAR HGB CONC 33.7 g/dL (32.0-36.0); MEAN CORPUSCULAR VOLUME 92 fl (80-97); MONOCYTES % (AUTO) 10.5 % (3-13); PLATELET COUNT 163 10^3/uL (150-450); RED CELL DISTRIBUTION WIDTH 16.4 % (11.5-14.0); SEGMENTED NEUTROPHILS % (AUTO) 80.3 % (42-78); TOTAL CELLS COUNTED % (AUTO) 100 %; WHITE BLOOD COUNT 2.5 10^3/uL (4.0-10.5)
[2020-03-06 04:39] LABS: ARTERIAL BLOOD FIO2 35%
[2020-03-06 05:00] LABS: ALBUMIN 2.3 g/dL (3.5-5.0); ALKALINE PHOSPHATASE 167 U/L (38-126); ANION GAP 15 (5-19); ASPARTATE AMINO TRANSFERASE 146 U/L (17-59); BILIRUBIN,DIRECT 0.6 mg/dL (0.0-0.4); BILIRUBIN,TOTAL 0.6 mg/dL (0.2-1.3); BLOOD UREA NITROGEN 95 mg/dL (7-20); CALCIUM 8.2 mg/dL (8.4-10.2); CARBON DIOXIDE 23 mmol/L (22-30); CHLORIDE 92 mmol/L (98-107); GLUCOSE 82 mg/dL (75-110); PHOSPHORUS 3.9 mg/dL (2.5-4.5); POTASSIUM 3.9 mmol/L (3.6-5.0); TOTAL PROTEIN 4.7 g/dL (6.3-8.2)
[2020-03-06] MEDS ORDERED: EPOETIN ALFA-EPBX 2,000 UNIT, EPOETIN ALFA-EPBX 3,000 UNIT, EPOETIN ALFA-EPBX 20,000 UN... IV PRN ×4 (05:00)
[2020-03-06] MEDS: CALCIUM GLUCONATE 1 GM/NS 50 ML RTU IV SCH ×3 (06:03→21:19)
[2020-03-06] MEDS: CALCIUM ACETATE 667 MG CAPSULE PO SCH ×3 (06:04→21:21)
[2020-03-06] MEDS: HEPARIN SOD (PORCINE) 5,000 UNIT/ML 1 ML VIAL SUBCUT SCH ×3 (06:04→21:20)
[2020-03-06] MEDS ORDERED: CALCIUM GLUC IN NACL, ISO-OSM 1 GM/50 ML RTUPB IV ONE (06:34)
--- NOTE | 2020-03-06 08:02 | PDOC CONSULTATION ---
Consultation Consult Date: 03/06/20 Provider Consulted: SURGICAL SURGICALIST MD Consult reason:: vent dependence, needs trach History of Present Illness Admission Date/PCP: 02/08/20 13:52 [facility] History of Present Illness: INES TURNER JR is a 69 year old male who has required ventilator assistance for several weeks now. The patient is COVID-19 positive, and is in need of a tracheostomy. Surgery has been consulted to provide the patient with a tracheostomy, to help wean him from his ventilator. Currently the patient is intubated, and a review of systems is unobtainable. Medical history is obtained from the nursing staff and the medical record. Past Medical History Cardiac Medical History: Reports: Congestive Heart Failure, Coronary Artery Disease, Hypertension Denies: Atrial Fibrillation, DVT, Myocardial Infarction, Hyperlipidema, Pulmo nary Embolism Pulmonary Medical History: Reports: Respiratory Failure, Sleep Apnea Denies: Asthma, Bronchitis, Chronic Obstructive Pulmonary Disease (COPD), Pneumonia Neurological Medical History: Denies: Seizures Endocrine Medical History: Denies: Diabetes Mellitus Type 1, Diabetes Mellitus Type 2, Hyperthyroidism, Hypothyroidism GI Medical History: Denies: Cirrhosis, Crohn's Disease, Gastroesophageal Reflux Disease, Hepatitis, Ulcerative Colitis Musculoskeltal Medical History: Denies: Arthritis, Gout Skin Medical History: Denies: Eczema, Psoriasis Psychiatric Medical History: Denies: Depression Hematology: Denies: Anemia, Bleeding Tendencies Past Surgical History Past Surgical History: Reports: Cardiac Catheterization, Coronary Artery Bypass Graft Social History Smoking Status: Former Smoker Last Time Smoked: 1999 Frequency of Alcohol Use: None Hx Recreational Drug Use: No Drugs: None Hx Prescription Drug Abuse: No - Advance Directive Resuscitation Status: Full Code Family History Family History: DM, Hypertension. denies: CAD, Malignancy Parental Family History Reviewed: Yes Children Family History Reviewed: Yes Sibling(s) Family History Reviewed.: Yes Medication/Allergy Home Medications: Aspirin [Aspirin 81 mg Chewable Tablet] 81 mg PO DAILY 01/29/20 Clopidogrel Bisulfate [Plavix 75 mg Tablet] 75 mg PO DAILY #30 tablet 02/03/20 Metoprolol Succinate [Toprol Xl 50 mg Tab.sr] 50 mg PO DAILY #30 tab.sr.24h 02/03/20 Sacubitril/Valsartan [Entresto 49 mg/51 mg Tablet] 1 tab PO Q12 #60 tablet 02/03/20 Allergies/Adverse Reactions: No Known Allergies Allergy (Verified 02/08/20 10:21) Review of Systems ROS unobtainable: Due to endotracheal tube Physical Exam Vital Signs: Temp Pulse Resp BP Pulse Ox 99.0 F 132 H 25 H 147/50 H 97 03/06/20 06:10 03/05/20 23:54 03/06/20 06:10 03/06/20 06:10 03/06/20 06:10 Pulse Oximeter Nocturnal Start: 02/08/20 13:55 Freq: RTQ4 Status: Complete Protocol: Document 02/09/20 04:00 LRO (Rec: 02/09/20 05:38 LRO [email or web address]) Nocturnal Pulse Oximetry Equipment Usage Equipment in Use Oxygen Delivery Method (includes room Room Air air) O2 Sat by Pulse Oximetry (92-100) 95 Continuous SpO2 Machine # 2 Pulse Oximeter Nocturnal Start: 02/10/20 11:39 Freq: RTQ4 Status: Complete Protocol: Document 02/11/20 04:06 PMU (Rec: 02/11/20 05:06 PMU [email or web address]) Nocturnal Pulse Oximetry Equipment Usage Equipment in Use Oxygen Delivery Method (includes room Room Air air) O2 Sat by Pulse Oximetry (92-100) 93 Continuous SpO2 Machine # N2 Intake & Output 03/04/20 03/05/20 03/06/20 06:59 06:59 06:59 Intake Total 1590 2571 1010 Output Total 75 5540 211 Balance 1518 -6991 799 Weight 115.7 kg 112.3 kg 112.9 kg General appearance: PRESENT: no acute distress, disheveled, other - On the vent Head exam: PRESENT: atraumatic Eye exam: ABSENT: scleral icterus Mouth exam: PRESENT: neck supple Neck exam: ABSENT: thyromegaly, tracheal deviation, tracheostomy Respiratory exam: PRESENT: other - Coarse breath sounds bilaterally Cardiovascular exam: PRESENT: tachycardia Pulses: PRESENT: normal radial pulses GI/Abdominal exam: PRESENT: soft. ABSENT: distended, tenderness Rectal exam: PRESENT: deferred Extremities exam: ABSENT: clubbing Psychiatric exam: ABSENT: agitated, anxious Focused psych exam: ABSENT: restlessness Skin exam: PRESENT: other - Sacral decubitus ulcer present with some necrotic tissue present. Results Laboratory Results: 03/06/20 04:20 03/06/20 04:20 03/05/20 03/06/20 03/06/20 10:10 04:20 04:20 WBC RBC Hgb Hct MCV MCH MCHC RDW Plt Count Seg Neutrophils % Carbonic Acid 0.96 L HCO3/H2CO3 Ratio 21:1 ABG pH 7.44 ABG pCO2 31.9 L ABG pO2 87.1 ABG HCO3 21.1 ABG O2 Saturation 97.0 ABG Base Excess -2.5 FiO2 35% Sodium 130.0 L Potassium 3.9 Chloride 92 L Carbon Dioxide 23 Anion Gap 15 BUN 95 H Creatinine 3.38 H Est GFR ( Amer) 22 L Glucose 82 Calcium 8.2 L Ionized Calcium Tessa 1.06 L 1.10 L Phosphorus 3.9 Magnesium 2.0 Total Bilirubin 0.6 AST 146 H Alkaline Phosphatase 167 H Total Protein 4.7 L Albumin 2.3 L 03/06/20 04:20 WBC 2.5 L RBC 2.60 L Hgb 8.0 L Hct 23.8 L MCV 92 MCH 30.9 MCHC 33.7 RDW 16.4 H Plt Count 163 Seg Neutrophils % 80.3 H Carbonic Acid HCO3/H2CO3 Ratio ABG pH ABG pCO2 ABG pO2 ABG HCO3 ABG O2 Saturation ABG Base Excess FiO2 Sodium Potassium Chloride Carbon Dioxide Anion Gap BUN Creatinine Est GFR ( Amer) Glucose Calcium Ionized Calcium Tessa Phosphorus Magnesium Total Bilirubin AST Alkaline Phosphatase Total Protein Albumin 02/08/20 02/08/20 02/21/20 09:49 13:11 04:50 Troponin I 0.160 0.155 NT-Pro-B Natriuret Pep 5540 H 89840 H 02/26/20 05:35 Troponin I NT-Pro-B Natriuret Pep 84378 H Impressions: Hip/Pelvis X-Ray 02/08/20 00:00 IMPRESSION: No acute fracture. Severe degenerative changes of the left hip. Knee X-Ray 02/08/20 00:00 IMPRESSION: NEGATIVE STUDY OF THE RIGHT KNEE. NO RADIOGRAPHIC EVIDENCE OF ACUTE INJURY. Head CT 02/08/20 10:19 IMPRESSION: MILD CHRONIC CHANGES OF ATROPHY AND MICROVASCULAR ISCHEMIA. NO ACUTE PROCESS. EVIDENCE OF ACUTE STROKE: NO. Renal Ultrasound 02/21/20 00:00 IMPRESSION: Increased echogenicity of the renal parenchyma suggestive of underlying chronic medical renal disease. There is no hydronephrosis. There is a Ryan catheter within the urinary bladder. Assessment & Plan - Diagnosis (1) COVID-19 virus infection Is this a current diagnosis for this admission?: Yes (2) Acute respiratory failure with hypoxia Is this a current diagnosis for this admission?: Yes - Plan Summary Plan Summary: This is a 69-year-old male with COVID-19 infection, respiratory failure, and now dependence on a ventilator. The patient will require tracheostomy in an effort to wean him from the ventilator. His last COVID 19 test was positive. He has been retested. I will await these results. If his COVID-19 test returns as negative, plan to perform his tracheostomy in the operating room. If his recent COVID-19 test returns negative, then we will plan to perform tracheostomy in the intensive care unit, under negative pressure. Plan to undertake tracheostomy next 03/10/2020. The patient's sacral decubitus can be addressed at that time. Continue with local wound care for now, aggressive turning regimen, and nutritional support.
--- NOTE | 2020-03-06 08:45 | RADIOLOGY REPORT (SQ) ---
EXAM DESCRIPTION: CHEST SINGLE VIEW IMAGES COMPLETED DATE/TIME: 03/06/2020 6:13 am REASON FOR STUDY: ETT tube COMPARISON: 03/04/2020 EXAM PARAMETERS: NUMBER OF VIEWS: One view. TECHNIQUE: Single frontal radiographic view of the chest acquired. RADIATION DOSE: NA LIMITATIONS: None. FINDINGS: LUNGS AND PLEURA: Stable pulmonary exam demonstrating multifocal airspace opacities in a p redominantly basilar distribution. Right lung base pleural effusion. No pneumothorax. MEDIASTINUM AND HILAR STRUCTURES: Stable. HEART AND VASCULAR STRUCTURES: Stable. BONES: No acute findings. HARDWARE: Midline surgical changes. Stable position and appearance of the endotracheal tube, enteric tube, and right internal jugular vascular access catheter. OTHER: No other significant finding. IMPRESSION: 1. Stable pulmonary exam. 2. Stable lines and tubes. TECHNICAL DOCUMENTATION: JOB ID: [id number] 2010 [email or web address] All Rights Reserved Reading location - IP/workstation name: [email or web address]
[2020-03-06] MEDS: ASPIRIN 81 MG TABLET, CHEWABLE NG SCH (09:41)
[2020-03-06] MEDS: SODIUM BICARBONATE 650 MG TABLET NG SCH ×2 (09:41→21:21)
[2020-03-06] MEDS: ASCORBIC ACID 500 MG TABLET NG SCH ×2 (09:41→17:39)
[2020-03-06] MEDS: CALCITRIOL 1 MCG/ML ORAL SOLN 15 ML NG SCH (09:42)
[2020-03-06] MEDS: FLUTICASONE NASAL SPRAY 50 MCG/SPRY 120 SPRAY/16 GM NASL SCH ×2 (09:42→21:20)
[2020-03-06] MEDS: INSULIN GLARGINE,HUM.REC.ANLOG 1,000 UNIT/10 ML VIAL SUBCUT SCH (09:42)
[2020-03-06] MEDS: CHOLECALCIFEROL (D3) 1,000 UNIT (25 MCG) TABLET NG SCH ×3 (09:43→17:40)
[2020-03-06] MEDS: AMINO AC/PROTEIN HYDR/WHEY PRO 11 GM/45 ML PKT NG SCH ×3 (09:46→17:39)
[2020-03-06] MEDS: LINEZOLID 600 MG/300 ML RTUPB IV SCH (10:00)
[2020-03-06] MEDS ORDERED: VANCOMYCIN HCL 0 MG in DEXTROSE 5%-WATER 250 ML IV NR (10:45)
[2020-03-06] MEDS ORDERED: HEPARIN SOD (PORCINE) 1,000 UNIT/ML 10 ML VIAL IV PRN (13:10)
[2020-03-06] MEDS: PANTOPRAZOLE SODIUM 40 MG VIAL IV SCH (13:19)
--- NOTE | 2020-03-06 15:46 | PDOC PROGRESS REPORT ---
Subjective Progress Note for:: 03/06/20 Subjective:: I am seeing the patient during initiation of dialysis this afternoon. Patient remains to be intubated. Currently without any sedation or vasopressor. Reportedly to have be tracking and slightly more responsive than a week ago. Since his been intubated for 2 or more weeks, surgery has been consulted for possible tracheostomy placement. Reason For Visit: WEAKNESS,ELEVATED TROPONIN,CHF Physical Exam Vital Signs: Temp Pulse Resp BP Pulse Ox 98.6 F 132 H 21 H 138/53 H 100 03/06/20 10:09 03/05/20 23:54 03/06/20 10:03/06/20 10:09 03/06/20 12:40 Pulse Oximeter Nocturnal Start: 02/08/20 13:55 Freq: RTQ4 Status: Complete Protocol: Document 02/09/20 04:00 LRO (Rec: 02/09/20 05:38 LRO [email or web address]) Nocturnal Pulse Oximetry Equipment Usage Equipment in Use Oxygen Delivery Method (includes room Room Air air) O2 Sat by Pulse Oximetry (92-100) 95 Continuous SpO2 Machine # 2 Pulse Oximeter Nocturnal Start: 02/10/20 11:39 Freq: RTQ4 Status: Complete Protocol: Document 02/11/20 04:06 PMU (Rec: 02/11/20 05:06 PMU [email or web address]) Nocturnal Pulse Oximetry Equipment Usage Equipment in Use Oxygen Delivery Method (includes room Room Air air) O2 Sat by Pulse Oximetry (92-100) 93 Continuous SpO2 Machine # N2 Intake & Output 03/05/20 03/06/20 03/07/20 06:59 06:59 06:59 Intake Total 2571 1160 110 Output Total 5540 211 0 Balance -2969 949 110 Weight 112.3 kg 112.9 kg Vitals at the start of dialysis: Blood pressure 127/82, heart rate of 118, respiration of 21, currently on FiO2 of 40%. Exam: Limited exam due to COVID-19 infection. General appearance: PRESENT: Intubated Head exam: PRESENT: atraumatic, normocephalic Respiratory exam: PRESENT: Reportedly diminished breath sounds. ABSENT: crackles, rales, rhonchi, unlabored, wheezes Cardiovascular exam: PRESENT: Regular rate rhythm -+S1, +S2. Tachycardic ABSENT: diastolic murmur, systolic murmur Extremities exam: Grade 2 bilateral lower extremity pitting edema Neurological exam: PRESENT: Wakes up and is now tracking. Skin exam: PRESENT: dry, warm, Cardiovascular exam: PRESENT: +S1, +S2 GI/Abdominal exam: PRESENT: normal bowel sounds, soft. ABSENT: organomegaly, tenderness Results Laboratory Results: 03/06/20 04:20 03/06/20 04:20 03/06/20 03/06/20 03/06/20 04:20 04:20 04:20 WBC 2.5 L RBC 2.60 L Hgb 8.0 L Hct 23.8 L MCV 92 MCH 30.9 MCHC 33.7 RDW 16.4 H Plt Count 163 Seg Neutrophils % 80.3 H Carbonic Acid 0.96 L HCO3/H2CO3 Ratio 21:1 ABG pH 7.44 ABG pCO2 31.9 L ABG pO2 87.1 ABG HCO3 21.1 ABG O2 Saturation 97.0 ABG Base Excess -2.5 FiO2 35% Sodium 130.0 L Potassium 3.9 Chloride 92 L Carbon Dioxide 23 Anion Gap 15 BUN 95 H Creatinine 3.38 H Est GFR ( Amer) 22 L Glucose 82 Calcium 8.2 L Ionized Calcium Tessa 1.10 L Phosphorus 3.9 Magnesium 2.0 Total Bilirubin 0.6 AST 146 H Alkaline Phosphatase 167 H Total Protein 4.7 L Albumin 2.3 L 02/08/20 02/08/20 02/21/20 09:49 13:11 04:50 Troponin I 0.160 0.155 NT-Pro-B Natriuret Pep 5540 H 79402 H 02/26/20 05:35 Troponin I NT-Pro-B Natriuret Pep 26139 H Impressions: Hip/Pelvis X-Ray 02/08/20 00:00 IMPRESSION: No acute fracture. Severe degenerative changes of the left hip. Knee X-Ray 02/08/20 00:00 IMPRESSION: NEGATIVE STUDY OF THE RIGHT KNEE. NO RADIOGRAPHIC EVIDENCE OF ACUTE INJURY. Head CT 02/08/20 10:19 IMPRESSION: MILD CHRONIC CHANGES OF ATROPHY AND MICROVASCULAR ISCHEMIA. NO ACUTE PROCESS. EVIDENCE OF ACUTE STROKE: NO. Renal Ultrasound 02/21/20 00:00 IMPRESSION: Increased echogenicity of the renal parenchyma suggestive of underlying chronic medical renal disease. There is no hydronephrosis. There is a Ryan catheter within the urinary bladder. Chest X-Ray 03/06/20 05:00 IMPRESSION: 1. Stable pulmonary exam. 2. Stable lines and tubes. Assessment & Plan - Diagnosis (1) Acute kidney injury superimposed on chronic kidney disease Is this a current diagnosis for this admission?: Yes Plan: Patient is still oligo-anuric requiring renal replacement therapy. Patient likely to have ATN in the background of cardiomyopathy with ejection fraction of 25 to 30% and grade 3 diastolic dysfunction. Continue renal replacement therapy support. We will do dialysis today for 3.5 hours, using the patient's dialysis catheter, with 3 potassium bath, blood flow rate of 300 mL per minute, dialysate flow rate of 800 mL per minute, ultrafiltration 2-3 L as tolerated, no heparin and Procrit with 25,000 units during dialysis intravenously. Patient is currently being monitored throughout dialysis treatment. (2) Acute respiratory failure due to COVID-19 Is this a current diagnosis for this admission?: Yes Plan: Per pigeon fancier. Unable to be weaned off ventilator. Plan is to put a tracheostomy tube. (3) Metabolic acidosis Is this a current diagnosis for this admission?: Yes Plan: Controlled on dialysis and sodium bicarbonate per NG. (4) Hypocalcemia Is this a current diagnosis for this admission?: Yes Plan: Currently on calcitriol , IV calcium gluconate and increased dose of vitamin D. Calcium levels finally improving with normal corrected calcium. This is also due to hyperphosphatemia. (5) Hyperphosphatemia Is this a current diagnosis for this admission?: Yes Plan: Now controlled on calcium acetate. (6) Anemia Qualifiers: Anemia type: iron deficiency Is this a current diagnosis for this admission?: Yes Plan: Status post EGD showing only gastric erosions. Patient has had multiple blood transfusions. Currently on Retacrit during dialysis. (7) Atrial fibrillation Qualifiers: Atrial fibrillation type: persistent (not longstanding) Qualified Code(s): I48.19 - Other persistent atrial fibrillation; I48.1 - Persistent atrial fibrillation Is this a current diagnosis for this admission?: Yes Plan: Had been on diltiazem drip. (8) COVID-19 virus infection Is this a current diagnosis for this admission?: Yes Plan: Management per pigeon fancier. Repeat testing still pending. (9) Hyponatremia Is this a current diagnosis for this admission?: Yes Plan: Due to hypervolemic state. (10) Elevated liver enzymes Is this a current diagnosis for this admission?: Yes (11) MRSA pneumonia Qualifiers: Laterality: bilateral Lung location: unspecified part of lung Qualified Code(s): J15.212 - Pneumonia due to Methicillin resistant Staphylococcus aureus Is this a current diagnosis for this admission?: Yes Plan: Currently on IV linezolid and cefepime. (12) Nonischemic cardiomyopathy Is this a current diagnosis for this admission?: Yes (13) MARK (obstructive sleep apnea) Is this a current diagnosis for this admission?: Yes - Time Time with patient: 15-25 minutes
[2020-03-06] MEDS: CEFEPIME 1 GM/D5W RTU 1 GM/50 ML RTUPB IV SCH (17:41)
[2020-03-06] MEDS ORDERED: VANCOMYCIN HCL 2,000 MG in DEXTROSE 5%-WATER 500 ML IV ONE (18:00)
[2020-03-06 20:46] LABS: ANION GAP 11 (5-19); CALCIUM 8.1 mg/dL (8.4-10.2); CARBON DIOXIDE 28 mmol/L (22-30); CHLORIDE 93 mmol/L (98-107); GLUCOSE 91 mg/dL (75-110); POTASSIUM 3.3 mmol/L (3.6-5.0)
[2020-03-06 20:47] LABS: BLOOD UREA NITROGEN 49 mg/dL (7-20)
[2020-03-06] MEDS: ATORVASTATIN CALCIUM 40 MG TABLET NG SCH (21:20)
[2020-03-06] MEDS ORDERED: POTASSI CL 20 MEQ/50 ML RIDER 20 MEQ/50 ML RTUPB IV ONE ×2 (21:30→23:51)
[2020-03-06] MEDS ORDERED: MAGNESIUM SULFATE/D5W 1 GM/100 ML RTUPB IV ONE (21:30)
[2020-03-06] MEDS ORDERED: METOPROLOL TARTRATE PF/INJ 5 MG/5 ML SDV IV ONE (22:00)
[2020-03-06] MEDS ORDERED: CEFEPIME 1 GM/D5W RTU 1 GM/50 ML RTUPB IV SCH (22:00)
[2020-03-07] MEDS: INSULIN LISPRO 100 UNIT/ML 3 ML VIAL SUBCUT SCH ×4 (00:57→17:31)
[2020-03-07] MEDS: METOPROLOL TARTRATE PF/INJ 5 MG/5 ML SDV IV PRN ×2 (04:20→19:04)
[2020-03-07 05:03] LABS: ARTERIAL BLOOD BASE EXCESS 0.7 mmol/L; ARTERIAL BLOOD H2CO3 0.95 mmol/L (1.05-1.35); ARTERIAL BLOOD HCO3 23.6 mmol/L (20-24); ARTERIAL BLOOD PCO2 31.5 mmHg (35-45); ARTERIAL BLOOD PH 7.49 (7.35-7.45); ARTERIAL BLOOD PO2 56.7 mmHg (80-100); ARTERIAL BLOOD TOTAL CO2 24.5 mmol/L (23-27)
[2020-03-07 05:04] LABS: ARTERIAL BLOOD FIO2 40%
[2020-03-07 05:07] LABS: ABSOLUTE LYMPHOCYTES (AUTO) 0.1 10^3/uL (0.5-4.7); ABSOLUTE MONOCYTES (AUTO) 0.2 10^3/uL (0.1-1.4); ABSOLUTE NEUT (AUTO) 1.7 10^3/uL (1.7-8.2); BASOPHILS % (AUTO) 0.6 % (0-2); EOSINOPHILS % (AUTO) 0.9 % (0-6); HEMATOCRIT 24.5 % (37.9-51.0); HEMOGLOBIN 8.3 g/dL (13.5-17.0); LYMPHOCYTES % (AUTO) 6.4 % (13-45); MEAN CORPUSCULAR HGB CONC 33.8 g/dL (32.0-36.0); MEAN CORPUSCULAR VOLUME 92 fl (80-97); MONOCYTES % (AUTO) 11.6 % (3-13); PLATELET COUNT 172 10^3/uL (150-450); RED BLOOD COUNT 2.67 10^6/uL (4.35-5.55); SEGMENTED NEUTROPHILS % (AUTO) 80.5 % (42-78); TOTAL CELLS COUNTED % (AUTO) 100 %; WHITE BLOOD COUNT 2.1 10^3/uL (4.0-10.5)
[2020-03-07 05:16] LABS: ANION GAP 11 (5-19); BLOOD UREA NITROGEN 58 mg/dL (7-20); CALCIUM 8.2 mg/dL (8.4-10.2); CARBON DIOXIDE 27 mmol/L (22-30); CHLORIDE 94 mmol/L (98-107); GLUCOSE 101 mg/dL (75-110); PHOSPHORUS 2.6 mg/dL (2.5-4.5); POTASSIUM 3.7 mmol/L (3.6-5.0)
[2020-03-07] MEDS: HEPARIN SOD (PORCINE) 5,000 UNIT/ML 1 ML VIAL SUBCUT SCH (06:53)
[2020-03-07] MEDS: DILTIAZEM HCL 90 MG TABLET NG SCH (06:53)
[2020-03-07] MEDS: CALCIUM ACETATE 667 MG CAPSULE PO SCH ×3 (06:54→21:11)
[2020-03-07] MEDS: CALCIUM GLUCONATE 1 GM/NS 50 ML RTU IV SCH (06:55)
--- NOTE | 2020-03-07 09:46 | PDOC CRITICAL CARE PROG REPORT ---
General Date:: 03/06/20 ICU Day:: 24 Ventilator Day:: 24 Hospital Day:: Resuscitation Status: Full Code Events in the past 12 to 24 Hours:: This 69-year-old male was admitted on 02/08/2020 with dyspnea and leg weakness. He reported falling out of his truck a few days prior to presentation. He transferred to the ICU on 02/12/2020 after requiring endotracheal intubation due to acute respiratory failure secondary to COVID-19 pneumonia. 03/02: Remains intubated. On pressure support ventilation. Actually, from a respiratory mechanics standpoint looks good; however, he has copious purulent secretions emanating from the ET tube circuit. Trach aspirate (02/20) isolated MRSA and yeast. Sacral decubitus is isolating E. coli and other gram-negative rods. On linezolid for MRSA coverage. Not on antibiotic therapy for gram- negative rods. 03/03: Remains intubated. Restarted heparin infusion yesterday; however, the patient had a bout of hemoptysis, prompting immediate discontinuation. He remains hemodynamically stable. He was changed from pressure support ventilation back to SIMV PRVC plus pressure support for the evening. Sacral wound isolated E coli and E cloacae. Previously, aspirate isolated MRSA. Now on Rocephin and Zyvox. He is awake. Off sedation. However, he does not follow commands. 03/04: Remains intubated. Continues to need calcium repletion. Notably, the patient does demonstrate more motor activity today than on previous exams. Awake, alert. Squeezes right hand briskly. Weak client retention specialist strength in the left hand but much improved. Does not wiggle toes on command. Has tolerated pressure support ventilation 01/31 overnight. On Rocephin for sacral wound. On Zyvox for MRSA pneumonia. 03/05: Remains intubated. Calcium slowly improving. Increased vitamin D administration yesterday in light of low vitamin D levels (in spite of daily supplement). Seems to be more interactive. Muscle strength trivially improved. Awake, alert. Continues to squeeze right hand. Weak client retention specialist strength in the left hand. Does not wiggle toes on command. Still on pressure support ventilation. On Rocephin and Zyvox. Case discussed with Dr. Talely, in anticipation of tracheostomy and sacral wound debridement. 03/06: Remains intubated. Calcium slowly improving. Awake, alert. Still weak overall. Tolerating pressure support ventilation. On Rocephin and Zyvox. WBC 2.5 today. Also, sensitivity profile reveals gram-negative rods resistant to Rocephin (sensitive to cefepime). Anticipating tracheostomy and percutaneous gastrostomy placement on Monday next week. Review of systems relevant to events:: Respiratory: COVID-19 pneumonia Renal: End-stage renal disease Neurological/musculoskeletal: Weakness Reason for ICU Addmission:: Acute respiratory distress and need for intubation - Medications: Medications reviewed and adjusted accordingly: Yes Physical Exam Vital Signs: Temp Pulse Resp BP Pulse Ox 98.4 F 132 H 23 H 122/48 L 99 03/06/20 09:09 03/05/20 23:54 03/06/20 09:09 03/06/20 09:09 03/06/20 09:09 Pulse Oximeter Nocturnal Start: 02/08/20 13:55 Freq: RTQ4 Status: Complete Protocol: Document 02/09/20 04:00 LRO (Rec: 02/09/20 05:38 LRO [email or web address]) Nocturnal Pulse Oximetry Equipment Usage Equipment in Use Oxygen Delivery Method (includes room Room Air air) O2 Sat by Pulse Oximetry (92-100) 95 Continuous SpO2 Machine # 2 Pulse Oximeter Nocturnal Start: 02/10/20 11:39 Freq: RTQ4 Status: Complete Protocol: Document 02/11/20 04:06 PMU (Rec: 02/11/20 05:06 PMU [email or web address]) Nocturnal Pulse Oximetry Equipment Usage Equipment in Use Oxygen Delivery Method (includes room Room Air air) O2 Sat by Pulse Oximetry (92-100) 93 Continuous SpO2 Machine # N2 Intake & Output 03/05/20 03/06/20 03/07/20 06:59 06:59 06:59 Intake Total 2571 1160 Output Total 5540 211 0 Balance -2969 949 0 Weight 112.3 kg 112.9 kg Weight/Height Weight 112.9 kg Height 1.75 m Laboratory/Radiographs Laboratory Results: 03/06/20 04:20 03/06/20 04:20 03/05/20 03/06/20 03/06/20 10:10 04:20 04:20 WBC RBC Hgb Hct MCV MCH MCHC RDW Plt Count Seg Neutrophils % Carbonic Acid 0.96 L HCO3/H2CO3 Ratio 21:1 ABG pH 7.44 ABG pCO2 31.9 L ABG pO2 87.1 ABG HCO3 21.1 ABG O2 Saturation 97.0 ABG Base Excess -2.5 FiO2 35% Sodium 130.0 L Potassium 3.9 Chloride 92 L Carbon Dioxide 23 Anion Gap 15 BUN 95 H Creatinine 3.38 H Est GFR ( Amer) 22 L Glucose 82 Calcium 8.2 L Ionized Calcium Tessa 1.06 L 1.10 L Phosphorus 3.9 Magnesium 2.0 Total Bilirubin 0.6 AST 146 H Alkaline Phosphatase 167 H Total Protein 4.7 L Albumin 2.3 L 03/06/20 04:20 WBC 2.5 L RBC 2.60 L Hgb 8.0 L Hct 23.8 L MCV 92 MCH 30.9 MCHC 33.7 RDW 16.4 H Plt Count 163 Seg Neutrophils % 80.3 H Carbonic Acid HCO3/H2CO3 Ratio ABG pH ABG pCO2 ABG pO2 ABG HCO3 ABG O2 Saturation ABG Base Excess FiO2 Sodium Potassium Chloride Carbon Dioxide Anion Gap BUN Creatinine Est GFR ( Amer) Glucose Calcium Ionized Calcium Tessa Phosphorus Magnesium Total Bilirubin AST Alkaline Phosphatase Total Protein Albumin 02/08/20 02/08/20 02/21/20 09:49 13:11 04:50 Troponin I 0.160 0.155 NT-Pro-B Natriuret Pep 5540 H 47367 H 02/26/20 05:35 Troponin I NT-Pro-B Natriuret Pep 94248 H Impressions: Hip/Pelvis X-Ray 02/08/20 00:00 IMPRESSION: No acute fracture. Severe degenerative changes of the left hip. Knee X-Ray 02/08/20 00:00 IMPRESSION: NEGATIVE STUDY OF THE RIGHT KNEE. NO RADIOGRAPHIC EVIDENCE OF ACUTE INJURY. Head CT 02/08/20 10:19 IMPRESSION: MILD CHRONIC CHANGES OF ATROPHY AND MICROVASCULAR ISCHEMIA. NO ACUTE PROCESS. EVIDENCE OF ACUTE STROKE: NO. Renal Ultrasound 02/21/20 00:00 IMPRESSION: Increased echogenicity of the renal parenchyma suggestive of underlying chronic medical renal disease. There is no hydronephrosis. There is a Ryan catheter within the urinary bladder. Chest X-Ray 03/06/20 05:00 IMPRESSION: 1. Stable pulmonary exam. 2. Stable lines and tubes. Assessment and Plan - Diagnosis (1) Acute respiratory failure due to COVID-19 Is this a current diagnosis for this admission?: Yes (2) Gram negative sepsis Is this a current diagnosis for this admission?: Yes Plan: Secondary to wound infection/sacral decubitus. The new decline in WBC count is concerning for worsening gram-negative sepsis. Of note, the patient has isolated E. coli and E. coli waking from his sacral decubitus. He has been on Rocephin; however, sensitivity profile reveals resistance to Rocephin. Alternatively, Zyvox may be causing myelosuppression. Change antibiotics: Start cefepime/vancomycin. Stop Rocephin/Zyvox. (3) Decubitus ulcer of sacral region, unstageable Is this a current diagnosis for this admission?: Yes Plan: Present on admission. Change Rocephin to cefepime. Case discussed with Dr. Talley (General surgery consultation). (4) Nonischemic cardiomyopathy Is this a current diagnosis for this admission?: Yes (5) Atrial fibrillation Qualifiers: Atrial fibrillation type: persistent (not longstanding) Qualified Code(s): I48.19 - Other persistent atrial fibrillation; I48.1 - Persistent atrial fibrillation Is this a current diagnosis for this admission?: Yes (6) Hypocalcemia Is this a current diagnosis for this admission?: Yes (7) Hyponatremia Is this a current diagnosis for this admission?: Yes (8) Occult blood in stools Is this a current diagnosis for this admission?: Yes (9) CKD (chronic kidney disease) stage 5, GFR less than 15 ml/min Is this a current diagnosis for this admission?: Yes (10) Vitamin D deficiency Is this a current diagnosis for this admission?: Yes Plan: Vitamin D3 2000 units NG 3 times daily (11) Abnormal LFTs Is this a current diagnosis for this admission?: Yes (12) Normocytic anemia Is this a current diagnosis for this admission?: Yes (13) MRSA pneumonia Qualifiers: Laterality: bilateral Lung location: unspecified part of lung Qualified Code(s): J15.212 - Pneumonia due to Methicillin resistant Staphylococcus aureus Is this a current diagnosis for this admission?: Yes Plan: Stop linezolid. Completed a 10-day treatment course. Critical Time Critical Time (minutes): 60 Level of Care: ICU -: 1. The care of a critical patient is a dynamic process. This note is a territory service representative synopsis but static in nature. The timeframe for treatments given in order is not necessarily the actual time these treatments may have been done. 2. This patient requires critical care secondary to ongoing requirements for therapy not offered or safe outside the critical care environment. Transfer to a lower level of care will result in altered life or limb morbidity and mortality. 3. Multidisciplinary rounds completed. 4. ABCDE bundle addressed.
[2020-03-07] MEDS ORDERED: METOPROLOL TARTRATE 25 MG TABLET NG SCH (10:00)
[2020-03-07] MEDS: CALCITRIOL 1 MCG/ML ORAL SOLN 15 ML NG SCH (10:24)
[2020-03-07] MEDS: ASPIRIN 81 MG TABLET, CHEWABLE NG SCH (10:25)
[2020-03-07] MEDS: ZINC SULFATE 220 MG CAPSULE NG SCH (10:25)
[2020-03-07] MEDS: AMINO AC/PROTEIN HYDR/WHEY PRO 11 GM/45 ML PKT NG SCH ×3 (10:25→17:24)
[2020-03-07] MEDS: CHOLECALCIFEROL (D3) 1,000 UNIT (25 MCG) TABLET NG SCH ×3 (10:25→17:24)
[2020-03-07] MEDS: SODIUM BICARBONATE 650 MG TABLET NG SCH ×2 (10:25→21:11)
[2020-03-07] MEDS: ASCORBIC ACID 500 MG TABLET NG SCH ×2 (10:25→17:24)
[2020-03-07] MEDS: FLUTICASONE NASAL SPRAY 50 MCG/SPRY 120 SPRAY/16 GM NASL SCH ×2 (10:26→21:11)
[2020-03-07] MEDS: NORMAL SALINE 1000 ML 1,000 ML IV PRN (11:16)
[2020-03-07] MEDS: DEXMEDETOMIDINE IN 0.9 % NACL 400 MCG/100 ML RTUPB IV PRN (11:17)
[2020-03-07] MEDS: INSULIN GLARGINE,HUM.REC.ANLOG 1,000 UNIT/10 ML VIAL SUBCUT SCH (11:17)
[2020-03-07 11:52] LABS: ARTERIAL BLOOD BASE EXCESS 0.8 mmol/L; ARTERIAL BLOOD H2CO3 0.94 mmol/L (1.05-1.35); ARTERIAL BLOOD HCO3 23.8 mmol/L (20-24); ARTERIAL BLOOD O2 SATURATION 96.8 % (94-98); ARTERIAL BLOOD PCO2 31.2 mmHg (35-45); ARTERIAL BLOOD PO2 80.4 mmHg (80-100); ARTERIAL BLOOD TOTAL CO2 24.7 mmol/L (23-27)
[2020-03-07 11:53] LABS: ARTERIAL BLOOD FIO2 40%
[2020-03-07] MEDS ORDERED: ALBUMIN HUMAN 25% RTU INJ 12.5 GM/50 ML RTUINJ IV SCH (12:00)
[2020-03-07] MEDS ORDERED: HEPARIN SOD (PORCINE) 1,000 UNIT/ML 10 ML VIAL IV ONE (14:00)
[2020-03-07] MEDS: PANTOPRAZOLE SODIUM 40 MG VIAL IV SCH (14:38)
[2020-03-07] MEDS: HEPARIN SODIUM,PORCINE/D5W 25,000 UNIT/250 ML RTUINJ IV PRN (14:47)
[2020-03-07 15:14] LABS: ABSOLUTE LYMPHOCYTES (AUTO) 0.2 10^3/uL (0.5-4.7); ABSOLUTE MONOCYTES (AUTO) 0.2 10^3/uL (0.1-1.4); ABSOLUTE NEUT (AUTO) 1.8 10^3/uL (1.7-8.2); BASOPHILS % (AUTO) 0.7 % (0-2); EOSINOPHILS % (AUTO) 1.9 % (0-6); HEMATOCRIT 22.7 % (37.9-51.0); LYMPHOCYTES % (AUTO) 6.7 % (13-45); MEAN CORPUSCULAR HEMOGLOBIN 31.1 pg (27.0-33.4); MEAN CORPUSCULAR HGB CONC 34.3 g/dL (32.0-36.0); MEAN CORPUSCULAR VOLUME 91 fl (80-97); MONOCYTES % (AUTO) 10.3 % (3-13); PLATELET COUNT 160 10^3/uL (150-450); RED CELL DISTRIBUTION WIDTH 16.9 % (11.5-14.0); SEGMENTED NEUTROPHILS % (AUTO) 80.4 % (42-78); TOTAL CELLS COUNTED % (AUTO) 100 %; WHITE BLOOD COUNT 2.3 10^3/uL (4.0-10.5)
[2020-03-07 15:20] LABS: ANION GAP 10 (5-19); BLOOD UREA NITROGEN 65 mg/dL (7-20); CALCIUM 8.2 mg/dL (8.4-10.2); CARBON DIOXIDE 27 mmol/L (22-30); CHLORIDE 94 mmol/L (98-107); GLUCOSE 100 mg/dL (75-110); POTASSIUM 3.6 mmol/L (3.6-5.0)
[2020-03-07 15:25] LABS: INTERNATIONAL RATION (INR) 1.22; PROTHROMBIN TIME 15.6 SEC (11.4-15.4)
[2020-03-07 15:26] LABS: PARTIAL THROMBOPLASTIN TIME 35.4 SEC (23.5-35.8)
[2020-03-07] MEDS ORDERED: HEPARIN SOD (PORCINE) 1,000 UNIT/ML 10 ML VIAL IV PRN (15:42)
[2020-03-07 15:46] LABS: HEMOGLOBIN 7.8 g/dL (13.5-17.0)
[2020-03-07] MEDS ORDERED: NORMAL SALINE 250 ML IV PRN (15:48)
[2020-03-07] MEDS ORDERED: POTASSIUM CHLORIDE 20 MEQ PACKET PO ONE (16:30)
[2020-03-07] MEDS: CEFEPIME 1 GM/D5W RTU 1 GM/50 ML RTUPB IV SCH (17:24)
--- NOTE | 2020-03-07 18:25 | PDOC CRITICAL CARE PROG REPORT ---
General Date:: 03/07/20 ICU Day:: 24 Ventilator Day:: 24 Hospital Day:: Resuscitation Status: Full Code Events in the past 12 to 24 Hours:: This 69-year-old male was admitted on 02/08/2020 with dyspnea and leg weakness. He reported falling out of his truck a few days prior to presentation. He transferred to the ICU on 02/12/2020 after requiring endotracheal intubation due to acute respiratory failure secondary to COVID-19 pneumonia. 03/02: Remains intubated. On pressure support ventilation. Actually, from a respiratory mechanics standpoint looks good; however, he has copious purulent secretions emanating from the ET tube circuit. Trach aspirate (02/20) isolated MRSA and yeast. Sacral decubitus is isolating E. coli and other gram-negative rods. On linezolid for MRSA coverage. Not on antibiotic therapy for gram- negative rods. 03/03: Remains intubated. Restarted heparin infusion yesterday; however, the patient had a bout of hemoptysis, prompting immediate discontinuation. He remains hemodynamically stable. He was changed from pressure support ventilation back to SIMV PRVC plus pressure support for the evening. Sacral wound isolated E coli and E cloacae. Previously, aspirate isolated MRSA. Now on Rocephin and Zyvox. He is awake. Off sedation. However, he does not follow commands. 03/04: Remains intubated. Continues to need calcium repletion. Notably, the patient does demonstrate more motor activity today than on previous exams. Awake, alert. Squeezes right hand briskly. Weak csw strength in the left hand but much improved. Does not wiggle toes on command. Has tolerated pressure support ventilation 01/31 overnight. On Rocephin for sacral wound. On Zyvox for MRSA pneumonia. 03/05: Remains intubated. Calcium slowly improving. Increased vitamin D administration yesterday in light of low vitamin D levels (in spite of daily supplement). Seems to be more interactive. Muscle strength trivially improved. Awake, alert. Continues to squeeze right hand. Weak csw strength in the left hand. Does not wiggle toes on command. Still on pressure support ventilation. On Rocephin and Zyvox. Case discussed with Dr. Talley, in anticipation of tracheostomy and sacral wound debridement. 03/06: Remains intubated. Calcium slowly improving. Awake, alert. Still weak overall. Tolerating pressure support ventilation. On Rocephin and Zyvox. WBC 2.5 today. Also, sensitivity profile reveals gram-negative rods resistant to Rocephin (sensitive to cefepime). Anticipating tracheostomy and percutaneous gastrostomy placement on Monday next week. 03/07: Remains intubated. Ionized calcium is finally normalized, 1.14 today. Awake, alert. Very weak. Tolerating pressure support ventilation. On cefepime. WBC 2.1 today. Surgery consultation reviewed. Help appreciated. Review of systems relevant to events:: Respiratory: COVID-19 pneumonia Renal: End-stage renal disease Neurological/musculoskeletal: Weakness Reason for ICU Addmission:: Acute respiratory distress and need for intubation - Medications: Medications reviewed and adjusted accordingly: Yes Physical Exam Vital Signs: Temp Pulse Resp BP Pulse Ox 100.2 F 102 H 24 H 135/46 H 96 03/07/20 08:00 03/07/20 08:00 03/07/20 08:00 03/07/20 08:00 03/07/20 09:00 Pulse Oximeter Nocturnal Start: 02/08/20 13:55 Freq: RTQ4 Status: Complete Protocol: Document 02/09/20 04:00 LRO (Rec: 02/09/20 05:38 LRO [email or web address]) Nocturnal Pulse Oximetry Equipment Usage Equipment in Use Oxygen Delivery Method (includes room Room Air air) O2 Sat by Pulse Oximetry (92-100) 95 Continuous SpO2 Machine # 2 Pulse Oximeter Nocturnal Start: 02/10/20 1 1:39 Freq: RTQ4 Status: Complete Protocol: Document 02/11/20 04:06 PMU (Rec: 02/11/20 05:06 PMU [email or web address]) Nocturnal Pulse Oximetry Equipment Usage Equipment in Use Oxygen Delivery Method (includes room Room Air air) O2 Sat by Pulse Oximetry (92-100) 93 Continuous SpO2 Machine # N2 Intake & Output 03/06/20 03/07/20 03/08/20 06:59 06:59 06:59 Intake Total 1160 710 Output Total 211 4115 0 Balance 949 -3405 0 Weight 112.9 kg 110.9 kg Weight/Height Weight 110.9 kg Height 1.75 m General appearance: PRESENT: no acute distress, well-developed, well-nourished Head exam: PRESENT: atraumatic, normocephalic Eye exam: PRESENT: conjunctiva pink, EOMI, PERRLA. ABSENT: scleral icterus Mouth exam: PRESENT: moist, tongue midline Neck exam: ABSENT: carotid bruit, JVD, lymphadenopathy, thyromegaly Respiratory exam: PRESENT: clear to auscultation kevyn. ABSENT: rales, rhonchi, wheezes Cardiovascular exam: PRESENT: RRR. ABSENT: diastolic murmur, rubs, systolic murmur Pulses: PRESENT: normal dorsalis pedis pul GI/Abdominal exam: PRESENT: normal bowel sounds, soft. ABSENT: distended, guarding, mass, organolmegaly, rebound, tenderness Gentrourinary exam: PRESENT: indwelling catheter Extremities exam: PRESENT: full ROM, pedal edema, +2 edema. ABSENT: calf tenderness, clubbing Neurological exam: PRESENT: alert, awake, CN II-XII grossly intact, motor sensory deficit. ABSENT: reflexes normal Psychiatric exam: ABSENT: agitated, anxious Skin exam: PRESENT: other - Sacral decubitus Tubes/Lines: PRESENT: Endotracheal Tube - 02/11, Central Line - Right IJ 02/11, Dialysis catheter - Left femoral 02/16, Other - Orogastric Laboratory/Radiographs Laboratory Results: 03/07/20 04:25 03/07/20 04:25 03/06/20 03/07/20 03/07/20 20:00 04:25 04:25 WBC RBC Hgb Hct MCV MCH MCHC RDW Plt Count Seg Neutrophils % Carbonic Acid 0.95 L HCO3/H2CO3 Ratio 24:1 ABG pH 7.49 H ABG pCO2 31.5 L ABG pO2 56.7 L ABG HCO3 23.6 ABG O2 Saturation 92.0 L ABG Base Excess 0.7 FiO2 40% Sodium 131.8 L Potassium 3.3 L Chloride 93 L Carbon Dioxide 28 Anion Gap 11 BUN 49 H D Creatinine 1.86 H Est GFR ( Amer) 44 L Glucose 91 Calcium 8.1 L Ionized Calcium Tessa 1.14 Phosphorus Magnesium 1.9 03/07/20 03/07/20 04:25 04:25 WBC 2.1 L RBC 2.67 L Hgb 8.3 L Hct 24.5 L MCV 92 MCH 31.0 MCHC 33.8 RDW 17.0 H Plt Count 172 Seg Neutrophils % 80.5 H Carbonic Acid HCO3/H2CO3 Ratio ABG pH ABG pCO2 ABG pO2 ABG HCO3 ABG O2 Saturation ABG Base Excess FiO2 Sodium 132.0 L Potassium 3.7 Chloride 94 L Carbon Dioxide 27 Anion Gap 11 BUN 58 H Creatinine 2.20 H Est GFR ( Amer) 36 L Glucose 101 Calcium 8.2 L Ionized Calcium Tessa Phosphorus 2.6 Magnesium 2.1 02/08/20 02/08/20 02/21/20 09:49 13:11 04:50 Troponin I 0.160 0.155 NT-Pro-B Natriuret Pep 5540 H 12700 H 02/26/20 05:35 Troponin I NT-Pro-B Natriuret Pep 26833 H Impressions: Hip/Pelvis X-Ray 02/08/20 00:00 IMPRESSION: No acute fracture. Severe degenerative changes of the left hip. Knee X-Ray 02/08/20 00:00 IMPRESSION: NEGATIVE STUDY OF THE RIGHT KNEE. NO RADIOGRAPHIC EVIDENCE OF ACUTE INJURY. Head CT 02/08/20 10:19 IMPRESSION: MILD CHRONIC CHANGES OF ATROPHY AND MICROVASCULAR ISCHEMIA. NO ACUTE PROCESS. EVIDENCE OF ACUTE STROKE: NO. Renal Ultrasound 02/21/20 00:00 IMPRESSION: Increased echogenicity of the renal parenchyma suggestive of underlying chronic medical renal disease. There is no hydronephrosis. There is a Ryan catheter within the urinary bladder. Chest X-Ray 03/06/20 05:00 IMPRESSION: 1. Stable pulmonary exam. 2. Stable lines and tubes. All labs, radiographs, diagnostic studies and EKGs were personally reviewed: Yes In addition, reports of radiographic and diagnostic studies were read: Yes Assessment and Plan - Diagnosis (1) Acute respiratory failure due to COVID-19 Is this a current diagnosis for this admission?: Yes Plan: Change to SIMV PRVC + PSV in anticipation of tracheostomy early next week. Restart Precedex. Trach vent settings based on ABG results. Continue budesonide. Treated with hydroxychloroquine/dexamethasone. Repeat COVID-19 test pending. Consult PT/OT. (2) Gram negative sepsis Is this a current diagnosis for this admission?: Yes Plan: Secondary to wound infection/sacral decubitus. The new decline in WBC count is concerning for worsening gram-negative sepsis. Of note, the patient has isolated E. coli and E. cloacae from his sacral decubitus. Continue cefepime. (3) Decubitus ulcer of sacral region, unstageable Is this a current diagnosis for this admission?: Yes Plan: Present on admission. General surgery help appreciated. (4) Nonischemic cardiomyopathy Is this a current diagnosis for this admission?: Yes Plan: LVEF 25-30% with grade 3 diastolic dysfunction on 2D echo (02/10/2020). (5) Atrial fibrillation Qualifiers: Atrial fibrillation type: persistent (not longstanding) Qualified Code(s): I48.19 - Other persistent atrial fibrillation; I48.1 - Persistent atrial fib rillation Is this a current diagnosis for this admission?: Yes Plan: Off heparin infusion due to hemoptysis. Monitor hemoglobin. On heparin at DVT prophylaxis dose. Of note, the patient is apparently on Toprol-XL 50 mg p.o. daily at home in addition to Entresto. There are no calcium channel nando on his home medications. In light of the difficulties we are experiencing with hypocalcemia in this patient, I will try discontinuing his diltiazem. Start metoprolol 25 mg NG every 12 hours. (6) Vitamin D deficiency Is this a current diagnosis for this admission?: Yes Plan: Vitamin D3 2000 units NG 3 times daily (7) Hypocalcemia Is this a current diagnosis for this admission?: Yes (8) Hyponatremia Is this a current diagnosis for this admission?: Yes (9) Occult blood in stools Is this a current diagnosis for this admission?: Yes (10) CKD (chronic kidney disease) stage 5, GFR less than 15 ml/min Is this a current diagnosis for this admission?: Yes (11) Abnormal LFTs Is this a current diagnosis for this admission?: Yes (12) Normocytic anemia Is this a current diagnosis for this admission?: Yes (13) MRSA pneumonia Qualifiers: Laterality: bilateral Lung location: unspecified part of lung Qualified Code(s): J15.212 - Pneumonia due to Methicillin resistant Staphylococcus aureus Is this a current diagnosis for this admission?: Yes Plan: Completed a 10-day treatment course. Critical Time Critical Time (minutes): 90 Level of Care: ICU -: 1. The care of a critical patient is a dynamic process. This note is a wholesale representative synopsis but static in nature. The timeframe for treatments given in order is not necessarily the actual time these treatments may have been done. 2. This patient requires critical care secondary to ongoing requirements for therapy not offered or safe outside the critical care environment. Transfer to a lower level of care will result in altered life or limb morbidity and mortality. 3. Multidisciplinary rounds completed. 4. ABCDE bundle addressed.
[2020-03-07] MEDS: ALBUMIN HUMAN 12.5 GM/50 ML RTUINJ IV SCH (18:35)
[2020-03-07] MEDS: ACETAMINOPHEN SOLN 325 MG/10.15 ML UDCUP NG PRN (18:59)
[2020-03-07 21:02] LABS: HEMOGLOBIN 8.8 g/dL (13.5-17.0); MEAN CORPUSCULAR HEMOGLOBIN 31.1 pg (27.0-33.4); MEAN CORPUSCULAR HGB CONC 33.9 g/dL (32.0-36.0); MEAN CORPUSCULAR VOLUME 92 fl (80-97); PLATELET COUNT 166 10^3/uL (150-450); RED BLOOD COUNT 2.84 10^6/uL (4.35-5.55); RED CELL DISTRIBUTION WIDTH 16.4 % (11.5-14.0)
[2020-03-07] MEDS: ATORVASTATIN CALCIUM 40 MG TABLET NG SCH (21:10)
[2020-03-07] MEDS ORDERED: METOPROLOL TARTRATE 50 MG TABLET NG SCH (22:00)
[2020-03-08] MEDS: METOPROLOL TARTRATE PF/INJ 5 MG/5 ML SDV IV PRN (03:00)
[2020-03-08 03:11] LABS: ABSOLUTE EOSINOPHILS # (AUTO) 0.1 10^3/uL (0.0-0.6); ABSOLUTE LYMPHOCYTES (AUTO) 0.3 10^3/uL (0.5-4.7); ABSOLUTE MONOCYTES (AUTO) 0.5 10^3/uL (0.1-1.4); ABSOLUTE NEUT (AUTO) 2.9 10^3/uL (1.7-8.2); BASOPHILS % (AUTO) 0.5 % (0-2); EOSINOPHILS % (AUTO) 1.4 % (0-6); HEMATOCRIT 27.6 % (37.9-51.0); HEMOGLOBIN 9.4 g/dL (13.5-17.0); LYMPHOCYTES % (AUTO) 7.9 % (13-45); MEAN CORPUSCULAR HEMOGLOBIN 31.7 pg (27.0-33.4); MEAN CORPUSCULAR HGB CONC 34.2 g/dL (32.0-36.0); MEAN CORPUSCULAR VOLUME 93 fl (80-97); MONOCYTES % (AUTO) 12.7 % (3-13); PLATELET COUNT 172 10^3/uL (150-450); RED BLOOD COUNT 2.98 10^6/uL (4.35-5.55); RED CELL DISTRIBUTION WIDTH 16.9 % (11.5-14.0); SEGMENTED NEUTROPHILS % (AUTO) 77.5 % (42-78); TOTAL CELLS COUNTED % (AUTO) 100 %; WHITE BLOOD COUNT 3.7 10^3/uL (4.0-10.5)
[2020-03-08 03:51] LABS: ALBUMIN 2.3 g/dL (3.5-5.0); ALKALINE PHOSPHATASE 175 U/L (38-126); ANION GAP 10 (5-19); ASPARTATE AMINO TRANSFERASE 87 U/L (17-59); BILIRUBIN,DIRECT 0.6 mg/dL (0.0-0.4); BILIRUBIN,TOTAL 0.8 mg/dL (0.2-1.3); BLOOD UREA NITROGEN 70 mg/dL (7-20); CALCIUM 8.3 mg/dL (8.4-10.2); CARBON DIOXIDE 26 mmol/L (22-30); CHLORIDE 95 mmol/L (98-107); GLUCOSE 101 mg/dL (75-110); PHOSPHORUS 2.8 mg/dL (2.5-4.5); POTASSIUM 4.1 mmol/L (3.6-5.0); TOTAL PROTEIN 4.3 g/dL (6.3-8.2)
[2020-03-08] MEDS: INSULIN LISPRO 100 UNIT/ML 3 ML VIAL SUBCUT SCH ×5 (04:14→23:21)
[2020-03-08 04:22] LABS: ARTERIAL BLOOD BASE EXCESS 1.9 mmol/L; ARTERIAL BLOOD FIO2 4 L; ARTERIAL BLOOD H2CO3 1.04 mmol/L (1.05-1.35); ARTERIAL BLOOD HCO3 25.4 mmol/L (20-24); ARTERIAL BLOOD O2 SATURATION 95.4 % (94-98); ARTERIAL BLOOD PCO2 34.6 mmHg (35-45); ARTERIAL BLOOD PH 7.48 (7.35-7.45); ARTERIAL BLOOD PO2 70.5 mmHg (80-100); ARTERIAL BLOOD TOTAL CO2 26.4 mmol/L (23-27)
[2020-03-08] MEDS ORDERED: METOPROLOL TARTRATE PF/INJ 5 MG/5 ML SDV IV ONE (05:29)
[2020-03-08] MEDS ORDERED: CALCIUM GLUCONATE 1000 MG/10 ML INJ IV ONE (05:31)
[2020-03-08] MEDS ORDERED: MAGNESIUM SULFATE/D5W 1 GM/100 ML RTUPB IV ONE (05:32)
[2020-03-08] MEDS ORDERED: CALCIUM GLUCONATE 1 GM/NS 50 ML RTU IV ONE (05:45)
[2020-03-08] MEDS: CALCIUM ACETATE 667 MG CAPSULE PO SCH ×3 (06:07→22:24)
[2020-03-08] MEDS: ACETAMINOPHEN SOLN 325 MG/10.15 ML UDCUP NG PRN ×2 (06:10→22:24)
--- NOTE | 2020-03-08 09:20 | RADIOLOGY REPORT (SQ) ---
EXAM DESCRIPTION: CHEST SINGLE VIEW IMAGES COMPLETED DATE/TIME: 03/08/2020 5:24 am REASON FOR STUDY: ETT tube COMPARISON: 03/06/2020 NUMBER OF VIEWS: One view. TECHNIQUE: Single frontal radiographic image of the chest acquired. LIMITATIONS: None. FINDINGS: LUNGS AND PLEURA: Bilateral airspace disease, right greater than left not significantly ch anged. No pneumothorax. MEDIASTINUM AND HEART: Stable heart size and mediastinal structures. SUPPORT DEVICES: Appropriate location without change. BONY STRUCTURES: No acute findings. HARDWARE: None. OTHER: No other significant finding. IMPRESSION: No significant change. No pneumothorax. Reading location - IP/workstation name: [email or web address]
[2020-03-08] MEDS: HEPARIN SODIUM,PORCINE/D5W 25,000 UNIT/250 ML RTUINJ IV PRN (09:37)
[2020-03-08] MEDS ORDERED: METOPROLOL TARTRATE 50 MG TABLET NG SCH ×2 (10:00→15:00)
[2020-03-08] MEDS: AMINO AC/PROTEIN HYDR/WHEY PRO 11 GM/45 ML PKT NG SCH ×3 (11:32→18:21)
[2020-03-08] MEDS: INSULIN GLARGINE,HUM.REC.ANLOG 1,000 UNIT/10 ML VIAL SUBCUT SCH (11:35)
[2020-03-08] MEDS: ASCORBIC ACID 500 MG TABLET NG SCH ×2 (11:36→18:21)
[2020-03-08] MEDS: SODIUM BICARBONATE 650 MG TABLET NG SCH ×2 (11:36→22:23)
[2020-03-08] MEDS: ZINC SULFATE 220 MG CAPSULE NG SCH (11:36)
[2020-03-08] MEDS: CHOLECALCIFEROL (D3) 1,000 UNIT (25 MCG) TABLET NG SCH ×3 (11:36→18:21)
[2020-03-08] MEDS: FLUTICASONE NASAL SPRAY 50 MCG/SPRY 120 SPRAY/16 GM NASL SCH ×2 (11:36→22:22)
[2020-03-08] MEDS: ASPIRIN 81 MG TABLET, CHEWABLE NG SCH (11:36)
[2020-03-08] MEDS: CALCITRIOL 1 MCG/ML ORAL SOLN 15 ML NG SCH (11:37)
[2020-03-08] MEDS: PANTOPRAZOLE SODIUM 40 MG VIAL IV SCH (11:37)
[2020-03-08] MEDS: ALBUMIN HUMAN 12.5 GM/50 ML RTUINJ IV SCH ×3 (11:38→23:21)
--- NOTE | 2020-03-08 14:35 | RADIOLOGY REPORT (SQ) ---
EXAM DESCRIPTION: CT HEAD WITHOUT IMAGES COMPLETED DATE/TIME: 03/08/2020 2:16 pm REASON FOR STUDY: weakness, suspected stroke COMPARISON: CT head 02/08/2020 TECHNIQUE: Axial images acquired through the brain without intravenous contrast. Images reviewed wi th bone, brain and subdural windows. Images stored on PACS. All CT scanners at this facility use dose modulation, iterative reconstruction, and/or weight based d osing when appropriate to reduce radiation dose to as low as reasonably achievable (ALARA). [facility]: Dose Right [facility]: CareDose [facility]: Dose Right [facility]: Teradose 4D [facility]: My Top 10 RADIATION DOSE: CT Rad equipment meets quality standard of care and radiation dose reduction techniq ues were employed. CTDIvol: 48.6 mGy. DLP: 1027 mGy-cm. mGy. LIMITATIONS: None. FINDINGS: VENTRICLES: Prominent. CEREBRUM: No masses. No hemorrhage. No midline shift. Areas of low density in the white matter mos t likely due to chronic micro-vascular ischemic change. No evidence for acute infarction. CEREBELLUM: No masses. No hemorrhage. No alteration of density. No evidence for acute infarction. EXTRAAXIAL SPACES: Mild age-related involutional change. No fluid collections. No masses. ORBITS AND GLOBE: No intra- or extraconal masses. Normal contour of globe without masses. CALVARIUM: No fracture. PARANASAL SINUSES: There is circumferential mucosal thickening in the maxillary sinuses and near comp lete opacification of the sphenoid sinuses. SOFT TISSUES: No mass or hematoma. OTHER: Endotracheal and enteric tubes are partially visualized. IMPRESSION: MILD CHRONIC CHANGES OF ATROPHY AND MICROVASCULAR ISCHEMIA. NO ACUTE PROCESS. EVIDENCE OF ACUTE STROKE: NO. TECHNICAL DOCUMENTATION: JOB ID: [id number] Quality ID # [id number]: Final reports with documentation of one or more dose reduction techniques (e.g., Au tomated exposure control, adjustment of the mA and/or kV according to patient size, use of iterative reconstruction technique) 2010 [employer]- All Rights Reserved Reading location - IP/workstation name: [email or web address]
[2020-03-08] MEDS: NORMAL SALINE 1000 ML 1,000 ML IV PRN (15:37)
[2020-03-08] MEDS: PROPOFOL 1,000 MG/100 ML INFUS..BTL IV PRN ×2 (15:39→21:20)
--- NOTE | 2020-03-08 16:08 | RADIOLOGY REPORT (SQ) ---
EXAM DESCRIPTION: CT CHEST WITHOUT IMAGES COMPLETED DATE/TIME: 03/08/2020 2:40 pm REASON FOR STUDY: acute respiratory failure, COVID pneumonia COMPARISON: None. TECHNIQUE: CT scan performed of the chest without intravenous contrast. Images reviewed with lung, soft tissue and bone windows. Reconstructed coronal and sagittal MPR images reviewed. All images st ored on PACS. All CT scanners at this facility use dose modulation, iterative reconstruction, and/or weight based d osing when appropriate to reduce radiation dose to as low as reasonably achievable (ALARA). [facility]: Dose Right [facility]: CareDose [facility]: Dose Right [facility]: Teradose 4D [facility]: Smart [employer] RADIATION DOSE: CT Rad equipment meets quality standard of care and radiation dose reduction techniq ues were employed. CTDIvol: 19.1 mGy. DLP: 684 mGy-cm. mGy. LIMITATIONS: No technical limitations. FINDINGS: LUNGS AND PLEURA: Extensive bilateral airspace disease with relative sparing of the apical segments of both upper lobes. Good position of endotracheal tube. No pneumothorax. Patent central airways. HILAR AND MEDIASTINAL STRUCTURES: No identified masses or abnormal nodes. No obvious aneurysm. HEART AND VASCULAR STRUCTURES: No aneurysm. No pericardial effusion. UPPER ABDOMEN: Nasogastric tube in the stomach. Limited exam. THYROID AND OTHER SOFT TISSUES: No masses. No adenopathy. BONES: No significant finding. HARDWARE: CABG. OTHER: No other significant findings. IMPRESSION: Extensive bilateral infiltrates. No pneumothorax. TECHNICAL DOCUMENTATION: JOB ID: [id number] Quality ID # [id number]: Final reports with documentation of one or more dose reduction techniques (e.g., Au tomated exposure control, adjustment of the mA and/or kV according to patient size, use of iterative reconstruction technique) 2010 [employer]- All Rights Reserved Reading location - IP/workstation name: [email or web address]
[2020-03-08] MEDS: DOXYCYCLINE HYCLATE 100 MG in DEXTROSE 5%-WATER 250 ML IV SCH (17:04)
[2020-03-08] MEDS: CEFEPIME 1 GM/D5W RTU 1 GM/50 ML RTUPB IV SCH (18:21)
[2020-03-08] MEDS: METOPROLOL TARTRATE 50 MG TABLET NG SCH ×2 (18:22→23:13)
--- NOTE | 2020-03-08 19:56 | PDOC CRITICAL CARE PROG REPORT ---
General Date:: 03/08/20 ICU Day:: 25 Ventilator Day:: 25 Hospital Day:: 29 Resuscitation Status: Full Code Events in the past 12 to 24 Hours:: This 69-year-old male was admitted on 02/08/2020 with dyspnea and leg weakness. He reported falling out of his truck a few days prior to presentation. He transferred to the ICU on 02/12/2020 after requiring endotracheal intubation due to acute respiratory failure secondary to COVID-19 pneumonia. 03/02: Remains intubated. On pressure support ventilation. Actually, from a respiratory mechanics standpoint looks good; however, he has copious purulent secretions emanating from the ET tube circuit. Trach aspirate (02/20) isolated MRSA and yeast. Sacral decubitus is isolating E. coli and other gram-negative rods. On linezolid for MRSA coverage. Not on antibiotic therapy for gram- negative rods. 03/03: Remains intubated. Restarted heparin infusion yesterday; however, the patient had a bout of hemoptysis, prompting immediate discontinuation. He remains hemodynamically stable. He was changed from pressure support ventilation back to SIMV PRVC plus pressure support for the evening. Sacral wound isolated E coli and E cloacae. Previously, aspirate isolated MRSA. Now on Rocephin and Zyvox. He is awake. Off sedation. However, he does not follow commands. 03/04: Remains intubated. Continues to need calcium repletion. Notably, the patient does demonstrate more motor activity today than on previous exams. Awake, alert. Squeezes right hand briskly. 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 Does not wiggle toes on command. Has tolerated pressure support ventilation 01/31 overnight. On Rocephin for sacral wound. On Zyvox for MRSA pneumonia. 03/05: Remains intubated. Calcium slowly improving. Increased vitamin D administration yesterday in light of low vitamin D levels (in spite of daily supplement). Seems to be more interactive. Muscle strength trivially improved. Awake, alert. Continues to squeeze right hand. 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 Does not wiggle toes on command. Still on pressure support ventilation. On Rocephin and Zyvox. Case discussed with Dr. Talley, in anticipation of tracheostomy and sacral wound debridement. 03/06: Remains intubated. Calcium slowly improving. Awake, alert. Still weak overall. Tolerating pressure support ventilation. On Rocephin and Zyvox. WBC 2.5 today. Also, sensitivity profile reveals gram-negative rods resistant to Rocephin (sensitive to cefepime). Anticipating tracheostomy and percutaneous gastrostomy placement on Monday next week. 03/07: Remains intubated. Ionized calcium is finally normalized, 1.14 today. Awake, alert. Very weak. Tolerating pressure support ventilation. On cefepime. WBC 2.1 today. Surgery consultation reviewed. Help appreciated. 03/08: Remains intubated. Back on heparin infusion (started yesterday) without evidence of hemoptysis. Awake, alert. Much more interactive today. Also, notably stronger. 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 However, left upper extremity and right bilateral lower extremities do not move on command. On pressure suppo rt ventilation 01/31. Demonstrating abnormal respiratory pattern with intermittent pauses (but not classic Darío-Manuel, nor Kussmaul). On cefepime. WBC up to 3.7 today. Trach aspirate (03/07) still isolating to gram-negative rods. Hemoglobin 9.4 after transfusion of 1 unit PRBC yesterday afternoon. Review of systems relevant to events:: Respiratory: COVID-19 pneumonia Renal: End-stage renal disease Neurological/musculoskeletal: Weakness Reason for ICU Addmission:: Acute respiratory distress and need for intubation - Medications: Medications reviewed and adjusted accordingly: Yes Sedation:: Precedex Physical Exam Vital Signs: Temp Pulse Resp BP Pulse Ox 98.1 F 130 H 27 H 116/54 L 97 03/08/20 07:59 03/08/20 07:59 03/08/20 07:59 03/08/20 07:59 03/08/20 08:37 Pulse Oximeter Nocturnal Start: 02/08/20 13:55 Freq: RTQ4 Status: Complete Protocol: Document 02/09/20 04:00 LRO (Rec: 02/09/20 05:38 LRO [id number]) Nocturnal Pulse Oximetry Equipment Usage Equipment in Use Oxygen Delivery Method (includes room Room Air air) O2 Sat by Pulse Oximetry (92-100) 95 Continuous SpO2 Machine # 2 Pulse Oximeter Nocturnal Start: 02/10/20 11:39 Freq: RTQ4 Status: Complete Protocol: Document 02/11/20 04:06 PMU (Rec: 02/11/20 05:06 PMU [email or web address]) Nocturnal Pulse Oximetry Equipment Usage Equipment in Use Oxygen Delivery Method (includes room Room Air air) O2 Sat by Pulse Oximetry (92-100) 93 Continuous SpO2 Machine # N2 Intake & Output 03/07/20 03/08/20 03/09/20 06:59 06:59 06:59 Intake Total 710 1007 Output Total 4115 169 5 Balance -3405 838 -5 Weight 110.9 kg 110.7 kg Weight/Height Weight 110.7 kg Height 1.75 m General appearance: PRESENT: no acute distress, obese, well-developed Head exam: PRESENT: atraumatic, normocephalic Eye exam: PRESENT: conjunctiva pink, EOMI, PERRLA. ABSENT: scleral icterus Mouth exam: PRESENT: moist, tongue midline Neck exam: ABSENT: carotid bruit, JVD, lymphadenopathy, thyromegaly Respiratory exam: PRESENT: clear to auscultation kevyn. ABSENT: rales, rhonchi, wheezes Cardiovascular exam: PRESENT: irregular rhythm, tachycardia. ABSENT: diastolic murmur, rubs, systolic murmur Pulses: PRESENT: normal dorsalis pedis pul GI/Abdominal exam: PRESENT: normal bowel sounds, soft. ABSENT: distended, guarding, mass, organolmegaly, rebound, tenderness Extremities exam: PRESENT: full ROM, pedal edema, +2 edema. ABSENT: calf tenderness, clubbing Neurological exam: PRESENT: alert, awake, CN II-XII grossly intact, motor sensory deficit - Sensations intact in all 4 extremities. Motor: Right upper extremity 3/5, left upper extremity 0/5, bilateral lower extremities 0/5.. ABSENT: reflexes normal Psychiatric exam: ABSENT: agitated, anxious Skin exam: PRESENT: other - Sacral decubitus Tubes/Lines: PRESENT: Endotracheal Tube - 02/11, Central Line - IJ 02/11, Dialysis catheter - Left femoral 02/16, Other - Orogastric Laboratory/Radiographs Laboratory Results: 03/08/20 03:00 03/08/20 03:00 03/07/20 03/07/20 03/07/20 11:38 14:31 14:31 WBC 2.3 L RBC 2.50 L Hgb 7.8 L Hct 22.7 L MCV 91 MCH 31.1 MCHC 34.3 RDW 16.9 H Plt Count 160 Seg Neutrophils % 80.4 H Carbonic Acid 0.94 L HCO3/H2CO3 Ratio 25:1 ABG pH 7.50 H ABG pCO2 31.2 L ABG pO2 80.4 ABG HCO3 23.8 ABG O2 Saturation 96.8 ABG Base Excess 0.8 FiO2 40% Sodium 131.3 L Potassium 3.6 Chloride 94 L Carbon Dioxide 27 Anion Gap 10 BUN 65 H Creatinine 2.56 H Est GFR ( Amer) 30 L Glucose 100 Calcium 8.2 L Ionized Calcium Tessa Phosphorus Magnesium Total Bilirubin AST Alkaline Phosphatase Total Protein Albumin Blood Type Antibody Screen 03/07/20 03/07/20 03/08/20 16:00 20:45 03:00 WBC 3.0 L RBC 2.84 L Hgb 8.8 L Hct 26.0 L MCV 92 MCH 31.1 MCHC 33.9 RDW 16.4 H Plt Count 166 Seg Neutrophils % Carbonic Acid HCO3/H2CO3 Ratio ABG pH ABG pCO2 ABG pO2 ABG HCO3 ABG O2 Saturation ABG Base Excess FiO2 Sodium Potassium Chloride Carbon Dioxide Anion Gap BUN Creatinine Est GFR ( Amer) Glucose Calcium Ionized Calcium Tessa 1.17 Phosphorus Magnesium Total Bilirubin AST Alkaline Phosphatase Total Protein Albumin Blood Type O POSITIVE Antibody Screen NEGATIVE 03/08/20 03/08/20 03/08/20 03:00 03:00 03:00 WBC 3.7 L RBC 2.98 L Hgb 9.4 L Hct 27.6 L MCV 93 MCH 31.7 MCHC 34.2 RDW 16.9 H Plt Count 172 Seg Neutrophils % 77.5 Carbonic Acid 1.04 L HCO3/H2CO3 Ratio 24:1 ABG pH 7.48 H ABG pCO2 34.6 L ABG pO2 70.5 L ABG HCO3 25.4 H ABG O2 Saturation 95.4 ABG Base Excess 1.9 FiO2 4 L Sodium 130.8 L Potassium 4.1 Chloride 95 L Carbon Dioxide 26 Anion Gap 10 BUN 70 H Creatinine 2.64 H Est GFR ( Amer) 29 L Glucose 101 Calcium 8.3 L Ionized Calcium Tessa Phosphorus 2.8 Magnesium 2.0 Total Bilirubin 0.8 AST 87 H Alkaline Phosphatase 175 H Total Protein 4.3 L Albumin 2.3 L Blood Type Antibody Screen 03/07/20 14:17 Blood Blood Culture (PCR) - Final Enterobacter Cloacae Complex 02/08/20 02/08/20 02/21/20 09:49 13:11 04:50 Troponin I 0.160 0.155 NT-Pro-B Natriuret Pep 5540 H 78812 H 02/26/20 05:35 Troponin I NT-Pro-B Natriuret Pep 48012 H Impressions: Hip/Pelvis X-Ray 02/08/20 00:00 IMPRESSION: No acute fracture. Severe degenerative changes of the left hip. Knee X-Ray 02/08/20 00:00 IMPRESSION: NEGATIVE STUDY OF THE RIGHT KNEE. NO RADIOGRAPHIC EVIDENCE OF ACUTE INJURY. Head CT 02/08/20 10:19 IMPRESSION: MILD CHRONIC CHANGES OF ATROPHY AND MICROVASCULAR ISCHEMIA. NO ACUTE PROCESS. EVIDENCE OF ACUTE STROKE: NO. Renal Ultrasound 02/21/20 00:00 IMPRESSION: Increased echogenicity of the renal parenchyma suggestive of underlying chronic medical renal disease. There is no hydronephrosis. There is a Ryan catheter within the urinary bladder. Chest X-Ray 03/08/20 05:00 IMPRESSION: No significant change. No pneumothorax. All labs, radiographs, diagnostic studies and EKGs were personally reviewed: Yes In addition, reports of radiographic and diagnostic studies were read: Yes Assessment and Plan - Diagnosis (1) Acute respiratory failure due to COVID-19 Is this a current diagnosis for this admission?: Yes Plan: Continue PSB 8/8. Wean FiO2 as tolerated to keep SPO2 93+%. Continue Precedex. Continue budesonide. Treated with hydroxychloroquine/dexamethasone. Repeat COVID-19 test pending. Consult PT/OT. (2) Abnormal neurological exam Is this a current diagnosis for this admission?: Yes Plan: CT head without contrast. (3) Gram negative sepsis Is this a current diagnosis for this admission?: Yes Plan: Secondary to wound infection/sacral decubitus, which isolated E. coli and E. cloacae. Continue cefepime. Tracheal aspirate and blood cultures are continuing to grow gram-negative rods despite cefepime (which is being renally dosed). Add doxycycline. Repeat blood cultures in a.m. If still positive, the patient will need to have a line holiday and have his lines changed out. (4) Decubitus ulcer of sacral region, unstageable Is this a current diagnosis for this admission?: Yes Plan: Present on admission. General surgery help appreciated. (5) Nonischemic cardiomyopathy Is this a current diagnosis for this admission?: Yes (6) Atrial fibrillation Qualifiers: Atrial fibrillation type: persistent (not longstanding) Qualified Code(s): I48.19 - Other persistent atrial fibrillation; I48.1 - Persistent atrial fibrillation Is this a current diagnosis for this admission?: Yes Plan: * On heparin infusion. * Of note, the patient is apparently on Toprol-XL 50 mg p.o. daily at home in addition to Entresto. There are no calcium channel nando on his home medications. In light of the difficulties we are experiencing with hypocalcemia in this patient, we temporarily discontinued calcium channel bl ockers. * Rate control with metoprolol. Change 100 mg NG twice daily to 50 mg NG every 6 hours. Hold dose for hypotension or bradycardia. If additional rate control as needed, restart diltiazem. (7) Vitamin D deficiency Is this a current diagnosis for this admission?: Yes Plan: Vitamin D3 2000 units NG 3 times daily (8) Hypocalcemia Is this a current diagnosis for this admission?: Yes (9) Hyponatremia Is this a current diagnosis for this admission?: Yes (10) Occult blood in stools Is this a current diagnosis for this admission?: Yes (11) CKD (chronic kidney disease) stage 5, GFR less than 15 ml/min Is this a current diagnosis for this admission?: Yes Plan: Hemodialysis per nephrology. Nephrology assistance appreciated. (12) Abnormal LFTs Is this a current diagnosis for this admission?: Yes (13) Normocytic anemia Is this a current diagnosis for this admission?: Yes (14) MRSA pneumonia Qualifiers: Laterality: bilateral Lung location: unspecified part of lung Qualified Code(s): J15.212 - Pneumonia due to Methicillin resistant Staphylococcus aureus Is this a current diagnosis for this admission?: Yes (15) Pneumonia due to gram-negative bacteria Is this a current diagnosis for this admission?: Yes Critical Time Critical Time (minutes): 90 Level of Care: ICU -: 1. The care of a critical patient is a dynamic process. This note is a access services representative synopsis but static in nature. The timeframe for treatments given in order is not necessarily the actual time these treatments may have been done. 2. This patient requires critical care secondary to ongoing requirements for therapy not offered or safe outside the critical care environment. Transfer to a lower level of care will result in altered life or limb morbidity and mortality. 3. Multidisciplinary rounds completed. 4. ABCDE bundle addressed.
[2020-03-08] MEDS: ATORVASTATIN CALCIUM 40 MG TABLET NG SCH (22:23)
[2020-03-09] MEDS: ALBUMIN HUMAN 12.5 GM/50 ML RTUINJ IV SCH ×3 (03:52→13:30)
[2020-03-09] MEDS: DOXYCYCLINE HYCLATE 100 MG in DEXTROSE 5%-WATER 250 ML IV SCH ×2 (03:53→17:39)
[2020-03-09] MEDS: PROPOFOL 1,000 MG/100 ML INFUS..BTL IV PRN (03:55)
[2020-03-09] MEDS: HEPARIN SODIUM,PORCINE/D5W 25,000 UNIT/250 ML RTUINJ IV PRN (03:56)
[2020-03-09 04:37] LABS: ARTERIAL BLOOD BASE EXCESS -0.9 mmol/L; ARTERIAL BLOOD H2CO3 1.03 mmol/L (1.05-1.35); ARTERIAL BLOOD HCO3 22.9 mmol/L (20-24); ARTERIAL BLOOD O2 SATURATION 95.9 % (94-98); ARTERIAL BLOOD PCO2 34.2 mmHg (35-45); ARTERIAL BLOOD PH 7.44 (7.35-7.45); ARTERIAL BLOOD PO2 76.3 mmHg (80-100)
[2020-03-09 04:40] LABS: HEMATOCRIT 26.9 % (37.9-51.0); MEAN CORPUSCULAR HEMOGLOBIN 31.5 pg (27.0-33.4); MEAN CORPUSCULAR HGB CONC 33.7 g/dL (32.0-36.0); MEAN CORPUSCULAR VOLUME 94 fl (80-97); PLATELET COUNT 183 10^3/uL (150-450); RED BLOOD COUNT 2.87 10^6/uL (4.35-5.55); RED CELL DISTRIBUTION WIDTH 16.7 % (11.5-14.0); WHITE BLOOD COUNT 3.7 10^3/uL (4.0-10.5)
[2020-03-09 04:48] LABS: ARTERIAL BLOOD FIO2 35%
[2020-03-09 04:55] LABS: ALBUMIN 2.4 g/dL (3.5-5.0); ALKALINE PHOSPHATASE 154 U/L (38-126); ANION GAP 13 (5-19); ASPARTATE AMINO TRANSFERASE 76 U/L (17-59); BILIRUBIN,DIRECT 0.7 mg/dL (0.0-0.4); BILIRUBIN,TOTAL 0.7 mg/dL (0.2-1.3); BLOOD UREA NITROGEN 81 mg/dL (7-20); CALCIUM 8.8 mg/dL (8.4-10.2); CARBON DIOXIDE 25 mmol/L (22-30); CHLORIDE 93 mmol/L (98-107); GLUCOSE 116 mg/dL (75-110); PHOSPHORUS 2.9 mg/dL (2.5-4.5); POTASSIUM 3.6 mmol/L (3.6-5.0); TOTAL PROTEIN 4.7 g/dL (6.3-8.2)
[2020-03-09] MEDS ORDERED: NORMAL SALINE 1000 ML 1,000 ML IV PRN (05:00)
[2020-03-09] MEDS ORDERED: EPOETIN ALFA-EPBX 20,000 UNIT in SYRINGE, DISPOSABLE, 1 EACH IV PRN (05:00)
[2020-03-09] MEDS ORDERED: HEPARIN SOD (PORCINE) 1,000 UNIT/ML 10 ML VIAL IV PRN (05:00)
[2020-03-09 05:02] LABS: PREALBUMIN 12.7 mg/dL (17.6-36.0)
[2020-03-09 05:02] LABS: AMORPHOUS SEDIMENT,URINE TRACE /HPF; APPEARANCE,URINE CLOUDY; BILIRUBIN,URINE NEGATIVE (NEGATIVE); COLOR,URINE YELLOW; GLUCOSE, URINE NEGATIVE (NEGATIVE); KETONES,URINE NEGATIVE (NEGATIVE); LEUKOCYTE ESTERASE,URINE SMALL (NEGATIVE); NITRITE,URINE NEGATIVE (NEGATIVE); PROTEIN,URINE 100 mg/dL (NEGATIVE); URINE SPECIFIC GRAVITY 1.016; UROBILINOGEN,URINE NEGATIVE mg/dL (<2.0)
[2020-03-09] MEDS ORDERED: CALCIUM GLUC IN NACL, ISO-OSM 1 GM/50 ML RTUPB IV ONE (05:27)
[2020-03-09 05:28] LABS: ABSOLUTE LYMPHOCYTES# (MANUAL) 0.4 10^3/uL (0.5-4.7); ABSOLUTE MONOCYTES # (MANUAL) 0.3 10^3/uL (0.1-1.4); BAND NEUTROPHILS % (MANUAL) 3 % (3-5); BASOPHILS % (MANUAL) 0 % (0-2); EOSINOPHILS % (MANUAL) 2 % (0-6); LYMPHOCYTES % (MANUAL) 11 % (13-45); MONOCYTES % (MANUAL) 9 % (3-13); SEGMENTED NEUTROPHILS % (MAN) 75 % (42-78); TOTAL CELLS COUNTED 100
[2020-03-09 05:29] LABS: ANISOCYTOSIS 1+; PLATELET COMMENT ADEQUATE; POLYCHROMASIA SLIGHT
[2020-03-09 05:31] LABS: BURR CELLS SLIGHT
[2020-03-09 05:33] LABS: OVALOCYTES SLIGHT
[2020-03-09] MEDS: INSULIN LISPRO 100 UNIT/ML 3 ML VIAL SUBCUT SCH ×3 (06:32→17:49)
[2020-03-09] MEDS: CALCIUM ACETATE 667 MG CAPSULE PO SCH ×3 (06:33→22:09)
[2020-03-09] MEDS: METOPROLOL TARTRATE PF/INJ 5 MG/5 ML SDV IV PRN ×5 (06:34→19:51)
[2020-03-09] MEDS: METOPROLOL TARTRATE 50 MG TABLET NG SCH ×3 (06:34→17:39)
--- NOTE | 2020-03-09 09:16 | PDOC CRITICAL CARE PROG REPORT ---
General Date:: 03/09/20 Resuscitation Status: Full Code Events in the past 12 to 24 Hours:: Less responsive. HD today, trach tomorrow. Review of systems relevant to events:: Neurological, renal, CV. Reason for ICU Addmission:: Acute respiratory distress and need for intubation - Medications: Medications reviewed and adjusted accordingly: Yes Vasopressors:: None Sedation:: Diprivan Physical Exam Vital Signs: Temp Pulse Resp BP Pulse Ox 97.5 F 108 H 27 H 126/68 H 95 03/09/20 07:51 03/09/20 07:52 03/09/20 07:51 03/09/20 07:51 03/09/20 07:51 Pulse Oximeter Nocturnal Start: 02/08/20 13:55 Freq: RTQ4 Status: Complete Protocol: Document 02/09/20 04:00 LRO (Rec: 02/09/20 05:38 LRO [id number]) Nocturnal Pulse Oximetry Equipment Usage Equipment in Use Oxygen Delivery Method (includes room Room Air air) O2 Sat by Pulse Oximetry (92-100) 95 Continuous SpO2 Machine # 2 Pulse Oximeter Nocturnal Start: 02/10/20 11:39 Freq: RTQ4 Status: Complete Protocol: Document 02/11/20 04:06 PMU (Rec: 02/11/20 05:06 PMU [email or web address]) Nocturnal Pulse Oximetry Equipment Usage Equipment in Use Oxygen Delivery Method (includes room Room Air air) O2 Sat by Pulse Oximetry (92-100) 93 Continuous SpO2 Machine # N2 Intake & Output 03/08/20 03/09/20 03/10/20 06:59 06:59 06:59 Intake Total 1457 2946 Output Total 169 705 0 Balance 1288 2241 0 Weight 110.7 kg 114 kg Weight/Height Weight 114 kg Height 5 ft 9 in General appearance: PRESENT: no acute distress, obese Head exam: PRESENT: atraumatic, normocephalic Eye exam: PRESENT: conjunctiva pink, EOMI, PERRLA. ABSENT: scleral icterus Ear exam: PRESENT: normal external ear exam Mouth exam: PRESENT: moist, tongue midline Respiratory exam: PRESENT: clear to auscultation kevyn, decreased breath sounds. ABSENT: rales, rhonchi, wheezes Cardiovascular exam: PRESENT: RRR, tachycardia. ABSENT: diastolic murmur, rubs, systolic murmur GI/Abdominal exam: PRESENT: normal bowel sounds, soft. ABSENT: distended, guarding, mass, organolmegaly, rebound, tenderness Rectal exam: PRESENT: deferred Gentrourinary exam: PRESENT: indwelling catheter Extremities exam: PRESENT: +2 edema, other - Heel ulcers L>R Musculoskeletal exam: PRESENT: normal inspection Neurological exam: PRESENT: altered, awake, other - He can track and respond some to pain. No cough reflex. Skin exam: PRESENT: other - Heel ulcers and unstagable sacral decubitus. Tubes/Lines: PRESENT: Endotracheal Tube, Central Line, Dialysis catheter, [place] stic Tube Laboratory/Radiographs Laboratory Results: 03/09/20 04:00 03/09/20 04:00 03/08/20 03/09/20 03/09/20 03:00 04:00 04:00 WBC 3.7 L RBC 2.87 L Hgb 9.0 L Hct 26.9 L MCV 94 MCH 31.5 MCHC 33.7 RDW 16.7 H Plt Count 183 Seg Neutrophils % Not Reportable Carbonic Acid HCO3/H2CO3 Ratio ABG pH ABG pCO2 ABG pO2 ABG HCO3 ABG O2 Saturation ABG Base Excess FiO2 Sodium 130.5 L Potassium 3.6 Chloride 93 L Carbon Dioxide 25 Anion Gap 13 BUN 81 H Creatinine 3.03 H Est GFR ( Amer) 25 L Glucose 116 H Calcium 8.8 Ionized Calcium Tessa Phosphorus 2.9 Magnesium 2.3 Total Bilirubin 0.7 AST 76 H Alkaline Phosphatase 154 H Total Protein 4.7 L Albumin 2.4 L Prealbumin 12.7 L Triglycerides 89 Urine Color Urine Appearance Urine pH Ur Specific [place] Urine Protein Urine Glucose (UA) Urine Ketones Urine Blood Urine Nitrite Ur Leukocyte Esterase Urine WBC (Auto) Urine RBC (Auto) 03/09/20 03/09/20 04:15 04:15 WBC RBC Hgb Hct MCV MCH MCHC RDW Plt Count Seg Neutrophils % Carbonic Acid 1.03 L HCO3/H2CO3 Ratio 22:1 ABG pH 7.44 ABG pCO2 34.2 L ABG pO2 76.3 L ABG HCO3 22.9 ABG O2 Saturation 95.9 ABG Base Excess -0.9 FiO2 35% Sodium Potassium Chloride Carbon Dioxide Anion Gap BUN Creatinine Est GFR ( Amer) Glucose Calcium Ionized Calcium Tessa 1.19 Phosphorus Magnesium Total Bilirubin AST Alkaline Phosphatase Total Protein Albumin Prealbumin Triglycerides Urine Color YELLOW Urine Appearance CLOUDY Urine pH 5.0 Ur Specific [place] 1.016 Urine Protein 100 H Urine Glucose (UA) NEGATIVE Urine Ketones NEGATIVE Urine Blood LARGE H Urine Nitrite NEGATIVE Ur Leukocyte Esterase SMALL H Urine WBC (Auto) 93 Urine RBC (Auto) 175 03/07/20 14:17 Blood Blood Culture (PCR) - Final Enterobacter Cloacae Complex 02/08/20 02/08/20 02/21/20 09:49 13:11 04:50 Troponin I 0.160 0.155 NT-Pro-B Natriuret Pep 5540 H 82072 H 02/26/20 03/09/20 05:35 04:00 Troponin I NT-Pro-B Natriuret Pep 63744 H 95827 H Impressions: Hip/Pelvis X-Ray 02/08/20 00:00 IMPRESSION: No acute fracture. Severe degenerative changes of the left hip. Knee X-Ray 02/08/20 00:00 IMPRESSION: NEGATIVE STUDY OF THE RIGHT KNEE. NO RADIOGRAPHIC EVIDENCE OF ACUTE INJURY. Renal Ultrasound 02/21/20 00:00 IMPRESSION: Increased echogenicity of the renal parenchyma suggestive of underlying chronic medical renal disease. There is no hydronephrosis. There is a Ryan catheter within the urinary bladder. Chest X-Ray 03/08/20 05:00 IMPRESSION: No significant change. No pneumothorax. Head CT 03/08/20 08:56 IMPRESSION: MILD CHRONIC CHANGES OF ATROPHY AND MICROVASCULAR ISCHEMIA. NO ACUTE PROCESS. EVIDENCE OF ACUTE STROKE: NO. Chest CT 03/08/20 10:12 IMPRESSION: Extensive bilateral infiltrates. No pneumothorax. All labs, radiographs, diagnostic studies and EKGs were personally reviewed: Yes In addition, reports of radiographic and diagnostic studies were read: Yes Assessment and Plan - Diagnosis (1) Acute respiratory failure due to COVID-19 Is this a current diagnosis for this admission?: Yes Plan: Awaiting Covid test. If negative, trach and PEG in OR, if positive in room 4 in ICU. (2) Tachypnea Is this a current diagnosis for this admission?: Yes Plan: Resolved (3) Acute on chronic diastolic CHF (congestive heart failure) Is this a current diagnosis for this admission?: Yes Plan: Although he is edematous there does not seem to be evidence of CHF. (4) Coronary artery disease Qualifiers: Coronary Disease-Associated Artery/Lesion type: unspecified vessel or lesion type [place] vs. transplanted heart: [place] heart Associated angina: with unspecified angina Qualified Code(s): I25.119 - Atherosclerotic heart disease of [place] coronary artery with unspecified angina pectoris Is this a current diagnosis for this admission?: Yes Plan: Inactive. (5) Elevated brain natriuretic peptide (BNP) level Is this a current diagnosis for this admission?: Yes Plan: Still quite high possibly because of continued Covid. (6) MARK (obstructive sleep apnea) Is this a current diagnosis for this admission?: Yes Plan: Not an issue intubated. (7) Obesity (BMI 30-39.9) Is this a current diagnosis for this admission?: Yes Plan: Chronic (8) Anemia Qualifiers: Anemia type: iron deficiency Is this a current diagnosis for this admission?: Yes Plan: Not active at this point. (9) CKD (chronic kidney disease) stage 5, GFR less than 15 ml/min Is this a current diagnosis for this admission?: Yes Plan: To receive HD today. (10) Hypocalcemia Is this a current diagnosis for this admission?: Yes Plan: Vit D deficient. Improving. Plan Summary: He is still needing vent support. Trach tomorrow. Stop diprivan and assess neuro exam off sedation. Critical Time Critical Time (minutes): 35 Level of Care: ICU Anticipated discharge: SNF Anticipated DC Timeframe: Other -: 1. The care of a critical patient is a dynamic process. This note is a business process representative synopsis but static in nature. The timeframe for treatments given in order is not necessarily the actual time these treatments may have been done. 2. This patient requires critical care secondary to ongoing requirements for therapy not offered or safe outside the critical care environment. Transfer to a lower level of care will result in altered life or limb morbidity and mortality. 3. Multidisciplinary rounds completed. 4. ABCDE bundle addressed.
[2020-03-09] MEDS ORDERED: ALBUTEROL SULFATE 0.083% NEB 2.5 MG/3 ML AMPUL NEB PRN (10:06)
[2020-03-09] MEDS ORDERED: ONDANSETRON HCL INJ/PF 4 MG/2 ML SDV IV PRN (10:07)
[2020-03-09] MEDS ORDERED: MAG HYDROX/AL HYDROX/SIMETH SUSP 30 ML UDCUP NG PRN (10:07)
[2020-03-09] MEDS: INSULIN GLARGINE,HUM.REC.ANLOG 1,000 UNIT/10 ML VIAL SUBCUT SCH (10:14)
[2020-03-09] MEDS: AMINO AC/PROTEIN HYDR/WHEY PRO 11 GM/45 ML PKT NG SCH ×3 (10:14→17:38)
[2020-03-09] MEDS: FLUTICASONE NASAL SPRAY 50 MCG/SPRY 120 SPRAY/16 GM NASL SCH ×2 (10:17→21:54)
[2020-03-09] MEDS: CALCITRIOL 1 MCG/ML ORAL SOLN 15 ML NG SCH (10:18)
[2020-03-09] MEDS: ZINC SULFATE 220 MG CAPSULE NG SCH (10:18)
[2020-03-09] MEDS: CHOLECALCIFEROL (D3) 1,000 UNIT (25 MCG) TABLET NG SCH ×3 (10:18→17:39)
[2020-03-09] MEDS: ASPIRIN 81 MG TABLET, CHEWABLE NG SCH (10:18)
[2020-03-09] MEDS: ASCORBIC ACID 500 MG TABLET NG SCH ×2 (10:19→17:39)
[2020-03-09] MEDS: SODIUM BICARBONATE 650 MG TABLET NG SCH ×2 (10:19→22:09)
[2020-03-09] MEDS: PANTOPRAZOLE SODIUM 40 MG VIAL IV SCH (12:38)
--- NOTE | 2020-03-09 13:30 | PDOC PROGRESS REPORT ---
Subjective Progress Note for:: 03/09/20 Subjective:: I am seeing the patient during initiation of dialysis this afternoon. He remains to be intubated without much response but continues to be tracking. He is passing urine output of 100 to 200 mL which is an improvement compared to previous but still not adequate enough. His fluid retention appears to be decreased. Surgery has seen him for planned tracheostomy and PEG tube placement. Reason For Visit: WEAKNESS,ELEVATED TROPONIN,CHF Physical Exam Vital Signs: Temp Pulse Resp BP Pulse Ox 98.2 F 122 H 18 166/80 H 96 03/09/20 11:56 03/09/20 11:56 03/09/20 11:56 03/09/20 11:56 03/09/20 11:56 Pulse Oximeter Nocturnal Start: 02/08/20 13:55 Freq: RTQ4 Status: Complete Protocol: Document 02/09/20 04:00 LRO (Rec: 02/09/20 05:38 LRO [email or web address]) Nocturnal Pulse Oximetry Equipment Usage Equipment in Use Oxygen Delivery Method (includes room Room Air air) O2 Sat by Pulse Oximetry (92-100) 95 Continuous SpO2 Machine # 2 Pulse Oximeter Nocturnal Start: 02/10/20 11:39 Freq: RTQ4 Status: Complete Protocol: Document 02/11/20 04:06 PMU (Rec: 02/11/20 05:06 PMU [email or web address]) Nocturnal Pulse Oximetry Equipment Usage Equipment in Use Oxygen Delivery Method (includes room Room Air air) O2 Sat by Pulse Oximetry (92-100) 93 Continuous SpO2 Machine # N2 Intake & Output 03/08/20 03/09/20 03/10/20 06:59 06:59 06:59 Intake Total 1457 2946 57 Output Total 169 705 0 Balance 1288 2241 57 Weight 110.7 kg 114 kg 114 kg Vitals during dialysis: Blood pressure 166/80, heart rate of 119, oxygen saturation of 96%, respiration of 18 on mechanical ventilator. Exam: Exam limited due to COVID-19 infection on isolation. General appearance: [PRESENT: Still intubated Eye exam: PRESENT: Eyes open with pale conjunctivae Respiratory exam: [PRESENT: Diminished and coarse breath sounds. ABSENT: crackles, rales, Cardiovascular exam: [PRESENT: Regular rate rhythm -+S1, +S2. ABSENT: diastolic murmur, systolic murmur Extremities exam: Improved grade 1 bilateral lower extremity pitting edema Neurological exam: PRESENT: Eyes open but not much response . Skin exam: PRESENT: dry, warm, Cardiovascular exam: PRESENT: +S1, +S2 GI/Abdominal exam: PRESENT: normal bowel sounds, soft. ABSENT: organomegaly, tenderness Results Laboratory Results: 03/09/20 04:00 03/09/20 04:00 03/08/20 03/09/20 03/09/20 03:00 04:00 04:00 WBC 3.7 L RBC 2.87 L Hgb 9.0 L Hct 26.9 L MCV 94 MCH 31.5 MCHC 33.7 RDW 16.7 H Plt Count 183 Seg Neutrophils % Not Reportable Carbonic Acid HCO3/H2CO3 Ratio ABG pH ABG pCO2 ABG pO2 ABG HCO3 ABG O2 Saturation ABG Base Excess FiO2 Sodium 130.5 L Potassium 3.6 Chloride 93 L Carbon Dioxide 25 Anion Gap 13 BUN 81 H Creatinine 3.03 H Est GFR ( Amer) 25 L Glucose 116 H Calcium 8.8 Ionized Calcium Tessa Phosphorus 2.9 Magnesium 2.3 Total Bilirubin 0.7 AST 76 H Alkaline Phosphatase 154 H Total Protein 4.7 L Albumin 2.4 L Prealbumin 12.7 L Triglycerides 89 Urine Color Urine Appearance Urine pH Ur Specific [place] Urine Protein Urine Glucose (UA) Urine Ketones Urine Blood Urine Nitrite Ur Leukocyte Esterase Urine WBC (Auto) Urine RBC (Auto) 03/09/20 03/09/20 04:15 04:15 WBC RBC Hgb Hct MCV MCH MCHC RDW Plt Count Seg Neutrophils % Carbonic Acid 1.03 L HCO3/H2CO3 Ratio 22:1 ABG pH 7.44 ABG pCO2 34.2 L ABG pO2 76.3 L ABG HCO3 22.9 ABG O2 Saturation 95.9 ABG Base Excess -0.9 FiO2 35% Sodium Potassium Chloride Carbon Dioxide Anion Gap BUN Creatinine Est GFR ( Amer) Glucose Calcium Ionized Calcium [place]essa 1.19 Phosphorus Magnesium Total Bilirubin AST Alkaline Phosphatase Total Protein Albumin Prealbumin Triglycerides Urine Color YELLOW Urine Appearance CLOUDY Urine pH 5.0 Ur Specific [place] 1.016 Urine Protein 100 H Urine Glucose (UA) NEGATIVE Urine Ketones NEGATIVE Urine Blood LARGE H Urine Nitrite NEGATIVE Ur Leukocyte Esterase SMALL H Urine WBC (Auto) 93 Urine RBC (Auto) 175 03/07/20 14:31 Ryan Catheter Urine Culture - Final NO GROWTH 2 DAYS 03/07/20 14:17 Blood Blood Culture (PCR) - Final Enterobacter Cloacae Complex 02/08/20 02/08/20 02/21/20 09:49 13:11 04:50 Troponin I 0.160 0.155 NT-Pro-B Natriuret Pep 5540 H 70811 H 02/26/20 03/09/20 05:35 04:00 Troponin I NT-Pro-B Natriuret Pep 61431 H 29947 H Impressions: Hip/Pelvis X-Ray 02/08/20 00:00 IMPRESSION: No acute fracture. Severe degenerative changes of the left hip. Knee X-Ray 02/08/20 00:00 IMPRESSION: NEGATIVE STUDY OF THE RIGHT KNEE. NO RADIOGRAPHIC EVIDENCE OF ACUTE INJURY. Renal Ultrasound 02/21/20 00:00 IMPRESSION: Increased echogenicity of the renal parenchyma suggestive of underlying chronic medical renal disease. There is no hydronephrosis. There is a Ryan catheter within the urinary bladder. Chest X-Ray 03/08/20 05:00 IMPRESSION: No significant change. No pneumothorax. Head CT 03/08/20 08:56 IMPRESSION: MILD CHRONIC CHANGES OF ATROPHY AND MICROVASCULAR ISCHEMIA. NO ACUTE PROCESS. EVIDENCE OF ACUTE STROKE: NO. Chest CT 03/08/20 10:12 IMPRESSION: Extensive bilateral infiltrates. No pneumothorax. Assessment & Plan - Diagnosis (1) Acute kidney injury superimposed on chronic kidney disease Is this a current diagnosis for this admission?: Yes Plan: Patient is still oliguric, although he improved a little, requiring renal replacement therapy. Patient likely to have ATN in the background of ca rdiomyopathy with ejection fraction of 25 to 30% and grade 3 diastolic dysfunction. Continue renal replacement therapy support. We will do dialysis today for 3.5 hours, using the patient's dialysis catheter, with 3 potassium bath, blood flow rate of 300 mL per minute, dialysate flow rate of 800 mL per minute, ultrafiltration 3-3.5 L as tolerated, no heparin and Procrit with 20,000 units during dialysis intravenously. Patient is currently being monitored throughout dialysis treatment. (2) Acute respiratory failure due to COVID-19 Is this a current diagnosis for this admission?: Yes Plan: Per server administrator. Unable to be weaned off ventilator. Plan is to put a tracheostomy tube. (3) Metabolic acidosis Is this a current diagnosis for this admission?: Yes Plan: Controlled on dialysis and sodium bicarbonate per NG. (4) Hypocalcemia Is this a current diagnosis for this admission?: Yes Plan: Currently on calcitriol , and increased dose of vitamin D. Now finally within normal limits. (5) Hyperphosphatemia Is this a current diagnosis for this admission?: Yes Plan: Now controlled on calcium acetate. (6) Anemia Qualifiers: Anemia type: iron deficiency Is this a current diagnosis for this admission?: Yes Plan: Status post EGD showing only gastric erosions. Patient has had multiple blood transfusions. Currently on Retacrit during dialysis. (7) Atrial fibrillation Qualifiers: Atrial fibrillation type: persistent (not longstanding) Qualified Code(s): I48.19 - Other persistent atrial fibrillation; I48.1 - Persistent atrial fibrillation Is this a current diagnosis for this admission?: Yes Plan: Previously on diltiazem drip. Now on maintenance metoprolol. (8) Hypoalbuminemia Is this a current diagnosis for this admission?: Yes Plan: We will give IV albumin during dialysis. (9) COVID-19 virus infection Is this a current diagnosis for this admission?: Yes Plan: Management per server administrator. Repeat testing sent on 03/05 still pending. (10) Hyponatremia Is this a current diagnosis for this admission?: Yes Plan: Due to hypervolemic state. (11) MRSA pneumonia Qualifiers: Laterality: bilateral Lung location: unspecified part of lung Qualified Code(s): J15.212 - Pneumonia due to Methicillin resistant Staphylococcus aureus Is this a current diagnosis for this admission?: Yes Plan: Currently on IV cefepime and doxycycline. (12) Gram negative sepsis Is this a current diagnosis for this admission?: Yes Plan: On March 07 one set of blood culture is positive for gram-negative rods and Enterobacter cloacae with a trach aspirate also positive for gram-negative mery. 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 (13) Nonischemic cardiomyopathy Is this a current diagnosis for this admission?: Yes (14) Decubitus ulcer of sacral region, unstageable Is this a current diagnosis for this admission?: Yes (15) Elevated liver enzymes Is this a current diagnosis for this admission?: Yes (16) MARK (obstructive sleep apnea) Is this a current diagnosis for this admission?: Yes - Time Time with patient: 15-25 minutes
--- NOTE | 2020-03-09 17:11 | PDOC PROGRESS REPORT ---
Subjective Progress Note for:: 03/09/20 Subjective:: 69 M with COVID-19, now ventilator dependent. He is in need of a tracheostomy for continued care. He is currently intubated. A review of systems is unobtainable. Reason For Visit: WEAKNESS,ELEVATED TROPONIN,CHF Physical Exam Vital Signs: Temp Pulse Resp BP Pulse Ox 98.6 F 132 H 23 H 128/72 H 99 03/09/20 16:00 03/09/20 16:00 03/09/20 16:00 03/09/20 16:00 03/09/20 16:00 Pulse Oximeter Nocturnal Start: 02/08/20 13:55 Freq: RTQ4 Status: Complete Protocol: Document 02/09/20 04:00 LRO (Rec: 02/09/20 05:38 LRO [id number]) Nocturnal Pulse Oximetry Equipment Usage Equipment in Use Oxygen Delivery Method (includes room Room Air air) O2 Sat by Pulse Oximetry (92-100) 95 Continuous SpO2 Machine # 2 Pulse Oximeter Nocturnal Start: 02/10/20 11:39 Freq: RTQ4 Status: Complete Protocol: Document 02/11/20 04:06 PMU (Rec: 02/11/20 05:06 PMU [email or web address]) Nocturnal Pulse Oximetry Equipment Usage Equipment in Use Oxygen Delivery Method (includes room Room Air air) O2 Sat by Pulse Oximetry (92-100) 93 Continuous SpO2 Machine # N2 Intake & Output 03/08/20 03/09/20 03/10/20 06:59 06:59 06:59 Intake Total 1457 2946 133 Output Total 242 447 6947 Balance 1288 9231 -9142 Weight 110.7 kg 114 kg 114 kg General appearance: PRESENT: no acute distress, disheveled Head exam: PRESENT: atraumatic, normocephalic Eye exam: PRESENT: PERRLA. ABSENT: scleral icterus Mouth exam: PRESENT: other - ET tube in place Neck exam: ABSENT: thyromegaly, tracheal deviation, tracheostomy Respiratory exam: PRESENT: other - Coarse breath sounds bilaterally. Assisted mechanical ventilation.. ABSENT: tachypnea, unlabored Cardiovascular exam: PRESENT: tachycardia Pulses: PRESENT: normal radial pulses Vascular exam: PRESENT: normal capillary refill GI/Abdominal exam: PRESENT: soft. ABSENT: rigid, tenderness Rectal exam: PRESENT: deferred Extremities exam: ABSENT: clubbing Musculoskeletal exam: ABSENT: deformity Psychiatric exam: ABSENT: agitated Skin exam: ABSENT: erythema, jaundice Results Laboratory Results: 03/09/20 04:00 03/09/20 04:00 03/09/20 03/09/20 03/09/20 04:00 04:00 04:15 WBC 3.7 L RBC 2.87 L Hgb 9.0 L Hct 26.9 L MCV 94 MCH 31.5 MCHC 33.7 RDW 16.7 H Plt Count 183 Seg Neutrophils % Not Reportable Carbonic Acid HCO3/H2CO3 Ratio ABG pH ABG pCO2 ABG pO2 ABG HCO3 ABG O2 Saturation ABG Base Excess FiO2 Sodium 130.5 L Potassium 3.6 Chloride 93 L Carbon Dioxide 25 Anion Gap 13 BUN 81 H Creatinine 3.03 H Est GFR ( Amer) 25 L Glucose 116 H Calcium 8.8 Ionized Calcium Tessa Phosphorus 2.9 Magnesium 2.3 Total Bilirubin 0.7 AST 76 H Alkaline Phosphatase 154 H Total Protein 4.7 L Albumin 2.4 L Prealbumin 12.7 L Urine Color YELLOW Urine Appearance CLOUDY Urine pH 5.0 Ur Specific [place] 1.016 Urine Protein 100 H Urine Glucose (UA) NEGATIVE Urine Ketones NEGATIVE Urine Blood LARGE H Urine Nitrite NEGATIVE Ur Leukocyte Esterase SMALL H Urine WBC (Auto) 93 Urine RBC (Auto) 175 03/09/20 04:15 WBC RBC Hgb Hct MCV MCH MCHC RDW Plt Count Seg Neutrophils % Carbonic Acid 1.03 L HCO3/H2CO3 Ratio 22:1 ABG pH 7.44 ABG pCO2 34.2 L ABG pO2 76.3 L ABG HCO3 22.9 ABG O2 Saturation 95.9 ABG Base Excess -0.9 FiO2 35% Sodium Potassium Chloride Carbon Dioxide Anion Gap BUN Creatinine Est GFR ( Amer) Glucose Calcium Ionized Calcium Tessa 1.19 Phosphorus Magnesium Total Bilirubin AST Alkaline Phosphatase Total Protein Albumin Prealbumin Urine Color Urine Appearance Urine pH Ur Specific [place] Urine Protein Urine Glucose (UA) Urine Ketones Urine Blood Urine Nitrite Ur Leukocyte Esterase Urine WBC (Auto) Urine RBC (Auto) 03/07/20 14:31 Ryan Catheter Urine Culture - Final NO GROWTH 2 DAYS 03/07/20 14:17 Blood Blood Culture (PCR) - Final Enterobacter Cloacae Complex 02/08/20 02/08/20 02/21/20 09:49 13:11 04:50 Troponin I 0.160 0.155 NT-Pro-B Natriuret Pep 5540 H 77164 H 02/26/20 03/09/20 05:35 04:00 Troponin I NT-Pro-B Natriuret Pep 34430 H 70791 H Impressions: Hip/Pelvis X-Ray 02/08/20 00:00 IMPRESSION: No acute fracture. Severe degenerative changes of the left hip. Knee X-Ray 02/08/20 00:00 IMPRESSION: NEGATIVE STUDY OF THE RIGHT KNEE. NO RADIOGRAPHIC EVIDENCE OF ACUTE INJURY. Renal Ultrasound 02/21/20 00:00 IMPRESSION: Increased echogenicity of the renal parenchyma suggestive of underlying chronic medical renal disease. There is no hydronephrosis. There is a Ryan catheter within the urinary bladder. Chest X-Ray 03/08/20 05:00 IMPRESSION: No significant change. No pneumothorax. Head CT 03/08/20 08:56 IMPRESSION: MILD CHRONIC CHANGES OF ATROPHY AND MICROVASCULAR ISCHEMIA. NO ACUTE PROCESS. EVIDENCE OF ACUTE STROKE: NO. Chest CT 03/08/20 10:12 IMPRESSION: Extensive bilateral infiltrates. No pneumothorax. Assessment & Plan - Diagnosis (1) COVID-19 virus infection Is this a current diagnosis for this admission?: Yes (2) Acute respiratory failure with hypoxia Is this a current diagnosis for this admission?: Yes - Time Anticipated Discharge Disposition: Unknown Anticipated Discharge Timeframe: Unknown - Plan Summary Plan Summary: 69-year-old male with COVID-19 infection and ventilator dependence. Patient would certainly benefit from tracheostomy, is a weaning tool. I have discussed tracheostomy with the patient's /medical power of research attorney. She is in agreement with tracheostomy. Risk/benefits discussed, informed consent obtained, and all questions answered. Plan for tracheostomy tomorrow in the ICU, under negative pressure conditions.
[2020-03-09] MEDS: CEFEPIME 1 GM/D5W RTU 1 GM/50 ML RTUPB IV SCH (17:16)
[2020-03-09 21:19] LABS: CALCIUM 8.6 mg/dL (8.4-10.2); GLUCOSE 133 mg/dL (75-110)
[2020-03-09 21:20] LABS: ANION GAP 9 (5-19); CARBON DIOXIDE 27 mmol/L (22-30); CHLORIDE 94 mmol/L (98-107); POTASSIUM 3.5 mmol/L (3.6-5.0)
[2020-03-09 21:31] LABS: BLOOD UREA NITROGEN 47 mg/dL (7-20)
[2020-03-09] MEDS ORDERED: MAGNESIUM SULFATE/D5W 1 GM/100 ML RTUPB IV ONE (22:00)
[2020-03-09] MEDS: ATORVASTATIN CALCIUM 40 MG TABLET NG SCH (22:09)
[2020-03-09] MEDS: POTASSI CL 20 MEQ/50 ML RIDER 20 MEQ/50 ML RTUPB IV SCH (22:10)
[2020-03-10] MEDS ORDERED: METOPROLOL TARTRATE PF/INJ 5 MG/5 ML SDV IV ONE ×2 (00:07→00:17)
[2020-03-10] MEDS: METOPROLOL TARTRATE 50 MG TABLET NG SCH ×4 (00:17→18:16)
[2020-03-10] MEDS: INSULIN LISPRO 100 UNIT/ML 3 ML VIAL SUBCUT SCH ×4 (00:22→18:19)
[2020-03-10] MEDS: POTASSI CL 20 MEQ/50 ML RIDER 20 MEQ/50 ML RTUPB IV SCH ×2 (00:27→02:35)
[2020-03-10] MEDS: DOXYCYCLINE HYCLATE 100 MG in DEXTROSE 5%-WATER 250 ML IV SCH ×2 (04:13→17:30)
[2020-03-10] MEDS: METOPROLOL TARTRATE PF/INJ 5 MG/5 ML SDV IV PRN ×2 (04:15→07:45)
[2020-03-10 04:51] LABS: INTERNATIONAL RATION (INR) 1.15
[2020-03-10 04:57] LABS: HEMATOCRIT 25.9 % (37.9-51.0); HEMOGLOBIN 8.8 g/dL (13.5-17.0); MEAN CORPUSCULAR HEMOGLOBIN 31.5 pg (27.0-33.4); MEAN CORPUSCULAR HGB CONC 34.1 g/dL (32.0-36.0); MEAN CORPUSCULAR VOLUME 93 fl (80-97); PLATELET COUNT 208 10^3/uL (150-450); RED CELL DISTRIBUTION WIDTH 17.1 % (11.5-14.0); WHITE BLOOD COUNT 5.5 10^3/uL (4.0-10.5)
[2020-03-10 05:01] LABS: ANION GAP 9 (5-19); BLOOD UREA NITROGEN 49 mg/dL (7-20); CALCIUM 8.7 mg/dL (8.4-10.2); CARBON DIOXIDE 28 mmol/L (22-30); CHLORIDE 94 mmol/L (98-107); GLUCOSE 84 mg/dL (75-110)
[2020-03-10] MEDS: CALCIUM ACETATE 667 MG CAPSULE PO SCH ×3 (05:21→22:35)
[2020-03-10 05:23] LABS: ABSOLUTE MONOCYTES # (MANUAL) 0.7 10^3/uL (0.1-1.4); BAND NEUTROPHILS % (MANUAL) 4 % (3-5); BASOPHILS % (MANUAL) 0 % (0-2); EOSINOPHILS % (MANUAL) 0 % (0-6); LYMPHOCYTES % (MANUAL) 18 % (13-45); MONOCYTES % (MANUAL) 13 % (3-13); NUCLEATED RED BLOOD CELLS 1 /100 WBC (0); SEGMENTED NEUTROPHILS % (MAN) 65 % (42-78); TOTAL CELLS COUNTED 100
[2020-03-10 05:24] LABS: ANISOCYTOSIS 1+; OVALOCYTES 1+; PLATELET COMMENT ADEQUATE; POIKILOCYTOSIS 1+; POTASSIUM 4.5 mmol/L (3.6-5.0); TOXIC GRANULATION 1+
--- NOTE | 2020-03-10 09:31 | PDOC CRITICAL CARE PROG REPORT ---
General Date:: 03/10/20 Resuscitation Status: Full Code Events in the past 12 to 24 Hours:: Still overly sedated. To have trach today. Review of systems relevant to events:: Neurological. Pulmonary. Reason for ICU Addmission:: Acute respiratory distress and need for intubation - Medications: Medications reviewed and adjusted accordingly: Yes Vasopressors:: None Sedation:: None Physical Exam Vital Signs: Temp Pulse Resp BP Pulse Ox 98.8 F 136 H 25 H 179/164 H 94 03/09/20 16:28 03/09/20 22:00 03/10/20 06:05 03/10/20 06:05 03/10/20 08:00 Pulse Oximeter Nocturnal Start: 02/08/20 13:55 Freq: RTQ4 Status: Complete Protocol: Document 02/09/20 04:00 LRO (Rec: 02/09/20 05:38 LRO [id number]) Nocturnal Pulse Oximetry Equipment Usage Equipment in Use Oxygen Delivery Method (includes room Room Air air) O2 Sat by Pulse Oximetry (92-100) 95 Continuous SpO2 Machine # 2 Pulse Oximeter Nocturnal Start: 02/10/20 11:39 Freq: RTQ4 Status: Complete Protocol: Document 02/11/20 04:06 PMU (Rec: 02/11/20 05:06 PMU [email or web address]) Nocturnal Pulse Oximetry Equipment Usage Equipment in Use Oxygen Delivery Method (includes room Room Air air) O2 Sat by Pulse Oximetry (92-100) 93 Continuous SpO2 Machine # N2 Intake & Output 03/09/20 03/10/20 03/11/20 06:59 06:59 06:59 Intake Total 3196 1371 Output Total 705 3728 45 Balance 2491 -2357 -45 Weight 114 kg 116.7 kg Weight/Height Weight 116.7 kg Height 5 ft 9 in General appearance: PRESENT: no acute distress, obese Head exam: PRESENT: atraumatic, normocephalic Eye exam: PRESENT: conjunctiva pink, EOMI, PERRLA. ABSENT: scleral icterus Ear exam: PRESENT: normal external ear exam Mouth exam: PRESENT: moist, tongue midline Respiratory exam: PRESENT: clear to auscultation kevyn. ABSENT: rales, rhonchi, wheezes Cardiovascular exam: PRESENT: RRR, tachycardia. ABSENT: diastolic murmur, rubs, systolic murmur GI/Abdominal exam: PRESENT: normal bowel sounds, soft. ABSENT: distended, guarding, mass, organolmegaly, rebound, tenderness Rectal exam: PRESENT: deferred Gentrourinary exam: PRESENT: indwelling catheter Extremities exam: PRESENT: +1 edema Musculoskeletal exam: PRESENT: normal inspection Neurological exam: PRESENT: altered, awake, CN II-XII grossly intact Skin exam: PRESENT: other - Wound on both heels and sacrum Tubes/Lines: PRESENT: Endotracheal Tube, Central Line, Dialysis catheter, Nasog astic Tube Laboratory/Radiographs Laboratory Results: 03/10/20 04:15 03/10/20 04:15 03/09/20 03/10/20 03/10/20 19:50 04:15 04:15 WBC 5.5 RBC 2.80 L Hgb 8.8 L Hct 25.9 L MCV 93 MCH 31.5 MCHC 34.1 RDW 17.1 H Plt Count 208 Seg Neutrophils % Not Reportable Sodium 130.2 L 131.3 L Potassium 3.5 L 4.5 D Chloride 94 L 94 L Carbon Dioxide 27 28 Anion Gap 9 9 BUN 47 H D 49 H Creatinine 1.86 H 2.16 H Est GFR ( Amer) 44 L 37 L Glucose 133 H 84 Calcium 8.6 8.7 Magnesium 2.0 2.2 03/07/20 14:31 Ryan Catheter Urine Culture - Final NO GROWTH 2 DAYS 03/07/20 14:17 Blood Blood Culture (PCR) - Final Enterobacter Cloacae Complex 02/08/20 02/08/20 02/21/20 09:49 13:11 04:50 Troponin I 0.160 0.155 NT-Pro-B Natriuret Pep 5540 H 15532 H 02/26/20 03/09/20 05:35 04:00 Troponin I NT-Pro-B Natriuret Pep 13275 H 73886 H Impressions: Hip/Pelvis X-Ray 02/08/20 00:00 IMPRESSION: No acute fracture. Severe degenerative changes of the left hip. Knee X-Ray 02/08/20 00:00 IMPRESSION: NEGATIVE STUDY OF THE RIGHT KNEE. NO RADIOGRAPHIC EVIDENCE OF ACUTE INJURY. Renal Ultrasound 02/21/20 00:00 IMPRESSION: Increased echogenicity of the renal parenchyma suggestive of underlying chronic medical renal disease. There is no hydronephrosis. There is a Ryan catheter within the urinary bladder. Chest X-Ray 03/08/20 05:00 IMPRESSION: No significant change. No pneumothorax. Head CT 03/08/20 08:56 IMPRESSION: MILD CHRONIC CHANGES OF ATROPHY AND MICROVASCULAR ISCHEMIA. NO ACUTE PROCESS. EVIDENCE OF ACUTE STROKE: NO. Chest CT 03/08/20 10:12 IMPRESSION: Extensive bilateral infiltrates. No pneumothorax. All labs, radiographs, diagnostic studies and EKGs were personally reviewed: Yes In addition, reports of radiographic and diagnostic studies were read: Yes Assessment and Plan - Diagnosis (1) Acute respiratory failure due to COVID-19 Is this a current diagnosis for this admission?: Yes Plan: To get a tracheotomy and then wean. (2) Tachypnea Is this a current diagnosis for this admission?: Yes Plan: Improved (3) Acute on chronic diastolic CHF (congestive heart failure) Is this a current diagnosis for this admission?: Yes Plan: Inactive (4) Coronary artery disease Qualifiers: Coronary Disease-Associated Artery/Lesion type: unspecified vessel or lesion type [place] vs. transplanted heart: [place] heart Associated angina: with unspecified angina Qualified Code(s): I25.119 - Atherosclerotic heart disease of [place] coronary artery with unspecified angina pectoris Is this a current diagnosis for this admission?: Yes Plan: Stable (5) Elevated brain natriuretic peptide (BNP) level Is this a current diagnosis for this admission?: Yes Plan: Elevated with Covid. (6) MARK (obstructive sleep apnea) Is this a current diagnosis for this admission?: Yes (7) Obesity (BMI 30-39.9) Is this a current diagnosis for this admission?: Yes Plan: Chronic, slightly less weight. (8) Anemia Qualifiers: Anemia type: iron deficiency Is this a current diagnosis for this admission?: Yes Plan: Stable (9) CKD (chronic kidney disease) stage 5, GFR less than 15 ml/min Is this a current diagnosis for this admission?: Yes Plan: Not in need of HD today. (10) Hypocalcemia Is this a current diagnosis for this admission?: Yes Plan: Cardizem stopped. HR elevated. Cristian start IV cardizem. When trached back to NG Plan Summary: Trac and weaning today. Critical Time Critical Time (minutes): 35 Level of Care: ICU Anticipated discharge: SNF Anticipated DC Timeframe: Other -: 1. The care of a critical patient is a dynamic process. This note is a life assurance representative synopsis but static in nature. The timeframe for treatments given in order is not necessarily the actual time these treatments may have been done. 2. This patient requires critical care secondary to ongoing requirements for therapy not offered or safe outside the critical care environment. Transfer to a lower level of care will result in altered life or limb morbidity and mortality. 3. Multidisciplinary rounds completed. 4. ABCDE bundle addressed.
[2020-03-10] MEDS: ASCORBIC ACID 500 MG TABLET NG SCH ×2 (09:40→18:17)
[2020-03-10] MEDS: SODIUM BICARBONATE 650 MG TABLET NG SCH ×2 (09:40→22:35)
[2020-03-10] MEDS: ASPIRIN 81 MG TABLET, CHEWABLE NG SCH (09:40)
[2020-03-10] MEDS: AMINO AC/PROTEIN HYDR/WHEY PRO 11 GM/45 ML PKT NG SCH ×3 (09:40→18:17)
[2020-03-10] MEDS: INSULIN GLARGINE,HUM.REC.ANLOG 1,000 UNIT/10 ML VIAL SUBCUT SCH (09:40)
[2020-03-10] MEDS: CHOLECALCIFEROL (D3) 1,000 UNIT (25 MCG) TABLET NG SCH ×3 (09:41→18:17)
[2020-03-10] MEDS: ZINC SULFATE 220 MG CAPSULE NG SCH (09:41)
[2020-03-10] MEDS ORDERED: DILTIAZEM HCL INJ 25 MG/5 ML VIAL IV ONE ×2 (10:00→13:00)
[2020-03-10] MEDS: FLUTICASONE NASAL SPRAY 50 MCG/SPRY 120 SPRAY/16 GM NASL SCH ×2 (10:02→22:36)
[2020-03-10] MEDS ORDERED: MIDAZOLAM 2 MG/2 ML INJ ONE (12:20)
[2020-03-10] MEDS ORDERED: EPHEDRINE SULFATE INJ 50 MG/1 ML AMPULE ONE (12:20)
[2020-03-10] MEDS ORDERED: PROPOFOL INJ 200 MG/20 ML VIAL IV ONE (12:20)
[2020-03-10] MEDS ORDERED: FENTANYL CITRATE INJ/PF 250 MCG/5 ML AMPULE ONE (12:20)
[2020-03-10] MEDS: CALCITRIOL 1 MCG/ML ORAL SOLN 15 ML NG SCH (17:40)
[2020-03-10] MEDS ORDERED: DILTIAZEM HCL INJ 25 MG/5 ML VIAL ONE (17:51)
[2020-03-10] MEDS: PANTOPRAZOLE SODIUM 40 MG VIAL IV SCH (18:14)
[2020-03-10] MEDS: CEFEPIME 1 GM/D5W RTU 1 GM/50 ML RTUPB IV SCH (18:16)
--- NOTE | 2020-03-10 19:15 | RADIOLOGY REPORT (SQ) ---
EXAM DESCRIPTION: KUB/ABDOMEN (SINGLE VIEW) IMAGES COMPLETED DATE/TIME: 03/10/2020 5:45 pm REASON FOR STUDY: NGT placement COMPARISON: None. NUMBER OF VIEWS: One view. TECHNIQUE: Supine radiographic image of the abdomen acquired. LIMITATIONS: None. FINDINGS: Esophagogastric tube tip and side-hole are below the diaphragm within the stomach. Nonspe cific bowel gas pattern with patchy areas of gas within the colon and stomach. No dilated loops of b owel. Layering right pleural effusion. Postoperative changes in mediastinum. IMPRESSION: Nonspecific bowel gas pattern. Esophagogastric tube tip and side-hole are within the sto mach. TECHNICAL DOCUMENTATION: JOB ID: [id number] 2010 [email or web address]- All Rights Reserved Reading location - IP/workstation name: [email or web address]
[2020-03-10] MEDS ORDERED: ALBUMIN HUMAN 12.5 GM/50 ML RTUINJ IV ONE (19:25)
[2020-03-10] MEDS ORDERED: DILTIAZEM HCL 90 MG TABLET PO SCH (19:30)
[2020-03-10] MEDS ORDERED: ENOXAPARIN SODIUM INJ 80 MG/0.8 ML DISP.SYRIN SUBCUT ONE (19:31)
--- NOTE | 2020-03-10 20:38 | RADIOLOGY REPORT (SQ) ---
EXAM DESCRIPTION: X-ray, single view of the chest CLINICAL HISTORY: 69 years Male, evaluate SQ air COMPARISON: Single view of the chest 03/08/2020 FINDINGS: Exam is overpenetrated which limits diagnostic utility. Lungs: Worsening opacification is noted predominantly in the right mid and lower lung zone. There is persistent opacification in the left lung base. Probable right pleural effusion. No obvious pneumothorax. Mediastinum: Mediastinum is shifted into the right chest and this most likely is related to the volume loss in the right lung. Tracheostomy tube, right IJ central line and NG tube do not appear to be changed. There is postsurgical change in the heart with an excluder clip noted. Heart size is enlarged. Mediastinum is widened. Bones: Sternal wires are in place. No definitive subcutaneous emphysema is seen. IMPRESSION: Multifocal consolidation. This has significantly worsened in the right chest. No definitive pneumothorax or subcutaneous emphysema.
[2020-03-10] MEDS: DEXAMETHASONE SOD PHOS INJ 10 MG/1 ML VIAL IV SCH (22:40)
[2020-03-11] MEDS: METOPROLOL TARTRATE 50 MG TABLET NG SCH ×4 (00:38→17:09)
[2020-03-11] MEDS: METOPROLOL TARTRATE PF/INJ 5 MG/5 ML SDV IV PRN ×2 (00:38→05:29)
[2020-03-11] MEDS: INSULIN LISPRO 100 UNIT/ML 3 ML VIAL SUBCUT SCH ×4 (00:38→17:05)
[2020-03-11] MEDS: DOXYCYCLINE HYCLATE 100 MG in DEXTROSE 5%-WATER 250 ML IV SCH ×2 (03:35→16:30)
[2020-03-11 04:19] LABS: APPEARANCE,URINE CLOUDY; BILIRUBIN,URINE NEGATIVE (NEGATIVE); COLOR,URINE AMBER; GLUCOSE, URINE NEGATIVE (NEGATIVE); KETONES,URINE NEGATIVE (NEGATIVE); LEUKOCYTE ESTERASE,URINE SMALL (NEGATIVE); NITRITE,URINE NEGATIVE (NEGATIVE); PROTEIN,URINE 100 mg/dL (NEGATIVE); URINE SPECIFIC GRAVITY 1.017; UROBILINOGEN,URINE NEGATIVE mg/dL (<2.0)
[2020-03-11 04:30] LABS: ANION GAP 13 (5-19); BLOOD UREA NITROGEN 56 mg/dL (7-20); CALCIUM 8.7 mg/dL (8.4-10.2); CARBON DIOXIDE 24 mmol/L (22-30); CHLORIDE 93 mmol/L (98-107); GLUCOSE 114 mg/dL (75-110); POTASSIUM 5.2 mmol/L (3.6-5.0)
[2020-03-11] MEDS ORDERED: NORMAL SALINE 500 ML IV PRN (04:50)
[2020-03-11] MEDS ORDERED: HEPARIN SOD (PORCINE) 1,000 UNIT/ML 10 ML VIAL IV PRN (05:00)
[2020-03-11] MEDS ORDERED: EPOETIN ALFA-EPBX 2,000 UNIT, EPOETIN ALFA-EPBX 3,000 UNIT, EPOETIN ALFA-EPBX 20,000 UN... IV PRN ×4 (05:00)
[2020-03-11] MEDS ORDERED: NORMAL SALINE 1000 ML 1,000 ML IV PRN (05:00)
[2020-03-11] MEDS ORDERED: FENTANYL CITRATE INJ/PF 100 MCG/2 ML AMPUL ONE (05:30)
[2020-03-11] MEDS ORDERED: LEVALBUTEROL HCL NEB 1.25 MG/3 ML AMPUL NEB ONE (05:40)
[2020-03-11] MEDS ORDERED: METOPROLOL TARTRATE PF/INJ 5 MG/5 ML SDV IV ONE (05:45)
[2020-03-11] MEDS: CALCIUM ACETATE 667 MG CAPSULE PO SCH ×2 (05:58→14:05)
[2020-03-11 06:04] LABS: HEMATOCRIT 28.7 % (37.9-51.0); HEMOGLOBIN 9.7 g/dL (13.5-17.0); MEAN CORPUSCULAR HEMOGLOBIN 31.9 pg (27.0-33.4); MEAN CORPUSCULAR HGB CONC 33.8 g/dL (32.0-36.0); MEAN CORPUSCULAR VOLUME 94 fl (80-97); PLATELET COUNT 268 10^3/uL (150-450); RED BLOOD COUNT 3.04 10^6/uL (4.35-5.55); RED CELL DISTRIBUTION WIDTH 17.5 % (11.5-14.0)
[2020-03-11 06:07] LABS: ABSOLUTE LYMPHOCYTES# (MANUAL) 0.4 10^3/uL (0.5-4.7); ABSOLUTE MONOCYTES # (MANUAL) 0.2 10^3/uL (0.1-1.4); BAND NEUTROPHILS % (MANUAL) 2 % (3-5); BASOPHILS % (MANUAL) 0 % (0-2); EOSINOPHILS % (MANUAL) 0 % (0-6); LYMPHOCYTES % (MANUAL) 3 % (13-45); MONOCYTES % (MANUAL) 2 % (3-13); SEGMENTED NEUTROPHILS % (MAN) 91 % (42-78); TOTAL CELLS COUNTED 100
[2020-03-11 06:08] LABS: ANISOCYTOSIS 1+; MYELOCYTES % (MANUAL) 1 % (0); PLATELET COMMENT ADEQUATE; POLYCHROMASIA SLIGHT
[2020-03-11] MEDS: FENTANYL CITRATE INJ/PF 100 MCG/2 ML AMPUL IV PRN (06:10)
[2020-03-11 06:28] LABS: ARTERIAL BLOOD BASE EXCESS -4.3 mmol/L; ARTERIAL BLOOD H2CO3 1.23 mmol/L (1.05-1.35); ARTERIAL BLOOD HCO3 21.3 mmol/L (20-24); ARTERIAL BLOOD O2 SATURATION 97.1 % (94-98); ARTERIAL BLOOD PCO2 40.9 mmHg (35-45); ARTERIAL BLOOD PH 7.33 (7.35-7.45); ARTERIAL BLOOD PO2 98.6 mmHg (80-100); ARTERIAL BLOOD TOTAL CO2 22.5 mmol/L (23-27)
[2020-03-11 06:30] LABS: ARTERIAL BLOOD FIO2 100%
--- NOTE | 2020-03-11 07:30 | Operative Report ---
Nonrecallable Operative Report DATE OF SURGERY: 03/10/20 PREOPERATIVE DIAGNOSIS: COVID-19 infection. Vent depenence POSTOPERATIVE DIAGNOSIS: same OPERATION: tracheostomy SURGEON: SWATI GUILLEN ANESTHESIA: GA TISSUE REMOVED OR ALTERED: none COMPLICATIONS: none apparent ESTIMATED BLOOD LOSS: minimal PROCEDURE: Drains/implants: 8 Shiley tracheostomy. Procedure in detail: After informed consent was obtained, the patient was laid in the supine position in the intensive care unit. The area of the neck was prepped and draped in a normal sterile fashion. A curvilinear transverse incision was created in the anterior neck. Dissection was carried through the subcutaneous tissues using sharp and blunt dissection. The midline strap muscles were divided in the midline. They were retracted laterally. Dissection was carried down to the trachea. The anterior trachea was cleaned of tissue. The trach hook was used in the cricoid cartilage to elevate the trachea superiorly and anteriorly. The isthmus of the thyroid was divided in the superior portion, to accommodate exposure of the second and third tracheal rings. The second tracheal ring was encircled using 0 Ethibond suture, as was the third tracheal ring. These were used as stay sutures. Division of the trachea was undertaken after several other maneuvers were performed. The patient was removed from the ventilator, and an Ambu bag was attached. The patient was hyperventilated, to achieve 100% saturation, with 100% oxygen. After this was accomplished, the trachea was opened with a scalpel and the ET tube was removed. The stay sutures were held and the 8 Shiley tracheostomy was inserted and one quick motion. The cuff was inflated, and the Ambu bag was attached to the tracheostomy. The patient ventilated easily. He was then reattached to the ventilator. The tracheostomy was sutured to the anterior neck using 0 Prolene suture. A trach strap was then secured around the neck. The procedure at this time was concluded. All sponge, instrument, and needle counts were correct x2. Condition: Critical in ICU.
[2020-03-11] MEDS: LEVALBUTEROL HCL NEB 1.25 MG/3 ML AMPUL NEB SCH ×3 (08:25→20:41)
--- NOTE | 2020-03-11 08:38 | PDOC CRITICAL CARE PROG REPORT ---
General Date:: 03/11/20 ICU Day:: 28 Ventilator Day:: 28 Hospital Day:: 32 Resuscitation Status: Full Code Events in the past 12 to 24 Hours:: Received a trach. Rapid atrial fibrillation. Review of systems relevant to events:: Pulmonary, neurological. Reason for ICU Addmission:: Acute respiratory distress and need for intubation. Now trached but still on the vent on fairly high support. - Medications: Medications reviewed and adjusted accordingly: Yes Vasopressors:: None Sedation:: Precedex Physical Exam Vital Signs: Temp Pulse Resp BP Pulse Ox 98.8 F 119 H 31 H 112/80 96 03/09/20 16:28 03/10/20 22:00 03/11/20 06:39 03/11/20 06:39 03/11/20 06:39 Pulse Oximeter Nocturnal Start: 02/08/20 13:55 Freq: RTQ4 Status: Complete Protocol: Document 02/09/20 04:00 LRO (Rec: 02/09/20 05:38 LRO [email or web address]) Nocturnal Pulse Oximetry Equipment Usage Equipment in Use Oxygen Delivery Method (includes room Room Air air) O2 Sat by Pulse Oximetry (92-100) 95 Continuous SpO2 Machine # 2 Pulse Oximeter Nocturnal Start: 02/10/20 11:39 Freq: RTQ4 Status: Complete Protocol: Document 02/11/20 04:06 PMU (Rec: 02/11/20 05:06 PMU [email or web address]) Nocturnal Pulse Oximetry Equipment Usage Equipment in Use Oxygen Delivery Method (includes room Room Air air) O2 Sat by Pulse Oximetry (92-100) 93 Continuous SpO2 Machine # N2 Intake & Output 03/10/20 03/11/20 03/12/20 06:59 06:59 06:59 Intake Total 1421 910 Output Total 3728 810 Balance -2307 100 Weight 116.7 kg 116 kg Weight/Height Weight 116 kg Height 5 ft 9 in General appearance: PRESENT: mild distress, obese Head exam: PRESENT: atraumatic, normocephalic Eye exam: PRESENT: conjunctiva pink, EOMI, PERRLA. ABSENT: scleral icterus Ear exam: PRESENT: normal external ear exam Mouth exam: PRESENT: moist, tongue midline Respiratory exam: PRESENT: accessory muscle use, clear to auscultation kevyn, decreased breath sounds, symmetrical, tachypnea. ABSENT: rales, rhonchi, wheezes Cardiovascular exam: PRESENT: irregular rhythm, tachycardia. ABSENT: diastolic murmur, rubs, systolic murmur GI/Abdominal exam: PRESENT: normal bowel sounds, soft. ABSENT: distended, guarding, mass, organolmegaly, rebound, tenderness Rectal exam: PRESENT: deferred Gentrourinary exam: PRESENT: indwelling catheter Extremities exam: PRESENT: +1 edema, other - Heel ulcers. HD catheter site clean. Musculoskeletal exam: PRESENT: normal inspection Neurological exam: PRESENT: altered, CN II-XII grossly intact, other - He seems to pay attention to speaker. Does not respond moves R hand semipurposefully. Skin exam: PRESENT: other - Hell ulcers and sacral decubitis Tubes/Lines: PRESENT: Central Line, Dialysis catheter, Nasogastic Tube, Other - Tracheotomy Laboratory/Radiographs Laboratory Results: 03/11/20 05:00 03/11/20 03:40 03/11/20 03/11/20 03/11/20 03:40 03:40 03:40 WBC RBC Hgb Hct MCV MCH MCHC RDW Plt Count Seg Neutrophils % Carbonic Acid HCO3/H2CO3 Ratio ABG pH ABG pCO2 ABG pO2 ABG HCO3 ABG O2 Saturation ABG Base Excess FiO2 Sodium 130.2 L Potassium 5.2 H Chloride 93 L Carbon Dioxide 24 Anion Gap 13 BUN 56 H Creatinine 2.38 H Est GFR ( Amer) 33 L Glucose 114 H Calcium 8.7 Ionized Calcium Tessa 1.11 L Magnesium Urine Color LEISA Urine Appearance CLOUDY Urine pH 5.0 Ur Specific [place] 1.017 Urine Protein 100 H Urine Glucose (UA) NEGATIVE Urine Ketones NEGATIVE Urine Blood LARGE H Urine Nitrite NEGATIVE Ur Leukocyte Esterase SMALL H Urine WBC (Auto) 34 Urine RBC (Auto) 127 03/11/20 03/11/20 03/11/20 03:40 05:00 06:00 WBC 10.0 RBC 3.04 L Hgb 9.7 L Hct 28.7 L MCV 94 MCH 31.9 MCHC 33.8 RDW 17.5 H Plt Count 268 Seg Neutrophils % Not Reportable Carbonic Acid 1.23 HCO3/H2CO3 Ratio 17:1 ABG pH 7.33 L ABG pCO2 40.9 ABG pO2 98.6 ABG HCO3 21.3 ABG O2 Saturation 97.1 ABG Base Excess -4.3 FiO2 100% Sodium Potassium Chloride Carbon Dioxide Anion Gap BUN Creatinine Est GFR ( Amer) Glucose Calcium Ionized Calcium Tessa Magnesium 2.1 Urine Color Urine Appearance Urine pH Ur Specific [place] Urine Protein Urine Glucose (UA) Urine Ketones Urine Blood Urine Nitrite Ur Leukocyte Esterase Urine WBC (Auto) Urine RBC (Auto) 03/07/20 14:17 Blood Blood Culture (PCR) - Final Enterobacter Cloacae Complex 03/07/20 14:31 Tracheal Aspirate Gram Stain - Final 03/07/20 14:31 Tracheal Aspirate Sputum Culture - Final Enterobacter Cloacae [employer] Normal Betsey Absent 02/08/20 02/08/20 02/21/20 09:49 13:11 04:50 Troponin I 0.160 0.155 NT-Pro-B Natriuret Pep 5540 H 09584 H 02/26/20 03/09/20 05:35 04:00 Troponin I NT-Pro-B Natriuret Pep 31653 H 88554 H Impressions: Hip/Pelvis X-Ray 02/08/20 00:00 IMPRESSION: No acute fracture. Severe degenerative changes of the left hip. Knee X-Ray 02/08/20 00:00 IMPRESSION: NEGATIVE STUDY OF THE RIGHT KNEE. NO RADIOGRAPHIC EVIDENCE OF ACUTE INJURY. Renal Ultrasound 02/21/20 00:00 IMPRESSION: Increased echogenicity of the renal parenchyma suggestive of underlying chronic medical renal disease. There is no hydronephrosis. There is a Ryan catheter within the urinary bladder. Head CT 03/08/20 08:56 IMPRESSION: MILD CHRONIC CHANGES OF ATROPHY AND MICROVASCULAR ISCHEMIA. NO ACU TE PROCESS. EVIDENCE OF ACUTE STROKE: NO. Chest CT 03/08/20 10:12 IMPRESSION: Extensive bilateral infiltrates. No pneumothorax. KUB X-Ray 03/10/20 00:00 IMPRESSION: Nonspecific bowel gas pattern. Esophagogastric tube tip and side- hole are within the stomach. EKG: trial fibrillation at a lower rate than 150, at 120-125. Occassional PVCs. All labs, radiographs, diagnostic studies and EKGs were personally reviewed: Yes In addition, reports of radiographic and diagnostic studies were read: Yes Assessment and Plan - Diagnosis (1) Acute respiratory failure due to COVID-19 Is this a current diagnosis for this admission?: Yes Plan: This is undoubtably causing the bulk of his illness. He is still COVID positive after more than a month. (2) Tachypnea Is this a current diagnosis for this admission?: Yes Plan: He is on a rate of 18. 100% O2, PEEP 10. I weaned him slightly to PEEP 8, RR 15 and we will next try the FiO2 as his saturation is 98% but on 100%. (3) Acute on chronic diastolic CHF (congestive heart failure) Is this a current diagnosis for this admission?: Yes Plan: Not active. (4) Coronary artery disease Qualifiers: Coronary Disease-Associated Artery/Lesion type: unspecified vessel or lesion type [place] vs. transplanted heart: [place] heart Associated angina: with unspecified angina Qualified Code(s): I25.119 - Atherosclerotic heart disease of [place] coronary artery with unspecified angina pectoris Is this a current diagnosis for this admission?: Yes Plan: Not active. (5) Elevated brain natriuretic peptide (BNP) level Is this a current diagnosis for this admission?: Yes Plan: Due to both Covid and cardiomyopathy. (6) MARK (obstructive sleep apnea) Is this a current diagnosis for this admission?: Yes (7) Obesity (BMI 30-39.9) Is this a current diagnosis for this admission?: Yes Plan: Chronic (8) Anemia Qualifiers: Anemia type: iron deficiency Is this a current diagnosis for this admission?: Yes Plan: Stable. (9) CKD (chronic kidney disease) stage 5, GFR less than 15 ml/min Is this a current diagnosis for this admission?: Yes Plan: On HD (10) Hypocalcemia Is this a current diagnosis for this admission?: Yes Plan: Much improved. Plan Summary: We will try weaning today but with this level of support I dont think we will make much progress. Critical Time Critical Time (minutes): 35 Level of Care: ICU Anticipated discharge: SNF Anticipated DC Timeframe: Other -: 1. The care of a critical patient is a dynamic process. This note is a contact center representative synopsis but static in nature. The timeframe for treatments given in order is not necessarily the actual time these treatments may have been done. 2. This patient requires critical care secondary to ongoing requirements for therapy not offered or safe outside the critical care environment. Transfer to a lower level of care will result in altered life or limb morbidity and mortality. 3. Multidisciplinary rounds completed. 4. ABCDE bundle addressed.
--- NOTE | 2020-03-11 08:41 | RADIOLOGY REPORT (SQ) ---
EXAM DESCRIPTION: CHEST SINGLE VIEW IMAGES COMPLETED DATE/TIME: 03/11/2020 7:04 am REASON FOR STUDY: vented COMPARISON: 03/10/2020 NUMBER OF VIEWS: One view. TECHNIQUE: Single frontal radiographic image of the chest acquired. LIMITATIONS: None. FINDINGS: LUNGS AND PLEURA: Improved aeration in the right base. No other interval change. No pneu mothorax. Persistent upper and lower lobe infiltrate. MEDIASTINUM AND HILAR STRUCTURES: Stable heart size and mediastinal structures. HEART AND VASCULAR STRUCTURES: Stable appearance. SUPPORT DEVICES: Appropriate location without change. BONES: No acute findings. OTHER: No other significant finding. IMPRESSION: Support lines and tubes are stable in appearance. Improved aeration in the right base. Persistent upper and lower lobe airspace disease. TECHNICAL DOCUMENTATION: JOB ID: [id number] [employer]- All Rights Reserved Reading location - IP/workstation name: [email or web address]
[2020-03-11] MEDS: SODIUM BICARBONATE 650 MG TABLET NG SCH (09:16)
[2020-03-11] MEDS: ZINC SULFATE 220 MG CAPSULE NG SCH (09:16)
[2020-03-11] MEDS: CHOLECALCIFEROL (D3) 1,000 UNIT (25 MCG) TABLET NG SCH ×3 (09:16→17:04)
[2020-03-11] MEDS: ASCORBIC ACID 500 MG TABLET NG SCH ×2 (09:16→17:05)
[2020-03-11] MEDS: DEXAMETHASONE SOD PHOS INJ 10 MG/1 ML VIAL IV SCH (09:16)
[2020-03-11] MEDS: INSULIN GLARGINE,HUM.REC.ANLOG 1,000 UNIT/10 ML VIAL SUBCUT SCH (09:17)
[2020-03-11] MEDS: AMINO AC/PROTEIN HYDR/WHEY PRO 11 GM/45 ML PKT NG SCH ×3 (09:17→17:05)
[2020-03-11] MEDS: FLUTICASONE NASAL SPRAY 50 MCG/SPRY 120 SPRAY/16 GM NASL SCH (09:17)
[2020-03-11] MEDS: ASPIRIN 81 MG TABLET, CHEWABLE NG SCH (09:17)
[2020-03-11] MEDS: CALCITRIOL 1 MCG/ML ORAL SOLN 15 ML NG SCH (09:17)
[2020-03-11 13:22] LABS: PATH REVIEW PATHOLOGIST REVIEWED
--- NOTE | 2020-03-11 14:31 | PDOC PROGRESS REPORT ---
Subjective Progress Note for:: 03/11/20 Reason For Visit: Patient seen today in the ICU on dialysis. Patient is status post tracheostomy and PEG tube placement now. Current continues to remain intubated and sedated. Labs and medications were reviewed. Discussions were done with the nurse as well as with precipitate washer. Dialysis orders were reviewed with the treating dialysis nurse. Physical Exam Vital Signs: Temp Pulse Resp BP Pulse Ox 98.8 F 124 H 22 H 120/77 98 03/09/20 16:28 03/11/20 10:00 03/11/20 10:10 03/11/20 10:10 03/11/20 10:10 Pulse Oximeter Nocturnal Start: 02/08/20 13:55 Freq: RTQ4 Status: Complete Protocol: Document 02/09/20 04:00 LRO (Rec: 02/09/20 05:38 LRO [id number]) Nocturnal Pulse Oximetry Equipment Usage Equipment in Use Oxygen Delivery Method (includes room Room Air air) O2 Sat by Pulse Oximetry (92-100) 95 Continuous SpO2 Machine # 2 Pulse Oximeter Nocturnal Start: 02/10/20 11:39 Freq: RTQ4 Status: Complete Protocol: Document 02/11/20 04:06 PMU (Rec: 02/11/20 05:06 PMU [email or web address]) Nocturnal Pulse Oximetry Equipment Usage Equipment in Use Oxygen Delivery Method (includes room Room Air air) O2 Sat by Pulse Oximetry (92-100) 93 Continuous SpO2 Machine # N2 Intake & Output 03/10/20 03/11/20 03/12/20 06:59 06:59 06:59 Intake Total 1421 910 1 Output Total 3728 810 0 Balance -2307 100 1 Weight 116.7 kg 116 kg 116 kg Exam: Remains status post tracheostomy and intubated and sedated. Cardiovascular exam: PRESENT: +S1, +S2 GI/Abdominal exam: PRESENT: normal bowel sounds, soft. ABSENT: organomegaly, tenderness Results Laboratory Results: 03/11/20 05:00 03/11/20 03:40 03/11/20 03/11/20 03/11/20 03:40 03:40 03:40 WBC RBC Hgb Hct MCV MCH MCHC RDW Plt Count Seg Neutrophils % Carbonic Acid HCO3/H2CO3 Ratio ABG pH ABG pCO2 ABG pO2 ABG HCO3 ABG O2 Saturation ABG Base Excess FiO2 Sodium 130.2 L Potassium 5.2 H Chloride 93 L Carbon Dioxide 24 Anion Gap 13 BUN 56 H Creatinine 2.38 H Est GFR ( Amer) 33 L Glucose 114 H Calcium 8.7 Ionized Calcium Tessa 1.11 L Magnesium Urine Color LEISA Urine Appearance CLOUDY Urine pH 5.0 Ur Specific [place] 1.017 Urine Protein 100 H Urine Glucose (UA) NEGATIVE Urine Ketones NEGATIVE Urine Blood LARGE H Urine Nitrite NEGATIVE Ur Leukocyte Esterase SMALL H Urine WBC (Auto) 34 Urine RBC (Auto) 127 03/11/20 03/11/20 03/11/20 03:40 05:00 06:00 WBC 10.0 RBC 3.04 L Hgb 9.7 L Hct 28.7 L MCV 94 MCH 31.9 MCHC 33.8 RDW 17.5 H Plt Count 268 Seg Neutrophils % Not Reportable Carbonic Acid 1.23 HCO3/H2CO3 Ratio 17:1 ABG pH 7.33 L ABG pCO2 40.9 ABG pO2 98.6 ABG HCO3 21.3 ABG O2 Saturation 97.1 ABG Base Excess -4.3 FiO2 100% Sodium Potassium Chloride Carbon Dioxide Anion Gap BUN Creatinine Est GFR ( Amer) Glucose Calcium Ionized Calcium Tessa Magnesium 2.1 Urine Color Urine Appearance Urine pH Ur Specific [place] Urine Protein Urine Glucose (UA) Urine Ketones Urine Blood Urine Nitrite Ur Leukocyte Esterase Urine WBC (Auto) Urine RBC (Auto) 03/09/20 04:15 Tracheal Aspirate Gram Stain - Final 03/07/20 14:17 Blood Blood Culture (PCR) - Final Enterobacter Cloacae Complex 03/07/20 14:17 Blood Blood Culture - Final Enterobacter Cloacae 03/07/20 14:31 Tracheal Aspirate Gram Stain - Final 03/07/20 14:31 Tracheal Aspirate Sputum Culture - Final Enterobacter Cloacae [employer] Normal Betsey Absent 02/08/20 02/08/20 02/21/20 09:49 13:11 04:50 Troponin I 0.160 0.155 NT-Pro-B Natriuret Pep 5540 H 83560 H 02/26/20 03/09/20 05:35 04:00 Troponin I NT-Pro-B Natriuret Pep 37185 H 91402 H Impressions: Hip/Pelvis X-Ray 02/08/20 00:00 IMPRESSION: No acute fracture. Severe degenerative changes of the left hip. Knee X-Ray 02/08/20 00:00 IMPRESSION: NEGATIVE STUDY OF THE RIGHT KNEE. NO RADIOGRAPHIC EVIDENCE OF ACUTE INJURY. Renal Ultrasound 02/21/20 00:00 IMPRESSION: Increased echogenicity of the renal parenchyma suggestive of underlying chronic medical renal disease. There is no hydronephrosis. There is a Ryan catheter within the urinary bladder. Head CT 03/08/20 08:56 IMPRESSION: MILD CHRONIC CHANGES OF ATROPHY AND MICROVASCULAR ISCHEMIA. NO ACUTE PROCESS. EVIDENCE OF ACUTE STROKE: NO. Chest CT 03/08/20 10:12 IMPRESSION: Extensive bilateral infiltrates. No pneumothorax. KUB X-Ray 03/10/20 00:00 IMPRESSION: Nonspecific bowel gas pattern. Esophagogastric tube tip and side- hole are within the stomach. Chest X-Ray 03/11/20 06:00 IMPRESSION: Support lines and tubes are stable in appearance. Improved aeration in the right base. Persistent upper and lower lobe airspace disease. Assessment & Plan - Diagnosis (1) Acute kidney injury superimposed on chronic kidney disease Is this a current diagnosis for this admission?: Yes Plan: Acute on chronic kidney disease with patient having underlying baseline creatinine of around 1.7-2. Currently oligo-anuric. Patient has got anasarca wi th deteriorating renal numbers in the background of ischemic cardiomyopathy with low EF. Initiated hemodialysis through a temporary catheter. Dialysis is ongoing. Plan to remove 3-4 L of fluid as tolerated. Discussed and reviewed dialysis orders with the treating dialysis nurse. (2) Acute on chronic combined systolic (congestive) and diastolic (congestive) heart failure Is this a current diagnosis for this admission?: Yes Plan: Decompensated.. However some of the anasarca we see is because of third spacing given his very low albumin levels. (3) Acute respiratory failure due to COVID-19 Is this a current diagnosis for this admission?: Yes Plan: Remains intubated and sedated. Now status post tracheostomy. Being managed by precipitate washer. Monitor. (4) Hypotension Is this a current diagnosis for this admission?: Yes Plan: Currently stable. Monitor. (5) Hypocalcemia Is this a current diagnosis for this admission?: Yes Plan: Stable. Monitor. (6) Metabolic acidosis Is this a current diagnosis for this admission?: Yes Plan: Stable on HD. (7) Atrial fibrillation Qualifiers: Atrial fibrillation type: persistent (not longstanding) Qualified Code(s): I48.19 - Other persistent atrial fibrillation; I48.1 - Persistent atrial fibrillation Is this a current diagnosis for this admission?: Yes Plan: Currently rate controlled. Monitor. (8) Hyperglycemia Plan: As per precipitate washer. (9) COVID-19 virus infection Is this a current diagnosis for this admission?: Yes Plan: As per precipitate washer. (10) Anemia Qualifiers: Anemia type: iron deficiency Is this a current diagnosis for this admission?: Yes Plan: .Patient has received multiple blood transfusions. Started erythropoietin. Monitor. (11) Hyponatremia Is this a current diagnosis for this admission?: Yes Plan: See response to fluid removal. Monitor.
[2020-03-11] MEDS: CEFEPIME 1 GM/D5W RTU 1 GM/50 ML RTUPB IV SCH (17:04)
[2020-03-12] MEDS: METOPROLOL TARTRATE PF/INJ 5 MG/5 ML SDV IV PRN ×4 (00:43→22:30)
[2020-03-12] MEDS: METOPROLOL TARTRATE 50 MG TABLET NG SCH ×5 (00:50→23:40)
[2020-03-12] MEDS: INSULIN LISPRO 100 UNIT/ML 3 ML VIAL SUBCUT SCH ×6 (00:50→23:41)
[2020-03-12] MEDS: SODIUM BICARBONATE 650 MG TABLET NG SCH ×3 (00:51→21:01)
[2020-03-12] MEDS: CALCIUM ACETATE 667 MG CAPSULE PO SCH ×4 (00:51→21:01)
[2020-03-12] MEDS: LEVALBUTEROL HCL NEB 1.25 MG/3 ML AMPUL NEB SCH ×4 (02:24→20:38)
[2020-03-12] MEDS: DOXYCYCLINE HYCLATE 100 MG in DEXTROSE 5%-WATER 250 ML IV SCH ×2 (04:13→16:02)
[2020-03-12 04:31] LABS: ARTERIAL BLOOD BASE EXCESS 0.2 mmol/L; ARTERIAL BLOOD FIO2 70%; ARTERIAL BLOOD H2CO3 1.06 mmol/L (1.05-1.35); ARTERIAL BLOOD HCO3 23.9 mmol/L (20-24); ARTERIAL BLOOD O2 SATURATION 90.3 % (94-98); ARTERIAL BLOOD PCO2 35.3 mmHg (35-45); ARTERIAL BLOOD PH 7.45 (7.35-7.45); ARTERIAL BLOOD PO2 55.3 mmHg (80-100)
[2020-03-12 05:36] LABS: ANION GAP 12 (5-19); BLOOD UREA NITROGEN 48 mg/dL (7-20); CALCIUM 8.7 mg/dL (8.4-10.2); CARBON DIOXIDE 26 mmol/L (22-30); CHLORIDE 93 mmol/L (98-107); GLUCOSE 146 mg/dL (75-110); POTASSIUM 3.9 mmol/L (3.6-5.0)
[2020-03-12] MEDS ORDERED: PHARMACY COMMUNICATION ORDER MC NR (08:00)
[2020-03-12] MEDS: DEXAMETHASONE SOD PHOS INJ 10 MG/1 ML VIAL IV SCH (09:17)
[2020-03-12] MEDS: AMINO AC/PROTEIN HYDR/WHEY PRO 11 GM/45 ML PKT NG SCH ×3 (09:17→17:30)
[2020-03-12] MEDS: ZINC SULFATE 220 MG CAPSULE NG SCH (09:18)
[2020-03-12] MEDS: ASPIRIN 81 MG TABLET, CHEWABLE NG SCH (09:18)
[2020-03-12] MEDS: ASCORBIC ACID 500 MG TABLET NG SCH ×2 (09:18→17:31)
[2020-03-12] MEDS: PANTOPRAZOLE SODIUM 40 MG VIAL IV SCH (09:18)
[2020-03-12] MEDS: CHOLECALCIFEROL (D3) 1,000 UNIT (25 MCG) TABLET NG SCH ×3 (09:18→17:30)
[2020-03-12] MEDS: INSULIN GLARGINE,HUM.REC.ANLOG 1,000 UNIT/10 ML VIAL SUBCUT SCH (09:19)
--- NOTE | 2020-03-12 09:27 | PDOC CRITICAL CARE PROG REPORT ---
General Date:: 03/12/20 ICU Day:: 29 Ventilator Day:: 29 Hospital Day:: 33 Resuscitation Status: Full Code Events in the past 12 to 24 Hours:: Essentially no progress on trach. Review of systems relevant to events:: Pulmonary, neurological. Reason for ICU Addmission:: Acute respiratory distress and need for intubation. Now trached but still on the vent on fairly high support. - Medications: Medications reviewed and adjusted accordingly: Yes Vasopressors:: None Sedation:: None Physical Exam Vital Signs: Temp Pulse Resp BP Pulse Ox 98.4 F 134 H 20 152/94 H 90 L 03/12/20 07:59 03/12/20 08:45 03/12/20 08:45 03/12/20 07:59 03/12/20 08:45 Pulse Oximeter Nocturnal Start: 02/08/20 13:55 Freq: RTQ4 Status: Complete Protocol: Document 02/09/20 04:00 LRO (Rec: 02/09/20 05:38 LRO [email or web address]) Nocturnal Pulse Oximetry Equipment Usage Equipment in Use Oxygen Delivery Method (includes room Room Air air) O2 Sat by Pulse Oximetry (92-100) 95 Continuous SpO2 Machine # 2 Pulse Oximeter Nocturnal Start: 02/10/20 11:39 Freq: RTQ4 Status: Complete Protocol: Document 02/11/20 04:06 PMU (Rec: 02/11/20 05:06 PMU [email or web address]) Nocturnal Pulse Oximetry Equipment Usage Equipment in Use Oxygen Delivery Method (includes room Room Air air) O2 Sat by Pulse Oximetry (92-100) 93 Continuous SpO2 Machine # N2 Intake & Output 03/11/20 03/12/20 03/13/20 06:59 06:59 06:59 Intake Total 960 1146 Output Total 810 3870 0 Balance 150 -2724 0 Weight 116 kg 111.6 kg Weight/Height Weight 111.6 kg Height 5 ft 9 in General appearance: PRESENT: no acute distress, obese Head exam: PRESENT: atraumatic, normocephalic Eye exam: PRESENT: conjunctiva pink, EOMI, PERRLA. ABSENT: scleral icterus Ear exam: PRESENT: normal external ear exam Mouth exam: PRESENT: moist, tongue midline Respiratory exam: PRESENT: clear to auscultation kevyn, decreased breath sounds. ABSENT: rales, rhonchi, wheezes Cardiovascular exam: PRESENT: irregular rhythm, tachycardia. ABSENT: diastolic murmur, rubs, systolic murmur GI/Abdominal exam: PRESENT: normal bowel sounds, soft. ABSENT: distended, guarding, mass, organolmegaly, rebound, tenderness Rectal exam: PRESENT: deferred Gentrourinary exam: PRESENT: indwelling catheter Extremities exam: PRESENT: +1 edema, other - Heel ulcers, HD catheter site clean. Sacral decubitis. Neurological exam: PRESENT: altered, awake, CN II-XII grossly intact, motor sensory deficit, other - He does seem to track at times. He does not move purposefully. Psychiatric exam: PRESENT: appropriate affect, normal mood. ABSENT: homicidal ideation, suicidal ideation Skin exam: PRESENT: dry, intact, warm. ABSENT: cyanosis, rash Tubes/Lines: PRESENT: Dialysis catheter, Nasogastic Tube, Other - Tracheotomy Laboratory/Radiographs Laboratory Results: 03/11/20 05:00 03/12/20 04:10 03/12/20 03/12/20 04:10 04:10 Carbonic Acid 1.06 HCO3/H2CO3 Ratio 22:1 ABG pH 7.45 ABG pCO2 35.3 ABG pO2 55.3 L ABG HCO3 23.9 ABG O2 Saturation 90.3 L ABG Base Excess 0.2 FiO2 70% Sodium 130.7 L Potassium 3.9 Chloride 93 L Carbon Dioxide 26 Anion Gap 12 BUN 48 H Creatinine 2.13 H Est GFR ( Amer) 37 L Glucose 146 H Calcium 8.7 03/09/20 04:15 Tracheal Aspirate Gram Stain - Final 03/09/20 04:15 Tracheal Aspirate Sputum Culture - Final Enterobacter Cloacae Normal Betsey Absent 03/07/20 14:17 Blood Blood Culture (PCR) - Final Enterobacter Cloacae Complex 03/07/20 14:17 Blood Blood Culture - Final Enterobacter Cloacae 02/08/20 02/08/20 02/21/20 09:49 13:11 04:50 Troponin I 0.160 0.155 NT-Pro-B Natriuret Pep 5540 H 27982 H 02/26/20 03/09/20 05:35 04:00 Troponin I NT-Pro-B Natriuret Pep 53114 H 69077 H Impressions: Hip/Pelvis X-Ray 02/08/20 00:00 IMPRESSION: No acute fracture. Severe degenerative changes of the left hip. Knee X-Ray 02/08/20 00:00 IMPRESSION: NEGATIVE STUDY OF THE RIGHT KNEE. NO RADIOGRAPHIC EVIDENCE OF ACUTE INJURY. Renal Ultrasound 02/21/20 00:00 IMPRESSION: Increased echogenicity of the renal parenchyma suggestive of underlying chronic medical renal disease. There is no hydronephrosis. There is a Ryan catheter within the urinary bladder. Head CT 03/08/20 08:56 IMPRESSION: MILD CHRONIC CHANGES OF ATROPHY AND MICROVASCULAR ISCHEMIA. NO ACUTE PROCESS. EVIDENCE OF ACUTE STROKE: NO. Chest CT 03/08/20 10:12 IMPRESSION: Extensive bilateral infiltrates. No pneumothorax. KUB X-Ray 03/10/20 00:00 IMPRESSION: Nonspecific bowel gas pattern. Esophagogastric tube tip and side- hole are within the stomach. All labs, radiographs, diagnostic studies and EKGs were personally reviewed: Yes In addition, reports of radiographic and diagnostic studies were read: Yes Assessment and Plan - Diagnosis (1) Acute respiratory failure due to COVID-19 Is this a current diagnosis for this admission?: Yes Plan: He is still on high support. On 70% FiO2 he is only showing O2 saturations of 89-92%. (2) Tachypnea Is this a current diagnosis for this admission?: Yes Plan: This seems to have resolved but on high vent support. (3) Acute on chronic diastolic CHF (congestive heart failure) Is this a current diagnosis for this admission?: Yes Plan: Inactive. (4) Coronary artery disease Qualifiers: Coronary Disease-Associated Artery/Lesion type: unspecified vessel or lesion type [place] vs. transplanted heart: [place] heart Associated angina: with unspecified angina Qualified Code(s): I25.119 - Atherosclerotic heart disease of [place] coronary artery with unspecified angina pectoris Is this a current diagnosis for this admission?: Yes Plan: Inactive. (5) Elevated brain natriuretic peptide (BNP) level Is this a current diagnosis for this admission?: Yes (6) Obesity (BMI 30-39.9) Is this a current diagnosis for this admission?: Yes Plan: Chronic, looks smaller. (7) Anemia Qualifiers: Anemia type: iron deficiency Is this a current diagnosis for this admission?: Yes Plan: Resolved (8) CKD (chronic kidney disease) stage 5, GFR less than 15 ml/min Is this a current diagnosis for this admission?: Yes (9) Hypocalcemia Is this a current diagnosis for this admission?: Yes Critical Time Critical Time (minutes): 35 Level of Care: ICU Anticipated discharge: SNF Anticipated DC Timeframe: Other -: 1. The care of a critical patient is a dynamic process. This note is a school admissions representative synopsis but static in nature. The timeframe for treatments given in order is not necessarily the actual time these treatments may have been done. 2. This patient requires critical care secondary to ongoing requirements for therapy not offered or safe outside the critical care environment. Transfer to a lower level of care will result in altered life or limb morbidity and mortality. 3. Multidisciplinary rounds completed. 4. ABCDE bundle addressed.
[2020-03-12] MEDS: CALCITRIOL 1 MCG/ML ORAL SOLN 15 ML NG SCH (09:30)
--- NOTE | 2020-03-12 09:48 | RADIOLOGY REPORT (SQ) ---
EXAM DESCRIPTION: CHEST SINGLE VIEW IMAGES COMPLETED DATE/TIME: 03/12/2020 6:45 am REASON FOR STUDY: vented COMPARISON: AP view of the chest from 03/11/2020. EXAM PARAMETERS: NUMBER OF VIEWS: One view. TECHNIQUE: An AP view of the chest was obtained. RADIATION DOSE: NA LIMITATIONS: None. FINDINGS: LUNGS AND PLEURA: Unchanged appearance of the lungs and pleura. MEDIASTINUM AND HILAR STRUCTURES: Stable mediastinal and hilar contours. HEART AND VASCULAR STRUCTURES: Stable enlarged cardiac silhouette. BONES: No acute findings. HARDWARE: Sternotomy wires, implantable loop recorder, left atrial appendage occlusion device, trache ostomy tube, enteric tube whose tip projects within the gastric lumen, and right IJ central venous ca theter whose tip projects at the level of the cavoatrial junction. OTHER: No other finding. IMPRESSION: Tubes and lines as above. Otherwise unchanged radiographic appearance of the chest. TECHNICAL DOCUMENTATION: JOB ID: [id number] 2010 [employer]- All Rights Reserved Reading location - IP/workstation name: [email or web address]
[2020-03-12] MEDS: CEFEPIME 1 GM/D5W RTU 1 GM/50 ML RTUPB IV SCH (17:31)
[2020-03-12] MEDS ORDERED: DIGOXIN INJ 0.5 MG/2 ML AMPULE IV ONE (20:40)
[2020-03-12] MEDS ORDERED: DIGOXIN INJ 0.5 MG/2 ML AMPULE ONE (20:41)
[2020-03-12] MEDS: FENTANYL CITRATE INJ/PF 100 MCG/2 ML AMPUL IV PRN (21:00)
[2020-03-13] MEDS: METOPROLOL TARTRATE PF/INJ 5 MG/5 ML SDV IV PRN ×2 (00:47→06:48)
[2020-03-13] MEDS ORDERED: HYDRALAZINE HCL INJ/PF 20 MG/1 ML SDV ONE (01:08)
[2020-03-13] MEDS: HYDRALAZINE HCL INJ/PF 20 MG/1 ML SDV IV PRN ×2 (01:10→09:43)
[2020-03-13] MEDS ORDERED: NICARDIPINE HCL RTU, ISO-OS 20 MG/200 ML RTUINJ IV ONE (02:38)
[2020-03-13] MEDS: LEVALBUTEROL HCL NEB 1.25 MG/3 ML AMPUL NEB SCH ×4 (03:05→20:45)
[2020-03-13] MEDS: NICARDIPINE HCL RTU, ISO-OS 20 MG/200 ML RTUINJ IV PRN ×2 (03:25→18:00)
[2020-03-13] MEDS: DOXYCYCLINE HYCLATE 100 MG in DEXTROSE 5%-WATER 250 ML IV SCH ×2 (03:28→15:37)
[2020-03-13] MEDS ORDERED: EPOETIN ALFA-EPBX 20,000 UNIT in SYRINGE, DISPOSABLE, 1 EACH IV PRN (05:00)
[2020-03-13] MEDS ORDERED: HEPARIN SOD (PORCINE) 1,000 UNIT/ML 10 ML VIAL IV PRN (05:00)
[2020-03-13] MEDS: CALCIUM ACETATE 667 MG CAPSULE PO SCH (05:19)
[2020-03-13] MEDS: METOPROLOL TARTRATE 50 MG TABLET NG SCH ×4 (05:19→23:18)
[2020-03-13] MEDS: INSULIN LISPRO 100 UNIT/ML 3 ML VIAL SUBCUT SCH ×4 (05:26→23:24)
[2020-03-13 05:56] LABS: HEMOGLOBIN 9.3 g/dL (13.5-17.0); MEAN CORPUSCULAR HEMOGLOBIN 31.6 pg (27.0-33.4); MEAN CORPUSCULAR HGB CONC 33.3 g/dL (32.0-36.0); MEAN CORPUSCULAR VOLUME 95 fl (80-97); PLATELET COUNT 305 10^3/uL (150-450); RED BLOOD COUNT 2.95 10^6/uL (4.35-5.55); RED CELL DISTRIBUTION WIDTH 18.6 % (11.5-14.0)
[2020-03-13 06:05] LABS: ARTERIAL BLOOD BASE EXCESS -1.6 mmol/L; ARTERIAL BLOOD H2CO3 1.07 mmol/L (1.05-1.35); ARTERIAL BLOOD HCO3 22.5 mmol/L (20-24); ARTERIAL BLOOD PCO2 35.7 mmHg (35-45); ARTERIAL BLOOD PH 7.42 (7.35-7.45); ARTERIAL BLOOD PO2 54.2 mmHg (80-100); ARTERIAL BLOOD TOTAL CO2 23.6 mmol/L (23-27)
[2020-03-13 06:07] LABS: ARTERIAL BLOOD FIO2 80
[2020-03-13 06:12] LABS: ANION GAP 13 (5-19); BLOOD UREA NITROGEN 65 mg/dL (7-20); CALCIUM 8.9 mg/dL (8.4-10.2); CARBON DIOXIDE 24 mmol/L (22-30); CHLORIDE 92 mmol/L (98-107); GLUCOSE 165 mg/dL (75-110); POTASSIUM 3.9 mmol/L (3.6-5.0)
[2020-03-13 06:13] LABS: AMORPHOUS SEDIMENT,URINE 1+ /HPF; APPEARANCE,URINE TURBID; BILIRUBIN,URINE NEGATIVE (NEGATIVE); COLOR,URINE YELLOW; GLUCOSE, URINE 50 mg/dL (NEGATIVE); KETONES,URINE NEGATIVE (NEGATIVE); LEUKOCYTE ESTERASE,URINE MODERATE (NEGATIVE); NITRITE,URINE NEGATIVE (NEGATIVE); PROTEIN,URINE 100 mg/dL (NEGATIVE); URINE SPECIFIC GRAVITY 1.018; UROBILINOGEN,URINE NEGATIVE mg/dL (<2.0)
[2020-03-13 06:19] LABS: ABSOLUTE LYMPHOCYTES# (MANUAL) 0.7 10^3/uL (0.5-4.7); ABSOLUTE MONOCYTES # (MANUAL) 0.6 10^3/uL (0.1-1.4); BAND NEUTROPHILS % (MANUAL) 2 % (3-5); BASOPHILS % (MANUAL) 0 % (0-2); EOSINOPHILS % (MANUAL) 0 % (0-6); LYMPHOCYTES % (MANUAL) 5 % (13-45); MONOCYTES % (MANUAL) 4 % (3-13); MYELOCYTES % (MANUAL) 3 % (0); NUCLEATED RED BLOOD CELLS 2 /100 WBC (0); SEGMENTED NEUTROPHILS % (MAN) 86 % (42-78); TOTAL CELLS COUNTED 100
[2020-03-13 06:20] LABS: ANISOCYTOSIS 1+; PLATELET COMMENT ADEQUATE; TOXIC GRANULATION SLIGHT
[2020-03-13 06:21] LABS: POLYCHROMASIA SLIGHT
--- NOTE | 2020-03-13 09:20 | RADIOLOGY REPORT (SQ) ---
EXAM DESCRIPTION: CHEST SINGLE VIEW IMAGES COMPLETED DATE/TIME: 03/13/2020 6:55 am REASON FOR STUDY: vented COMPARISON: AP view of the chest from 03/12/2020. EXAM PARAMETERS: NUMBER OF VIEWS: One view. TECHNIQUE: An AP view of the chest was obtained. RADIATION DOSE: NA LIMITATIONS: None. FINDINGS: LUNGS AND PLEURA: Unchanged appearance of the lungs and pleura. MEDIASTINUM AND HILAR STRUCTURES: Stable mediastinal and hilar contours. HEART AND VASCULAR STRUCTURES: Stable cardiac silhouette. BONES: No acute findings. HARDWARE: The tip of the right IJ central venous catheter projects within the SVC. The tip of the en teric tube projects past the gastroesophageal junction and within the gastric lumen. There is a trac heostomy tube in place. There are sternotomy wires, mediastinal surgical clips, and implantable loop recorder, and a left atrial appendage occlusion device in place. OTHER: No other finding. IMPRESSION: Tubes and lines as above. Otherwise unchanged radiographic appearance of the chest. TECHNICAL DOCUMENTATION: JOB ID: [id number] 2010 [employer]- All Rights Reserved Reading location - IP/workstation name: [email or web address]
[2020-03-13] MEDS: ASPIRIN 81 MG TABLET, CHEWABLE NG SCH (09:31)
[2020-03-13] MEDS: PANTOPRAZOLE SODIUM 40 MG VIAL IV SCH (09:31)
[2020-03-13] MEDS: DEXAMETHASONE SOD PHOS INJ 10 MG/1 ML VIAL IV SCH (09:31)
[2020-03-13] MEDS: SODIUM BICARBONATE 650 MG TABLET NG SCH ×2 (09:31→23:17)
[2020-03-13] MEDS: CHOLECALCIFEROL (D3) 1,000 UNIT (25 MCG) TABLET NG SCH ×3 (09:31→17:39)
[2020-03-13] MEDS: AMINO AC/PROTEIN HYDR/WHEY PRO 11 GM/45 ML PKT NG SCH ×5 (09:32→23:20)
[2020-03-13] MEDS: DIGOXIN INJ 0.5 MG/2 ML AMPULE IV SCH (09:32)
[2020-03-13] MEDS: CALCITRIOL 1 MCG/ML ORAL SOLN 15 ML NG SCH (09:42)
[2020-03-13] MEDS: INSULIN GLARGINE,HUM.REC.ANLOG 1,000 UNIT/10 ML VIAL SUBCUT SCH (11:09)
--- NOTE | 2020-03-13 11:49 | PDOC PROGRESS REPORT ---
Subjective Progress Note for:: 03/13/20 Reason For Visit: Patient seen in the ICU today while undergoing dialysis. Initially he was doing well but later blood pressure and heart rate began to change with fluid removal progressing. Therefore blood flow rate and fluid extraction had to be adjusted. Vital signs are currently stabilizing. Labs and medications were reviewed. Dialysis orders were reviewed with the treating dialysis nurse. Physical Exam Vital Signs: Temp Pulse Resp BP Pulse Ox 97.3 F 120 H 23 H 194/78 H 93 03/13/20 08:00 03/13/20 10:00 03/13/20 10:04 03/13/20 10:04 03/13/20 10:04 Pulse Oximeter Nocturnal Start: 02/08/20 13:55 Freq: RTQ4 Status: Complete Protocol: Document 02/09/20 04:00 LRO (Rec: 02/09/20 05:38 LRO [id number]) Nocturnal Pulse Oximetry Equipment Usage Equipment in Use Oxygen Delivery Method (includes room Room Air air) O2 Sat by Pulse Oximetry (92-100) 95 Continuous SpO2 Machine # 2 Pulse Oximeter Nocturnal Start: 02/10/20 11:39 Freq: RTQ4 Status: Complete Protocol: Document 02/11/20 04:06 PMU (Rec: 02/11/20 05:06 PMU [email or web address]) Nocturnal Pulse Oximetry Equipment Usage Equipment in Use Oxygen Delivery Method (includes room Room Air air) O2 Sat by Pulse Oximetry (92-100) 93 Continuous SpO2 Machine # N2 Intake & Output 03/12/20 03/13/20 03/14/20 06:59 06:59 06:59 Intake Total 1396 4137 10 Output Total 2380 315 10 Balance -8552 3822 0 Weight 111.6 kg 115.5 kg 115.5 kg Exam: Remains intubated but not sedated. Patient responsive. Cardiovascular exam: PRESENT: +S1, +S2 GI/Abdominal exam: PRESENT: normal bowel sounds, soft. ABSENT: organomegaly, tenderness Results Laboratory Results: 03/13/20 05:35 03/13/20 05:35 03/13/20 03/13/20 03/13/20 05:35 05:35 05:35 WBC 14.0 H RBC 2.95 L Hgb 9.3 L Hct 28.0 L MCV 95 MCH 31.6 MCHC 33.3 RDW 18.6 H Plt Count 305 Seg Neutrophils % Not Reportable Carbonic Acid 1.07 HCO3/H2CO3 Ratio 21:1 ABG pH 7.42 ABG pCO2 35.7 ABG pO2 54.2 L ABG HCO3 22.5 ABG O2 Saturation 89.0 L ABG Base Excess -1.6 FiO2 80 Sodium 129.0 L Potassium 3.9 Chloride 92 L Carbon Dioxide 24 Anion Gap 13 BUN 65 H Creatinine 2.66 H Est GFR ( Amer) 29 L Glucose 165 H Calcium 8.9 Urine Color Urine Appearance Urine pH Ur Specific [place] Urine Protein Urine Glucose (UA) Urine Ketones Urine Blood Urine Nitrite Ur Leukocyte Esterase Urine WBC (Auto) Urine RBC (Auto) 03/13/20 05:35 WBC RBC Hgb Hct MCV MCH MCHC RDW Plt Count Seg Neutrophils % Carbonic Acid HCO3/H2CO3 Ratio ABG pH ABG pCO2 ABG pO2 ABG HCO3 ABG O2 Saturation ABG Base Excess FiO2 Sodium Potassium Chloride Carbon Dioxide Anion Gap BUN Creatinine Est GFR ( Amer) Glucose Calcium Urine Color YELLOW Urine Appearance TURBID Urine pH 5.0 Ur Specific [place] 1.018 Urine Protein 100 H Urine Glucose (UA) 50 H Urine Ketones NEGATIVE Urine Blood LARGE H Urine Nitrite NEGATIVE Ur Leukocyte Esterase MODERATE H Urine WBC (Auto) >182 Urine RBC (Auto) >182 03/07/20 14:23 Blood Blood Culture - Final NO GROWTH IN 5 DAYS 02/08/20 02/08/20 02/21/20 09:49 13:11 04:50 Troponin I 0.160 0.155 NT-Pro-B Natriuret Pep 5540 H 68719 H 02/26/20 03/09/20 05:35 04:00 Troponin I NT-Pro-B Natriuret Pep 49824 H 43606 H Impressions: Hip/Pelvis X-Ray 02/08/20 00:00 IMPRESSION: No acute fracture. Severe degenerative changes of the left hip. Knee X-Ray 02/08/20 00:00 IMPRESSION: NEGATIVE STUDY OF THE RIGHT KNEE. NO RADIOGRAPHIC EVIDENCE OF ACUTE INJURY. Renal Ultrasound 02/21/20 00:00 IMPRESSION: Increased echogenicity of the renal parenchyma suggestive of underlying chronic medical renal disease. There is no hydronephrosis. There is a Ryan catheter within the urinary bladder. Head CT 03/08/20 08:56 IMPRESSION: MILD CHRONIC CHANGES OF ATROPHY AND MICROVASCULAR ISCHEMIA. NO ACUTE PROCESS. EVIDENCE OF ACUTE STROKE: NO. Chest CT 03/08/20 10:12 IMPRESSION: Extensive bilateral infiltrates. No pneumothorax. KUB X-Ray 03/10/20 00:00 IMPRESSION: Nonspecific bowel gas pattern. Esophagogastric tube tip and side- hole are within the stomach. Chest X-Ray 03/13/20 06:00 IMPRESSION: Tubes and lines as above. Otherwise unchanged radiographic appearance of the chest. Assessment & Plan - Diagnosis (1) Acute kidney injury superimposed on chronic kidney disease Is this a current diagnosis for this admission?: Yes Plan: Acute on chronic kidney disease with patient having underlying baseline creat inine of around 1.7-2. Currently oligo-anuric. Initiated hemodialysis through a temporary catheter. Dialysis is ongoing. Plan to remove 2-3 L of fluid as tolerated. Discussed and reviewed dialysis orders with the treating dialysis nurse. (2) Acute on chronic combined systolic (congestive) and diastolic (congestive) heart failure Is this a current diagnosis for this admission?: Yes Plan: Improved monitor and see response to gentle dialysis. (3) Acute respiratory failure due to COVID-19 Is this a current diagnosis for this admission?: Yes Plan: Remains intubated and less sedated. Now status post tracheostomy. Being managed by budget clerk. Monitor. (4) Hypotension Is this a current diagnosis for this admission?: Yes Plan: Currently stable. Monitor. (5) Hypocalcemia Is this a current diagnosis for this admission?: Yes Plan: Stable. Monitor. (6) Metabolic acidosis Is this a current diagnosis for this admission?: Yes Plan: Stable on HD. (7) Atrial fibrillation Qualifiers: Atrial fibrillation type: persistent (not longstanding) Qualified Code(s): I48.19 - Other persistent atrial fibrillation; I48.1 - Persistent atrial fibrillation Is this a current diagnosis for this admission?: Yes Plan: Currently rate controlled. Monitor. (8) Hyperglycemia Plan: As per budget clerk. (9) COVID-19 virus infection Is this a current diagnosis for this admission?: Yes Plan: As per budget clerk. (10) Anemia Qualifiers: Anemia type: iron deficiency Is this a current diagnosis for this admission?: Yes Plan: .Patient has received multiple blood transfusions. Started erythropoietin. Monitor. (11) Hyponatremia Is this a current diagnosis for this admission?: Yes Plan: See response to fluid removal. Monitor.
--- NOTE | 2020-03-13 12:24 | PDOC CRITICAL CARE PROG REPORT ---
General Date:: 03/13/20 ICU Day:: 30 Ventilator Day:: 30 Hospital Day:: 34 Resuscitation Status: Full Code Events in the past 12 to 24 Hours:: No change in vent. HD needed adjustment due to BP Review of systems relevant to events:: Pulmonary, neurological, renal. Reason for ICU Addmission:: Acute respiratory distress and need for intubation. Now trached but still on the vent on fairly high support. - Medications: Medications reviewed and adjusted accordingly: Yes Vasopressors:: None Sedation:: None. Physical Exam Vital Signs: Temp Pulse Resp BP Pulse Ox 97.3 F 120 H 23 H 194/78 H 93 03/13/20 08:00 03/13/20 10:00 03/13/20 10:04 03/13/20 10:04 03/13/20 10:04 Pulse Oximeter Nocturnal Start: 02/08/20 13:55 Freq: RTQ4 Status: Complete Protocol: Document 02/09/20 04:00 LRO (Rec: 02/09/20 05:38 LRO [id number]) Nocturnal Pulse Oximetry Equipment Usage Equipment in Use Oxygen Delivery Method (includes room Room Air air) O2 Sat by Pulse Oximetry (92-100) 95 Continuous SpO2 Machine # 2 Pulse Oximeter Nocturnal Start: 02/10/20 11:39 Freq: RTQ4 Status: Complete Protocol: Document 02/11/20 04:06 PMU (Rec: 02/11/20 05:06 PMU [email or web address]) Nocturnal Pulse Oximetry Equipment Usage Equipment in Use Oxygen Delivery Method (includes room Room Air air) O2 Sat by Pulse Oximetry (92-100) 93 Continuous SpO2 Machine # N2 Intake & Output 03/12/20 03/13/20 03/14/20 06:59 06:59 06:59 Intake Total 1396 4137 10 Output Total 3870 315 10 Balance -7493 3822 0 Weight 111.6 kg 115.5 kg 115.5 kg Weight/Height Weight 115.5 kg Height 5 ft 9 in General appearance: PRESENT: no acute distress, obese Head exam: PRESENT: atraumatic, normocephalic Eye exam: PRESENT: conjunctiva pink, EOMI, PERRLA. ABSENT: scleral icterus Ear exam: PRESENT: normal external ear exam Mouth exam: PRESENT: moist, tongue midline Respiratory exam: PRESENT: clear to auscultation kevyn, decreased breath sounds. ABSENT: rales, rhonchi, wheezes Cardiovascular exam: PRESENT: irregular rhythm, tachycardia GI/Abdominal exam: PRESENT: normal bowel sounds, soft. ABSENT: distended, g uarding, mass, organolmegaly, rebound, tenderness Rectal exam: PRESENT: deferred Gentrourinary exam: PRESENT: indwelling catheter Extremities exam: PRESENT: +1 edema, other - Heel ulcers Musculoskeletal exam: PRESENT: normal inspection Neurological exam: PRESENT: altered, awake, CN II-XII grossly intact, other - At times he does follow commands. Is beginning to move L arm Skin exam: PRESENT: skin tears Tubes/Lines: PRESENT: Nasogastic Tube, Other - Trach Laboratory/Radiographs Laboratory Results: 03/13/20 05:35 03/13/20 05:35 03/13/20 03/13/20 03/13/20 05:35 05:35 05:35 WBC 14.0 H RBC 2.95 L Hgb 9.3 L Hct 28.0 L MCV 95 MCH 31.6 MCHC 33.3 RDW 18.6 H Plt Count 305 Seg Neutrophils % Not Reportable Carbonic Acid 1.07 HCO3/H2CO3 Ratio 21:1 ABG pH 7.42 ABG pCO2 35.7 ABG pO2 54.2 L ABG HCO3 22.5 ABG O2 Saturation 89.0 L ABG Base Excess -1.6 FiO2 80 Sodium 129.0 L Potassium 3.9 Chloride 92 L Carbon Dioxide 24 Anion Gap 13 BUN 65 H Creatinine 2.66 H Est GFR ( Amer) 29 L Glucose 165 H Calcium 8.9 Urine Color Urine Appearance Urine pH Ur Specific [place] Urine Protein Urine Glucose (UA) Urine Ketones Urine Blood Urine Nitrite Ur Leukocyte Esterase Urine WBC (Auto) Urine RBC (Auto) 03/13/20 05:35 WBC RBC Hgb Hct MCV MCH MCHC RDW Plt Count Seg Neutrophils % Carbonic Acid HCO3/H2CO3 Ratio ABG pH ABG pCO2 ABG pO2 ABG HCO3 ABG O2 Saturation ABG Base Excess FiO2 Sodium Potassium Chloride Carbon Dioxide Anion Gap BUN Creatinine Est GFR ( Amer) Glucose Calcium Urine Color YELLOW Urine Appearance TURBID Urine pH 5.0 Ur Specific [place] 1.018 Urine Protein 100 H Urine Glucose (UA) 50 H Urine Ketones NEGATIVE Urine Blood LARGE H Urine Nitrite NEGATIVE Ur Leukocyte Esterase MODERATE H Urine WBC (Auto) >182 Urine RBC (Auto) >182 03/07/20 14:23 Blood Blood Culture - Final NO GROWTH IN 5 DAYS 02/08/20 02/08/20 02/21/20 09:49 13:11 04:50 Troponin I 0.160 0.155 NT-Pro-B Natriuret Pep 5540 H 93094 H 02/26/20 03/09/20 05:35 04:00 Troponin I NT-Pro-B Natriuret Pep 98882 H 90922 H Impressions: Hip/Pelvis X-Ray 02/08/20 00:00 IMPRESSION: No acute fracture. Severe degenerative changes of the left hip. Knee X-Ray 02/08/20 00:00 IMPRESSION: NEGATIVE STUDY OF THE RIGHT KNEE. NO RADIOGRAPHIC EVIDENCE OF ACUTE INJURY. Renal Ultrasound 02/21/20 00:00 IMPRESSION: Increased echogenicity of the renal parenchyma suggestive of underlying chronic medical renal disease. There is no hydronephrosis. There is a Ryan catheter within the urinary bladder. Head CT 03/08/20 08:56 IMPRESSION: MILD CHRONIC CHANGES OF ATROPHY AND MICROVASCULAR ISCHEMIA. NO ACUTE PROCESS. EVIDENCE OF ACUTE STROKE: NO. Chest CT 03/08/20 10:12 IMPRESSION: Extensive bilateral infiltrates. No pneumothorax. KUB X-Ray 03/10/20 00:00 IMPRESSION: Nonspecific bowel gas pattern. Esophagogastric tube tip and side- hole are within the stomach. Chest X-Ray 03/13/20 06:00 IMPRESSION: Tubes and lines as above. Otherwise unchanged radiographic a ppearance of the chest. All labs, radiographs, diagnostic studies and EKGs were personally reviewed: Yes In addition, reports of radiographic and diagnostic studies were read: Yes Assessment and Plan - Diagnosis (1) Acute respiratory failure due to COVID-19 Is this a current diagnosis for this admission?: Yes Plan: We have been unable to make progress on his vent despite a tracheotomy. He had to go up temporarily to 100% then down to 80 overnight now he is at 75% and we will continue as we can. (2) Acute on chronic diastolic CHF (congestive heart failure) Is this a current diagnosis for this admission?: Yes Plan: Currently this is inactive. (3) Coronary artery disease Qualifiers: Coronary Disease-Associated Artery/Lesion type: unspecified vessel or lesion type [place] vs. transplanted heart: [place] heart Associated angina: with unspecified angina Qualified Code(s): I25.119 - Atherosclerotic heart disease of [place] coronary artery with unspecified angina pectoris Is this a current diagnosis for this admission?: Yes Plan: Inactive. (4) Elevated brain natriuretic peptide (BNP) level Is this a current diagnosis for this admission?: Yes Plan: No change (5) Obesity (BMI 30-39.9) Is this a current diagnosis for this admission?: Yes Plan: Chronic (6) Anemia Qualifiers: Anemia type: iron deficiency Is this a current diagnosis for this admission?: Yes Plan: Hemaglobin 9.3. (7) CKD (chronic kidney disease) stage 5, GFR less than 15 ml/min Is this a current diagnosis for this admission?: Yes Plan: HD today with some adjustments made. (8) Hypocalcemia Is this a current diagnosis for this admission?: Yes Plan: Resolved. (9) HTN (hypertension) Is this a current diagnosis for this admission?: Yes Plan: He is on an intermittant Cardene drip for SBP > 200 despite IV hydralazine and IV lopressor which does not seem effective. IV lopressor discontinued, IV hydralazine increased. PO metoprolol kept for preventing a rebound effect. Plan Summary: Try to get him off Cardene and wean vent. Critical Time Critical Time (minutes): 35 Level of Care: ICU Anticipated discharge: SNF Anticipated DC Timeframe: Other -: 1. The care of a critical patient is a dynamic process. This note is a novelties sales representative synopsis but static in nature. The timeframe for treatments gi shravan in order is not necessarily the actual time these treatments may have been done. 2. This patient requires critical care secondary to ongoing requirements for therapy not offered or safe outside the critical care environment. Transfer to a lower level of care will result in altered life or limb morbidity and mortality. 3. Multidisciplinary rounds completed. 4. ABCDE bundle addressed.
[2020-03-13] MEDS: CALCIUM ACETATE 667 MG CAPSULE NG SCH ×2 (14:06→23:17)
[2020-03-13] MEDS: ACETAMINOPHEN SOLN 325 MG/10.15 ML UDCUP NG PRN (23:22)
[2020-03-14] MEDS: NICARDIPINE HCL RTU, ISO-OS 20 MG/200 ML RTUINJ IV PRN ×6 (00:30→21:25)
[2020-03-14] MEDS: LEVALBUTEROL HCL NEB 1.25 MG/3 ML AMPUL NEB SCH ×4 (01:58→20:37)
[2020-03-14] MEDS: DOXYCYCLINE HYCLATE 100 MG in DEXTROSE 5%-WATER 250 ML IV SCH ×2 (07:32→16:30)
[2020-03-14] MEDS: METOPROLOL TARTRATE 50 MG TABLET NG SCH ×3 (07:33→17:17)
[2020-03-14] MEDS: FENTANYL CITRATE INJ/PF 100 MCG/2 ML AMPUL IV PRN ×3 (07:34→22:35)
[2020-03-14] MEDS: CALCIUM ACETATE 667 MG CAPSULE NG SCH ×3 (07:38→22:00)
[2020-03-14 08:01] LABS: DIGOXIN 1.08 ng/mL (0.8-2.0)
[2020-03-14 08:11] LABS: HEMATOCRIT 24.7 % (37.9-51.0); HEMOGLOBIN 8.1 g/dL (13.5-17.0); MEAN CORPUSCULAR HEMOGLOBIN 31.7 pg (27.0-33.4); MEAN CORPUSCULAR VOLUME 96 fl (80-97); PLATELET COUNT 239 10^3/uL (150-450); RED BLOOD COUNT 2.57 10^6/uL (4.35-5.55); RED CELL DISTRIBUTION WIDTH 19.6 % (11.5-14.0); WHITE BLOOD COUNT 14.3 10^3/uL (4.0-10.5)
--- NOTE | 2020-03-14 08:20 | PDOC CRITICAL CARE PROG REPORT ---
General Date:: 03/14/20 Resuscitation Status: Full Code Events in the past 12 to 24 Hours:: He seems somewhat more awake. O2 saturations higher. Review of systems relevant to events:: Pulmonary, neurological. Reason for ICU Addmission:: Acute respiratory distress and need for intubation. Now trached but still on the vent on fairly high support. - Medications: Medications reviewed and adjusted accordingly: Yes Vasopressors:: None Sedation:: None Physical Exam Vital Signs: Temp Pulse Resp BP Pulse Ox 96.8 F L 124 H 34 H 162/141 H 98 03/13/20 16:50 03/14/20 07:43 03/14/20 06:06 03/14/20 06:06 03/14/20 06:06 Pulse Oximeter Nocturnal Start: 02/08/20 13:55 Freq: RTQ4 Status: Complete Protocol: Document 02/09/20 04:00 LRO (Rec: 02/09/20 05:38 LRO [email or web address]) Nocturnal Pulse Oximetry Equipment Usage Equipment in Use Oxygen Delivery Method (includes room Room Air air) O2 Sat by Pulse Oximetry (92-100) 95 Continuous SpO2 Machine # 2 Pulse Oximeter Nocturnal Start: 02/10/20 11:39 Freq: RTQ4 Status: Complete Protocol: Document 02/11/20 04:06 PMU (Rec: 02/11/20 05:06 PMU [email or web address]) Nocturnal Pulse Oximetry Equipment Usage Equipment in Use Oxygen Delivery Method (includes room Room Air air) O2 Sat by Pulse Oximetry (92-100) 93 Continuous SpO2 Machine # N2 Intake & Output 03/13/20 03/14/20 03/15/20 06:59 06:59 06:59 Intake Total 4187 1572 Output Total 315 1360 Balance 3872 212 Weight 115.5 kg 114.3 kg Weight/Height Weight 114.3 kg Height 5 ft 9 in General appearance: PRESENT: no acute distress, obese, other - Looks thinner. Head exam: PRESENT: atraumatic, normocephalic Eye exam: PRESENT: conjunctiva pink, EOMI, PERRLA. ABSENT: scleral icterus Ear exam: PRESENT: normal external ear exam Mouth exam: PRESENT: moist, tongue midline Respiratory exam: PRESENT: clear to auscultation kevyn, decreased breath sounds. ABSENT: rales, rhonchi, wheezes Cardiovascular exam: PRESENT: irregular rhythm, tachycardia GI/Abdominal exam: PRESENT: normal bowel sounds, soft. ABSENT: distended, guarding, mass, organolmegaly, rebound, tenderness Rectal exam: PRESENT: deferred Gentrourinary exam: PRESENT: indwelling catheter Extremities exam: PRESENT: +1 edema, other - Heel ulcers. Musculoskeletal exam: PRESENT: normal inspection Neurological exam: PRESENT: alert, awake, CN II-XII grossly intact, other - Too weak to move extremities. Skin exam: PRESENT: other - Sacral decubitis. Tubes/Lines: PRESENT: Dialysis catheter, Nasogastic Tube, Other - Tracheotomy Laboratory/Radiographs Laboratory Results: 03/13/20 05:35 03/14/20 06:50 Magnesium 1.9 03/09/20 06:50 Blood Blood Culture - Final NO GROWTH IN 5 DAYS 03/09/20 06:00 Blood Blood Culture - Final NO GROWTH IN 5 DAYS 02/08/20 02/08/20 02/21/20 09:49 13:11 04:50 Troponin I 0.160 0.155 NT-Pro-B Natriuret Pep 5540 H 44225 H 02/26/20 03/09/20 05:35 04:00 Troponin I NT-Pro-B Natriuret Pep 29308 H 84804 H Impressions: Hip/Pelvis X-Ray 02/08/20 00:00 IMPRESSION: No acute fracture. Severe degenerative changes of the left hip. Knee X-Ray 02/08/20 00:00 IMPRESSION: NEGATIVE STUDY OF THE RIGHT KNEE. NO RADIOGRAPHIC EVIDENCE OF ACUTE INJURY. Renal Ultrasound 02/21/20 00:00 IMPRESSION: Increased echogenicity of the renal parenchyma suggestive of underlying chronic medical renal disease. There is no hydronephrosis. There is a Ryan catheter within the urinary bladder. Head CT 03/08/20 08:56 IMPRESSION: MILD CHRONIC CHANGES OF ATROPHY AND MICROVASCULAR ISCHEMIA. NO ACUTE PROCESS. EVIDENCE OF ACUTE STROKE: NO. Chest CT 03/08/20 10:12 IMPRESSION: Extensive bilateral infiltrates. No pneumothorax. KUB X-Ray 03/10/20 00:00 IMPRESSION: Nonspecific bowel gas pattern. Esophagogastric tube tip and side- hole are within the stomach. All labs, radiographs, diagnostic studies and EKGs were personally reviewed: Yes In addition, reports of radiographic and diagnostic studies were read: Yes Assessment and Plan - Diagnosis (1) Acute respiratory failure due to COVID-19 Is this a current diagnosis for this admission?: Yes Plan: His oxygenation has allowed us to decrease his FiO2 to 60%. Will continue further as allowed. (2) Acute on chronic diastolic CHF (congestive heart failure) Is this a current diagnosis for this admission?: Yes Plan: Stable. (3) Coronary artery disease Qualifiers: Coronary Disease-Associated Artery/Lesion type: unspecified vessel or lesion type [place] vs. transplanted heart: [place] heart Associated angina: with unspecified angina Qualified Code(s): I25.119 - Atherosclerotic heart disease of [place] coronary artery with unspecified angina pectoris Is this a current diagnosis for this admission?: Yes Plan: Inactive. (4) Elevated brain natriuretic peptide (BNP) level Is this a current diagnosis for this admission?: Yes Plan: Will recheck level. (5) Obesity (BMI 30-39.9) Is this a current diagnosis for this admission?: Yes Plan: Still qualifies as obese but he looks thinner and has likely lost both muscle mass and adipose tissue despite adequate TF. (6) Anemia Qualifiers: Anemia type: iron deficiency Is this a current diagnosis for this admission?: Yes (7) CKD (chronic kidney disease) stage 5, GFR less than 15 ml/min Is this a current diagnosis for this admission?: Yes Plan: No need for HD today. (8) Hypocalcemia Is this a current diagnosis for this admission?: Yes Plan: Resolved (9) HTN (hypertension) Is this a current diagnosis for this admission?: Yes Plan: Still on nicardipine. Plan Summary: Continue to turn down vent settings as tolerated. Critical Time Critical Time (minutes): 35 Level of Care: ICU Anticipated discharge: SNF Anticipated DC Timeframe: Other -: 1. The care of a critical patient is a dynamic process. This note is a environmental marketing representative synopsis but static in nature. The timeframe for treatments given in order is not necessarily the actual time these treatments may have been done. 2. This patient requires critical care secondary to ongoing requirements for therapy not offered or safe outside the critical care environment. Transfer to a lower level of care will result in altered life or limb morbidity and mortality. 3. Multidisciplinary rounds completed. 4. ABCDE bundle addressed.
[2020-03-14] MEDS: INSULIN LISPRO 100 UNIT/ML 3 ML VIAL SUBCUT SCH ×3 (08:33→17:17)
[2020-03-14 08:40] LABS: ABSOLUTE MONOCYTES # (MANUAL) 0.9 10^3/uL (0.1-1.4); BAND NEUTROPHILS % (MANUAL) 1 % (3-5); BASOPHILS % (MANUAL) 0 % (0-2); EOSINOPHILS % (MANUAL) 0 % (0-6); LYMPHOCYTES % (MANUAL) 7 % (13-45); MONOCYTES % (MANUAL) 6 % (3-13); MYELOCYTES % (MANUAL) 2 % (0); NUCLEATED RED BLOOD CELLS 1 /100 WBC (0); SEGMENTED NEUTROPHILS % (MAN) 84 % (42-78); TOTAL CELLS COUNTED 100
[2020-03-14 08:41] LABS: ANISOCYTOSIS 2+; POLYCHROMASIA SLIGHT
[2020-03-14 08:42] LABS: PLATELET COMMENT ADEQUATE
[2020-03-14 08:58] LABS: ARTERIAL BLOOD BASE EXCESS 2.2 mmol/L; ARTERIAL BLOOD FIO2 60%; ARTERIAL BLOOD H2CO3 1.03 mmol/L (1.05-1.35); ARTERIAL BLOOD HCO3 25.5 mmol/L (20-24); ARTERIAL BLOOD PCO2 34.2 mmHg (35-45); ARTERIAL BLOOD PH 7.49 (7.35-7.45); ARTERIAL BLOOD TOTAL CO2 26.5 mmol/L (23-27)
--- NOTE | 2020-03-14 10:00 | RADIOLOGY REPORT (SQ) ---
EXAM DESCRIPTION: CHEST SINGLE VIEW IMAGES COMPLETED DATE/TIME: 03/14/2020 5:44 am REASON FOR STUDY: vented COMPARISON: Chest radiograph 03/13/2020 NUMBER OF VIEWS: One view. TECHNIQUE: Single frontal radiographic view of the chest acquired. LIMITATIONS: None. FINDINGS: LUNGS AND PLEURA: Persistent patchy bibasilar opacities. The right costophrenic angle is obscured. No left pleural effusion. No pneumothorax. MEDIASTINUM AND HILAR STRUCTURES: Unchanged HEART AND VASCULAR STRUCTURES: Mild cardiomegaly. BONES: No acute findings. HARDWARE: Right internal jugular central venous catheter, tracheostomy, and enteric tube are unchange d. Left atrial appendage clip, cardiac recorder, and median sternotomy wires are present. OTHER: No other significant finding. IMPRESSION: No significant interval change in the bibasilar patchy pulmonary opacities. Support dev ices are unchanged. TECHNICAL DOCUMENTATION: JOB ID: [id number] 2010 [employer]- All Rights Reserved Reading location - IP/workstation name: [email or web address]
[2020-03-14] MEDS: PANTOPRAZOLE SODIUM 40 MG VIAL IV SCH (10:16)
[2020-03-14] MEDS: DIGOXIN INJ 0.5 MG/2 ML AMPULE IV SCH (10:16)
[2020-03-14] MEDS: CHOLECALCIFEROL (D3) 1,000 UNIT (25 MCG) TABLET NG SCH ×3 (10:16→17:17)
[2020-03-14] MEDS: DEXAMETHASONE SOD PHOS INJ 10 MG/1 ML VIAL IV SCH (10:16)
[2020-03-14] MEDS: AMINO AC/PROTEIN HYDR/WHEY PRO 11 GM/45 ML PKT NG SCH ×4 (10:16→22:01)
[2020-03-14] MEDS: SODIUM BICARBONATE 650 MG TABLET NG SCH ×2 (10:16→22:01)
[2020-03-14] MEDS: CALCITRIOL 1 MCG/ML ORAL SOLN 15 ML NG SCH (10:17)
[2020-03-14] MEDS: INSULIN GLARGINE,HUM.REC.ANLOG 1,000 UNIT/10 ML VIAL SUBCUT SCH (11:46)
[2020-03-15] MEDS: LEVALBUTEROL HCL NEB 1.25 MG/3 ML AMPUL NEB SCH ×4 (02:22→21:48)
[2020-03-15] MEDS: INSULIN LISPRO 100 UNIT/ML 3 ML VIAL SUBCUT SCH ×4 (02:40→17:24)
[2020-03-15] MEDS: CALCIUM ACETATE 667 MG CAPSULE NG SCH ×3 (07:33→21:25)
[2020-03-15] MEDS: DOXYCYCLINE HYCLATE 100 MG in DEXTROSE 5%-WATER 250 ML IV SCH (07:34)
[2020-03-15] MEDS: METOPROLOL TARTRATE 50 MG TABLET NG SCH ×2 (07:34→13:33)
[2020-03-15 08:02] LABS: ARTERIAL BLOOD BASE EXCESS 0.3 mmol/L; ARTERIAL BLOOD H2CO3 0.84 mmol/L (1.05-1.35); ARTERIAL BLOOD HCO3 22.6 mmol/L (20-24); ARTERIAL BLOOD O2 SATURATION 95.5 % (94-98); ARTERIAL BLOOD PCO2 27.8 mmHg (35-45); ARTERIAL BLOOD PH 7.53 (7.35-7.45); ARTERIAL BLOOD PO2 67.8 mmHg (80-100); ARTERIAL BLOOD TOTAL CO2 23.4 mmol/L (23-27)
[2020-03-15 08:04] LABS: ARTERIAL BLOOD FIO2 45%
[2020-03-15 08:05] LABS: HEMOGLOBIN 8.7 g/dL (13.5-17.0); MEAN CORPUSCULAR HEMOGLOBIN 32.1 pg (27.0-33.4); MEAN CORPUSCULAR HGB CONC 33.5 g/dL (32.0-36.0); MEAN CORPUSCULAR VOLUME 96 fl (80-97); PLATELET COUNT 278 10^3/uL (150-450); RED BLOOD COUNT 2.71 10^6/uL (4.35-5.55); RED CELL DISTRIBUTION WIDTH 19.5 % (11.5-14.0); WHITE BLOOD COUNT 18.3 10^3/uL (4.0-10.5)
[2020-03-15 08:11] LABS: ALBUMIN 2.7 g/dL (3.5-5.0); ALKALINE PHOSPHATASE 141 U/L (38-126); ANION GAP 11 (5-19); ASPARTATE AMINO TRANSFERASE 31 U/L (17-59); BILIRUBIN,DIRECT 0.7 mg/dL (0.0-0.4); BILIRUBIN,TOTAL 0.7 mg/dL (0.2-1.3); BLOOD UREA NITROGEN 82 mg/dL (7-20); CALCIUM 8.6 mg/dL (8.4-10.2); CARBON DIOXIDE 23 mmol/L (22-30); CHLORIDE 96 mmol/L (98-107); GLUCOSE 122 mg/dL (75-110); POTASSIUM 4.1 mmol/L (3.6-5.0); TOTAL PROTEIN 5.3 g/dL (6.3-8.2)
[2020-03-15 08:35] LABS: ABSOLUTE LYMPHOCYTES# (MANUAL) 1.6 10^3/uL (0.5-4.7); ABSOLUTE MONOCYTES # (MANUAL) 0.9 10^3/uL (0.1-1.4); BAND NEUTROPHILS % (MANUAL) 4 % (3-5); BASOPHILS % (MANUAL) 0 % (0-2); EOSINOPHILS % (MANUAL) 0 % (0-6); LYMPHOCYTES % (MANUAL) 9 % (13-45); METAMYELOCYTES % (MANUAL) 1 % (0-1); MONOCYTES % (MANUAL) 5 % (3-13); MYELOCYTES % (MANUAL) 3 % (0); NUCLEATED RED BLOOD CELLS 1 /100 WBC (0); SEGMENTED NEUTROPHILS % (MAN) 78 % (42-78); TOTAL CELLS COUNTED 100
--- NOTE | 2020-03-15 08:36 | PDOC CRITICAL CARE PROG REPORT ---
General Date:: 03/15/20 ICU Day:: 32 Ventilator Day:: 32 Hospital Day:: 36 Resuscitation Status: Full Code Events in the past 12 to 24 Hours:: Pulmonary support is less. Review of systems relevant to events:: Pulmonary, neurologic CV. Reason for ICU Addmission:: Acute respiratory distress and need for intubation. Now trached but still on the vent on fairly high support. - Medications: Medications reviewed and adjusted accordingly: Yes Vasopressors:: None Sedation:: None Physical Exam Vital Signs: Temp Pulse Resp BP Pulse Ox 98.1 F 107 H 21 H 153/55 H 100 03/14/20 16:00 03/15/20 02:22 03/15/20 02:22 03/15/20 02:07 03/15/20 05:00 Pulse Oximeter Nocturnal Start: 02/08/20 13:55 Freq: RTQ4 Status: Complete Protocol: Document 02/09/20 04:00 LRO (Rec: 02/09/20 05:38 LRO [id number]) Nocturnal Pulse Oximetry Equipment Usage Equipment in Use Oxygen Delivery Method (includes room Room Air air) O2 Sat by Pulse Oximetry (92-100) 95 Continuous SpO2 Machine # 2 Pulse Oximeter Nocturnal Start: 02/10/20 11:39 Freq: RTQ4 Status: Complete Protocol: Document 02/11/20 04:06 PMU (Rec: 02/11/20 05:06 PMU [email or web address]) Nocturnal Pulse Oximetry Equipment Usage Equipment in Use Oxygen Delivery Method (includes room Room Air air) O2 Sat by Pulse Oximetry (92-100) 93 Continuous SpO2 Machine # N2 Intake & Output 03/14/20 03/15/20 03/16/20 06:59 06:59 06:59 Intake Total 1572 1858 Output Total 1360 350 Balance 212 1508 Weight 114.3 kg 114.5 kg Weight/Height Weight 114.5 kg Height 5 ft 9 in General appearance: PRESENT: no acute distress, obese Head exam: PRESENT: atraumatic, normocephalic Eye exam: PRESENT: conjunctiva pink, EOMI, PERRLA. ABSENT: scleral icterus Ear exam: PRESENT: normal external ear exam Mouth exam: PRESENT: moist, tongue midline Respiratory exam: PRESENT: clear to auscultation kevyn, decreased breath sounds. ABSENT: rales, rhonchi, wheezes Cardiovascular exam: PRESENT: irregular rhythm. ABSENT: diastolic murmur, rubs, systolic murmur GI/Abdominal exam: PRESENT: normal bowel sounds, soft. ABSENT: distended, guarding, mass, organolmegaly, rebound, tenderness Rectal exam: PRESENT: deferred Gentrourinary exam: PRESENT: indwelling catheter Extremities exam: PRESENT: +1 edema, other - Heel ulcers. Neurological exam: PRESENT: alert, altered, awake, CN II-XII grossly intact, other - Does not move purposefully perhaps secondary to weakness Skin exam: PRESENT: other - Sacral decubitis Tubes/Lines: PRESENT: Nasogastic Tube, Other - Tracheotomy Laboratory/Radiographs Laboratory Results: 03/14/20 03/14/20 03/15/20 06:50 08:30 07:30 WBC 14.3 H RBC 2.57 L Hgb 8.1 L Hct 24.7 L MCV 96 MCH 31.7 MCHC 33.0 RDW 19.6 H Plt Count 239 Seg Neutrophils % Not Reportable Carbonic Acid 1.03 L 0.84 L HCO3/H2CO3 Ratio 24:1 26:1 ABG pH 7.49 H 7.53 H ABG pCO2 34.2 L 27.8 L ABG pO2 74.0 L 67.8 L ABG HCO3 25.5 H 22.6 ABG O2 Saturation 96.0 95.5 ABG Base Excess 2.2 0.3 FiO2 60% 45% 03/09/20 06:50 Blood Blood Culture - Final NO GROWTH IN 5 DAYS 03/09/20 06:00 Blood Blood Culture - Final NO GROWTH IN 5 DAYS 02/08/20 02/08/20 02/21/20 09:49 13:11 04:50 Troponin I 0.160 0.155 NT-Pro-B Natriuret Pep 5540 H 39627 H 02/26/20 03/09/20 05:35 04:00 Troponin I NT-Pro-B Natriuret Pep 50026 H 94636 H Impressions: Hip/Pelvis X-Ray 02/08/20 00:00 IMPRESSION: No acute fracture. Severe degenerative changes of the left hip. Knee X-Ray 02/08/20 00:00 IMPRESSION: NEGATIVE STUDY OF THE RIGHT KNEE. NO RADIOGRAPHIC EVIDENCE OF ACUTE INJURY. Renal Ultrasound 02/21/20 00:00 IMPRESSION: Increased echogenicity of the renal parenchyma suggestive of underlying chronic medical renal disease. There is no hydronephrosis. There is a Ryan catheter within the urinary bladder. Head CT 03/08/20 08:56 IMPRESSION: MILD CHRONIC CHANGES OF ATROPHY AND MICROVASCULAR ISCHEMIA. NO ACUTE PROCESS. EVIDENCE OF ACUTE STROKE: NO. Chest CT 03/08/20 10:12 IMPRESSION: Extensive bilateral infiltrates. No pneumothorax. KUB X-Ray 03/10/20 00:00 IMPRESSION: Nonspecific bowel gas pattern. Esophagogastric tube tip and side- hole are within the stomach. All labs, radiographs, diagnostic studies and EKGs were personally reviewed: Yes In addition, reports of radiographic and diagnostic studies were read: Yes Assessment and Plan - Diagnosis (1) Acute respiratory failure due to COVID-19 Is this a current diagnosis for this admission?: Yes Plan: Seems to be improving today. Have gotten Fio2 to 40% and will now try PEEP to 5 and then rate. (2) Acute on chronic diastolic CHF (congestive heart failure) Is this a current diagnosis for this admission?: Yes Plan: Inactive (3) Coronary artery disease Qualifiers: Coronary Disease-Associated Artery/Lesion type: unspecified vessel or lesion type [place] vs. transplanted heart: [place] heart Associated angina: with unspecified angina Qualified Code(s): I25.119 - Atherosclerotic heart disease of [place] coronary artery with unspecified angina pectoris Is this a current diagnosis for this admission?: Yes Plan: Stable. (4) Elevated brain natriuretic peptide (BNP) level Is this a current diagnosis for this admission?: Yes Plan: High secondary to COVID (5) Obesity (BMI 30-39.9) Is this a current diagnosis for this admission?: Yes Plan: Chronic (6) Anemia Qualifiers: Anemia type: iron deficiency Is this a current diagnosis for this admission?: Yes Plan: Labs still pending today. (7) CKD (chronic kidney disease) stage 5, GFR less than 15 ml/min Is this a current diagnosis for this admission?: Yes Plan: Dialysis when needed. (8) HTN (hypertension) Is this a current diagnosis for this admission?: Yes Plan: Pt is still on Cardene will swith metoprolol to labetolol and try to discontinue Cardene. (9) Polyneuropathy associated with critical illness Is this a current diagnosis for this admission?: Yes Plan: The longer this lasts the more it is looking like polyneuropathy of critical illness. This could be manager long term care or even permanent. Will get PT involved. Plan Summary: Wean vent today. Trying to Trach collar soon. Critical Time Critical Time (minutes): 35 Level of Care: ICU Anticipated discharge: SNF Anticipated DC Timeframe: Other -: 1. The care of a critical patient is a dynamic process. This note is a outbound telemarketing representative synopsis but static in nature. The timeframe for treatments given in order is not necessarily the actual time these treatments may have been done. 2. This patient requires critical care secondary to ongoing requirements for therapy not offered or safe outside the critical care environment. Transfer to a lower level of care will result in altered life or limb morbidity and mortality. 3. Multidisciplinary rounds completed. 4. ABCDE bundle addressed.
[2020-03-15 08:37] LABS: ANISOCYTOSIS 2+; POLYCHROMASIA SLIGHT; TOXIC GRANULATION 1+
[2020-03-15 08:38] LABS: PLATELET CLUMPS PRESENT; PLATELET COMMENT ADEQUATE
[2020-03-15] MEDS: AMINO AC/PROTEIN HYDR/WHEY PRO 11 GM/45 ML PKT NG SCH ×4 (09:28→21:25)
[2020-03-15] MEDS: DIGOXIN INJ 0.5 MG/2 ML AMPULE IV SCH (09:29)
[2020-03-15] MEDS: CHOLECALCIFEROL (D3) 1,000 UNIT (25 MCG) TABLET NG SCH ×3 (09:29→17:23)
[2020-03-15] MEDS: SODIUM BICARBONATE 650 MG TABLET NG SCH ×2 (09:29→21:25)
[2020-03-15] MEDS: PANTOPRAZOLE SODIUM 40 MG VIAL IV SCH (09:29)
[2020-03-15] MEDS: CALCITRIOL 1 MCG/ML ORAL SOLN 15 ML NG SCH (09:30)
[2020-03-15] MEDS: NICARDIPINE HCL RTU, ISO-OS 20 MG/200 ML RTUINJ IV PRN ×6 (09:31→22:36)
[2020-03-15] MEDS: DEXAMETHASONE SOD PHOS INJ 10 MG/1 ML VIAL IV SCH (09:34)
[2020-03-15] MEDS: INSULIN GLARGINE,HUM.REC.ANLOG 1,000 UNIT/10 ML VIAL SUBCUT SCH (09:40)
--- NOTE | 2020-03-15 09:44 | RADIOLOGY REPORT (SQ) ---
9 EXAM DESCRIPTION: CHEST SINGLE VIEW IMAGES COMPLETED DATE/TIME: 03/15/2020 5:31 am REASON FOR STUDY: vented COMPARISON: 03/14/2020 EXAM PARAMETERS: NUMBER OF VIEWS: One view. TECHNIQUE: Single frontal radiographic view of the chest acquired. RADIATION DOSE: NA LIMITATIONS: None. FINDINGS: LUNGS AND PLEURA: Diffuse patchy opacification in the right mid to lower lung and left mid to lower lung, stable from prior. Loculated right lateral pleural effusion, also unchanged. No pne umothorax. MEDIASTINUM AND HILAR STRUCTURES: No masses. Contour normal. HEART AND VASCULAR STRUCTURES: Moderate cardiomegaly. No pulmonary vascular congestion. Postoperati ve changes in the mediastinum. BONES: No acute findings. HARDWARE: Tracheostomy tube, right IJ central venous catheter, esophagogastric tube are unchanged in position. Loop recorder is noted. OTHER: No other significant finding. IMPRESSION: No significant interval change. Diffuse bilateral mid to lower lung patchy opacities an d small right effusion are stable. TECHNICAL DOCUMENTATION: JOB ID: [id number] 2010 [employer]- All Rights Reserved Reading location - IP/workstation name: [email or web address]
[2020-03-15] MEDS: LABETALOL HCL 200 MG TABLET PO SCH ×2 (11:00→21:25)
[2020-03-16] MEDS: INSULIN LISPRO 100 UNIT/ML 3 ML VIAL SUBCUT SCH ×5 (00:13→23:57)
[2020-03-16] MEDS: NICARDIPINE HCL RTU, ISO-OS 20 MG/200 ML RTUINJ IV PRN ×3 (01:13→06:45)
[2020-03-16] MEDS: LEVALBUTEROL HCL NEB 1.25 MG/3 ML AMPUL NEB SCH ×4 (02:46→19:58)
[2020-03-16 04:02] LABS: HEMATOCRIT 24.4 % (37.9-51.0); HEMOGLOBIN 8.1 g/dL (13.5-17.0); MEAN CORPUSCULAR HEMOGLOBIN 31.7 pg (27.0-33.4); MEAN CORPUSCULAR HGB CONC 33.2 g/dL (32.0-36.0); MEAN CORPUSCULAR VOLUME 96 fl (80-97); PLATELET COUNT 240 10^3/uL (150-450); RED BLOOD COUNT 2.55 10^6/uL (4.35-5.55); RED CELL DISTRIBUTION WIDTH 20.1 % (11.5-14.0)
[2020-03-16 04:04] LABS: APPEARANCE,URINE CLOUDY; BILIRUBIN,URINE NEGATIVE (NEGATIVE); COLOR,URINE YELLOW; GLUCOSE, URINE 50 mg/dL (NEGATIVE); KETONES,URINE NEGATIVE (NEGATIVE); LEUKOCYTE ESTERASE,URINE SMALL (NEGATIVE); NITRITE,URINE NEGATIVE (NEGATIVE); PROTEIN,URINE 100 mg/dL (NEGATIVE); URINE SPECIFIC GRAVITY 1.013; UROBILINOGEN,URINE NEGATIVE mg/dL (<2.0)
[2020-03-16 04:18] LABS: ARTERIAL BLOOD BASE EXCESS -0.2 mmol/L; ARTERIAL BLOOD H2CO3 0.87 mmol/L (1.05-1.35); ARTERIAL BLOOD HCO3 22.3 mmol/L (20-24); ARTERIAL BLOOD O2 SATURATION 89.7 % (94-98); ARTERIAL BLOOD PCO2 28.8 mmHg (35-45); ARTERIAL BLOOD PH 7.51 (7.35-7.45); ARTERIAL BLOOD PO2 50.6 mmHg (80-100); ARTERIAL BLOOD TOTAL CO2 23.1 mmol/L (23-27)
[2020-03-16 04:23] LABS: ARTERIAL BLOOD FIO2 35%
[2020-03-16 04:40] LABS: ABSOLUTE LYMPHOCYTES# (MANUAL) 0.5 10^3/uL (0.5-4.7); ABSOLUTE MONOCYTES # (MANUAL) 0.8 10^3/uL (0.1-1.4); BASOPHILS % (MANUAL) 0 % (0-2); EOSINOPHILS % (MANUAL) 0 % (0-6); LYMPHOCYTES % (MANUAL) 3 % (13-45); MONOCYTES % (MANUAL) 5 % (3-13); NUCLEATED RED BLOOD CELLS 2 /100 WBC (0); SEGMENTED NEUTROPHILS % (MAN) 92 % (42-78); TOTAL CELLS COUNTED 100
[2020-03-16 04:41] LABS: ANISOCYTOSIS 2+; PLATELET COMMENT ADEQUATE
[2020-03-16 04:47] LABS: POLYCHROMASIA SLIGHT
[2020-03-16 04:50] LABS: TOXIC GRANULATION SLIGHT
[2020-03-16 04:57] LABS: ALBUMIN 2.5 g/dL (3.5-5.0); ALKALINE PHOSPHATASE 131 U/L (38-126); ANION GAP 12 (5-19); ASPARTATE AMINO TRANSFERASE 28 U/L (17-59); BILIRUBIN,DIRECT 0.7 mg/dL (0.0-0.4); BILIRUBIN,TOTAL 0.7 mg/dL (0.2-1.3); BLOOD UREA NITROGEN 95 mg/dL (7-20); CALCIUM 8.5 mg/dL (8.4-10.2); CARBON DIOXIDE 22 mmol/L (22-30); CHLORIDE 95 mmol/L (98-107); GLUCOSE 108 mg/dL (75-110); POTASSIUM 4.3 mmol/L (3.6-5.0); TOTAL PROTEIN 4.8 g/dL (6.3-8.2)
[2020-03-16] MEDS ORDERED: EPOETIN ALFA-EPBX 20,000 UNIT in SYRINGE, DISPOSABLE, 1 EACH IV PRN (05:00)
[2020-03-16] MEDS ORDERED: HEPARIN SOD (PORCINE) 1,000 UNIT/ML 10 ML VIAL IV PRN ×2 (05:00→10:47)
[2020-03-16] MEDS: CALCIUM ACETATE 667 MG CAPSULE NG SCH (05:38)
--- NOTE | 2020-03-16 08:20 | RADIOLOGY REPORT (SQ) ---
EXAM DESCRIPTION: CHEST SINGLE VIEW IMAGES COMPLETED DATE/TIME: 03/16/2020 5:29 am REASON FOR STUDY: vented COMPARISON: 03/15/2020 NUMBER OF VIEWS: One view. TECHNIQUE: Single frontal radiographic image of the chest acquired. LIMITATIONS: None. FINDINGS: LUNGS AND PLEURA: Stable appearance. MEDIASTINUM AND HILAR STRUCTURES: Stable heart size and mediastinal structures. HEART AND VASCULAR STRUCTURES: Stable appearance. SUPPORT DEVICES: Appropriate location without change. BONES: No acute findings. OTHER: No other significant finding. IMPRESSION: STABLE APPEARANCE OF THE CHEST. SUPPORT DEVICES UNCHANGED. TECHNICAL DOCUMENTATION: JOB ID: [id number] 2010 [employer]- All Rights Reserved Reading location - IP/workstation name: [email or web address]
[2020-03-16] MEDS: PANTOPRAZOLE SODIUM 40 MG VIAL IV SCH (11:07)
[2020-03-16] MEDS: FENTANYL CITRATE INJ/PF 100 MCG/2 ML AMPUL IV PRN ×3 (11:07→20:50)
--- NOTE | 2020-03-16 11:07 | PDOC CRITICAL CARE PROG REPORT ---
General Date:: 03/16/20 ICU Day:: 33 Ventilator Day:: 33 Hospital Day:: 37 Resuscitation Status: Full Code Events in the past 12 to 24 Hours:: Pulmonary support is less. 03/16 The patient remains on SBT. I have decreased PS from 12 to 6. the poatient still appears to have good TVs. Maintaining his 02 sat nicely. CXR shows persistent loower lobe densities though impropcved frpom several days ago. He is on 40% FI02. The patient remains profoundly weak. he ois opff all antimicrobials at this time. Reason for ICU Addmission:: Acute respiratory distress and need for intubation. Now trached but still on the vent on fairly high support. Physical Exam Vital Signs: Temp Pulse Resp BP Pulse Ox 97.9 F 107 H 24 H 141/47 H 96 03/16/20 07:58 03/16/20 08:35 03/16/20 08:35 03/16/20 07:58 03/16/20 08:35 Pulse Oximeter Nocturnal Start: 02/08/20 13:55 Freq: RTQ4 Status: Complete Protocol: Document 02/09/20 04:00 LRO (Rec: 02/09/20 05:38 LRO [id number]) Nocturnal Pulse Oximetry Equipment Usage Equipment in Use Oxygen Delivery Method (includes room Room Air air) O2 Sat by Pulse Oximetry (92-100) 95 Continuous SpO2 Machine # 2 Pulse Oximeter Nocturnal Start: 02/10/20 11:39 Freq: RTQ4 Status: Complete Protocol: Document 02/11/20 04:06 PMU (Rec: 02/11/20 05:06 PMU [email or web address]) Nocturnal Pulse Oximetry Equipment Usage Equipment in Use Oxygen Delivery Method (includes room Room Air air) O2 Sat by Pulse Oximetry (92-100) 93 Continuous SpO2 Machine # N2 Intake & Output 03/15/20 03/16/20 03/17/20 06:59 06:59 06:59 Intake Total 2019 1920 Output Total 350 1475 0 Balance 1670 446 0 Weight 114.5 kg 120.3 kg Weight/Height Weight 120.3 kg Height 5 ft 9 in General appearance: PRESENT: no acute distress Laboratory/Radiographs Laboratory Results: 03/16/20 03:34 03/16/20 00:33 03/15/20 03/16/20 03/16/20 07:35 00:33 03:34 WBC Cancelled RBC Cancelled Hgb Cancelled Hct Cancelled MCV Cancelled MCH Cancelled MCHC Cancelled RDW Cancelled Plt Count Cancelled Seg Neutrophils % Cancelled Carbonic Acid 0.87 L HCO3/H2CO3 Ratio 25:1 ABG pH 7.51 H ABG pCO2 28.8 L ABG pO2 50.6 L ABG HCO3 22.3 ABG O2 Saturation 89.7 L ABG Base Excess -0.2 FiO2 35% Sodium 129.2 L Potassium 4.3 Chloride 95 L Carbon Dioxide 22 Anion Gap 12 BUN 95 H Creatinine 2.77 H Est GFR ( Amer) 28 L Glucose 108 Calcium 8.5 Magnesium 1.8 Total Bilirubin 0.7 AST 28 Alkaline Phosphatase 131 H Total Protein 4.8 L Albumin 2.5 L Urine Color Urine Appearance Urine pH Ur Specific [place] Urine Protein Urine Glucose (UA) Urine Ketones Urine Blood Urine Nitrite Ur Leukocyte Esterase Urine RBC (Auto) 03/16/20 03/16/20 03:34 03:34 WBC 16.0 H RBC 2.55 L Hgb 8.1 L Hct 24.4 L MCV 96 MCH 31.7 MCHC 33.2 RDW 20.1 H Plt Count 240 Seg Neutrophils % Not Reportable Carbonic Acid HCO3/H2CO3 Ratio ABG pH ABG pCO2 ABG pO2 ABG HCO3 ABG O2 Saturation ABG Base Excess FiO2 Sodium Potassium Chloride Carbon Dioxide Anion Gap BUN Creatinine Est GFR ( Amer) Glucose Calcium Magnesium Total Bilirubin AST Alkaline Phosphatase Total Protein Albumin Urine Color YELLOW Urine Appearance CLOUDY Urine pH 5.0 Ur Specific [place] 1.013 Urine Protein 100 H Urine Glucose (UA) 50 H Urine Ketones NEGATIVE Urine Blood MODERATE H Urine Nitrite NEGATIVE Ur Leukocyte Esterase SMALL H Urine RBC (Auto) 0 02/08/20 02/08/20 02/21/20 09:49 13:11 04:50 Troponin I 0.160 0.155 NT-Pro-B Natriuret Pep 5540 H 78877 H 02/26/20 03/09/20 05:35 04:00 Troponin I NT-Pro-B Natriuret Pep 90321 H 97747 H Impressions: Hip/Pelvis X-Ray 02/08/20 00:00 IMPRESSION: No acute fracture. Severe degenerative changes of the left hip. Knee X-Ray 02/08/20 00:00 IMPRESSION: NEGATIVE STUDY OF THE RIGHT KNEE. NO RADIOGRAPHIC EVIDENCE OF ACUTE INJURY. Renal Ultrasound 02/21/20 00:00 IMPRESSION: Increased echogenicity of the renal parenchyma suggestive of underlying chronic medical renal disease. There is no hydronephrosis. There is a Ryan catheter within the urinary bladder. Head CT 03/08/20 08:56 IMPRESSION: MILD CHRONIC CHANGES OF ATROPHY AND MICROVASCULAR ISCHEMIA. NO ACUTE PROCESS. EVIDENCE OF ACUTE STROKE: NO. Chest CT 03/08/20 10:12 IMPRESSION: Extensive bilateral infiltrates. No pneumothorax. KUB X-Ray 03/10/20 00:00 IMPRESSION: Nonspecific bowel gas pattern. Esophagogastric tube tip and side- hole are within the stomach. Chest X-Ray 03/16/20 06:00 IMPRESSION: STABLE APPEARANCE OF THE CHEST. SUPPORT DEVICES UNCHANGED. Assessment and Plan - Diagnosis (1) Acute kidney injury superimposed on chronic kidney disease Is this a current diagnosis for this admission?: Yes Plan: Historical baseline creatinine appears to be 1.6-1.8 R03/16 The patient continues to remains fairly oliguric. despite his much lower creatinine The oatient is getting regualrly dialyzed tiw. (2) Acute on chronic combined systolic (congestive) and diastolic (congestive) heart failure Is this a current diagnosis for this admission?: Yes Plan: Patient continues to appear euvolemic clinically 03/16 The patient is on dialysis. His edema appears to be a little better than it was a few weeks ago. His weight is actually up however, the past several days. His weight was 115.5 on 03/12 and is now about 120 kg. perhaps we can be a little more aggressive about getting fluid off at dialysis. (3) Acute respiratory failure due to COVID-19 Is this a current diagnosis for this admission?: Yes (4) Atrial fibrillation Qualifiers: Atrial fibrillation type: persistent (not longstanding) Qualified Code(s): I48.19 - Other persistent atrial fibrillation; I48.1 - Persistent atrial fibrillation Is this a current diagnosis for this admission?: Yes Plan: * * Rate control with metoprolol. Change 100 mg NG twice daily to 50 mg NG every 6 hours. Hold dose for hypotension or bradycardia. If additional rate control as needed, restart diltiazem. The patient is on digoxin daily as well presently. His heart rate is about 100- 110. (5) COVID-19 virus infection Is this a current diagnosis for this admission?: Yes Plan: The patient has been consistently Covid -19 positve. Unclear what this means clinically. (6) Diabetes 1.5, managed as type 2 Is this a current diagnosis for this admission?: Yes (7) Anemia Qualifiers: Anemia type: iron deficiency Is this a current diagnosis for this admission?: Yes Plan: The patient has a had a low grade anemia related largley to his CRF. He is getting supplemental Epogen at this time. H is actually down a tad since about 4 -5 days ago. nop overt signof gi bleed at this time. (8) Critical illness polyneuropathy Is this a current diagnosis for this admission?: Yes Plan: The aptient remains oprofoundly weakk. Has been in bed chronically ll for over 1 month. At various times he has been on heavy sedation and has been cvonsistently on steroids. He does not appear able to move hsi extrmities against gravity at this time. Critical Time Critical Time (minutes): 35 Level of Care: ICU -: 1. The care of a critical patient is a dynamic process. This note is a motor vehicle representative synopsis but static in nature. The timeframe for treatments given in order is not necessarily the actual time these treatments may have been done. 2. This patient requires critical care secondary to ongoing requirements for therapy not offered or safe outside the critical care environment. Transfer to a lower level of care will result in altered life or limb morbidity and mortality. 3. Multidisciplinary rounds completed. 4. ABCDE bundle addressed.
[2020-03-16] MEDS: DIGOXIN INJ 0.5 MG/2 ML AMPULE IV SCH (11:08)
[2020-03-16] MEDS: CHOLECALCIFEROL (D3) 1,000 UNIT (25 MCG) TABLET NG SCH ×3 (11:10→18:16)
[2020-03-16] MEDS: SODIUM BICARBONATE 650 MG TABLET NG SCH (11:10)
[2020-03-16] MEDS: INSULIN GLARGINE,HUM.REC.ANLOG 1,000 UNIT/10 ML VIAL SUBCUT SCH (11:11)
[2020-03-16] MEDS: DEXAMETHASONE 4 MG TABLET PO SCH (11:11)
[2020-03-16] MEDS: APIXABAN 2.5 MG TABLET PO SCH ×2 (11:11→18:16)
[2020-03-16] MEDS: LABETALOL HCL 200 MG TABLET NG SCH ×2 (11:11→22:00)
[2020-03-16] MEDS: CALCITRIOL 1 MCG/ML ORAL SOLN 15 ML NG SCH (11:12)
[2020-03-16] MEDS: AMINO AC/PROTEIN HYDR/WHEY PRO 11 GM/45 ML PKT NG SCH ×4 (11:13→22:00)
--- NOTE | 2020-03-16 12:41 | PDOC PROGRESS REPORT ---
Subjective Progress Note for:: 03/16/20 Reason For Visit: Patient seen in the ICU today for dialysis. Remains intubated but not sedated and status post tracheostomy. Undergoing dialysis without any issues. Is currently off all antibiotics and pressors. 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 Labs and medications were reviewed. Persistent abnormal LFTs are concerning. ? Underlying liver disease/fatty liver . His urine output is not improving. Di alysis orders were reviewed with the treating dialysis nurse. Patient care was discussed with the treating ICU nurse Keesha. Physical Exam Vital Signs: Temp Pulse Resp BP Pulse Ox 97.2 F 121 H 17 126/49 H 93 03/16/20 12:00 03/16/20 12:00 03/16/20 12:00 03/16/20 12:00 03/16/20 12:00 Pulse Oximeter Nocturnal Start: 02/08/20 13:55 Freq: RTQ4 Status: Complete Protocol: Document 02/09/20 04:00 LRO (Rec: 02/09/20 05:38 LRO [email or web address]) Nocturnal Pulse Oximetry Equipment Usage Equipment in Use Oxygen Delivery Method (includes room Room Air air) O2 Sat by Pulse Oximetry (92-100) 95 Continuous SpO2 Machine # 2 Pulse Oximeter Nocturnal Start: 02/10/20 11:39 Freq: RTQ4 Status: Complete Protocol: Document 02/11/20 04:06 PMU (Rec: 02/11/20 05:06 PMU [email or web address]) Nocturnal Pulse Oximetry Equipment Usage Equipment in Use Oxygen Delivery Method (includes room Room Air air) O2 Sat by Pulse Oximetry (92-100) 93 Continuous SpO2 Machine # N2 Intake & Output 03/15/20 03/16/20 03/17/20 06:59 06:59 06:59 Intake Total 2019 1921 157 Output Total 350 1475 30 Balance 1670 446 127 Weight 114.5 kg 120.3 kg General appearance: PRESENT: no acute distress Respiratory exam: PRESENT: clear to auscultation kevyn. ABSENT: crackles Cardiovascular exam: PRESENT: +S1, +S2 GI/Abdominal exam: PRESENT: normal bowel sounds, soft. ABSENT: organomegaly, tenderness Results Laboratory Results: 03/16/20 03:34 03/16/20 00:33 09/03/16/20 03/16/20 00:33 03:34 03:34 WBC 16.0 H RBC 2.55 L Hgb 8.1 L Hct 24.4 L MCV 96 MCH 31.7 MCHC 33.2 RDW 20.1 H Plt Count 240 Seg Neutrophils % Not Reportable Carbonic Acid 0.87 L HCO3/H2CO3 Ratio 25:1 ABG pH 7.51 H ABG pCO2 28.8 L ABG pO2 50.6 L ABG HCO3 22.3 ABG O2 Saturation 89.7 L ABG Base Excess -0.2 FiO2 35% Sodium 129.2 L Potassium 4.3 Chloride 95 L Carbon Dioxide 22 Anion Gap 12 BUN 95 H Creatinine 2.77 H Est GFR ( Amer) 28 L Glucose 108 Calcium 8.5 Magnesium 1.8 Total Bilirubin 0.7 AST 28 Alkaline Phosphatase 131 H Total Protein 4.8 L Albumin 2.5 L Urine Color Urine Appearance Urine pH Ur Specific Calcium Urine Protein Urine Glucose (UA) Urine Ketones Urine Blood Urine Nitrite Ur Leukocyte Esterase Urine RBC (Auto) 03/16/20 03:34 WBC RBC Hgb Hct MCV MCH MCHC RDW Plt Count Seg Neutrophils % Carbonic Acid HCO3/H2CO3 Ratio ABG pH ABG pCO2 ABG pO2 ABG HCO3 ABG O2 Saturation ABG Base Excess FiO2 Sodium Potassium Chloride Carbon Dioxide Anion Gap BUN Creatinine Est GFR ( Amer) Glucose Calcium Magnesium Total Bilirubin AST Alkaline Phosphatase Total Protein Albumin Urine Color YELLOW Urine Appearance CLOUDY Urine pH 5.0 Ur Specific Calcium 1.013 Urine Protein 100 H Urine Glucose (UA) 50 H Urine Ketones NEGATIVE Urine Blood MODERATE H Urine Nitrite NEGATIVE Ur Leukocyte Esterase SMALL H Urine RBC (Auto) 0 02/08/20 02/08/20 02/21/20 09:49 13:11 04:50 Troponin I 0.160 0.155 NT-Pro-B Natriuret Pep 5540 H 41073 H 02/26/20 03/09/20 05:35 04:00 Troponin I NT-Pro-B Natriuret Pep 50334 H 16233 H Impressions: Hip/Pelvis X-Ray 02/08/20 00:00 IMPRESSION: No acute fracture. Severe degenerative changes of the left hip. Knee X-Ray 02/08/20 00:00 IMPRESSION: NEGATIVE STUDY OF THE RIGHT KNEE. NO RADIOGRAPHIC EVIDENCE OF ACUTE INJURY. Renal Ultrasound 02/21/20 00:00 IMPRESSION: Increased echogenicity of the renal parenchyma suggestive of underlying chronic medical renal disease. There is no hydronephrosis. There is a Ryan catheter within the urinary bladder. Head CT 03/08/20 08:56 IMPRESSION: MILD CHRONIC CHANGES OF ATROPHY AND MICROVASCULAR ISCHEMIA. NO ACUTE PROCESS. EVIDENCE OF ACUTE STROKE: NO. Chest CT 03/08/20 10:12 IMPRESSION: Extensive bilateral infiltrates. No pneumothorax. KUB X-Ray 03/10/20 00:00 IMPRESSION: Nonspecific bowel gas pattern. Esophagogastric tube tip and side- hole are within the stomach. Chest X-Ray 03/16/20 06:00 IMPRESSION: STABLE APPEARANCE OF THE CHEST. SUPPORT DEVICES UNCHANGED. Assessment & Plan - Diagnosis (1) Acute kidney injury superimposed on chronic kidney disease Is this a current diagnosis for this admission?: Yes Plan: Acute on chronic kidney disease with patient having underlying baseline creatinine of around 1.7-2. Currently oligo-anuric. Initiated hemodialysis through a temporary catheter. Dialysis is ongoing. Plan to remove 3 L of fluid as tolerated. Discussed and reviewed dialysis orders with the treating dialysis nurse.This patient is third spacing quite a bit especially with his low albumin and therefore fluid extraction more than reason would be difficult.We will also initiate IV diuresis. (2) Acute on chronic combined systolic (congestive) and diastolic (congestive) heart failure Is this a current diagnosis for this admission?: Yes Plan: Improved monitor and see response to gentle dialysis. (3) Acute respiratory failure due to COVID-19 Is this a current diagnosis for this admission?: Yes Plan: Remains intubated and less sedated. Now status post tracheostomy. Being managed by street light servicer supervisor. Monitor. (4) Hypocalcemia Is this a current diagnosis for this admission?: Yes Plan: Stable. Monitor. (5) Metabolic acidosis Is this a current diagnosis for this admission?: Yes Plan: Stable on HD.Will DC p.o. replacements (6) Atrial fibrillation Qualifiers: Atrial fibrillation type: persistent (not longstanding) Qualified Code(s): I48.19 - Other persistent atrial fibrillation; I48.1 - Persistent atrial fibrillation Is this a current diagnosis for this admission?: Yes Plan: Currently rate controlled. Monitor. (7) Hyperglycemia Plan: As per street light servicer supervisor. (8) COVID-19 virus infection Is this a current diagnosis for this admission?: Yes Plan: As per street light servicer supervisor.His last serology for COVID 19 was done on 03/05 and was per sistently positive. (9) Anemia Qualifiers: Anemia type: iron deficiency Is this a current diagnosis for this admission?: Yes Plan: .Patient has received multiple blood transfusions. Started erythropoietin. Monitor. (10) Hyponatremia Is this a current diagnosis for this admission?: Yes Plan: See response to fluid removal. Monitor. (11) Abnormal LFTs Is this a current diagnosis for this admission?: Yes Plan: Persistently abnormal LFTs concerning. He is over his septic stage and therefore would recommend imaging studies/ultrasound to delineate any possible underlying liver disease.
[2020-03-16] MEDS: FUROSEMIDE INJ/PF 40 MG/4 ML SDV IV SCH (21:59)
[2020-03-17] MEDS: LEVALBUTEROL HCL NEB 1.25 MG/3 ML AMPUL NEB SCH ×4 (01:39→20:29)
[2020-03-17] MEDS: FENTANYL CITRATE INJ/PF 100 MCG/2 ML AMPUL IV PRN (06:02)
[2020-03-17] MEDS: INSULIN LISPRO 100 UNIT/ML 3 ML VIAL SUBCUT SCH ×3 (06:26→18:43)
[2020-03-17 07:04] LABS: PHOSPHORUS 4.2 mg/dL (2.5-4.5)
[2020-03-17 08:26] LABS: ALBUMIN 2.7 g/dL (3.5-5.0); ALKALINE PHOSPHATASE 132 U/L (38-126); ANION GAP 13 (5-19); ASPARTATE AMINO TRANSFERASE 39 U/L (17-59); BILIRUBIN,DIRECT 0.7 mg/dL (0.0-0.4); BILIRUBIN,TOTAL 0.9 mg/dL (0.2-1.3); BLOOD UREA NITROGEN 81 mg/dL (7-20); CALCIUM 8.4 mg/dL (8.4-10.2); CARBON DIOXIDE 24 mmol/L (22-30); CHLORIDE 96 mmol/L (98-107); GLUCOSE 86 mg/dL (75-110); POTASSIUM 3.9 mmol/L (3.6-5.0); TOTAL PROTEIN 5.1 g/dL (6.3-8.2)
--- NOTE | 2020-03-17 08:38 | PDOC CRITICAL CARE PROG REPORT ---
General Date:: 03/17/20 ICU Day:: 34 Hospital Day:: 38 Resuscitation Status: Full Code Events in the past 12 to 24 Hours:: Pulmonary support is less. 03/16 The patient remains on SBT. I have decreased PS from 12 to 6. the poatient still appears to have good TVs. Maintaining his 02 sat nicely. CXR shows persistent loower lobe densities though impropcved frpom several days ago. He is on 40% FI02. The patient remains profoundly weak. he ois opff all antimicrobials at this time. 03/17 The patient was placed on trach collar overnight and that is where he has remained. He is alert and appears to unndedrstand me when i speak with him. Respiratory stastus is stable. CXR shows bilaterl principally lower lobe infiltrates. Weight is down about 5 kg after yesterday's dailysis. The patient appears ready for placement at this time he has a rather severte critical illness polyneuropathy. Reason for ICU Addmission:: Acute respiratory distress and need for intubation. Now trached but still on the vent on fairly high support. Physical Exam Vital Signs: Temp Pulse Resp BP Pulse Ox 97.2 F 91 22 H 136/63 H 93 03/16/20 16:00 03/17/20 01:39 03/17/20 07:00 03/17/20 06:30 03/17/20 07:00 Pulse Oximeter Nocturnal Start: 02/08/20 13:55 Freq: RTQ4 Status: Complete Protocol: Document 02/09/20 04:00 LRO (Rec: 02/09/20 05:38 LRO [email or web address]) Nocturnal Pulse Oximetry Equipment Usage Equipment in Use Oxygen Delivery Method (includes room Room Air air) O2 Sat by Pulse Oximetry (92-100) 95 Continuous SpO2 Machine # 2 Pulse Oximeter Nocturnal Start: 02/10/20 11:39 Freq: RTQ4 Status: Complete Protocol: Document 02/11/20 04:06 PMU (Rec: 02/11/20 05:06 PMU [email or web address]) Nocturnal Pulse Oximetry Equipment Usage Equipment in Use Oxygen Delivery Method (includes room Room Air air) O2 Sat by Pulse Oximetry (92-100) 93 Continuous SpO2 Machine # N2 Intake & Output 03/16/20 03/17/20 03/18/20 06:59 06:59 06:59 Intake Total 1921 448 Output Total 1477 3834 Balance 446 -3386 Weight 120.3 kg 114.8 kg Weight/Height Weight 114.8 kg Height 5 ft 9 in General appearance: PRESENT: no acute distress, cooperative, obese Eye exam: PRESENT: conjunctiva pink, EOMI, PERRLA Mouth exam: PRESENT: moist Neck exam: ABSENT: tenderness, thyromegaly Respiratory exam: PRESENT: stridor. ABSENT: accessory muscle use, unlabored, wheezes Cardiovascular exam: PRESENT: irregular rhythm Pulses: PRESENT: normal dorsalis pedis pul GI/Abdominal exam: PRESENT: distended, normal bowel sounds, soft. ABSENT: tenderness Rectal exam: PRESENT: deferred Extremities exam: ABSENT: calf tenderness, clubbing, pedal edema Neurological exam: PRESENT: alert, awake Skin exam: ABSENT: normal color Tubes/Lines: PRESENT: Peg Tube, Other Laboratory/Radiographs Laboratory Results: 03/16/20 03:34 03/17/20 06:11 Phosphorus 4.2 Magnesium 1.9 02/08/20 02/08/20 02/21/20 09:49 13:11 04:50 Troponin I 0.160 0.155 NT-Pro-B Natriuret Pep 5540 H 52359 H 02/26/20 03/09/20 05:35 04:00 Troponin I NT-Pro-B Natriuret Pep 96385 H 92246 H Impressions: Hip/Pelvis X-Ray 02/08/20 00:00 IMPRESSION: No acute fracture. Severe degenerative changes of the left hip. Knee X-Ray 02/08/20 00:00 IMPRESSION: NEGATIVE STUDY OF THE RIGHT KNEE. NO RADIOGRAPHIC EVIDENCE OF ACUTE INJURY. Renal Ultrasound 02/21/20 00:00 IMPRESSION: Increased echogenicity of the renal parenchyma suggestive of underlying chronic medical renal disease. There is no hydronephrosis. There is a Ryan catheter within the urinary bladder. Head CT 03/08/20 08:56 IMPRESSION: MILD CHRONIC CHANGES OF ATROPHY AND MICROVASCULAR ISCHEMIA. NO ACUTE PROCESS. EVIDENCE OF ACUTE STROKE: NO. Chest CT 03/08/20 10:12 IMPRESSION: Extensive bilateral infiltrates. No pneumothorax. KUB X-Ray 03/10/20 00:00 IMPRESSION: Nonspecific bowel gas pattern. Esophagogastric tube tip and side- hole are within the stomach. Chest X-Ray 03/16/20 06:00 IMPRESSION: STABLE APPEARANCE OF THE CHEST. SUPPORT DEVICES UNCHANGED. Assessment and Plan - Diagnosis (1) Acute kidney injury superimposed on chronic kidney disease Is this a current diagnosis for this admission?: Yes Plan: Historical baseline creatinine appears to be 1.6-1.8 R03/16 The patient continues to remains fairly oliguric. despite his much lower creatinine The oatient is getting regualrly dialyzed tiw' 03/17 It is iunlikely his kidneys will ever recover.Creatinine in the 2-3 range and and he has persistent oliguria.. (2) Acute on chronic combined systolic (congestive) and diastolic (congestive) heart failure Is this a current diagnosis for this admission?: Yes Plan: Patient continues to appear euvolemic clinically 03/16 The patient is on dialysis. His edema appears to be a little better than it was a few weeks ago. His weight is actually up however, the past several days. His weight was 115.5 on 03/12 and is now about 120 kg. perhaps we can be a little more aggressive about getting fluid off at dialysis. 03/17 The patient has a long hsitory of systolic dysfn. He was a wearing a lifevest at one time His weight is down after his lasrt dialysis. No change in02 needs latewly Little change in radiolgical appearance. (3) Acute respiratory failure due to COVID-19 Is this a current diagnosis for this admission?: Yes (4) Atrial fibrillation Qualifiers: Atrial fibrillation type: persistent (not longstanding) Qualified Code(s): I48.19 - Other persistent atrial fibrillation; I48.1 - Persistent atrial fibril lation Is this a current diagnosis for this admission?: Yes Plan: * * Rate control with metoprolol. Change 100 mg NG twice daily to 50 mg NG every 6 hours. Hold dose for hypotension or bradycardia. If additional rate control as needed, restart diltiazem. The patient is on digoxin daily as well presently. His heart rate is about 100- 110. 03/17 Heart rate generally controlled presently. The heart rate is generally < 100m or 11o. (5) COVID-19 virus infection Is this a current diagnosis for this admission?: Yes (6) Diabetes 1.5, managed as type 2 Is this a current diagnosis for this admission?: Yes (7) Anemia Qualifiers: Anemia type: iron deficiency Is this a current diagnosis for this admission?: Yes (8) Critical illness polyneuropathy Is this a current diagnosis for this admission?: Yes Critical Time Critical Time (minutes): 25 Level of Care: ICU -: 1. The care of a critical patient is a dynamic process. This note is a financial sales representative synopsis but static in nature. The timeframe for treatments given in order is not necessarily the actual time these treatments may have been done. 2. This patient requires critical care secondary to ongoing requirements for therapy not offered or safe outside the critical care environment. Transfer to a lower level of care will result in altered life or limb morbidity and mortality. 3. Multidisciplinary rounds completed. 4. ABCDE bundle addressed.
[2020-03-17] MEDS: PANTOPRAZOLE SODIUM 40 MG VIAL IV SCH (11:20)
[2020-03-17] MEDS: DIGOXIN INJ 0.5 MG/2 ML AMPULE IV SCH (11:20)
[2020-03-17] MEDS: CHOLECALCIFEROL (D3) 1,000 UNIT (25 MCG) TABLET NG SCH ×3 (11:20→17:56)
[2020-03-17] MEDS: DEXAMETHASONE 4 MG TABLET PO SCH (11:21)
[2020-03-17] MEDS: APIXABAN 2.5 MG TABLET NG SCH ×2 (11:21→17:56)
[2020-03-17] MEDS: AMINO AC/PROTEIN HYDR/WHEY PRO 11 GM/45 ML PKT NG SCH ×4 (11:21→21:13)
[2020-03-17] MEDS: FUROSEMIDE INJ/PF 40 MG/4 ML SDV IV SCH ×2 (11:21→21:12)
[2020-03-17] MEDS: LABETALOL HCL 200 MG TABLET NG SCH ×2 (11:21→21:13)
[2020-03-17] MEDS: CALCITRIOL 1 MCG/ML ORAL SOLN 15 ML NG SCH (11:22)
[2020-03-17] MEDS: INSULIN GLARGINE,HUM.REC.ANLOG 1,000 UNIT/10 ML VIAL SUBCUT SCH (11:23)
--- NOTE | 2020-03-17 14:34 | EKG REPORT ---
SEVERITY:- ABNORMAL ECG - ATRIAL FIBRILLATION, V-RATE 78-135 VENTRICULAR PREMATURE COMPLEX REPOL ABNRM SUGGESTS ISCHEMIA, ANT-LAT LEADS : Confirmed by: Pam Carmen MD 17-Mar-2020 14:34:03
[2020-03-18] MEDS: INSULIN LISPRO 100 UNIT/ML 3 ML VIAL SUBCUT SCH ×4 (00:10→17:59)
[2020-03-18] MEDS: LEVALBUTEROL HCL NEB 1.25 MG/3 ML AMPUL NEB SCH ×4 (02:37→20:10)
[2020-03-18 04:53] LABS: HEMATOCRIT 26.2 % (37.9-51.0); HEMOGLOBIN 8.5 g/dL (13.5-17.0); MEAN CORPUSCULAR HEMOGLOBIN 31.5 pg (27.0-33.4); MEAN CORPUSCULAR HGB CONC 32.6 g/dL (32.0-36.0); MEAN CORPUSCULAR VOLUME 97 fl (80-97); PLATELET COUNT 258 10^3/uL (150-450); RED BLOOD COUNT 2.71 10^6/uL (4.35-5.55)
[2020-03-18 04:56] LABS: ANION GAP 12 (5-19); BLOOD UREA NITROGEN 93 mg/dL (7-20); CARBON DIOXIDE 23 mmol/L (22-30); CHLORIDE 97 mmol/L (98-107); GLUCOSE 97 mg/dL (75-110); POTASSIUM 4.1 mmol/L (3.6-5.0)
[2020-03-18] MEDS ORDERED: EPOETIN ALFA-EPBX 20,000 UNIT in SYRINGE, DISPOSABLE, 1 EACH IV PRN (05:00)
[2020-03-18] MEDS ORDERED: HEPARIN SOD (PORCINE) 1,000 UNIT/ML 10 ML VIAL IV PRN (05:00)
[2020-03-18 05:09] LABS: BASOPHILS % (MANUAL) 0 % (0-2); EOSINOPHILS % (MANUAL) 0 % (0-6); LYMPHOCYTES % (MANUAL) 7 % (13-45); MONOCYTES % (MANUAL) 7 % (3-13); NUCLEATED RED BLOOD CELLS 1 /100 WBC (0); SEGMENTED NEUTROPHILS % (MAN) 86 % (42-78); TOTAL CELLS COUNTED 100
[2020-03-18 05:11] LABS: ANISOCYTOSIS 3+; OVALOCYTES SLIGHT; PLATELET COMMENT ADEQUATE; POIKILOCYTOSIS SLIGHT
[2020-03-18] MEDS: HYDRALAZINE HCL INJ/PF 20 MG/1 ML SDV IV PRN ×2 (08:06→15:56)
--- NOTE | 2020-03-18 08:30 | PDOC CRITICAL CARE PROG REPORT ---
General Date:: 03/18/20 ICU Day:: 35 Ventilator Day:: 35 Hospital Day:: 39 Resuscitation Status: Full Code Events in the past 12 to 24 Hours:: Pulmonary support is less. 03/16 The patient remains on SBT. I have decreased PS from 12 to 6. the poatient still appears to have good TVs. Maintaining his 02 sat nicely. CXR shows persistent loower lobe densities though impropcved frpom several days ago. He is on 40% FI02. The patient remains profoundly weak. he ois opff all antimicrobials at this time. 03/17 The patient was placed on trach collar overnight and that is where he has remained. He is alert and appears to unndedrstand me when i speak with him. Respiratory stastus is stable. CXR shows bilaterl principally lower lobe infiltrates. Weight is down about 5 kg after yesterday's dailysis. The patient appears ready for placement at this time he has a rather severte critical illness polyneuropathy. 03/18 The patient is on the ventilator presently. he had been on about 40% FIO2. For some reason his o2 requirements increased overnight to 65% . Repeat CXR is pending. His 02 sat is hovering about 90%. Reason for ICU Addmission:: Acute respiratory distress and need for intubation. Now trached but still on the vent on fairly high support. Physical Exam Vital Signs: Temp Pulse Resp BP Pulse Ox 97.9 F 121 H 19 176/65 H 94 03/18/20 07:53 03/18/20 07:53 03/18/20 07:53 03/18/20 05:30 03/18/20 07:53 Pulse Oximeter Nocturnal Start: 02/08/20 13:55 Freq: RTQ4 Status: Complete Protocol: Document 02/09/20 04:00 LRO (Rec: 02/09/20 05:38 LRO [email or web address]) Nocturnal Pulse Oximetry Equipment Usage Equipment in Use Oxygen Delivery Method (includes room Room Air air) O2 Sat by Pulse Oximetry (92-100) 95 Continuous SpO2 Machine # 2 Pulse Oximeter Nocturnal Start: 02/10/20 11:39 Freq: RTQ4 Status: Complete Protocol: Document 02/11/20 04:06 PMU (Rec: 02/11/20 05:06 PMU [email or web address]) Nocturnal Pulse Oximetry Equipment Usage Equipment in Use Oxygen Delivery Method (includes room Room Air air) O2 Sat by Pulse Oximetry (92-100) 93 Continuous SpO2 Machine # N2 Intake & Output 03/17/20 03/18/20 03/19/20 06:59 06:59 06:59 Intake Total 448 Output Total 3834 100 0 Balance -3386 -100 0 Weight 114.8 kg 118.1 kg Weight/Height Weight 118.1 kg Height 5 ft 9 in General appearance: PRESENT: mild distress Head exam: PRESENT: atraumatic, normocephalic Eye exam: PRESENT: conjunctiva pink, PERRLA Mouth exam: PRESENT: moist Respiratory exam: ABSENT: accessory muscle use Cardiovascular exam: PRESENT: irregular rhythm, +S1, +S2, tachycardia Pulses: PRESENT: normal radial pulses GI/Abdominal exam: PRESENT: normal bowel sounds, soft. ABSENT: tenderness Gentrourinary exam: PRESENT: scrotal swelling Extremities exam: PRESENT: +2 edema. ABSENT: calf tenderness, joint swelling Musculoskeletal exam: PRESENT: full ROM Neurological exam: PRESENT: alert, awake - Responds to simple questions wityh a nod of his head. Skin exam: PRESENT: normal color Laboratory/Radiographs Laboratory Results: 03/18/20 04:00 03/18/20 04:00 03/17/20 03/18/20 03/18/20 06:11 04:00 04:00 WBC 14.0 H RBC 2.71 L Hgb 8.5 L Hct 26.2 L MCV 97 MCH 31.5 MCHC 32.6 RDW 21.0 H Plt Count 258 Seg Neutrophils % Not Reportable Sodium 132.7 L 131.7 L Potassium 3.9 4.1 Chloride 96 L 97 L Carbon Dioxide 24 23 Anion Gap 13 12 BUN 81 H 93 H Creatinine 2.32 H 2.90 H Est GFR ( Amer) 34 L 26 L Glucose 86 97 Calcium 8.4 8.0 L Total Bilirubin 0.9 AST 39 Alkaline Phosphatase 132 H Total Protein 5.1 L Albumin 2.7 L 02/08/20 02/08/20 02/21/20 09:49 13:11 04:50 Troponin I 0.160 0.155 NT-Pro-B Natriuret Pep 5540 H 89320 H 02/26/20 03/09/20 05:35 04:00 Troponin I NT-Pro-B Natriuret Pep 68864 H 22407 H Impressions: Hip/Pelvis X-Ray 02/08/20 00:00 IMPRESSION: No acute fracture. Severe degenerative changes of the left hip. Knee X-Ray 02/08/20 00:00 IMPRESSION: NEGATIVE STUDY OF THE RIGHT KNEE. NO RADIOGRAPHIC EVIDENCE OF ACUTE INJURY. Renal Ultrasound 02/21/20 00:00 IMPRESSION: Increased echogenicity of the renal parenchyma suggestive of underlying chronic medical renal disease. There is no hydronephrosis. There is a Ryan catheter within the urinary bladder. Head CT 03/08/20 08:56 IMPRESSION: MILD CHRONIC CHANGES OF ATROPHY AND MICROVASCULAR ISCHEMIA. NO ACUTE PROCESS. EVIDENCE OF ACUTE STROKE: NO. Chest CT 03/08/20 10:12 IMPRESSION: Extensive bilateral infiltrates. No pneumothorax. KUB X-Ray 03/10/20 00:00 IMPRESSION: Nonspecific bowel gas pattern. Esophagogastric tube tip and side- hole are within the stomach. Chest X-Ray 03/16/20 06:00 IMPRESSION: STABLE APPEARANCE OF THE CHEST. SUPPORT DEVICES UNCHANGED. Assessment and Plan - Diagnosis (1) Acute kidney injury superimposed on chronic kidney disease Is this a current diagnosis for this admission?: Yes Plan: Historical baseline creatinine appears to be 1.6-1.8 R03/16 The patient continues to remains fairly oliguric. despite his much lower creatinine The oatient is getting regualrly dialyzed tiw' 03/17 It is unlikely his kidneys will ever recover.Creatinine in the 2-3 range and and he has persistent oliguria. 03/18 the patient is getting dialyzed today. (2) Acute on chronic combined systolic (congestive) and diastolic (congestive) heart failure Is this a current diagnosis for this admission?: Yes (3) Acute respiratory failure due to COVID-19 Is this a current diagnosis for this admission?: Yes Plan: Seems to be improving today. Have gotten Fio2 to 40% and will now try PEEP to 5 and then rate. 03/18 His FI02 requirements are up. Repeat CXR pending. Was on trach collar all day yesterday. His COVID test as of 03/05 was positive, the clinical significance is unclear (4) Atrial fibrillation Qualifiers: Atrial fibrillation type: persistent (not longstanding) Qualified Code(s): I48.19 - Other persistent atrial fibrillation; I48.1 - Persistent atrial fibrillation Is this a current diagnosis for this admission?: Yes Plan: * * Rate control with metoprolol. Change 100 mg NG twice daily to 50 mg NG every 6 hours. Hold dose for hypotension or bradycardia. If additional rate control as needed, restart diltiazem. The patient is on digoxin daily as well presently. His heart rate is about 100- 110. 03/17 Heart rate generally controlled presently. The heart rate is generally < 100m or 11o. (5) COVID-19 virus infection Is this a current diagnosis for this admission?: Yes (6) Diabetes 1.5, managed as type 2 Is this a current diagnosis for this admission?: Yes Plan: The patient's blood sugares remain rather elevated. he has been getting a l;arge dose of decaron that we will be decreasiung. If need be we will addd some Levimir of Lantus. 02/18 lantus added to regimen 10 units and he remains on sliding scale. 02/20 lantus increased from 15 to 20 units as the blood sugar remains elevated. 03/18 His blood sugars appear well controlled presently. (7) Anemia Qualifiers: Anemia type: iron deficiency Is this a current diagnosis for this admission?: Yes Plan: The patient has a had a low grade anemia related largley to his CRF. He is getting supplemental Epogen at this time. H is actually down a tad since about 4 -5 days ago. nop overt signof gi bleed at this time. (8) Critical illness polyneuropathy Is this a current diagnosis for this admission?: Yes Plan: The patient remains profoundly weakk. Has been in bed chronically ll for over 1 month. At various times he has been on heavy sedation and has been cvonsistently on steroids. He does not appear able to move hsi extrmities against gravity at this time. Critical Time Critical Time (minutes): 35 Level of Care: ICU -: 1. The care of a critical patient is a dynamic process. This note is a phone representative synopsis but static in nature. The timeframe for treatments given in order is not necessarily the actual time these treatments may have been done. 2. This patient requires critical care secondary to ongoing requirements for therapy not offered or safe outside the critical care environment. Transfer to a lower level of care will result in altered life or limb morbidity and mortality. 3. Multidisciplinary rounds completed. 4. ABCDE bundle addressed.
--- NOTE | 2020-03-18 08:47 | RADIOLOGY REPORT (SQ) ---
EXAM DESCRIPTION: CHEST SINGLE VIEW IMAGES COMPLETED DATE/TIME: 03/18/2020 8:39 am REASON FOR STUDY: worsening hypoxemia COMPARISON: 03/16/2020 NUMBER OF VIEWS: One view. TECHNIQUE: Single frontal radiographic image of the chest acquired. LIMITATIONS: None. FINDINGS: LUNGS AND PLEURA: Stable appearance. MEDIASTINUM AND HILAR STRUCTURES: Stable heart size and mediastinal structures. HEART AND VASCULAR STRUCTURES: Stable appearance. SUPPORT DEVICES: Appropriate location without change. BONES: No acute findings. OTHER: No other significant finding. IMPRESSION: STABLE APPEARANCE OF THE CHEST. SUPPORT DEVICES UNCHANGED. TECHNICAL DOCUMENTATION: JOB ID: [id number] 2010 [employer]- All Rights Reserved Reading location - IP/workstation name: [email or web address]
[2020-03-18] MEDS ORDERED: DEXAMETHASONE 4 MG TABLET NG SCH (10:00)
[2020-03-18] MEDS: PANTOPRAZOLE SODIUM 40 MG VIAL IV SCH (11:34)
[2020-03-18] MEDS: APIXABAN 2.5 MG TABLET NG SCH ×2 (11:35→17:59)
[2020-03-18] MEDS: CHOLECALCIFEROL (D3) 1,000 UNIT (25 MCG) TABLET NG SCH ×3 (11:35→17:59)
[2020-03-18] MEDS: DIGOXIN INJ 0.5 MG/2 ML AMPULE IV SCH (11:35)
[2020-03-18] MEDS: LABETALOL HCL 200 MG TABLET NG SCH ×2 (11:35→21:54)
[2020-03-18] MEDS: AMINO AC/PROTEIN HYDR/WHEY PRO 11 GM/45 ML PKT NG SCH ×4 (11:35→21:55)
[2020-03-18] MEDS: INSULIN GLARGINE,HUM.REC.ANLOG 1,000 UNIT/10 ML VIAL SUBCUT SCH (11:36)
[2020-03-18] MEDS: FUROSEMIDE INJ/PF 40 MG/4 ML SDV IV SCH ×2 (11:36→21:53)
[2020-03-18] MEDS: CALCITRIOL 1 MCG/ML ORAL SOLN 15 ML NG SCH (11:44)
--- NOTE | 2020-03-18 12:40 | PDOC PROGRESS REPORT ---
Subjective Progress Note for:: 03/18/20 Reason For Visit: Patient remains in the ICU intubated but not sedated , currently undergoing dialysis without issues. He still hardly making any urine in spite of initiating IV diuresis. Dialysis orders were reviewed with treating dialysis nurse. Labs and medications were reviewed. Physical Exam Vital Signs: Temp Pulse Resp BP Pulse Ox 98.1 F 93 23 H 159/47 H 92 03/18/20 12:00 03/18/20 12:00 03/18/20 12:00 03/18/20 12:00 03/18/20 12:00 Pulse Oximeter Nocturnal Start: 02/08/20 13:55 Freq: RTQ4 Status: Complete Protocol: Document 02/09/20 04:00 LRO (Rec: 02/09/20 05:38 LRO [id number]) Nocturnal Pulse Oximetry Equipment Usage Equipment in Use Oxygen Delivery Method (includes room Room Air air) O2 Sat by Pulse Oximetry (92-100) 95 Continuous SpO2 Machine # 2 Pulse Oximeter Nocturnal Start: 02/10/20 11:39 Freq: RTQ4 Status: Complete Protocol: Document 02/11/20 04:06 PMU (Rec: 02/11/20 05:06 PMU [email or web address]) Nocturnal Pulse Oximetry Equipment Usage Equipment in Use Oxygen Delivery Method (includes room Room Air air) O2 Sat by Pulse Oximetry (92-100) 93 Continuous SpO2 Machine # N2 Intake & Output 03/17/20 03/18/20 03/19/20 06:59 06:59 06:59 Intake Total 448 Output Total 3834 100 3010 Balance -3386 -100 -3010 Weight 114.8 kg 118.1 kg Respiratory exam: PRESENT: clear to auscultation kevyn. ABSENT: crackles Cardiovascular exam: PRESENT: +S1, +S2 GI/Abdominal exam: PRESENT: normal bowel sounds, soft. ABSENT: organomegaly, tenderness Results Laboratory Results: 03/18/20 04:00 03/18/20 04:00 03/18/20 03/18/20 04:00 04:00 WBC 14.0 H RBC 2.71 L Hgb 8.5 L Hct 26.2 L MCV 97 MCH 31.5 MCHC 32.6 RDW 21.0 H Plt Count 258 Seg Neutrophils % Not Reportable Sodium 131.7 L Potassium 4.1 Chloride 97 L Carbon Dioxide 23 Anion Gap 12 BUN 93 H Creatinine 2.90 H Est GFR ( Amer) 26 L Glucose 97 Calcium 8.0 L 02/08/20 02/08/20 02/21/20 09:49 13:11 04:50 Troponin I 0.160 0.155 NT-Pro-B Natriuret Pep 5540 H 88995 H 02/26/20 03/09/20 05:35 04:00 Troponin I NT-Pro-B Natriuret Pep 79598 H 20088 H Impressions: Hip/Pelvis X-Ray 02/08/20 00:00 IMPRESSION: No acute fracture. Severe degenerative changes of the left hip. Knee X-Ray 02/08/20 00:00 IMPRESSION: NEGATIVE STUDY OF THE RIGHT KNEE. NO RADIOGRAPHIC EVIDENCE OF ACUTE INJURY. Renal Ultrasound 02/21/20 00:00 IMPRESSION: Increased echogenicity of the renal parenchyma suggestive of underlying chronic medical renal disease. There is no hydronephrosis. There is a Ryan catheter within the urinary bladder. Head CT 03/08/20 08:56 IMPRESSION: MILD CHRONIC CHANGES OF ATROPHY AND MICROVASCULAR ISCHEMIA. NO ACU TE PROCESS. EVIDENCE OF ACUTE STROKE: NO. Chest CT 03/08/20 10:12 IMPRESSION: Extensive bilateral infiltrates. No pneumothorax. KUB X-Ray 03/10/20 00:00 IMPRESSION: Nonspecific bowel gas pattern. Esophagogastric tube tip and side- hole are within the stomach. Chest X-Ray 03/18/20 00:00 IMPRESSION: STABLE APPEARANCE OF THE CHEST. SUPPORT DEVICES UNCHANGED. Assessment & Plan - Diagnosis (1) Acute kidney injury superimposed on chronic kidney disease Is this a current diagnosis for this admission?: Yes Plan: Acute on chronic kidney disease with patient having underlying baseline creatinine of around 1.7-2. Currently oligo-anuric. Initiated hemodialysis through a temporary catheter. Dialysis is ongoing. Plan to remove 3 L of fluid as tolerated. Discussed and reviewed dialysis orders with the treating dialysis nurse.This patient is third spacing quite a bit especially with his low albumin and therefore fluid extraction more than reason would be difficult.Given his overall status it looks like the patient is going to be on chronic dialysis for the next few months unless he makes a miraculous renal recovery. Plan for IJ PermCath placement. (2) Acute on chronic combined systolic (congestive) and diastolic (congestive) heart failure Is this a current diagnosis for this admission?: Yes Plan: Improved monitor and see response to gentle dialysis. (3) Acute respiratory failure due to COVID-19 Is this a current diagnosis for this admission?: Yes Plan: Remains intubated and less sedated. Now status post tracheostomy. Being managed by news intern. Monitor. (4) Hypocalcemia Is this a current diagnosis for this admission?: Yes Plan: Stable. Monitor. (5) Metabolic acidosis Is this a current diagnosis for this admission?: Yes Plan: Stable on HD.Will DC p.o. replacements (6) Atrial fibrillation Qualifiers: Atrial fibrillation type: persistent (not longstanding) Qualified Code(s): I48.19 - Other persistent atrial fibrillation; I48.1 - Persistent atrial fibrillation Is this a current diagnosis for this admission?: Yes Plan: Currently rate controlled. Monitor. (7) COVID-19 virus infection Is this a current diagnosis for this admission?: Yes Plan: As per news intern.His last serology for COVID 19 was done on 03/05 and was persistently positive. (8) Anemia Qualifiers: Anemia type: iron deficiency Is this a current diagnosis for this admission?: Yes Plan: .Patient has received multiple blood transfusions. Started erythropoietin. Monitor. (9) Hyponatremia Is this a current diagnosis for this admission?: Yes Plan: See response to fluid removal. Monitor. (10) Abnormal LFTs Is this a current diagnosis for this admission?: Yes Plan: Persistently abnormal LFTs concerning. He is over his septic stage and therefore would recommend imaging studies/ultrasound to delineate any possible underlying liver disease.
[2020-03-19] MEDS: INSULIN LISPRO 100 UNIT/ML 3 ML VIAL SUBCUT SCH ×4 (00:38→17:08)
[2020-03-19] MEDS: LEVALBUTEROL HCL NEB 1.25 MG/3 ML AMPUL NEB SCH ×4 (02:17→20:07)
[2020-03-19] MEDS: HYDRALAZINE HCL INJ/PF 20 MG/1 ML SDV IV PRN (02:39)
[2020-03-19] MEDS ORDERED: DEXAMETHASONE 4 MG TABLET PO ONE (08:14)
--- NOTE | 2020-03-19 08:32 | PDOC CRITICAL CARE PROG REPORT ---
General Date:: 03/19/20 ICU Day:: 36 Ventilator Day:: 36 Hospital Day:: 40 Resuscitation Status: Full Code Events in the past 12 to 24 Hours:: Pulmonary support is less. 03/16 The patient remains on SBT. I have decreased PS from 12 to 6. the poatient still appears to have good TVs. Maintaining his 02 sat nicely. CXR shows persistent loower lobe densities though impropcved frpom several days ago. He is on 40% FI02. The patient remains profoundly weak. he is off all antimicrobials at this time. 03/17 The patient was placed on trach collar overnight and that is where he has remained. He is alert and appears to unndedrstand me when i speak with him. Respiratory status is stable. CXR shows bilateral principally lower lobe infiltrates. Weight is down about 5 kg after yesterday's dialysis. The patient appears ready for placement at this time he has a rather severe critical illness polyneuropathy. 03/18 The patient is on the ventilator presently. he had been on about 40% FIO2. For some reason his o2 requirements increased overnight to 65% . Repeat CXR is pending. His 02 sat is hovering about 90%. 03/19 The patient s awake. He appears relatively comfortable. He is back on an FI02 of 45%. Will talk to a surgeon about his decubitus and need for a tunnelled catheter. The patient will need placement in an LTACH. Reason for ICU Addmission:: Acute respiratory distress and need for intubation. Now trached but still on the vent on fairly high support. Physical Exam Vital Signs: Temp Pulse Resp BP Pulse Ox 98.2 F 94 21 H 166/53 H 93 03/18/20 16:00 03/19/20 02:17 03/19/20 06:11 03/19/20 06:11 03/19/20 06:11 Pulse Oximeter Nocturnal Start: 02/08/20 13:55 Freq: RTQ4 Status: Complete Protocol: Document 02/09/20 04:00 LRO (Rec: 02/09/20 05:38 LRO [id number]) Nocturnal Pulse Oximetry Equipment Usage Equipment in Use Oxygen Delivery Method (includes room Room Air air) O2 Sat by Pulse Oximetry (92-100) 95 Continuous SpO2 Machine # 2 Pulse Oximeter Nocturnal Start: 02/10/20 11:39 Freq: RTQ4 Status: Complete Protocol: Document 02/11/20 04:06 PMU (Rec: 02/11/20 05:06 PMU [email or web address]) Nocturnal Pulse Oximetry Equipment Usage Equipment in Use Oxygen Delivery Method (includes room Room Air air) O2 Sat by Pulse Oximetry (92-100) 93 Continuous SpO2 Machine # N2 Intake & Output 03/18/20 03/19/20 03/20/20 06:59 06:59 06:59 Intake Total 1020 Output Total 100 3122 Balance -100 -2102 Weight 118.1 kg 115.5 kg Weight/Height Weight 115.5 kg Height 5 ft 9 in General appearance: PRESENT: no acute distress, morbidly obese Head exam: PRESENT: atraumatic, normocephalic Eye exam: PRESENT: conjunctiva pink Ear exam: PRESENT: normal external ear exam Respiratory exam: PRESENT: unlabored Pulses: PRESENT: normal dorsalis pedis pul GI/Abdominal exam: PRESENT: soft. ABSENT: tenderness Rectal exam: PRESENT: deferred Extremities exam: PRESENT: +2 edema - edema in scotal areas and arms principally. ABSENT: calf tenderness, joint swelling Musculoskeletal exam: PRESENT: normal inspection Laboratory/Radiographs Laboratory Results: 03/18/20 04:00 03/18/20 04:00 02/08/20 02/08/20 02/21/20 09:49 13:11 04:50 Troponin I 0.160 0.155 NT-Pro-B Natriuret Pep 5540 H 89714 H 02/26/20 03/09/20 05:35 04:00 Troponin I NT-Pro-B Natriuret Pep 65350 H 92776 H Impressions: Hip/Pelvis X-Ray 02/08/20 00:00 IMPRESSION: No acute fracture. Severe degenerative changes of the left hip. Knee X-Ray 02/08/20 00:00 IMPRESSION: NEGATIVE STUDY OF THE RIGHT KNEE. NO RADIOGRAPHIC EVIDENCE OF ACUTE INJURY. Renal Ultrasound 02/21/20 00:00 IMPRESSION: Increased echogenicity of the renal parenchyma suggestive of underlying chronic medical renal disease. There is no hydronephrosis. There is a Ryan catheter within the urinary bladder. Head CT 03/08/20 08:56 IMPRESSION: MILD CHRONIC CHANGES OF ATROPHY AND MICROVASCULAR ISCHEMIA. NO ACUTE PROCESS. EVIDENCE OF ACUTE STROKE: NO. Chest CT 03/08/20 10:12 IMPRESSION: Extensive bilateral infiltrates. No pneumothorax. KUB X-Ray 03/10/20 00:00 IMPRESSION: Nonspecific bowel gas pattern. Esophagogastric tube tip and side-hole are within the stomach. Chest X-Ray 03/18/20 00:00 IMPRESSION: STABLE APPEARANCE OF THE CHEST. SUPPORT DEVICES UNCHANGED. Assessment and Plan - Diagnosis (1) Acute kidney injury superimposed on chronic kidney disease Is this a current diagnosis for this admission?: Yes Plan: Historical baseline creatinine appears to be 1.6-1.8 R03/16 The patient continues to remains fairly oliguric. despite his much lower creatinine The oatient is getting regualrly dialyzed tiw' 03/17 It is unlikely his kidneys will ever recover.Creatinine in the 2-3 range and and he has persistent oliguria. 03/18 the patient is getting dialyzed today 03/19 No change (2) Acute on chronic combined systolic (congestive) and diastolic (congestive) heart failure Is this a current diagnosis for this admission?: Yes Plan: Patient continues to appear euvolemic clinically 03/16 The patient is on dialysis. His edema appears to be a little better than it was a few weeks ago. His weight is actually up however, the past several days. His weight was 115.5 on 03/12 and is now about 120 kg. perhaps we can be a little more aggressive about getting fluid off at dialysis. 03/17 The patient has a long hsitory of systolic dysfn. He was a wearing a lifevest at one time His weight is down after his lasrt dialysis. No change in02 needs latewly Little change in radiolgical appearance. 03/19 Weight is stable. CXR unchanged. BP is a bit high. I added Hydralazine po to regimen. (3) Acute respiratory failure due to COVID-19 Is this a current diagnosis for this admission?: Yes Plan: Seems to be improving today. Have gotten Fio2 to 40% and will now try PEEP to 5 and then rate. 03/18 His FI02 requirements are up. Repeat CXR pending. Was on trach collar all day yesterday. His COVID test as of 03/05 was positive, the clinical significance is unclear 03/19 was on the ventilator yesterday on CPAP. He remains on CPAP on pS of 10. FI02 rewquirments are back down. (4) Atrial fibrillation Qualifiers: Atrial fibrillation type: persistent (not longstanding) Qualified Code(s): I48.19 - Other persistent atrial fibrillation; I48.1 - Persistent atrial fibrillation Is this a current diagnosis for this admission?: Yes Plan: * * Rate control with metoprolol. Change 100 mg NG twice daily to 50 mg NG every 6 hours. Hold dose for hypotension or bradycardia. If additional rate control as needed, restart diltiazem. The patient is on digoxin daily as well presently. His heart rate is about 100- 110. 03/17 Heart rate generally controlled presently. The heart rate is generally < 100m or 11o. (5) COVID-19 virus infection Is this a current diagnosis for this admission?: Yes (6) Diabetes 1.5, managed as type 2 Is this a current diagnosis for this admission?: Yes Plan: The patient's blood sugares remain rather elevated. he has been getting a l;arge dose of decaron that we will be decreasiung. If need be we will addd some Levimir of Lantus. 02/18 lantus added to regimen 10 units and he remains on sliding scale. 02/20 lantus increased from 15 to 20 units as the blood sugar remains elevated. 03/18 His blood sugars appear well controlled presently. (7) Anemia Qualifiers: Anemia type: iron deficiency Is this a current diagnosis for this admission?: Yes Plan: The patient has a had a low grade anemia related largley to his CRF. He is getting supplemental Epogen at this time. H is actually down a tad since about 4 -5 days ago. nop overt signof gi bleed at this time. (8) Critical illness polyneuropathy Is this a current diagnosis for this admission?: Yes Plan: The patient remains profoundly weakk. Has been in bed chronically ll for over 1 month. At various times he has been on heavy sedation and has been cvonsistently on steroids. He does not appear able to move hsi extrmities against gravity at this time. (9) Sacral decubitus ulcer Is this a current diagnosis for this admission?: Yes Plan: Patient has a large sacral decubitus. Will ask surgery to see patient. (10) HTN (hypertension) Qualifiers: Hypertension type: essential hypertension Qualified Code(s): I10 - Essential (primary) hypertension Is this a current diagnosis for this admission?: Yes Plan: Pt is still on Cardene will swith metoprolol to labetolol and try to discontinue Cardene. 03/19 The patient is onlabetalol. I added po hydralazine to regimen. Critical Time Critical Time (minutes): 25 Level of Care: ICU -: 1. The care of a critical patient is a dynamic process. This note is a customer response representative synopsis but static in nature. The timeframe for treatments given in order is not necessarily the actual time these treatments may have been done. 2. This patient requires critical care secondary to ongoing requirements for therapy not offered or safe outside the critical care environment. Transfer to a lower level of care will result in altered life or limb morbidity and mortality. 3. Multidisciplinary rounds completed. 4. ABCDE bundle addressed.
[2020-03-19] MEDS: CHOLECALCIFEROL (D3) 1,000 UNIT (25 MCG) TABLET NG SCH ×3 (09:11→17:08)
[2020-03-19] MEDS: FUROSEMIDE INJ/PF 40 MG/4 ML SDV IV SCH ×2 (09:12→22:50)
[2020-03-19] MEDS: AMINO AC/PROTEIN HYDR/WHEY PRO 11 GM/45 ML PKT NG SCH ×4 (09:12→22:51)
[2020-03-19] MEDS: LABETALOL HCL 200 MG TABLET NG SCH ×2 (09:12→22:49)
[2020-03-19] MEDS: PANTOPRAZOLE SODIUM 40 MG VIAL IV SCH (09:12)
[2020-03-19] MEDS: APIXABAN 2.5 MG TABLET NG SCH ×2 (09:12→17:08)
[2020-03-19] MEDS: HYDRALAZINE HCL 25 MG TABLET PO SCH ×2 (09:12→22:49)
[2020-03-19] MEDS: DIGOXIN INJ 0.5 MG/2 ML AMPULE IV SCH (09:13)
[2020-03-19] MEDS: CALCITRIOL 1 MCG/ML ORAL SOLN 15 ML NG SCH (09:23)
[2020-03-19] MEDS: INSULIN GLARGINE,HUM.REC.ANLOG 1,000 UNIT/10 ML VIAL SUBCUT SCH (09:36)
--- NOTE | 2020-03-19 15:53 | PDOC CONSULTATION ---
Consultation Consult Date: 03/19/20 Provider Consulted: DERICK RENTERIA Consult reason:: Evaluate decubitus ulcer History of Present Illness Admission Date/PCP: 02/08/20 13:52 [facility] History of Present Illness: INES TURNER JR is a 69 year old male currently in the hospital with COVID-19 with respiratory failure and renal failure, currently on ventilator as well as hemodialysis. Patient has a large sacral decubitus ulcer. According to his nurse this decubitus ulcer has been present since he has been admitted to the ICU. no purulent drainage. Surgicalist being consulted for decubitus ulcer management as well as PermCath placement. Patient currently is being dialyzed via a Vas-Cath. Past Medical History Cardiac Medical History: Reports: Congestive Heart Failure, Coronary Artery Disease, Hypertension Denies: Atrial Fibrillation, DVT, Myocardial Infarction, Hyperlipidema, Pulmonary Embolism Pulmonary Medical History: Reports: Respiratory Failure, Sleep Apnea Denies: Asthma, Bronchitis, Chronic Obstructive Pulmonary Disease (COPD), Pneumonia Neurological Medical History: Denies: Seizures Endocrine Medical History: Denies: Diabetes Mellitus Type 1, Diabetes Mellitus Type 2, Hyperthyroidism, Hypothyroidism GI Medical History: Denies: Cirrhosis, Crohn's Disease, Gastroesophageal Reflux Disease, Hepatitis, Ulcerative Colitis Musculoskeltal Medical History: Denies: Arthritis, Gout Skin Medical History: Denies: Eczema, Psoriasis Psychiatric Medical History: Denies: Depression Hematology: Denies: Anemia, Bleeding Tendencies Past Surgical History Past Surgical History: Reports: Cardiac Catheterization, Coronary Artery Bypass Graft Social History Smoking Status: Former Smoker Last Time Smoked: 1999 Frequency of Alcohol Use: None Hx Recreational Drug Use: No Drugs: None Hx Prescription Drug Abuse: No - Advance Directive Resuscitation Status: Full Code Family History Family History: DM, Hypertension. denies: CAD, Malignancy Parental Family History Reviewed: No Children Family History Reviewed: No Sibling(s) Family History Reviewed.: No Medication/Allergy Home Medications: Aspirin [Aspirin 81 mg Chewable Tablet] 81 mg PO DAILY 01/29/20 Clopidogrel Bisulfate [Plavix 75 mg Tablet] 75 mg PO DAILY #30 tablet 02/03/20 Metoprolol Succinate [Toprol Xl 50 mg Tab.sr] 50 mg PO DAILY #30 tab.sr.24h 02/03/20 Sacubitril/Valsartan [Entresto 49 mg/51 mg Tablet] 1 tab PO Q12 #60 tablet 02/03/20 Allergies/Adverse Reactions: No Known Allergies Allergy (Verified 02/08/20 10:21) Physical Exam Vital Signs: Temp Pulse Resp BP Pulse Ox 98.2 F 84 22 H 136/54 H 95 03/18/20 16:00 03/19/20 08:22 03/19/20 10:00 03/19/20 09:31 03/19/20 12:00 Pulse Oximeter Nocturnal Start: 02/08/20 13:55 Freq: RTQ4 Status: Complete Protocol: Document 02/09/20 04:00 LRO (Rec: 02/09/20 05:38 LRO [id number]) Nocturnal Pulse Oximetry Equipment Usage Equipment in Use Oxygen Delivery Method (includes room Room Air air) O2 Sat by Pulse Oximetry (92-100) 95 Continuous SpO2 Machine # 2 Pulse Oximeter Nocturnal Start: 02/10/20 11:39 Freq: RTQ4 Status: Complete Protocol: Document 02/11/20 04:06 PMU (Rec: 02/11/20 05:06 PMU [email or web address]) Nocturnal Pulse Oximetry Equipment Usage Equipment in Use Oxygen Delivery Method (includes room Room Air air) O2 Sat by Pulse Oximetry (92-100) 93 Continuous SpO2 Machine # N2 Intake & Output 03/18/20 03/19/20 03/20/20 06:59 06:59 06:59 Intake Total 1020 180 Output Total 100 3122 Balance -100 -2102 180 Weight 118.1 kg 115.5 kg 115.5 kg General appearance: PRESENT: no acute distress - Trach in place on ventilator., other - On ventilator via tracheostomy. Respiratory exam: PRESENT: rhonchi Cardiovascular exam: PRESENT: irregular rhythm GI/Abdominal exam: PRESENT: other - Soft, nondistended, nontender to palpation. Currently being fed via NG tube. Skin exam: PRESENT: other - At the sacral region and approximately 14 x 14 cm area of hard, completely black eschar with no surrounding erythema and no underlying fluctuance and no drainage. Results Laboratory Results: 03/18/20 04:00 03/18/20 04:00 02/08/20 02/08/20 02/21/20 09:49 13:11 04:50 Troponin I 0.160 0.155 NT-Pro-B Natriuret Pep 5540 H 67863 H 02/26/20 03/09/20 05:35 04:00 Troponin I NT-Pro-B Natriuret Pep 43750 H 27878 H Impressions: Hip/Pelvis X-Ray 02/08/20 00:00 IMPRESSION: No acute fracture. Severe degenerative changes of the left hip. Knee X-Ray 02/08/20 00:00 IMPRESSION: NEGATIVE STUDY OF THE RIGHT KNEE. NO RADIOGRAPHIC EVIDENCE OF ACUTE INJURY. Renal Ultrasound 02/21/20 00:00 IMPRESSION: Increased echogenicity of the renal parenchyma suggestive of underlying chronic medical renal disease. There is no hydronephrosis. There is a Ryan catheter within the urinary bladder. Head CT 03/08/20 08:56 IMPRESSION: MILD CHRONIC CHANGES OF ATROPHY AND MICROVASCULAR ISCHEMIA. NO ACUTE PROCESS. EVIDENCE OF ACUTE STROKE: NO. Chest CT 03/08/20 10:12 IMPRESSION: Extensive bilateral infiltrates. No pneumothorax. KUB X-Ray 03/10/20 00:00 IMPRESSION: Nonspecific bowel gas pattern. Esophagogastric tube tip and side- hole are within the stomach. Chest X-Ray 03/18/20 00:00 IMPRESSION: STABLE APPEARANCE OF THE CHEST. SUPPORT DEVICES UNCHANGED. Assessment & Plan - Diagnosis (1) Renal failure Is this a current diagnosis for this admission?: Yes Plan: Currently requiring dialysis. Nephrology request PermCath placement. Will place PermCath near the end of his ICU hospitalization to minimize seeding the PermCath. He currently has a Vas-Cath that can be utilized until then. (2) Sacral decubitus ulcer Is this a current diagnosis for this admission?: Yes Plan: Large area of black eschar at the sacral region we will plan excisional debridement in the intensive care unit since he is COVID positive. We will hold his tube feeds at midnight. I have discussed with the patient's the risk and benefits of the procedure including risk of bleeding, poor wound healing, infection. She understands that he may need additional surgical interventions to heal this decubitus ulcer. She agrees to proceed with surgery tomorrow with Dr. Talley.
[2020-03-20] MEDS: INSULIN LISPRO 100 UNIT/ML 3 ML VIAL SUBCUT SCH ×4 (01:03→18:54)
[2020-03-20] MEDS: LEVALBUTEROL HCL NEB 1.25 MG/3 ML AMPUL NEB SCH ×4 (02:12→20:34)
--- NOTE | 2020-03-20 04:31 | PDOC PROGRESS REPORT ---
Subjective Reason For Visit: WEAKNESS,ELEVATED TROPONIN,CHF Physical Exam Vital Signs: Temp Pulse Resp BP Pulse Ox 98.2 F 90 19 146/42 H 96 03/18/20 16:00 03/20/20 02:12 03/20/20 04:00 03/20/20 03:32 03/20/20 04:10 Pulse Oximeter Nocturnal Start: 02/08/20 13:55 Freq: RTQ4 Status: Complete Protocol: Document 02/09/20 04:00 LRO (Rec: 02/09/20 05:38 LRO [id number]) Nocturnal Pulse Oximetry Equipment Usage Equipment in Use Oxygen Delivery Method (includes room Room Air air) O2 Sat by Pulse Oximetry (92-100) 95 Continuous SpO2 Machine # 2 Pulse Oximeter Nocturnal Start: 02/10/20 11:39 Freq: RTQ4 Status: Complete Protocol: Document 02/11/20 04:06 PMU (Rec: 02/11/20 05:06 PMU [email or web address]) Nocturnal Pulse Oximetry Equipment Usage Equipment in Use Oxygen Delivery Method (includes room Room Air air) O2 Sat by Pulse Oximetry (92-100) 93 Continuous SpO2 Machine # N2 Intake & Output 03/18/20 03/19/20 03/20/20 06:59 06:59 06:59 Intake Total 1020 750 Output Total 100 3122 170 Balance -100 -2102 580 Weight 118.1 kg 115.5 kg 115.5 kg Results Laboratory Results: 03/18/20 04:00 03/18/20 04:00 02/08/20 02/08/20 02/21/20 09:49 13:11 04:50 Troponin I 0.160 0.155 NT-Pro-B Natriuret Pep 5540 H 88506 H 02/26/20 03/09/20 05:35 04:00 Troponin I NT-Pro-B Natriuret Pep 72460 H 38442 H Impressions: Hip/Pelvis X-Ray 02/08/20 00:00 IMPRESSION: No acute fracture. Severe degenerative changes of the left hip. Knee X-Ray 02/08/20 00:00 IMPRESSION: NEGATIVE STUDY OF THE RIGHT KNEE. NO RADIOGRAPHIC EVIDENCE OF ACUTE INJURY. Renal Ultrasound 02/21/20 00:00 IMPRESSION: Increased echogenicity of the renal parenchyma suggestive of underlying chronic medical renal disease. There is no hydronephrosis. There is a Ryan catheter within the urinary bladder. Head CT 03/08/20 08:56 IMPRESSION: MILD CHRONIC CHANGES OF ATROPHY AND MICROVASCULAR ISCHEMIA. NO ACUTE PROCESS. EVIDENCE OF ACUTE STROKE: NO. Chest CT 03/08/20 10:12 IMPRESSION: Extensive bilateral infiltrates. No pneumothorax. KUB X-Ray 03/10/20 00:00 IMPRESSION: Nonspecific bowel gas pattern. Esophagogastric tube tip and side- hole are within the stomach. Chest X-Ray 03/18/20 00:00 IMPRESSION: STABLE APPEARANCE OF THE CHEST. SUPPORT DEVICES UNCHANGED. Assessment & Plan - Diagnosis (1) Renal failure Is this a current diagnosis for this admission?: Yes (2) Sacral decubitus ulcer Is this a current diagnosis for this admission?: Yes Plan: Scheduled for decubitus ulcer debridement later today but patient is on Eliquis. Will need to discuss with primary team about stoppage of Eliquis for couple of days prior to debridement. May postpone debridement for a couple of days. The decubitus is a full-thickness longstanding eschar without surrounding erythema and can wait a couple of days if need be. Will discuss with Dr. Talley the oncoming surgeon. - Time Anticipated Discharge Disposition: Unknown Anticipated Discharge Timeframe: Unknown
[2020-03-20] MEDS ORDERED: EPOETIN ALFA-EPBX 2,000 UNIT, EPOETIN ALFA-EPBX 3,000 UNIT, EPOETIN ALFA-EPBX 20,000 UN... IV PRN ×4 (05:00)
[2020-03-20] MEDS ORDERED: HEPARIN SOD (PORCINE) 1,000 UNIT/ML 10 ML VIAL IV PRN (05:00)
[2020-03-20 06:24] LABS: HEMATOCRIT 27.5 % (37.9-51.0); MEAN CORPUSCULAR HEMOGLOBIN 31.1 pg (27.0-33.4); MEAN CORPUSCULAR HGB CONC 32.5 g/dL (32.0-36.0); MEAN CORPUSCULAR VOLUME 96 fl (80-97); PLATELET COUNT 292 10^3/uL (150-450); RED BLOOD COUNT 2.88 10^6/uL (4.35-5.55); RED CELL DISTRIBUTION WIDTH 21.1 % (11.5-14.0); WHITE BLOOD COUNT 11.7 10^3/uL (4.0-10.5)
[2020-03-20 06:49] LABS: ABSOLUTE LYMPHOCYTES# (MANUAL) 0.1 10^3/uL (0.5-4.7); ABSOLUTE MONOCYTES # (MANUAL) 0.6 10^3/uL (0.1-1.4); BAND NEUTROPHILS % (MANUAL) 2 % (3-5); BASOPHILS % (MANUAL) 0 % (0-2); EOSINOPHILS % (MANUAL) 0 % (0-6); LYMPHOCYTES % (MANUAL) 1 % (13-45); MONOCYTES % (MANUAL) 5 % (3-13); SEGMENTED NEUTROPHILS % (MAN) 92 % (42-78); TOTAL CELLS COUNTED 100
[2020-03-20 06:50] LABS: ANISOCYTOSIS 3+; PLATELET COMMENT ADEQUATE; POIKILOCYTOSIS 1+; POLYCHROMASIA 1+; TARGET CELLS 1+; TOXIC GRANULATION 1+; TOXIC VACUOLATION PRESENT
[2020-03-20 07:26] LABS: ANION GAP 14 (5-19); BLOOD UREA NITROGEN 92 mg/dL (7-20); CALCIUM 7.6 mg/dL (8.4-10.2); CARBON DIOXIDE 22 mmol/L (22-30); CHLORIDE 97 mmol/L (98-107); GLUCOSE 74 mg/dL (75-110); POTASSIUM 3.8 mmol/L (3.6-5.0)
[2020-03-20] MEDS: FUROSEMIDE INJ/PF 40 MG/4 ML SDV IV SCH ×2 (09:20→22:30)
[2020-03-20] MEDS: PANTOPRAZOLE SODIUM 40 MG VIAL IV SCH (09:20)
[2020-03-20] MEDS: INSULIN GLARGINE,HUM.REC.ANLOG 1,000 UNIT/10 ML VIAL SUBCUT SCH (09:20)
[2020-03-20] MEDS: DIGOXIN INJ 0.5 MG/2 ML AMPULE IV SCH (09:20)
[2020-03-20] MEDS: APIXABAN 2.5 MG TABLET NG SCH (09:22)
[2020-03-20] MEDS: HYDRALAZINE HCL 25 MG TABLET PO SCH ×2 (09:22→22:31)
[2020-03-20] MEDS: AMINO AC/PROTEIN HYDR/WHEY PRO 11 GM/45 ML PKT NG SCH ×4 (09:22→22:31)
[2020-03-20] MEDS: CHOLECALCIFEROL (D3) 1,000 UNIT (25 MCG) TABLET NG SCH ×3 (09:23→18:54)
[2020-03-20] MEDS: CALCITRIOL 1 MCG/ML ORAL SOLN 15 ML NG SCH (09:23)
[2020-03-20] MEDS: LABETALOL HCL 200 MG TABLET NG SCH ×2 (09:23→22:31)
--- NOTE | 2020-03-20 11:19 | PDOC CRITICAL CARE PROG REPORT ---
General Date:: 03/20/20 ICU Day:: 37 Ventilator Day:: 37 Hospital Day:: 41 Resuscitation Status: Full Code Events in the past 12 to 24 Hours:: Pulmonary support is less. 03/16 The patient remains on SBT. I have decreased PS from 12 to 6. the poatient still appears to have good TVs. Maintaining his 02 sat nicely. CXR shows persistent loower lobe densities though impropcved frpom several days ago. He is on 40% FI02. The patient remains profoundly weak. he is off all antimicrobials at this time. 03/17 The patient was placed on trach collar overnight and that is where he has remained. He is alert and appears to unndedrstand me when i speak with him. Respiratory status is stable. CXR shows bilateral principally lower lobe infiltrates. Weight is down about 5 kg after yesterday's dialysis. The patient appears ready for placement at this time he has a rather severe critical illness polyneuropathy. 03/18 The patient is on the ventilator presently. he had been on about 40% FIO2. For some reason his o2 requirements increased overnight to 65% . Repeat CXR is pending. His 02 sat is hovering about 90%. 03/19 The patient s awake. He appears relatively comfortable. He is back on an FI02 of 45%. Will talk to a surgeon about his decubitus and need for a tunnelled catheter. The patient will need placement in an LTACH. 03/20 the patient looks abut the same. I discussed need for longterm dialysis catheter or fistula. the patient was to have sacral debridement today biut it hasa been put onhold a s thepatient has b een on Eliquis. He gita SBT with PS of 10 and tolerates it well. Little change otherwise. The patient may go to [facility] in the next several days. Reason for ICU Addmission:: Acute respiratory distress and need for intubation. Now trached but still on the vent on fairly high support. Physical Exam Vital Signs: Temp Pulse Resp BP Pulse Ox 98.2 F 98 15 135/49 H 98 03/18/20 16:00 03/20/20 08:08 03/20/20 11:00 03/20/20 10:31 03/20/20 11:00 Pulse Oximeter Nocturnal Start: 02/08/20 13:55 Freq: RTQ4 Status: Complete Protocol: Document 02/09/20 04:00 LRO (Rec: 02/09/20 05:38 LRO [email or web address]) Nocturnal Pulse Oximetry Equipment Usage Equipment in Use Oxygen Delivery Method (includes room Room Air air) O2 Sat by Pulse Oximetry (92-100) 95 Continuous SpO2 Machine # 2 Pulse Oximeter Nocturnal Start: 02/10/20 11:39 Freq: RTQ4 Status: Complete Protocol: Document 02/11/20 04:06 PMU (Rec: 02/11/20 05:06 PMU [email or web address]) Nocturnal Pulse Oximetry Equipment Usage Equipment in Use Oxygen Delivery Method (includes room Room Air air) O2 Sat by Pulse Oximetry (92-100) 93 Continuous SpO2 Machine # N2 Intake & Output 03/19/20 03/20/20 03/21/20 06:59 06:59 06:59 Intake Total 7336 892 3527 Output Total 3122 190 4441 Balance -2102 560 -3441 Weight 115.5 kg 113.7 kg Weight/Height Weight 113.7 kg Height 5 ft 9 in General appearance: PRESENT: mild distress, morbidly obese Head exam: PRESENT: normocephalic, other Ear exam: PRESENT: normal external ear exam Neck exam: PRESENT: tracheostomy. ABSENT: thyromegaly, tracheal deviation Respiratory exam: ABSENT: accessory muscle use, rales Cardiovascular exam: PRESENT: irregular rhythm, +S1, +S2 GI/Abdominal exam: PRESENT: distended, soft. ABSENT: tenderness Rectal exam: PRESENT: deferred Neurological exam: PRESENT: alert, awake Psychiatric exam: PRESENT: flat affect Skin exam: PRESENT: normal color Tubes/Lines: PRESENT: Nasogastic Tube Laboratory/Radiographs Laboratory Results: 03/20/20 06:10 03/20/20 06:10 03/20/20 03/20/20 06:10 06:10 WBC 11.7 H RBC 2.88 L Hgb 9.0 L Hct 27.5 L MCV 96 MCH 31.1 MCHC 32.5 RDW 21.1 H Plt Count 292 Seg Neutrophils % Not Reportable Sodium 132.9 L Potassium 3.8 Chloride 97 L Carbon Dioxide 22 Anion Gap 14 BUN 92 H Creatinine 2.65 H Est GFR ( Amer) 29 L Glucose 74 L Calcium 7.6 L 02/08/20 02/08/20 02/21/20 09:49 13:11 04:50 Troponin I 0.160 0.155 NT-Pro-B Natriuret Pep 5540 H 05363 H 02/26/20 03/09/20 03/20/20 05:35 04:00 06:10 Troponin I NT-Pro-B Natriuret Pep 66697 H 90464 H 17153 H Impressions: Hip/Pelvis X-Ray 02/08/20 00:00 IMPRESSION: No acute fracture. Severe degenerative changes of the left hip. Knee X-Ray 02/08/20 00:00 IMPRESSION: NEGATIVE STUDY OF THE RIGHT KNEE. NO RADIOGRAPHIC EVIDENCE OF ACUTE INJURY. Renal Ultrasound 02/21/20 00:00 IMPRESSION: Increased echogenicity of the renal parenchyma suggestive of underlying chronic medical renal disease. There is no hydronephrosis. There is a Ryan catheter within the urinary bladder. Head CT 03/08/20 08:56 IMPRESSION: MILD CHRONIC CHANGES OF ATROPHY AND MICROVASCULAR ISCHEMIA. NO ACUTE PROCESS. EVIDENCE OF ACUTE STROKE: NO. Chest CT 03/08/20 10:12 IMPRESSION: Extensive bilateral infiltrates. No pneumothorax. KUB X-Ray 03/10/20 00:00 IMPRESSION: Nonspecific bowel gas pattern. Esophagogastric tube tip and side- hole are within the stomach. Chest X-Ray 03/18/20 00:00 IMPRESSION: STABLE APPEARANCE OF THE CHEST. SUPPORT DEVICES UNCHANGED. Assessment and Plan - Diagnosis (1) Acute kidney injury superimposed on chronic kidney disease Is this a current diagnosis for this admission?: Yes (2) Acute on chronic combined systolic (congestive) and diastolic (congestive) heart failure Is this a current diagnosis for this admission?: Yes (3) Acute respiratory failure due to COVID-19 Is this a current diagnosis for this admission?: Yes (4) Atrial fibrillation Qualifiers: Atrial fibrillation type: persistent (not longstanding) Qualified Code(s): I48.19 - Other persistent atrial fibrillation; I48.1 - Persistent atrial fibrillation Is this a current diagnosis for this admission?: Yes (5) COVID-19 virus infection Is this a current diagnosis for this admission?: Yes (6) Diabetes 1.5, managed as type 2 Is this a current diagnosis for this admission?: Yes (7) Anemia Qualifiers: Anemia type: iron deficiency Is this a current diagnosis for this admission?: Yes (8) Critical illness polyneuropathy Is this a current diagnosis for this admission?: Yes (9) Sacral decubitus ulcer Is this a current diagnosis for this admission?: Yes (10) HTN (hypertension) Qualifiers: Hypertension type: essential hypertension Qualified Code(s): I10 - Essential (primary) hypertension Is this a current diagnosis for this admission?: Yes Critical Time Critical Time (minutes): 25 Level of Care: ICU -: 1. The care of a critical patient is a dynamic process. This note is a sales representative printing synopsis but static in nature. The timeframe for treatments given in order is not necessarily the actual time these treatments may have been done. 2. This patient requires critical care secondary to ongoing requirements for therapy not offered or safe outside the critical care environment. Transfer to a lower level of care will result in altered life or limb morbidity and mortality. 3. Multidisciplinary rounds completed. 4. ABCDE bundle addressed.
--- NOTE | 2020-03-20 21:35 | Progress Note ---
Provider Note Provider Note: Patient received last dose of Eliquis at 10 AM today. Will plan for debridement of sacral decubitus on Monday.
--- NOTE | 2020-03-21 00:47 | PDOC PROGRESS REPORT ---
Subjective Progress Note for:: 03/20/20 Subjective:: I am seeing the patient during dialysis this morning. He is tolerating dialysis without much issues. He continues to be oligo-anuric. Urine output has been anywhere between 50 to 190 mL daily. Now he has a trach. Surgery plans to do the cubitus ulcer debridement today. Patient is also awaiting placement to LTAC facility. Reason For Visit: WEAKNESS,ELEVATED TROPONIN,CHF Physical Exam Vital Signs: Temp Pulse Resp BP Pulse Ox 98.2 F 98 103 H 158/64 H 96 03/18/20 16:00 03/20/20 08:08 03/20/20 08:08 03/20/20 05:32 03/20/20 08:08 Pulse Oximeter Nocturnal Start: 02/08/20 13:55 Freq: RTQ4 Status: Complete Protocol: Document 02/09/20 04:00 LRO (Rec: 02/09/20 05:38 LRO [id number]) Nocturnal Pulse Oximetry Equipment Usage Equipment in Use Oxygen Delivery Method (includes room Room Air air) O2 Sat by Pulse Oximetry (92-100) 95 Continuous SpO2 Machine # 2 Pulse Oximeter Nocturnal Start: 02/10/20 11:39 Freq: RTQ4 Status: Complete Protocol: Document 02/11/20 04:06 PMU (Rec: 02/11/20 05:06 PMU [email or web address]) Nocturnal Pulse Oximetry Equipment Usage Equipment in Use Oxygen Delivery Method (includes room Room Air air) O2 Sat by Pulse Oximetry (92-100) 93 Continuous SpO2 Machine # N2 Intake & Output 03/19/20 03/20/20 03/21/20 06:59 06:59 06:59 Intake Total 1020 750 Output Total 3122 190 8 Balance -2102 560 -8 Weight 115.5 kg 113.7 kg Vitals during dialysis: Blood pressure 169/61, heart rate of 103, respiration of 16, oxygen saturation 94% with FiO2 of 45% via trach. Exam: Limited exam urine to COVID-19 infection isolation. General appearance: PRESENT: Still on mechanical ventilation via trach. Patient is now awake without sedation. Head exam: PRESENT: atraumatic, normocephalic Eye exam: PRESENT: conjunctiva pale, PERRLA. ABSENT: scleral icterus Respiratory exam: PRESENT: Diminished breath sounds. Positive wheezes ABSENT: crackles, rales, rhonchi, unlabored, Cardiovascular exam: PRESENT: Regular rate rhythm -+S1, +S2. ABSENT: diastolic murmur, systolic murmur GI/Abdominal exam: PRESENT: normal bowel sounds, soft. ABSENT: guarding, mass, tenderness Extremities exam: Positive grade 1 bilateral lower extremity pitting edema Neurological exam: PRESENT: awake Skin exam: PRESENT: dry, warm, Cardiovascular exam: PRESENT: +S1, +S2 GI/Abdominal exam: PRESENT: normal bowel sounds, soft. ABSENT: organomegaly, tenderness Results Laboratory Results: 03/20/20 06:10 03/20/20 06:10 03/20/20 03/20/20 06:10 06:10 WBC 11.7 H RBC 2.88 L Hgb 9.0 L Hct 27.5 L MCV 96 MCH 31.1 MCHC 32.5 RDW 21.1 H Plt Count 292 Seg Neutrophils % Not Reportable Sodium 132.9 L Potassium 3.8 Chloride 97 L Carbon Dioxide 22 Anion Gap 14 BUN 92 H Creatinine 2.65 H Est GFR ( Amer) 29 L Glucose 74 L Calcium 7.6 L 02/08/20 02/08/20 02/21/20 09:49 13:11 04:50 Troponin I 0.160 0.155 NT-Pro-B Natriuret Pep 5540 H 88681 H 02/26/20 03/09/20 03/20/20 05:35 04:00 06:10 Troponin I NT-Pro-B Natriuret Pep 35909 H 68872 H 68842 H Impressions: Hip/Pelvis X-Ray 02/08/20 00:00 IMPRESSION: No acute fracture. Severe degenerative changes of the left hip. Knee X-Ray 02/08/20 00:00 IMPRESSION: NEGATIVE STUDY OF THE RIGHT KNEE. NO RADIOGRAPHIC EVIDENCE OF ACUTE INJURY. Renal Ultrasound 02/21/20 00:00 IMPRESSION: Increased echogenicity of the renal parenchyma suggestive of underlying chronic medical renal disease. There is no hydronephrosis. There is a Ryan catheter within the urinary bladder. Head CT 03/08/20 08:56 IMPRESSION: MILD CHRONIC CHANGES OF ATROPHY AND MICROVASCULAR ISCHEMIA. NO ACUTE PROCESS. EVIDENCE OF ACUTE STROKE: NO. Chest CT 03/08/20 10:12 IMPRESSION: Extensive bilateral infiltrates. No pneumothorax. KUB X-Ray 03/10/20 00:00 IMPRESSION: Nonspecific bowel gas pattern. Esophagogastric tube tip and side- hole are within the stomach. Chest X-Ray 03/18/20 00:00 IMPRESSION: STABLE APPEARANCE OF THE CHEST. SUPPORT DEVICES UNCHANGED. Assessment & Plan - Diagnosis (1) Acute kidney injury superimposed on chronic kidney disease Is this a current diagnosis for this admission?: Yes Plan: Patient is still oliguric, requiring renal replacement therapy. Patient likely to have ATN in the background of cardiomyopathy with ejection fraction of 25 to 30% and grade 3 diastolic dysfunction. Continue renal replacement therapy support. We will do dialysis today for 3.0 hours, using the patient's dialysis catheter, with 3 potassium bath, blood flow rate of 300 mL per minute, dialysate flow rate of 800 mL per minute, ultrafiltration 3-3.5 L as tolerated, no heparin and Procrit with 25,000 units during dialysis intravenously. Patient is currently being monitored throughout dialysis treatment. In preparation for LTAC placement. Will consult surgery for PermCath placement. (2) Acute respiratory failure due to COVID-19 Is this a current diagnosis for this admission?: Yes Plan: Per automotive electrician helper. On ventilator via trach. (3) Hypocalcemia Is this a current diagnosis for this admission?: Yes Plan: Currently on calcitriol , and increased dose of vitamin D. Now within normal limits. (4) Anemia Qualifiers: Anemia type: iron deficiency Is this a current diagnosis for this admission?: Yes Plan: Status post EGD showing only gastric erosions. Patient has had multiple blood transfusions. Currently on Retacrit during dialysis. (5) Atrial fibrillation Qualifiers: Atrial fibrillation type: persistent (not longstanding) Qualified Code(s): I48.19 - Other persistent atrial fibrillation; I48.1 - Persistent atrial fibrillation Is this a current diagnosis for this admission?: Yes (6) Hypoalbuminemia Is this a current diagnosis for this admission?: Yes Plan: Chronic and persistent. (7) COVID-19 virus infection Is this a current diagnosis for this admission?: Yes Plan: Management per automotive electrician helper. Repeat testing sent on 03/05 positive. (8) Hyponatremia Is this a current diagnosis for this admission?: Yes Plan: Due to hypervolemic state. Unchanged and stable. (9) MRSA pneumonia Qualifiers: Laterality: bilateral Lung location: unspecified part of lung Qualified Code(s): J15.212 - Pneumonia due to Methicillin resistant Staphylococcus aureus Is this a current diagnosis for this admission?: Yes Plan: Completed treatment with cefepime and doxycycline. (10) Gram negative sepsis Is this a current diagnosis for this admission?: Yes Plan: Resolved. (11) Nonischemic cardiomyopathy Is this a current diagnosis for this admission?: Yes (12) Decubitus ulcer of sacral region, unstageable Is this a current diagnosis for this admission?: Yes Plan: Scheduled for debridement per surgery. (13) Elevated liver enzymes Is this a current diagnosis for this admission?: Yes - Time Time with patient: 15-25 minutes
[2020-03-21] MEDS: LEVALBUTEROL HCL NEB 1.25 MG/3 ML AMPUL NEB SCH ×4 (02:48→20:59)
[2020-03-21] MEDS: INSULIN LISPRO 100 UNIT/ML 3 ML VIAL SUBCUT SCH ×4 (05:45→18:01)
--- NOTE | 2020-03-21 08:58 | PDOC CRITICAL CARE PROG REPORT ---
General Date:: 03/21/20 ICU Day:: 38 Ventilator Day:: 38 Hospital Day:: 42 Resuscitation Status: Full Code Events in the past 12 to 24 Hours:: Pulmonary support is less. 03/16 The patient remains on SBT. I have decreased PS from 12 to 6. the poatient still appears to have good TVs. Maintaining his 02 sat nicely. CXR shows persistent loower lobe densities though impropcved frpom several days ago. He is on 40% FI02. The patient remains profoundly weak. he is off all antimicrobials at this time. 03/17 The patient was placed on trach collar overnight and that is where he has remained. He is alert and appears to unndedrstand me when i speak with him. Respiratory status is stable. CXR shows bilateral principally lower lobe infiltrates. Weight is down about 5 kg after yesterday's dialysis. The patient appears ready for placement at this time he has a rather severe critical illness polyneuropathy. 03/18 The patient is on the ventilator presently. he had been on about 40% FIO2. For some reason his o2 requirements increased overnight to 65% . Repeat CXR is pending. His 02 sat is hovering about 90%. 03/19 The patient s awake. He appears relatively comfortable. He is back on an FI02 of 45%. Will talk to a surgeon about his decubitus and need for a tunnelled catheter. The patient will need placement in an LTACH. 03/20 the patient looks abut the same. I discussed need for [facility] dialysis catheter or fistula. the patient was to have sacral debridement today biut it hasa been put onhold a s thepatient has b een on Eliquis. He gita SBT with PS of 10 and tolerates it well. Little change otherwise. The patient may go to T[facility] in the next several days. 03/21 The patient is awake and comfortable. Cristian try once again on trach collar today. Hw ill need a fistula or tunnelled catheter for [facility] dialsis and we doid speak to surgery about this. The patie t has developed a large sacral decubitus that requires debridement. This is going to be done onMonday with dr. Khan. Reason for ICU Addmission:: Acute respiratory distress and need for intubation. Now trached but still on the vent on fairly high support. Physical Exam Vital Signs: Temp Pulse Resp BP Pulse Ox 99.3 F 105 H 16 137/51 H 97 03/21/20 08:00 03/21/20 08:39 03/21/20 08:39 03/21/20 08:00 03/21/20 08:39 Pulse Oximeter Nocturnal Start: 02/08/20 13:55 Freq: RTQ4 Status: Complete Protocol: Document 02/09/20 04:00 LRO (Rec: 02/09/20 05:38 LRO [id number]) Nocturnal Pulse Oximetry Equipment Usage Equipment in Use Oxygen Delivery Method (includes room Room Air air) O2 Sat by Pulse Oximetry (92-100) 95 Continuous SpO2 Machine # 2 Pulse Oximeter Nocturnal Start: 02/10/20 11:39 Freq: RTQ4 Status: Complete Protocol: Document 02/11/20 04:06 PMU (Rec: 02/11/20 05:06 PMU [email or web address]) Nocturnal Pulse Oximetry Equipment Usage Equipment in Use Oxygen Delivery Method (includes room Room Air air) O2 Sat by Pulse Oximetry (92-100) 93 Continuous SpO2 Machine # N2 Intake & Output 03/20/20 03/21/20 03/22/20 06:59 06:59 06:59 Intake Total 750 1340 Output Total 190 4911 0 Balance 560 -3571 0 Weight 113.7 kg 111.6 kg Weight/Height Weight 111.6 kg Height 5 ft 9 in Laboratory/Radiographs Laboratory Results: 03/20/20 06:10 03/20/20 06:10 02/08/20 02/08/20 02/21/20 09:49 13:11 04:50 Troponin I 0.160 0.155 NT-Pro-B Natriuret Pep 5540 H 70925 H 02/26/20 03/09/20 03/20/20 05:35 04:00 06:10 Troponin I NT-Pro-B Natriuret Pep 15418 H 43948 H 56054 H Impressions: Hip/Pelvis X-Ray 02/08/20 00:00 IMPRESSION: No acute fracture. Severe degenerative changes of the left hip. Knee X-Ray 02/08/20 00:00 IMPRESSION: NEGATIVE STUDY OF THE RIGHT KNEE. NO RADIOGRAPHIC EVIDENCE OF ACUTE INJURY. Renal Ultrasound 02/21/20 00:00 IMPRESSION: Increased echogenicity of the renal parenchyma suggestive of underlying chronic medical renal disease. There is no hydronephrosis. There is a Ryan catheter within the urinary bladder. Head CT 03/08/20 08:56 IMPRESSION: MILD CHRONIC CHANGES OF ATROPHY AND MICROVASCULAR ISCHEMIA. NO ACUTE PROCESS. EVIDENCE OF ACUTE STROKE: NO. Chest CT 03/08/20 10:12 IMPRESSION: Extensive bilateral infiltrates. No pneumothorax. KUB X-Ray 03/10/20 00:00 IMPRESSION: Nonspecific bowel gas pattern. Esophagogastric tube tip and side- hole are within the stomach. Chest X-Ray 03/18/20 00:00 IMPRESSION: STABLE APPEARANCE OF THE CHEST. SUPPORT DEVICES UNCHANGED. Assessment and Plan - Diagnosis (1) Acute kidney injury superimposed on chronic kidney disease Is this a current diagnosis for this admission?: Yes (2) Acute on chronic combined systolic (congestive) and diastolic (congestive) heart failure Is this a current diagnosis for this admission?: Yes (3) Acute respiratory failure due to COVID-19 Is this a current diagnosis for this admission?: Yes (4) Atrial fibrillation Qualifiers: Atrial fibrillation type: persistent (not longstanding) Qualified Code(s): I48.19 - Other persistent atrial fibrillation; I48.1 - Persistent atrial fibrillation Is this a current diagnosis for this admission?: Yes (5) COVID-19 virus infection Is this a current diagnosis for this admission?: Yes (6) Diabetes 1.5, managed as type 2 Is this a current diagnosis for this admission?: Yes (7) Anemia Qualifiers: Anemia type: iron deficiency Is this a current diagnosis for this admission?: Yes (8) Critical illness polyneuropathy Is this a current diagnosis for this admission?: Yes (9) Sacral decubitus ulcer Is this a current diagnosis for this admission?: Yes (10) HTN (hypertension) Qualifiers: Hypertension type: essential hypertension Qualified Code(s): I10 - Essential (primary) hypertension Is this a current diagnosis for this admission?: Yes Critical Time Critical Time (minutes): 30 Level of Care: ICU -: 1. The care of a critical patient is a dynamic process. This note is a termite control service representative synopsis but static in nature. The timeframe for treatments given in order is not necessarily the actual time these treatments may have been done. 2. This patient requires critical care secondary to ongoing requirements for therapy not offered or safe outside the critical care environment. Transfer to a lower level of care will result in altered life or limb morbidity and mor tality. 3. Multidisciplinary rounds completed. 4. ABCDE bundle addressed.
[2020-03-21] MEDS: CALCITRIOL 1 MCG/ML ORAL SOLN 15 ML NG SCH (10:18)
[2020-03-21] MEDS: INSULIN GLARGINE,HUM.REC.ANLOG 1,000 UNIT/10 ML VIAL SUBCUT SCH (10:18)
[2020-03-21] MEDS: FUROSEMIDE INJ/PF 40 MG/4 ML SDV IV SCH ×2 (10:19→21:37)
[2020-03-21] MEDS: DIGOXIN INJ 0.5 MG/2 ML AMPULE IV SCH (10:19)
[2020-03-21] MEDS: PANTOPRAZOLE SODIUM 40 MG VIAL IV SCH (10:19)
[2020-03-21] MEDS: CHOLECALCIFEROL (D3) 1,000 UNIT (25 MCG) TABLET NG SCH ×3 (10:20→18:02)
[2020-03-21] MEDS: HYDRALAZINE HCL 25 MG TABLET PO SCH ×2 (10:20→21:37)
[2020-03-21] MEDS: LABETALOL HCL 200 MG TABLET NG SCH ×2 (10:20→21:37)
[2020-03-21] MEDS: AMINO AC/PROTEIN HYDR/WHEY PRO 11 GM/45 ML PKT NG SCH ×4 (10:22→21:38)
[2020-03-21] MEDS: APIXABAN 2.5 MG TABLET NG SCH (18:01)
[2020-03-22] MEDS: INSULIN LISPRO 100 UNIT/ML 3 ML VIAL SUBCUT SCH ×4 (00:54→17:55)
[2020-03-22] MEDS: LEVALBUTEROL HCL NEB 1.25 MG/3 ML AMPUL NEB SCH ×4 (02:22→20:58)
[2020-03-22 05:45] LABS: HEMATOCRIT 27.4 % (37.9-51.0); HEMOGLOBIN 8.9 g/dL (13.5-17.0); MEAN CORPUSCULAR HEMOGLOBIN 31.3 pg (27.0-33.4); MEAN CORPUSCULAR HGB CONC 32.5 g/dL (32.0-36.0); MEAN CORPUSCULAR VOLUME 96 fl (80-97); PLATELET COUNT 264 10^3/uL (150-450); RED BLOOD COUNT 2.84 10^6/uL (4.35-5.55); RED CELL DISTRIBUTION WIDTH 20.4 % (11.5-14.0); WHITE BLOOD COUNT 9.2 10^3/uL (4.0-10.5)
[2020-03-22 06:06] LABS: ABSOLUTE LYMPHOCYTES# (MANUAL) 0.6 10^3/uL (0.5-4.7); ABSOLUTE MONOCYTES # (MANUAL) 0.6 10^3/uL (0.1-1.4); BASOPHILS % (MANUAL) 0 % (0-2); EOSINOPHILS % (MANUAL) 1 % (0-6); LYMPHOCYTES % (MANUAL) 6 % (13-45); MONOCYTES % (MANUAL) 6 % (3-13); PLATELET COMMENT ADEQUATE; SEGMENTED NEUTROPHILS % (MAN) 87 % (42-78); TOTAL CELLS COUNTED 100
[2020-03-22 06:09] LABS: ANISOCYTOSIS 2+
[2020-03-22 06:10] LABS: POLYCHROMASIA SLIGHT
[2020-03-22 06:11] LABS: ANION GAP 10 (5-19); BLOOD UREA NITROGEN 79 mg/dL (7-20); CALCIUM 7.3 mg/dL (8.4-10.2); CARBON DIOXIDE 24 mmol/L (22-30); CHLORIDE 98 mmol/L (98-107); GLUCOSE 114 mg/dL (75-110); POTASSIUM 3.9 mmol/L (3.6-5.0)
[2020-03-22 06:12] LABS: SCHISTOCYTES SLIGHT
[2020-03-22 07:00] LABS: DIGOXIN 1.97 ng/mL (0.8-2.0)
--- NOTE | 2020-03-22 08:03 | RADIOLOGY REPORT (SQ) ---
EXAM DESCRIPTION: CHEST SINGLE VIEW IMAGES COMPLETED DATE/TIME: 03/22/2020 6:16 am REASON FOR STUDY: resp failur,persistent lower lobe densities COMPARISON: Multiple chest films since 03/14/2020 EXAM PARAMETERS: NUMBER OF VIEWS: One view. TECHNIQUE: Single frontal radiographic view of the chest acquired. RADIATION DOSE: NA LIMITATIONS: None. FINDINGS: LUNGS AND PLEURA: Persistent dense consolidation in the bilateral lower lobes unchanged No pleural or pneumothorax. MEDIASTINUM AND HILAR STRUCTURES: No masses. Contour normal. HEART AND VASCULAR STRUCTURES: Stable cardiomegaly. Old sternotomy for CABG BONES: No acute findings. HARDWARE: Tracheostomy tube tip upper trachea. Right jugular central line tip superior vena cava. N asogastric tube tip and side port in the stomach. Loop recorder anterior left chest OTHER: No other significant finding. IMPRESSION: No change from 03/14/2020. TECHNICAL DOCUMENTATION: JOB ID: [id number] 2010 [employer]- All Rights Reserved Reading location - IP/workstation name: [id number]
--- NOTE | 2020-03-22 09:23 | PDOC CRITICAL CARE PROG REPORT ---
General Date:: 03/22/20 ICU Day:: 39 Ventilator Day:: 39 Hospital Day:: 43 Resuscitation Status: Full Code Events in the past 12 to 24 Hours:: Pulmonary support is less. 03/16 The patient remains on SBT. I have decreased PS from 12 to 6. the poatient still appears to have good TVs. Maintaining his 02 sat nicely. CXR shows persistent loower lobe densities though impropcved frpom several days ago. He is on 40% FI02. The patient remains profoundly weak. he is off all antimicrobials at this time. 03/17 The patient was placed on trach collar overnight and that is where he has remained. He is alert and appears to unndedrstand me when i speak with him. Respiratory status is stable. CXR shows bilateral principally lower lobe infiltrates. Weight is down about 5 kg after yesterday's dialysis. The patient appears ready for placement at this time he has a rather severe critical illness polyneuropathy. 03/18 The patient is on the ventilator presently. he had been on about 40% FIO2. For some reason his o2 requirements increased overnight to 65% . Repeat CXR is pending. His 02 sat is hovering about 90%. 03/19 The patient s awake. He appears relatively comfortable. He is back on an FI02 of 45%. Will talk to a surgeon about his decubitus and need for a tunnelled catheter. The patient will need placement in an LTACH. 03/20 the patient looks abut the same. I discussed need for penitentiary dialysis catheter or fistula. the patient was to have sacral debridement today biut it hasa been put onhold a s thepatient has b een on Eliquis. He gita SBT with PS of 10 and tolerates it well. Little change otherwise. The patient may go to Tach in the next several days. 03/21 The patient is awake and comfortable. Cristian try once again on trach collar today. Hw ill need a fistula or tunnelled catheter for penitentiary dialsis and we doid speak to surgery about this. The patie t has developed a large sacral decubitus that requires debridement. This is going to be done onMonday with dr. Khan. 03/22 The patient is awake and appears to leisten when o speak to him but often he just starrees at me. He is afebbrile. He isgetting dialysis 3x week. he does nt have alot of secretions. i just put him back on trach collar. He remains prpofoundly weak unable to lift armor leg counter gravity. Her has a large advanced sacral decubitus that will likel be debrided by surgery tomotrrow. he is awaiting place ent is a rehab center. Reason for ICU Addmission:: Acute respiratory distress and need for intubation. Now trached but still on the vent on fairly high support. Physical Exam Vital Signs: Temp Pulse Resp BP Pulse Ox 99.7 F 101 H 19 164/67 H 98 03/22/20 08:00 03/22/20 08:25 03/22/20 08:25 03/22/20 08:00 03/22/20 08:25 Pulse Oximeter Nocturnal Start: 02/08/20 13:55 Freq: RTQ4 Status: Complete Protocol: Document 02/09/20 04:00 LRO (Rec: 02/09/20 05:38 LRO [id number]) Nocturnal Pulse Oximetry Equipment Usage Equipment in Use Oxygen Delivery Method (includes room Room Air air) O2 Sat by Pulse Oximetry (92-100) 95 Continuous SpO2 Machine # 2 Pulse Oximeter Nocturnal Start: 02/10/20 1 1:39 Freq: RTQ4 Status: Complete Protocol: Document 02/11/20 04:06 PMU (Rec: 02/11/20 05:06 PMU [email or web address]) Nocturnal Pulse Oximetry Equipment Usage Equipment in Use Oxygen Delivery Method (includes room Room Air air) O2 Sat by Pulse Oximetry (92-100) 93 Continuous SpO2 Machine # N2 Intake & Output 03/21/20 03/22/20 03/23/20 06:59 06:59 06:59 Intake Total 1340 526 Output Total 4911 590 0 Balance -3571 -64 0 Weight 111.6 kg 110.8 kg Weight/Height Weight 110.8 kg Height 5 ft 9 in General appearance: PRESENT: no acute distress Head exam: PRESENT: atraumatic, normocephalic Eye exam: PRESENT: conjunctiva pink Ear exam: PRESENT: normal external ear exam Mouth exam: PRESENT: moist Teeth exam: PRESENT: edentulous Neck exam: PRESENT: full ROM Respiratory exam: PRESENT: crackles. ABSENT: prolonged expiratory phas Pulses: PRESENT: +2 pedal pulses bilateral GI/Abdominal exam: PRESENT: normal bowel sounds, soft Rectal exam: PRESENT: deferred Gentrourinary exam: PRESENT: scrotal swelling. ABSENT: ecchymosis Extremities exam: PRESENT: full ROM Musculoskeletal exam: PRESENT: full ROM Neurological exam: PRESENT: alert, awake Psychiatric exam: PRESENT: flat affect Tubes/Lines: PRESENT: Nasogastic Tube Laboratory/Radiographs Laboratory Results: 03/22/20 05:27 03/22/20 05:27 03/22/20 03/22/20 05:27 05:27 WBC 9.2 RBC 2.84 L Hgb 8.9 L Hct 27.4 L MCV 96 MCH 31.3 MCHC 32.5 RDW 20.4 H Plt Count 264 Seg Neutrophils % Not Reportable Sodium 132.4 L Potassium 3.9 Chloride 98 Carbon Dioxide 24 Anion Gap 10 BUN 79 H Creatinine 2.72 H Est GFR ( Amer) 28 L Glucose 114 H Calcium 7.3 L 02/08/20 02/08/20 02/21/20 09:49 13:11 04:50 Troponin I 0.160 0.155 NT-Pro-B Natriuret Pep 5540 H 54425 H 02/26/20 03/09/20 03/20/20 05:35 04:00 06:10 Troponin I NT-Pro-B Natriuret Pep 71623 H 74172 H 89117 H Impressions: Hip/Pelvis X-Ray 02/08/20 00:00 IMPRESSION: No acute fracture. Severe degenerative changes of the left hip. Knee X-Ray 02/08/20 00:00 IMPRESSION: NEGATIVE STUDY OF THE RIGHT KNEE. NO RADIOGRAPHIC EVIDENCE OF ACUTE INJURY. Renal Ultrasound 02/21/20 00:00 IMPRESSION: Increased echogenicity of the renal parenchyma suggestive of underlying chronic medical renal disease. There is no hydronephrosis. There is a Ryan catheter within the urinary bladder. Head CT 03/08/20 08:56 IMPRESSION: MILD CHRONIC CHANGES OF ATROPHY AND MICROVASCULAR ISCHEMIA. NO ACUTE PROCESS. EVIDENCE OF ACUTE STROKE: NO. Chest CT 03/08/20 10:12 IMPRESSION: Extensive bilateral infiltrates. No pneumothorax. KUB X-Ray 03/10/20 00:00 IMPRESSION: Nonspecific bowel gas pattern. Esophagogastric tube tip and side- hole are within the stomach. Chest X-Ray 03/22/20 00:00 IMPRESSION: No change from 03/14/2020. Assessment and Plan - Diagnosis (1) Acute kidney injury superimposed on chronic kidney disease Is this a current diagnosis for this admission?: Yes (2) Acute on chronic combined systolic (congestive) and diastolic (congestive) heart failure Is this a current diagnosis for this admission?: Yes Plan: Patient continues to appear euvolemic clinically 03/16 The patient is on dialysis. His edema appears to be a little better than it was a few weeks ago. His weight is actually up however, the past several days. His weight was 115.5 on 03/12 and is now about 120 kg. perhaps we can be a little more aggressive about getting fluid off at dialysis. 03/17 The patient has a long hsitory of systolic dysfn. He was a wearing a lifevest at one time His weight is down after his lasrt dialysis. No change in02 needs latewly Little change in radiolgical appearance. 03/19 Weight is stable. CXR unchanged. BP is a bit high. I added Hydralazine po to regimen. 03/22 Npo gross evidence of ovcert CHF at [facility] rtime. (3) Acute respiratory failure due to COVID-19 Is this a current diagnosis for this admission?: Yes Plan: Seems to be improving today. Have gotten Fio2 to 40% and will now try PEEP to 5 and then rate. 03/18 His FI02 requirements are up. Repeat CXR pending. Was on trach collar all day yesterday. His COVID test as of 03/05 was positive, the clinical significance is unclear 03/19 was on the ventilator yesterday on CPAP. He remains on CPAP on pS of 10. FI02 requirments are back down. 03/22 Remaisn on about 40% FI02. I just placed patient on trach collar once againe. he appears ready for LKtach. (4) Atrial fibrillation Qualifiers: Atrial fibrillation type: persistent (not longstanding) Qualified Code(s): I48.19 - Other persistent atrial fibrillation; I48.1 - Persistent atrial fibrillation Is this a current diagnosis for this admission?: Yes Plan: * * Rate control with metoprolol. Change 100 mg NG twice daily to 50 mg NG every 6 hours. Hold dose for hypotension or bradycardia. If additional rate control as needed, restart diltiazem. The patient is on digoxin daily as well presently. His heart rate is about 100- 110. 03/17 Heart rate generally controlled presently. The heart rate is generally < 100m or 11o. 03/22 No real change in rate. Patient on Apixaban but on hold presently for his debridement (5) COVID-19 virus infection Is this a current diagnosis for this admission?: Yes Plan: The patient has been consistently Covid -19 positve. Unclear what this means clinically. (6) Diabetes 1.5, managed as type 2 Is this a current diagnosis for this admission?: Yes Plan: The patient's blood sugares remain rather elevated. he has been getting a l;arge dose of decaron that we will be decreasiung. If need be we will addd some Levimir of Lantus. 02/18 lantus added to regimen 10 units and he remains on sliding scale. 02/20 lantus increased from 15 to 20 units as the blood sugar remains elevated. 03/18 His blood sugars appear well controlled presently. (7) Anemia Qualifiers: Anemia type: iron deficiency Is this a current diagnosis for this admission?: Yes (8) Critical illness polyneuropathy Is this a current diagnosis for this admission?: Yes Plan: The patient remains profoundly weakk. Has been in bed chronically ll for over 1 month. At various times he has been on heavy sedation and has been cvonsistently on steroids. He does not appear able to move hsi extrmities against gravity at this time. (9) Sacral decubitus ulcer Is this a current diagnosis for this admission?: Yes Plan: Patient has a large sacral decubitus. Will ask surgery to see patient. (10) HTN (hypertension) Qualifiers: Hypertension type: essential hypertension Qualified Code(s): I10 - Essential (primary) hypertension Is this a current diagnosis for this admission?: Yes Plan: Pt is still on Cardene will swith metoprolol to labetolol and try to discontinue Cardene. 03/19 The patient is onlabetalol. I added po hydralazine to regimen. Critical Time Critical Time (minutes): 25 Level of Care: ICU -: 1. The care of a critical patient is a dynamic process. This note is a maintenance representative synopsis but static in nature. The timeframe for treatments given in order is not necessarily the actual time these treatments may have been done. 2. This patient requires critical care secondary to ongoing requirements for therapy not offered or safe outside the critical care environment. Transfer to a lower level of care will result in altered life or limb morbidity and mortality. 3. Multidisciplinary rounds completed. 4. ABCDE bundle addressed.
[2020-03-22] MEDS: AMINO AC/PROTEIN HYDR/WHEY PRO 11 GM/45 ML PKT NG SCH ×4 (11:29→22:15)
[2020-03-22] MEDS: CALCITRIOL 1 MCG/ML ORAL SOLN 15 ML NG SCH (11:29)
[2020-03-22] MEDS: INSULIN GLARGINE,HUM.REC.ANLOG 1,000 UNIT/10 ML VIAL SUBCUT SCH (11:29)
[2020-03-22] MEDS: PANTOPRAZOLE SODIUM 40 MG VIAL IV SCH (11:33)
[2020-03-22] MEDS: APIXABAN 2.5 MG TABLET NG SCH ×2 (11:33→17:18)
[2020-03-22] MEDS: DIGOXIN INJ 0.5 MG/2 ML AMPULE IV SCH (11:33)
[2020-03-22] MEDS: FUROSEMIDE INJ/PF 40 MG/4 ML SDV IV SCH ×2 (11:34→22:15)
[2020-03-22] MEDS: CHOLECALCIFEROL (D3) 1,000 UNIT (25 MCG) TABLET NG SCH ×3 (11:34→17:55)
[2020-03-22] MEDS: HYDRALAZINE HCL 25 MG TABLET PO SCH ×2 (11:34→22:15)
[2020-03-22] MEDS: LABETALOL HCL 200 MG TABLET NG SCH ×2 (11:34→22:15)
[2020-03-23] MEDS: LEVALBUTEROL HCL NEB 1.25 MG/3 ML AMPUL NEB SCH ×4 (02:35→20:56)
[2020-03-23] MEDS ORDERED: NORMAL SALINE 1000 ML 1,000 ML IV PRN (05:00)
[2020-03-23] MEDS ORDERED: EPOETIN ALFA-EPBX 20,000 UNIT in SYRINGE, DISPOSABLE, 1 EACH IV PRN (05:00)
[2020-03-23] MEDS ORDERED: HEPARIN SOD (PORCINE) 1,000 UNIT/ML 10 ML VIAL IV PRN (05:00)
[2020-03-23] MEDS: INSULIN LISPRO 100 UNIT/ML 3 ML VIAL SUBCUT SCH ×4 (06:33→18:54)
[2020-03-23] MEDS: HYDRALAZINE HCL INJ/PF 20 MG/1 ML SDV IV PRN (06:52)
[2020-03-23 07:36] LABS: HEMATOCRIT 26.3 % (37.9-51.0); HEMOGLOBIN 8.8 g/dL (13.5-17.0); MEAN CORPUSCULAR HEMOGLOBIN 31.7 pg (27.0-33.4); MEAN CORPUSCULAR HGB CONC 33.5 g/dL (32.0-36.0); MEAN CORPUSCULAR VOLUME 95 fl (80-97); PLATELET COUNT 228 10^3/uL (150-450); RED BLOOD COUNT 2.78 10^6/uL (4.35-5.55); RED CELL DISTRIBUTION WIDTH 19.9 % (11.5-14.0); WHITE BLOOD COUNT 6.7 10^3/uL (4.0-10.5)
[2020-03-23 07:56] LABS: ANION GAP 12 (5-19); BLOOD UREA NITROGEN 90 mg/dL (7-20); CALCIUM 7.3 mg/dL (8.4-10.2); CARBON DIOXIDE 23 mmol/L (22-30); CHLORIDE 99 mmol/L (98-107); GLUCOSE 82 mg/dL (75-110); POTASSIUM 3.7 mmol/L (3.6-5.0)
[2020-03-23 08:14] LABS: ABSOLUTE LYMPHOCYTES# (MANUAL) 0.5 10^3/uL (0.5-4.7); ABSOLUTE MONOCYTES # (MANUAL) 0.2 10^3/uL (0.1-1.4); BASOPHILS % (MANUAL) 0 % (0-2); EOSINOPHILS % (MANUAL) 0 % (0-6); LYMPHOCYTES % (MANUAL) 7 % (13-45); MONOCYTES % (MANUAL) 3 % (3-13); SEGMENTED NEUTROPHILS % (MAN) 90 % (42-78); TOTAL CELLS COUNTED 100
[2020-03-23 08:15] LABS: PLATELET COMMENT ADEQUATE
[2020-03-23 08:18] LABS: ANISOCYTOSIS 2+
[2020-03-23] MEDS: HYDRALAZINE HCL 25 MG TABLET PO SCH (09:13)
[2020-03-23] MEDS: APIXABAN 2.5 MG TABLET NG SCH ×2 (09:14→18:54)
[2020-03-23] MEDS: CALCITRIOL 1 MCG/ML ORAL SOLN 15 ML NG SCH (09:14)
[2020-03-23] MEDS: CHOLECALCIFEROL (D3) 1,000 UNIT (25 MCG) TABLET NG SCH ×3 (09:14→18:54)
[2020-03-23] MEDS: AMINO AC/PROTEIN HYDR/WHEY PRO 11 GM/45 ML PKT NG SCH ×4 (09:14→22:17)
[2020-03-23] MEDS: LABETALOL HCL 200 MG TABLET NG SCH ×2 (09:19→22:17)
[2020-03-23] MEDS: PANTOPRAZOLE SODIUM 40 MG VIAL IV SCH (09:40)
[2020-03-23] MEDS: FUROSEMIDE INJ/PF 40 MG/4 ML SDV IV SCH ×2 (09:40→22:17)
[2020-03-23] MEDS: DIGOXIN INJ 0.5 MG/2 ML AMPULE IV SCH (09:41)
--- NOTE | 2020-03-23 10:38 | PDOC CRITICAL CARE PROG REPORT ---
General Date:: 03/23/20 Resuscitation Status: Full Code Events in the past 12 to 24 Hours:: Remained on trach collar 24 hours. Review of systems relevant to events:: Pulmonary, neurological. Reason for ICU Addmission:: On trach collar but on 100%. Wean as tolerated. - Medications: Medications reviewed and adjusted accordingly: Yes Vasopressors:: None Sedation:: None Physical Exam Vital Signs: Temp Pulse Resp BP Pulse Ox 99.1 F 92 17 153/54 H 100 03/22/20 16:00 03/23/20 08:45 03/23/20 10:00 03/23/20 09:33 03/23/20 10:00 Pulse Oximeter Nocturnal Start: 02/08/20 13:55 Freq: RTQ4 Status: Complete Protocol: Document 02/09/20 04:00 LRO (Rec: 02/09/20 05:38 LRO [id number]) Nocturnal Pulse Oximetry Equipment Usage Equipment in Use Oxygen Delivery Method (includes room Room Air air) O2 Sat by Pulse Oximetry (92-100) 95 Continuous SpO2 Machine # 2 Pulse Oximeter Nocturnal Start: 02/10/20 11:39 Freq: RTQ4 Status: Complete Protocol: Document 02/11/20 04:06 PMU (Rec: 02/11/20 05:06 PMU [email or web address]) Nocturnal Pulse Oximetry Equipment Usage Equipment in Use Oxygen Delivery Method (includes room Room Air air) O2 Sat by Pulse Oximetry (92-100) 93 Continuous SpO2 Machine # N2 Intake & Output 03/22/20 03/23/20 03/24/20 06:59 06:59 06:59 Intake Total 526 820 Output Total 590 875 70 Balance -64 -55 -70 Weight 110.8 kg 108.6 kg Weight/Height Weight 108.6 kg Height 5 ft 9 in General appearance: PRESENT: no acute distress, obese Head exam: PRESENT: atraumatic, normocephalic Eye exam: PRESENT: conjunctiva pink, EOMI, PERRLA. ABSENT: scleral icterus Ear exam: PRESENT: normal external ear exam Mouth exam: PRESENT: moist, tongue midline Respiratory exam: PRESENT: clear to auscultation kevyn. ABSENT: rales, rhonchi, wheezes Cardiovascular exam: PRESENT: RRR. ABSENT: diastolic murmur, rubs, systolic murmur GI/Abdominal exam: PRESENT: normal bowel sounds, soft. ABSENT: distended, guarding, mass, organolmegaly, rebound, tenderness Rectal exam: PRESENT: deferred Gentrourinary exam: PRESENT: indwelling catheter Extremities exam: PRESENT: +1 edema Musculoskeletal exam: PRESENT: normal inspection Neurological exam: PRESENT: alert, awake, CN II-XII grossly intact, other - Moves only R hand and forearm. Psychiatric exam: PRESENT: appropriate affect, normal mood. ABSENT: homicidal ideation, suicidal ideation Skin exam: PRESENT: other - Sacral decubitus Tubes/Lines: PRESENT: Nasogastic Tube, Other - Tracheotomy. Laboratory/Radiographs Laboratory Results: 03/23/20 07:20 03/23/20 07:20 03/23/20 03/23/20 07:20 07:20 WBC 6.7 RBC 2.78 L Hgb 8.8 L Hct 26.3 L MCV 95 MCH 31.7 MCHC 33.5 RDW 19.9 H Plt Count 228 Seg Neutrophils % Not Reportable Sodium 133.5 L Potassium 3.7 Chloride 99 Carbon Dioxide 23 Anion Gap 12 BUN 90 H Creatinine 2.67 H Est GFR ( Amer) 29 L Glucose 82 Calcium 7.3 L 02/08/20 02/08/20 02/21/20 09:49 13:11 04:50 Troponin I 0.160 0.155 NT-Pro-B Natriuret Pep 5540 H 66441 H 02/26/20 03/09/20 03/20/20 05:35 04:00 06:10 Troponin I NT-Pro-B Natriuret Pep 57048 H 28773 H 75174 H Impressions: Hip/Pelvis X-Ray 02/08/20 00:00 IMPRESSION: No acute fracture. Severe degenerative changes of the left hip. Knee X-Ray 02/08/20 00:00 IMPRESSION: NEGATIVE STUDY OF THE RIGHT KNEE. NO RADIOGRAPHIC EVIDENCE OF ACUTE INJURY. Renal Ultrasound 02/21/20 00:00 IMPRESSION: Increased echogenicity of the renal parenchyma suggestive of underlying chronic medical renal disease. There is no hydronephrosis. There is a Ryan catheter within the urinary bladder. Head CT 03/08/20 08:56 IMPRESSION: MILD CHRONIC CHANGES OF ATROPHY AND MICROVASCULAR ISCHEMIA. NO ACUTE PROCESS. EVIDENCE OF ACUTE STROKE: NO. Chest CT 03/08/20 10:12 IMPRESSION: Extensive bilateral infiltrates. No pneumothorax. KUB X-Ray 03/10/20 00:00 IMPRESSION: Nonspecific bowel gas pattern. Esophagogastric tube tip and side- hole are within the stomach. Chest X-Ray 03/22/20 00:00 IMPRESSION: No change from 03/14/2020. All labs, radiographs, diagnostic studies and EKGs were personally reviewed: Yes In addition, reports of radiographic and diagnostic studies were read: Yes Assessment and Plan - Diagnosis (1) Acute respiratory failure due to COVID-19 Is this a current diagnosis for this admission?: Yes Plan: Needs to be retested soon in the next week. (2) Acute on chronic diastolic CHF (congestive heart failure) Is this a current diagnosis for this admission?: Yes Plan: Inactive (3) Coronary artery disease Qualifiers: Coronary Disease-Associated Artery/Lesion type: unspecified vessel or lesion type [place] vs. transplanted heart: [place] heart Associated angina: with unspecified angina Qualified Code(s): I25.119 - Atherosclerotic heart disease of [place] coronary artery with unspecified angina pectoris Is this a current diagnosis for this admission?: Yes Plan: Stable (4) Elevated brain natriuretic peptide (BNP) level Is this a current diagnosis for this admission?: Yes (5) Obesity (BMI 30-39.9) Is this a current diagnosis for this admission?: Yes Plan: No real change. (6) Anemia Qualifiers: Anemia type: iron deficiency Is this a current diagnosis for this admission?: Yes Plan: Stable (7) CKD (chronic kidney disease) stage 5, GFR less than 15 ml/min Is this a current diagnosis for this admission?: Yes Plan: To receive permacath today. (8) HTN (hypertension) Qualifiers: Hypertension type: essential hypertension Qualified Code(s): I10 - Ess ential (primary) hypertension Is this a current diagnosis for this admission?: Yes Plan: Controlled. (9) Polyneuropathy associated with critical illness Is this a current diagnosis for this admission?: Yes Plan: Severe. Needs LTAC. My be assistant terminal manager or even permanent. Plan Summary: Wean FiO2 as tolerated. PT evaluation for eventual LTAC. Critical Time Critical Time (minutes): 35 Level of Care: ICU Anticipated discharge: [facility] Anticipated DC Timeframe: Other -: 1. The care of a critical patient is a dynamic process. This note is a energy conservation representative synopsis but static in nature. The timeframe for treatments given in order is not necessarily the actual time these treatments may have been done. 2. This patient requires critical care secondary to ongoing requirements for therapy not offered or safe outside the critical care environment. Transfer to a lower level of care will result in altered life or limb morbidity and mortality. 3. Multidisciplinary rounds completed. 4. ABCDE bundle addressed.
--- NOTE | 2020-03-23 12:25 | PDOC PROGRESS REPORT ---
Subjective Progress Note for:: 03/23/20 Subjective:: I am seeing the patient during dialysis this morning. He still on the ventilator via trach collar. He is awake. He started passing a little bit more urine and for the past 24 hours made 395 mL. He is a scheduled for surgical debridement of decubitus ulcer today. Reason For Visit: WEAKNESS,ELEVATED TROPONIN,CHF Physical Exam Vital Signs: Temp Pulse Resp BP Pulse Ox 99.1 F 92 17 153/54 H 100 03/22/20 16:00 03/23/20 08:45 03/23/20 10:00 03/23/20 09:33 03/23/20 10:00 Pulse Oximeter Nocturnal Start: 02/08/20 13:55 Freq: RTQ4 Status: Complete Protocol: Document 02/09/20 04:00 LRO (Rec: 02/09/20 05:38 LRO [id number]) Nocturnal Pulse Oximetry Equipment Usage Equipment in Use Oxygen Delivery Method (includes room Room Air air) O2 Sat by Pulse Oximetry (92-100) 95 Continuous SpO2 Machine # 2 Pulse Oximeter Nocturnal Start: 02/10/20 11:39 Freq: RTQ4 Status: Complete Protocol: Document 02/11/20 04:06 PMU (Rec: 02/11/20 05:06 PMU [email or web address]) Nocturnal Pulse Oximetry Equipment Usage Equipment in Use Oxygen Delivery Method (includes room Room Air air) O2 Sat by Pulse Oximetry (92-100) 93 Continuous SpO2 Machine # N2 Intake & Output 03/22/20 03/23/20 03/24/20 06:59 06:59 06:59 Intake Total 526 820 Output Total 590 875 195 Balance -64 -55 -195 Weight 110.8 kg 108.6 kg Vitals during dialysis: Blood pressure 145/60, heart rate of 62, respiration of 15, oxygen saturation 99%, blood flow rate 350 mL/min and dialysate flow rate 800 mL/min. Exam: Limited exam due to COVID-19 infection on isolation. General appearance: PRESENT: On trach collar, awake Head exam: PRESENT: atraumatic, normocephalic Eye exam: PRESENT: conjunctiva pale, PERRLA. ABSENT: scleral icterus Respiratory exam: PRESENT: Coarse breath sounds. ABSENT: crackles, rales, rhonchi, unlabored, wheezes Cardiovascular exam: PRESENT: Regular rate rhythm -+S1, +S2. ABSENT: diastolic murmur, systolic murmur Extremities exam: +1 bilateral lower extremity pitting edema Neurological exam: PRESENT: alert, awake, Skin exam: PRESENT: dry, warm, Cardiovascular exam: PRESENT: +S1, +S2 GI/Abdominal exam: PRESENT: normal bowel sounds, soft. ABSENT: organomegaly, tenderness Results Laboratory Results: 03/23/20 07:20 03/23/20 07:20 03/23/20 03/23/20 07:20 07:20 WBC 6.7 RBC 2.78 L Hgb 8.8 L Hct 26.3 L MCV 95 MCH 31.7 MCHC 33.5 RDW 19.9 H Plt Count 228 Seg Neutrophils % Not Reportable Sodium 133.5 L Potassium 3.7 Chloride 99 Carbon Dioxide 23 Anion Gap 12 BUN 90 H Creatinine 2.67 H Est GFR ( Amer) 29 L Glucose 82 Calcium 7.3 L 02/08/20 02/08/20 02/21/20 09:49 13:11 04:50 Troponin I 0.160 0.155 NT-Pro-B Natriuret Pep 5540 H 29299 H 02/26/20 03/09/20 03/20/20 05:35 04:00 06:10 Troponin I NT-Pro-B Natriuret Pep 49525 H 99226 H 85607 H Impressions: Hip/Pelvis X-Ray 02/08/20 00:00 IMPRESSION: No acute fracture. Severe degenerative changes of the left hip. Knee X-Ray 02/08/20 00:00 IMPRESSION: NEGATIVE STUDY OF THE RIGHT KNEE. NO RADIOGRAPHIC EVIDENCE OF ACUTE INJURY. Renal Ultrasound 02/21/20 00:00 IMPRESSION: Increased echogenicity of the renal parenchyma suggestive of under lying chronic medical renal disease. There is no hydronephrosis. There is a Ryan catheter within the urinary bladder. Head CT 03/08/20 08:56 IMPRESSION: MILD CHRONIC CHANGES OF ATROPHY AND MICROVASCULAR ISCHEMIA. NO ACUTE PROCESS. EVIDENCE OF ACUTE STROKE: NO. Chest CT 03/08/20 10:12 IMPRESSION: Extensive bilateral infiltrates. No pneumothorax. KUB X-Ray 03/10/20 00:00 IMPRESSION: Nonspecific bowel gas pattern. Esophagogastric tube tip and side- hole are within the stomach. Chest X-Ray 03/22/20 00:00 IMPRESSION: No change from 03/14/2020. Assessment & Plan - Diagnosis (1) Acute kidney injury superimposed on chronic kidney disease Is this a current diagnosis for this admission?: Yes Plan: Patient is still oliguric, requiring renal replacement therapy. Patient likely to have ATN in the background of cardiomyopathy with ejection fraction of 25 to 30% and grade 3 diastolic dysfunction. Continue renal replacement therapy support. We will do dialysis today for 3.0 hours, using the patient's dialysis catheter, with 3 potassium bath, blood flow rate of 350 mL per minute, dialysate flow rate of 800 mL per minute, ultrafiltration 2 L as tolerated, no heparin and Procrit with 20,000 units during dialysis intravenously. Patient is currently being monitored throughout dialysis treatment. In preparation for LTAC placement, surgery consulted for PermCath placement. I spoke to Dr. Talley and he stated that he will place the PermCath right before transfer to LTAC. (2) Acute respiratory failure due to COVID-19 Is this a current diagnosis for this admission?: Yes Plan: Per clinical research physician. On ventilator via trach. (3) Hypocalcemia Is this a current diagnosis for this admission?: Yes Plan: Currently on calcitriol , and increased dose of vitamin D. Now within normal limits. (4) Anemia Qualifiers: Anemia type: iron deficiency Is this a current diagnosis for this admission?: Yes Plan: Status post EGD showing only gastric erosions. Patient has had multiple blood transfusions. Currently on Retacrit during dialysis. (5) Atrial fibrillation Qualifiers: Atrial fibrillation type: persistent (not longstanding) Qualified Code(s): I48.19 - Other persistent atrial fibrillation; I48.1 - Persistent atrial fibrillation Is this a current diagnosis for this admission?: Yes Plan: Previously on diltiazem drip. Now on IV digoxin. (6) Hypoalbuminemia Is this a current diagnosis for this admission?: Yes Plan: Chronic and persistent. (7) COVID-19 virus infection Is this a current diagnosis for this admission?: Yes Plan: Management per clinical research physician. Repeat testing sent on 03/05 positive. (8) Hyponatremia Is this a current diagnosis for this admission?: Yes Plan: Due to hypervolemic state. Unchanged and stable. (9) MRSA pneumonia Qualifiers: Laterality: bilateral Lung location: unspecified part of lung Qualified Code(s): J15.212 - Pneumonia due to Methicillin resistant Staphylococcus aureus Is this a current diagnosis for this admission?: Yes Plan: Completed treatment with cefepime and doxycycline. (10) Gram negative sepsis Is this a current diagnosis for this admission?: Yes Plan: Resolved. (11) Nonischemic cardiomyopathy Is this a current diagnosis for this admission?: Yes (12) Decubitus ulcer of sacral region, unstageable Is this a current diagnosis for this admission?: Yes Plan: For surgical debridement today. (13) Elevated liver enzymes Is this a current diagnosis for this admission?: Yes (14) Critical illness polyneuropathy Is this a current diagnosis for this admission?: Yes - Time Time with patient: 15-25 minutes
[2020-03-23] MEDS ORDERED: LIDOCAINE 1% INJ-PF (10 MG/ML) 30 ML SDV INJ PRN (16:00)
[2020-03-23] MEDS ORDERED: EPINEPHRINE INJ 1 MG/10 ML DISP.SYRIN INJ PRN (16:00)
[2020-03-23] MEDS ORDERED: MIDAZOLAM 2 MG/2 ML INJ ONE (16:10)
[2020-03-23] MEDS ORDERED: LIDOCAINE 1%/EPINEPHRINE INJ 20 ML VIAL INJ PRN (17:00)
[2020-03-23] MEDS ORDERED: MIDAZOLAM 2 MG/2 ML INJ IV ONE (18:00)
--- NOTE | 2020-03-23 19:48 | Operative Report ---
Nonrecallable Operative Report DATE OF SURGERY: 03/23/20 PREOPERATIVE DIAGNOSIS: Sacral decubitus ulcer (large eschar) POSTOPERATIVE DIAGNOSIS: Same as above OPERATION: Sharp, excisional debridement of skin, fatty soft tissue, and muscle of a large sacral decubitus ulcer (12 cm x 12 cm x 2 cm). SURGEON: SWATI GUILLEN ANESTHESIA: Local TISSUE REMOVED OR ALTERED: Sacral decubitus ulcer/eschar (12 cm x 12 cm x 2 cm). COMPLICATIONS: None apparent ESTIMATED BLOOD LOSS: Minimal PROCEDURE: Drains/implants: 4 x 4 gauze packing. Procedure in detail: After informed consent was obtained from the patient's , he was rolled in the left lateral decubitus position. The skin around the eschar was prepped and draped in a normal sterile fashion. The skin was infiltrated with 1% lidocaine with epinephrine. A 10 blade scalpel was used to excise the eschar down to healthy, bleeding tissue. The debridement encompassed the skin, fatty soft tissue, and muscle of the buttock. Once all obviously necrotic tissue was removed, a dressing was placed, and the procedure was concluded. All sponge, instrument, and needle counts were correct. Condition: Critical in ICU.
[2020-03-23] MEDS: HYDRALAZINE HCL 25 MG TABLET NG SCH (22:16)
[2020-03-24] MEDS: INSULIN LISPRO 100 UNIT/ML 3 ML VIAL SUBCUT SCH (01:32)
[2020-03-24] MEDS: LEVALBUTEROL HCL NEB 1.25 MG/3 ML AMPUL NEB SCH ×4 (02:40→20:37)
[2020-03-24] MEDS: CALCITRIOL 1 MCG/ML ORAL SOLN 15 ML NG SCH ×2 (10:12→13:06)
--- NOTE | 2020-03-24 10:57 | PDOC CRITICAL CARE PROG REPORT ---
General Date:: 03/24/20 ICU Day:: 41 Hospital Day:: 45 Resuscitation Status: Full Code Events in the past 12 to 24 Hours:: Back on trach collar. Review of systems relevant to events:: Neurological, pulmonary. Reason for ICU Addmission:: On trach collar at 40%. Needed vent overnight. - Medications: Medications reviewed and adjusted accordingly: Yes Vasopressors:: None Sedation:: None Physical Exam Vital Signs: Temp Pulse Resp BP Pulse Ox 99.3 F 99 32 H 140/50 H 93 03/24/20 08:00 03/24/20 10:00 03/24/20 10:00 03/24/20 10:00 03/24/20 10:00 Pulse Oximeter Nocturnal Start: 02/08/20 13:55 Freq: RTQ4 Status: Complete Protocol: Document 02/09/20 04:00 LRO (Rec: 02/09/20 05:38 LRO [email or web address]) Nocturnal Pulse Oximetry Equipment Usage Equipment in Use Oxygen Delivery Method (includes room Room Air air) O2 Sat by Pulse Oximetry (92-100) 95 Continuous SpO2 Machine # 2 Pulse Oximeter Nocturnal Start: 02/10/20 11:39 Freq: RTQ4 Status: Complete Protocol: Document 02/11/20 04:06 PMU (Rec: 02/11/20 05:06 PMU [email or web address]) Nocturnal Pulse Oximetry Equipment Usage Equipment in Use Oxygen Delivery Method (includes room Room Air air) O2 Sat by Pulse Oximetry (92-100) 93 Continuous SpO2 Machine # N2 Intake & Output 03/23/20 03/24/20 03/25/20 06:59 06:59 06:59 Intake Total 820 1000 Output Total 875 2487 0 Balance -55 -1487 0 Weight 108.6 kg 106 kg Weight/Height Weight 106 kg Height 5 ft 9 in General appearance: PRESENT: no acute distress, obese Head exam: PRESENT: atraumatic, normocephalic Eye exam: PRESENT: conjunctiva pink, EOMI, PERRLA. ABSENT: scleral icterus Ear exam: PRESENT: normal external ear exam Mouth exam: PRESENT: moist, tongue midline Neck exam: PRESENT: tracheostomy Respiratory exam: PRESENT: clear to auscultation kevyn. ABSENT: rales, rhonchi, wheezes Cardiovascular exam: PRESENT: RRR, tachycardia. ABSENT: diastolic murmur, rubs, systolic murmur GI/Abdominal exam: PRESENT: normal bowel sounds, soft. ABSENT: distended, guarding, mass, organolmegaly, rebound, tenderness Rectal exam: PRESENT: deferred Gentrourinary exam: PRESENT: indwelling catheter Extremities exam: PRESENT: +1 edema Neurological exam: PRESENT: altered, awake, CN II-XII grossly intact, other - Moves only his R hand to command. Too weak to move anything else. Skin exam: PRESENT: other - Sacral wound debrided yesterday. Tubes/Lines: PRESENT: Nasogastic Tube, Other - Tracheostomy. Laboratory/Radiographs Laboratory Results: 03/23/20 07:20 03/23/20 07:20 02/08/20 02/08/20 02/21/20 09:49 13:11 04:50 Troponin I 0.160 0.155 NT-Pro-B Natriuret Pep 5540 H 21530 H 02/26/20 03/09/20 03/20/20 05:35 04:00 06:10 Troponin I NT-Pro-B Natriuret Pep 60796 H 32766 H 08572 H Impressions: Hip/Pelvis X-Ray 02/08/20 00:00 IMPRESSION: No acute fracture. Severe degenerative changes of the left hip. Knee X-Ray 02/08/20 00:00 IMPRESSION: NEGATIVE STUDY OF THE RIGHT KNEE. NO RADIOGRAPHIC EVIDENCE OF ACUTE INJURY. Renal Ultrasound 02/21/20 00:00 IMPRESSION: Increased echogenicity of the renal parenchyma suggestive of underlying chronic medical renal disease. There is no hydronephrosis. There is a Ryan catheter within the urinary bladder. Head CT 03/08/20 08:56 IMPRESSION: MILD CHRONIC CHANGES OF ATROPHY AND MICROVASCULAR ISCHEMIA. NO ACUTE PROCESS. EVIDENCE OF ACUTE STROKE: NO. Chest CT 03/08/20 10:12 IMPRESSION: Extensive bilateral infiltrates. No pneumothorax. KUB X-Ray 03/10/20 00:00 IMPRESSION: Nonspecific bowel gas pattern. Esophagogastric tube tip and side- hole are within the stomach. Chest X-Ray 03/22/20 00:00 IMPRESSION: No change from 03/14/2020. All labs, radiographs, diagnostic studies and EKGs were personally reviewed: Yes In addition, reports of radiographic and diagnostic studies were read: Yes Assessment and Plan - Diagnosis (1) Acute respiratory failure due to COVID-19 Is this a current diagnosis for this admission?: Yes Plan: He is back on trach collar. Need to test again for COVID in the next week. (2) Acute on chronic diastolic CHF (congestive heart failure) Is this a current diagnosis for this admission?: Yes Plan: Inactive. (3) Coronary artery disease Qualifiers: Coronary Disease-Associated Artery/Lesion type: unspecified vessel or lesion type [place] vs. transplanted heart: [place] heart Associated angina: with unspecified angina Qualified Code(s): I25.119 - Atherosclerotic heart disease of [place] coronary artery with unspecified angina pectoris Is this a current diagnosis for this admission?: Yes Plan: Inactive. (4) Elevated brain natriuretic peptide (BNP) level Is this a current diagnosis for this admission?: Yes Plan: Recheck level again. (5) Obesity (BMI 30-39.9) Is this a current diagnosis for this admission?: Yes Plan: Chronic (6) Anemia Qualifiers: Anemia type: iron deficiency Is this a current diagnosis for this admission?: Yes Plan: Stable with a Hgb of 8.8. (7) CKD (chronic kidney disease) stage 5, GFR less than 15 ml/min Is this a current diagnosis for this admission?: Yes Plan: Getting dialysis M/W/F (8) HTN (hypertension) Qualifiers: Hypertension type: essential hypertension Qualified Code(s): I10 - Essential (primary) hypertension Is this a current diagnosis for this admission?: Yes Plan: Controlled. (9) Polyneuropathy associated with critical illness Is this a current diagnosis for this admission?: Yes Plan: He is on an LTAC waiting list because of dialysis need. Plan Summary: Plan to keep on trach collar as long as possible. Critical Time Critical Time (minutes): 35 Level of Care: ICU Anticipated discharge: Acute Rehab Anticipated DC Timeframe: Other -: 1. The care of a critical patient is a dynamic process. This note is a telephone services sales representative synopsis but static in nature. The timeframe for treatments given in order is not necessarily the actual time these treatments may have been done. 2. This patient requires critical care secondary to ongoing requirements for therapy not offered or safe outside the critical care environment. Transfer to a lower level of care will result in altered life or limb morbidity and mortality. 3. Multidisciplinary rounds completed. 4. ABCDE bundle addressed.
[2020-03-24] MEDS: AMINO AC/PROTEIN HYDR/WHEY PRO 11 GM/45 ML PKT NG SCH ×4 (11:14→21:51)
[2020-03-24] MEDS: FUROSEMIDE INJ/PF 40 MG/4 ML SDV IV SCH ×2 (11:14→21:50)
[2020-03-24] MEDS: DIGOXIN INJ 0.5 MG/2 ML AMPULE IV SCH (11:15)
[2020-03-24] MEDS: PANTOPRAZOLE SODIUM 40 MG VIAL IV SCH (11:15)
[2020-03-24] MEDS: HYDRALAZINE HCL 25 MG TABLET NG SCH ×2 (11:15→21:51)
[2020-03-24] MEDS: LABETALOL HCL 200 MG TABLET NG SCH ×2 (11:16→21:51)
[2020-03-24] MEDS: CHOLECALCIFEROL (D3) 1,000 UNIT (25 MCG) TABLET NG SCH ×3 (11:16→17:31)
[2020-03-24] MEDS: APIXABAN 2.5 MG TABLET NG SCH ×2 (11:16→17:31)
[2020-03-24] MEDS: HYDROMORPHONE HCL INJ/PF 2 MG/ML AMPULE IV PRN (15:14)
[2020-03-24] MEDS ORDERED: ACETAMINOPHEN 325 MG TABLET ONE (18:23)
[2020-03-25] MEDS: ACETAMINOPHEN SOLN 325 MG/10.15 ML UDCUP PO PRN ×3 (00:17→13:00)
[2020-03-25] MEDS: LEVALBUTEROL HCL NEB 1.25 MG/3 ML AMPUL NEB SCH ×4 (02:18→20:20)
[2020-03-25] MEDS: HYDROMORPHONE HCL INJ/PF 2 MG/ML AMPULE IV PRN (04:20)
[2020-03-25] MEDS ORDERED: HEPARIN SOD (PORCINE) 1,000 UNIT/ML 10 ML VIAL IV PRN (05:00)
[2020-03-25] MEDS ORDERED: EPOETIN ALFA-EPBX 2,000 UNIT, EPOETIN ALFA-EPBX 3,000 UNIT, EPOETIN ALFA-EPBX 20,000 UN... IV PRN ×4 (05:00)
[2020-03-25] MEDS ORDERED: NORMAL SALINE 1000 ML 1,000 ML IV PRN (05:00)
[2020-03-25 05:13] LABS: ABSOLUTE EOSINOPHILS # (AUTO) 0.2 10^3/uL (0.0-0.6); ABSOLUTE LYMPHOCYTES (AUTO) 0.6 10^3/uL (0.5-4.7); ABSOLUTE NEUT (AUTO) 9.9 10^3/uL (1.7-8.2); BASOPHILS % (AUTO) 0.1 % (0-2); EOSINOPHILS % (AUTO) 1.3 % (0-6); HEMATOCRIT 24.5 % (37.9-51.0); LYMPHOCYTES % (AUTO) 5.3 % (13-45); MEAN CORPUSCULAR HEMOGLOBIN 30.3 pg (27.0-33.4); MEAN CORPUSCULAR HGB CONC 31.8 g/dL (32.0-36.0); MEAN CORPUSCULAR VOLUME 95 fl (80-97); MONOCYTES % (AUTO) 8.6 % (3-13); PLATELET COUNT 217 10^3/uL (150-450); RED BLOOD COUNT 2.57 10^6/uL (4.35-5.55); RED CELL DISTRIBUTION WIDTH 19.9 % (11.5-14.0); SEGMENTED NEUTROPHILS % (AUTO) 84.7 % (42-78); TOTAL CELLS COUNTED % (AUTO) 100 %; WHITE BLOOD COUNT 11.7 10^3/uL (4.0-10.5)
[2020-03-25 05:26] LABS: HEMOGLOBIN 7.8 g/dL (13.5-17.0)
[2020-03-25 06:37] LABS: ANION GAP 11 (5-19); BLOOD UREA NITROGEN 75 mg/dL (7-20); CALCIUM 7.4 mg/dL (8.4-10.2); CARBON DIOXIDE 25 mmol/L (22-30); CHLORIDE 100 mmol/L (98-107); GLUCOSE 133 mg/dL (75-110); PHOSPHORUS 4.7 mg/dL (2.5-4.5); POTASSIUM 3.6 mmol/L (3.6-5.0)
--- NOTE | 2020-03-25 08:45 | PDOC CRITICAL CARE PROG REPORT ---
General Date:: 03/25/20 ICU Day:: 42 Hospital Day:: 46 Resuscitation Status: Full Code Events in the past 12 to 24 Hours:: He needed the ventilator for support at night. Review of systems relevant to events:: Pulmonary, neurologic. Reason for ICU Addmission:: On trach collar at 40%. Needed vent overnight. - Medications: Medications reviewed and adjusted accordingly: Yes Vasopressors:: None Sedation:: None Physical Exam Vital Signs: Temp Pulse Resp BP Pulse Ox 101.5 F H 87 28 H 123/42 L 97 03/25/20 08:00 03/25/20 08:01 03/25/20 08:01 03/25/20 08:00 03/25/20 08:01 Pulse Oximeter Nocturnal Start: 02/08/20 13:55 Freq: RTQ4 Status: Complete Protocol: Document 02/09/20 04:00 LRO (Rec: 02/09/20 05:38 LRO [email or web address]) Nocturnal Pulse Oximetry Equipment Usage Equipment in Use Oxygen Delivery Method (includes room Room Air air) O2 Sat by Pulse Oximetry (92-100) 95 Continuous SpO2 Machine # 2 Pulse Oximeter Nocturnal Start: 02/10/20 11:39 Freq: RTQ4 Status: Complete Protocol: Document 02/11/20 04:06 PMU (Rec: 02/11/20 05:06 PMU [email or web address]) Nocturnal Pulse Oximetry Equipment Usage Equipment in Use Oxygen Delivery Method (includes room Room Air air) O2 Sat by Pulse Oximetry (92-100) 93 Continuous SpO2 Machine # N2 Intake & Output 03/24/20 03/25/20 03/26/20 06:59 06:59 06:59 Intake Total 1000 90 Output Total 2487 251 5 Balance -1487 -161 -5 Weight 106 kg 105.2 kg Weight/Height Weight 105.2 kg Height 5 ft 9 in General appearance: PRESENT: no acute distress, obese Head exam: PRESENT: atraumatic, normocephalic Eye exam: PRESENT: conjunctiva pink, EOMI, PERRLA. ABSENT: scleral icterus Ear exam: PRESENT: normal external ear exam Mouth exam: PRESENT: moist, tongue midline Respiratory exam: PRESENT: clear to auscultation kevyn, crackles - At bases.. ABSENT: rales, rhonchi, wheezes Cardiovascular exam: PRESENT: RRR. ABSENT: diastolic murmur, rubs, systolic murmur GI/Abdominal exam: PRESENT: normal bowel sounds, soft. ABSENT: distended, guarding, mass, organolmegaly, rebound, tenderness Rectal exam: PRESENT: deferred Gentrourinary exam: PRESENT: indwelling catheter Extremities exam: PRESENT: other - Heel ulcers dressed Musculoskeletal exam: PRESENT: normal inspection Neurological exam: PRESENT: alert, awake, CN II-XII grossly intact, other - Too weak to move anything besides R hand and forearm. Skin exam: PRESENT: other - Sacral decubitus debrided. Tubes/Lines: PRESENT: Endotracheal Tube, Nasogastic Tube Laboratory/Radiographs Laboratory Results: 03/25/20 04:35 03/25/20 05:35 03/25/20 03/25/20 04:35 05:35 WBC 11.7 H RBC 2.57 L Hgb 7.8 L Hct 24.5 L MCV 95 MCH 30.3 MCHC 31.8 L RDW 19.9 H Plt Count 217 Seg Neutrophils % 84.7 H Sodium 135.7 L Potassium 3.6 Chloride 100 Carbon Dioxide 25 Anion Gap 11 BUN 75 H Creatinine 2.53 H Est GFR ( Amer) 30 L Glucose 133 H Calcium 7.4 L Phosphorus 4.7 H Magnesium 1.8 02/08/20 02/08/20 02/21/20 09:49 13:11 04:50 Troponin I 0.160 0.155 NT-Pro-B Natriuret Pep 5540 H 24138 H 02/26/20 03/09/20 03/20/20 05:35 04:00 06:10 Troponin I NT-Pro-B Natriuret Pep 62821 H 41844 H 02317 H Impressions: Hip/Pelvis X-Ray 02/08/20 00:00 IMPRESSION: No acute fracture. Severe degenerative changes of the left hip. Knee X-Ray 02/08/20 00:00 IMPRESSION: NEGATIVE STUDY OF THE RIGHT KNEE. NO RADIOGRAPHIC EVIDENCE OF ACUTE INJURY. Renal Ultrasound 02/21/20 00:00 IMPRESSION: Increased echogenicity of the renal parenchyma suggestive of underlying chronic medical renal disease. There is no hydronephrosis. There is a Ryan catheter within the urinary bladder. Head CT 03/08/20 08:56 IMPRESSION: MILD CHRONIC CHANGES OF ATROPHY AND MICROVASCULAR ISCHEMIA. NO ACUTE PROCESS. EVIDENCE OF ACUTE STROKE: NO. Chest CT 03/08/20 10:12 IMPRESSION: Extensive bilateral infiltrates. No pneumothorax. KUB X-Ray 03/10/20 00:00 IMPRESSION: Nonspecific bowel gas pattern. Esophagogastric tube tip and side- hole are within the stomach. All labs, radiographs, diagnostic studies and EKGs were personally reviewed: Yes In addition, reports of radiographic and diagnostic studies were read: Yes Assessment and Plan - Diagnosis (1) Acute respiratory failure due to COVID-19 Is this a current diagnosis for this admission?: Yes Plan: Will retest soon. (2) Acute on chronic diastolic CHF (congestive heart failure) Is this a current diagnosis for this admission?: Yes Plan: Inactive (3) Coronary artery disease Qualifiers: Coronary Disease-Associated Artery/Lesion type: unspecified vessel or lesion type [place] vs. transplanted heart: [place] heart Associated angina: with unspecified angina Qualified Code(s): I25.119 - Atherosclerotic heart disease of [place] coronary artery with unspecified angina pectoris Is this a current diagnosis for this admission?: Yes Plan: Inactive (4) Elevated brain natriuretic peptide (BNP) level Is this a current diagnosis for this admission?: Yes Plan: Recheck level. (5) Obesity (BMI 30-39.9) Is this a current diagnosis for this admission?: Yes Plan: Chronic (6) Anemia Qualifiers: Anemia type: iron deficiency Is this a current diagnosis for this admission?: Yes Plan: No sign of bleeding but his Hgb is 7.8. Does not need transfusion yet. (7) CKD (chronic kidney disease) stage 5, GFR less than 15 ml/min Is this a current diagnosis for this admission?: Yes Plan: HD M/W/F. (8) HTN (hypertension) Qualifiers: Hypertension type: essential hypertension Qualified Code(s): I10 - Essential (primary) hypertension Is this a current diagnosis for this admission?: Yes Plan: Controlled (9) Polyneuropathy associated with critical illness Is this a current diagnosis for this admission?: Yes Plan: Severe and shows no sign yet of improvement. (10) Fever Is this a current diagnosis for this admission?: Yes Plan: He has had a temp of 101-102 for a day. Source not clear. CXR actually looks improved. Will recheck cultures again. Plan Summary: This fever does not look like a VAP. Reculture. Sinusitis from NG is possible but no pain or drainage. Critical Time Critical Time (minutes): 40 Level of Care: ICU Anticipated discharge: Acute Rehab Anticipated DC Timeframe: Other -: 1. The care of a critical patient is a dynamic process. This note is a quality control representative synopsis but static in nature. The timeframe for treatments given in order is not necessarily the actual time these treatments may have been done. 2. This patient requires critical care secondary to ongoing requirements for therapy not offered or safe outside the critical care environment. Transfer to a lower level of care will result in altered life or limb morbidity and mortality. 3. Multidisciplinary rounds completed. 4. ABCDE bundle addressed.
--- NOTE | 2020-03-25 09:02 | RADIOLOGY REPORT (SQ) ---
EXAM DESCRIPTION: CHEST SINGLE VIEW IMAGES COMPLETED DATE/TIME: 03/25/2020 8:00 am REASON FOR STUDY: Pneumonia COMPARISON: 03/22/2020 NUMBER OF VIEWS: One view. TECHNIQUE: Single frontal radiographic image of the chest acquired. LIMITATIONS: None. FINDINGS: LUNGS AND PLEURA: Bilateral airspace disease relative sparing of the apices. Better defin ition of the left heart border. No pneumothorax. MEDIASTINUM AND HEART: Stable heart size and mediastinal structures. SUPPORT DEVICES: Appropriate location without change. BONY STRUCTURES: No acute findings. HARDWARE: None. OTHER: No other significant finding. IMPRESSION: Slight improvement. No pneumothorax. Reading location - IP/workstation name: [email or web address]
[2020-03-25] MEDS: PANTOPRAZOLE SODIUM 40 MG VIAL IV SCH (10:26)
[2020-03-25] MEDS: LABETALOL HCL 200 MG TABLET NG SCH ×2 (10:26→22:00)
[2020-03-25] MEDS: FUROSEMIDE INJ/PF 40 MG/4 ML SDV IV SCH ×2 (10:26→22:00)
[2020-03-25] MEDS: CHOLECALCIFEROL (D3) 1,000 UNIT (25 MCG) TABLET NG SCH ×3 (10:26→18:49)
[2020-03-25] MEDS: DIGOXIN INJ 0.5 MG/2 ML AMPULE IV SCH (10:27)
[2020-03-25] MEDS: HYDRALAZINE HCL 25 MG TABLET NG SCH ×2 (10:27→22:00)
[2020-03-25] MEDS: APIXABAN 2.5 MG TABLET NG SCH (10:27)
[2020-03-25] MEDS: CALCITRIOL 1 MCG/ML ORAL SOLN 15 ML NG SCH (10:29)
[2020-03-25] MEDS: AMINO AC/PROTEIN HYDR/WHEY PRO 11 GM/45 ML PKT NG SCH ×4 (10:29→22:01)
--- NOTE | 2020-03-25 12:29 | PDOC PROGRESS REPORT ---
Subjective Progress Note for:: 03/25/20 Subjective:: I am seeing the patient during dialysis this afternoon. Clinical condition remains unchanged. He still on the trach collar. He does have a spike of temperature up to 101.3 though. He continues to be anuric with urine output only 51 mL in the last 24 hours. He is tolerating dialysis so far. Reason For Visit: WEAKNESS,ELEVATED TROPONIN,CHF Physical Exam Vital Signs: Temp Pulse Resp BP Pulse Ox 101.3 F H 89 20 119/35 L 92 03/25/20 11:45 03/25/20 11:45 03/25/20 12:00 03/25/20 11:51 03/25/20 12:00 Pulse Oximeter Nocturnal Start: 02/08/20 13:55 Freq: RTQ4 Status: Complete Protocol: Document 02/09/20 04:00 LRO (Rec: 02/09/20 05:38 LRO [id number]) Nocturnal Pulse Oximetry Equipment Usage Equipment in Use Oxygen Delivery Method (includes room Room Air air) O2 Sat by Pulse Oximetry (92-100) 95 Continuous SpO2 Machine # 2 Pulse Oximeter Nocturnal Start: 02/10/20 11:39 Freq: RTQ4 Status: Complete Protocol: Document 02/11/20 04:06 PMU (Rec: 02/11/20 05:06 PMU [email or web address]) Nocturnal Pulse Oximetry Equipment Usage Equipment in Use Oxygen Delivery Method (includes room Room Air air) O2 Sat by Pulse Oximetry (92-100) 93 Continuous SpO2 Machine # N2 Intake & Output 03/24/20 03/25/20 03/26/20 06:59 06:59 06:59 Intake Total 1000 90 120 Output Total 2487 251 5 Balance -1487 -161 115 Weight 106 kg 105.2 kg Vitals during dialysis: Blood pressure 134/33, heart rate of 75, blood flow rate 300 mils per minute and dialysate flow rate of 800 mL/min. Exam: Limited exam due to COVID-19 infection on isolation. General appearance: PRESENT: On trach collar Head exam: PRESENT: atraumatic, normocephalic Eye exam: PRESENT: conjunctiva pale, PERRLA. ABSENT: scleral icterus Respiratory exam: PRESENT: Diminished breath sounds. ABSENT: crackles, rales, rhonchi, unlabored, wheezes Extremities exam: +1 bilateral lower extremity pitting edema Neurological exam: PRESENT: alert, awake, Skin exam: PRESENT: dry, warm, Cardiovascular exam: PRESENT: +S1, +S2 GI/Abdominal exam: PRESENT: normal bowel sounds, soft. ABSENT: organomegaly, tenderness Results Laboratory Results: 03/25/20 04:35 03/25/20 05:35 03/25/20 03/25/20 04:35 05:35 WBC 11.7 H RBC 2.57 L Hgb 7.8 L Hct 24.5 L MCV 95 MCH 30.3 MCHC 31.8 L RDW 19.9 H Plt Count 217 Seg Neutrophils % 84.7 H Sodium 135.7 L Potassium 3.6 Chloride 100 Carbon Dioxide 25 Anion Gap 11 BUN 75 H Creatinine 2.53 H Est GFR ( Amer) 30 L Glucose 133 H Calcium 7.4 L Phosphorus 4.7 H Magnesium 1.8 02/08/20 02/08/20 02/21/20 09:49 13:11 04:50 Troponin I 0.160 0.155 NT-Pro-B Natriuret Pep 5540 H 40889 H 02/26/20 03/09/20 03/20/20 05:35 04:00 06:10 Troponin I NT-Pro-B Natriuret Pep 53387 H 50253 H 02652 H Impressions: Hip/Pelvis X-Ray 02/08/20 00:00 IMPRESSION: No acute fracture. Severe degenerative changes of the left hip. Knee X-Ray 02/08/20 00:00 IMPRESSION: NEGATIVE STUDY OF THE RIGHT KNEE. NO RADIOGRAPHIC EVIDENCE OF ACUTE INJURY. Renal Ultrasound 02/21/20 00:00 IMPRESSION: Increased echogenicity of the renal parenchyma suggestive of underlying chronic medical renal disease. There is no hydronephrosis. There is a Ryan catheter within the urinary bladder. Head CT 03/08/20 08:56 IMPRESSION: MILD CHRONIC CHANGES OF ATROPHY AND MICROVASCULAR ISCHEMIA. NO ACUTE PROCESS. EVIDENCE OF ACUTE STROKE: NO. Chest CT 03/08/20 10:12 IMPRESSION: Extensive bilateral infiltrates. No pneumothorax. KUB X-Ray 03/10/20 00:00 IMPRESSION: Nonspecific bowel gas pattern. Esophagogastric tube tip and side- hole are within the stomach. Chest X-Ray 03/25/20 00:00 IMPRESSION: Slight improvement. No pneumothorax. Assessment & Plan - Diagnosis (1) Acute kidney injury superimposed on chronic kidney disease Is this a current diagnosis for this admission?: Yes Plan: Patient is still oliguric, requiring renal replacement therapy. Patient likely to have ATN in the background of cardiomyopathy with ejection fraction of 25 to 30% and grade 3 diastolic dysfunction. Continue renal replacement therapy support. We will do dialysis today for 3.0 hours, using the patient's dialysis catheter, with 3 potassium bath, blood flow rate of 300 mL per minute, dialysate flow rate of 800 mL per minute, ultrafiltration 2 L as tolerated, no heparin and Procrit with 25,000 units during dialysis intravenously. Patient is currently being monitored throughout dialysis treatment. In preparation for LTAC placement, surgery consulted for PermCath placement. I spoke to Dr. Talley and he stated that he will place the PermCath right before transfer to LTAC. (2) Acute respiratory failure due to COVID-19 Is this a current diagnosis for this admission?: Yes Plan: Per vfx artist. On ventilator via trach. (3) Hypocalcemia Is this a current diagnosis for this admission?: Yes Plan: Currently on calcitriol , and increased dose of vitamin D. Now within normal limits. (4) Anemia Qualifiers: Anemia type: iron deficiency Is this a current diagnosis for this admission?: Yes Plan: Status post EGD showing only gastric erosions. Patient has had multiple blood transfusions. Currently on Retacrit during dialysis. (5) Atrial fibrillation Qualifiers: Atrial fibrillation type: persistent (not longstanding) Qualified Code(s): I48.19 - Other persistent atrial fibrillation; I48.1 - Persistent atrial fibrillation Is this a current diagnosis for this admission?: Yes Plan: Previously on diltiazem drip. Now on IV digoxin. (6) Hypoalbuminemia Is this a current diagnosis for this admission?: Yes Plan: Chronic and persistent. (7) COVID-19 virus infection Is this a current diagnosis for this admission?: Yes Plan: Management per vfx artist. Repeat testing sent on 03/05 positive. (8) Hyponatremia Is this a current diagnosis for this admission?: Yes Plan: Due to hypervolemic state. Mild and stable.. (9) MRSA pneumonia Qualifiers: Laterality: bilateral Lung location: unspecified part of lung Qualified Code(s): J15.212 - Pneumonia due to Methicillin resistant Staphylococcus aureus Is this a current diagnosis for this admission?: Yes Plan: Completed treatment with cefepime and doxycycline. (10) Gram negative sepsis Is this a current diagnosis for this admission?: Yes Plan: Resolved. (11) Nonischemic cardiomyopathy Is this a current diagnosis for this admission?: Yes (12) Decubitus ulcer of sacral region, unstageable Is this a current diagnosis for this admission?: Yes Plan: For surgical debridement today. (13) Elevated liver enzymes Is this a current diagnosis for this admission?: Yes (14) Critical illness polyneuropathy Is this a current diagnosis for this admission?: Yes - Time Time with patient: 15-25 minutes
[2020-03-25] MEDS: LINEZOLID 600 MG/300 ML RTUPB IV SCH ×2 (13:47→22:00)
[2020-03-25 15:20] LABS: C DIFFICILE GDH NEGATIVE (NEGATIVE)
--- NOTE | 2020-03-25 18:17 | Operative Report ---
Nonrecallable Operative Report DATE OF SURGERY: 03/25/20 PREOPERATIVE DIAGNOSIS: worsening sacral decubitus ulcer POSTOPERATIVE DIAGNOSIS: same as above with necrotic fat and sacral fascia OPERATION: sharp, excisional debridement of skin, fat, fascia of the sacral decubitus ulcer. (12 x 12 cm) SURGEON: SWATI GUILLEN ANESTHESIA: Other - trach, on vent TISSUE REMOVED OR ALTERED: necrotic skin, fat, sacral fascia COMPLICATIONS: worsening of his sacral decubitus ulcer ESTIMATED BLOOD LOSS: minimal PROCEDURE: implants: 4x4 gauze Procedure in-detail. The patient was rolled into the left lateral decubitus position. The wound was inspected. There is progression of the necrosis within the sacral wound. With scissors, necrotic skin, fat, and sacral fascia was debrided away sharply and excisionally . The wound was the packed with a Kerlix. The procedure was at that time concluded. Cond: critical in ICU
[2020-03-25] MEDS: CEFEPIME 1 GM/D5W RTU 1 GM/50 ML RTUPB IV SCH (18:48)
[2020-03-26] MEDS: LEVALBUTEROL HCL NEB 1.25 MG/3 ML AMPUL NEB SCH ×4 (03:02→20:53)
[2020-03-26] MEDS: ACETAMINOPHEN SOLN 325 MG/10.15 ML UDCUP PO PRN (04:47)
[2020-03-26] MEDS: APIXABAN 2.5 MG TABLET NG SCH ×3 (06:05→17:09)
[2020-03-26 06:20] LABS: HEMATOCRIT 21.9 % (37.9-51.0); MEAN CORPUSCULAR HEMOGLOBIN 30.2 pg (27.0-33.4); MEAN CORPUSCULAR HGB CONC 31.7 g/dL (32.0-36.0); MEAN CORPUSCULAR VOLUME 95 fl (80-97); PLATELET COUNT 171 10^3/uL (150-450); RED BLOOD COUNT 2.29 10^6/uL (4.35-5.55); RED CELL DISTRIBUTION WIDTH 19.3 % (11.5-14.0)
[2020-03-26 06:23] LABS: HEMOGLOBIN 6.9 g/dL (13.5-17.0)
[2020-03-26] MEDS: LINEZOLID 600 MG/300 ML RTUPB IV SCH ×2 (09:31→21:48)
[2020-03-26] MEDS ORDERED: NORMAL SALINE 250 ML IV PRN ×2 (09:31)
[2020-03-26] MEDS: CHOLECALCIFEROL (D3) 1,000 UNIT (25 MCG) TABLET NG SCH ×3 (09:32→17:11)
[2020-03-26] MEDS: PANTOPRAZOLE SODIUM 40 MG VIAL IV SCH (09:32)
[2020-03-26] MEDS: FUROSEMIDE INJ/PF 40 MG/4 ML SDV IV SCH ×2 (09:33→21:48)
[2020-03-26] MEDS: DIGOXIN INJ 0.5 MG/2 ML AMPULE IV SCH (09:33)
[2020-03-26] MEDS: HYDRALAZINE HCL 25 MG TABLET NG SCH ×2 (09:33→21:49)
[2020-03-26] MEDS: LABETALOL HCL 200 MG TABLET NG SCH ×2 (09:34→21:49)
[2020-03-26] MEDS: AMINO AC/PROTEIN HYDR/WHEY PRO 11 GM/45 ML PKT NG SCH ×4 (09:34→21:48)
[2020-03-26] MEDS: CALCITRIOL 1 MCG/ML ORAL SOLN 15 ML NG SCH (09:35)
--- NOTE | 2020-03-26 16:01 | PDOC CRITICAL CARE PROG REPORT ---
General Date:: 03/26/20 Resuscitation Status: Full Code Events in the past 12 to 24 Hours:: He is less responsive. Review of systems relevant to events:: Respiratory, neurologic Reason for ICU Addmission:: On trach collar at 40%. Infected sacral wound. - Medications: Medications reviewed and adjusted accordingly: Yes Vasopressors:: None Sedation:: None Physical Exam Vital Signs: Temp Pulse Resp BP Pulse Ox 101.1 F H 81 20 153/49 H 100 03/26/20 12:00 03/26/20 14:11 03/26/20 14:30 03/26/20 14:00 03/26/20 15:45 Pulse Oximeter Nocturnal Start: 02/08/20 13:55 Freq: RTQ4 Status: Complete Protocol: Document 02/09/20 04:00 LRO (Rec: 02/09/20 05:38 LRO [id number]) Nocturnal Pulse Oximetry Equipment Usage Equipment in Use Oxygen Delivery Method (includes room Room Air air) O2 Sat by Pulse Oximetry (92-100) 95 Continuous SpO2 Machine # 2 Pulse Oximeter Nocturnal Start: 02/10/20 11:39 Freq: RTQ4 Status: Complete Protocol: Document 02/11/20 04:06 PMU (Rec: 02/11/20 05:06 PMU [email or web address]) Nocturnal Pulse Oximetry Equipment Usage Equipment in Use Oxygen Delivery Method (includes room Room Air air) O2 Sat by Pulse Oximetry (92-100) 93 Continuous SpO2 Machine # N2 Intake & Output 03/25/20 03/26/20 03/27/20 06:59 06:59 06:59 Intake Total 90 1070 Output Total 251 309 0 Balance -161 761 0 Weight 105.2 kg 104.3 kg Weight/Height Weight 104.3 kg Height 5 ft 9 in General appearance: PRESENT: no acute distress, obese Head exam: PRESENT: atraumatic, normocephalic Eye exam: PRESENT: conjunctiva pink, EOMI, PERRLA. ABSENT: scleral icterus Ear exam: PRESENT: normal external ear exam Mouth exam: PRESENT: moist, tongue midline Neck exam: PRESENT: tracheostomy Respiratory exam: PRESENT: clear to auscultation kevyn. ABSENT: rales, rhonchi, wheezes Cardiovascular exam: PRESENT: RRR. ABSENT: diastolic murmur, rubs, systolic murmur GI/Abdominal exam: PRESENT: normal bowel sounds, soft. ABSENT: distended, guarding, mass, organolmegaly, rebound, tenderness Rectal exam: PRESENT: deferred Extremities exam: PRESENT: +1 edema Musculoskeletal exam: PRESENT: normal inspection Neurological exam: PRESENT: altered Skin exam: PRESENT: other - Large unstagable sacral decubitus ulcer debrided twice in last few days. Tubes/Lines: PRESENT: Other Laboratory/Radiographs Laboratory Results: 03/26/20 05:57 03/25/20 05:35 03/26/20 03/26/20 05:57 10:24 WBC 14.0 H RBC 2.29 L Hgb 6.9 L Hct 21.9 L MCV 95 MCH 30.2 MCHC 31.7 L RDW 19.3 H Plt Count 171 Blood Type O POSITIVE Antibody Screen NEGATIVE 03/25/20 13:31 Blood Blood Culture (PCR) - Final Enterobacter Cloacae Complex 02/08/20 02/08/20 02/21/20 09:49 13:11 04:50 Troponin I 0.160 0.155 NT-Pro-B Natriuret Pep 5540 H 63569 H 02/26/20 03/09/20 03/20/20 05:35 04:00 06:10 Troponin I NT-Pro-B Natriuret Pep 11968 H 18519 H 45930 H Impressions: Hip/Pelvis X-Ray 02/08/20 00:00 IMPRESSION: No acute fracture. Severe degenerative changes of the left hip. Knee X-Ray 02/08/20 00:00 IMPRESSION: NEGATIVE STUDY OF THE RIGHT KNEE. NO RADIOGRAPHIC EVIDENCE OF ACUTE INJURY. Renal Ultrasound 02/21/20 00:00 IMPRESSION: Increased echogenicity of the renal parenchyma suggestive of underlying chronic medical renal disease. There is no hydronephrosis. There is a Ryan catheter within the urinary bladder. Head CT 03/08/20 08:56 IMPRESSION: MILD CHRONIC CHANGES OF ATROPHY AND MICROVASCULAR ISCHEMIA. NO ACUTE PROCESS. EVIDENCE OF ACUTE STROKE: NO. Chest CT 03/08/20 10:12 IMPRESSION: Extensive bilateral infiltrates. No pneumothorax. KUB X-Ray 03/10/20 00:00 IMPRESSION: Nonspecific bowel gas pattern. Esophagogastric tube tip and side- hole are within the stomach. Chest X-Ray 03/25/20 00:00 IMPRESSION: Slight improvement. No pneumothorax. All labs, radiographs, diagnostic studies and EKGs were personally reviewed: Yes In addition, reports of radiographic and diagnostic studies were read: Yes Assessment and Plan - Diagnosis (1) Acute respiratory failure due to COVID-19 Is this a current diagnosis for this admission?: Yes Plan: He is still on trach collar with good O2 saturations. (2) Acute on chronic diastolic CHF (congestive heart failure) Is this a current diagnosis for this admission?: Yes Plan: Inactive. (3) Coronary artery disease Qualifiers: Coronary Disease-Associated Artery/Lesion type: unspecified vessel or lesion type [place] vs. transplanted heart: [place] heart Associated angina: with unspecified angina Qualified Code(s): I25.119 - Atherosclerotic heart disease of [place] coronary artery with unspecified angina pectoris Is this a current diagnosis for this admission?: Yes Plan: Inactive. (4) Elevated brain natriuretic peptide (BNP) level Is this a current diagnosis for this admission?: Yes (5) Obesity (BMI 30-39.9) Is this a current diagnosis for this admission?: Yes Plan: No change (6) Anemia Qualifiers: Anemia type: iron deficiency Is this a current diagnosis for this admission?: Yes Plan: Hgb 6.9. He is to get 1 unit PRBCs on HD tomorrow. Anemia of acute illness, renal disease and inflammation. (7) CKD (chronic kidney disease) stage 5, GFR less than 15 ml/min Is this a current diagnosis for this admission?: Yes Plan: Dialysis tomorrow (8) HTN (hypertension) Qualifiers: Hypertension type: essential hypertension Qualified Code(s): I10 - Essential (primary) hypertension Is this a current diagnosis for this admission?: Yes Plan: Controlled (9) Polyneuropathy associated with critical illness Is this a current diagnosis for this admission?: Yes Plan: He is still too weak to move. (10) Fever Is this a current diagnosis for this admission?: Yes Plan: Cultures are not back yet but the large decubitus is a very possible source as GNR in wound and enterobacter in the blood. I've spoken to wound care team and it likely not a [place] ulcer. Plan Summary: Prognosis much worse in the last 2 days. Critical Time Critical Time (minutes): 40 Level of Care: ICU Anticipated discharge: Hospice Anticipated DC Timeframe: Other -: 1. The care of a critical patient is a dynamic process. This note is a denial management representative synopsis but static in nature. The timeframe for treatments given in order is not necessarily the actual time these treatments may have been done. 2. This patient requires critical care secondary to ongoing requirements for therapy not offered or safe outside the critical care environment. Transfer to a lower level of care will result in altered life or limb morbidity and mortality. 3. Multidisciplinary rounds completed. 4. ABCDE bundle addressed.
[2020-03-26] MEDS: CEFEPIME 1 GM/D5W RTU 1 GM/50 ML RTUPB IV SCH (17:10)
[2020-03-26] MEDS: COLLAGENASE CLOSTRIDIUM HIST. OINT 30 GM TOP SCH (21:48)
[2020-03-27] MEDS: LEVALBUTEROL HCL NEB 1.25 MG/3 ML AMPUL NEB SCH ×4 (01:59→21:00)
[2020-03-27 03:37] LABS: HEMATOCRIT 21.1 % (37.9-51.0); MEAN CORPUSCULAR HEMOGLOBIN 30.3 pg (27.0-33.4); MEAN CORPUSCULAR HGB CONC 32.3 g/dL (32.0-36.0); MEAN CORPUSCULAR VOLUME 94 fl (80-97); PLATELET COUNT 159 10^3/uL (150-450); RED BLOOD COUNT 2.25 10^6/uL (4.35-5.55); RED CELL DISTRIBUTION WIDTH 19.2 % (11.5-14.0); WHITE BLOOD COUNT 13.4 10^3/uL (4.0-10.5)
[2020-03-27 03:46] LABS: ANION GAP 8 (5-19); BLOOD UREA NITROGEN 65 mg/dL (7-20); CALCIUM 7.9 mg/dL (8.4-10.2); CARBON DIOXIDE 26 mmol/L (22-30); CHLORIDE 99 mmol/L (98-107); GLUCOSE 101 mg/dL (75-110)
[2020-03-27 03:56] LABS: POTASSIUM 3.1 mmol/L (3.6-5.0)
[2020-03-27 04:00] LABS: ABSOLUTE LYMPHOCYTES# (MANUAL) 0.7 10^3/uL (0.5-4.7); ABSOLUTE MONOCYTES # (MANUAL) 0.8 10^3/uL (0.1-1.4); BAND NEUTROPHILS % (MANUAL) 2 % (3-5); BASOPHILS % (MANUAL) 0 % (0-2); EOSINOPHILS % (MANUAL) 0 % (0-6); LYMPHOCYTES % (MANUAL) 5 % (13-45); MONOCYTES % (MANUAL) 6 % (3-13); SEGMENTED NEUTROPHILS % (MAN) 87 % (42-78); TOTAL CELLS COUNTED 100
[2020-03-27 04:02] LABS: ANISOCYTOSIS 2+; HEMOGLOBIN 6.8 g/dL (13.5-17.0); OVALOCYTES SLIGHT; PLATELET COMMENT ADEQUATE; POIKILOCYTOSIS SLIGHT; POLYCHROMASIA SLIGHT; TEAR DROP CELLS SLIGHT; TOXIC GRANULATION 1+
[2020-03-27] MEDS ORDERED: NORMAL SALINE 1000 ML 1,000 ML IV PRN (05:00)
[2020-03-27] MEDS ORDERED: EPOETIN ALFA-EPBX 30,000 UNIT in SYRINGE, DISPOSABLE, 1 EACH IV PRN (05:00)
[2020-03-27] MEDS ORDERED: HEPARIN SOD (PORCINE) 1,000 UNIT/ML 10 ML VIAL IV PRN (05:00)
--- NOTE | 2020-03-27 08:19 | PDOC CRITICAL CARE PROG REPORT ---
General Date:: 03/27/20 Ventilator Day:: 44 Hospital Day:: 46 Resuscitation Status: Full Code Events in the past 12 to 24 Hours:: Seems more awake. Review of systems relevant to events:: Pulmonary, CV, renal, ID Reason for ICU Addmission:: On trach collar at 40%. Infected sacral wound. - Medications: Medications reviewed and adjusted accordingly: Yes Vasopressors:: None Sedation:: None Physical Exam Vital Signs: Temp Pulse Resp BP Pulse Ox 99.4 F 76 19 121/40 L 99 03/27/20 08:02 03/27/20 08:02 03/27/20 08:02 03/27/20 08:02 03/27/20 08:02 Pulse Oximeter Nocturnal Start: 02/08/20 13:55 Freq: RTQ4 Status: Complete Protocol: Document 02/09/20 04:00 LRO (Rec: 02/09/20 05:38 LRO [email or web address]) Nocturnal Pulse Oximetry Equipment Usage Equipment in Use Oxygen Delivery Method (includes room Room Air air) O2 Sat by Pulse Oximetry (92-100) 95 Continuous SpO2 Machine # 2 Pulse Oximeter Nocturnal Start: 02/10/20 11:39 Freq: RTQ4 Status: Complete Protocol: Document 02/11/20 04:06 PMU (Rec: 02/11/20 05:06 PMU [email or web address]) Nocturnal Pulse Oximetry Equipment Usage Equipment in Use Oxygen Delivery Method (includes room Room Air air) O2 Sat by Pulse Oximetry (92-100) 93 Continuous SpO2 Machine # N2 Intake & Output 03/26/20 03/27/20 03/28/20 06:59 06:59 06:59 Intake Total 1070 1051 0 Output Total 309 300 Balance 761 751 0 Weight 104.3 kg 107.2 kg Weight/Height Weight 107.2 kg Height 5 ft 9 in General appearance: PRESENT: no acute distress, obese Head exam: PRESENT: atraumatic, normocephalic Eye exam: PRESENT: conjunctiva pink, EOMI, PERRLA. ABSENT: scleral icterus Ear exam: PRESENT: normal external ear exam Mouth exam: PRESENT: moist, tongue midline Respiratory exam: PRESENT: clear to auscultation kevyn. ABSENT: rales, rhonchi, wheezes Cardiovascular exam: PRESENT: RRR. ABSENT: diastolic murmur, rubs, systolic murmur GI/Abdominal exam: PRESENT: normal bowel sounds, soft. ABSENT: distended, guarding, mass, organolmegaly, rebound, tenderness Rectal exam: PRESENT: deferred Extremities exam: PRESENT: +1 edema Musculoskeletal exam: PRESENT: normal inspection Neurological exam: PRESENT: alert, altered, awake, CN II-XII grossly intact Skin exam: PRESENT: other - Sacral decubitus Tubes/Lines: PRESENT: Dialysis catheter, Nasogastic Tube, Other - Tracheotomy Laboratory/Radiographs Laboratory Results: 03/27/20 03:08 03/27/20 03:08 03/26/20 03/27/20 03/27/20 10:24 03:08 03:08 WBC 13.4 H RBC 2.25 L Hgb 6.8 L Hct 21.1 L MCV 94 MCH 30.3 MCHC 32.3 RDW 19.2 H Plt Count 159 Seg Neutrophils % Not Reportable Sodium 132.9 L Potassium 3.1 L Chloride 99 Carbon Dioxide 26 Anion Gap 8 BUN 65 H Creatinine 2.39 H Est GFR ( Amer) 33 L Glucose 101 Calcium 7.9 L Blood Type O POSITIVE Antibody Screen NEGATIVE 03/25/20 13:31 Blood Blood Culture (PCR) - Final Enterobacter Cloacae Complex 02/08/20 02/08/20 02/21/20 09:49 13:11 04:50 Troponin I 0.160 0.155 NT-Pro-B Natriuret Pep 5540 H 45508 H 02/26/20 03/09/20 03/20/20 05:35 04:00 06:10 Troponin I NT-Pro-B Natriuret Pep 67906 H 12747 H 42691 H Impressions: Hip/Pelvis X-Ray 02/08/20 00:00 IMPRESSION: No acute fracture. Severe degenerative changes of the left hip. Knee X-Ray 02/08/20 00:00 IMPRESSION: NEGATIVE STUDY OF THE RIGHT KNEE. NO RADIOGRAPHIC EVIDENCE OF ACUTE INJURY. Renal Ultrasound 02/21/20 00:00 IMPRESSION: Increased echogenicity of the renal parenchyma suggestive of underlying chronic medical renal disease. There is no hydronephrosis. There is a Ryan catheter within the urinary bladder. Head CT 03/08/20 08:56 IMPRESSION: MILD CHRONIC CHANGES OF ATROPHY AND MICROVASCULAR ISCHEMIA. NO ACUTE PROCESS. EVIDENCE OF ACUTE STROKE: NO. Chest CT 03/08/20 10:12 IMPRESSION: Extensive bilateral infiltrates. No pneumothorax. KUB X-Ray 03/10/20 00:00 IMPRESSION: Nonspecific bowel gas pattern. Esophagogastric tube tip and side- hole are within the stomach. Chest X-Ray 03/25/20 00:00 IMPRESSION: Slight improvement. No pneumothorax. All labs, radiographs, diagnostic studies and EKGs were personally reviewed: Yes In addition, reports of radiographic and diagnostic studies were read: Yes Assessment and Plan - Diagnosis (1) Acute respiratory failure due to COVID-19 Is this a current diagnosis for this admission?: Yes Plan: He is on PSV and will change to trach collar after HD (2) Acute on chronic diastolic CHF (congestive heart failure) Is this a current diagnosis for this admission?: Yes Plan: Inactive. (3) Coronary artery disease Qualifiers: Coronary Disease-Associated Artery/Lesion type: unspecified vessel or lesion type [place] vs. transplanted heart: [place] heart Associated angina: with unspecified angina Qualified Code(s): I25.119 - Atherosclerotic heart disease of [place] coronary artery with unspecified angina pectoris Is this a current diagnosis for this admission?: Yes Plan: Inactive. (4) Elevated brain natriuretic peptide (BNP) level Is this a current diagnosis for this admission?: Yes (5) Obesity (BMI 30-39.9) Is this a current diagnosis for this admission?: Yes Plan: Chronic (6) Anemia Qualifiers: Anemia type: iron deficiency Is this a current diagnosis for this admission?: Yes Plan: Getting 1 unit of PRBCs on HD (7) CKD (chronic kidney disease) stage 5, GFR less than 15 ml/min Is this a current diagnosis for this admission?: Yes Plan: Dialysis today for 3 hours. (8) HTN (hypertension) Qualifiers: Hypertension type: essential hypertension Qualified Code(s): I10 - Es sential (primary) hypertension Is this a current diagnosis for this admission?: Yes Plan: Controlled. (9) Polyneuropathy associated with critical illness Is this a current diagnosis for this admission?: Yes Plan: Still a major limiting factor in his recovery (10) Fever Is this a current diagnosis for this admission?: Yes Plan: Likely due to sacral decubitus. More awake and temp decreased. Plan Summary: Dialysis for 3 hours with transfusion. Then trach collar. Critical Time Critical Time (minutes): 35 Level of Care: ICU Anticipated discharge: Acute Rehab Anticipated DC Timeframe: Other -: 1. The care of a critical patient is a dynamic process. This note is a pharmaceutical service representative synopsis but static in nature. The timeframe for treatments given in order is not necessarily the actual time these treatments may have been done. 2. This patient requires critical care secondary to ongoing requirements for therapy not offered or safe outside the critical care environment. Transfer to a lower level of care will result in altered life or limb morbidity and mortality. 3. Multidisciplinary rounds completed. 4. ABCDE bundle addressed.
--- NOTE | 2020-03-27 10:58 | PDOC PROGRESS REPORT ---
Subjective Progress Note for:: 03/27/20 Reason For Visit: Patient seen today on dialysis. Undergoing dialysis without any issues.Patient seems more awake and responsive. Vital signs are stable. Patient hemoglobin has been low and has received 1 pint of blood transfusion during dialysis. Labs and medications were reviewed. Dialysis orders were reviewed with the treating dialysis nurse. Physical Exam Vital Signs: Temp Pulse Resp BP Pulse Ox 99.4 F 80 16 135/52 H 95 03/27/20 09:32 03/27/20 10:00 03/27/20 10:00 03/27/20 10:00 03/27/20 10:00 Pulse Oximeter Nocturnal Start: 02/08/20 13:55 Freq: RTQ4 Status: Complete Protocol: Document 02/09/20 04:00 LRO (Rec: 02/09/20 05:38 LRO [id number]) Nocturnal Pulse Oximetry Equipment Usage Equipment in Use Oxygen Delivery Method (includes room Room Air air) O2 Sat by Pulse Oximetry (92-100) 95 Continuous SpO2 Machine # 2 Pulse Oximeter Nocturnal Start: 02/10/20 11:39 Freq: RTQ4 Status: Complete Protocol: Document 02/11/20 04:06 PMU (Rec: 02/11/20 05:06 PMU [email or web address]) Nocturnal Pulse Oximetry Equipment Usage Equipment in Use Oxygen Delivery Method (includes room Room Air air) O2 Sat by Pulse Oximetry (92-100) 93 Continuous SpO2 Machine # N2 Intake & Output 03/26/20 03/27/20 03/28/20 06:59 06:59 06:59 Intake Total 1070 1051 300 Output Total 309 300 0 Balance 761 751 300 Weight 104.3 kg 107.2 kg General appearance: PRESENT: no acute distress Respiratory exam: PRESENT: clear to auscultation kevyn. ABSENT: crackles Cardiovascular exam: PRESENT: +S1, +S2 GI/Abdominal exam: PRESENT: normal bowel sounds, soft. ABSENT: organomegaly, tenderness Neurological exam: PRESENT: awake Results Laboratory Results: 03/27/20 03:08 03/27/20 03:08 03/26/20 03/27/20 03/27/20 10:24 03:08 03:08 WBC 13.4 H RBC 2.25 L Hgb 6.8 L Hct 21.1 L MCV 94 MCH 30.3 MCHC 32.3 RDW 19.2 H Plt Count 159 Seg Neutrophils % Not Reportable Sodium 132.9 L Potassium 3.1 L Chloride 99 Carbon Dioxide 26 Anion Gap 8 BUN 65 H Creatinine 2.39 H Est GFR ( Amer) 33 L Glucose 101 Calcium 7.9 L Blood Type O POSITIVE Antibody Screen NEGATIVE 03/25/20 16:15 Sacrum - Decubitis Ulcer Gram Stain - Final 03/25/20 11:00 Tracheal Aspirate Gram Stain - Final 03/25/20 11:00 Tracheal Aspirate Sputum Culture - Final Mrsa (Meth Resis Staph Aureus) Escherichia Coli Greatly Reduced Normal [place] 03/25/20 13:31 Blood Blood Culture (PCR) - Final Enterobacter Cloacae Complex 02/08/20 02/08/20 02/21/20 09:49 13:11 04:50 Troponin I 0.160 0.155 NT-Pro-B Natriuret Pep 5540 H 92142 H 02/26/20 03/09/20 03/20/20 05:35 04:00 06:10 Troponin I NT-Pro-B Natriuret Pep 52166 H 20727 H 36085 H Impressions: Hip/Pelvis X-Ray 02/08/20 00:00 IMPRESSION: No acute fracture. Severe degenerative changes of the left hip. Knee X-Ray 02/08/20 00:00 IMPRESSION: NEGATIVE STUDY OF THE RIGHT KNEE. NO RADIOGRAPHIC EVIDENCE OF ACUTE INJURY. Renal Ultrasound 02/21/20 00:00 IMPRESSION: Increased echogenicity of the renal parenchyma suggestive of underlying chronic medical renal disease. There is no hydronephrosis. There is a Ryan catheter within the urinary bladder. Head CT 03/08/20 08:56 IMPRESSION: MILD CHRONIC CHANGES OF ATROPHY AND MICROVASCULAR ISCHEMIA. NO ACUTE PROCESS. EVIDENCE OF ACUTE STROKE: NO. Chest CT 03/08/20 10:12 IMPRESSION: Extensive bilateral infiltrates. No pneumothorax. KUB X-Ray 03/10/20 00:00 IMPRESSION: Nonspecific bowel gas pattern. Esophagogastric tube tip and side- hole are within the stomach. Chest X-Ray 03/25/20 00:00 IMPRESSION: Slight improvement. No pneumothorax. Assessment & Plan - Diagnosis (1) Acute kidney injury superimposed on chronic kidney disease Is this a current diagnosis for this admission?: Yes Plan: Acute on chronic kidney disease with patient having underlying baseline creatinine of around 1.7-2. Currently remains anuric. Initiated hemodialysis through a temporary catheter. Dialysis is ongoing. Plan to remove 1-2 L of fluid as tolerated. Discussed and reviewed dialysis orders with the treating dialysis nurse. Given his overall status it looks like the patient is going to be on chronic dialysis for the next few months unless he makes a miraculous renal recovery. Plan for IJ PermCath placement. (2) Acute on chronic combined systolic (congestive) and diastolic (congestive) heart failure Is this a current diagnosis for this admission?: Yes Plan: Improved monitor and see response to gentle dialysis. (3) Acute respiratory failure due to COVID-19 Is this a current diagnosis for this admission?: Yes Plan: Remains intubated and less sedated. Now status post tracheostomy. Being managed by electrical sign wirer. Monitor. (4) Hypocalcemia Is this a current diagnosis for this admission?: Yes Plan: Stable. Monitor. (5) Atrial fibrillation Qualifiers: Atrial fibrillation type: persistent (not longstanding) Qualified Code(s): I48.19 - Other persistent atrial fibrillation; I48.1 - Persistent atrial fibrillation Is this a current diagnosis for this admission?: Yes (6) COVID-19 virus infection Is this a current diagnosis for this admission?: Yes Plan: As per electrical sign wirer.His last serology for COVID 19 was done on 03/05 and was persistently positive.He still has elevated white count. Recommend repeat covid serology ? (7) Anemia Qualifiers: Anemia type: iron deficiency Is this a current diagnosis for this admission?: Yes Plan: .Patient has received multiple blood transfusions. Is getting another one today. He has also been started erythropoietin. Monitor. (8) Hyponatremia Is this a current diagnosis for this admission?: Yes Plan: See response to fluid removal. Monitor. (9) Decubitus ulcer of sacral region, unstageable Is this a current diagnosis for this admission?: Yes Plan: Polymicrobial. On antibiotics being managed by electrical sign wirer. (10) MRSA pneumonia Qualifiers: Laterality: bilateral Lung location: unspecified part of lung Qualified Code(s): J15.212 - Pneumonia due to Methicillin resistant Staphylococcus aureus Is this a current diagnosis for this admission?: Yes Plan: On linezolid and being managed by electrical sign wirer.
[2020-03-27] MEDS: FUROSEMIDE INJ/PF 40 MG/4 ML SDV IV SCH ×2 (11:04→21:48)
[2020-03-27] MEDS: COLLAGENASE CLOSTRIDIUM HIST. OINT 30 GM TOP SCH (11:04)
[2020-03-27] MEDS: APIXABAN 2.5 MG TABLET NG SCH ×2 (11:05→18:25)
[2020-03-27] MEDS: CHOLECALCIFEROL (D3) 1,000 UNIT (25 MCG) TABLET NG SCH ×3 (11:05→18:25)
[2020-03-27] MEDS: DIGOXIN INJ 0.5 MG/2 ML AMPULE IV SCH (11:05)
[2020-03-27] MEDS: LABETALOL HCL 200 MG TABLET NG SCH ×2 (11:05→21:48)
[2020-03-27] MEDS: HYDRALAZINE HCL 25 MG TABLET NG SCH ×2 (11:05→21:49)
[2020-03-27] MEDS: LINEZOLID 600 MG/300 ML RTUPB IV SCH (11:06)
[2020-03-27] MEDS: PANTOPRAZOLE SODIUM 40 MG VIAL IV SCH (11:06)
[2020-03-27] MEDS: AMINO AC/PROTEIN HYDR/WHEY PRO 11 GM/45 ML PKT NG SCH ×4 (11:06→21:48)
[2020-03-27] MEDS: CALCITRIOL 1 MCG/ML ORAL SOLN 15 ML NG SCH (11:07)
[2020-03-27] MEDS: POTASSIUM CHLORIDE 10 MEQ TABLET.ER PO SCH (11:10)
[2020-03-27 12:33] LABS: HEMATOCRIT 28.2 % (37.9-51.0); MEAN CORPUSCULAR HGB CONC 32.6 g/dL (32.0-36.0); MEAN CORPUSCULAR VOLUME 92 fl (80-97); PLATELET COUNT 170 10^3/uL (150-450); RED BLOOD COUNT 3.07 10^6/uL (4.35-5.55); RED CELL DISTRIBUTION WIDTH 18.3 % (11.5-14.0); WHITE BLOOD COUNT 13.8 10^3/uL (4.0-10.5)
[2020-03-27 13:02] LABS: HEMOGLOBIN 9.2 g/dL (13.5-17.0)
[2020-03-27 13:10] LABS: ABSOLUTE MONOCYTES # (MANUAL) 0.6 10^3/uL (0.1-1.4); ANISOCYTOSIS 1+; BASOPHILS % (MANUAL) 0 % (0-2); EOSINOPHILS % (MANUAL) 1 % (0-6); LYMPHOCYTES % (MANUAL) 7 % (13-45); MONOCYTES % (MANUAL) 4 % (3-13); POLYCHROMASIA SLIGHT; SEGMENTED NEUTROPHILS % (MAN) 88 % (42-78); TOTAL CELLS COUNTED 100
[2020-03-27 13:11] LABS: PLATELET COMMENT ADEQUATE
[2020-03-27] MEDS: CEFEPIME 1 GM/D5W RTU 1 GM/50 ML RTUPB IV SCH (18:25)
[2020-03-27] MEDS: ACETAMINOPHEN SOLN 325 MG/10.15 ML UDCUP NG PRN (18:31)
[2020-03-28] MEDS: LINEZOLID 600 MG/300 ML RTUPB IV SCH ×3 (00:18→23:56)
[2020-03-28] MEDS: LEVALBUTEROL HCL NEB 1.25 MG/3 ML AMPUL NEB SCH ×4 (02:40→19:52)
[2020-03-28 05:06] LABS: ABSOLUTE BASOPHILS # (AUTO) 0.2 10^3/uL (0.0-0.2); ABSOLUTE EOSINOPHILS # (AUTO) 0.2 10^3/uL (0.0-0.6); ABSOLUTE LYMPHOCYTES (AUTO) 0.9 10^3/uL (0.5-4.7); ABSOLUTE MONOCYTES (AUTO) 0.8 10^3/uL (0.1-1.4); ABSOLUTE NEUT (AUTO) 11.4 10^3/uL (1.7-8.2); BASOPHILS % (AUTO) 1.4 % (0-2); EOSINOPHILS % (AUTO) 1.6 % (0-6); HEMATOCRIT 26.6 % (37.9-51.0); HEMOGLOBIN 8.7 g/dL (13.5-17.0); LYMPHOCYTES % (AUTO) 6.7 % (13-45); MEAN CORPUSCULAR HEMOGLOBIN 30.1 pg (27.0-33.4); MEAN CORPUSCULAR HGB CONC 32.9 g/dL (32.0-36.0); MEAN CORPUSCULAR VOLUME 92 fl (80-97); MONOCYTES % (AUTO) 5.6 % (3-13); PLATELET COUNT 149 10^3/uL (150-450); RED BLOOD COUNT 2.91 10^6/uL (4.35-5.55); SEGMENTED NEUTROPHILS % (AUTO) 84.7 % (42-78); TOTAL CELLS COUNTED % (AUTO) 100 %; WHITE BLOOD COUNT 13.5 10^3/uL (4.0-10.5)
[2020-03-28 05:28] LABS: ANION GAP 9 (5-19); BLOOD UREA NITROGEN 45 mg/dL (7-20); CALCIUM 8.3 mg/dL (8.4-10.2); CARBON DIOXIDE 28 mmol/L (22-30); CHLORIDE 98 mmol/L (98-107); GLUCOSE 108 mg/dL (75-110); POTASSIUM 3.4 mmol/L (3.6-5.0)
[2020-03-28 07:38] LABS: PHOSPHORUS 2.5 mg/dL (2.5-4.5)
[2020-03-28] MEDS: AMINO AC/PROTEIN HYDR/WHEY PRO 11 GM/45 ML PKT NG SCH ×4 (10:45→23:56)
[2020-03-28] MEDS: APIXABAN 2.5 MG TABLET NG SCH ×2 (10:45→17:33)
[2020-03-28] MEDS: POTASSIUM CHLORIDE 10 MEQ TABLET.ER PO SCH (10:45)
[2020-03-28] MEDS: CHOLECALCIFEROL (D3) 1,000 UNIT (25 MCG) TABLET NG SCH ×3 (10:45→17:33)
[2020-03-28] MEDS: CALCITRIOL 1 MCG/ML ORAL SOLN 15 ML NG SCH (10:45)
[2020-03-28] MEDS: FUROSEMIDE INJ/PF 40 MG/4 ML SDV IV SCH ×2 (10:45→23:55)
[2020-03-28] MEDS: COLLAGENASE CLOSTRIDIUM HIST. OINT 30 GM TOP SCH (10:45)
[2020-03-28] MEDS: DIGOXIN INJ 0.5 MG/2 ML AMPULE IV SCH (10:45)
--- NOTE | 2020-03-28 11:27 | PDOC CRITICAL CARE PROG REPORT ---
General Date:: 03/28/20 Resuscitation Status: Full Code Events in the past 12 to 24 Hours:: On trach collar Review of systems relevant to events:: Pulmonary. ID. Neurological Reason for ICU Addmission:: On trach collar at 40%. Infected sacral wound. - Medications: Medications reviewed and adjusted accordingly: Yes Vasopressors:: None Sedation:: None Physical Exam Vital Signs: Temp Pulse Resp BP Pulse Ox 100.1 F 88 27 H 161/47 H 95 03/28/20 08:00 03/28/20 10:00 03/28/20 10:00 03/28/20 10:00 03/28/20 10:00 Pulse Oximeter Nocturnal Start: 02/08/20 13:55 Freq: RTQ4 Status: Complete Protocol: Document 02/09/20 04:00 LRO (Rec: 02/09/20 05:38 LRO [id number]) Nocturnal Pulse Oximetry Equipment Usage Equipment in Use Oxygen Delivery Method (includes room Room Air air) O2 Sat by Pulse Oximetry (92-100) 95 Continuous SpO2 Machine # 2 Pulse Oximeter Nocturnal Start: 02/10/20 11:39 Freq: RTQ4 Status: Complete Protocol: Document 02/11/20 04:06 PMU (Rec: 02/11/20 05:06 PMU [email or web address]) Nocturnal Pulse Oximetry Equipment Usage Equipment in Use Oxygen Delivery Method (includes room Room Air air) O2 Sat by Pulse Oximetry (92-100) 93 Continuous SpO2 Machine # N2 Intake & Output 03/27/20 03/28/20 03/29/20 06:59 06:59 06:59 Intake Total 1051 1350 Output Total 300 2550 Balance 751 -1200 Weight 107.2 kg 106.4 kg Weight/Height Weight 106.4 kg Height 5 ft 9 in General appearance: PRESENT: no acute distress, obese Head exam: PRESENT: atraumatic, normocephalic Eye exam: PRESENT: conjunctiva pink, EOMI, PERRLA. ABSENT: scleral icterus Ear exam: PRESENT: normal external ear exam Mouth exam: PRESENT: moist, tongue midline Respiratory exam: PRESENT: clear to auscultation kevyn, decreased breath sounds. ABSENT: rales, rhonchi, wheezes Cardiovascular exam: PRESENT: RRR. ABSENT: diastolic murmur, rubs, systolic murmur GI/Abdominal exam: PRESENT: normal bowel sounds, soft. ABSENT: distended, guarding, mass, organolmegaly, rebound, tenderness Rectal exam: PRESENT: deferred Extremities exam: PRESENT: other - Heel ulcers are improved Neurological exam: PRESENT: alert, altered, awake, CN II-XII grossly intact Skin exam: PRESENT: other - Hi sacral decubitus is large and now has a small amount of exposed bone which is osteomyelitis as expected. Continue dressing changes and santyl, antibiotics. Tubes/Lines: PRESENT: Dialysis catheter, Nasogastic Tube, Other - Tracheotomy Laboratory/Radiographs Laboratory Results: 03/28/20 04:57 03/28/20 04:57 03/27/20 03/28/20 03/28/20 11:00 04:57 04:57 WBC 13.8 H 13.5 H RBC 3.07 L 2.91 L Hgb 9.2 L D 8.7 L Hct 28.2 L 26.6 L MCV 92 92 MCH 30.0 30.1 MCHC 32.6 32.9 RDW 18.3 H 18.0 H Plt Count 170 149 L Seg Neutrophils % Not Reportable 84.7 H Sodium 134.9 L Potassium 3.4 L Chloride 98 Carbon Dioxide 28 Anion Gap 9 BUN 45 H Creatinine 1.80 H Est GFR ( Amer) 45 L Glucose 108 Calcium 8.3 L Phosphorus Magnesium 03/28/20 04:57 WBC RBC Hgb Hct MCV MCH MCHC RDW Plt Count Seg Neutrophils % Sodium Potassium Chloride Carbon Dioxide Anion Gap BUN Creatinine Est GFR ( Amer) Glucose Calcium Phosphorus 2.5 Magnesium 1.7 03/25/20 16:15 Sacrum - Decubitis Ulcer Gram Stain - Final 03/25/20 13:31 Blood Blood Culture (PCR) - Final Enterobacter Cloacae Complex 03/25/20 13:31 Blood Blood Culture - Final Enterobacter Cloacae 03/25/20 11:00 Tracheal Aspirate Gram Stain - Final 03/25/20 11:00 Tracheal Aspirate Sputum Culture - Final Mrsa (Meth Resis Staph Aureus) Escherichia Coli Greatly Reduced Normal Betsey 02/08/20 02/08/20 02/21/20 09:49 13:11 04:50 Troponin I 0.160 0.155 NT-Pro-B Natriuret Pep 5540 H 63441 H 02/26/20 03/09/20 03/20/20 05:35 04:00 06:10 Troponin I NT-Pro-B Natriuret Pep 23193 H 27207 H 48482 H Impressions: Hip/Pelvis X-Ray 02/08/20 00:00 IMPRESSION: No acute fracture. Severe degenerative changes of the left hip. Knee X-Ray 02/08/20 00:00 IMPRESSION: NEGATIVE STUDY OF THE RIGHT KNEE. NO RADIOGRAPHIC EVIDENCE OF ACUTE INJURY. Renal Ultrasound 02/21/20 00:00 IMPRESSION: Increased echogenicity of the renal parenchyma suggestive of underlying chronic medical renal disease. There is no hydronephrosis. There is a Ryan catheter within the urinary bladder. Head CT 03/08/20 08:56 IMPRESSION: MILD CHRONIC CHANGES OF ATROPHY AND MICROVASCULAR ISCHEMIA. NO ACUTE PROCESS. EVIDENCE OF ACUTE STROKE: NO. Chest CT 03/08/20 10:12 IMPRESSION: Extensive bilateral infiltrates. No pneumothorax. KUB X-Ray 03/10/20 00:00 IMPRESSION: Nonspecific bowel gas pattern. Esophagogastric tube tip and side- hole are within the stomach. Chest X-Ray 03/25/20 00:00 IMPRESSION: Slight improvement. No pneumothorax. All labs, radiographs, diagnostic studies and EKGs were personally reviewed: Yes In addition, reports of radiographic and diagnostic studies were read: Yes Assessment and Plan - Diagnosis (1) Acute respiratory failure due to COVID-19 Is this a current diagnosis for this admission?: Yes Plan: Now he is back on trach collar. (2) Acute on chronic diastolic CHF (congestive heart failure) Is this a current diagnosis for this admission?: Yes Plan: Inactive (3) Coronary artery disease Qualifiers: Coronary Disease-Associated Artery/Lesion type: unspecified vessel or lesion type [place] vs. transplanted heart: [place] heart Associated angina: with unspecified angina Qualified Code(s): I25.119 - Atherosclerotic heart disease of [place] coronary artery with unspecified angina pectoris Is this a current diagnosis for this admission?: Yes Plan: Inactive (4) Obesity (BMI 30-39.9) Is this a current diagnosis for this admission?: Yes Plan: Chronic (5) Anemia Qualifiers: Anemia type: iron deficiency Is this a current diagnosis for this admission?: Yes Plan: slowly dropping due to renal and inflammation (6) CKD (chronic kidney disease) stage 5, GFR less than 15 ml/min Is this a current diagnosis for this admission?: Yes Plan: Continue HD M/W/F (7) HTN (hypertension) Qualifiers: Hypertension type: essential hypertension Qualified Code(s): I10 - Essential (primary) hypertension Is this a current diagnosis for this admission?: Yes Plan: Controlled (8) Polyneuropathy associated with critical illness Is this a current diagnosis for this admission?: Yes Plan: Unchanged (9) Fever Is this a current diagnosis for this admission?: Yes Plan: Still low grade. (10) Osteomyelitis Qualifiers: Osteomyelitis type: other chronic Osteomyelitis location: other site Qualified Code(s): M86.68 - Other chronic osteomyelitis, other site Is this a current diagnosis for this admission?: Yes Plan: Location is sacrum. Continue Santly dressing changes, antibiotics. Plan Summary: Try to keep on trach collar as long as possible. Critical Time Critical Time (minutes): 35 Level of Care: ICU Anticipated discharge: SNF Anticipated DC Timeframe: Other -: 1. The care of a critical patient is a dynamic process. This note is a instruments sales representative synopsis but static in nature. The timeframe for treatments given in order is not necessarily the actual time these treatments may have been done. 2. This patient requires critical care secondary to ongoing requirements for therapy not offered or safe outside the critical care environment. Transfer to a lower level of care will result in altered life or limb morbidity and mortality. 3. Multidisciplinary rounds completed. 4. ABCDE bundle addressed.
[2020-03-28] MEDS: HYDRALAZINE HCL 25 MG TABLET NG SCH ×2 (12:24→23:54)
[2020-03-28] MEDS: LABETALOL HCL 200 MG TABLET NG SCH ×2 (12:26→23:54)
[2020-03-28] MEDS: HYDRALAZINE HCL INJ/PF 20 MG/1 ML SDV IV PRN (16:43)
[2020-03-28] MEDS: CEFEPIME 1 GM/D5W RTU 1 GM/50 ML RTUPB IV SCH (17:33)
[2020-03-28] MEDS: ACETAMINOPHEN SOLN 325 MG/10.15 ML UDCUP NG PRN (17:56)
[2020-03-28] MEDS ORDERED: MEROPENEM 1 GM VIAL IV PRN (22:47)
[2020-03-28] MEDS ORDERED: MEROPENEM 1 GM in NORMAL SALINE 50 ML IV ONE (23:00)
[2020-03-28] MEDS: PANTOPRAZOLE SODIUM 40 MG VIAL IV SCH (23:55)
[2020-03-28] MEDS ORDERED: MEROPENEM 1 GM VIAL ONE (23:56)
[2020-03-29] MEDS: LEVALBUTEROL HCL NEB 1.25 MG/3 ML AMPUL NEB SCH ×4 (02:41→19:47)
[2020-03-29] MEDS: MEROPENEM 1 GM in NORMAL SALINE 50 ML IV SCH ×3 (06:00→22:40)
[2020-03-29 06:56] LABS: HEMATOCRIT 24.7 % (37.9-51.0); HEMOGLOBIN 8.2 g/dL (13.5-17.0); MEAN CORPUSCULAR HEMOGLOBIN 30.4 pg (27.0-33.4); MEAN CORPUSCULAR HGB CONC 33.2 g/dL (32.0-36.0); MEAN CORPUSCULAR VOLUME 92 fl (80-97); PLATELET COUNT 135 10^3/uL (150-450); RED CELL DISTRIBUTION WIDTH 18.7 % (11.5-14.0); WHITE BLOOD COUNT 11.9 10^3/uL (4.0-10.5)
[2020-03-29 07:22] LABS: ANION GAP 11 (5-19); BLOOD UREA NITROGEN 59 mg/dL (7-20); CALCIUM 8.4 mg/dL (8.4-10.2); CARBON DIOXIDE 23 mmol/L (22-30); CHLORIDE 99 mmol/L (98-107); GLUCOSE 117 mg/dL (75-110); POTASSIUM 3.5 mmol/L (3.6-5.0)
--- NOTE | 2020-03-29 10:00 | PDOC CRITICAL CARE PROG REPORT ---
General Date:: 03/29/20 ICU Day:: 46 Hospital Day:: 50 Resuscitation Status: Full Code Events in the past 12 to 24 Hours:: Stayed om trach collar Review of systems relevant to events:: Pulmonary, CV, renal, ID. Reason for ICU Addmission:: On trach collar at 40%. Infected sacral wound. - Medications: Medications reviewed and adjusted accordingly: Yes Vasopressors:: None Sedation:: None Physical Exam Vital Signs: Temp Pulse Resp BP Pulse Ox 98.4 F 69 15 120/49 L 99 03/29/20 08:00 03/29/20 08:30 03/29/20 08:30 03/29/20 08:00 03/29/20 08:30 Pulse Oximeter Nocturnal Start: 02/08/20 13:55 Freq: RTQ4 Status: Complete Protocol: Document 02/09/20 04:00 LRO (Rec: 02/09/20 05:38 LRO [id number]) Nocturnal Pulse Oximetry Equipment Usage Equipment in Use Oxygen Delivery Method (includes room Room Air air) O2 Sat by Pulse Oximetry (92-100) 95 Continuous SpO2 Machine # 2 Pulse Oximeter Nocturnal Start: 02/10/20 11:39 Freq: RTQ4 Status: Complete Protocol: Document 02/11/20 04:06 PMU (Rec: 02/11/20 05:06 PMU [email or web address]) Nocturnal Pulse Oximetry Equipment Usage Equipment in Use Oxygen Delivery Method (includes room Room Air air) O2 Sat by Pulse Oximetry (92-100) 93 Continuous SpO2 Machine # N2 Intake & Output 03/28/20 03/29/20 03/30/20 06:59 06:59 06:59 Intake Total 1400 1360 Output Total 2550 0 Balance -1150 1360 0 Weight 106.4 kg 106.7 kg Weight/Height Weight 106.7 kg Height 5 ft 9 in General appearance: PRESENT: no acute distress, obese Head exam: PRESENT: atraumatic, normocephalic Eye exam: PRESENT: conjunctiva pink, EOMI, PERRLA. ABSENT: scleral icterus Ear exam: PRESENT: normal external ear exam Mouth exam: PRESENT: moist, tongue midline Neck exam: PRESENT: tracheostomy Respiratory exam: PRESENT: clear to auscultation kevyn. ABSENT: rales, rhonchi, wheezes Cardiovascular exam: PRESENT: RRR. ABSENT: diastolic murmur, rubs, systolic murmur GI/Abdominal exam: PRESENT: normal bowel sounds, soft. ABSENT: distended, gua rding, mass, organolmegaly, rebound, tenderness Rectal exam: PRESENT: deferred Extremities exam: PRESENT: full ROM, other - Heel ulcers. ABSENT: calf tenderness, clubbing, pedal edema Musculoskeletal exam: PRESENT: normal inspection Neurological exam: PRESENT: altered, awake, CN II-XII grossly intact, other - Awake but not responsive Skin exam: PRESENT: other - Large sacral decubitus ulcer now with sacral bone exposed. Tubes/Lines: PRESENT: Central Line, Dialysis catheter, Nasogastic Tube Laboratory/Radiographs Laboratory Results: 03/29/20 06:45 03/29/20 06:45 03/29/20 03/29/20 06:45 06:45 WBC 11.9 H RBC 2.70 L Hgb 8.2 L Hct 24.7 L MCV 92 MCH 30.4 MCHC 33.2 RDW 18.7 H Plt Count 135 L Sodium 132.8 L Potassium 3.5 L Chloride 99 Carbon Dioxide 23 Anion Gap 11 BUN 59 H Creatinine 2.23 H Est GFR ( Amer) 35 L Glucose 117 H Calcium 8.4 Magnesium 1.7 03/25/20 16:15 Sacrum - Decubitis Ulcer Gram Stain - Final 03/25/20 13:31 Blood Blood Culture (PCR) - Final Enterobacter Cloacae Complex 03/25/20 13:31 Blood Blood Culture - Final Enterobacter Cloacae 02/08/20 02/08/20 02/21/20 09:49 13:11 04:50 Troponin I 0.160 0.155 NT-Pro-B Natriuret Pep 5540 H 18531 H 02/26/20 03/09/20 03/20/20 05:35 04:00 06:10 Troponin I NT-Pro-B Natriuret Pep 46313 H 36687 H 75968 H Impressions: Hip/Pelvis X-Ray 02/08/20 00:00 IMPRESSION: No acute fracture. Severe degenerative changes of the left hip. Knee X-Ray 02/08/20 00:00 IMPRESSION: NEGATIVE STUDY OF THE RIGHT KNEE. NO RADIOGRAPHIC EVIDENCE OF ACUTE INJURY. Renal Ultrasound 02/21/20 00:00 IMPRESSION: Increased echogenicity of the renal parenchyma suggestive of underlying chronic medical renal disease. There is no hydronephrosis. There is a Ryan catheter within the urinary bladder. Head CT 03/08/20 08:56 IMPRESSION: MILD CHRONIC CHANGES OF ATROPHY AND MICROVASCULAR ISCHEMIA. NO ACUTE PROCESS. EVIDENCE OF ACUTE STROKE: NO. Chest CT 03/08/20 10:12 IMPRESSION: Extensive bilateral infiltrates. No pneumothorax. KUB X-Ray 03/10/20 00:00 IMPRESSION: Nonspecific bowel gas pattern. Esophagogastric tube tip and side- hole are within the stomach. Chest X-Ray 03/25/20 00:00 IMPRESSION: Slight improvement. No pneumothorax. All labs, radiographs, diagnostic studies and EKGs were personally reviewed: Yes In addition, reports of radiographic and diagnostic studies were read: Yes Assessment and Plan - Diagnosis (1) Acute respiratory failure due to COVID-19 Is this a current diagnosis for this admission?: Yes Plan: Still on trach collar. Need to retest soon. (2) Acute on chronic diastolic CHF (congestive heart failure) Is this a current diagnosis for this admission?: Yes Plan: Inactive (3) Coronary artery disease Qualifiers: Coronary Disease-Associated Artery/Lesion type: unspecified vessel or lesion type [place] vs. transplanted heart: [place] heart Associated angina: with unspecified angina Qualified Code(s): I25.119 - Atherosclerotic heart disease of [place] coronary artery with unspecified angina pectoris Is this a current diagnosis for this admission?: Yes Plan: Inactive (4) Obesity (BMI 30-39.9) Is this a current diagnosis for this admission?: Yes Plan: Still obese but has lost weight with illness. (5) Anemia Qualifiers: Anemia type: iron deficiency Is this a current diagnosis for this admission?: Yes Plan: Hgb dropped to 8.2. No signs off bleeding. (6) CKD (chronic kidney disease) stage 5, GFR less than 15 ml/min Is this a current diagnosis for this admission?: Yes Plan: On dialysis M/W/F. (7) HTN (hypertension) Qualifiers: Hypertension type: essential hypertension Qualified Code(s): I10 - Essential (primary) hypertension Is this a current diagnosis for this admission?: Yes Plan: Controlled (8) Polyneuropathy associated with critical illness Is this a current diagnosis for this admission?: Yes Plan: This may be permanent which will make recovery less likely. (9) Fever Is this a current diagnosis for this admission?: Yes Plan: Resolved (10) Osteomyelitis Qualifiers: Osteomyelitis type: other chronic Osteomyelitis location: other site Qualified Code(s): M86.68 - Other chronic osteomyelitis, other site Is this a current diagnosis for this admission?: Yes Plan: Continue antibiotics. Plan Summary: Revisit LTAC placement. Critical Time Critical Time (minutes): 35 Level of Care: ICU Anticipated discharge: Acute Rehab Anticipated DC Timeframe: Other -: 1. The care of a critical patient is a dynamic process. This note is a primary care sales representative synopsis but static in nature. The timeframe for treatments given in order is not necessarily the actual time these treatments may have been done. 2. This patient requires critical care secondary to ongoing requirements for therapy not offered or safe outside the critical care environment. Transfer to a lower level of care will result in altered life or limb morbidity and mortality. 3. Multidisciplinary rounds completed. 4. ABCDE bundle addressed.
[2020-03-29] MEDS: POTASSIUM CHLORIDE 10 MEQ TABLET.ER PO SCH (10:51)
[2020-03-29] MEDS: DIGOXIN INJ 0.5 MG/2 ML AMPULE IV SCH (10:51)
[2020-03-29] MEDS: LABETALOL HCL 200 MG TABLET NG SCH ×2 (10:51→22:42)
[2020-03-29] MEDS: APIXABAN 2.5 MG TABLET NG SCH ×2 (10:51→17:07)
[2020-03-29] MEDS: PANTOPRAZOLE SODIUM 40 MG VIAL IV SCH (10:51)
[2020-03-29] MEDS: CHOLECALCIFEROL (D3) 1,000 UNIT (25 MCG) TABLET NG SCH ×3 (10:51→17:33)
[2020-03-29] MEDS: LINEZOLID 600 MG/300 ML RTUPB IV SCH ×2 (10:51→22:41)
[2020-03-29] MEDS: HYDRALAZINE HCL 25 MG TABLET NG SCH ×2 (10:51→22:43)
[2020-03-29] MEDS: AMINO AC/PROTEIN HYDR/WHEY PRO 11 GM/45 ML PKT NG SCH ×4 (10:52→22:44)
[2020-03-29] MEDS: COLLAGENASE CLOSTRIDIUM HIST. OINT 30 GM TOP SCH (10:52)
[2020-03-29] MEDS: CALCITRIOL 1 MCG/ML ORAL SOLN 15 ML NG SCH (10:52)
[2020-03-30] MEDS: LEVALBUTEROL HCL NEB 1.25 MG/3 ML AMPUL NEB SCH ×4 (02:35→20:37)
[2020-03-30 04:21] LABS: HEMATOCRIT 24.8 % (37.9-51.0); HEMOGLOBIN 8.2 g/dL (13.5-17.0); MEAN CORPUSCULAR HEMOGLOBIN 30.4 pg (27.0-33.4); MEAN CORPUSCULAR HGB CONC 33.2 g/dL (32.0-36.0); MEAN CORPUSCULAR VOLUME 92 fl (80-97); PLATELET COUNT 124 10^3/uL (150-450); RED BLOOD COUNT 2.71 10^6/uL (4.35-5.55); RED CELL DISTRIBUTION WIDTH 18.2 % (11.5-14.0); WHITE BLOOD COUNT 11.3 10^3/uL (4.0-10.5)
[2020-03-30 04:57] LABS: ANION GAP 14 (5-19); BLOOD UREA NITROGEN 71 mg/dL (7-20); CALCIUM 8.8 mg/dL (8.4-10.2); CARBON DIOXIDE 21 mmol/L (22-30); CHLORIDE 98 mmol/L (98-107); GLUCOSE 105 mg/dL (75-110); POTASSIUM 3.5 mmol/L (3.6-5.0)
[2020-03-30] MEDS ORDERED: HEPARIN SOD (PORCINE) 1,000 UNIT/ML 10 ML VIAL IV PRN (05:00)
[2020-03-30] MEDS: MEROPENEM 1 GM in NORMAL SALINE 50 ML IV SCH ×3 (05:00→21:48)
[2020-03-30] MEDS ORDERED: EPOETIN ALFA-EPBX 2,000 UNIT, EPOETIN ALFA-EPBX 3,000 UNIT, EPOETIN ALFA-EPBX 20,000 UN... IV PRN ×4 (05:00)
[2020-03-30] MEDS: ACETAMINOPHEN SOLN 325 MG/10.15 ML UDCUP NG PRN (05:01)
[2020-03-30] MEDS: COLLAGENASE CLOSTRIDIUM HIST. OINT 30 GM TOP SCH (11:55)
[2020-03-30] MEDS: LINEZOLID 600 MG/300 ML RTUPB IV SCH (11:55)
[2020-03-30] MEDS: AMINO AC/PROTEIN HYDR/WHEY PRO 11 GM/45 ML PKT NG SCH ×4 (11:55→21:52)
[2020-03-30] MEDS: CHOLECALCIFEROL (D3) 1,000 UNIT (25 MCG) TABLET NG SCH ×3 (11:56→17:51)
[2020-03-30] MEDS: PANTOPRAZOLE SODIUM 40 MG VIAL IV SCH (11:56)
[2020-03-30] MEDS: HYDRALAZINE HCL 25 MG TABLET NG SCH ×2 (11:56→21:50)
[2020-03-30] MEDS: LABETALOL HCL 200 MG TABLET NG SCH ×2 (11:56→21:51)
[2020-03-30] MEDS: CALCITRIOL 1 MCG/ML ORAL SOLN 15 ML NG SCH (11:56)
[2020-03-30] MEDS: POTASSIUM CHLORIDE 10 MEQ TABLET.ER PO SCH (11:56)
--- NOTE | 2020-03-30 12:29 | PDOC PROGRESS REPORT ---
Subjective Progress Note for:: 03/30/20 Reason For Visit: Patient seen on dialysis. Undergoing dialysis without any issues. Discussed with treating nurse about the fact that the patient still remains anuric even though his creatinine is below 3. No Ryan catheter or SILVA catheter has been done along nor has any bladder scan being done. Labs and medications were reviewed. Dialysis orders were reviewed with the treating dialysis nurse. Physical Exam Vital Signs: Temp Pulse Resp BP Pulse Ox 98.4 F 61 13 144/38 H 100 03/30/20 12:00 03/30/20 12:00 03/30/20 12:10 03/30/20 12:10 03/30/20 12:09 Pulse Oximeter Nocturnal Start: 02/08/20 13:55 Freq: RTQ4 Status: Complete Protocol: Document 02/09/20 04:00 LRO (Rec: 02/09/20 05:38 LRO [id number]) Nocturnal Pulse Oximetry Equipment Usage Equipment in Use Oxygen Delivery Method (includes room Room Air air) O2 Sat by Pulse Oximetry (92-100) 95 Continuous SpO2 Machine # 2 Pulse Oximeter Nocturnal Start: 02/10/20 11:39 Freq: RTQ4 Status: Complete Protocol: Document 02/11/20 04:06 PMU (Rec: 02/11/20 05:06 PMU [email or web address]) Nocturnal Pulse Oximetry Equipment Usage Equipment in Use Oxygen Delivery Method (includes room Room Air air) O2 Sat by Pulse Oximetry (92-100) 93 Continuous SpO2 Machine # N2 Intake & Output 03/29/20 03/30/20 03/31/20 06:59 06:59 06:59 Intake Total 1360 1380 Output Total 600 2260 Balance 1360 780 -2260 Weight 106.7 kg 108.7 kg General appearance: PRESENT: no acute distress Cardiovascular exam: PRESENT: +S1, +S2 GI/Abdominal exam: PRESENT: normal bowel sounds, soft. ABSENT: organomegaly, tenderness Results Laboratory Results: 03/30/20 04:00 03/30/20 04:00 03/30/20 03/30/20 04:00 04:00 WBC 11.3 H RBC 2.71 L Hgb 8.2 L Hct 24.8 L MCV 92 MCH 30.4 MCHC 33.2 RDW 18.2 H Plt Count 124 L Sodium 132.9 L Potassium 3.5 L Chloride 98 Carbon Dioxide 21 L Anion Gap 14 BUN 71 H Creatinine 2.60 H Est GFR ( Amer) 30 L Glucose 105 Calcium 8.8 Magnesium 1.7 03/25/20 16:15 Sacrum - Decubitis Ulcer Gram Stain - Final 03/25/20 16:15 Sacrum - Decubitis Ulcer Wound Culture - Final Pseudomonas Aeruginosa Mrsa (Meth Resis Staph Aureus) Enterobacter Cloacae 02/08/20 02/08/20 02/21/20 09:49 13:11 04:50 Troponin I 0.160 0.155 NT-Pro-B Natriuret Pep 5540 H 61494 H 02/26/20 03/09/20 03/20/20 05:35 04:00 06:10 Troponin I NT-Pro-B Natriuret Pep 18607 H 06153 H 39760 H Impressions: Hip/Pelvis X-Ray 02/08/20 00:00 IMPRESSION: No acute fracture. Severe degenerative changes of the left hip. Knee X-Ray 02/08/20 00:00 IMPRESSION: NEGATIVE STUDY OF THE RIGHT KNEE. NO RADIOGRAPHIC EVIDENCE OF ACUTE INJURY. Renal Ultrasound 02/21/20 00:00 IMPRESSION: Increased echogenicity of the renal parenchyma suggestive of underlying chronic medical renal disease. There is no hydronephrosis. There is a Ryan catheter within the urinary bladder. Head CT 03/08/20 08:56 IMPRESSION: MILD CHRONIC CHANGES OF ATROPHY AND MICROVASCULAR ISCHEMIA. NO ACUTE PROCESS. EVIDENCE OF ACUTE STROKE: NO. Chest CT 03/08/20 10:12 IMPRESSION: Extensive bilateral infiltrates. No pneumothorax. KUB X-Ray 03/10/20 00:00 IMPRESSION: Nonspecific bowel gas pattern. Esophagogastric tube tip and side- hole are within the stomach. Chest X-Ray 03/25/20 00:00 IMPRESSION: Slight improvement. No pneumothorax. Assessment & Plan - Diagnosis (1) Acute kidney injury superimposed on chronic kidney disease Is this a current diagnosis for this admission?: Yes Plan: Acute on chronic kidney disease with patient having underlying baseline creatinine of around 1.7-2. Currently remains anuric. Initiated hemodialysis through a temporary catheter. Dialysis is ongoing. Plan to remove 1-2 L of fluid as tolerated. Discussed and reviewed dialysis orders with the treating dialysis nurse. Given his overall status it looks like the patient is going to be on chronic dialysis for the next few months unless he makes a miraculous renal recovery.However does have this congruence between his creatinine remaining below 3 and he remaining anuric. Discussed with the treating nurse to either do an SILVA catheter to check for urine or to do a bladder scan to check for any urinary residual. If either way his urine the bladder is completely negative then we should go ahead with plan for IJ PermCath placement. (2) Acute on chronic combined systolic (congestive) and diastolic (congestive) heart failure Is this a current diagnosis for this admission?: Yes Plan: Improved monitor and see response to gentle dialysis. (3) Acute respiratory failure due to COVID-19 Is this a current diagnosis for this admission?: Yes Plan: Remains intubated and less sedated. Now status post tracheostomy. Being managed by apple checker. Monitor. (4) Hypocalcemia Is this a current diagnosis for this admission?: Yes Plan: Resolved. (5) Atrial fibrillation Qualifiers: Atrial fibrillation type: persistent (not longstanding) Qualified Code(s): I48.19 - Other persistent atrial fibrillation; I48.1 - Persistent atrial fibrillation Is this a current diagnosis for this admission?: Yes Plan: Currently rate controlled. Monitor. (6) COVID-19 virus infection Is this a current diagnosis for this admission?: Yes Plan: As per apple checker.His last serology for COVID 19 was done on 03/05 and was persistently positive.He still has elevated white count. Recommend repeat covid serology ? (7) Anemia Qualifiers: Anemia type: iron deficiency Is this a current diagnosis for this admission?: Yes Plan: .Patient has received multiple blood transfusions. He has also been started erythropoietin. Monitor. (8) Hyponatremia Is this a current diagnosis for this admission?: Yes Plan: See response to fluid removal. Monitor. (9) Decubitus ulcer of sacral region, unstageable Is this a current diagnosis for this admission?: Yes Plan: Polymicrobial. On antibiotics being managed by apple checker. (10) MRSA pneumonia Qualifiers: Laterality: bilateral Lung location: unspecified part of lung Qualified Code(s): J15.212 - Pneumonia due to Methicillin resistant Staphylococcus aureus Is this a current diagnosis for this admission?: Yes Plan: On linezolid and being managed by apple checker.
[2020-03-30] MEDS ORDERED: VANCOMYCIN HCL 0 MG in DEXTROSE 5%-WATER 250 ML IV NR (16:15)
[2020-03-30] MEDS: APIXABAN 2.5 MG TABLET NG SCH (17:51)
--- NOTE | 2020-03-30 18:52 | PDOC CRITICAL CARE PROG REPORT ---
General Date:: 03/30/20 ICU Day:: 47 Hospital Day:: 51 Resuscitation Status: Full Code Events in the past 12 to 24 Hours:: This 69-year-old male was admitted on 02/08/2020 with dyspnea and leg weakness. He reported falling out of his truck a few days prior to presentation. He transferred to the ICU on 02/12/2020 after requiring endotr acheal intubation due to acute respiratory failure secondary to COVID-19 pneumonia. He is required prolonged mechanical ventilatory support and underwent tracheostomy on 03/11/2020. 03/30: Tolerates trach collar trial during the day. Goes on mechanical ventilatory support during sleep and at nighttime. Patient is awake, alert and interactive. He certainly demonstrates flat affect. Follows commands. Generalized weakness. Edema. Continues to struggle with worsening sacral decubitus ulcer. Anticipated debridement later this week. Digoxin level this morning 2.27. Underwent hemodialysis this morning. Review of systems relevant to events:: Pulmonary, CV, renal, ID. Reason for ICU Addmission:: On trach collar at 40%. Infected sacral wound. - Medications: Medications reviewed and adjusted accordingly: Yes Physical Exam Vital Signs: Temp Pulse Resp BP Pulse Ox 98.4 F 67 24 H 142/38 H 100 03/30/20 12:00 03/30/20 14:00 03/30/20 14:40 03/30/20 14:40 03/30/20 14:40 Pulse Oximeter Nocturnal Start: 02/08/20 13:55 Freq: RTQ4 Status: Complete Protocol: Document 02/09/20 04:00 LRO (Rec: 02/09/20 05:38 LRO [email or web address]) Nocturnal Pulse Oximetry Equipment Usage Equipment in Use Oxygen Delivery Method (includes room Room Air air) O2 Sat by Pulse Oximetry (92-100) 95 Continuous SpO2 Machine # 2 Pulse Oximeter Nocturnal Start: 02/10/20 11:39 Freq: RTQ4 Status: Complete Protocol: Document 02/11/20 04:06 PMU (Rec: 02/11/20 05:06 PMU [email or web address]) Nocturnal Pulse Oximetry Equipment Usage Equipment in Use Oxygen Delivery Method (includes room Room Air air) O2 Sat by Pulse Oximetry (92-100) 93 Continuous SpO2 Machine # N2 Intake & Output 10/04/20 10/05/20 10/06/20 06:59 06:59 06:59 Intake Total 1360 1380 Output Total 600 2260 Balance 1360 780 -2260 Weight 106.7 kg 108.7 kg Weight/Height Weight 108.7 kg Height 1.75 m General appearance: PRESENT: no acute distress, well-developed, well-nourished Head exam: PRESENT: atraumatic, normocephalic Eye exam: PRESENT: conjunctiva pink, EOMI, PERRLA. ABSENT: scleral icterus Neck exam: PRESENT: tracheostomy. ABSENT: carotid bruit, JVD, lymphadenopathy, thyromegaly Respiratory exam: PRESENT: clear to auscultation kevyn. ABSENT: rales, rhonchi, wheezes Cardiovascular exam: PRESENT: RRR. ABSENT: diastolic murmur, rubs, systolic murmur Pulses: PRESENT: normal dorsalis pedis pul GI/Abdominal exam: PRESENT: normal bowel sounds, soft. ABSENT: distended, guarding, mass, organolmegaly, rebound, tenderness Extremities exam: PRESENT: full ROM, pedal edema, +1 edema. ABSENT: calf tenderness, clubbing Musculoskeletal exam: PRESENT: normal inspection. ABSENT: deformity Neurological exam: PRESENT: alert, awake, CN II-XII grossly intact, motor sensory deficit - Generalized motor weakness Psychiatric exam: PRESENT: flat affect. ABSENT: agitated, anxious Focused psych exam: ABSENT: psychomotor agitation, restlessness Skin exam: PRESENT: other - Sacral decubitus (stage IV) Tubes/Lines: PRESENT: Central Line - Right IJ, Dialysis catheter - Left femoral Laboratory/Radiographs Laboratory Results: 03/30/20 04:00 03/30/20 04:00 03/30/20 03/30/20 04:00 04:00 WBC 11.3 H RBC 2.71 L Hgb 8.2 L Hct 24.8 L MCV 92 MCH 30.4 MCHC 33.2 RDW 18.2 H Plt Count 124 L Sodium 132.9 L Potassium 3.5 L Chloride 98 Carbon Dioxide 21 L Anion Gap 14 BUN 71 H Creatinine 2.60 H Est GFR ( Amer) 30 L Glucose 105 Calcium 8.8 Magnesium 1.7 03/25/20 16:15 Sacrum - Decubitis Ulcer Gram Stain - Final 03/25/20 16:15 Sacrum - Decubitis Ulcer Wound Culture - Final Pseudomonas Aeruginosa Mrsa (Meth Resis Staph Aureus) Enterobacter Cloacae 02/08/20 02/08/20 02/21/20 09:49 13:11 04:50 Troponin I 0.160 0.155 NT-Pro-B Natriuret Pep 5540 H 48834 H 02/26/20 03/09/20 03/20/20 05:35 04:00 06:10 Troponin I NT-Pro-B Natriuret Pep 72730 H 39028 H 56712 H Impressions: Hip/Pelvis X-Ray 02/08/20 00:00 IMPRESSION: No acute fracture. Severe degenerative changes of the left hip. Knee X-Ray 02/08/20 00:00 IMPRESSION: NEGATIVE STUDY OF THE RIGHT KNEE. NO RADIOGRAPHIC EVIDENCE OF ACUTE INJURY. Renal Ultrasound 02/21/20 00:00 IMPRESSION: Increased echogenicity of the renal parenchyma suggestive of underlying chronic medical renal disease. There is no hydronephrosis. There is a Ryan catheter within the urinary bladder. Head CT 03/08/20 08:56 IMPRESSION: MILD CHRONIC CHANGES OF ATROPHY AND MICROVASCULAR ISCHEMIA. NO ACUTE PROCESS. EVIDENCE OF ACUTE STROKE: NO. Chest CT 03/08/20 10:12 IMPRESSION: Extensive bilateral infiltrates. No pneumothorax. KUB X-Ray 03/10/20 00:00 IMPRESSION: Nonspecific bowel gas pattern. Esophagogastric tube tip and side- hole are within the stomach. Chest X-Ray 03/25/20 00:00 IMPRESSION: Slight improvement. No pneumothorax. All labs, radiographs, diagnostic studies and EKGs were personally reviewed: Yes In addition, reports of radiographic and diagnostic studies were read: Yes Assessment and Plan - Diagnosis (1) Acute respiratory failure due to COVID-19 Is this a current diagnosis for this admission?: Yes Plan: * Continue trach collar trials. * Mechanical ventilatory support at night. * Repeat SARS-2-CoV testing. (2) Gram negative sepsis Is this a current diagnosis for this admission?: Yes Plan: * Secondary to wound infection/sacral decubitus, which is still isolating Pseudo monas aeruginosa, Enterobacter cloacae and MRSA. * Continue meropenem. * Change linezolid to vancomycin. This patient will need to start on an SSRI (Celexa) for PTSD and prolonged ICU hospitalization. (3) Decubitus ulcer of sacral region, unstageable Is this a current diagnosis for this admission?: Yes Plan: Present on admission. General surgery help appreciated. (4) Polyneuropathy associated with critical illness Is this a current diagnosis for this admission?: Yes Plan: * This may be permanent which will make recovery less likely. * PT/OT consult. * Given his prolonged ICU hospitalization and prolonged mechanical ventilatory support requirement, it is understandable that the patient is starting to demonstrate flat affect and signs of clinical depression. Start Celexa. (5) Nonischemic cardiomyopathy Is this a current diagnosis for this admission?: Yes Plan: LVEF 25-30% with grade 3 diastolic dysfunction on 2D echo (02/10/2020). (6) Atrial fibrillation Qualifiers: Atrial fibrillation type: persistent (not longstanding) Qualified Code(s): I48.19 - Other persistent atrial fibrillation; I48.1 - Persistent atrial fibrillation Is this a current diagnosis for this admission?: Yes Plan: * Hold digoxin. * Eliquis on hold in anticipation of debridement. (7) Vitamin D deficiency Is this a current diagnosis for this admission?: Yes Plan: * Vitamin D3 2000 units NG 3 times daily. * Check vitamin D levels. (8) Hyponatremia Is this a current diagnosis for this admission?: Yes (9) Occult blood in stools Is this a current diagnosis for this admission?: Yes (10) CKD (chronic kidney disease) stage 5, GFR less than 15 ml/min Is this a current diagnosis for this admission?: Yes (11) Abnormal LFTs Is this a current diagnosis for this admission?: Yes (12) Normocytic anemia Is this a current diagnosis for this admission?: Yes (13) MRSA pneumonia Qualifiers: Laterality: bilateral Lung location: unspecified part of lung Qualified Code(s): J15.212 - Pneumonia due to Methicillin resistant Staphylococcus aureus Is this a current diagnosis for this admission?: Yes (14) Pneumonia due to gram-negative bacteria Is this a current diagnosis for this admission?: Yes Critical Time Critical Time (minutes): 60 Level of Care: ICU -: 1. The care of a critical patient is a dynamic process. This note is a assisted sales representative synopsis but static in nature. The timeframe for treatments given in order is not necessarily the actual time these treatments may have been done. 2. This patient requires critical care secondary to ongoing requirements for therapy not offered or safe outside the critical care environment. Transfer to a lower level of care will result in altered life or limb morbidity and mortality. 3. Multidisciplinary rounds completed. 4. ABCDE bundle addressed.
[2020-03-30] MEDS ORDERED: VANCOMYCIN HCL 2,000 MG in DEXTROSE 5%-WATER 500 ML IV ONE (22:00)
[2020-03-31] MEDS: LEVALBUTEROL HCL NEB 1.25 MG/3 ML AMPUL NEB SCH ×4 (02:21→20:27)
[2020-03-31] MEDS: MEROPENEM 1 GM in NORMAL SALINE 50 ML IV SCH ×3 (06:32→21:21)
[2020-03-31] MEDS ORDERED: FENTANYL CITRATE INJ/PF 100 MCG/2 ML AMPUL IV ONE (07:00)
[2020-03-31] MEDS ORDERED: LIDOCAINE 1%/EPINEPHRINE INJ 20 ML VIAL INJ PRN (07:58)
[2020-03-31] MEDS ORDERED: MIDAZOLAM 2 MG/2 ML INJ IV PRN (07:58)
[2020-03-31 08:26] LABS: HEMATOCRIT 25.4 % (37.9-51.0); HEMOGLOBIN 8.4 g/dL (13.5-17.0); MEAN CORPUSCULAR HEMOGLOBIN 30.4 pg (27.0-33.4); MEAN CORPUSCULAR HGB CONC 33.2 g/dL (32.0-36.0); MEAN CORPUSCULAR VOLUME 92 fl (80-97); PLATELET COUNT 122 10^3/uL (150-450); RED BLOOD COUNT 2.77 10^6/uL (4.35-5.55); RED CELL DISTRIBUTION WIDTH 18.5 % (11.5-14.0); WHITE BLOOD COUNT 10.8 10^3/uL (4.0-10.5)
[2020-03-31 08:32] LABS: PROTHROMBIN TIME 14.4 SEC (11.4-15.4)
[2020-03-31 08:33] LABS: PARTIAL THROMBOPLASTIN TIME 34.8 SEC (23.5-35.8)
[2020-03-31 08:44] LABS: ANION GAP 11 (5-19); BLOOD UREA NITROGEN 54 mg/dL (7-20); CALCIUM 8.5 mg/dL (8.4-10.2); CARBON DIOXIDE 25 mmol/L (22-30); CHLORIDE 97 mmol/L (98-107); GLUCOSE 123 mg/dL (75-110); POTASSIUM 3.2 mmol/L (3.6-5.0)
[2020-03-31] MEDS: POTASSIUM CHLORIDE 10 MEQ TABLET.ER PO SCH (11:10)
[2020-03-31] MEDS: CALCITRIOL 1 MCG/ML ORAL SOLN 15 ML NG SCH (11:10)
[2020-03-31] MEDS: COLLAGENASE CLOSTRIDIUM HIST. OINT 30 GM TOP SCH (11:10)
[2020-03-31] MEDS: CITALOPRAM HYDROBROMIDE 20 MG TABLET NG SCH (11:10)
[2020-03-31] MEDS: AMINO AC/PROTEIN HYDR/WHEY PRO 11 GM/45 ML PKT NG SCH ×4 (11:11→21:18)
[2020-03-31] MEDS: LABETALOL HCL 200 MG TABLET NG SCH ×2 (11:11→21:21)
[2020-03-31] MEDS: CHOLECALCIFEROL (D3) 1,000 UNIT (25 MCG) TABLET NG SCH ×3 (11:11→18:27)
[2020-03-31] MEDS: HYDRALAZINE HCL 25 MG TABLET NG SCH ×2 (11:11→21:21)
[2020-03-31] MEDS: PANTOPRAZOLE SODIUM 40 MG VIAL IV SCH (11:11)
[2020-03-31] MEDS: APIXABAN 2.5 MG TABLET NG SCH ×2 (11:11→18:27)
--- NOTE | 2020-03-31 11:20 | Operative Report ---
Nonrecallable Operative Report DATE OF SURGERY: 03/31/20 PREOPERATIVE DIAGNOSIS: Progressive necrosis of sacral decubitus ulcer POSTOPERATIVE DIAGNOSIS: Same as above OPERATION: Sharp, excisional debridement of skin, fatty tissue, muscle, and fascia of the sacral decubitus ulcer. Debrided area approximately 14 x 12 x 1 cm. SURGEON: SWATI GUILLEN ANESTHESIA: LMAC TISSUE REMOVED OR ALTERED: Skin, fatty tissue, fascia, and muscle of the sacral decubitus ulcer/buttock COMPLICATIONS: None apparent ESTIMATED BLOOD LOSS: 20 cc PROCEDURE: Drains/implants: 4 x 4 gauze soaked in epinephrine, Kerlix, and ABD pads. Procedure in detail: After informed consent was obtained, the patient was rolled into the left lateral decubitus position. The area of the sacral decubitus ulcer was prepped and draped in sterile fashion. A 10 blade scalpel was used to debride away all necrotic tissue sharply from the sacral decubitus ulcer. This included skin, fatty tissue, muscle, and fascia. The area measured approximately 14 x 12 centimeter length and width by 1 cm deep. The debridement was taken to healthy bleeding tissue. Once this was completed, a dressing was fashioned using epinephrine soaked 4 x 4's covered with Kerlix and ABD pads. The procedure was at this time concluded. All sponge, instrument, and needle counts were correct. Condition: Critical in ICU.
[2020-03-31] MEDS: HYDROMORPHONE HCL INJ/PF 2 MG/ML AMPULE IV PRN ×2 (11:53→21:33)
[2020-03-31] MEDS ORDERED: NORMAL SALINE IV ONE (16:00)
[2020-03-31] MEDS ORDERED: DESMOPRESSIN ACETATE IV ONE (16:00)
--- NOTE | 2020-03-31 17:22 | PDOC CRITICAL CARE PROG REPORT ---
General Date:: 03/31/20 ICU Day:: 48 Hospital Day:: 52 Resuscitation Status: Full Code Events in the past 12 to 24 Hours:: This 69-year-old male was admitted on 02/08/2020 with dyspnea and leg weakness. He reported falling out of his truck a few days prior to presentation. He transferred to the ICU on 02/12/2020 after requiring endotr acheal intubation due to acute respiratory failure secondary to COVID-19 pneumonia. He is required prolonged mechanical ventilatory support and underwent tracheostomy on 03/11/2020. 03/30: Tolerates trach collar trial during the day. Goes on mechanical ventilatory support during sleep and at nighttime. Patient is awake, alert and interactive. He certainly demonstrates flat affect. Follows commands. Generalized weakness. Edema. Continues to struggle with worsening sacral decubitus ulcer. Anticipated debridement later this week. Digoxin level this morning 2.27. Underwent hemodialysis this morning. 03/31: Anticipating debridement of sacral decubitus ulcer today. Tolerating trach collar during the day. Using ventilator support at night. Ryan catheter was placed in the interim with bladder scan showing over 100 mL of urine; however, the patient has produced approximately 10 mL/h. Linezolid has been changed to vancomycin in the interim, in hopes of starting SSRI. Review of systems relevant to events:: Pulmonary, CV, renal, ID. Reason for ICU Addmission:: On trach collar at 40%. Infected sacral wound. - Medications: Medications reviewed and adjusted accordingly: Yes Physical Exam Vital Signs: Temp Pulse Resp BP Pulse Ox 98.8 F 86 26 H 141/35 H 100 03/31/20 07:45 03/31/20 08:49 03/31/20 08:49 03/31/20 07:45 03/31/20 08:49 Pulse Oximeter Nocturnal Start: 02/08/20 13:55 Freq: RTQ4 Status: Complete Protocol: Document 02/09/20 04:00 LRO (Rec: 02/09/20 05:38 LRO [id number]) Nocturnal Pulse Oximetry Equipment Usage Equipment in Use Oxygen Delivery Method (includes room Room Air air) O2 Sat by Pulse Oximetry (92-100) 95 Continuous SpO2 Machine # 2 Pulse Oximeter Nocturnal Start: 02/10/20 11:39 Freq: RTQ4 Status: Complete Protocol: Document 02/11/20 04:06 PMU (Rec: 02/11/20 05:06 PMU [email or web address]) Nocturnal Pulse Oximetry Equipment Usage Equipment in Use Oxygen Delivery Method (includes room Room Air air) O2 Sat by Pulse Oximetry (92-100) 93 Continuous SpO2 Machine # N2 Intake & Output 03/30/20 03/31/20 04/01/20 06:59 06:59 06:59 Intake Total 1380 1170 Output Total 600 2515 0 Balance 780 -1345 0 Weight 108.7 kg 107.5 kg Weight/Height Weight 107.5 kg Height 1.75 m General appearance: PRESENT: no acute distress, obese, well-developed, well- nourished Head exam: PRESENT: atraumatic, normocephalic Eye exam: PRESENT: conjunctiva pink, EOMI, PERRLA. ABSENT: scleral icterus Neck exam: PRESENT: tracheostomy. ABSENT: carotid bruit, JVD, lymphadenopathy, thyromegaly Respiratory exam: PRESENT: clear to auscultation kevyn. ABSENT: rales, rhonchi, wheezes Cardiovascular exam: PRESENT: RRR. ABSENT: diastolic murmur, rubs, systolic murmur Pulses: PRESENT: normal dorsalis pedis pul GI/Abdominal exam: PRESENT: normal bowel sounds, soft. ABSENT: distended, guarding, mass, organolmegaly, rebound, tenderness Gentrourinary exam: PRESENT: indwelling catheter Extremities exam: PRESENT: full ROM, pedal edema, +2 edema. ABSENT: calf tenderness, clubbing Musculoskeletal exam: PRESENT: normal inspection. ABSENT: deformity Neurological exam: PRESENT: alert, awake, CN II-XII grossly intact, motor sensory deficit - Generalized weakness Psychiatric exam: PRESENT: depressed, flat affect Skin exam: PRESENT: other - Stage IV sacral decubitus ulcer Tubes/Lines: PRESENT: Central Line - Right IJ, Dialysis catheter - Left femoral Laboratory/Radiographs Laboratory Results: 03/31/20 08:16 03/31/20 08:16 03/31/20 03/31/20 08:16 08:16 WBC 10.8 H RBC 2.77 L Hgb 8.4 L Hct 25.4 L MCV 92 MCH 30.4 MCHC 33.2 RDW 18.5 H Plt Count 122 L Sodium 132.9 L Potassium 3.2 L Chloride 97 L Carbon Dioxide 25 Anion Gap 11 BUN 54 H Creatinine 1.69 H Est GFR ( Amer) 49 L Glucose 123 H Calcium 8.5 02/08/20 02/08/20 02/21/20 09:49 13:11 04:50 Troponin I 0.160 0.155 NT-Pro-B Natriuret Pep 5540 H 86417 H 02/26/20 03/09/20 03/20/20 05:35 04:00 06:10 Troponin I NT-Pro-B Natriuret Pep 74886 H 92383 H 87111 H Impressions: Hip/Pelvis X-Ray 02/08/20 00:00 IMPRESSION: No acute fracture. Severe degenerative changes of the left hip. Knee X-Ray 02/08/20 00:00 IMPRESSION: NEGATIVE STUDY OF THE RIGHT KNEE. NO RADIOGRAPHIC EVIDENCE OF ACUTE INJURY. Renal Ultrasound 02/21/20 00:00 IMPRESSION: Increased echogenicity of the renal parenchyma suggestive of underlying chronic medical renal disease. There is no hydronephrosis. There is a Ryan catheter within the urinary bladder. Head CT 03/08/20 08:56 IMPRESSION: MILD CHRONIC CHANGES OF ATROPHY AND MICROVASCULAR ISCHEMIA. NO A CUTE PROCESS. EVIDENCE OF ACUTE STROKE: NO. Chest CT 03/08/20 10:12 IMPRESSION: Extensive bilateral infiltrates. No pneumothorax. KUB X-Ray 03/10/20 00:00 IMPRESSION: Nonspecific bowel gas pattern. Esophagogastric tube tip and side- hole are within the stomach. Chest X-Ray 03/25/20 00:00 IMPRESSION: Slight improvement. No pneumothorax. All labs, radiographs, diagnostic studies and EKGs were personally reviewed: Yes In addition, reports of radiographic and diagnostic studies were read: Yes Assessment and Plan - Diagnosis (1) Acute respiratory failure due to COVID-19 Is this a current diagnosis for this admission?: Yes Plan: * Trach collar during the day. * Mechanical ventilatory support at night. * Repeat SARS-2-CoV test PENDING. (2) Gram negative sepsis Is this a current diagnosis for this admission?: Yes Plan: * Secondary to wound infection/sacral decubitus, which is still isolating Pseudomonas aeruginosa, Enterobacter cloacae and MRSA. * Blood clot cultures (03/25) were noted to isolate Enterobacter species. * Continue meropenem. * It is concerning that the patient has had a central venous catheter and temporary hemodialysis access for a prolonged period of time, albeit the insertion site still look good. We will need to finalize plans for permanent dialysis access. Upon removal, catheter tips should be submitted for culture. (3) Decubitus ulcer of sacral region, unstageable Is this a current diagnosis for this admission?: Yes Plan: * Present on admission. * General surgery help appreciated. * Zyvox has been changed to vancomycin in the interim in hopes of starting SSRI for the patient's depressive mood. (4) Polyneuropathy associated with critical illness Is this a current diagnosis for this admission?: Yes Plan: * This may be permanent which will make recovery less likely. * PT/OT consult. (5) CKD (chronic kidney disease) stage 5, GFR less than 15 ml/min Is this a current diagnosis for this admission?: Yes Plan: * On dialysis M/W/F. * Nephrology assistance appreciated. * I anticipate this patient will need permanent dialysis access. * Dialysis catheter will need to be removed on 04/01 after completion of his hemodialysis session. (6) Nonischemic cardiomyopathy Is this a current diagnosis for this admission?: Yes Plan: LVEF 25-30% with grade 3 diastolic dysfunction on 2D echo (02/10/2020). (7) Atrial fibrillation Qualifiers: Atrial fibrillation type: persistent (not longstanding) Qualified Code(s): I48.19 - Other persistent atrial fibrillation; I48.1 - Persistent atrial fibrillation Is this a current diagnosis for this admission?: Yes Plan: * Hold digoxin. * Eliquis on hold for debridement and may need to stay on hold until tunneled HD catheter has been placed. Will need to consider starting heparin infusion in the meantime. (8) Vitamin D deficiency Is this a current diagnosis for this admission?: Yes Plan: * Vitamin D3 2000 units NG 3 times daily. * 25-hydroxy vitamin D level is still LOW. 1,25-dihydroxy vitamin D level pending. (9) Hyponatremia Is this a current diagnosis for this admission?: Yes (10) Occult blood in stools Is this a current diagnosis for this admission?: Yes (11) Normocytic anemia Is this a current diagnosis for this admission?: Yes (12) Abnormal LFTs Is this a current diagnosis for this admission?: Yes (13) MRSA pneumonia Qualifiers: Laterality: bilateral Lung location: unspecified part of lung Qualified Code(s): J15.212 - Pneumonia due to Methicillin resistant Staphylococcus aureus Is this a current diagnosis for this admission?: Yes (14) Pneumonia due to gram-negative bacteria Is this a current diagnosis for this admission?: Yes Critical Time Critical Time (minutes): 60 Level of Care: ICU -: 1. The care of a critical patient is a dynamic process. This note is a office machines sales representative synopsis but static in nature. The timeframe for treatments given in order is not necessarily the actual time these treatments may have been done. 2. This patient requires critical care secondary to ongoing requirements for therapy not offered or safe outside the critical care environment. Transfer to a lower level of care will result in altered life or limb morbidity and mortality. 3. Multidisciplinary rounds completed. 4. ABCDE bundle addressed.
[2020-03-31] MEDS: FUROSEMIDE INJ/PF 100 MG/10 ML SDV IV SCH (18:26)
[2020-04-01] MEDS: HYDROMORPHONE HCL INJ/PF 2 MG/ML AMPULE IV PRN ×2 (01:52→14:11)
[2020-04-01] MEDS: FUROSEMIDE INJ/PF 100 MG/10 ML SDV IV SCH ×3 (01:53→18:01)
[2020-04-01] MEDS: LEVALBUTEROL HCL NEB 1.25 MG/3 ML AMPUL NEB SCH ×4 (02:25→19:59)
[2020-04-01 04:56] LABS: HEMATOCRIT 20.3 % (37.9-51.0); MEAN CORPUSCULAR HEMOGLOBIN 30.7 pg (27.0-33.4); MEAN CORPUSCULAR HGB CONC 33.4 g/dL (32.0-36.0); MEAN CORPUSCULAR VOLUME 92 fl (80-97); PLATELET COUNT 108 10^3/uL (150-450); RED CELL DISTRIBUTION WIDTH 18.8 % (11.5-14.0); WHITE BLOOD COUNT 10.2 10^3/uL (4.0-10.5)
[2020-04-01 05:01] LABS: INTERNATIONAL RATION (INR) 1.12; PROTHROMBIN TIME 14.6 SEC (11.4-15.4)
[2020-04-01 05:02] LABS: HEMOGLOBIN 6.8 g/dL (13.5-17.0); PARTIAL THROMBOPLASTIN TIME 33.8 SEC (23.5-35.8)
[2020-04-01 05:11] LABS: ALBUMIN 2.1 g/dL (3.5-5.0); ALKALINE PHOSPHATASE 117 U/L (38-126); ANION GAP 11 (5-19); ASPARTATE AMINO TRANSFERASE 36 U/L (17-59); BILIRUBIN,DIRECT 0.5 mg/dL (0.0-0.4); BILIRUBIN,TOTAL 0.6 mg/dL (0.2-1.3); BLOOD UREA NITROGEN 69 mg/dL (7-20); CALCIUM 8.5 mg/dL (8.4-10.2); CARBON DIOXIDE 24 mmol/L (22-30); CHLORIDE 98 mmol/L (98-107); GLUCOSE 108 mg/dL (75-110); POTASSIUM 3.7 mmol/L (3.6-5.0); TOTAL PROTEIN 4.4 g/dL (6.3-8.2)
[2020-04-01] MEDS ORDERED: NORMAL SALINE 250 ML IV PRN ×2 (05:40)
[2020-04-01 05:56] LABS: DIGOXIN 2.04 ng/mL (0.8-2.0)
[2020-04-01] MEDS: MEROPENEM 1 GM in NORMAL SALINE 50 ML IV SCH ×3 (06:30→22:14)
[2020-04-01] MEDS ORDERED: HEPARIN SOD (PORCINE) 1,000 UNIT/ML 10 ML VIAL IV PRN (06:45)
[2020-04-01] MEDS ORDERED: EPOETIN ALFA-EPBX 30,000 UNIT in SYRINGE, DISPOSABLE, 1 EACH IV PRN (08:00)
[2020-04-01] MEDS: AMINO AC/PROTEIN HYDR/WHEY PRO 11 GM/45 ML PKT NG SCH ×4 (10:06→22:15)
[2020-04-01] MEDS: PANTOPRAZOLE SODIUM 40 MG VIAL IV SCH (10:06)
[2020-04-01] MEDS: POTASSIUM CHLORIDE 10 MEQ TABLET.ER PO SCH ×2 (10:06→14:01)
[2020-04-01] MEDS: CHOLECALCIFEROL (D3) 1,000 UNIT (25 MCG) TABLET NG SCH ×4 (10:07→18:02)
[2020-04-01] MEDS: LABETALOL HCL 200 MG TABLET NG SCH ×3 (10:07→22:15)
[2020-04-01] MEDS: CITALOPRAM HYDROBROMIDE 20 MG TABLET NG SCH ×2 (10:07→14:01)
[2020-04-01] MEDS: HYDRALAZINE HCL 25 MG TABLET NG SCH ×3 (10:07→22:00)
[2020-04-01] MEDS: APIXABAN 2.5 MG TABLET NG SCH ×2 (10:07→12:26)
[2020-04-01] MEDS: COLLAGENASE CLOSTRIDIUM HIST. OINT 30 GM TOP SCH (10:36)
[2020-04-01] MEDS: CALCITRIOL 1 MCG/ML ORAL SOLN 15 ML NG SCH ×2 (10:36→14:02)
--- NOTE | 2020-04-01 13:59 | RADIOLOGY REPORT (SQ) ---
EXAM DESCRIPTION: KUB/ABDOMEN (SINGLE VIEW) IMAGES COMPLETED DATE/TIME: 04/01/2020 1:28 pm REASON FOR STUDY: ng tube COMPARISON: 03/10/2020 NUMBER OF VIEWS: One view. TECHNIQUE: Supine radiographic image of the abdomen acquired. LIMITATIONS: None. FINDINGS: BOWEL GAS PATTERN: Normal bowel gas pattern. No dilated loops. CALCIFICATIONS: No suspicious calcifications. SOFT TISSUES: No gross mass or suggestion of organomegaly. HARDWARE: NG tube is present. The tip of the tube is lung the greater curvature. BONES: No acute fracture. No worrisome bone lesions. OTHER: No other significant finding. IMPRESSION: NG tube as described. TECHNICAL DOCUMENTATION: JOB ID: [id number] 2010 [employer]- All Rights Reserved Reading location - IP/workstation name: [email or web address]
--- NOTE | 2020-04-01 16:04 | PDOC CONSULTATION ---
Consultation Consult Date: 04/01/20 Provider Consulted: INES ACEVEDO Consult reason:: Need of permacath placement History of Present Illness Admission Date/PCP: 02/08/20 13:[facility] History of Present Illness: INES TURNER JR is a 70 year old male, intubated via tracheostomy (March 11, 2020), respiratory failure, ventilator dependent due to severe COVID-19 pneumonia, acute on chronic renal failure, in need of chronic hemodialysis 3 times a week, I been requested due to place a permacath. The patient had positive blood cultures Enterobacter on March 25, 2020. Patient is cu rrently on intravenous antibiotics. He underwent sacral decubitus debridement on March 31, 2020 (decubitus culture significant for Enterobacter, MRSA, Pseudomonas. Current H&H is 6.8 and 20.3, respectively. He has been dialyzed today April 01, 2020: His next dialysis will be on April 03, 2020. Apparently, the patient is ready for transfer to an LTAC facility. Past Medical History Cardiac Medical History: Reports: Congestive Heart Failure, Coronary Artery Disease, Hypertension Denies: Atrial Fibrillation, DVT, Myocardial Infarction, Hyperlipidema, Pulmonary Embolism Pulmonary Medical History: Reports: Respiratory Failure, Sleep Apnea Denies: Asthma, Bronchitis, Chronic Obstructive Pulmonary Disease (COPD), Pneumonia Neurological Medical History: Denies: Seizures Endocrine Medical History: Denies: Diabetes Mellitus Type 1, Diabetes Mellitus Type 2, Hyperthyroidism, Hypothyroidism GI Medical History: Denies: Cirrhosis, Crohn's Disease, Gastroesophageal Reflux Disease, Hepatitis, Ulcerative Colitis Musculoskeltal Medical History: Denies: Arthritis, Gout Skin Medical History: Denies: Eczema, Psoriasis Psychiatric Medical History: Denies: Depression Hematology: Denies: Anemia, Bleeding Tendencies Past Surgical History Past Surgical History: Reports: Cardiac Catheterization, Coronary Artery Bypass Graft Social History Smoking Status: Former Smoker Last Time Smoked: 1999 Frequency of Alcohol Use: None Hx Recreational Drug Use: No Drugs: None Hx Prescription Drug Abuse: No - Advance Directive Resuscitation Status: Full Code Family History Family History: DM, Hypertension. denies: CAD, Malignancy Parental Family History Reviewed: No Children Family History Reviewed: No Sibling(s) Family History Reviewed.: No Medication/Allergy Home Medications: Aspirin [Aspirin 81 mg Chewable Tablet] 81 mg PO DAILY 01/29/20 Clopidogrel Bisulfate [Plavix 75 mg Tablet] 75 mg PO DAILY #30 tablet 02/03/20 Metoprolol Succinate [Toprol Xl 50 mg Tab.sr] 50 mg PO DAILY #30 tab.sr.24h 02/03/20 Sacubitril/Valsartan [Entresto 49 mg/51 mg Tablet] 1 tab PO Q12 #60 tablet 02/03/20 Allergies/Adverse Reactions: No Known Allergies Allergy (Verified 02/08/20 10:21) Physical Exam Vital Signs: Temp Pulse Resp BP Pulse Ox 98.4 F 81 18 122/47 L 100 04/01/20 12:00 04/01/20 14:49 04/01/20 14:49 04/01/20 14:00 04/01/20 14:49 Pulse Oximeter Nocturnal Start: 02/08/20 13:55 Freq: RTQ4 Status: Complete Protocol: Document 02/09/20 04:00 LRO (Rec: 02/09/20 05:38 LRO [id number]) Nocturnal Pulse Oximetry Equipment Usage Equipment in Use Oxygen Delivery Method (includes room Room Air air) O2 Sat by Pulse Oximetry (92-100) 95 Continuous SpO2 Machine # 2 Pulse Oximeter Nocturnal Start: 02/10/20 11:39 Freq: RTQ4 Status: Complete Protocol: Document 02/11/20 04:06 PMU (Rec: 02/11/20 05:06 PMU [email or web address]) Nocturnal Pulse Oximetry Equipment Usage Equipment in Use Oxygen Delivery Method (includes room Room Air air) O2 Sat by Pulse Oximetry (92-100) 93 Continuous SpO2 Machine # N2 Intake & Output 03/31/20 04/01/20 04/02/20 06:59 06:59 06:59 Intake Total 1470 777.5 650 Output Total 2515 395 5 Balance -1045 382.5 645 Weight 107.5 kg 100.2 kg General appearance: PRESENT: no acute distress, thin, other - To bated and mildly sedated Head exam: PRESENT: atraumatic Eye exam: PRESENT: EOMI Mouth exam: PRESENT: other Neck exam: PRESENT: tracheostomy Respiratory exam: PRESENT: other - Course breath sounds Cardiovascular exam: PRESENT: RRR GI/Abdominal exam: PRESENT: soft Rectal exam: PRESENT: deferred Neurological exam: PRESENT: altered Skin exam: PRESENT: warm Results Laboratory Results: 04/01/20 04:30 04/01/20 04:30 04/01/20 04/01/20 04/01/20 04:30 04:30 05:10 WBC 10.2 RBC 2.20 L Hgb 6.8 L Hct 20.3 L MCV 92 MCH 30.7 MCHC 33.4 RDW 18.8 H Plt Count 108 L Sodium 132.8 L Potassium 3.7 Chloride 98 Carbon Dioxide 24 Anion Gap 11 BUN 69 H Creatinine 2.11 H Est GFR ( Amer) 38 L Glucose 108 Calcium 8.5 Total Bilirubin 0.6 AST 36 Alkaline Phosphatase 117 Total Protein 4.4 L Albumin 2.1 L Blood Type O POSITIVE Antibody Screen NEGATIVE 02/08/20 02/08/20 02/21/20 09:49 13:11 04:50 Troponin I 0.160 0.155 NT-Pro-B Natriuret Pep 5540 H 28074 H 02/26/20 03/09/20 03/20/20 05:35 04:00 06:10 Troponin I NT-Pro-B Natriuret Pep 72807 H 19175 H 46696 H Impressions: Hip/Pelvis X-Ray 02/08/20 00:00 IMPRESSION: No acute fracture. Severe degenerative changes of the left hip. Knee X-Ray 02/08/20 00:00 IMPRESSION: NEGATIVE STUDY OF THE RIGHT KNEE. NO RADIOGRAPHIC EVIDENCE OF ACUTE INJURY. Renal Ultrasound 02/21/20 00:00 IMPRESSION: Increased echogenicity of the renal parenchyma suggestive of underlying chronic medical renal disease. There is no hydronephrosis. There is a Ryan catheter within the urinary bladder. Head CT 03/08/20 08:56 IMPRESSION: MILD CHRONIC CHANGES OF ATROPHY AND MICROVASCULAR ISCHEMIA. NO ACUTE PROCESS. EVIDENCE OF ACUTE STROKE: NO. Chest CT 03/08/20 10:12 IMPRESSION: Extensive bilateral infiltrates. No pneumothorax. Chest X-Ray 03/25/20 00:00 IMPRESSION: Slight improvement. No pneumothorax. KUB X-Ray 04/01/20 00:00 IMPRESSION: NG tube as described. Assessment & Plan - Diagnosis (1) Acute kidney injury superimposed on chronic kidney disease Is this a current diagnosis for this admission?: Yes (2) Acute respiratory failure due to COVID-19 Is this a current diagnosis for this admission?: Yes (3) Anemia Qualifiers: Anemia type: iron deficiency Is this a current diagnosis for this admission?: Yes (4) Acute respiratory failure Qualifiers: Respiratory failure complication: hypoxia Qualified Code(s): J96.01 - Acute respiratory failure with hypoxia Is this a current diagnosis for this admission?: Yes - Plan Summary Plan Summary: Assessment: History of COVID-19 pneumonia, now COVID-19 negative Acute on chronic kidney failure requiring hemodialysis Patient dialyzed today oh 2% Next dialysis April 03, 2020 Moderately severe anemia (H&H today 6.8, 20.3 respectively) Patient in need of permacath to continue his dialysis Plan: Sent for permacath placement tomorrow We will discuss with protozoologist the transfusion of 2 units of packed red blood cells to improve his H&H prior to the procedure tomorrow Obtain consent for permacath placement Patient will be able to be transferred to LTAC facility following placement of permacath tomorrow.
--- NOTE | 2020-04-01 17:16 | PDOC PROGRESS REPORT ---
Subjective Progress Note for:: 04/01/20 Reason For Visit: Patient seen in the ICU today on dialysis. He is undergoing dialysis without any issues. He is got a trach collar. He is waiting on LTAC placement. Dialysis orders reviewed with the treating dialysis nurse. Labs and medications were reviewed. Physical Exam Vital Signs: Temp Pulse Resp BP Pulse Ox 98.4 F 81 18 122/47 L 100 04/01/20 12:00 04/01/20 14:49 04/01/20 14:49 04/01/20 14:00 04/01/20 15:45 Pulse Oximeter Nocturnal Start: 02/08/20 13:55 Freq: RTQ4 Status: Complete Protocol: Document 02/09/20 04:00 LRO (Rec: 02/09/20 05:38 LRO [email or web address]) Nocturnal Pulse Oximetry Equipment Usage Equipment in Use Oxygen Delivery Method (includes room Room Air air) O2 Sat by Pulse Oximetry (92-100) 95 Continuous SpO2 Machine # 2 Pulse Oximeter Nocturnal Start: 02/10/20 11:39 Freq: RTQ4 Status: Complete Protocol: Document 02/11/20 04:06 PMU (Rec: 02/11/20 05:06 PMU [email or web address]) Nocturnal Pulse Oximetry Equipment Usage Equipment in Use Oxygen Delivery Method (includes room Room Air air) O2 Sat by Pulse Oximetry (92-100) 93 Continuous SpO2 Machine # N2 Intake & Output 03/31/20 04/01/20 04/02/20 06:59 06:59 06:59 Intake Total 1470 777.5 700 Output Total 2515 395 2305 Balance -1045 382.5 -1605 Weight 107.5 kg 100.2 kg Cardiovascular exam: PRESENT: +S1, +S2 GI/Abdominal exam: PRESENT: normal bowel sounds, soft. ABSENT: organomegaly, tenderness Extremities exam: PRESENT: pedal edema Results Laboratory Results: 04/01/20 04:30 04/01/20 04:30 04/01/20 04/01/20 04/01/20 04:30 04:30 05:10 WBC 10.2 RBC 2.20 L Hgb 6.8 L Hct 20.3 L MCV 92 MCH 30.7 MCHC 33.4 RDW 18.8 H Plt Count 108 L Sodium 132.8 L Potassium 3.7 Chloride 98 Carbon Dioxide 24 Anion Gap 11 BUN 69 H Creatinine 2.11 H Est GFR ( Amer) 38 L Glucose 108 Calcium 8.5 Total Bilirubin 0.6 AST 36 Alkaline Phosphatase 117 Total Protein 4.4 L Albumin 2.1 L Blood Type O POSITIVE Antibody Screen NEGATIVE 02/08/20 02/08/20 02/21/20 09:49 13:11 04:50 Troponin I 0.160 0.155 NT-Pro-B Natriuret Pep 5540 H 58960 H 02/26/20 03/09/20 03/20/20 05:35 04:00 06:10 Troponin I NT-Pro-B Natriuret Pep 35789 H 59735 H 27080 H Impressions: Hip/Pelvis X-Ray 02/08/20 00:00 IMPRESSION: No acute fracture. Severe degenerative changes of the left hip. Knee X-Ray 02/08/20 00:00 IMPRESSION: NEGATIVE STUDY OF THE RIGHT KNEE. NO RADIOGRAPHIC EVIDENCE OF ACUTE INJURY. Renal Ultrasound 02/21/20 00:00 IMPRESSION: Increased echogenicity of the renal parenchyma suggestive of underlying chronic medical renal disease. There is no hydronephrosis. There is a Ryan catheter within the urinary bladder. Head CT 03/08/20 08:56 IMPRESSION: MILD CHRONIC CHANGES OF ATROPHY AND MICROVASCULAR ISCHEMIA. NO ACUTE PROCESS. EVIDENCE OF ACUTE STROKE: NO. Chest CT 03/08/20 10:12 IMPRESSION: Extensive bilateral infiltrates. No pneumothorax. Chest X-Ray 03/25/20 00:00 IMPRESSION: Slight improvement. No pneumothorax. KUB X-Ray 04/01/20 00:00 IMPRESSION: NG tube as described. Assessment & Plan - Diagnosis (1) Acute kidney injury superimposed on chronic kidney disease Is this a current diagnosis for this admission?: Yes Plan: Acute on chronic kidney disease with patient having underlying baseline creatinine of around 1.7-2. Currently remains anuric. Initiated hemodialysis through a temporary catheter. Dialysis is ongoing. Plan to remove 2-3 L of fluid as tolerated. Discussed and reviewed dialysis orders with the treating dialysis nurse. Plan for IJ PermCath placement. (2) Acute on chronic combined systolic (congestive) and diastolic (congestive) heart failure Is this a current diagnosis for this admission?: Yes Plan: Improved monitor and see response to gentle dialysis. (3) Acute respiratory failure due to COVID-19 Is this a current diagnosis for this admission?: Yes Plan: Remains intubated and less sedated. Now status post tracheostomy. Being managed by lubrication worker. Monitor. (4) Atrial fibrillation Qualifiers: Atrial fibrillation type: persistent (not longstanding) Qualified Code(s): I48.19 - Other persistent atrial fibrillation; I48.1 - Persistent atrial fibrillation Is this a current diagnosis for this admission?: Yes (5) COVID-19 virus infection Is this a current diagnosis for this admission?: Yes Plan: As per lubrication worker.His last serology for COVID 19 was done on 03/05 and was persistently positive.He still has elevated white count. Recommend repeat covid serology ? (6) Anemia Qualifiers: Anemia type: iron deficiency Is this a current diagnosis for this admission?: Yes Plan: Today's hemoglobin is 6.8. Patient is on erythropoietin. Recommend transfusions. (7) Hyponatremia Is this a current diagnosis for this admission?: Yes Plan: See response to fluid removal. Monitor. (8) Decubitus ulcer of sacral region, unstageable Is this a current diagnosis for this admission?: Yes Plan: Polymicrobial. On antibiotics being managed by lubrication worker. (9) MRSA pneumonia Qualifiers: Laterality: bilateral Lung location: unspecified part of lung Qualified Code(s): J15.212 - Pneumonia due to Methicillin resistant Staphylococcus aureus Is this a current diagnosis for this admission?: Yes Plan: On Vanc and meropenem and being managed by lubrication worker.
[2020-04-01] MEDS ORDERED: VANCOMYCIN HCL 750 MG in DEXTROSE 5%-WATER 250 ML IV SCH (18:00)
--- NOTE | 2020-04-01 19:12 | PDOC CRITICAL CARE PROG REPORT ---
General Date:: 04/01/20 ICU Day:: 49 Hospital Day:: 53 Resuscitation Status: Full Code Events in the past 12 to 24 Hours:: This 69-year-old male was admitted on 02/08/2020 with dyspnea and leg weakness. He reported falling out of his truck a few days prior to presentation. He transferred to the ICU on 02/12/2020 after requiring endotr acheal intubation due to acute respiratory failure secondary to COVID-19 pneumonia. He is required prolonged mechanical ventilatory support and underwent tracheostomy on 03/11/2020. 03/30: Tolerates trach collar trial during the day. Goes on mechanical ventilatory support during sleep and at nighttime. Patient is awake, alert and interactive. He certainly demonstrates flat affect. Follows commands. Generalized weakness. Edema. Continues to struggle with worsening sacral decubitus ulcer. Anticipated debridement later this week. Digoxin level this morning 2.27. Underwent hemodialysis this morning. 03/31: Anticipating debridement of sacral decubitus ulcer today. Tolerating trach collar during the day. Using ventilator support at night. Ryan catheter was placed in the interim with bladder scan showing over 100 mL of urine; however, the patient has produced approximately 10 mL/h. Linezolid has been changed to vancomycin in the interim, in hopes of starting SSRI. 04/01: Underwent debridement of sacral decubitus ulcer yesterday. Nurse reported excessive oozing into the bandages. DDAVP was administered due to concerns of platelet dysfunction given his renal failure. I suspect the "improvement "in creatinine seen on yesterday's lab was a lab error, as today's lab results are more consistent with expected findings. Hemoglobin 8.4> 6.8. On hemodialysis this morning. Also, scheduled to receive 2 units PRBC over dialysis. Platelets 108. Not on heparin. Not on famotidine. Has been on Nepro for nutritional support along with Prosource. Tolerating trach collar trial during the day. Using vent support at night. He is remaining on ventilator support during his dialysis session. Demonstrating Darío-Manuel respirations. Psychologically, the patient appears to be more interactive and perhaps in better spirits. Did start on Celexa yesterday. Review of systems relevant to events:: Pulmonary, CV, renal, ID. Reason for ICU Addmission:: On trach collar at 40%. Infected sacral wound. - Medications: Medications reviewed and adjusted accordingly: Yes Physical Exam Vital Signs: Temp Pulse Resp BP Pulse Ox 97.4 F 72 21 H 101/40 L 100 04/01/20 10:53 04/01/20 10:53 04/01/20 10:56 04/01/20 10:56 04/01/20 10:56 Pulse Oximeter Nocturnal Start: 02/08/20 13:55 Freq: RTQ4 Status: Complete Protocol: Document 02/09/20 04:00 LRO (Rec: 02/09/20 05:38 LRO [email or web address]) Nocturnal Pulse Oximetry Equipment Usage Equipment in Use Oxygen Delivery Method (includes room Room Air air) O2 Sat by Pulse Oximetry (92-100) 95 Continuous SpO2 Machine # 2 Pulse Oximeter Nocturnal Start: 02/10/20 11:39 Freq: RTQ4 Status: Complete Protocol: Document 02/11/20 04:06 PMU (Rec: 02/11/20 05:06 PMU [email or web address]) Nocturnal Pulse Oximetry Equipment Usage Equipment in Use Oxygen Delivery Method (includes room Room Air air) O2 Sat by Pulse Oximetry (92-100) 93 Continuous SpO2 Machine # N2 Intake & Output 03/31/20 04/01/20 04/02/20 06:59 06:59 06:59 Intake Total 1470 777.5 600 Output Total 2515 395 5 Balance -1045 382.5 595 Weight 107.5 kg 100.2 kg Weight/Height Weight 100.2 kg Height 1.75 m General appearance: PRESENT: no acute distress, well-developed, well-nourished Head exam: PRESENT: atraumatic, normocephalic Eye exam: PRESENT: conjunctiva pink, EOMI, PERRLA. ABSENT: scleral icterus Mouth exam: PRESENT: moist, tongue midline Neck exam: PRESENT: tracheostomy. ABSENT: carotid bruit, JVD, lymphadenopathy, thyromegaly Respiratory exam: PRESENT: clear to auscultation kevyn. ABSENT: rales, rhonchi, w heezes Cardiovascular exam: PRESENT: irregular rhythm. ABSENT: diastolic murmur, rubs, systolic murmur Pulses: PRESENT: normal dorsalis pedis pul GI/Abdominal exam: PRESENT: normal bowel sounds, soft. ABSENT: distended, gua rding, mass, organolmegaly, rebound, tenderness Gentrourinary exam: PRESENT: indwelling catheter Extremities exam: PRESENT: full ROM, pedal edema, +1 edema, +2 edema. ABSENT: calf tenderness, clubbing Musculoskeletal exam: PRESENT: normal inspection. ABSENT: deformity Neurological exam: PRESENT: alert, awake, oriented to person, oriented to place, oriented to time, oriented to situation, CN II-XII grossly intact, other - Generalized weakness. ABSENT: motor sensory deficit Psychiatric exam: PRESENT: appropriate affect, normal mood Skin exam: PRESENT: dry, intact, warm, other - Age for sacral decubitus. ABSENT: cyanosis, rash Tubes/Lines: PRESENT: Central Line - Right IJ, Dialysis catheter - Left femoral, Nasogastic Tube Laboratory/Radiographs Laboratory Results: 04/01/20 04:30 04/01/20 04:30 04/01/20 04/01/20 04/01/20 04:30 04:30 05:10 WBC 10.2 RBC 2.20 L Hgb 6.8 L Hct 20.3 L MCV 92 MCH 30.7 MCHC 33.4 RDW 18.8 H Plt Count 108 L Sodium 132.8 L Potassium 3.7 Chloride 98 Carbon Dioxide 24 Anion Gap 11 BUN 69 H Creatinine 2.11 H Est GFR ( Amer) 38 L Glucose 108 Calcium 8.5 Total Bilirubin 0.6 AST 36 Alkaline Phosphatase 117 Total Protein 4.4 L Albumin 2.1 L Blood Type O POSITIVE Antibody Screen NEGATIVE 02/08/20 02/08/20 02/21/20 09:49 13:11 04:50 Troponin I 0.160 0.155 NT-Pro-B Natriuret Pep 5540 H 72333 H 02/26/20 03/09/20 03/20/20 05:35 04:00 06:10 Troponin I NT-Pro-B Natriuret Pep 68833 H 29100 H 85871 H Impressions: Hip/Pelvis X-Ray 02/08/20 00:00 IMPRESSION: No acute fracture. Severe degenerative changes of the left hip. Knee X-Ray 02/08/20 00:00 IMPRESSION: NEGATIVE STUDY OF THE RIGHT KNEE. NO RADIOGRAPHIC EVIDENCE OF ACUTE INJURY. Renal Ultrasound 02/21/20 00:00 IMPRESSION: Increased echogenicity of the renal parenchyma suggestive of underlying chronic medical renal disease. There is no hydronephrosis. There is a Ryan catheter within the urinary bladder. Head CT 03/08/20 08:56 IMPRESSION: MILD CHRONIC CHANGES OF ATROPHY AND MICROVASCULAR ISCHEMIA. NO ACUTE PROCESS. EVIDENCE OF ACUTE STROKE: NO. Chest CT 03/08/20 10:12 IMPRESSION: Extensive bilateral infiltrates. No pneumothorax. KUB X-Ray 03/10/20 00:00 IMPRESSION: Nonspecific bowel gas pattern. Esophagogastric tube tip and side- hole are within the stomach. Chest X-Ray 03/25/20 00:00 IMPRESSION: Slight improvement. No pneumothorax. All labs, radiographs, diagnostic studies and EKGs were personally reviewed: Yes In addition, reports of radiographic and diagnostic studies were read: Yes Assessment and Plan - Diagnosis (1) Acute respiratory failure due to COVID-19 Is this a current diagnosis for this admission?: Yes Plan: * Trach collar during the day. * Mechanical ventilatory support at night. * Repeat SARS-2-CoV test PENDING. (2) Gram negative sepsis Is this a current diagnosis for this admission?: Yes Plan: * Secondary to wound infection/sacral decubitus, which is still isolating Pseudomonas aeruginosa, Enterobacter cloacae and MRSA. * Blood clot cultures (03/25) were noted to isolate Enterobacter species. * Continue meropenem. * It is concerning that the patient has had a central venous catheter and temporary hemodialysis access for a prolonged period of time, albeit the insertion site still look good. * Remove temporary hemodialysis catheter today. Remove central venous catheter today. Line holiday. * We will plan to place new temporary hemodialysis catheter tomorrow if plans for tunneled HD catheter cannot be finalized. (3) Decubitus ulcer of sacral region, unstageable Is this a current diagnosis for this admission?: Yes Plan: * Present on admission. * General surgery help appreciated. * Zyvox has been changed to vancomycin in the interim in hopes of starting SSRI for the patient's depressive mood. (4) Polyneuropathy associated with critical illness Is this a current diagnosis for this admission?: Yes (5) CKD (chronic kidney disease) stage 5, GFR less than 15 ml/min Is this a current diagnosis for this admission?: Yes (6) Nonischemic cardiomyopathy Is this a current diagnosis for this admission?: Yes (7) Atrial fibrillation Qualifiers: Atrial fibrillation type: persistent (not longstanding) Qualified Code(s): I48.19 - Other persistent atrial fibrillation; I48.1 - Persistent atrial fibrillation Is this a current diagnosis for this admission?: Yes Plan: * Hold digoxin. * Eliquis on hold for debridement and may need to stay on hold until tunneled HD catheter has been placed. Will need to consider starting heparin infusion in the meantime. (8) Darío-Manuel respiration Is this a current diagnosis for this admission?: Yes (9) Vitamin D deficiency Is this a current diagnosis for this admission?: Yes (10) Hyponatremia Is this a current diagnosis for this admission?: Yes (11) Occult blood in stools Is this a current diagnosis for this admission?: Yes (12) Normocytic anemia Is this a current diagnosis for this admission?: Yes (13) Abnormal LFTs Is this a current diagnosis for this admission?: Yes (14) Pneumonia due to gram-negative bacteria Is this a current diagnosis for this admission?: Yes (15) MRSA pneumonia Qualifiers: Laterality: bilateral Lung location: unspecified part of lung Qualified Code(s): J15.212 - Pneumonia due to Methicillin resistant Staphylococcus aureus Is this a current diagnosis for this admission?: Yes Critical Time Critical Time (minutes): 60 Level of Care: ICU -: 1. The care of a critical patient is a dynamic process. This note is a school admissions representative synopsis but static in nature. The timeframe for treatments g iven in order is not necessarily the actual time these treatments may have been done. 2. This patient requires critical care secondary to ongoing requirements for therapy not offered or safe outside the critical care environment. Transfer to a lower level of care will result in altered life or limb morbidity and mortality. 3. Multidisciplinary rounds completed. 4. ABCDE bundle addressed.
[2020-04-01 21:37] LABS: ABSOLUTE EOSINOPHILS # (AUTO) 0.4 10^3/uL (0.0-0.6); ABSOLUTE LYMPHOCYTES (AUTO) 0.9 10^3/uL (0.5-4.7); ABSOLUTE MONOCYTES (AUTO) 0.6 10^3/uL (0.1-1.4); ABSOLUTE NEUT (AUTO) 10.3 10^3/uL (1.7-8.2); BASOPHILS % (AUTO) 0.4 % (0-2); EOSINOPHILS % (AUTO) 3.3 % (0-6); HEMATOCRIT 26.8 % (37.9-51.0); LYMPHOCYTES % (AUTO) 7.3 % (13-45); MEAN CORPUSCULAR HEMOGLOBIN 29.3 pg (27.0-33.4); MEAN CORPUSCULAR HGB CONC 33.3 g/dL (32.0-36.0); RED BLOOD COUNT 3.05 10^6/uL (4.35-5.55); RED CELL DISTRIBUTION WIDTH 20.2 % (11.5-14.0); TOTAL CELLS COUNTED % (AUTO) 100 %; WHITE BLOOD COUNT 12.3 10^3/uL (4.0-10.5)
[2020-04-01 22:01] LABS: HEMOGLOBIN 8.9 g/dL (13.5-17.0); MEAN CORPUSCULAR VOLUME 88 fl (80-97); PLATELET COUNT 95 10^3/uL (150-450)
[2020-04-02] MEDS: FUROSEMIDE INJ/PF 100 MG/10 ML SDV IV SCH ×2 (01:45→11:10)
[2020-04-02] MEDS: LEVALBUTEROL HCL NEB 1.25 MG/3 ML AMPUL NEB SCH ×4 (02:49→20:37)
[2020-04-02] MEDS: MEROPENEM 1 GM in NORMAL SALINE 50 ML IV SCH ×3 (06:15→21:13)
--- NOTE | 2020-04-02 07:49 | PDOC PROGRESS REPORT ---
Subjective Progress Note for:: 04/02/20 Subjective:: Patient sedated, intubated via tracheostomy, nonresponsive Reason For Visit: WEAKNESS,ELEVATED TROPONIN,CHF Physical Exam Vital Signs: Temp Pulse Resp BP Pulse Ox 98.2 F 70 27 H 124/35 L 100 04/02/20 06:00 04/02/20 02:49 04/02/20 05:27 04/02/20 05:27 04/02/20 05:27 Pulse Oximeter Nocturnal Start: 02/08/20 13:55 Freq: RTQ4 Status: Complete Protocol: Document 02/09/20 04:00 LRO (Rec: 02/09/20 05:38 LRO [email or web address]) Nocturnal Pulse Oximetry Equipment Usage Equipment in Use Oxygen Delivery Method (includes room Room Air air) O2 Sat by Pulse Oximetry (92-100) 95 Continuous SpO2 Machine # 2 Pulse Oximeter Nocturnal Start: 02/10/20 11:39 Freq: RTQ4 Status: Complete Protocol: Document 02/11/20 04:06 PMU (Rec: 02/11/20 05:06 PMU [email or web address]) Nocturnal Pulse Oximetry Equipment Usage Equipment in Use Oxygen Delivery Method (includes room Room Air air) O2 Sat by Pulse Oximetry (92-100) 93 Continuous SpO2 Machine # N2 Intake & Output 04/01/20 04/02/20 04/03/20 06:59 06:59 06:59 Intake Total 777.5 1641 Output Total 395 2775 Balance 382.5 -1134 Weight 100.2 kg 99.3 kg General appearance: PRESENT: other - Sedated, nonresponsive Neck exam: PRESENT: tracheostomy Results Laboratory Results: 04/01/20 21:00 04/01/20 04:30 04/01/20 04/01/20 05:10 21:00 WBC 12.3 H RBC 3.05 L Hgb 8.9 L D Hct 26.8 L MCV 88 D MCH 29.3 MCHC 33.3 RDW 20.2 H Plt Count 95 L Seg Neutrophils % 84.0 H Blood Type O POSITIVE Antibody Screen NEGATIVE 02/08/20 02/08/20 02/21/20 09:49 13:11 04:50 Troponin I 0.160 0.155 NT-Pro-B Natriuret Pep 5540 H 49936 H 02/26/20 03/09/2003/20/20 05:35 04:00 06:10 Troponin I NT-Pro-B Natriuret Pep 92115 H 46285 H 67413 H Impressions: Hip/Pelvis X-Ray 02/08/20 00:00 IMPRESSION: No acute fracture. Severe degenerative changes of the left hip. Knee X-Ray 02/08/20 00:00 IMPRESSION: NEGATIVE STUDY OF THE RIGHT KNEE. NO RADIOGRAPHIC EVIDENCE OF ACUTE INJURY. Renal Ultrasound 02/21/20 00:00 IMPRESSION: Increased echogenicity of the renal parenchyma suggestive of underlying chronic medical renal disease. There is no hydronephrosis. There is a Ryan catheter within the urinary bladder. Head CT 03/08/20 08:56 IMPRESSION: MILD CHRONIC CHANGES OF ATROPHY AND MICROVASCULAR ISCHEMIA. NO ACUTE PROCESS. EVIDENCE OF ACUTE STROKE: NO. Chest CT 03/08/20 10:12 IMPRESSION: Extensive bilateral infiltrates. No pneumothorax. KUB X-Ray 04/01/20 00:00 IMPRESSION: NG tube as described. Assessment & Plan - Diagnosis (1) Acute kidney injury superimposed on chronic kidney disease Is this a current diagnosis for this admission?: Yes (2) Acute respiratory failure due to COVID-19 Is this a current diagnosis for this admission?: Yes (3) Anemia Qualifiers: Anemia type: iron deficiency Is this a current diagnosis for this admission?: Yes (4) Acute respiratory failure Qualifiers: Respiratory failure complication: hypoxia Qualified Code(s): J96.01 - Acute respiratory failure with hypoxia Is this a current diagnosis for this admission?: Yes - Time Anticipated Discharge Disposition: Long-Term Care Facility Anticipated Discharge Timeframe: within 72 hours - Plan Summary Plan Summary: Assessment: Ventilator dependency Respiratory failure Status post tracheostomy Acute on chronic renal failure on hemodialysis Need of permanent hemodialysis catheter Blood cultures and femoral vein hemodialysis catheter tip culture pending Femoral vein hemodialysis catheter removed on April 01 Plan: Placement of permacath tomorrow April 03, 2020 N.p.o. after midnight hold (hold tube feeding) Hold subcut heparin tonight
--- NOTE | 2020-04-02 09:44 | RADIOLOGY REPORT (SQ) ---
EXAM DESCRIPTION: CHEST SINGLE VIEW IMAGES COMPLETED DATE/TIME: 04/02/2020 6:12 am REASON FOR STUDY: ETT tube COMPARISON: 03/25/2020. EXAM PARAMETERS: NUMBER OF VIEWS: One view. TECHNIQUE: Single frontal radiographic view of the chest acquired. RADIATION DOSE: NA LIMITATIONS: None. FINDINGS: LUNGS AND PLEURA: Bilateral airspace disease, particularly in the lung bases. Possible ri ght pleural effusion. MEDIASTINUM AND HILAR STRUCTURES: No masses. Contour normal. HEART AND VASCULAR STRUCTURES: Mild cardiomegaly. BONES: No acute findings. Degenerative changes in the spine and shoulders. HARDWARE: The central line has been removed. There are clips in the upper right midline. Stable tra cheostomy tube and nasogastric tube. Sternotomy wires, coronary bypass markers, atrial clip, and car diac recorder. OTHER: No other significant finding. IMPRESSION: NO SIGNIFICANT INTERVAL CHANGE IN APPEARANCE OF THE CHEST. TECHNICAL DOCUMENTATION: JOB ID: [id number] 2010 [employer] All Rights Reserved Reading location - IP/workstation name: [email or web address]
[2020-04-02] MEDS: CALCITRIOL 1 MCG/ML ORAL SOLN 15 ML NG SCH (11:15)
[2020-04-02] MEDS: CHOLECALCIFEROL (D3) 1,000 UNIT (25 MCG) TABLET NG SCH ×3 (11:20→17:43)
[2020-04-02] MEDS: COLLAGENASE CLOSTRIDIUM HIST. OINT 30 GM TOP SCH (11:20)
[2020-04-02] MEDS: LABETALOL HCL 200 MG TABLET NG SCH ×2 (11:25→21:14)
[2020-04-02] MEDS: AMINO AC/PROTEIN HYDR/WHEY PRO 11 GM/45 ML PKT NG SCH ×4 (11:25→21:15)
[2020-04-02] MEDS: POTASSIUM CHLORIDE 10 MEQ TABLET.ER PO SCH (11:25)
[2020-04-02] MEDS: PANTOPRAZOLE SODIUM 40 MG VIAL IV SCH (11:25)
[2020-04-02] MEDS: HYDRALAZINE HCL 25 MG TABLET NG SCH ×2 (11:26→21:14)
[2020-04-02] MEDS: CITALOPRAM HYDROBROMIDE 20 MG TABLET NG SCH (11:37)
[2020-04-02 15:25] LABS: HEMOGLOBIN 8.2 g/dL (13.5-17.0); MEAN CORPUSCULAR HEMOGLOBIN 29.5 pg (27.0-33.4); MEAN CORPUSCULAR HGB CONC 34.1 g/dL (32.0-36.0); MEAN CORPUSCULAR VOLUME 86 fl (80-97); RED BLOOD COUNT 2.78 10^6/uL (4.35-5.55); RED CELL DISTRIBUTION WIDTH 20.3 % (11.5-14.0); WHITE BLOOD COUNT 11.9 10^3/uL (4.0-10.5)
[2020-04-02 15:31] LABS: ANION GAP 8 (5-19); BLOOD UREA NITROGEN 63 mg/dL (7-20); CALCIUM 8.5 mg/dL (8.4-10.2); CARBON DIOXIDE 25 mmol/L (22-30); CHLORIDE 100 mmol/L (98-107); GLUCOSE 109 mg/dL (75-110); PHOSPHORUS 4.2 mg/dL (2.5-4.5); POTASSIUM 3.4 mmol/L (3.6-5.0)
[2020-04-02 15:56] LABS: PLATELET COUNT 96 10^3/uL (150-450)
[2020-04-02] MEDS ORDERED: POTASSIUM CHLORIDE 20 MEQ PACKET NG ONE (17:00)
--- NOTE | 2020-04-02 17:04 | PDOC CRITICAL CARE PROG REPORT ---
General Date:: 04/02/20 ICU Day:: 50 Hospital Day:: 54 Resuscitation Status: Full Code Events in the past 12 to 24 Hours:: This 69-year-old male was admitted on 02/08/2020 with dyspnea and leg weakness. He reported falling out of his truck a few days prior to presentation. He transferred to the ICU on 02/12/2020 after requiring endotracheal intubation due to acute respiratory failure secondary to COVID-19 pneumonia. He is required prolonged mechanical ventilatory support and underwent tracheostomy on 03/11/2020. 03/30: Tolerates trach collar trial during the day. Goes on mechanical ventilatory support during sleep and at nighttime. Patient is awake, alert and interactive. He certainly demonstrates flat affect. Follows commands. Generalized weakness. Edema. Continues to struggle with worsening sacral decubitus ulcer. Anticipated debridement later this week. Digoxin level this morning 2.27. Underwent hemodialysis this morning. 03/31: Anticipating debridement of sacral decubitus ulcer today. Tolerating trach collar during the day. Using ventilator support at night. Ryan catheter was placed in the interim with bladder scan showing over 100 mL of urine; however, the patient has produced approximately 10 mL/h. Linezolid has been changed to vancomycin in the interim, in hopes of starting SSRI. 04/01: Underwent debridement of sacral decubitus ulcer yesterday. Nurse reported excessive oozing into the bandages. DDAVP was administered due to concerns of platelet dysfunction given his renal failure. I suspect the "improvement "in creatinine seen on yesterday's lab was a lab error, as today's lab results are more consistent with expected findings. Hemoglobin 8.4> 6.8. On hemodialysis this morning. Also, scheduled to receive 2 units PRBC over dialysis. Platelets 108. Not on heparin. Not on famotidine. Has been on Nepro for nutritional support along with Prosource. Tolerating trach collar trial during the day. Using vent support at night. He is remaining on ventilator support during his dialysis session. Demonstrating Darío-Manuel respirations. Psychologically, the patient appears to be more interactive and perhaps in better spirits. Did start on Celexa yesterday. 04/02: Temporary hemodialysis catheter and central venous catheter were removed yesterday. Currently, on a "line holiday". Plans in place for PermCath placement tomorrow morning. May need additional access, probably in the form of a PICC line. Mood seems to be improving. More interactive. Normalized weakness. On Nepro @ 40 with Prosource. Chest x-ray continues to show steady improvement, albeit with persistent bibasilar space disease. Continues to tolerate trach collar during the day. On vent support at night. COVID-19 testing (03/30) finally returned to negative result in the interim. Review of systems relevant to events:: Pulmonary, CV, renal, ID. Reason for ICU Addmission:: On trach collar at 40%. Infected sacral wound. - Medications: Medications reviewed and adjusted accordingly: Yes Physical Exam Vital Signs: Temp Pulse Resp BP Pulse Ox 98.4 F 72 25 H 131/35 H 100 04/02/20 08:00 04/02/20 08:00 04/02/20 08:12 04/02/20 08:12 04/02/20 08:12 Pulse Oximeter Nocturnal Start: 02/08/20 13:55 Freq: RTQ4 Status: Complete Protocol: Document 02/09/20 04:00 LRO (Rec: 02/09/20 05:38 LRO [email or web address]) Nocturnal Pulse Oximetry Equipment Usage Equipment in Use Oxygen Delivery Method (includes room Room Air air) O2 Sat by Pulse Oximetry (92-100) 95 Continuous SpO2 Machine # 2 Pulse Oximeter Nocturnal Start: 02/10/20 11:39 Freq: RTQ4 Status: Complete Protocol: Document 02/11/20 04:06 PMU (Rec: 02/11/20 05:06 PMU [email or web address]) Nocturnal Pulse Oximetry Equipment Usage Equipment in Use Oxygen Delivery Method (includes room Room Air air) O2 Sat by Pulse Oximetry (92-100) 93 Continuous SpO2 Machine # N2 Intake & Output 04/01/20 04/02/20 04/03/20 06:59 06:59 06:59 Intake Total 777.5 1641 Output Total 395 2775 5 Balance 382.5 -1134 -5 Weight 100.2 kg 99.3 kg Weight/Height Weight 99.3 kg Height 1.75 m General appearance: PRESENT: no acute distress, well-developed, well-nourished Head exam: PRESENT: atraumatic, normocephalic Eye exam: PRESENT: conjunctiva pink, EOMI, PERRLA. ABSENT: scleral icterus Mouth exam: PRESENT: moist, tongue midline Neck exam: PRESENT: tracheostomy. ABSENT: carotid bruit, JVD, lymphadenopathy, thyromegaly Respiratory exam: PRESENT: clear to auscultation kevyn. ABSENT: rales, rhonchi, wheezes Cardiovascular exam: PRESENT: RRR. ABSENT: diastolic murmur, rubs, systolic murmur Pulses: PRESENT: normal dorsalis pedis pul GI/Abdominal exam: PRESENT: normal bowel sounds, soft. ABSENT: distended, guarding, mass, organolmegaly, rebound, tenderness Extremities exam: PRESENT: full ROM, pedal edema, +2 edema. ABSENT: calf tenderness, clubbing Musculoskeletal exam: PRESENT: normal inspection. ABSENT: deformity Neurological exam: PRESENT: alert, awake, reflexes normal, CN II-XII grossly intact, motor sensory deficit - Generalized motor weakness Psychiatric exam: ABSENT: agitated, anxious Skin exam: PRESENT: other - Stage IV sacral decubitus Tubes/Lines: PRESENT: Nasogastic Tube Laboratory/Radiographs Laboratory Results: 04/01/20 04/01/20 05:10 21:00 WBC 12.3 H RBC 3.05 L Hgb 8.9 L D Hct 26.8 L MCV 88 D MCH 29.3 MCHC 33.3 RDW 20.2 H Plt Count 95 L Seg Neutrophils % 84.0 H Blood Type O POSITIVE Antibody Screen NEGATIVE 02/08/20 02/08/20 02/21/20 09:49 13:11 04:50 Troponin I 0.160 0.155 NT-Pro-B Natriuret Pep 5540 H 88827 H 02/26/20 03/09/20 03/20/20 05:35 04:00 06:10 Troponin I NT-Pro-B Natriuret Pep 64600 H 61608 H 11327 H Impressions: Hip/Pelvis X-Ray 02/08/20 00:00 IMPRESSION: No acute fracture. Severe degenerative changes of the left hip. Knee X-Ray 02/08/20 00:00 IMPRESSION: NEGATIVE STUDY OF THE RIGHT KNEE. NO RADIOGRAPHIC EVIDENCE OF ACUTE INJURY. Renal Ultrasound 02/21/20 00:00 IMPRESSION: Increased echogenicity of the renal parenchyma suggestive of underlying chronic medical renal disease. There is no hydronephrosis. There is a Ryan catheter within the urinary bladder. Head CT 03/08/20 08:56 IMPRESSION: MILD CHRONIC CHANGES OF ATROPHY AND MICROVASCULAR ISCHEMIA. NO ACUTE PROCESS. EVIDENCE OF ACUTE STROKE: NO. Chest CT 03/08/20 10:12 IMPRESSION: Extensive bilateral infiltrates. No pneumothorax. KUB X-Ray 04/01/20 00:00 IMPRESSION: NG tube as described. All labs, radiographs, diagnostic studies and EKGs were personally reviewed: Yes In addition, reports of radiographic and diagnostic studies were read: Yes Assessment and Plan - Diagnosis (1) Acute respiratory failure due to COVID-19 Is this a current diagnosis for this admission?: Yes Plan: * Trach collar during the day. * Mechanical ventilatory support at night. * Repeat SARS-2-CoV test negative (03/30) (2) Gram negative sepsis Is this a current diagnosis for this admission?: Yes Plan: * Secondary to wound infection/sacral decubitus, which is still isolating Pseudomonas aeruginosa, Enterobacter cloacae and MRSA. * Blood cultures (03/25) were noted to isolate Enterobacter species. * Continue meropenem. * Currently on a "line holiday". Blood cultures were obtained on 04/01/2020. * Anticipating placement of PermCath in a.m. May also need PICC line placement. (3) Decubitus ulcer of sacral region, unstageable Is this a current diagnosis for this admission?: Yes Plan: * Present on admission. * General surgery help appreciated. * Zyvox has been changed to vancomycin in the interim in hopes of starting SSRI for the patient's depressive mood. (4) Polyneuropathy associated with critical illness Is this a current diagnosis for this admission?: Yes Plan: * PT/OT consult. (5) CKD (chronic kidney disease) stage 5, GFR less than 15 ml/min Is this a current diagnosis for this admission?: Yes Plan: * On dialysis M/W/F. * Nephrology assistance appreciated. * PermCath placement in a.m. (6) Nonischemic cardiomyopathy Is this a current diagnosis for this admission?: Yes (7) Atrial fibrillation Qualifiers: Atrial fibrillation type: persistent (not longstanding) Qualified Code(s): I48.19 - Other persistent atrial fibrillation; I48.1 - Persistent atrial fibrillation Is this a current diagnosis for this admission?: Yes (8) Darío-Manuel respiration Is this a current diagnosis for this admission?: Yes (9) Vitamin D deficiency Is this a current diagnosis for this admission?: Yes (10) Hyponatremia Is this a current diagnosis for this admission?: Yes (11) Occult blood in stools Is this a current diagnosis for this admission?: Yes (12) Normocytic anemia Is this a current diagnosis for this admission?: Yes (13) Abnormal LFTs Is this a current diagnosis for this admission?: Yes (14) Pneumonia due to gram-negative bacteria Is this a current diagnosis for this admission?: Yes (15) MRSA pneumonia Qualifiers: Laterality: bilateral Lung location: unspecified part of lung Qualified Code(s): J15.212 - Pneumonia due to Methicillin resistant Staphylococcus aureus Is this a current diagnosis for this admission?: Yes Critical Time Critical Time (minutes): 60 Level of Care: ICU -: 1. The care of a critical patient is a dynamic process. This note is a risk control representative synopsis but static in nature. The timeframe for treatments given in order is not necessarily the actual time these treatments may have been done. 2. This patient requires critical care secondary to ongoing requirements for th erapy not offered or safe outside the critical care environment. Transfer to a lower level of care will result in altered life or limb morbidity and mortality. 3. Multidisciplinary rounds completed. 4. ABCDE bundle addressed.
[2020-04-03] MEDS: LEVALBUTEROL HCL NEB 1.25 MG/3 ML AMPUL NEB SCH ×4 (02:33→20:34)
[2020-04-03 04:40] LABS: ABSOLUTE BASOPHILS # (AUTO) 0.1 10^3/uL (0.0-0.2); ABSOLUTE EOSINOPHILS # (AUTO) 0.5 10^3/uL (0.0-0.6); ABSOLUTE LYMPHOCYTES (AUTO) 1.9 10^3/uL (0.5-4.7); ABSOLUTE MONOCYTES (AUTO) 0.8 10^3/uL (0.1-1.4); ABSOLUTE NEUT (AUTO) 9.7 10^3/uL (1.7-8.2); BASOPHILS % (AUTO) 0.9 % (0-2); EOSINOPHILS % (AUTO) 3.6 % (0-6); HEMATOCRIT 24.2 % (37.9-51.0); HEMOGLOBIN 8.2 g/dL (13.5-17.0); LYMPHOCYTES % (AUTO) 14.6 % (13-45); MEAN CORPUSCULAR HEMOGLOBIN 29.4 pg (27.0-33.4); MEAN CORPUSCULAR HGB CONC 34.1 g/dL (32.0-36.0); MEAN CORPUSCULAR VOLUME 86 fl (80-97); MONOCYTES % (AUTO) 6.4 % (3-13); RED CELL DISTRIBUTION WIDTH 20.3 % (11.5-14.0); SEGMENTED NEUTROPHILS % (AUTO) 74.5 % (42-78); TOTAL CELLS COUNTED % (AUTO) 100 %
[2020-04-03] MEDS ORDERED: EPOETIN ALFA-EPBX 20,000 UNIT in SYRINGE, DISPOSABLE, 1 EACH IV PRN (05:00)
[2020-04-03] MEDS ORDERED: HEPARIN SOD (PORCINE) 1,000 UNIT/ML 10 ML VIAL IV PRN (05:00)
[2020-04-03 05:17] LABS: PLATELET COUNT 92 10^3/uL (150-450)
[2020-04-03] MEDS: HYDROMORPHONE HCL INJ/PF 2 MG/ML AMPULE IV PRN (06:12)
[2020-04-03] MEDS: MEROPENEM 1 GM in NORMAL SALINE 50 ML IV SCH ×3 (06:16→22:15)
--- NOTE | 2020-04-03 07:39 | Operative Report ---
Nonrecallable Operative Report DATE OF SURGERY: 04/03/20 PREOPERATIVE DIAGNOSIS: 1 bacteremia. 2. Need for dialysis today POSTOPERATIVE DIAGNOSIS: Same as above OPERATION: 1. Ultrasound-guided central venous puncture. 2. Right femoral temporary dialysis catheter placement SURGEON: SWATI GUILLEN ANESTHESIA: Local TISSUE REMOVED OR ALTERED: None COMPLICATIONS: None apparent ESTIMATED BLOOD LOSS: Minimal PROCEDURE: Indication for the procedure: This is a patient in need of dialysis today. The patient has recently positive blood cultures. He has multiple sources of infection, including a previously placed left femoral Vas-Cath. The Vas-Cath was removed, however he is in need of continued dialysis. The patient will need a permacath eventually, but with positive blood cultures, placement of a permacath at this time is premature. Procedure in detail: After informed consent was obtained from the patient's , the patient was laid in the supine position in the ICU. The area of the right groin was prepped and draped in a normal sterile fashion. An ultrasound was used to identify the left femoral vein. Under direct ultrasonic guidance, the left femoral vein was cannulated using the supplied access needle. Dark venous, nonpulsatile blood was returned in the syringe. The wire was inserted easily into the vein. The wire was confirmed to be within the lumen of the vein using the ultrasound device. Picture documentation was obtained. The catheter was then slid over the wire using a modified Seldinger technique. The catheter was sutured to the skin. The catheter was aspirated and flushed x3 with sterile saline. An occlusive dressing was placed, and the procedure was concluded. All sponge, instrument, needle counts were correct x2. Condition: critical in ICU
[2020-04-03] MEDS: LABETALOL HCL 200 MG TABLET NG SCH ×2 (11:15→22:14)
[2020-04-03] MEDS: CHOLECALCIFEROL (D3) 1,000 UNIT (25 MCG) TABLET NG SCH ×3 (11:15→18:26)
[2020-04-03] MEDS: PANTOPRAZOLE SODIUM 40 MG VIAL IV SCH (11:15)
[2020-04-03] MEDS: CITALOPRAM HYDROBROMIDE 20 MG TABLET NG SCH (11:15)
[2020-04-03] MEDS: HYDRALAZINE HCL 25 MG TABLET NG SCH ×2 (11:15→22:14)
[2020-04-03] MEDS: CALCITRIOL 1 MCG/ML ORAL SOLN 15 ML NG SCH (11:16)
[2020-04-03] MEDS: AMINO AC/PROTEIN HYDR/WHEY PRO 11 GM/45 ML PKT NG SCH ×4 (11:16→22:17)
[2020-04-03] MEDS: COLLAGENASE CLOSTRIDIUM HIST. OINT 30 GM TOP SCH (11:17)
[2020-04-03 11:44] LABS: INTERNATIONAL RATION (INR) 1.11; PROTHROMBIN TIME 14.5 SEC (11.4-15.4)
[2020-04-03 11:45] LABS: PARTIAL THROMBOPLASTIN TIME 33.8 SEC (23.5-35.8)
[2020-04-03 11:48] LABS: ANION GAP 10 (5-19); BLOOD UREA NITROGEN 76 mg/dL (7-20); CALCIUM 8.4 mg/dL (8.4-10.2); CARBON DIOXIDE 23 mmol/L (22-30); CHLORIDE 102 mmol/L (98-107); GLUCOSE 85 mg/dL (75-110); PHOSPHORUS 4.9 mg/dL (2.5-4.5); POTASSIUM 4.1 mmol/L (3.6-5.0)
[2020-04-03] MEDS: POTASSIUM CHLORIDE 10 MEQ TABLET.ER PO SCH (11:59)
[2020-04-03] MEDS ORDERED: LIDOCAINE 1%/EPINEPHRINE INJ 20 ML VIAL INJ PRN (12:11)
--- NOTE | 2020-04-03 14:03 | PDOC PROGRESS REPORT ---
Subjective Progress Note for:: 04/03/20 Reason For Visit: Patient in the ICU undergoing dialysis. Patient seen today in the hospital. No changes than seen earlier. Labs and medications were reviewed. Dialysis orders reviewed with the treating dialysis nurse. He has had his earlier temporary Femoral cath removed and a new one has been placed this morning as a scheduled IJ permacath was postponed because if ID issues. Physical Exam Vital Signs: Temp Pulse Resp BP Pulse Ox 98.2 F 62 35 H 160/47 H 96 04/03/20 05:37 04/03/20 13:52 04/03/20 13:52 04/03/20 11:13 04/03/20 13:52 Pulse Oximeter Nocturnal Start: 02/08/20 13:55 Freq: RTQ4 Status: Complete Protocol: Document 02/09/20 04:00 LRO (Rec: 02/09/20 05:38 LRO [id number]) Nocturnal Pulse Oximetry Equipment Usage Equipment in Use Oxygen Delivery Method (includes room Room Air air) O2 Sat by Pulse Oximetry (92-100) 95 Continuous SpO2 Machine # 2 Pulse Oximeter Nocturnal Start: 02/10/20 11:39 Freq: RTQ4 Status: Complete Protocol: Document 02/11/20 04:06 PMU (Rec: 02/11/20 05:06 PMU [email or web address]) Nocturnal Pulse Oximetry Equipment Usage Equipment in Use Oxygen Delivery Method (includes room Room Air air) O2 Sat by Pulse Oximetry (92-100) 93 Continuous SpO2 Machine # N2 Intake & Output 04/02/20 04/03/20 04/04/20 06:59 06:59 06:59 Intake Total 1691 270 Output Total 1885 371 15 Balance -1084 -101 -15 Weight 99.3 kg 107.5 kg General appearance: PRESENT: no acute distress Cardiovascular exam: PRESENT: +S1, +S2 GI/Abdominal exam: PRESENT: normal bowel sounds, soft. ABSENT: organomegaly, tenderness Results Laboratory Results: 04/03/20 04:12 04/03/20 11:17 04/02/20 04/02/20 04/03/20 15:01 15:01 04:12 WBC 11.9 H 13.0 H RBC 2.78 L 2.80 L Hgb 8.2 L 8.2 L Hct 24.0 L 24.2 L MCV 86 86 MCH 29.5 29.4 MCHC 34.1 34.1 RDW 20.3 H 20.3 H Plt Count 96 L 92 L Seg Neutrophils % 74.5 Sodium 133.2 L Potassium 3.4 L Chloride 100 Carbon Dioxide 25 Anion Gap 8 BUN 63 H Creatinine 1.83 H Est GFR ( Amer) 44 L Glucose 109 Calcium 8.5 Phosphorus 4.2 Magnesium 1.7 04/03/20 11:17 WBC RBC Hgb Hct MCV MCH MCHC RDW Plt Count Seg Neutrophils % Sodium 135.4 L Potassium 4.1 Chloride 102 Carbon Dioxide 23 Anion Gap 10 BUN 76 H Creatinine 1.95 H Est GFR ( Amer) 41 L Glucose 85 Calcium 8.4 Phosphorus 4.9 H Magnesium 1.8 02/08/20 02/08/20 02/21/20 09:49 13:11 04:50 Troponin I 0.160 0.155 NT-Pro-B Natriuret Pep 5540 H 33337 H 02/26/20 03/09/20 03/20/20 05:35 04:00 06:10 Troponin I NT-Pro-B Natriuret Pep 69929 H 34125 H 67666 H Impressions: Hip/Pelvis X-Ray 02/08/20 00:00 IMPRESSION: No acute fracture. Severe degenerative changes of the left hip. Knee X-Ray 02/08/20 00:00 IMPRESSION: NEGATIVE STUDY OF THE RIGHT KNEE. NO RADIOGRAPHIC EVIDENCE OF ACUTE INJURY. Renal Ultrasound 02/21/20 00:00 IMPRESSION: Increased echogenicity of the renal parenchyma suggestive of underlying chronic medical renal disease. There is no hydronephrosis. There is a Ryan catheter within the urinary bladder. Head CT 03/08/20 08:56 IMPRESSION: MILD CHRONIC CHANGES OF ATROPHY AND MICROVASCULAR ISCHEMIA. NO ACUTE PROCESS. EVIDENCE OF ACUTE STROKE: NO. Chest CT 03/08/20 10:12 IMPRESSION: Extensive bilateral infiltrates. No pneumothorax. KUB X-Ray 04/01/20 00:00 IMPRESSION: NG tube as described. Chest X-Ray 04/02/20 05:00 IMPRESSION: NO SIGNIFICANT INTERVAL CHANGE IN APPEARANCE OF THE CHEST. Assessment & Plan - Diagnosis (1) Acute kidney injury superimposed on chronic kidney disease Is this a current diagnosis for this admission?: Yes Plan: Acute on chronic kidney disease with patient having underlying baseline creatinine of around 1.7-2. Currently remains anuric. Initiated hemodialysis through a temporary catheter. Dialysis is ongoing. Plan to remove 2-3 L of fluid as tolerated. Discussed and reviewed dialysis orders with the treating dialysis nurse. Plan for IJ PermCath placement. (2) Acute on chronic combined systolic (congestive) and diastolic (congestive) heart failure Is this a current diagnosis for this admission?: Yes Plan: Improved monitor and see response to gentle dialysis. (3) Acute respiratory failure due to COVID-19 Is this a current diagnosis for this admission?: Yes Plan: Remains intubated and less sedated. Now status post tracheostomy. Being managed by manager fleet. Monitor. (4) Atrial fibrillation Qualifiers: Atrial fibrillation type: persistent (not longstanding) Qualified Code(s): I48.19 - Other persistent atrial fibrillation; I48.1 - Persistent atrial fibrillation Is this a current diagnosis for this admission?: Yes Plan: Currently rate controlled. Monitor. (5) COVID-19 virus infection Is this a current diagnosis for this admission?: Yes Plan: As per manager fleet.His last serology for COVID 19 was done on 03/30 and was negative. (6) Anemia Qualifiers: Anemia type: iron deficiency Is this a current diagnosis for this admission?: Yes Plan: Today's hemoglobin is 8.2. Patient is on erythropoietin. (7) Hyponatremia Is this a current diagnosis for this admission?: Yes Plan: See response to fluid removal. Monitor. (8) Decubitus ulcer of sacral region, unstageable Is this a current diagnosis for this admission?: Yes Plan: Polymicrobial. On antibiotics being managed by manager fleet. (9) MRSA pneumonia Qualifiers: Laterality: bilateral Lung location: unspecified part of lung Qualified Code(s): J15.212 - Pneumonia due to Methicillin resistant Staphylococcus aureus Is this a current diagnosis for this admission?: Yes Plan: Being managed by manager fleet.
[2020-04-03] MEDS: POTASSIUM CHLORIDE 20 MEQ PACKET NG SCH (14:27)
--- NOTE | 2020-04-03 18:45 | PDOC CRITICAL CARE PROG REPORT ---
General Date:: 04/03/20 ICU Day:: 51 Ventilator Day:: 55 Hospital Day:: 55 Resuscitation Status: Full Code Events in the past 12 to 24 Hours:: This 69-year-old male was admitted on 02/08/2020 with dyspnea and leg weakness. He reported falling out of his truck a few days prior to presentation. He transferred to the ICU on 02/12/2020 after requiring endotracheal intubation due to acute respiratory failure secondary to COVID-19 pneumonia. He is required prolonged mechanical ventilatory support and underwent tracheostomy on 03/11/2020. 03/30: Tolerates trach collar trial during the day. Goes on mechanical v entilatory support during sleep and at nighttime. Patient is awake, alert and interactive. He certainly demonstrates flat affect. Follows commands. Generalized weakness. Edema. Continues to struggle with worsening sacral decubitus ulcer. Anticipated debridement later this week. Digoxin level this morning 2.27. Underwent hemodialysis this morning. 03/31: Anticipating debridement of sacral decubitus ulcer today. Tolerating trach collar during the day. Using ventilator support at night. Ryan catheter was placed in the interim with bladder scan showing over 100 mL of urine; however, the patient has produced approximately 10 mL/h. Linezolid has been changed to vancomycin in the interim, in hopes of starting SSRI. 04/01: Underwent debridement of sacral decubitus ulcer yesterday. Nurse reported excessive oozing into the bandages. DDAVP was administered due to concerns of platelet dysfunction given his renal failure. I suspect the "improvement "in creatinine seen on yesterday's lab was a lab error, as today's lab results are more consistent with expected findings. Hemoglobin 8.4> 6.8. On hemodialysis this morning. Also, scheduled to receive 2 units PRBC over dialysis. Platelets 108. Not on heparin. Not on famotidine. Has been on Nepro for nutritional support along with Prosource. Tolerating trach collar trial during the day. Using vent support at night. He is remaining on ventilator support during his dialysis session. Demonstrating Darío-Manuel respirations. Psychologically, the patient appears to be more interactive and perhaps in better spirits. Did start on Celexa yesterday. 04/02: Temporary hemodialysis catheter and central venous catheter were removed yesterday. Currently, on a "line holiday". Plans in place for PermCath placement tomorrow morning. May need additional access, probably in the form of a PICC line. Mood seems to be improving. More interactive. Normalized weakness. On Nepro @ 40 with Prosource. Chest x-ray continues to show steady improvement, albeit with persistent bibasilar space disease. Continues to tolerate trach collar during the day. On vent support at night. COVID-19 testing (03/30) finally returned to negative result in the interim. 04/03: New temporary hemodialysis catheter is been placed in the right femoral vein by Dr. Talley. Case discussed with Dr. Talley with plans for PermCath placement (and possible percutaneous gastrostomy and diverting colostomy) next week. On Nepro. Continues to tolerate trach collar during the day. On vent support at night. Review of systems relevant to events:: Pulmonary, CV, renal, ID. Reason for ICU Addmission:: On trach collar at 40%. Infected sacral wound. - Medications: Medications reviewed and adjusted accordingly: Yes Physical Exam Vital Signs: Temp Pulse Resp BP Pulse Ox 98.2 F 71 22 H 140/60 H 100 04/03/20 05:37 04/03/20 02:33 04/03/20 07:30 04/03/20 07:13 04/03/20 07:30 Pulse Oximeter Nocturnal Start: 02/08/20 13:55 Freq: RTQ4 Status: Complete Protocol: Document 02/09/20 04:00 LRO (Rec: 02/09/20 05:38 LRO [id number]) Nocturnal Pulse Oximetry Equipment Usage Equipment in Use Oxygen Delivery Method (includes room Room Air air) O2 Sat by Pulse Oximetry (92-100) 95 Continuous SpO2 Machine # 2 Pulse Oximeter Nocturnal Start: 02/10/20 1 1:39 Freq: RTQ4 Status: Complete Protocol: Document 02/11/20 04:06 PMU (Rec: 02/11/20 05:06 PMU [id number]) Nocturnal Pulse Oximetry Equipment Usage Equipment in Use Oxygen Delivery Method (includes room Room Air air) O2 Sat by Pulse Oximetry (92-100) 93 Continuous SpO2 Machine # N2 Intake & Output 04/02/20 04/03/20 04/04/20 06:59 06:59 06:59 Intake Total 1691 270 Output Total 2775 371 0 Balance -1084 -101 0 Weight 99.3 kg 107.5 kg Weight/Height Weight 107.5 kg Height 1.75 m General appearance: PRESENT: no acute distress, well-developed, well-nourished Head exam: PRESENT: atraumatic, normocephalic Eye exam: PRESENT: conjunctiva pink, EOMI, PERRLA. ABSENT: scleral icterus Mouth exam: PRESENT: moist, tongue midline Neck exam: PRESENT: tracheostomy. ABSENT: carotid bruit, JVD Respiratory exam: PRESENT: clear to auscultation kevyn. ABSENT: rales, rhonchi, wheezes Cardiovascular exam: PRESENT: irregular rhythm. ABSENT: diastolic murmur, rubs, systolic murmur Pulses: PRESENT: normal dorsalis pedis pul GI/Abdominal exam: PRESENT: normal bowel sounds, soft. ABSENT: distended, guarding, mass, organolmegaly, rebound, tenderness Extremities exam: PRESENT: full ROM, pedal edema, +1 edema. ABSENT: calf tenderness, clubbing Musculoskeletal exam: PRESENT: normal inspection. ABSENT: deformity Neurological exam: PRESENT: alert, awake, oriented to person, oriented to place, CN II-XII grossly intact. ABSENT: motor sensory deficit Psychiatric exam: PRESENT: depressed. ABSENT: agitated, anxious Skin exam: PRESENT: warm, other - Stage IV sacral decubitus. Lateral lower extremity prescription skin breakdown, unstageable.. ABSENT: cyanosis, rash Laboratory/Radiographs Laboratory Results: 04/03/20 04:12 04/02/20 15:01 04/02/20 04/02/20 04/02/20 09:13 09:13 15:01 WBC Cancelled RBC Cancelled Hgb Cancelled Hct Cancelled MCV Cancelled MCH Cancelled MCHC Cancelled RDW Cancelled Plt Count Cancelled Seg Neutrophils % Sodium Cancelled 133.2 L Potassium Cancelled 3.4 L Chloride Cancelled 100 Carbon Dioxide Cancelled 25 Anion Gap Cancelled 8 BUN Cancelled 63 H Creatinine Cancelled 1.83 H Est GFR ( Amer) Cancelled 44 L Est GFR (Non-Af Amer) Cancelled Glucose Cancelled 109 Calcium Cancelled 8.5 Phosphorus Cancelled 4.2 Magnesium Cancelled 1.7 04/02/20 04/03/20 15:01 04:12 WBC 11.9 H 13.0 H RBC 2.78 L 2.80 L Hgb 8.2 L 8.2 L Hct 24.0 L 24.2 L MCV 86 86 MCH 29.5 29.4 MCHC 34.1 34.1 RDW 20.3 H 20.3 H Plt Count 96 L 92 L Seg Neutrophils % 74.5 Sodium Potassium Chloride Carbon Dioxide Anion Gap BUN Creatinine Est GFR ( Amer) Est GFR (Non-Af Amer) Glucose Calcium Phosphorus Magnesium 02/08/20 02/08/20 02/21/20 09:49 13:11 04:50 Troponin I 0.160 0.155 NT-Pro-B Natriuret Pep 5540 H 97137 H 02/26/20 03/09/20 03/20/20 05:35 04:00 06:10 Troponin I NT-Pro-B Natriuret Pep 95447 H 37724 H 53810 H Impressions: Hip/Pelvis X-Ray 02/08/20 00:00 IMPRESSION: No acute fracture. Severe degenerative changes of the left hip. Knee X-Ray 02/08/20 00:00 IMPRESSION: NEGATIVE STUDY OF THE RIGHT KNEE. NO RADIOGRAPHIC EVIDENCE OF ACUTE INJURY. Renal Ultrasound 02/21/20 00:00 IMPRESSION: Increased echogenicity of the renal parenchyma suggestive of underlying chronic medical renal disease. There is no hydronephrosis. There is a Ryan catheter within the urinary bladder. Head CT 03/08/20 08:56 IMPRESSION: MILD CHRONIC CHANGES OF ATROPHY AND MICROVASCULAR ISCHEMIA. NO ACUTE PROCESS. EVIDENCE OF ACUTE STROKE: NO. Chest CT 03/08/20 10:12 IMPRESSION: Extensive bilateral infiltrates. No pneumothorax. KUB X-Ray 04/01/20 00:00 IMPRESSION: NG tube as described. Chest X-Ray 04/02/20 05:00 IMPRESSION: NO SIGNIFICANT INTERVAL CHANGE IN APPEARANCE OF THE CHEST. All labs, radiographs, diagnostic studies and EKGs were personally reviewed: Yes In addition, reports of radiographic and diagnostic studies were read: Yes Assessment and Plan - Diagnosis (1) Acute respiratory failure due to COVID-19 Is this a current diagnosis for this admission?: Yes Plan: * Trach collar during the day. * Mechanical ventilatory support at night. * Repeat SARS-2-CoV test negative (03/30). * Discontinue special airborne precautions, as the patient has been fever free x24 hours. Last positive COVID-19 test was 03/05/2020. Clinically, improving. * Speech/swallow evaluation today. (2) Gram negative sepsis Is this a current diagnosis for this admission?: Yes Plan: * Secondary to wound infection/sacral decubitus, which is still isolating Pseudomonas aeruginosa, Enterobacter cloacae and MRSA. * Blood cultures (03/25) were noted to isolate Enterobacter species. * Continue meropenem. * Currently on a "line holiday". Blood cultures were obtained on 04/01/2020. * Anticipating placement of PermCath next week. (3) Decubitus ulcer of sacral region, unstageable Is this a current diagnosis for this admission?: Yes Plan: * Present on admission. * General surgery help appreciated. * Zyvox has been changed to vancomycin in the interim in hopes of starting SSRI for the patient's depressive mood. * Anticipate diverting colostomy next week. (4) Polyneuropathy associated with critical illness Is this a current diagnosis for this admission?: Yes (5) CKD (chronic kidney disease) stage 5, GFR less than 15 ml/min Is this a current diagnosis for this admission?: Yes Plan: * On dialysis M/W/F. * Nephrology assistance appreciated. * On "line holiday" x24 hours with new temporary hemodialysis catheter has been placed (04/03) for dialysis today (and possibly Monday). Original temporary HD catheter tip culture is isolating gram-positive cocci in clusters from the broth subculture only (probably a contaminant). * PermCath placement next week. (6) Nonischemic cardiomyopathy Is this a current diagnosis for this admission?: Yes (7) Atrial fibrillation Qualifiers: Atrial fibrillation type: persistent (not longstanding) Qualified Code(s): I48.19 - Other persistent atrial fibrillation; I48.1 - Persistent atrial fibrillation Is this a current diagnosis for this admission?: Yes Plan: * Hold digoxin. * Eliquis on hold for debridement and may need to stay on hold until tunneled HD catheter has been placed. * Will start heparin infusion in the meantime. In light of the patient's thrombocytopenia, I will go ahead and check for heparin-induced thrombocytopenia prior to initiating the heparin infusion. (8) Darío-Manuel respiration Is this a current diagnosis for this admission?: Yes (9) Vitamin D deficiency Is this a current diagnosis for this admission?: Yes (10) Hyponatremia Is this a current diagnosis for this admission?: Yes Plan: Improving (11) Occult blood in stools Is this a current diagnosis for this admission?: Yes (12) Normocytic anemia Is this a current diagnosis for this admission?: Yes (13) Abnormal LFTs Is this a current diagnosis for this admission?: Yes (14) Pneumonia due to gram-negative bacteria Is this a current diagnosis for this admission?: Yes (15) MRSA pneumonia Qualifiers: Laterality: bilateral Lung location: unspecified part of lung Qualified Code(s): J15.212 - Pneumonia due to Methicillin resistant Staphylococcus aureus Is this a current diagnosis for this admission?: Yes Critical Time Critical Time (minutes): 60 Level of Care: ICU -: 1. The care of a critical patient is a dynamic process. This note is a patient registration representative synopsis but static in nature. The timeframe for treatments given in order is not necessarily the actual time these treatments may have been done. 2. This patient requires critical care secondary to ongoing requirements for therapy not offered or safe outside the critical care environment. Transfer to a lower level of care will result in altered life or limb morbidity and mortality. 3. Multidisciplinary rounds completed. 4. ABCDE bundle addressed.
[2020-04-04] MEDS: LEVALBUTEROL HCL NEB 1.25 MG/3 ML AMPUL NEB SCH ×4 (02:14→20:27)
[2020-04-04 05:16] LABS: ABSOLUTE BASOPHILS # (AUTO) 0.1 10^3/uL (0.0-0.2); ABSOLUTE EOSINOPHILS # (AUTO) 0.3 10^3/uL (0.0-0.6); ABSOLUTE LYMPHOCYTES (AUTO) 1.4 10^3/uL (0.5-4.7); ABSOLUTE MONOCYTES (AUTO) 0.7 10^3/uL (0.1-1.4); ABSOLUTE NEUT (AUTO) 10.6 10^3/uL (1.7-8.2); BASOPHILS % (AUTO) 0.5 % (0-2); EOSINOPHILS % (AUTO) 2.5 % (0-6); HEMATOCRIT 25.3 % (37.9-51.0); HEMOGLOBIN 8.6 g/dL (13.5-17.0); LYMPHOCYTES % (AUTO) 10.9 % (13-45); MEAN CORPUSCULAR HEMOGLOBIN 29.8 pg (27.0-33.4); MEAN CORPUSCULAR VOLUME 88 fl (80-97); MONOCYTES % (AUTO) 5.4 % (3-13); PLATELET COUNT 117 10^3/uL (150-450); RED BLOOD COUNT 2.89 10^6/uL (4.35-5.55); RED CELL DISTRIBUTION WIDTH 19.9 % (11.5-14.0); SEGMENTED NEUTROPHILS % (AUTO) 80.7 % (42-78); TOTAL CELLS COUNTED % (AUTO) 100 %; WHITE BLOOD COUNT 13.1 10^3/uL (4.0-10.5)
[2020-04-04] MEDS: MEROPENEM 1 GM in NORMAL SALINE 50 ML IV SCH ×3 (05:29→21:53)
[2020-04-04 05:34] LABS: ANION GAP 11 (5-19); CALCIUM 8.2 mg/dL (8.4-10.2); CARBON DIOXIDE 23 mmol/L (22-30); CHLORIDE 101 mmol/L (98-107); GLUCOSE 118 mg/dL (75-110); POTASSIUM 3.6 mmol/L (3.6-5.0)
[2020-04-04 05:38] LABS: PREALBUMIN 17.1 mg/dL (17.6-36.0)
[2020-04-04 05:43] LABS: BLOOD UREA NITROGEN 46 mg/dL (7-20); DIGOXIN 1.56 ng/mL (0.8-2.0)
[2020-04-04] MEDS ORDERED: POTASSIUM CHLORIDE 20 MEQ PACKET PO ONE (09:00)
[2020-04-04] MEDS: HYDRALAZINE HCL 25 MG TABLET NG SCH ×2 (09:45→21:54)
[2020-04-04] MEDS: CITALOPRAM HYDROBROMIDE 20 MG TABLET NG SCH (09:45)
[2020-04-04] MEDS: AMINO AC/PROTEIN HYDR/WHEY PRO 11 GM/45 ML PKT NG SCH ×4 (09:45→21:54)
[2020-04-04] MEDS: POTASSIUM CHLORIDE 20 MEQ PACKET NG SCH (09:45)
[2020-04-04] MEDS: LABETALOL HCL 200 MG TABLET NG SCH ×2 (09:45→21:53)
[2020-04-04] MEDS: CHOLECALCIFEROL (D3) 1,000 UNIT (25 MCG) TABLET NG SCH ×3 (09:45→18:55)
[2020-04-04] MEDS: PANTOPRAZOLE SODIUM 40 MG VIAL IV SCH (09:45)
[2020-04-04] MEDS: CALCITRIOL 1 MCG/ML ORAL SOLN 15 ML NG SCH (09:46)
[2020-04-04] MEDS: COLLAGENASE CLOSTRIDIUM HIST. OINT 30 GM TOP SCH (09:46)
[2020-04-04] MEDS ORDERED: HEPARIN SODIUM,PORCINE/D5W 25,000 UNIT/250 ML RTUINJ IV PRN (18:18)
[2020-04-04] MEDS ORDERED: HEPARIN SODIUM,PORCINE/D5W 25,000 UNIT/250 ML RTUINJ IV ONE (18:21)
[2020-04-04] MEDS: HYDROMORPHONE HCL INJ/PF 2 MG/ML AMPULE IV PRN (18:30)
[2020-04-04 19:15] LABS: HEMATOCRIT 27.2 % (37.9-51.0); MEAN CORPUSCULAR HEMOGLOBIN 29.5 pg (27.0-33.4); MEAN CORPUSCULAR VOLUME 89 fl (80-97); RED BLOOD COUNT 3.04 10^6/uL (4.35-5.55); RED CELL DISTRIBUTION WIDTH 20.7 % (11.5-14.0); WHITE BLOOD COUNT 15.6 10^3/uL (4.0-10.5)
[2020-04-04 19:51] LABS: ABSOLUTE LYMPHOCYTES# (MANUAL) 2.2 10^3/uL (0.5-4.7); ABSOLUTE MONOCYTES # (MANUAL) 0.9 10^3/uL (0.1-1.4); BASOPHILS % (MANUAL) 0 % (0-2); EOSINOPHILS % (MANUAL) 5 % (0-6); LYMPHOCYTES % (MANUAL) 14 % (13-45); MONOCYTES % (MANUAL) 6 % (3-13); PLATELET CLUMPS PRESENT; PLATELET COMMENT ADEQUATE; SEGMENTED NEUTROPHILS % (MAN) 75 % (42-78); TOTAL CELLS COUNTED 100
[2020-04-04 19:53] LABS: ANISOCYTOSIS 2+
[2020-04-04 19:54] LABS: POLYCHROMASIA SLIGHT; TOXIC VACUOLATION PRESENT
[2020-04-04 19:55] LABS: OVALOCYTES SLIGHT
[2020-04-04 19:59] LABS: PLATELET COUNT 152 10^3/uL (150-450)
[2020-04-04 20:38] LABS: INTERNATIONAL RATION (INR) 1.13; PROTHROMBIN TIME 14.7 SEC (11.4-15.4)
[2020-04-04 20:39] LABS: PARTIAL THROMBOPLASTIN TIME 34.5 SEC (23.5-35.8)
[2020-04-04] MEDS ORDERED: HEPARIN SOD (PORCINE) 1,000 UNIT/ML 10 ML VIAL IV PRN (21:18)
[2020-04-05] MEDS: LEVALBUTEROL HCL NEB 1.25 MG/3 ML AMPUL NEB SCH ×4 (02:39→20:52)
--- NOTE | 2020-04-05 10:11 | PDOC CRITICAL CARE PROG REPORT ---
General Date:: 04/04/20 ICU Day:: 52 Hospital Day:: 56 Resuscitation Status: Full Code Events in the past 12 to 24 Hours:: This 69-year-old male was admitted on 02/08/2020 with dyspnea and leg weakness. He reported falling out of his truck a few days prior to presentation. He transferred to the ICU on 02/12/2020 after requiring endotr acheal intubation due to acute respiratory failure secondary to COVID-19 pneumonia. He is required prolonged mechanical ventilatory support and underwent tracheostomy on 03/11/2020. 03/30: Tolerates trach collar trial during the day. Goes on mechanical ventilatory support during sleep and at nighttime. Patient is awake, alert and interactive. He certainly demonstrates flat affect. Follows commands. Generalized weakness. Edema. Continues to struggle with worsening sacral decubitus ulcer. Anticipated debridement later this week. Digoxin level this morning 2.27. Underwent hemodialysis this morning. 03/31: Anticipating debridement of sacral decubitus ulcer today. Tolerating trach collar during the day. Using ventilator support at night. Ryan catheter was placed in the interim with bladder scan showing over 100 mL of urine; however, the patient has produced approximately 10 mL/h. Linezolid has been changed to vancomycin in the interim, in hopes of starting SSRI. 04/01: Underwent debridement of sacral decubitus ulcer yesterday. Nurse reported excessive oozing into the bandages. DDAVP was administered due to concerns of platelet dysfunction given his renal failure. I suspect the "improvement "in creatinine seen on yesterday's lab was a lab error, as today's lab results are more consistent with expected findings. Hemoglobin 8.4> 6.8. On hemodialysis this morning. Also, scheduled to receive 2 units PRBC over dialysis. Platelets 108. Not on heparin. Not on famotidine. Has been on Nepro for nutritional support along with Prosource. Tolerating trach collar trial during the day. Using vent support at night. He is remaining on ventilator support during his dialysis session. Demonstrating Darío-Manuel respirations. Psychologically, the patient appears to be more interactive and perhaps in better spirits. Did start on Celexa yesterday. 04/02: Temporary hemodialysis catheter and central venous catheter were removed yesterday. Currently, on a "line holiday". Plans in place for PermCath placement tomorrow morning. May need additional access, probably in the form of a PICC line. Mood seems to be improving. More interactive. Normalized weaknes s. On Nepro @ 40 with Prosource. Chest x-ray continues to show steady improvement, albeit with persistent bibasilar space disease. Continues to tolerate trach collar during the day. On vent support at night. COVID-19 testing (03/30) finally returned to negative result in the interim. 04/03: New temporary hemodialysis catheter is been placed in the right femoral vein by Dr. Talley. Case discussed with Dr. Talley with plans for PermCath placement (and possible percutaneous gastrostomy and diverting colostomy) next week. On Nepro. Continues to tolerate trach collar during the day. On vent support at night. 04/04: Underwent dialysis yesterday via new temporary hemodialysis catheter, whi ch was placed after a "line holiday". Blood cultures obtained show no growth to date. Central venous catheter tip culture is thus far negative. The previous HD catheter is isolating MSSA in broth only, likely a contaminant from lab processing, as the sensitivity profile suggests that the patient's current antibiotic therapy is more than sufficient to cover this organism (in addition to the other negative culture data). Clinically, no significant change in the interim. Anticipating PermCath placement, percutaneous gastrostomy placement and diverting colostomy next week. Digoxin level 1.56, still elevated. Failed bedside, nurse driven, speech/swallow evaluation yesterday. Heparin infusion was supposed to be started in lieu of Eliquis, in light of anticipated surgical interventions in the near future. However, despite discussion on multidisciplinary rounds, this did not get started. Review of systems relevant to events:: Pulmonary, CV, renal, ID. Reason for ICU Addmission:: On trach collar at 40%. Infected sacral wound. - Medications: Medications reviewed and adjusted accordingly: Yes Physical Exam Vital Signs: Temp Pulse Resp BP Pulse Ox 100.0 F 88 29 H 150/51 H 98 04/04/20 08:00 04/04/20 08:00 04/04/20 08:00 04/04/20 08:00 04/04/20 08:00 Pulse Oximeter Nocturnal Start: 02/08/20 13:55 Freq: RTQ4 Status: Complete Protocol: Document 02/09/20 04:00 LRO (Rec: 02/09/20 05:38 LRO [id number]) Nocturnal Pulse Oximetry Equipment Usage Equipment in Use Oxygen Delivery Method (includes room Room Air air) O2 Sat by Pulse Oximetry (92-100) 95 Continuous SpO2 Machine # 2 Pulse Oximeter Nocturnal Start: 02/10/20 11:39 Freq: RTQ4 Status: Complete Protocol: Document 02/11/20 04:06 PMU (Rec: 02/11/20 05:06 PMU [email or web address]) Nocturnal Pulse Oximetry Equipment Usage Equipment in Use Oxygen Delivery Method (includes room Room Air air) O2 Sat by Pulse Oximetry (92-100) 93 Continuous SpO2 Machine # N2 Intake & Output 04/03/20 04/04/20 04/05/20 06:59 06:59 06:59 Intake Total 270 150 Output Total 371 2860 0 Balance -101 -2710 0 Weight 107.5 kg 104.9 kg Weight/Height Weight 104.9 kg Height 1.75 m General appearance: PRESENT: no acute distress, obese, well-developed, well- nourished Head exam: PRESENT: atraumatic, normocephalic Eye exam: PRESENT: conjunctiva pink, EOMI, PERRLA. ABSENT: scleral icterus Mouth exam: PRESENT: moist, tongue midline Neck exam: PRESENT: tracheostomy. ABSENT: carotid bruit, JVD, lymphadenopathy, thyromegaly Respiratory exam: PRESENT: clear to auscultation kevyn. ABSENT: rales, rhonchi, wheezes Cardiovascular exam: PRESENT: irregular rhythm. ABSENT: diastolic murmur, rubs, systolic murmur Pulses: PRESENT: normal dorsalis pedis pul GI/Abdominal exam: PRESENT: normal bowel sounds, soft. ABSENT: distended, guarding, mass, organolmegaly, rebound, tenderness Extremities exam: PRESENT: full ROM, pedal edema. ABSENT: calf tenderness, clubbing Musculoskeletal exam: PRESENT: normal inspection, other - Generalized weakness. ABSENT: deformity Neurological exam: PRESENT: alert, awake, oriented to person, oriented to place, CN II-XII grossly intact, motor sensory deficit - Generalized motor weakness. Right mri assistant strength 1+. Left mri assistant strength 0. Bilateral lower extremity motor strength 0/5.. ABSENT: reflexes normal - DTRs are 1+ at bilateral biceps and patellar tendons. Psychiatric exam: PRESENT: depressed. ABSENT: agitated, anxious Skin exam: PRESENT: other - Weeping. Stage IV sacral decubitus. Unstageable lower extremity skin breakdown. Tubes/Lines: PRESENT: Dialysis catheter - Right femoral, Nasogastic Tube Laboratory/Radiographs Laboratory Results: 04/04/20 05:05 04/04/20 05:05 04/03/20 04/04/20 04/04/20 11:17 05:05 05:05 WBC 13.1 H RBC 2.89 L Hgb 8.6 L Hct 25.3 L MCV 88 MCH 29.8 MCHC 34.0 RDW 19.9 H Plt Count 117 L Seg Neutrophils % 80.7 H Sodium 135.4 L 135.3 L Potassium 4.1 3.6 Chloride 102 101 Carbon Dioxide 23 23 Anion Gap 10 11 BUN 76 H 46 H D Creatinine 1.95 H 1.38 H Est GFR ( Amer) 41 L > 60 Glucose 85 118 H Calcium 8.4 8.2 L Phosphorus 4.9 H 3.0 Magnesium 1.8 1.8 Prealbumin 17.1 L 04/01/20 13:15 Catheter Tip - Central Line Catheter Tip Culture - Final Staphylococcus Aureus 02/08/20 02/08/20 02/21/20 09:49 13:11 04:50 Troponin I 0.160 0.155 NT-Pro-B Natriuret Pep 5540 H 64518 H 02/26/20 03/09/20 03/20/20 05:35 04:00 06:10 Troponin I NT-Pro-B Natriuret Pep 71168 H 54131 H 07834 H Impressions: Hip/Pelvis X-Ray 02/08/20 00:00 IMPRESSION: No acute fracture. Severe degenerative changes of the left hip. Knee X-Ray 02/08/20 00:00 IMPRESSION: NEGATIVE STUDY OF THE RIGHT KNEE. NO RADIOGRAPHIC EVIDENCE OF ACUTE INJURY. Renal Ultrasound 02/21/20 00:00 IMPRESSION: Increased echogenicity of the renal parenchyma suggestive of underlying chronic medical renal disease. There is no hydronephrosis. There is a Ryan catheter within the urinary bladder. Head CT 03/08/20 08:56 IMPRESSION: MILD CHRONIC CHANGES OF ATROPHY AND MICROVASCULAR ISCHEMIA. NO ACUTE PROCESS. EVIDENCE OF ACUTE STROKE: NO. Chest CT 03/08/20 10:12 IMPRESSION: Extensive bilateral infiltrates. No pneumothorax. KUB X-Ray 04/01/20 00:00 IMPRESSION: NG tube as described. Chest X-Ray 04/02/20 05:00 IMPRESSION: NO SIGNIFICANT INTERVAL CHANGE IN APPEARANCE OF THE CHEST. All labs, radiographs, diagnostic studies and EKGs were personally reviewed: Yes In addition, reports of radiographic and diagnostic studies were read: Yes Assessment and Plan - Diagnosis (1) Acute respiratory failure due to COVID-19 Is this a current diagnosis for this admission?: Yes Plan: * Trach collar during the day. * Mechanical ventilatory support at night. * Repeat SARS-2-CoV test negative (03/30). * Discontinue special airborne precautions, as the patient has been fever free x24 hours. Last positive COVID-19 test was 03/05/2020. Clinically, improving. * Failed speech/swallow evaluation yesterday. We will plan to proceed with percutaneous gastrostomy placement (2) Gram negative sepsis Is this a current diagnosis for this admission?: Yes Plan: * Secondary to wound infection/sacral decubitus, which is still isolating Pseudo monas aeruginosa, Enterobacter cloacae and MRSA. * Blood cultures (03/25) were noted to isolate Enterobacter species. * Continue meropenem. * Currently on a "line holiday". Blood cultures were obtained on 04/01/2020. * Anticipating placement of PermCath next week. (3) Decubitus ulcer of sacral region, unstageable Is this a current diagnosis for this admission?: Yes Plan: * Present on admission. * Additionally, he has unstageable pressure ulcers on his lower extremities. * General surgery help appreciated. * Wound care service help appreciated. * Continue vancomycin and meropenem. * Anticipate diverting colostomy next week. (4) Polyneuropathy associated with critical illness Is this a current diagnosis for this admission?: Yes (5) CKD (chronic kidney disease) stage 5, GFR less than 15 ml/min Is this a current diagnosis for this admission?: Yes (6) Nonischemic cardiomyopathy Is this a current diagnosis for this admission?: Yes (7) Atrial fibrillation Qualifiers: Atrial fibrillation type: persistent (not longstanding) Qualified Code(s): I48.19 - Other persistent atrial fibrillation; I48.1 - Persistent atrial fibrillation Is this a current diagnosis for this admission?: Yes Plan: * Hold digoxin. Digoxin level 1.56 today. * Eliquis on hold for debridement and may need to stay on hold until tunneled HD catheter has been placed. * Now, with impending debridement of his sacral decubitus. We will need withhold heparin infusion at this time. We will plan on restarting anticoagulation, when okay with the surgeon. Also, we will need to coordinate discontinuation of the infusion in preparation for anticipated surgical procedures next week (tunneled HD catheter insertion, percutaneous gastrostomy and diverting colostomy). (8) Darío-Manuel respiration Is this a current diagnosis for this admission?: Yes (9) Vitamin D deficiency Is this a current diagnosis for this admission?: Yes (10) Hyponatremia Is this a current diagnosis for this admission?: Yes (11) Occult blood in stools Is this a current diagnosis for this admission?: Yes (12) Normocytic anemia Is this a current diagnosis for this admission?: Yes (13) Abnormal LFTs Is this a current diagnosis for this admission?: Yes (14) Pneumonia due to gram-negative bacteria Is this a current diagnosis for this admission?: Yes (15) MRSA pneumonia Qualifiers: Laterality: bilateral Lung location: unspecified part of lung Qualified Code(s): J15.212 - Pneumonia due to Methicillin resistant Staphylococcus aureus Is this a current diagnosis for this admission?: Yes Critical Time Critical Time (minutes): 60 Level of Care: ICU -: 1. The care of a critical patient is a dynamic process. This note is a automotive leasing sales representative synopsis but static in nature. The timeframe for treatments given in order is not necessarily the actual time these treatments may have been done. 2. This patient requires critical care secondary to ongoing requirements for therapy not offered or safe outside the critical care environment. Transfer to a lower level of care will result in altered life or limb morbidity and mortality. 3. Multidisciplinary rounds completed. 4. ABCDE bundle addressed.
[2020-04-05] MEDS: CITALOPRAM HYDROBROMIDE 20 MG TABLET NG SCH (10:56)
[2020-04-05] MEDS: LABETALOL HCL 200 MG TABLET NG SCH ×2 (10:56→21:30)
[2020-04-05] MEDS: PANTOPRAZOLE SODIUM 40 MG VIAL IV SCH (10:56)
[2020-04-05] MEDS: CHOLECALCIFEROL (D3) 1,000 UNIT (25 MCG) TABLET NG SCH ×3 (10:56→19:27)
[2020-04-05] MEDS: HYDRALAZINE HCL 25 MG TABLET NG SCH ×2 (10:56→21:29)
[2020-04-05] MEDS: CALCITRIOL 1 MCG/ML ORAL SOLN 15 ML NG SCH (10:57)
[2020-04-05] MEDS: COLLAGENASE CLOSTRIDIUM HIST. OINT 30 GM TOP SCH (10:57)
[2020-04-05] MEDS: AMINO AC/PROTEIN HYDR/WHEY PRO 11 GM/45 ML PKT NG SCH ×4 (10:57→21:30)
[2020-04-05] MEDS: POTASSIUM CHLORIDE 20 MEQ PACKET NG SCH (10:57)
[2020-04-05] MEDS: MEROPENEM 1 GM in NORMAL SALINE 50 ML IV SCH ×2 (10:58→19:19)
[2020-04-05] MEDS ORDERED: VANCOMYCIN HCL 0 MG in DEXTROSE 5%-WATER 250 ML IV NR ×4 (12:45)
[2020-04-05] MEDS ORDERED: FLUCONAZOLE 400 MG/NS RTU 400 MG/200 ML RTUPB IV ONE (13:00)
[2020-04-05] MEDS ORDERED: MIDAZOLAM 2 MG/2 ML INJ ONE (14:07)
[2020-04-05] MEDS: HYDROMORPHONE HCL INJ/PF 2 MG/ML AMPULE IV PRN (14:10)
[2020-04-05] MEDS ORDERED: LIDOCAINE 1%/EPINEPHRINE INJ 20 ML VIAL INJ ONE (15:00)
--- NOTE | 2020-04-05 15:55 | PDOC CRITICAL CARE PROG REPORT ---
General Date:: 04/05/20 ICU Day:: 53 Hospital Day:: 57 Resuscitation Status: Full Code Events in the past 12 to 24 Hours:: This 69-year-old male was admitted on 02/08/2020 with dyspnea and leg weakness. He reported falling out of his truck a few days prior to presentation. He transferred to the ICU on 02/12/2020 after requiring endotr acheal intubation due to acute respiratory failure secondary to COVID-19 pneumonia. He is required prolonged mechanical ventilatory support and underwent tracheostomy on 03/11/2020. 03/30: Tolerates trach collar trial during the day. Goes on mechanical ventilatory support during sleep and at nighttime. Patient is awake, alert and interactive. He certainly demonstrates flat affect. Follows commands. Generalized weakness. Edema. Continues to struggle with worsening sacral decubitus ulcer. Anticipated debridement later this week. Digoxin level this morning 2.27. Underwent hemodialysis this morning. 03/31: Anticipating debridement of sacral decubitus ulcer today. Tolerating trach collar during the day. Using ventilator support at night. Ryan catheter was placed in the interim with bladder scan showing over 100 mL of urine; however, the patient has produced approximately 10 mL/h. Linezolid has been changed to vancomycin in the interim, in hopes of starting SSRI. 04/01: Underwent debridement of sacral decubitus ulcer yesterday. Nurse reported excessive oozing into the bandages. DDAVP was administered due to concerns of platelet dysfunction given his renal failure. I suspect the "improvement "in creatinine seen on yesterday's lab was a lab error, as today's lab results are more consistent with expected findings. Hemoglobin 8.4> 6.8. On hemodialysis this morning. Also, scheduled to receive 2 units PRBC over dialysis. Platelets 108. Not on heparin. Not on famotidine. Has been on Nepro for nutritional support along with Prosource. Tolerating trach collar trial during the day. Using vent support at night. He is remaining on ventilator support during his dialysis session. Demonstrating Darío-Manuel respirations. Psychologically, the patient appears to be more interactive and perhaps in better spirits. Did start on Celexa yesterday. 04/02: Temporary hemodialysis catheter and central venous catheter were removed yesterday. Currently, on a "line holiday". Plans in place for PermCath placement tomorrow morning. May need additional access, probably in the form of a PICC line. Mood seems to be improving. More interactive. Normalized weaknes s. On Nepro @ 40 with Prosource. Chest x-ray continues to show steady improvement, albeit with persistent bibasilar space disease. Continues to tolerate trach collar during the day. On vent support at night. COVID-19 testing (03/30) finally returned to negative result in the interim. 04/03: New temporary hemodialysis catheter is been placed in the right femoral vein by Dr. Talley. Case discussed with Dr. Talley with plans for PermCath placement (and possible percutaneous gastrostomy and diverting colostomy) next week. On Nepro. Continues to tolerate trach collar during the day. On vent support at night. 04/04: Underwent dialysis yesterday via new temporary hemodialysis catheter, whi ch was placed after a "line holiday". Blood cultures obtained show no growth to date. Central venous catheter tip culture is thus far negative. The previous HD catheter is isolating MSSA in broth only, likely a contaminant from lab processing, as the sensitivity profile suggests that the patient's current antibiotic therapy is more than sufficient to cover this organism (in addition to the other negative culture data). Clinically, no significant change in the interim. Anticipating PermCath placement, percutaneous gastrostomy placement and diverting colostomy next week. Digoxin level 1.56, still elevated. Failed bedside, nurse driven, speech/swallow evaluation yesterday. Heparin infusion was supposed to be started in lieu of Eliquis, in light of anticipated surgical interventions in the near future. However, despite discussion on multidisciplinary rounds, this did not get started. 04/05: On trach collar trial this morning. Eliquis on hold in anticipation of sacral debridement later today. WBC count up to 15.6, but no bands. Blood cultures negative x72 hours. CVC catheter tip culture finalized with yeast (not Jerri albicans). HD catheter tip culture finalized MSSA. Blood cultures drawn at the same time have shown no growth x72 hours. On meropenem/vancomycin. Review of systems relevant to events:: Pulmonary, CV, renal, ID. Reason for ICU Addmission:: On trach collar at 40%. Infected sacral wound. - Medications: Medications reviewed and adjusted accordingly: Yes Physical Exam Vital Signs: Temp Pulse Resp BP Pulse Ox 99.1 F 86 23 H 170/50 H 100 04/05/20 08:00 04/05/20 10:00 04/05/20 10:00 04/05/20 10:00 04/05/20 10:00 Pulse Oximeter Nocturnal Start: 02/08/20 13:55 Freq: RTQ4 Status: Complete Protocol: Document 02/09/20 04:00 LRO (Rec: 02/09/20 05:38 LRO [email or web address]) Nocturnal Pulse Oximetry Equipment Usage Equipment in Use Oxygen Delivery Method (includes room Room Air air) O2 Sat by Pulse Oximetry (92-100) 95 Continuous SpO2 Machine # 2 Pulse Oximeter Nocturnal Start: 02/10/20 11:39 Freq: RTQ4 Status: Complete Protocol: Document 02/11/20 04:06 PMU (Rec: 02/11/20 05:06 PMU [email or web address]) Nocturnal Pulse Oximetry Equipment Usage Equipment in Use Oxygen Delivery Method (includes room Room Air air) O2 Sat by Pulse Oximetry (92-100) 93 Continuous SpO2 Machine # N2 Intake & Output 04/04/20 04/05/20 04/06/20 06:59 06:59 06:59 Intake Total 200 1493 Output Total 2860 90 0 Balance -2660 1403 0 Weight 104.9 kg 106.7 kg Weight/Height Weight 106.7 kg Height 1.75 m General appearance: PRESENT: no acute distress, well-developed, well-nourished Head exam: PRESENT: atraumatic, normocephalic Eye exam: PRESENT: conjunctiva pink, EOMI, PERRLA. ABSENT: scleral icterus Neck exam: PRESENT: tracheostomy. ABSENT: carotid bruit, JVD, lymphadenopathy, thyromegaly Respiratory exam: PRESENT: clear to auscultation kevyn. ABSENT: rales, rhonchi, wheezes Cardiovascular exam: PRESENT: irregular rhythm. ABSENT: diastolic murmur, rubs, systolic murmur Pulses: PRESENT: normal dorsalis pedis pul GI/Abdominal exam: PRESENT: normal bowel sounds, soft. ABSENT: distended, guarding, mass, organolmegaly, rebound, tenderness Extremities exam: PRESENT: full ROM, pedal edema, +2 edema. ABSENT: calf tenderness, clubbing Neurological exam: PRESENT: alert, awake, oriented to person, oriented to place, CN II-XII grossly intact, motor sensory deficit Psychiatric exam: PRESENT: appropriate affect, normal mood. ABSENT: homicidal ideation, suicidal ideation Skin exam: PRESENT: intact, warm, other - Stage IV sacral decubitus. Unstageable bilateral lower extremity pressure sores.. ABSENT: cyanosis, rash Tubes/Lines: PRESENT: Dialysis catheter - Right femoral Laboratory/Radiographs Laboratory Results: 04/04/20 19:00 04/04/20 05:05 04/04/20 19:00 WBC 15.6 H RBC 3.04 L Hgb 9.0 L Hct 27.2 L MCV 89 MCH 29.5 MCHC 33.0 RDW 20.7 H Plt Count 152 Seg Neutrophils % Not Reportable 04/01/20 19:23 Catheter Tip - Central Line Catheter Tip Culture - Final Yeast, Not Jerri Albicans 04/01/20 13:15 Catheter Tip - Central Line Catheter Tip Culture - Final Staphylococcus Aureus 02/08/20 02/08/20 02/21/20 09:49 13:11 04:50 Troponin I 0.160 0.155 NT-Pro-B Natriuret Pep 5540 H 83479 H 02/26/20 03/09/20 03/20/20 05:35 04:00 06:10 Troponin I NT-Pro-B Natriuret Pep 06451 H 99497 H 48383 H Impressions: Hip/Pelvis X-Ray 02/08/20 00:00 IMPRESSION: No acute fracture. Severe degenerative changes of the left hip. Knee X-Ray 02/08/20 00:00 IMPRESSION: NEGATIVE STUDY OF THE RIGHT KNEE. NO RADIOGRAPHIC EVIDENCE OF ACUTE INJURY. Renal Ultrasound 02/21/20 00:00 IMPRESSION: Increased echogenicity of the renal parenchyma suggestive of underlying chronic medical renal disease. There is no hydronephrosis. There is a Ryan catheter within the urinary bladder. Head CT 03/08/20 08:56 IMPRESSION: MILD CHRONIC CHANGES OF ATROPHY AND MICROVASCULAR ISCHEMIA. NO ACUTE PROCESS. EVIDENCE OF ACUTE STROKE: NO. Chest CT 03/08/20 10:12 IMPRESSION: Extensive bilateral infiltrates. No pneumothorax. KUB X-Ray 04/01/20 00:00 IMPRESSION: NG tube as described. Chest X-Ray 04/02/20 05:00 IMPRESSION: NO SIGNIFICANT INTERVAL CHANGE IN APPEARANCE OF THE CHEST. All labs, radiographs, diagnostic studies and EKGs were personally reviewed: Yes In addition, reports of radiographic and diagnostic studies were read: Yes Assessment and Plan - Diagnosis (1) Acute respiratory failure due to COVID-19 Is this a current diagnosis for this admission?: Yes Plan: * Trach collar during the day. * Mechanical ventilatory support at night. * Repeat SARS-2-CoV test negative (03/30). * Discontinue special airborne precautions, as the patient has been fever free x24 hours. Last positive COVID-19 test was 03/05/2020. Clinically, improving. * Failed speech/swallow evaluation yesterday. We will plan to proceed with percutaneous gastrostomy placement. He is also anticipating PermCath placement and diverting colostomy later this week. (2) Gram negative sepsis Is this a current diagnosis for this admission?: Yes Plan: * Secondary to wound infection/sacral decubitus, which is still isolating Pseudomonas aeruginosa, Enterobacter cloacae and MRSA. * Blood cultures (03/25) were noted to isolate Enterobacter species. * Continue meropenem (stop date 04/06). * Currently on a "line holiday". Blood cultures were obtained on 04/01/2020. * Anticipating placement of PermCath next week. (3) Decubitus ulcer of sacral region, unstageable Is this a current diagnosis for this admission?: Yes Plan: * Present on admission. * Additionally, he has unstageable pressure ulcers on his lower extremities. * General surgery help appreciated. * Wound care service help appreciated. * Continue vancomycin (stop date 04/08) and meropenem (stop date 04/06). It is come to my attention today that despite discussing continuing vancomycin daily on multidisciplinary rounds, vancomycin has not been is administered since 04/02. Restart vancomycin today. * Anticipate diverting colostomy next week. * With new rise in white count (albeit without increase in bands), will add fluconazole for empiric coverage of Jerri non-albicans. (4) Polyneuropathy associated with critical illness Is this a current diagnosis for this admission?: Yes Plan: * PT/OT consult. (5) CKD (chronic kidney disease) stage 5, GFR less than 15 ml/min Is this a current diagnosis for this admission?: Yes Plan: * On dialysis M/W/F. * Nephrology assistance appreciated. * On "line holiday" x24 hours with new temporary hemodialysis catheter has been placed (04/03) for dialysis today (and possibly Monday). Original temporary HD catheter tip culture is isolating gram-positive cocci in clusters from the broth subculture only (probably a contaminant). * PermCath placement next week. (6) Nonischemic cardiomyopathy Is this a current diagnosis for this admission?: Yes (7) Atrial fibrillation Qualifiers: Atrial fibrillation type: persistent (not longstanding) Qualified Code(s): I48.19 - Other persistent atrial fibrillation; I48.1 - Persistent atrial fibrillation Is this a current diagnosis for this admission?: Yes (8) Darío-Manuel respiration Is this a current diagnosis for this admission?: Yes (9) Vitamin D deficiency Is this a current diagnosis for this admission?: Yes (10) Hyponatremia Is this a current diagnosis for this admission?: Yes (11) Occult blood in stools Is this a current diagnosis for this admission?: Yes (12) Normocytic anemia Is this a current diagnosis for this admission?: Yes (13) Abnormal LFTs Is this a current diagnosis for this admission?: Yes (14) Pneumonia due to gram-negative bacteria Is this a current diagnosis for this admission?: Yes (15) MRSA pneumonia Qualifiers: Laterality: bilateral Lung location: unspecified part of lung Qualified C ode(s): J15.212 - Pneumonia due to Methicillin resistant Staphylococcus aureus Is this a current diagnosis for this admission?: Yes Critical Time Critical Time (minutes): 60 Level of Care: ICU -: 1. The care of a critical patient is a dynamic process. This note is a abrasives sales representative synopsis but static in nature. The timeframe for treatments given in order is not necessarily the actual time these treatments may have been done. 2. This patient requires critical care secondary to ongoing requirements for therapy not offered or safe outside the critical care environment. Transfer to a lower level of care will result in altered life or limb morbidity and mor tality. 3. Multidisciplinary rounds completed. 4. ABCDE bundle addressed.
[2020-04-05] MEDS ORDERED: DESMOPRESSIN ACETATE IV ONE (16:00)
[2020-04-05] MEDS ORDERED: NORMAL SALINE IV ONE (16:00)
[2020-04-05] MEDS ORDERED: PHENYLEPHRINE HCL 0.5% NASAL SPRAY 15 ML NASL ONE (18:00)
[2020-04-05] MEDS ORDERED: VANCOMYCIN HCL 2,000 MG in DEXTROSE 5%-WATER 500 ML IV ONE (18:00)
[2020-04-05] MEDS ORDERED: PHENYLEPHRINE HCL 0.5% NASAL SPRAY 15 ML ONE (18:48)
[2020-04-05] MEDS: NYSTATIN TOPICAL POWDER 15 GM TP SCH ×2 (19:18→21:30)
[2020-04-05] MEDS ORDERED: HYDROMORPHONE HCL INJ/PF 2 MG/ML AMPULE IV ONE (19:30)
[2020-04-05] MEDS ORDERED: MIDAZOLAM 2 MG/2 ML INJ IV ONE (19:30)
[2020-04-05] MEDS ORDERED: ALBUMIN HUMAN 500 ML IV ONE ×2 (20:05→21:21)
--- NOTE | 2020-04-05 20:38 | Operative Report ---
Nonrecallable Operative Report DATE OF SURGERY: 04/05/20 PREOPERATIVE DIAGNOSIS: worsening sacral decubitus ulcer POSTOPERATIVE DIAGNOSIS: same OPERATION: sharp, excisional dbridement of necrotic skin, fat, muscle, and fascia of a sacral decubitus ulcer (20 x 17 x1 cm) SURGEON: SWATI GUILLEN ANESTHESIA: Moderate Sedation TISSUE REMOVED OR ALTERED: necrotic skin, fat, muscle, and fascia COMPLICATIONS: worsening sacral decubitus, requiring debridement ESTIMATED BLOOD LOSS: 20cc PROCEDURE: Drains/implants: 4x4 gauze Procedure: After informed consent was obtained, jeffrey pt was laid in the left lateral decubitus position in the ICU. Necrotic skin, fat, muscle, and fascia was debrided away sharply with a 10 blade scalpel. The area of debridement measured 20 x 17 x 1 cm. A dressing was then fashioned with 4x4 gauze. The procedure was concluded. All sponge, instrument, and needle counts were correct. Cond: critical in ICU
[2020-04-06] MEDS: LEVALBUTEROL HCL NEB 1.25 MG/3 ML AMPUL NEB SCH ×4 (02:24→20:48)
[2020-04-06] MEDS: MEROPENEM 1 GM in NORMAL SALINE 50 ML IV SCH ×3 (02:55→17:39)
[2020-04-06] MEDS ORDERED: EPOETIN ALFA-EPBX 20,000 UNIT in SYRINGE, DISPOSABLE, 1 EACH IV PRN (05:00)
[2020-04-06] MEDS ORDERED: NORMAL SALINE 1000 ML 1,000 ML IV PRN ×2 (05:00→11:04)
[2020-04-06] MEDS ORDERED: HEPARIN SOD (PORCINE) 1,000 UNIT/ML 10 ML VIAL IV PRN ×2 (05:00→11:04)
[2020-04-06 05:01] LABS: AMORPHOUS SEDIMENT,URINE TRACE /HPF; APPEARANCE,URINE CLOUDY; BILIRUBIN,URINE NEGATIVE (NEGATIVE); COLOR,URINE AMBER; GLUCOSE, URINE 50 mg/dL (NEGATIVE); KETONES,URINE TRACE mg/dL (NEGATIVE); LEUKOCYTE ESTERASE,URINE MODERATE (NEGATIVE); NITRITE,URINE NEGATIVE (NEGATIVE); PROTEIN,URINE >=500 mg/dL (NEGATIVE); URINE SPECIFIC GRAVITY 1.024
[2020-04-06 07:41] LABS: INTERNATIONAL RATION (INR) 1.18; PROTHROMBIN TIME 15.2 SEC (11.4-15.4)
[2020-04-06 07:42] LABS: ABSOLUTE EOSINOPHILS # (AUTO) 0.4 10^3/uL (0.0-0.6); ABSOLUTE LYMPHOCYTES (AUTO) 1.5 10^3/uL (0.5-4.7); ABSOLUTE MONOCYTES (AUTO) 0.7 10^3/uL (0.1-1.4); BASOPHILS % (AUTO) 0.4 % (0-2); EOSINOPHILS % (AUTO) 4.2 % (0-6); HEMATOCRIT 19.2 % (37.9-51.0); LYMPHOCYTES % (AUTO) 14.1 % (13-45); MEAN CORPUSCULAR HEMOGLOBIN 29.6 pg (27.0-33.4); MEAN CORPUSCULAR HGB CONC 32.5 g/dL (32.0-36.0); MEAN CORPUSCULAR VOLUME 91 fl (80-97); MONOCYTES % (AUTO) 6.3 % (3-13); PARTIAL THROMBOPLASTIN TIME 38.7 SEC (23.5-35.8); PLATELET COUNT 168 10^3/uL (150-450); RED BLOOD COUNT 2.11 10^6/uL (4.35-5.55); TOTAL CELLS COUNTED % (AUTO) 100 %; WHITE BLOOD COUNT 10.6 10^3/uL (4.0-10.5)
[2020-04-06 07:56] LABS: ALBUMIN 2.3 g/dL (3.5-5.0); ALKALINE PHOSPHATASE 97 U/L (38-126); ASPARTATE AMINO TRANSFERASE 36 U/L (17-59); CARBON DIOXIDE 24 mmol/L (22-30); CHLORIDE 101 mmol/L (98-107); TOTAL PROTEIN 4.7 g/dL (6.3-8.2)
[2020-04-06 08:02] LABS: HEMOGLOBIN 6.2 g/dL (13.5-17.0)
[2020-04-06] MEDS ORDERED: NORMAL SALINE 250 ML IV PRN ×2 (08:09)
[2020-04-06 08:11] LABS: ANION GAP 10 (5-19); BILIRUBIN,DIRECT 0.7 mg/dL (0.0-0.4); BILIRUBIN,TOTAL 0.9 mg/dL (0.2-1.3); BLOOD UREA NITROGEN 77 mg/dL (7-20); CALCIUM 8.3 mg/dL (8.4-10.2); GLUCOSE 95 mg/dL (75-110); PHOSPHORUS 5.8 mg/dL (2.5-4.5); POTASSIUM 4.7 mmol/L (3.6-5.0)
--- NOTE | 2020-04-06 08:45 | PDOC CRITICAL CARE PROG REPORT ---
General Date:: 04/06/20 ICU Day:: 54 Hospital Day:: 58 Resuscitation Status: Full Code Events in the past 12 to 24 Hours:: Essentially no change. Review of systems relevant to events:: Pulmonary, neurological. Reason for ICU Addmission:: On trach collar at 40%. Infected sacral wound. - Medications: Medications reviewed and adjusted accordingly: Yes Vasopressors:: None Sedation:: None Physical Exam Vital Signs: Temp Pulse Resp BP Pulse Ox 98.8 F 91 38 H 113/43 L 100 04/06/20 06:11 04/06/20 07:45 04/06/20 06:11 04/06/20 06:11 04/06/20 06:11 Pulse Oximeter Nocturnal Start: 02/08/20 13:55 Freq: RTQ4 Status: Complete Protocol: Document 02/09/20 04:00 LRO (Rec: 02/09/20 05:38 LRO [id number]) Nocturnal Pulse Oximetry Equipment Usage Equipment in Use Oxygen Delivery Method (includes room Room Air air) O2 Sat by Pulse Oximetry (92-100) 95 Continuous SpO2 Machine # 2 Pulse Oximeter Nocturnal Start: 02/10/20 11:39 Freq: RTQ4 Status: Complete Protocol: Document 02/11/20 04:06 PMU (Rec: 02/11/20 05:06 PMU [email or web address]) Nocturnal Pulse Oximetry Equipment Usage Equipment in Use Oxygen Delivery Method (includes room Room Air air) O2 Sat by Pulse Oximetry (92-100) 93 Continuous SpO2 Machine # N2 Intake & Output 04/05/20 04/06/20 04/07/20 06:59 06:59 06:59 Intake Total 1493 2168 Output Total 90 310 Balance 1403 1858 Weight 106.7 kg 105.6 kg Weight/Height Weight 105.6 kg Height 5 ft 9 in General appearance: PRESENT: no acute distress Head exam: PRESENT: atraumatic, normocephalic Eye exam: PRESENT: conjunctiva pink, EOMI, PERRLA. ABSENT: scleral icterus Ear exam: PRESENT: normal external ear exam Mouth exam: PRESENT: moist, tongue midline Respiratory exam: PRESENT: clear to auscultation kevyn. ABSENT: rales, rhonchi, wheezes Cardiovascular exam: PRESENT: RRR. ABSENT: diastolic murmur, rubs, systolic murmur GI/Abdominal exam: PRESENT: normal bowel sounds, soft, other. ABSENT: distended, guarding, mass, organolmegaly, rebound, tenderness Rectal exam: PRESENT: deferred Extremities exam: PRESENT: full ROM. ABSENT: calf tenderness, clubbing, pedal edema Musculoskeletal exam: PRESENT: normal inspection Neurological exam: PRESENT: alert, awake, CN II-XII grossly intact, other - Moves toes on L foot some. Skin exam: PRESENT: other - Large unstagable decubitus on sacrum with bone exposed. Tubes/Lines: PRESENT: Other - Trach Laboratory/Radiographs Laboratory Results: 04/06/20 07:00 04/06/20 07:00 04/06/20 04/06/20 04/06/20 04:20 07:00 07:00 WBC RBC Hgb Hct MCV MCH MCHC RDW Plt Count Seg Neutrophils % Sodium 134.5 L Potassium 4.7 Chloride 101 Carbon Dioxide 24 Anion Gap 10 BUN 77 H Creatinine 1.89 H Est GFR ( Amer) 43 L Glucose 95 Calcium 8.3 L Ionized Calcium Tessa 1.12 L Phosphorus 5.8 H Magnesium 1.7 Total Bilirubin 0.9 AST 36 Alkaline Phosphatase 97 Total Protein 4.7 L Albumin 2.3 L Urine Color LEISA Urine Appearance CLOUDY Urine pH 5.0 Ur Specific [place] 1.024 Urine Protein >=500 H Urine Glucose (UA) 50 H Urine Ketones TRACE H Urine Blood SMALL H Urine Nitrite NEGATIVE Ur Leukocyte Esterase MODERATE H Urine WBC (Auto) 79 Urine RBC (Auto) 147 04/06/20 07:00 WBC 10.6 H RBC 2.11 L Hgb 6.2 L D Hct 19.2 L MCV 91 MCH 29.6 MCHC 32.5 RDW 21.0 H Plt Count 168 Seg Neutrophils % 75.0 Sodium Potassium Chloride Carbon Dioxide Anion Gap BUN Creatinine Est GFR ( Amer) Glucose Calcium Ionized Calcium Tessa Phosphorus Magnesium Total Bilirubin AST Alkaline Phosphatase Total Protein Albumin Urine Color Urine Appearance Urine pH Ur Specific [place] Urine Protein Urine Glucose (UA) Urine Ketones Urine Blood Urine Nitrite Ur Leukocyte Esterase Urine WBC (Auto) Urine RBC (Auto) 02/08/20 02/08/20 02/21/20 09:49 13:11 04:50 Troponin I 0.160 0.155 NT-Pro-B Natriuret Pep 5540 H 63044 H 02/26/20 03/09/20 03/20/20 05:35 04:00 06:10 Troponin I NT-Pro-B Natriuret Pep 38922 H 44883 H 64716 H Impressions: Hip/Pelvis X-Ray 02/08/20 00:00 IMPRESSION: No acute fracture. Severe degenerative changes of the left hip. Knee X-Ray 02/08/20 00:00 IMPRESSION: NEGATIVE STUDY OF THE RIGHT KNEE. NO RADIOGRAPHIC EVIDENCE OF ACUTE INJURY. Renal Ultrasound 02/21/20 00:00 IMPRESSION: Increased echogenicity of the renal parenchyma suggestive of underlying chronic medical renal disease. There is no hydronephrosis. There is a Ryan catheter within the urinary bladder. Head CT 03/08/20 08:56 IMPRESSION: MILD CHRONIC CHANGES OF ATROPHY AND MICROVASCULAR ISCHEMIA. NO ACUTE PROCESS. EVIDENCE OF ACUTE STROKE: NO. Chest CT 03/08/20 10:12 IMPRESSION: Extensive bilateral infiltrates. No pneumothorax. KUB X-Ray 04/01/20 00:00 IMPRESSION: NG tube as described. Chest X-Ray 04/02/20 05:00 IMPRESSION: NO SIGNIFICANT INTERVAL CHANGE IN APPEARANCE OF THE CHEST. All labs, radiographs, diagnostic studies and EKGs were personally reviewed: Yes In addition, reports of radiographic and diagnostic studies were read: Yes Assessment and Plan - Diagnosis (1) Acute respiratory failure due to COVID-19 Is this a current diagnosis for this admission?: Yes Plan: He has finally tested negative on 03/30. (2) Acute on chronic diastolic CHF (congestive heart failure) Is this a current diagnosis for this admission?: Yes Plan: Inactive (3) Coronary artery disease Qualifiers: Coronary Disease-Associated Artery/Lesion type: unspecified vessel or lesion type [place] vs. transplanted heart: [place] heart Associated angina: with unspecified angina Qualified Code(s): I25.119 - Atherosclerotic heart disease of [place] coronary artery with unspecified angina pectoris Is this a current diagnosis for this admission?: Yes Plan: Inactive (4) Obesity (BMI 30-39.9) Is this a current diagnosis for this admission?: Yes Plan: BMI at this point is 34. (5) Anemia Qualifiers: Anemia type: iron deficiency Is this a current diagnosis for this admission?: Yes Plan: His Hgb is down to 6.2 from 9.1 due to chronic disease process and bleeding from debridement. He will receive 2units on HD today. (6) CKD (chronic kidney disease) stage 5, GFR less than 15 ml/min Is this a current diagnosis for this admission?: Yes Plan: To get perma-cath this week and diverting colostomy with PEG tube. (7) HTN (hypertension) Qualifiers: Hypertension type: essential hypertension Qualified Code(s): I10 - Essential (primary) hypertension Is this a current diagnosis for this admission?: Yes Plan: Controlled (8) Polyneuropathy associated with critical illness Is this a current diagnosis for this admission?: Yes Plan: There has been no progress made thus far. (9) Osteomyelitis Qualifiers: Osteomyelitis type: other chronic Osteomyelitis location: other site Qualified Code(s): M86.68 - Other chronic osteomyelitis, other site Is this a current diagnosis for this admission?: Yes Plan: Continue debridement and antibiotics. Plan Summary: He will need PEG, HD cath and colostomy this week before LTAC placement. Critical Time Critical Time (minutes): 35 Level of Care: ICU Anticipated discharge: Other - LTAC Anticipated DC Timeframe: Other -: 1. The care of a critical patient is a dynamic process. This note is a national account representative synopsis but static in nature. The timeframe for treatments given in order is not necessarily the actual time these treatments may have been done. 2. This patient requires critical care secondary to ongoing requirements for therapy not offered or safe outside the critical care environment. Transfer to a lower level of care will result in altered life or limb morbidity and mortality. 3. Multidisciplinary rounds completed. 4. ABCDE bundle addressed.
[2020-04-06] MEDS: CHOLECALCIFEROL (D3) 1,000 UNIT (25 MCG) TABLET NG SCH ×3 (10:26→17:39)
[2020-04-06] MEDS: CITALOPRAM HYDROBROMIDE 20 MG TABLET NG SCH (10:26)
[2020-04-06] MEDS: AMINO AC/PROTEIN HYDR/WHEY PRO 11 GM/45 ML PKT NG SCH ×4 (10:26→22:14)
[2020-04-06] MEDS: PANTOPRAZOLE SODIUM 40 MG VIAL IV SCH (10:26)
[2020-04-06] MEDS: POTASSIUM CHLORIDE 20 MEQ PACKET NG SCH (10:26)
[2020-04-06] MEDS: HYDRALAZINE HCL 25 MG TABLET NG SCH ×3 (10:27→22:07)
[2020-04-06] MEDS: CALCITRIOL 1 MCG/ML ORAL SOLN 15 ML NG SCH (10:27)
[2020-04-06] MEDS: LABETALOL HCL 200 MG TABLET NG SCH ×3 (10:27→22:08)
[2020-04-06] MEDS: NYSTATIN TOPICAL POWDER 15 GM TP SCH ×2 (10:29→22:14)
[2020-04-06] MEDS: HYDROMORPHONE HCL INJ/PF 2 MG/ML AMPULE IV PRN (11:41)
[2020-04-06] MEDS: COLLAGENASE CLOSTRIDIUM HIST. OINT 30 GM TOP SCH (11:49)
[2020-04-06 16:59] LABS: HEMATOCRIT 30.9 % (37.9-51.0); MEAN CORPUSCULAR HEMOGLOBIN 29.8 pg (27.0-33.4); MEAN CORPUSCULAR HGB CONC 33.3 g/dL (32.0-36.0); MEAN CORPUSCULAR VOLUME 89 fl (80-97); PLATELET COUNT 153 10^3/uL (150-450); RED BLOOD COUNT 3.46 10^6/uL (4.35-5.55); RED CELL DISTRIBUTION WIDTH 18.1 % (11.5-14.0); WHITE BLOOD COUNT 9.4 10^3/uL (4.0-10.5)
[2020-04-06 17:01] LABS: HEMOGLOBIN 10.3 g/dL (13.5-17.0)
[2020-04-06] MEDS ORDERED: VANCOMYCIN HCL 750 MG in DEXTROSE 5%-WATER 250 ML IV SCH (18:00)
--- NOTE | 2020-04-07 00:11 | PDOC PROGRESS REPORT ---
Subjective Progress Note for:: 04/06/20 Subjective:: I am seeing the patient during dialysis this morning. He is finally out of isolation as he is now Covid negative from March 30. He is a still on trach collar. He is awake able to nod on questions answer both by yes or no. He underwent surgical debridement of his sacral decubitus yesterday and lost blood. Hemoglobin is 6.2 this morning. We are waiting for the blood to be transfused this morning during dialysis. Nevertheless he is stable and comfortable rec eiving dialysis this morning. Reason For Visit: WEAKNESS,ELEVATED TROPONIN,CHF Physical Exam Vital Signs: Temp Pulse Resp BP Pulse Ox 98.2 F 91 40 H 109/50 L 99 04/06/20 08:26 04/06/20 07:45 04/06/20 08:26 04/06/20 08:26 04/06/20 08:26 Pulse Oximeter Nocturnal Start: 02/08/20 13:55 Freq: RTQ4 Status: Complete Protocol: Document 02/09/20 04:00 LRO (Rec: 02/09/20 05:38 LRO [email or web address]) Nocturnal Pulse Oximetry Equipment Usage Equipment in Use Oxygen Delivery Method (includes room Room Air air) O2 Sat by Pulse Oximetry (92-100) 95 Continuous SpO2 Machine # 2 Pulse Oximeter Nocturnal Start: 02/10/20 11:39 Freq: RTQ4 Status: Complete Protocol: Document 02/11/20 04:06 PMU (Rec: 02/11/20 05:06 PMU [email or web address]) Nocturnal Pulse Oximetry Equipment Usage Equipment in Use Oxygen Delivery Method (includes room Room Air air) O2 Sat by Pulse Oximetry (92-100) 93 Continuous SpO2 Machine # N2 Intake & Output 04/05/20 04/06/20 04/07/20 06:59 06:59 06:59 Intake Total 1493 2168 Output Total 90 310 30 Balance 1403 1858 -30 Weight 106.7 kg 105.6 kg Vitals during dialysis: Blood pressure 124/45, heart rate of 94, respirations 26, oxygen saturation 98% on trach collar. His blood flow rate in dialysis is 350 mL/min and dialysate flow rate of 800 mL/min. Exam: General appearance: PRESENT: On trach collar, comfortable, cooperative, well- developed, well-nourished Head exam: PRESENT: atraumatic, normocephalic Eye exam: PRESENT: conjunctiva pale, PERRLA. ABSENT: scleral icterus Neck exam: ABSENT: JVD Respiratory exam: PRESENT: Diminished breath sounds. ABSENT: crackles, rales, rhonchi, unlabored, wheezes Cardiovascular exam: PRESENT: Irregularly irregular rate rhythm -+S1, +S2. ABSENT: diastolic murmur, systolic murmur GI/Abdominal exam: PRESENT: normal bowel sounds, soft. ABSENT: guarding, mass, tenderness Extremities exam: +1 bilateral lower extremity and upper extremity edema Neurological exam: PRESENT: alert, awake, responding by nodding. Skin exam: PRESENT: dry, warm, Cardiovascular exam: PRESENT: +S1, +S2 GI/Abdominal exam: PRESENT: normal bowel sounds, soft. ABSENT: organomegaly, tenderness Results Laboratory Results: 04/06/20 07:00 04/06/20 07:00 04/06/20 04/06/20 04/06/20 04:20 07:00 07:00 WBC RBC Hgb Hct MCV MCH MCHC RDW Plt Count Seg Neutrophils % Sodium 134.5 L Potassium 4.7 Chloride 101 Carbon Dioxide 24 Anion Gap 10 BUN 77 H Creatinine 1.89 H Est GFR ( Amer) 43 L Glucose 95 Calcium 8.3 L Ionized Calcium [place]essa 1.12 L Phosphorus 5.8 H Magnesium 1.7 Total Bilirubin 0.9 AST 36 Alkaline Phosphatase 97 Total Protein 4.7 L Albumin 2.3 L Urine Color LEISA Urine Appearance CLOUDY Urine pH 5.0 Ur Specific [place] 1.024 Urine Protein >=500 H Urine Glucose (UA) 50 H Urine Ketones TRACE H Urine Blood SMALL H Urine Nitrite NEGATIVE Ur Leukocyte Esterase MODERATE H Urine WBC (Auto) 79 Urine RBC (Auto) 147 04/06/20 07:00 WBC 10.6 H RBC 2.11 L Hgb 6.2 L D Hct 19.2 L MCV 91 MCH 29.6 MCHC 32.5 RDW 21.0 H Plt Count 168 Seg Neutrophils % 75.0 Sodium Potassium Chloride Carbon Dioxide Anion Gap BUN Creatinine Est GFR ( Amer) Glucose Calcium Ionized Calcium [place] Phosphorus Magnesium Total Bilirubin AST Alkaline Phosphatase Total Protein Albumin Urine Color Urine Appearance Urine pH Ur Specific [place] Urine Protein Urine Glucose (UA) Urine Ketones Urine Blood Urine Nitrite Ur Leukocyte Esterase Urine WBC (Auto) Urine RBC (Auto) 02/08/20 02/08/2020 09:49 13:11 04:50 Troponin I 0.160 0.155 NT-Pro-B Natriuret Pep 5540 H 46022 H 02/26/20 03/09/20 03/20/20 05:35 04:00 06:10 Troponin I NT-Pro-B Natriuret Pep 94701 H 99440 H 45477 H Impressions: Hip/Pelvis X-Ray 02/08/20 00:00 IMPRESSION: No acute fracture. Severe degenerative changes of the left hip. Knee X-Ray 02/08/20 00:00 IMPRESSION: NEGATIVE STUDY OF THE RIGHT KNEE. NO RADIOGRAPHIC EVIDENCE OF ACUTE INJURY. Renal Ultrasound 02/21/20 00:00 IMPRESSION: Increased echogenicity of the renal parenchyma suggestive of underlying chronic medical renal disease. There is no hydronephrosis. There is a Ryan catheter within the urinary bladder. Head CT 03/08/20 08:56 IMPRESSION: MILD CHRONIC CHANGES OF ATROPHY AND MICROVASCULAR ISCHEMIA. NO ACUTE PROCESS. EVIDENCE OF ACUTE STROKE: NO. Chest CT 03/08/20 10:12 IMPRESSION: Extensive bilateral infiltrates. No pneumothorax. KUB X-Ray 04/01/20 00:00 IMPRESSION: NG tube as described. Chest X-Ray 04/02/20 05:00 IMPRESSION: NO SIGNIFICANT INTERVAL CHANGE IN APPEARANCE OF THE CHEST. Assessment & Plan - Diagnosis (1) Acute kidney injury superimposed on chronic kidney disease Is this a current diagnosis for this admission?: Yes Plan: Patient is still oligoanuric c, requiring renal replacement therapy. Patient likely to have ATN in the background of cardiomyopathy with ejection fraction of 25 to 30% and grade 3 diastolic dysfunction. Continue renal replacement therapy support. We will do dialysis today for 3.5 hours, using the patient's dialysis catheter, with 2 potassium bath, blood flow rate of 300 mL per minute, dialysate flow rate of 800 mL per minute, ultrafiltration 2.5 L as tolerated, no heparin and Procrit with 20,000 units during dialysis intravenously. Patient will be transfused during dialysis. Patient is currently being monitored throughout dialysis treatment. Temporary dialysis catheter was removed last week. Catheter tip was positive for MSSA. Annual dialysis catheter was placed after a line holiday. Patient currently on vancomycin and meropenem. (2) Decubitus ulcer of sacral region, unstageable Is this a current diagnosis for this admission?: Yes Plan: Status post surgical debridement couple of times. (3) Acute respiratory failure due to COVID-19 Is this a current diagnosis for this admission?: Yes Plan: Per stock receiver. On trach collar. (4) Hypocalcemia Is this a current diagnosis for this admission?: Yes Plan: Currently on calcitriol , and increased dose of vitamin D. Now within normal limits. (5) Anemia Qualifiers: Anemia type: iron deficiency Is this a current diagnosis for this admission?: Yes Plan: Acute blood loss after sacral decubitus debridement yesterday. Currently on Retacrit during dialysis. Transfusion during dialysis. (6) Atrial fibrillation Qualifiers: Atrial fibrillation type: persistent (not longstanding) Qualified Code(s): I48.19 - Other persistent atrial fibrillation; I48.1 - Persistent atrial fibrill ation Is this a current diagnosis for this admission?: Yes Plan: Previously on diltiazem drip. Now on IV digoxin. (7) Hypoalbuminemia Is this a current diagnosis for this admission?: Yes Plan: Chronic and persistent. (8) COVID-19 virus infection Is this a current diagnosis for this admission?: Yes Plan: Finally tested Covid negative on 03/30/2020. (9) Hyponatremia Is this a current diagnosis for this admission?: Yes Plan: Mild and stable.. (10) MRSA pneumonia Qualifiers: Laterality: bilateral Lung location: unspecified part of lung Qualified C ode(s): J15.212 - Pneumonia due to Methicillin resistant Staphylococcus aureus Is this a current diagnosis for this admission?: Yes Plan: Completed treatment with cefepime and doxycycline. 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
[2020-04-07] MEDS: LEVALBUTEROL HCL NEB 1.25 MG/3 ML AMPUL NEB SCH ×4 (02:34→20:46)
[2020-04-07] MEDS: MEROPENEM 1 GM in NORMAL SALINE 50 ML IV SCH ×3 (02:50→18:49)
[2020-04-07 04:43] LABS: ABSOLUTE BASOPHILS # (AUTO) 0.1 10^3/uL (0.0-0.2); ABSOLUTE EOSINOPHILS # (AUTO) 0.5 10^3/uL (0.0-0.6); ABSOLUTE LYMPHOCYTES (AUTO) 1.6 10^3/uL (0.5-4.7); ABSOLUTE MONOCYTES (AUTO) 0.7 10^3/uL (0.1-1.4); ABSOLUTE NEUT (AUTO) 7.2 10^3/uL (1.7-8.2); BASOPHILS % (AUTO) 0.6 % (0-2); EOSINOPHILS % (AUTO) 5.4 % (0-6); HEMATOCRIT 27.7 % (37.9-51.0); HEMOGLOBIN 9.4 g/dL (13.5-17.0); LYMPHOCYTES % (AUTO) 15.5 % (13-45); MEAN CORPUSCULAR HEMOGLOBIN 30.3 pg (27.0-33.4); MEAN CORPUSCULAR HGB CONC 33.9 g/dL (32.0-36.0); MEAN CORPUSCULAR VOLUME 90 fl (80-97); PLATELET COUNT 172 10^3/uL (150-450); RED CELL DISTRIBUTION WIDTH 18.7 % (11.5-14.0); SEGMENTED NEUTROPHILS % (AUTO) 71.5 % (42-78); TOTAL CELLS COUNTED % (AUTO) 100 %; WHITE BLOOD COUNT 10.1 10^3/uL (4.0-10.5)
--- NOTE | 2020-04-07 08:41 | PDOC CRITICAL CARE PROG REPORT ---
General Date:: 04/07/20 Resuscitation Status: Full Code Events in the past 12 to 24 Hours:: Blood cultures negative. Review of systems relevant to events:: Pulmonary. Neurological. Reason for ICU Addmission:: On trach collar at 40%. Infected sacral wound. - Medications: Medications reviewed and adjusted accordingly: Yes Vasopressors:: None Sedation:: None Physical Exam Vital Signs: Temp Pulse Resp BP Pulse Ox 99.1 F 105 H 21 H 97/62 L 100 04/07/20 08:00 04/07/20 07:53 04/07/20 08:00 04/07/20 07:44 04/07/20 08:00 Pulse Oximeter Nocturnal Start: 02/08/20 13:55 Freq: RTQ4 Status: Complete Protocol: Document 02/09/20 04:00 LRO (Rec: 02/09/20 05:38 LRO [id number]) Nocturnal Pulse Oximetry Equipment Usage Equipment in Use Oxygen Delivery Method (includes room Room Air air) O2 Sat by Pulse Oximetry (92-100) 95 Continuous SpO2 Machine # 2 Pulse Oximeter Nocturnal Start: 02/10/20 11:39 Freq: RTQ4 Status: Complete Protocol: Document 02/11/20 04:06 PMU (Rec: 02/11/20 05:06 PMU [email or web address]) Nocturnal Pulse Oximetry Equipment Usage Equipment in Use Oxygen Delivery Method (includes room Room Air air) O2 Sat by Pulse Oximetry (92-100) 93 Continuous SpO2 Machine # N2 Intake & Output 04/06/20 04/07/20 04/08/20 06:59 06:59 06:59 Intake Total 2168 2970 Output Total 310 4615 Balance 1858 -1645 Weight 105.6 kg 105.2 kg Weight/Height Weight 105.2 kg Height 5 ft 9 in General appearance: PRESENT: no acute distress, obese Head exam: PRESENT: atraumatic, normocephalic Eye exam: PRESENT: conjunctiva pink, EOMI, PERRLA. ABSENT: scleral icterus Ear exam: PRESENT: normal external ear exam Mouth exam: PRESENT: moist, tongue midline Respiratory exam: PRESENT: clear to auscultation kevyn, crackles - Slight. ABSENT: rales, rhonchi, wheezes Cardiovascular exam: PRESENT: RRR, tachycardia - As before.. ABSENT: diastolic murmur, rubs, systolic murmur GI/Abdominal exam: PRESENT: normal bowel sounds, soft. ABSENT: distended, guarding, mass, organolmegaly, rebound, tenderness Rectal exam: PRESENT: deferred Extremities exam: PRESENT: full ROM, other - Heel protectors on. Ulcers clean and smaller.. ABSENT: calf tenderness, clubbing, pedal edema Neurological exam: PRESENT: altered, awake, CN II-XII grossly intact, other - Still profoundly weak. Skin exam: PRESENT: other - Large sacral ulcer. Tubes/Lines: PRESENT: Dialysis catheter, Nasogastic Tube, Other - Tracheotomy Laboratory/Radiographs Laboratory Results: 04/07/20 04:02 04/06/20 07:00 04/06/20 04/06/20 04/07/20 08:23 16:35 04:02 WBC 9.4 10.1 RBC 3.46 L 3.10 L Hgb 10.3 L D 9.4 L Hct 30.9 L 27.7 L MCV 89 90 MCH 29.8 30.3 MCHC 33.3 33.9 RDW 18.1 H 18.7 H Plt Count 153 172 Seg Neutrophils % 71.5 Blood Type O POSITIVE Antibody Screen NEGATIVE 04/01/20 17:50 Blood Blood Culture - Final NO GROWTH IN 5 DAYS 04/01/20 17:17 Blood Blood Culture - Final NO GROWTH IN 5 DAYS 02/08/20 02/08/20 02/21/20 09:49 13:11 04:50 Troponin I 0.160 0.155 NT-Pro-B Natriuret Pep 5540 H 13113 H 02/26/20 03/09/20 03/20/20 05:35 04:00 06:10 Troponin I NT-Pro-B Natriuret Pep 87850 H 65376 H 91181 H Impressions: Hip/Pelvis X-Ray 02/08/20 00:00 IMPRESSION: No acute fracture. Severe degenerative changes of the left hip. Knee X-Ray 02/08/20 00:00 IMPRESSION: NEGATIVE STUDY OF THE RIGHT KNEE. NO RADIOGRAPHIC EVIDENCE OF ACUTE INJURY. Renal Ultrasound 02/21/20 00:00 IMPRESSION: Increased echogenicity of the renal parenchyma suggestive of underlying chronic medical renal disease. There is no hydronephrosis. There is a Ryan catheter within the urinary bladder. Head CT 03/08/20 08:56 IMPRESSION: MILD CHRONIC CHANGES OF ATROPHY AND MICROVASCULAR ISCHEMIA. NO ACUTE PROCESS. EVIDENCE OF ACUTE STROKE: NO. Chest CT 03/08/20 10:12 IMPRESSION: Extensive bilateral infiltrates. No pneumothorax. KUB X-Ray 04/01/20 00:00 IMPRESSION: NG tube as described. Chest X-Ray 04/02/20 05:00 IMPRESSION: NO SIGNIFICANT INTERVAL CHANGE IN APPEARANCE OF THE CHEST. All labs, radiographs, diagnostic studies and EKGs were personally reviewed: Yes In addition, reports of radiographic and diagnostic studies were read: Yes Assessment and Plan - Diagnosis (1) Polyneuropathy associated with critical illness Is this a current diagnosis for this admission?: Yes Plan: This is his main reason for needing LTAC. Working with PT but no significant ramos nge yet. (2) Osteomyelitis Qualifiers: Osteomyelitis type: other chronic Osteomyelitis location: other site Qualified Code(s): M86.68 - Other chronic osteomyelitis, other site Is this a current diagnosis for this admission?: Yes Plan: Continue dressing changes and antibiotics. (3) CKD (chronic kidney disease) stage 5, GFR less than 15 ml/min Is this a current diagnosis for this admission?: Yes Plan: He will need a Perma-cath. (4) Acute on chronic diastolic CHF (congestive heart failure) Is this a current diagnosis for this admission?: Yes Plan: Inactive (5) Coronary artery disease Qualifiers: Coronary Disease-Associated Artery/Lesion type: unspecified vessel or lesion type [place] vs. transplanted heart: [place] heart Associated angina: with unspecified angina Qualified Code(s): I25.119 - Atherosclerotic heart disease of [place] coronary artery with unspecified angina pectoris Is this a current diagnosis for this admission?: Yes Plan: Inactive (6) Obesity (BMI 30-39.9) Is this a current diagnosis for this admission?: Yes Plan: Less obese, loss of weight and muscle mass with acute illness. (7) Anemia Qualifiers: Anemia type: iron deficiency Is this a current diagnosis for this admission?: Yes Plan: Hgb 9.4 with transfusion (8) HTN (hypertension) Qualifiers: Hypertension type: essential hypertension Qualified Code(s): I10 - Essential (primary) hypertension Is this a current diagnosis for this admission?: Yes Plan: Controlled Plan Summary: Needs a Perma-cath, diverting colostomy and PEG prior to transfer to LTAC. See if he can last 24 hours on trach collar today. Critical Time Critical Time (minutes): 35 Level of Care: ICU Anticipated discharge: Acute Rehab Anticipated DC Timeframe: Other -: 1. The care of a critical patient is a dynamic process. This note is a personal service representative synopsis but static in nature. The timeframe for treatments given in order is not necessarily the actual time these treatments may have been done. 2. This patient requires critical care secondary to ongoing requirements for therapy not offered or safe outside the critical care environment. Transfer to a lower level of care will result in altered life or limb morbidity and mortality. 3. Multidisciplinary rounds completed. 4. ABCDE bundle addressed.
[2020-04-07] MEDS: LABETALOL HCL 200 MG TABLET NG SCH ×2 (08:59→22:39)
[2020-04-07] MEDS: HYDRALAZINE HCL 25 MG TABLET NG SCH ×2 (08:59→22:39)
[2020-04-07] MEDS: NYSTATIN TOPICAL POWDER 15 GM TP SCH ×2 (09:00→22:41)
[2020-04-07] MEDS: CHOLECALCIFEROL (D3) 1,000 UNIT (25 MCG) TABLET NG SCH ×3 (09:00→18:49)
[2020-04-07] MEDS: CITALOPRAM HYDROBROMIDE 20 MG TABLET NG SCH (09:00)
[2020-04-07] MEDS: AMINO AC/PROTEIN HYDR/WHEY PRO 11 GM/45 ML PKT NG SCH ×4 (09:00→22:39)
[2020-04-07] MEDS: CALCITRIOL 1 MCG/ML ORAL SOLN 15 ML NG SCH (09:01)
[2020-04-07] MEDS: PANTOPRAZOLE SODIUM 40 MG VIAL IV SCH (09:01)
[2020-04-07] MEDS: COLLAGENASE CLOSTRIDIUM HIST. OINT 30 GM TOP SCH (09:01)
[2020-04-07] MEDS: HYDROMORPHONE HCL INJ/PF 2 MG/ML AMPULE IV PRN (09:33)
[2020-04-07] MEDS: HYDRALAZINE HCL INJ/PF 20 MG/1 ML SDV IV PRN (15:41)
[2020-04-08] MEDS: LEVALBUTEROL HCL NEB 1.25 MG/3 ML AMPUL NEB SCH ×4 (01:36→20:53)
[2020-04-08] MEDS: MEROPENEM 1 GM in NORMAL SALINE 50 ML IV SCH ×3 (02:44→18:41)
[2020-04-08 04:25] LABS: ARTERIAL BLOOD BASE EXCESS 1.5 mmol/L; ARTERIAL BLOOD H2CO3 1.11 mmol/L (1.05-1.35); ARTERIAL BLOOD HCO3 25.4 mmol/L (20-24); ARTERIAL BLOOD O2 SATURATION 96.8 % (94-98); ARTERIAL BLOOD PCO2 36.9 mmHg (35-45); ARTERIAL BLOOD PH 7.46 (7.35-7.45); ARTERIAL BLOOD TOTAL CO2 26.6 mmol/L (23-27)
[2020-04-08 04:27] LABS: ARTERIAL BLOOD FIO2 35%
[2020-04-08 04:39] LABS: APPEARANCE,URINE CLOUDY; BILIRUBIN,URINE NEGATIVE (NEGATIVE); COLOR,URINE AMBER; GLUCOSE, URINE 50 mg/dL (NEGATIVE); KETONES,URINE TRACE mg/dL (NEGATIVE); LEUKOCYTE ESTERASE,URINE MODERATE (NEGATIVE); NITRITE,URINE NEGATIVE (NEGATIVE); PROTEIN,URINE >=500 mg/dL (NEGATIVE); URINE SPECIFIC GRAVITY 1.025
[2020-04-08] MEDS ORDERED: EPOETIN ALFA-EPBX 10,000 UNIT in SYRINGE, DISPOSABLE, 1 EACH IV PRN (05:00)
[2020-04-08] MEDS ORDERED: HEPARIN SOD (PORCINE) 1,000 UNIT/ML 10 ML VIAL IV PRN ×2 (05:00)
[2020-04-08] MEDS ORDERED: NORMAL SALINE 1000 ML 1,000 ML IV PRN (05:00)
[2020-04-08 07:29] LABS: ALBUMIN 2.3 g/dL (3.5-5.0); ALKALINE PHOSPHATASE 108 U/L (38-126); ANION GAP 9 (5-19); ASPARTATE AMINO TRANSFERASE 31 U/L (17-59); BILIRUBIN,DIRECT 0.7 mg/dL (0.0-0.4); BILIRUBIN,TOTAL 0.9 mg/dL (0.2-1.3); BLOOD UREA NITROGEN 61 mg/dL (7-20); CALCIUM 8.4 mg/dL (8.4-10.2); CARBON DIOXIDE 26 mmol/L (22-30); CHLORIDE 100 mmol/L (98-107); GLUCOSE 86 mg/dL (75-110); PHOSPHORUS 4.6 mg/dL (2.5-4.5); TOTAL PROTEIN 4.9 g/dL (6.3-8.2)
[2020-04-08 07:33] LABS: VANCOMYCIN,TROUGH 21.6 ug/mL (5.0-20.0)
[2020-04-08 08:06] LABS: HEMATOCRIT 26.6 % (37.9-51.0); HEMOGLOBIN 9.1 g/dL (13.5-17.0); MEAN CORPUSCULAR HEMOGLOBIN 30.4 pg (27.0-33.4); MEAN CORPUSCULAR HGB CONC 34.3 g/dL (32.0-36.0); MEAN CORPUSCULAR VOLUME 89 fl (80-97); PLATELET COUNT 199 10^3/uL (150-450); RED CELL DISTRIBUTION WIDTH 18.4 % (11.5-14.0); WHITE BLOOD COUNT 9.3 10^3/uL (4.0-10.5)
--- NOTE | 2020-04-08 08:14 | RADIOLOGY REPORT (SQ) ---
EXAM DESCRIPTION: CHEST SINGLE VIEW IMAGES COMPLETED DATE/TIME: 04/08/2020 6:52 am REASON FOR STUDY: vent COMPARISON: 04/02/2020 NUMBER OF VIEWS: One view. TECHNIQUE: Single frontal radiographic image of the chest acquired. LIMITATIONS: None. FINDINGS: LUNGS AND PLEURA: Stable appearance. MEDIASTINUM AND HILAR STRUCTURES: Stable heart size and mediastinal structures. HEART AND VASCULAR STRUCTURES: Stable appearance. SUPPORT DEVICES: Appropriate location without change. BONES: No acute findings. OTHER: No other significant finding. IMPRESSION: STABLE APPEARANCE OF THE CHEST. SUPPORT DEVICES UNCHANGED. TECHNICAL DOCUMENTATION: JOB ID: [id number] 2010 [employer]- All Rights Reserved Reading location - IP/workstation name: [email or web address]
[2020-04-08 08:39] LABS: ABSOLUTE LYMPHOCYTES# (MANUAL) 1.2 10^3/uL (0.5-4.7); ABSOLUTE MONOCYTES # (MANUAL) 0.4 10^3/uL (0.1-1.4); BAND NEUTROPHILS % (MANUAL) 1 % (3-5); BASOPHILS % (MANUAL) 0 % (0-2); EOSINOPHILS % (MANUAL) 2 % (0-6); LYMPHOCYTES % (MANUAL) 13 % (13-45); MONOCYTES % (MANUAL) 4 % (3-13); SEGMENTED NEUTROPHILS % (MAN) 80 % (42-78); TOTAL CELLS COUNTED 100
[2020-04-08 08:43] LABS: ANISOCYTOSIS 2+; HYPOCHROMASIA 1+; PLATELET COMMENT ADEQUATE; PLATELET LARGE PRESENT
--- NOTE | 2020-04-08 09:11 | PDOC PROGRESS REPORT ---
Subjective Progress Note for:: 04/08/20 Subjective:: 70-year-old male with multiple issues. Currently he is on the ventilator due to pneumonia/COVID-19 infection. He also has developed a large sacral decubitus and renal failure. He is in need of a permacath for semipermanent dialysis access. He also will require a G-tube for feedings and a diverting colostomy to help keep his decubitus clean. He has a tracheostomy and is on and off ventilatory support. He does awaken to voice and nods appropriately to questio ns. He denies any discomfort this morning. Reason For Visit: WEAKNESS,ELEVATED TROPONIN,CHF Physical Exam Vital Signs: Temp Pulse Resp BP Pulse Ox 98.6 F 96 22 H 108/47 L 99 04/08/20 08:00 04/08/20 08:00 04/08/20 08:00 04/08/20 08:00 04/08/20 08:00 Pulse Oximeter Nocturnal Start: 02/08/20 13:55 Freq: RTQ4 Status: Complete Protocol: Document 02/09/20 04:00 LRO (Rec: 02/09/20 05:38 LRO [id number]) Nocturnal Pulse Oximetry Equipment Usage Equipment in Use Oxygen Delivery Method (includes room Room Air air) O2 Sat by Pulse Oximetry (92-100) 95 Continuous SpO2 Machine # 2 Pulse Oximeter Nocturnal Start: 02/10/20 11:39 Freq: RTQ4 Status: Complete Protocol: Document 02/11/20 04:06 PMU (Rec: 02/11/20 05:06 PMU [email or web address]) Nocturnal Pulse Oximetry Equipment Usage Equipment in Use Oxygen Delivery Method (includes room Room Air air) O2 Sat by Pulse Oximetry (92-100) 93 Continuous SpO2 Machine # N2 Intake & Output 04/07/20 04/08/20 04/09/20 06:59 06:59 06:59 Intake Total 3020 400 Output Total 4615 120 0 Balance -1595 280 0 Weight 105.2 kg 104.2 kg General appearance: PRESENT: cooperative, obese Head exam: PRESENT: normocephalic Eye exam: ABSENT: scleral icterus Mouth exam: PRESENT: neck supple Neck exam: PRESENT: tracheostomy Respiratory exam: PRESENT: other - Coarse breath sounds bilaterally Cardiovascular exam: ABSENT: tachycardia GI/Abdominal exam: PRESENT: soft. ABSENT: tenderness Rectal exam: PRESENT: other - Fecal management system in place Gentrourinary exam: PRESENT: indwelling catheter Musculoskeletal exam: ABSENT: ambulatory Neurological exam: PRESENT: alert Psychiatric exam: ABSENT: agitated Focused psych exam: ABSENT: psychomotor agitation Skin exam: PRESENT: other - Large sacral decubitus ulcer present. Results Laboratory Results: 04/08/20 07:55 04/08/20 07:00 04/08/20 04/08/20 04/08/20 04:00 04:00 07:00 WBC RBC Hgb Hct MCV MCH MCHC RDW Plt Count Seg Neutrophils % Carbonic Acid 1.11 HCO3/H2CO3 Ratio 22:1 ABG pH 7.46 H ABG pCO2 36.9 ABG pO2 84.0 ABG HCO3 25.4 H ABG O2 Saturation 96.8 ABG Base Excess 1.5 FiO2 35% Sodium 135.4 L Potassium 4.0 Chloride 100 Carbon Dioxide 26 Anion Gap 9 BUN 61 H Creatinine 1.56 H Est GFR ( Amer) 53 L Glucose 86 Calcium 8.4 Phosphorus 4.6 H Magnesium 1.7 Total Bilirubin 0.9 AST 31 Alkaline Phosphatase 108 Total Protein 4.9 L Albumin 2.3 L Urine Color LEISA Urine Appearance CLOUDY Urine pH 5.0 Ur Specific [place] 1.025 Urine Protein >=500 H Urine Glucose (UA) 50 H Urine Ketones TRACE H Urine Blood MODERATE H Urine Nitrite NEGATIVE Ur Leukocyte Esterase MODERATE H Urine WBC (Auto) 94 Urine RBC (Auto) 47 04/08/20 07:55 WBC 9.3 RBC 3.00 L Hgb 9.1 L Hct 26.6 L MCV 89 MCH 30.4 MCHC 34.3 RDW 18.4 H Plt Count 199 Seg Neutrophils % Not Reportable Carbonic Acid HCO3/H2CO3 Ratio ABG pH ABG pCO2 ABG pO2 ABG HCO3 ABG O2 Saturation ABG Base Excess FiO2 Sodium Potassium Chloride Carbon Dioxide Anion Gap BUN Creatinine Est GFR ( Amer) Glucose Calcium Phosphorus Magnesium Total Bilirubin AST Alkaline Phosphatase Total Protein Albumin Urine Color Urine Appearance Urine pH Ur Specific [place] Urine Protein Urine Glucose (UA) Urine Ketones Urine Blood Urine Nitrite Ur Leukocyte Esterase Urine WBC (Auto) Urine RBC (Auto) 02/08/20 02/08/20 02/21/20 09:49 13:11 04:50 Troponin I 0.160 0.155 NT-Pro-B Natriuret Pep 5540 H 07416 H 02/26/20 03/09/20 03/20/20 05:35 04:00 06:10 Troponin I NT-Pro-B Natriuret Pep 61139 H 85490 H 70595 H Impressions: Hip/Pelvis X-Ray 02/08/20 00:00 IMPRESSION: No acute fracture. Severe degenerative changes of the left hip. Knee X-Ray 02/08/20 00:00 IMPRESSION: NEGATIVE STUDY OF THE RIGHT KNEE. NO RADIOGRAPHIC EVIDENCE OF ACUTE INJURY. Renal Ultrasound 02/21/20 00:00 IMPRESSION: Increased echogenicity of the renal parenchyma suggestive of underlying chronic medical renal disease. There is no hydronephrosis. There is a Ryan catheter within the urinary bladder. Head CT 03/08/20 08:56 IMPRESSION: MILD CHRONIC CHANGES OF ATROPHY AND MICROVASCULAR ISCHEMIA. NO ACUTE PROCESS. EVIDENCE OF ACUTE STROKE: NO. Chest CT 03/08/20 10:12 IMPRESSION: Extensive bilateral infiltrates. No pneumothorax. KUB X-Ray 04/01/20 00:00 IMPRESSION: NG tube as described. Chest X-Ray 04/08/20 05:00 IMPRESSION: STABLE APPEARANCE OF THE CHEST. SUPPORT DEVICES UNCHANGED. Assessment & Plan - Diagnosis (1) COVID-19 virus infection Is this a current diagnosis for this admission?: Yes (2) Acute respiratory failure with hypoxia Is this a current diagnosis for this admission?: Yes - Time Anticipated Discharge Disposition: [facility] Facility Anticipated Discharge Timeframe: unknown - Plan Summary Plan Summary: 70-year-old male with multiple medical problems. He is in need of a diverting colostomy, permacath, and PEG tube. Plan for all 3 of these today in the operating room. Risk/benefits discussed with and other family member, informed consent obtained, and all questions answered.
--- NOTE | 2020-04-08 09:34 | Progress Note ---
Provider Note Provider Note: Patient currently receiving dialysis. Later today perma-cath, diverting colostomy and PEG in the OR. NPO
[2020-04-08] MEDS ORDERED: PHENYLEPHRINE HCL INJ/PF 10 MG/1 ML SDV ONE (10:57)
[2020-04-08] MEDS: HYDRALAZINE HCL 25 MG TABLET NG SCH ×2 (11:12→22:14)
[2020-04-08] MEDS: LABETALOL HCL 200 MG TABLET NG SCH ×2 (11:12→22:15)
[2020-04-08] MEDS: CITALOPRAM HYDROBROMIDE 20 MG TABLET NG SCH (11:12)
[2020-04-08] MEDS: AMINO AC/PROTEIN HYDR/WHEY PRO 11 GM/45 ML PKT NG SCH ×4 (11:14→22:15)
[2020-04-08] MEDS: CHOLECALCIFEROL (D3) 1,000 UNIT (25 MCG) TABLET NG SCH ×3 (11:14→17:57)
[2020-04-08] MEDS: CALCITRIOL 1 MCG/ML ORAL SOLN 15 ML NG SCH (11:14)
[2020-04-08] MEDS: PANTOPRAZOLE SODIUM 40 MG VIAL IV SCH (11:17)
[2020-04-08] MEDS: COLLAGENASE CLOSTRIDIUM HIST. OINT 30 GM TOP SCH (11:18)
[2020-04-08] MEDS: NYSTATIN TOPICAL POWDER 15 GM TP SCH ×2 (11:18→22:14)
[2020-04-08] MEDS: HYDROMORPHONE HCL INJ/PF 2 MG/ML AMPULE IV PRN (13:03)
[2020-04-08] MEDS ORDERED: PROPOFOL INJ 200 MG/20 ML VIAL IV ONE (14:36)
[2020-04-08] MEDS ORDERED: HYDROMORPHONE HCL INJ/PF 2 MG/ML AMPULE ONE (14:36)
[2020-04-08] MEDS ORDERED: EPHEDRINE SULFATE INJ 50 MG/1 ML AMPULE ONE (14:36)
[2020-04-08] MEDS ORDERED: MIDAZOLAM 2 MG/2 ML INJ ONE (14:36)
[2020-04-08] MEDS ORDERED: FENTANYL CITRATE INJ/PF 250 MCG/5 ML AMPULE ONE (14:36)
[2020-04-08] MEDS ORDERED: LIDOCAINE 1% INJ-PF (10 MG/ML) 30 ML SDV ONE (14:57)
[2020-04-08] MEDS ORDERED: BUPIVACAINE HCL 0.25 % INJ/PF (2.5 MG/1 ML) 30 ML VIAL ONE (14:57)
--- NOTE | 2020-04-08 16:38 | PDOC PROGRESS REPORT ---
Subjective Progress Note for:: 04/08/20 Subjective:: I am seeing the patient during dialysis treatment this morning. He continues to be into trach collar. He is awake and trying to mumble something but unfortunately difficult to understand. He is tolerating dialysis. Later today he is a scheduled to have a PermCath placed, diverting colostomy with PEG tube placement. Reason For Visit: WEAKNESS,ELEVATED TROPONIN,CHF Physical Exam Vital Signs: Temp Pulse Resp BP Pulse Ox 98.8 F 102 H 21 H 112/43 L 97 04/08/20 07:30 04/08/20 07:54 04/08/20 07:30 04/08/20 07:30 04/08/20 07:30 Pulse Oximeter Nocturnal Start: 02/08/20 13:55 Freq: RTQ4 Status: Complete Protocol: Document 02/09/20 04:00 LRO (Rec: 02/09/20 05:38 LRO [email or web address]) Nocturnal Pulse Oximetry Equipment Usage Equipment in Use Oxygen Delivery Method (includes room Room Air air) O2 Sat by Pulse Oximetry (92-100) 95 Continuous SpO2 Machine # 2 Pulse Oximeter Nocturnal Start: 02/10/20 11:39 Freq: RTQ4 Status: Complete Protocol: Document 02/11/20 04:06 PMU (Rec: 02/11/20 05:06 PMU [email or web address]) Nocturnal Pulse Oximetry Equipment Usage Equipment in Use Oxygen Delivery Method (includes room Room Air air) O2 Sat by Pulse Oximetry (92-100) 93 Continuous SpO2 Machine # N2 Intake & Output 04/07/20 04/08/20 04/09/20 06:59 06:59 06:59 Intake Total 3020 400 Output Total 4615 120 Balance -1595 280 Weight 105.2 kg 104.2 kg Exam: General appearance: PRESENT: Awake on trach collar, comfortably receiving dialysis Head exam: PRESENT: atraumatic, normocephalic Eye exam: PRESENT: conjunctiva pale, PERRLA. ABSENT: scleral icterus Neck exam: ABSENT: JVD Respiratory exam: PRESENT: Diminished breath sounds. ABSENT: crackles, rales, rhonchi, unlabored, wheezes Cardiovascular exam: PRESENT: Irregularly irregular rate rhythm -+S1, +S2. ABSENT: diastolic murmur, systolic murmur GI/Abdominal exam: PRESENT: normal bowel sounds, soft. ABSENT: guarding, mass, tenderness Extremities exam: +1 bilateral lower extremity pitting edema Neurological exam: PRESENT: alert, awake, difficult to understand. Skin exam: PRESENT: dry, warm, Cardiovascular exam: PRESENT: +S1, +S2 GI/Abdominal exam: PRESENT: normal bowel sounds, soft. ABSENT: organomegaly, tenderness Results Laboratory Results: 04/07/20 04:02 04/08/20 07:00 04/08/20 04/08/20 04/08/20 04:00 04:00 07:00 Carbonic Acid 1.11 HCO3/H2CO3 Ratio 22:1 ABG pH 7.46 H ABG pCO2 36.9 ABG pO2 84.0 ABG HCO3 25.4 H ABG O2 Saturation 96.8 ABG Base Excess 1.5 FiO2 35% Sodium 135.4 L Potassium 4.0 Chloride 100 Carbon Dioxide 26 Anion Gap 9 BUN 61 H Creatinine 1.56 H Est GFR ( Amer) 53 L Glucose 86 Calcium 8.4 Phosphorus 4.6 H Magnesium 1.7 Total Bilirubin 0.9 AST 31 Alkaline Phosphatase 108 Total Protein 4.9 L Albumin 2.3 L Urine Color LEISA Urine Appearance CLOUDY Urine pH 5.0 Ur Specific [place] 1.025 Urine Protein >=500 H Urine Glucose (UA) 50 H Urine Ketones TRACE H Urine Blood MODERATE H Urine Nitrite NEGATIVE Ur Leukocyte Esterase MODERATE H Urine WBC (Auto) 94 Urine RBC (Auto) 47 02/08/20 02/08/20 02/21/20 09:49 13:11 04:50 Troponin I 0.160 0.155 NT-Pro-B Natriuret Pep 5540 H 48444 H 02/26/20 03/09/20 03/20/20 05:35 04:00 06:10 Troponin I NT-Pro-B Natriuret Pep 46852 H 37649 H 66447 H Impressions: Hip/Pelvis X-Ray 02/08/20 00:00 IMPRESSION: No acute fracture. Severe degenerative changes of the left hip. Knee X-Ray 02/08/20 00:00 IMPRESSION: NEGATIVE STUDY OF THE RIGHT KNEE. NO RADIOGRAPHIC EVIDENCE OF ACUTE INJURY. Renal Ultrasound 02/21/20 00:00 IMPRESSION: Increased echogenicity of the renal parenchyma suggestive of underlying chronic medical renal disease. There is no hydronephrosis. There is a Ryan catheter within the urinary bladder. Head CT 03/08/20 08:56 IMPRESSION: MILD CHRONIC CHANGES OF ATROPHY AND MICROVASCULAR ISCHEMIA. NO ACUTE PROCESS. EVIDENCE OF ACUTE STROKE: NO. Chest CT 03/08/20 10:12 IMPRESSION: Extensive bilateral infiltrates. No pneumothorax. KUB X-Ray 04/01/20 00:00 IMPRESSION: NG tube as described. Assessment & Plan - Diagnosis (1) Acute kidney injury superimposed on chronic kidney disease Is this a current diagnosis for this admission?: Yes Plan: Patient is still oligoanuric, requiring renal replacement therapy. Patient l ikely to have ATN in the background of cardiomyopathy with ejection fraction of 25 to 30% and grade 3 diastolic dysfunction. Continue renal replacement therapy support. We will do dialysis today for 3.0 hours, using the patient's dialysis catheter, with 3potassium bath, blood flow rate of 350 mL per minute, dialysate flow rate of 800 mL per minute, ultrafiltration 1.5 L as tolerated, no heparin and Procrit with 10,000 units during dialysis intravenously. Patient will be transfused during dialysis. Patient is currently being monitored throughout dialysis treatment. Temporary dialysis catheter was removed last week. Catheter tip was positive for MSSA. Patient currently on vancomycin and meropenem. Vancomycin trough level of 21.6, pharmacy following. PermCath scheduled to be placed today. (2) Decubitus ulcer of sacral region, unstageable Is this a current diagnosis for this admission?: Yes Plan: Status post surgical debridement couple of times. (3) Hypocalcemia Is this a current diagnosis for this admission?: Yes Plan: Currently on calcitriol , and increased dose of vitamin D. Now within normal limits. (4) Anemia Qualifiers: Anemia type: iron deficiency Is this a current diagnosis for this admission?: Yes Plan: Acute blood loss after sacral decubitus debridement last 04/06/2020. Currently on Retacrit during dialysis. (5) Atrial fibrillation Qualifiers: Atrial fibrillation type: persistent (not longstanding) Qualified Code(s): I48.19 - Other persistent atrial fibrillation; I48.1 - Persistent atrial fibrillation Is this a current diagnosis for this admission?: Yes Plan: Previously on diltiazem drip. Now on IV digoxin. (6) Hypoalbuminemia Is this a current diagnosis for this admission?: Yes Plan: Chronic and persistent. (7) Hyponatremia Is this a current diagnosis for this admission?: Yes Plan: Mild and stable.. (8) MRSA pneumonia Qualifiers: Laterality: bilateral Lung location: unspecified part of lung Qualified Code(s): J15.212 - Pneumonia due to Methicillin resistant Staphylococcus aureus Is this a current diagnosis for this admission?: Yes Plan: Completed treatment with cefepime and doxycycline. (9) Gram negative sepsis Is this a current diagnosis for this admission?: Yes Plan: Resolved. 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 (13) COVID-19 virus infection Is this a current diagnosis for this admission?: Yes Plan: Finally tested Covid negative on 03/30/2020. (14) Acute respiratory failure due to COVID-19 Is this a current diagnosis for this admission?: Yes Plan: Per knockdown man. On trach collar now. - Time Time with patient: 15-25 minutes
--- NOTE | 2020-04-08 16:46 | RADIOLOGY REPORT (SQ) ---
EXAM DESCRIPTION: FLUORO/CV PLACEMENT IMAGES COMPLETED DATE/TIME: 04/08/2020 4:34 pm REASON FOR STUDY: PERM A CATH PLACEMENT COMPARISON: None. FLUOROSCOPY TIME: 1.1 minutes Spot images saved to PACS. TECHNIQUE: Intra-operative images acquired during surgical procedure to evaluate progress. NUMBER OF IMAGES: 2 LIMITATIONS: None. FINDINGS: Fluoroscopy was provided for intraoperative procedure. Please refer to the operative repo rt for further discussion. IMPRESSION: IMAGE(S) OBTAINED DURING PROCEDURE. COMMENT: Quality ID [id number]: Final reports for procedures using fluoroscopy that document radiation exp osure indices, or exposure time and number of fluorographic images (if radiation exposure indices are not available) Please consult full operative report of the attending physician for description of the procedure. TECHNICAL DOCUMENTATION: JOB ID: [id number] 2010 [employer]- All Rights Reserved Reading location - IP/workstation name: [email or web address]
[2020-04-08] MEDS: VANCOMYCIN HCL 500 MG in DEXTROSE 5%-WATER 100 ML IV SCH (19:37)
[2020-04-08] MEDS ORDERED: LABETALOL HCL INJ 20 MG/4 ML DISP.SYRIN IV ONE (21:30)
--- NOTE | 2020-04-08 22:29 | Operative Report ---
Nonrecallable Operative Report DATE OF SURGERY: 04/08/20 PREOPERATIVE DIAGNOSIS: 1. Renal failure. 2. Large sacral decubitus, requiring fecal diversion. 3. Inanition POSTOPERATIVE DIAGNOSIS: Same as above OPERATION: 1. Ultrasound-guided central venous puncture. 2. Right permacath placement. 3. Loop sigmoid diverting colostomy. 4. Percutaneous endoscopic gastrostomy SURGEON: SWATI GUILLEN ANESTHESIA: GA TISSUE REMOVED OR ALTERED: None COMPLICATIONS: None apparent ESTIMATED BLOOD LOSS: Minimal PROCEDURE: Drains/implants: #1 right IJ permacath. 2. Percutaneous endoscopic gastrostomy, 20 [place]. Procedure in detail: After informed consent was obtained, the patient was brought to the operating room and laid in the supine position. The area of the neck and chest were prepped and draped in a normal sterile fashion. An ultrasound was used to identify the right internal jugular vein. It was comp ressible with normal flow. The patient was placed into slight Trendelenburg positioning. The right internal jugular vein was then cannulated using the supplied access needle. Dark venous, nonpulsatile blood was returned in the syringe. The wire was inserted into the lumen of the vein easily. The wire was confirmed to be within the lumen of the vein using the ultrasound as well as fluoroscopy. Once this was confirmed, picture documentation was saved and placed on the chart. Next, the permacath was tunneled from a separate stab incision on the right chest wall, up to the needle insertion site. The dilator and breakaway sheath were then inserted over the wire. This was done under direct fluoroscopic guidance. The wire and dilator were removed, leaving the breakaway sheath within the superior vena cava. The catheter was then placed into the sheath. The sheath was cracked and pulled away, leaving the catheter within the superior vena cava. The catheter was then aspirated and flushed easily. It was then blocked with heparinized saline. The catheter was then sutured to the skin using 0 Prolene suture. The skin overlying the needle insertion site was closed using 4-0 Vicryl Rapide suture. Dressings were then placed, and this portion of the procedure was concluded. Attention was then turned to creation of the diverting colostomy. The patient was placed in a supine position again. The area of the abdomen was prepped and draped. An incision was created in the left lower quadrant midway between the umbilicus and ASIS. Dissection was carried down to the fascia. A cruciate incision was created in the fascia of the anterior abdominal wall. The rectus muscle was spread, and the posterior fascia was divided (also in cruciate fashion). The sigmoid colon was then easily identified. It was retracted up into the wound. This was done using blunt finger dissection. Once the sigmoid colon was brought into the wound, a 20 [place] Ryna catheter was used as a strut underneath. This was sutured to the skin with 0 Vicryl suture. Next, the loop colostomy was opened. The colostomy was matured in Jyoti fashion using 3-0 Vicryl suture circumferentially. Once this was completed, an ostomy appliance was applied, and this portion of the procedure was concluded. Next attention was turned to placement of the percutaneous endoscopic gastrostomy. The flexible gastroscope was inserted into the oropharynx. It was passed down the oropharynx, and into the stomach. The stomach was insufflated with air. A suitable place for gastrostomy was identified on the abdominal wall. The area was chosen using transillumination as well as one-to-one ballottement. After this was completed, a needle was inserted percutaneously through the abdominal wall, and into the lumen of the stomach. This was confirmed with endoscopy. A wire was placed through the needle, and grasped with a snare. The snare was then pulled out through the mouth. The PEG tube was attached to the wire, and pulled down the esophagus and through the anterior abdominal wall. The scope was then reinserted into the stomach. The inner bumper was found to lie flush with the mucosa of the stomach. The tube was found to lie at approximately 4 cm at the skin. The external bumper was placed, the tube was assembled, and the procedure was concluded. All sponge, instrument, and needle counts were correct x2. Condition: Critical in ICU.
[2020-04-09] MEDS: MEROPENEM 1 GM in NORMAL SALINE 50 ML IV SCH ×3 (02:09→18:19)
[2020-04-09] MEDS: LEVALBUTEROL HCL NEB 1.25 MG/3 ML AMPUL NEB SCH ×4 (02:33→20:40)
[2020-04-09 04:47] LABS: ARTERIAL BLOOD BASE EXCESS 2.1 mmol/L; ARTERIAL BLOOD FIO2 35%; ARTERIAL BLOOD H2CO3 1.22 mmol/L (1.05-1.35); ARTERIAL BLOOD HCO3 26.5 mmol/L (20-24); ARTERIAL BLOOD O2 SATURATION 97.8 % (94-98); ARTERIAL BLOOD PCO2 40.4 mmHg (35-45); ARTERIAL BLOOD PH 7.44 (7.35-7.45); ARTERIAL BLOOD PO2 100.4 mmHg (80-100); ARTERIAL BLOOD TOTAL CO2 27.8 mmol/L (23-27)
--- NOTE | 2020-04-09 08:45 | RADIOLOGY REPORT (SQ) ---
EXAM DESCRIPTION: CHEST SINGLE VIEW IMAGES COMPLETED DATE/TIME: 04/09/2020 7:09 am REASON FOR STUDY: vent COMPARISON: 04/08/2020. EXAM PARAMETERS: NUMBER OF VIEWS: One view. TECHNIQUE: Single frontal radiographic view of the chest acquired. RADIATION DOSE: NA LIMITATIONS: None. FINDINGS: LUNGS AND PLEURA: Bilateral airspace disease primarily in the lower lobes. No pneumothora x. MEDIASTINUM AND HILAR STRUCTURES: No masses. Contour normal. HEART AND VASCULAR STRUCTURES: Heart normal in size. Normal vasculature. BONES: No acute findings. HARDWARE: Multi lumen catheter, tip at the cavoatrial junction. Stable tracheostomy tube. Sternotom y wires, atrial clip, and cardiac recorder. OTHER: No other significant finding. IMPRESSION: INTERVAL PLACEMENT OF A MULTI LUMEN CATHETER. OTHERWISE NO SIGNIFICANT INTERVAL CHANGE. TECHNICAL DOCUMENTATION: JOB ID: [id number] 2010 [email or web address]- All Rights Reserved Reading location - IP/workstation name: [email or web address]
--- NOTE | 2020-04-09 08:55 | PDOC CRITICAL CARE PROG REPORT ---
General Date:: 04/09/20 Resuscitation Status: Full Code Events in the past 12 to 24 Hours:: Pt had diverting colostomy, perma-cath and PEG 04/08. Review of systems relevant to events:: GI, neurologic, renal Reason for ICU Addmission:: On vent post-op. - Medications: Medications reviewed and adjusted accordingly: Yes Vasopressors:: None Sedation:: None Physical Exam Vital Signs: Temp Pulse Resp BP Pulse Ox 98.4 F 110 H 21 H 135/63 H 99 04/09/20 07:57 04/09/20 07:57 04/09/20 07:57 04/09/20 07:57 04/09/20 07:57 Pulse Oximeter Nocturnal Start: 02/08/20 13:55 Freq: RTQ4 Status: Complete Protocol: Document 02/09/20 04:00 LRO (Rec: 02/09/20 05:38 LRO [id number]) Nocturnal Pulse Oximetry Equipment Usage Equipment in Use Oxygen Delivery Method (includes room Room Air air) O2 Sat by Pulse Oximetry (92-100) 95 Continuous SpO2 Machine # 2 Pulse Oximeter Nocturnal Start: 02/10/20 11:39 Freq: RTQ4 Status: Complete Protocol: Document 02/11/20 04:06 PMU (Rec: 02/11/20 05:06 PMU [email or web address]) Nocturnal Pulse Oximetry Equipment Usage Equipment in Use Oxygen Delivery Method (includes room Room Air air) O2 Sat by Pulse Oximetry (92-100) 93 Continuous SpO2 Machine # N2 Intake & Output 04/08/20 04/09/20 04/10/20 06:59 06:59 06:59 Intake Total 450 150 Output Total 120 2030 0 Balance 330 -1880 0 Weight 104.2 kg 100 kg Weight/Height Weight 100 kg Height 5 ft 9 in General appearance: PRESENT: no acute distress Head exam: PRESENT: atraumatic, normocephalic Eye exam: PRESENT: conjunctiva pink, EOMI, PERRLA. ABSENT: scleral icterus Ear exam: PRESENT: normal external ear exam Mouth exam: PRESENT: moist, tongue midline Neck exam: PRESENT: tracheostomy, other - Tunneled perma-cath Respiratory exam: PRESENT: clear to auscultation kevyn. ABSENT: rales, rhonchi, wheezes Cardiovascular exam: PRESENT: tachycardia GI/Abdominal exam: PRESENT: normal bowel sounds, other - Peg site clean. Colostomy functioning. Rectal exam: PRESENT: deferred Extremities exam: PRESENT: full ROM, other - Heel protectors.. ABSENT: calf tenderness, clubbing, pedal edema Neurological exam: PRESENT: alert, awake, CN II-XII grossly intact, other - Profoundly weak. Skin exam: PRESENT: other - Large sacral decubitus. Tubes/Lines: PRESENT: Dialysis catheter, Peg Tube, Other - Tracheotomy Laboratory/Radiographs Laboratory Results: 04/08/20 07:55 04/08/20 07:00 04/09/20 03:34 Carbonic Acid 1.22 HCO3/H2CO3 Ratio 21:1 ABG pH 7.44 ABG pCO2 40.4 ABG pO2 100.4 H ABG HCO3 26.5 H ABG O2 Saturation 97.8 ABG Base Excess 2.1 FiO2 35% 02/08/20 02/08/20 02/21/20 09:49 13:11 04:50 Troponin I 0.160 0.155 NT-Pro-B Natriuret Pep 5540 H 10779 H 02/26/20 03/09/20 03/20/20 05:35 04:00 06:10 Troponin I NT-Pro-B Natriuret Pep 28674 H 84029 H 78308 H Impressions: Hip/Pelvis X-Ray 02/08/20 00:00 IMPRESSION: No acute fracture. Severe degenerative changes of the left hip. Knee X-Ray 02/08/20 00:00 IMPRESSION: NEGATIVE STUDY OF THE RIGHT KNEE. NO RADIOGRAPHIC EVIDENCE OF ACUTE INJURY. Renal Ultrasound 02/21/20 00:00 IMPRESSION: Increased echogenicity of the renal parenchyma suggestive of underlying chronic medical renal disease. There is no hydronephrosis. There is a Ryan catheter within the urinary bladder. Head CT 03/08/20 08:56 IMPRESSION: MILD CHRONIC CHANGES OF ATROPHY AND MICROVASCULAR ISCHEMIA. NO ACUTE PROCESS. EVIDENCE OF ACUTE STROKE: NO. Chest CT 03/08/20 10:12 IMPRESSION: Extensive bilateral infiltrates. No pneumothorax. KUB X-Ray 04/01/20 00:00 IMPRESSION: NG tube as described. Guidance Fluoroscopy 04/08/20 00:00 IMPRESSION: IMAGE(S) OBTAINED DURING PROCEDURE. Chest X-Ray 04/09/20 05:00 IMPRESSION: INTERVAL PLACEMENT OF A MULTI LUMEN CATHETER. OTHERWISE NO SIGNIFICANT INTERVAL CHANGE. All labs, radiographs, diagnostic studies and EKGs were personally reviewed: Yes Assessment and Plan - Diagnosis (1) Polyneuropathy associated with critical illness Is this a current diagnosis for this admission?: Yes Plan: Still an active issue. No change. Should be ready for LTAC Monday. (2) Osteomyelitis Qualifiers: Osteomyelitis type: other chronic Osteomyelitis location: other site Qualified Code(s): M86.68 - Other chronic osteomyelitis, other site Is this a current diagnosis for this admission?: Yes Plan: Continue dressing changes and Santyl. (3) CKD (chronic kidney disease) stage 5, GFR less than 15 ml/min Is this a current diagnosis for this admission?: Yes Plan: Now has perma-cath for HD. Anuric. (4) Acute on chronic diastolic CHF (congestive heart failure) Is this a current diagnosis for this admission?: Yes Plan: Inactive. (5) Coronary artery disease Qualifiers: Coronary Disease-Associated Artery/Lesion type: unspecified vessel or lesion type [place] vs. transplanted heart: [place] heart Associated angina: with unspecified angina Qualified Code(s): I25.119 - Atherosclerotic heart disease of [place] coronary artery with unspecified angina pectoris Is this a current diagnosis for this admission?: Yes Plan: Inactive. Tolerated surgery well. (6) Obesity (BMI 30-39.9) Is this a current diagnosis for this admission?: Yes Plan: Chronic. (7) Anemia Qualifiers: Anemia type: iron deficiency Is this a current diagnosis for this admission?: Yes Plan: Hgb 9.1 post-op (8) HTN (hypertension) Qualifiers: Hypertension type: essential hypertension Qualified Code(s): I10 - Essential (primary) hypertension Is this a current diagnosis for this admission?: Yes Plan: Controlled Plan Summary: Start using PEG today. Hope to get to LTAC this week. Critical Time Critical Time (minutes): 40 Level of Care: ICU Anticipated discharge: Other Anticipated DC Timeframe: within 48 hours -: 1. The care of a critical patient is a dynamic process. This note is a computer help desk representative synopsis but static in nature. The timeframe for treatments given in order is not necessarily the actual time these treatments may have been done. 2. This patient requires critical care secondary to ongoing requirements for therapy not offered or safe outside the critical care environment. Transfer to a lower level of care will result in altered life or limb morbidity and mortality. 3. Multidisciplinary rounds completed. 4. ABCDE bundle addressed.
[2020-04-09] MEDS: LABETALOL HCL 200 MG TABLET NG SCH ×2 (10:21→21:32)
[2020-04-09] MEDS: HYDRALAZINE HCL 25 MG TABLET NG SCH ×2 (10:22→21:32)
[2020-04-09] MEDS: PANTOPRAZOLE SODIUM 40 MG VIAL IV SCH (10:22)
[2020-04-09] MEDS: CALCITRIOL 1 MCG/ML ORAL SOLN 15 ML NG SCH (10:25)
[2020-04-09] MEDS: AMINO AC/PROTEIN HYDR/WHEY PRO 11 GM/45 ML PKT NG SCH ×4 (11:15→21:32)
[2020-04-09] MEDS: CITALOPRAM HYDROBROMIDE 20 MG TABLET NG SCH (11:15)
[2020-04-09] MEDS: CHOLECALCIFEROL (D3) 1,000 UNIT (25 MCG) TABLET NG SCH ×3 (11:16→18:17)
[2020-04-09] MEDS: COLLAGENASE CLOSTRIDIUM HIST. OINT 30 GM TOP SCH (11:18)
[2020-04-09] MEDS: NYSTATIN TOPICAL POWDER 15 GM TP SCH ×2 (18:16→21:32)
[2020-04-09 18:22] LABS: ABSOLUTE EOSINOPHILS # (AUTO) 0.2 10^3/uL (0.0-0.6); ABSOLUTE LYMPHOCYTES (AUTO) 1.2 10^3/uL (0.5-4.7); ABSOLUTE MONOCYTES (AUTO) 0.7 10^3/uL (0.1-1.4); BASOPHILS % (AUTO) 0.4 % (0-2); EOSINOPHILS % (AUTO) 2.6 % (0-6); HEMATOCRIT 28.3 % (37.9-51.0); HEMOGLOBIN 9.3 g/dL (13.5-17.0); LYMPHOCYTES % (AUTO) 13.4 % (13-45); MEAN CORPUSCULAR HEMOGLOBIN 29.8 pg (27.0-33.4); MEAN CORPUSCULAR HGB CONC 32.9 g/dL (32.0-36.0); MEAN CORPUSCULAR VOLUME 91 fl (80-97); MONOCYTES % (AUTO) 8.1 % (3-13); PLATELET COUNT 210 10^3/uL (150-450); RED BLOOD COUNT 3.11 10^6/uL (4.35-5.55); RED CELL DISTRIBUTION WIDTH 19.2 % (11.5-14.0); SEGMENTED NEUTROPHILS % (AUTO) 75.5 % (42-78); TOTAL CELLS COUNTED % (AUTO) 100 %; WHITE BLOOD COUNT 9.2 10^3/uL (4.0-10.5)
[2020-04-09 18:38] LABS: ALBUMIN 2.2 g/dL (3.5-5.0); ALKALINE PHOSPHATASE 87 U/L (38-126); ANION GAP 8 (5-19); ASPARTATE AMINO TRANSFERASE 29 U/L (17-59); BILIRUBIN,DIRECT 0.7 mg/dL (0.0-0.4); BILIRUBIN,TOTAL 0.9 mg/dL (0.2-1.3); BLOOD UREA NITROGEN 44 mg/dL (7-20); CALCIUM 7.8 mg/dL (8.4-10.2); CARBON DIOXIDE 25 mmol/L (22-30); CHLORIDE 103 mmol/L (98-107); GLUCOSE 80 mg/dL (75-110); POTASSIUM 3.6 mmol/L (3.6-5.0); TOTAL PROTEIN 4.9 g/dL (6.3-8.2)
[2020-04-10] MEDS: HYDROMORPHONE HCL INJ/PF 2 MG/ML AMPULE IV PRN (01:02)
[2020-04-10] MEDS: MEROPENEM 1 GM in NORMAL SALINE 50 ML IV SCH ×3 (01:20→18:25)
[2020-04-10] MEDS: LEVALBUTEROL HCL NEB 1.25 MG/3 ML AMPUL NEB SCH (02:10)
[2020-04-10] MEDS ORDERED: RINGERS SOLUTION,LACTATED 500 ML IV ONE (02:29)
[2020-04-10] MEDS: ALBUMIN HUMAN 12.5 GM/50 ML RTUINJ IV SCH ×3 (02:50→03:34)
[2020-04-10 04:07] LABS: ARTERIAL BLOOD BASE EXCESS -0.9 mmol/L; ARTERIAL BLOOD FIO2 35%; ARTERIAL BLOOD H2CO3 1.12 mmol/L (1.05-1.35); ARTERIAL BLOOD HCO3 23.4 mmol/L (20-24); ARTERIAL BLOOD O2 SATURATION 97.4 % (94-98); ARTERIAL BLOOD PCO2 37.2 mmHg (35-45); ARTERIAL BLOOD PH 7.42 (7.35-7.45); ARTERIAL BLOOD PO2 94.9 mmHg (80-100); ARTERIAL BLOOD TOTAL CO2 24.5 mmol/L (23-27)
[2020-04-10] MEDS ORDERED: EPOETIN ALFA-EPBX 10,000 UNIT in SYRINGE, DISPOSABLE, 1 EACH IV PRN (05:00)
[2020-04-10] MEDS ORDERED: HEPARIN SOD (PORCINE) 1,000 UNIT/ML 10 ML VIAL IV PRN (05:00)
[2020-04-10] MEDS ORDERED: NORMAL SALINE 1000 ML 1,000 ML IV PRN (05:00)
--- NOTE | 2020-04-10 06:46 | PDOC PROGRESS REPORT ---
Subjective Progress Note for:: 04/10/20 Subjective:: Post trach, diverting sigmoid colostomy and central line placement for dialysis Reason For Visit: WEAKNESS,ELEVATED TROPONIN,CHF Physical Exam Vital Signs: Temp Pulse Resp BP Pulse Ox 98.4 F 110 H 18 156/64 H 98 04/10/20 04:00 04/10/20 02:10 04/10/20 04:00 04/10/20 03:50 04/10/20 04:35 Pulse Oximeter Nocturnal Start: 02/08/20 13:55 Freq: RTQ4 Status: Complete Protocol: Document 02/09/20 04:00 LRO (Rec: 02/09/20 05:38 LRO [email or web address]) Nocturnal Pulse Oximetry Equipment Usage Equipment in Use Oxygen Delivery Method (includes room Room Air air) O2 Sat by Pulse Oximetry (92-100) 95 Continuous SpO2 Machine # 2 Pulse Oximeter Nocturnal Start: 02/10/20 11:39 Freq: RTQ4 Status: Complete Protocol: Document 02/11/20 04:06 PMU (Rec: 02/11/20 05:06 PMU [email or web address]) Nocturnal Pulse Oximetry Equipment Usage Equipment in Use Oxygen Delivery Method (includes room Room Air air) O2 Sat by Pulse Oximetry (92-100) 93 Continuous SpO2 Machine # N2 Intake & Output 04/08/20 04/09/20 04/10/20 06:59 06:59 06:59 Intake Total 450 150 737 Output Total 120 2030 250 Balance 330 -1880 487 Weight 104.2 kg 100 kg 100.3 kg Exam: Patient still on the vent, colostomy viable and draining, PEG tube tolerating feedings, sacral decub large but no areas of need for debridement. Results Laboratory Results: 04/09/20 18:00 04/09/20 18:00 04/09/20 04/09/20 04/10/20 18:00 18:00 03:55 WBC 9.2 RBC 3.11 L Hgb 9.3 L Hct 28.3 L MCV 91 MCH 29.8 MCHC 32.9 RDW 19.2 H Plt Count 210 Seg Neutrophils % 75.5 Carbonic Acid 1.12 HCO3/H2CO3 Ratio 20:1 ABG pH 7.42 ABG pCO2 37.2 ABG pO2 94.9 ABG HCO3 23.4 ABG O2 Saturation 97.4 ABG Base Excess -0.9 FiO2 35% Sodium 135.8 L Potassium 3.6 Chloride 103 Carbon Dioxide 25 Anion Gap 8 BUN 44 H Creatinine 1.46 H Est GFR ( Amer) 57 L Glucose 80 Calcium 7.8 L Total Bilirubin 0.9 AST 29 Alkaline Phosphatase 87 Total Protein 4.9 L Albumin 2.2 L 02/08/20 02/08/20 02/21/20 09:49 13:11 04:50 Troponin I 0.160 0.155 NT-Pro-B Natriuret Pep 5540 H 16276 H 02/26/20 03/09/20 03/20/20 05:35 04:00 06:10 Troponin I NT-Pro-B Natriuret Pep 71801 H 99273 H 66726 H Impressions: Hip/Pelvis X-Ray 02/08/20 00:00 IMPRESSION: No acute fracture. Severe degenerative changes of the left hip. Knee X-Ray 02/08/20 00:00 IMPRESSION: NEGATIVE STUDY OF THE RIGHT KNEE. NO RADIOGRAPHIC EVIDENCE OF ACUTE INJURY. Renal Ultrasound 02/21/20 00:00 IMPRESSION: Increased echogenicity of the renal parenchyma suggestive of underlying chronic medical renal disease. There is no hydronephrosis. There is a Ryan catheter within the urinary bladder. Head CT 03/08/20 08:56 IMPRESSION: MILD CHRONIC CHANGES OF ATROPHY AND MICROVASCULAR ISCHEMIA. NO ACUTE PROCESS. EVIDENCE OF ACUTE STROKE: NO. Chest CT 03/08/20 10:12 IMPRESSION: Extensive bilateral infiltrates. No pneumothorax. KUB X-Ray 04/01/20 00:00 IMPRESSION: NG tube as described. Guidance Fluoroscopy 04/08/20 00:00 IMPRESSION: IMAGE(S) OBTAINED DURING PROCEDURE. Assessment & Plan - Diagnosis (1) Acute on chronic combined systolic (congestive) and diastolic (congestive) heart failure Is this a current diagnosis for this admission?: Yes (2) Decubitus ulcer of sacral region, unstageable Is this a current diagnosis for this admission?: Yes (3) HTN (hypertension) Qualifiers: Hypertension type: essential hypertension Qualified Code(s): I10 - Essential (primary) hypertension Is this a current diagnosis for this admission?: Yes (4) Hyperglycemia Is this a current diagnosis for this admission?: Yes (5) Osteomyelitis Qualifiers: Osteomyelitis type: other chronic Osteomyelitis location: other site Qualified Code(s): M86.68 - Other chronic osteomyelitis, other site Is this a current diagnosis for this admission?: Yes (7) Acute respiratory failure with hypoxia Is this a current diagnosis for this admission?: Yes - Time Critical Time spent with patient: 15-24 minutes Anticipated Discharge Disposition: [facility] Facility Anticipated Discharge Timeframe: 1 week - Inpatient Certification Medical Necessity: Need Close Monitoring Due to Risk of Patient Decompensation, Need For Continuous Telemetry Monitoring, Need for IV Antibiotics - Plan Summary Plan Summary: 70-year-old postop day #2 for trach, diverting loop sigmoid colostomy, PEG tube placement, and dialysis catheter placement. The colostomy is viable and functioning, PEG tube tolerating feedings well today, has a large sacral decubitus with some dark discoloration is over the sacral bones but no areas that can be debrided at this time. May need wound VAC for the sacral decubitus when there is less drainage from the rectum which still has some mucoid secretions. Continue with tube feedings. 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
[2020-04-10 07:34] LABS: ABSOLUTE BASOPHILS # (AUTO) 0.1 10^3/uL (0.0-0.2); ABSOLUTE EOSINOPHILS # (AUTO) 0.4 10^3/uL (0.0-0.6); ABSOLUTE LYMPHOCYTES (AUTO) 1.2 10^3/uL (0.5-4.7); ABSOLUTE MONOCYTES (AUTO) 0.8 10^3/uL (0.1-1.4); ABSOLUTE NEUT (AUTO) 7.5 10^3/uL (1.7-8.2); BASOPHILS % (AUTO) 0.5 % (0-2); EOSINOPHILS % (AUTO) 4.2 % (0-6); HEMATOCRIT 26.1 % (37.9-51.0); HEMOGLOBIN 8.8 g/dL (13.5-17.0); LYMPHOCYTES % (AUTO) 11.9 % (13-45); MEAN CORPUSCULAR HEMOGLOBIN 30.3 pg (27.0-33.4); MEAN CORPUSCULAR HGB CONC 33.6 g/dL (32.0-36.0); MEAN CORPUSCULAR VOLUME 90 fl (80-97); MONOCYTES % (AUTO) 8.4 % (3-13); PLATELET COUNT 238 10^3/uL (150-450); RED CELL DISTRIBUTION WIDTH 18.8 % (11.5-14.0); TOTAL CELLS COUNTED % (AUTO) 100 %
[2020-04-10 07:48] LABS: ALBUMIN 2.1 g/dL (3.5-5.0); ALKALINE PHOSPHATASE 98 U/L (38-126); ANION GAP 8 (5-19); ASPARTATE AMINO TRANSFERASE 28 U/L (17-59); BILIRUBIN,DIRECT 0.7 mg/dL (0.0-0.4); BILIRUBIN,TOTAL 0.8 mg/dL (0.2-1.3); BLOOD UREA NITROGEN 48 mg/dL (7-20); CALCIUM 7.7 mg/dL (8.4-10.2); CARBON DIOXIDE 26 mmol/L (22-30); CHLORIDE 104 mmol/L (98-107); GLUCOSE 92 mg/dL (75-110); POTASSIUM 3.5 mmol/L (3.6-5.0); TOTAL PROTEIN 4.8 g/dL (6.3-8.2)
[2020-04-10 07:50] LABS: VANCOMYCIN,TROUGH 18.9 ug/mL (5.0-20.0)
--- NOTE | 2020-04-10 08:20 | RADIOLOGY REPORT (SQ) ---
EXAM DESCRIPTION: CHEST SINGLE VIEW IMAGES COMPLETED DATE/TIME: 04/10/2020 7:04 am REASON FOR STUDY: vent COMPARISON: 04/09/2020 EXAM PARAMETERS: NUMBER OF VIEWS: One view. TECHNIQUE: Single frontal radiographic view of the chest acquired. RADIATION DOSE: NA LIMITATIONS: None. FINDINGS: LUNGS AND PLEURA: Grossly stable patchy bibasilar opacities and likely trace bilateral eff usions. No pneumothorax. MEDIASTINUM AND HILAR STRUCTURES: Stable. HEART AND VASCULAR STRUCTURES: Enlarged, stable. BONES: No acute findings. Sternotomy changes. HARDWARE: Tracheostomy tube tip overlies proximal thoracic trachea. Unchanged right internal jugular hemodialysis catheter with tip at cavoatrial junction. Sternotomy and CABG hardware. OTHER: No other significant finding. IMPRESSION: Stable chest with patchy bibasilar opacities and likely trace effusions. TECHNICAL DOCUMENTATION: JOB ID: [id number] 2010 [employer]- All Rights Reserved Reading location - IP/workstation name: [email or web address]
--- NOTE | 2020-04-10 08:47 | PDOC TRANSFER SUMMARY ---
Impression - Admit/DC Date/PCP Admission Date/Primary Care Provider: 02/08/20 13:[facility] Discharge Date: 04/10/20 - Discharge Diagnosis (1) Polyneuropathy associated with critical illness Is this a current diagnosis for this admission?: Yes (2) Osteomyelitis Is this a current diagnosis for this admission?: Yes (3) CKD (chronic kidney disease) stage 5, GFR less than 15 ml/min Is this a current diagnosis for this admission?: Yes (4) Acute on chronic diastolic CHF (congestive heart failure) Is this a current diagnosis for this admission?: Yes (5) Coronary artery disease Is this a current diagnosis for this admission?: Yes (6) Obesity (BMI 30-39.9) Is this a current diagnosis for this admission?: Yes (7) Anemia Is this a current diagnosis for this admission?: Yes (8) HTN (hypertension) Is this a current diagnosis for this admission?: Yes - Assessment Summary: 40 minutes spent caring for critically ill patient. Critical care time involved bedside assessment/evaluation and bedside treatment - Additional Information Resuscitation Status: Full Code Discharge Diet: Cardiac, Tube Feeding (Comments) Discharge Activity: Activity As Tolerated, Balance Activity w/Rest, Weigh Daily Referrals: [facility] [[facility]] - Follow up as needed Home Medications: Aspirin [Aspirin 81 mg Chewable Tablet] 81 mg PO DAILY 01/29/20 Clopidogrel Bisulfate [Plavix 75 mg Tablet] 75 mg PO DAILY #30 tablet 02/03/20 Metoprolol Succinate [Toprol Xl 50 mg Tab.sr] 50 mg PO DAILY #30 tab.sr.24h 02/03/20 Sacubitril/Valsartan [Entresto 49 mg/51 mg Tablet] 1 tab PO Q12 #60 tablet 02/03/20 History of Present Illiness History of Present Illness: This patient is a 70 yo man originally admitted to the hospital 02/08/20 and the ICU 02/12/20. He was COVID-19 positive then and did not turn negative until 03/30/20. He has been an inpatient since 02/07. He is on dialysis M/W/F and has severe polyneuropathy of critical illness. He is so weak he can barely move the fingers of his R hand. He has a large sacral decubitus ulcer down to the sacrum receiving Santyl dressings and antibiotics. He has a tracheostomy but had been on trach collar before he went to the OR on 02/07 for a diverting colostomy for his decubitus, a permacath and a PEG. He is awake alert and needs shelter acute care. Hospital Course Hospital Course: His course has been wes and prolonged. He was first in tubated 02/11 and did not come off the vent until after the trach. Back on for the OR yesterday. He has needed the vent at night many times, had been on collar 24 hours but frequesntly still needs the trach. He has become progressively weaker and needs extensive PT. EEG shows marked cerebral dysfunction but many etiologies possible. CT of head 03/08 shows age related cerebral atrophy, no stroke. He had UGI bleeding at the outset and an EGD showed some inflammation, no active bleeding and no recurrence. An echocariogram 02/09 shows a severly depressed EF at 25-30% from previous CAD and MA. He has also had CHF before and on this admission but not since earlier in January/Feb. He has needed periodic debridements of his sacrum. His needs right now include coming off the vent permanently. Extensive PT for his weakness if he can recover. Three times a week HD. Diverting colostomy for his sacrum which needs mostly local care and tube feeds with Nepro 1.8 at 40cc/hr continuous, BID prosource. Physical Exam Vital Signs: Temp Pulse Resp BP Pulse Ox 98.4 F 110 H 18 156/64 H 98 04/10/20 04:00 04/10/20 02:10 04/10/20 04:00 04/10/20 03:50 04/10/20 04:35 Pulse Oximeter Nocturnal Start: 02/08/20 13:55 Freq: RTQ4 Status: Complete Protocol: Document 02/09/20 04:00 LRO (Rec: 02/09/20 05:38 LRO [id number]) Nocturnal Pulse Oximetry Equipment Usage Equipment in Use Oxygen Delivery Method (includes room Room Air air) O2 Sat by Pulse Oximetry (92-100) 95 Continuous SpO2 Machine # 2 Pulse Oximeter Nocturnal Start: 02/10/20 11:39 Freq: RTQ4 Status: Complete Protocol: Document 02/11/20 04:06 PMU (Rec: 02/11/20 05:06 PMU [email or web address]) Nocturnal Pulse Oximetry Equipment Usage Equipment in Use Oxygen Delivery Method (includes room Room Air air) O2 Sat by Pulse Oximetry (92-100) 93 Continuous SpO2 Machine # N2 Intake & Output 04/09/20 04/10/20 04/11/20 06:59 06:59 06:59 Intake Total 150 737 Output Total 2029 250 Balance -1880 487 Weight 100 kg 100.3 kg General appearance: PRESENT: no acute distress, cooperative, obese Head exam: PRESENT: atraumatic, normocephalic Eye exam: PRESENT: conjunctiva pink, EOMI, PERRLA. ABSENT: scleral icterus Ear exam: PRESENT: normal external ear exam Mouth exam: PRESENT: moist, tongue midline Neck exam: PRESENT: tracheostomy, other - R subclavian Perma-cath. Respiratory exam: PRESENT: clear to auscultation kevyn, decreased breath sounds. ABSENT: rales, rhonchi, wheezes Cardiovascular exam: PRESENT: RRR. ABSENT: diastolic murmur, rubs, systolic murmur GI/Abdominal exam: PRESENT: normal bowel sounds, soft, other - PEG tube. ABSENT: distended, guarding, mass, organolmegaly, rebound, tenderness Rectal exam: PRESENT: deferred Extremities exam: PRESENT: other - Heel ulcers nearly gone. Neurological exam: PRESENT: altered, awake, CN II-XII grossly intact, other - Too weak to move Psychiatric exam: PRESENT: appropriate affect, normal mood. ABSENT: homicidal ideation, suicidal ideation Skin exam: PRESENT: normal color, other - Sacral ulcer-large. Results Laboratory Results: WBC 10.0 10^3/uL (4.0-10.5) 04/10/20 07:00 RBC 2.90 10^6/uL (4.35-5.55) L 04/10/20 07:00 Hgb 8.8 g/dL (13.5-17.0) L 04/10/20 07:00 Hct 26.1 % (37.9-51.0) L 04/10/20 07:00 MCV 90 fl (80-97) 04/10/20 07:00 MCH 30.3 pg (27.0-33.4) 04/10/20 07:00 MCHC 33.6 g/dL (32.0-36.0) 04/10/20 07:00 RDW 18.8 % (11.5-14.0) H 04/10/20 07:00 Plt Count 238 10^3/uL (150-450) 04/10/20 07:00 Lymph % (Auto) 11.9 % (13-45) L 04/10/20 07:00 Cochran % (Auto) 8.4 % (3-13) 04/10/20 07:00 Eos % (Auto) 4.2 % (0-6) 04/10/20 07:00 Baso % (Auto) 0.5 % (0-2) 04/10/20 07:00 Absolute Neuts (auto) 7.5 10^3/uL (1.7-8.2) 04/10/20 07:00 Absolute Lymphs (auto) 1.2 10^3/uL (0.5-4.7) 04/10/20 07:00 Absolute Monos (auto) 0.8 10^3/uL (0.1-1.4) 04/10/20 07:00 Absolute Eos (auto) 0.4 10^3/uL (0.0-0.6) 04/10/20 07:00 Absolute Basos (auto) 0.1 10^3/uL (0.0-0.2) 04/10/20 07:00 Total Counted 100 04/08/20 07:55 Seg Neutrophils % 75.0 % (42-78) 04/10/20 07:00 Seg Neuts % (Manual) 80 % (42-78) H 04/08/20 07:55 Band Neutrophils % 1 % (3-5) L 04/08/20 07:55 Lymphocytes % (Manual) 13 % (13-45) 04/08/20 07:55 Atypical Lymphs % 1 % (0) 03/11/20 05:00 Monocytes % (Manual) 4 % (3-13) 04/08/20 07:55 Eosinophils % (Manual) 2 % (0-6) 04/08/20 07:55 Basophils % (Manual) 0 % (0-2) 04/08/20 07:55 Metamyelocytes % 1 % (0-1) 03/15/20 07:30 Myelocytes % 3 % (0) H 03/15/20 07:30 Abs Neuts (Manual) 7.5 10^3/uL (1.7-8.2) 04/08/20 07:55 Abs Lymphs (Manual) 1.2 10^3/uL (0.5-4.7) 04/08/20 07:55 Abs Monocytes (Manual) 0.4 10^3/uL (0.1-1.4) 04/08/20 07:55 Absolute Eos (Manual) 0.2 10^3/uL (0.0-0.6) 04/08/20 07:55 Abs Basophils (Manual) 0.0 10^3/uL (0.0-0.2) 04/08/20 07:55 Nucleated RBCs 1 /100 WBC (0) 03/18/20 04:00 Hypersegmented Neuts PRESENT 02/29/20 04:40 Toxic Granulation 1+ 03/27/20 03:08 Toxic Vacuolation PRESENT 04/04/20 19:00 Platelet Estimate Cancelled 04/02/20 09:13 Clumped Platelets PRESENT 04/04/20 19:00 Large Platelets PRESENT 04/08/20 07:55 Platelet Comment ADEQUATE 04/08/20 07:55 Polychromasia SLIGHT 04/04/20 19:00 Hypochromasia 1+ 04/08/20 07:55 Poikilocytosis SLIGHT 03/27/20 03:08 Anisocytosis 2+ 04/08/20 07:55 Target Cells 1+ 03/20/20 06:10 Tear Drop Cells Not Reportable 04/04/20 19:00 Ovalocytes SLIGHT 04/04/20 19:00 Phoenix Cells SLIGHT 03/09/20 04:00 Acanthocytes (Spur) SLIGHT 02/28/20 04:10 Schistocytes SLIGHT 03/22/20 05:27 PT 15.2 SEC (11.4-15.4) 04/06/20 07:00 INR 1.18 04/06/20 07:00 INR (Anticoag Therapy) Cancelled 04/04/20 19:00 APTT 38.7 SEC (23.5-35.8) H 04/06/20 07:00 Fibrinogen 787 mg/dL (209-497) H 02/29/20 14:15 D-Dimer 1.53 ug/mL (0.00-0.50) H 02/16/20 06:50 Platelet Factor 4 45 IU/mL (.) 03/05/20 10:30 Carbonic Acid 1.12 mmol/L (1.05-1.35) 04/10/20 03:55 HCO3/H2CO3 Ratio 20:1 04/10/20 03:55 ABG pH 7.42 (7.35-7.45) 04/10/20 03:55 ABG pCO2 37.2 mmHg (35-45) 04/10/20 03:55 ABG pO2 94.9 mmHg (80-100) 04/10/20 03:55 ABG HCO3 23.4 mmol/L (20-24) 04/10/20 03:55 ABG Total CO2 24.5 mmol/L (23-27) 04/10/20 03:55 ABG O2 Saturation 97.4 % (94-98) 04/10/20 03:55 ABG Base Excess -0.9 mmol/L 04/10/20 03:55 VBG pH 7.41 (7.30-7.42) 02/10/20 16:42 VBG pCO2 31.0 mmHg (35-63) L 02/10/20 16:42 VBG HCO3 19.3 mmol/L (20-32) L 02/10/20 16:42 VBG Base Excess -3.9 mmol/L 02/10/20 16:42 FiO2 35% 04/10/20 03:55 Sodium 138.2 mmol/L (137-145) 04/10/20 07:00 Potassium 3.5 mmol/L (3.6-5.0) L 04/10/20 07:00 Chloride 104 mmol/L (98-107) 04/10/20 07:00 Carbon Dioxide 26 mmol/L (22-30) 04/10/20 07:00 Anion Gap 8 (5-19) 04/10/20 07:00 BUN 48 mg/dL (7-20) H 04/10/20 07:00 Creatinine 1.62 mg/dL (0.52-1.25) H 04/10/20 07:00 Est GFR ( Amer) 51 (>60) L 04/10/20 07:00 Est GFR (Non-Af Amer) Cancelled 04/02/20 09:13 Est GFR (MDRD) Non-Af 42 (>60) L 04/10/20 07:00 Glucose 92 mg/dL (75-110) 04/10/20 07:00 POC Glucose 89 mg/dL (70-110) 04/08/20 23:48 Lactic Acid 1.4 mmol/L (0.7-2.1) 02/16/20 06:50 Calcium 7.7 mg/dL (8.4-10.2) L 04/10/20 07:00 Ionized Calcium Tessa 1.12 mmol/L (1.14-1.30) L 04/06/20 07:00 Phosphorus 4.6 mg/dL (2.5-4.5) H 04/08/20 07:00 Magnesium 1.7 mg/dL (1.6-2.3) 04/08/20 07:00 Ferritin 646.00 ng/mL (17.9-464.0) H 02/16/20 06:50 Total Bilirubin 0.8 mg/dL (0.2-1.3) 04/10/20 07:00 Direct Bilirubin 0.7 mg/dL (0.0-0.4) H 04/10/20 07:00 Neonat Total Bilirubin Not Reportable 04/10/20 07:00 Neonat Direct Bilirubin Not Reportable 04/10/20 07:00 Neonat Indirect Bili Not Reportable 04/10/20 07:00 AST 28 U/L (17-59) 04/10/20 07:00 ALT 15 U/L (<50) 04/10/20 07:00 Alkaline Phosphatase 98 U/L (38-126) 04/10/20 07:00 Troponin I 0.155 ng/mL 02/08/20 13:11 C-Reactive Protein 59.7 mg/L (<10.0) H 02/16/20 06:50 NT-Pro-B Natriuret Pep 10792 pg/mL (<125) H 03/20/20 06:10 Total Protein 4.8 g/dL (6.3-8.2) L 04/10/20 07:00 Albumin 2.1 g/dL (3.5-5.0) L 04/10/20 07:00 Prealbumin 17.1 mg/dL (17.6-36.0) L 04/04/20 05:05 Triglycerides 89 mg/dL (<150) 03/08/20 03:00 Cholesterol 206.21 mg/dL (0-200) H 02/09/20 05:31 LDL Cholesterol Direct 129 mg/dL (<100) H 02/09/20 05:31 VLDL Cholesterol 17.0 mg/dL (10-31) 02/09/20 05:31 HDL Cholesterol 44 mg/dL (>40) 02/09/20 05:31 Lipase 117.6 U/L (23-300) 03/03/20 04:00 EGFR Cancelled 04/02/20 09:13 Vitamin D 25-Hydroxy < 12.8 ng/mL (14.7-68.3) L 03/31/20 04:20 Vit D 1,25-Dihydroxy 19.4 pg/mL (19.9-79.3) L 03/31/20 04:20 Procalcitonin 7.38 ng/mL (0.00-0.08) H 02/21/20 04:50 TSH 0.89 uIU/mL (0.47-4.68) 02/09/20 05:31 PTH Intact 657.7 pg/mL (10.0-65.0) H 02/18/20 03:50 Urine Color LEISA 04/08/20 04:00 Urine Appearance CLOUDY 04/08/20 04:00 Urine pH 5.0 (5.0-9.0) 04/08/20 04:00 Ur Specific Hamilton 1.025 04/08/20 04:00 Urine Protein >=500 mg/dL (NEGATIVE) H 04/08/20 04:00 Urine Glucose (UA) 50 mg/dL (NEGATIVE) H 04/08/20 04:00 Urine Ketones TRACE mg/dL (NEGATIVE) H 04/08/20 04:00 Urine Blood MODERATE (NEGATIVE) H 04/08/20 04:00 Urine Nitrite NEGATIVE (NEGATIVE) 04/08/20 04:00 Urine Bilirubin NEGATIVE (NEGATIVE) 04/08/20 04:00 Urine Urobilinogen 2.0 mg/dL (<2.0) H 04/08/20 04:00 Ur Leukocyte Esterase MODERATE (NEGATIVE) H 04/08/20 04:00 Urine WBC (Auto) 94 /HPF 04/08/20 04:00 U Hyaline Cast (Auto) 8 /LPF 03/13/20 05:35 Urine RBC (Auto) 47 /HPF 04/08/20 04:00 Urine Bacteria (Auto) 1+ /HPF 03/13/20 05:35 Urine WBC Clumps MOD /HPF 04/08/20 04:00 U Non-Squamous Epis Auto 4 /HPF 03/13/20 05:35 Squamous Epi Cells Auto 3 /HPF 04/08/20 04:00 Amorphous Sediment Auto TRACE /HPF 04/06/20 04:20 Urine Mucus (Auto) RARE /LPF 04/08/20 04:00 Urine Yeast (Budding) PRESENT /HPF 04/08/20 04:00 Urine Ascorbic Acid NEGATIVE (NEGATIVE) 04/08/20 04:00 Stool Occult Blood POSITIVE (NEGATIVE) 02/22/20 10:55 Stl C. Difficile GDH Ag NEGATIVE (NEGATIVE) 03/25/20 11:00 Stl C.difficile Tox A&B NEGATIVE (NEGATIVE) 03/25/20 11:00 Time Trough Drawn 0700 04/10/20 07:00 Vancomycin Trough 18.9 ug/mL (5.0-20.0) 04/10/20 07:00 Digoxin 1.56 ng/mL (0.8-2.0) 04/04/20 05:05 Heparin-induced Plt Ab 0.045 OD (0.000-0.40) 04/03/20 14:57 COVID-19 Source See comment 03/30/20 18:45 COVID-19 (TEJINDER) Not Detected (Not Detect) 03/30/20 18:45 Hepatitis A IgM Ab Negative (Negative) 02/18/20 11:35 Hep Bs Antigen Negative (Negative) 02/18/20 11:35 Hep B Core IgM Ab Negative (Negative) 02/18/20 11:35 Hepatitis C Antibody <0.1 s/co ratio (0.0-0.9) 02/18/20 11:35 Slides for Path Review Cancelled 04/02/20 09:13 Blood Type O POSITIVE 04/06/20 08:23 Antibody Screen NEGATIVE 04/06/20 08:23 Crossmatch See Detail 04/06/20 08:23 02/08/20 02/08/20 02/21/20 09:49 13:11 04:50 Troponin I 0.160 0.155 NT-Pro-B Natriuret Pep 5540 H 22801 H 09/08/1503/09/20 03/20/20 05:35 04:00 06:10 Troponin I NT-Pro-B Natriuret Pep 48023 H 70862 H 50265 H EKG Comments: Atrial fib with occ PVCs. Impressions: Hip/Pelvis X-Ray 02/08/20 00:00 IMPRESSION: No acute fracture. Severe degenerative changes of the left hip. Knee X-Ray 02/08/20 00:00 IMPRESSION: NEGATIVE STUDY OF THE RIGHT KNEE. NO RADIOGRAPHIC EVIDENCE OF ACUTE INJURY. Chest X-Ray 02/08/20 09:53 IMPRESSION: No evidence of acute cardiopulmonary abnormality. Head CT 02/08/20 10:19 IMPRESSION: MILD CHRONIC CHANGES OF ATROPHY AND MICROVASCULAR ISCHEMIA. NO ACUTE PROCESS. EVIDENCE OF ACUTE STROKE: NO. Chest X-Ray 02/11/20 00:00 IMPRESSION: Acute asymmetric opacities in the inferior aspect of the right hemithorax. Correlation with clinical findings to exclude a pneumonia is recommended. Chest X-Ray 02/12/20 00:00 IMPRESSION: 1. Re- demonstration of bibasilar airspace opacities 2. Interval placement of endotracheal tube, enteric tube, and right cervical vascular access catheter without evidence of complication. Chest X-Ray 02/13/20 05:00 IMPRESSION: 1. While constellation of findings may represent worsening cardiac function, given the asymmetry of pulmonary findings, infectious etiology is not excluded. 2. Stable lines and tubes. Chest X-Ray 02/14/20 05:00 IMPRESSION: Stable enlarged cardiac silhouette and patchy bibasilar opacities, right greater than left. Findings may represent asymmetric edema or infection. Endotracheal tube tip overlies midthoracic trachea. Additional lines and tubes as above. Chest X-Ray 02/17/20 05:00 IMPRESSION: STABLE PATCHY BIBASILAR OPACITIES AND SMALL BILATERAL EFFUSIONS, RIGHT GREATER THAN LEFT. ENDOTRACHEAL TUBE TIP OVERLIES LOWER THORACIC TRACHEA, 2.2 CM ABOVE THE GILES. ADDITIONAL LINES AND TUBES ABOVE. Chest X-Ray 02/20/20 00:00 IMPRESSION: Slight improved aeration of the left base. Renal Ultrasound 02/21/20 00:00 IMPRESSION: Increased echogenicity of the renal parenchyma suggestive of underlying chronic medical renal disease. There is no hydronephrosis. There is a Ryan catheter within the urinary bladder. Chest X-Ray 02/23/20 00:00 IMPRESSION: No change from 02/20/2020 Chest X-Ray 02/27/20 00:00 IMPRESSION: Tip of the enteric tube is now in the proximal stomach. Other findings of the chest are stable copyright 2011 [employer]- All Rights Reserved Chest X-Ray 03/03/20 05:00 IMPRESSION: STABLE APPEARANCE OF THE CHEST. SUPPORT DEVICES UNCHANGED. Chest X-Ray 03/04/20 04:00 IMPRESSION: Unchanged radiographic appearance of the chest. Chest X-Ray 03/06/20 05:00 IMPRESSION: 1. Stable pulmonary exam. 2. Stable lines and tubes. Chest X-Ray 03/08/20 05:00 IMPRESSION: No significant change. No pneumothorax. Head CT 03/08/20 08:56 IMPRESSION: MILD CHRONIC CHANGES OF ATROPHY AND MICROVASCULAR ISCHEMIA. NO ACUTE PROCESS. EVIDENCE OF ACUTE STROKE: NO. Chest CT 03/08/20 10:12 IMPRESSION: Extensive bilateral infiltrates. No pneumothorax. Chest X-Ray 03/10/20 00:00 IMPRESSION: Multifocal consolidation. This has significantly worsened in the right chest. No definitive pneumothorax or subcutaneous emphysema. KUB X-Ray 03/10/20 00:00 IMPRESSION: Nonspecific bowel gas pattern. Esophagogastric tube tip and side- hole are within the stomach. Chest X-Ray 03/11/20 06:00 IMPRESSION: Support lines and tubes are stable in appearance. Improved aeration in the right base. Persistent upper and lower lobe airspace disease. Chest X-Ray 03/12/20 06:00 IMPRESSION: Tubes and lines as above. Otherwise unchanged radiographic appearance of the chest. Chest X-Ray 03/13/20 06:00 IMPRESSION: Tubes and lines as above. Otherwise unchanged radiographic appearance of the chest. Chest X-Ray 03/14/20 06:00 IMPRESSION: No significant interval change in the bibasilar patchy pulmonary opacities. Support devices are unchanged. Chest X-Ray 03/15/20 06:00 IMPRESSION: No significant interval change. Diffuse bilateral mid to lower lung patchy opacities and small right effusion are stable. Chest X-Ray 03/16/20 06:00 IMPRESSION: STABLE APPEARANCE OF THE CHEST. SUPPORT DEVICES UNCHANGED. Chest X-Ray 03/18/20 00:00 IMPRESSION: STABLE APPEARANCE OF THE CHEST. SUPPORT DEVICES UNCHANGED. Chest X-Ray 03/22/20 00:00 IMPRESSION: No change from 03/14/2020. Chest X-Ray 03/25/20 00:00 IMPRESSION: Slight improvement. No pneumothorax. KUB X-Ray 04/01/20 00:00 IMPRESSION: NG tube as described. Chest X-Ray 04/02/20 05:00 IMPRESSION: NO SIGNIFICANT INTERVAL CHANGE IN APPEARANCE OF THE CHEST. Guidance Fluoroscopy 04/08/20 00:00 IMPRESSION: IMAGE(S) OBTAINED DURING PROCEDURE. Chest X-Ray 04/08/20 05:00 IMPRESSION: STABLE APPEARANCE OF THE CHEST. SUPPORT DEVICES UNCHANGED. Chest X-Ray 04/09/20 05:00 IMPRESSION: INTERVAL PLACEMENT OF A MULTI LUMEN CATHETER. OTHERWISE NO SIGNIFICANT INTERVAL CHANGE. Plan Health Concerns: His prognosis has been electrolytic de scaler and wes. He was not expected to survive COVID at his age with his heart. The concern is that he will not recover function, decubitus will not heal and is heart may give out causing his demise. Plan of Treatment: As described above for his decubitus, dialysis and rehab if possible. Goals: Stable health status with reasonable quality of life acceptable to him. Stroke Is this a Stroke Patient?: No Acute Heart Failure Is this a Heart Failure Patient?: Yes Documentation of LVEF assessment?: Yes LVEF: LVEF Less Than or Equal to 35% Anticoagulant Therapy: Yes Discharged on Evidence-Based Beta Blockers: Yes Discharged on ARNI?: Yes Discharged on ARB?: No-document contraindications Reason(s) not Discharged on ARB: Hypotenson Discharged on ACEI?: No, document contraindications Reason(s) not Discharged on ACEI: Hyperkalemia, Hypotension For LVEF <35%, discharged on Aldosterone Antagonist?: No-document contraincations Reason(s) not discharged on Aldosterone Antagonist: Renal dysfunction (creatinine >2.5 mg/dL in men or 2.0 mg/dL in women) Follow-up Appointment scheduled within 7 days?: No, document reason - Going to LT[facility]
[2020-04-10] MEDS: CITALOPRAM HYDROBROMIDE 20 MG TABLET NG SCH (09:07)
[2020-04-10] MEDS: HYDRALAZINE HCL 25 MG TABLET NG SCH (09:08)
[2020-04-10] MEDS: LABETALOL HCL 200 MG TABLET NG SCH (09:08)
[2020-04-10] MEDS: CHOLECALCIFEROL (D3) 1,000 UNIT (25 MCG) TABLET NG SCH ×3 (09:08→18:26)
[2020-04-10] MEDS: NYSTATIN TOPICAL POWDER 15 GM TP SCH (09:09)
[2020-04-10] MEDS: COLLAGENASE CLOSTRIDIUM HIST. OINT 30 GM TOP SCH (09:10)
[2020-04-10] MEDS: AMINO AC/PROTEIN HYDR/WHEY PRO 11 GM/45 ML PKT NG SCH ×3 (09:10→18:25)
[2020-04-10] MEDS: CALCITRIOL 1 MCG/ML ORAL SOLN 15 ML NG SCH (10:29)
[2020-04-10] MEDS: PANTOPRAZOLE SODIUM 40 MG VIAL IV SCH (10:57)
--- NOTE | 2020-04-10 16:06 | PDOC PROGRESS REPORT ---
Subjective Progress Note for:: 04/10/20 Subjective:: I am seeing the patient during dialysis treatment this morning. Patient continues to be on a trach collar. He is awake and comfortably receiving dialysis. When asked if is doing okay he nods. Patient is supposed to be transferred to the LTAC after dialysis today. Reason For Visit: WEAKNESS,ELEVATED TROPONIN,CHF Physical Exam Vital Signs: Temp Pulse Resp BP Pulse Ox 98.4 F 112 H 20 187/63 H 99 04/10/20 08:27 04/10/20 08:00 04/10/20 08:27 04/10/20 08:27 04/10/20 08:27 Pulse Oximeter Nocturnal Start: 02/08/20 13:55 Freq: RTQ4 Status: Complete Protocol: Document 02/09/20 04:00 LRO (Rec: 02/09/20 05:38 LRO [email or web address]) Nocturnal Pulse Oximetry Equipment Usage Equipment in Use Oxygen Delivery Method (includes room Room Air air) O2 Sat by Pulse Oximetry (92-100) 95 Continuous SpO2 Machine # 2 Pulse Oximeter Nocturnal Start: 02/10/20 11:39 Freq: RTQ4 Status: Complete Protocol: Document 02/11/20 04:06 PMU (Rec: 02/11/20 05:06 PMU [email or web address]) Nocturnal Pulse Oximetry Equipment Usage Equipment in Use Oxygen Delivery Method (includes room Room Air air) O2 Sat by Pulse Oximetry (92-100) 93 Continuous SpO2 Machine # N2 Intake & Output 04/09/20 04/10/20 04/11/20 06:59 06:59 06:59 Intake Total 150 737 Output Total 2030 250 5 Balance -1880 487 -5 Weight 100 kg 100.3 kg Vitals during dialysis: Blood pressure 172/96, heart rate of 119 223, respiration of 22, oxygen saturation 98% on trach collar. Blood flow rate in dialysis 350 mL/min and dialysate flow rate of 800 mL/min. Exam: General appearance: PRESENT: On trach collar Head exam: PRESENT: atraumatic, normocephalic Eye exam: PRESENT: conjunctiva pale, PERRLA. ABSENT: scleral icterus Neck exam: ABSENT: JVD Respiratory exam: PRESENT: Diminished breath sounds. ABSENT: crackles, rales, rhonchi, unlabored, wheezes Cardiovascular exam: PRESENT: Irregularly irregular rate rhythm -+S1, +S2. ABSENT: diastolic murmur, systolic murmur GI/Abdominal exam: PRESENT: normal bowel sounds, soft. ABSENT: guarding, mass, tenderness Extremities exam: Improved trace bilateral lower extremity pitting edema Neurological exam: PRESENT: alert, awake, patient able to talk. Skin exam: PRESENT: dry, warm, Cardiovascular exam: PRESENT: +S1, +S2 GI/Abdominal exam: PRESENT: normal bowel sounds, soft. ABSENT: organomegaly, tenderness Results Laboratory Results: 04/10/20 07:00 04/10/20 07:00 04/09/20 04/09/20 04/10/20 18:00 18:00 03:55 WBC 9.2 RBC 3.11 L Hgb 9.3 L Hct 28.3 L MCV 91 MCH 29.8 MCHC 32.9 RDW 19.2 H Plt Count 210 Seg Neutrophils % 75.5 Carbonic Acid 1.12 HCO3/H2CO3 Ratio 20:1 ABG pH 7.42 ABG pCO2 37.2 ABG pO2 94.9 ABG HCO3 23.4 ABG O2 Saturation 97.4 ABG Base Excess -0.9 FiO2 35% Sodium 135.8 L Potassium 3.6 Chloride 103 Carbon Dioxide 25 Anion Gap 8 BUN 44 H Creatinine 1.46 H Est GFR ( Amer) 57 L Glucose 80 Calcium 7.8 L Total Bilirubin 0.9 AST 29 Alkaline Phosphatase 87 Total Protein 4.9 L Albumin 2.2 L 04/10/20 04/10/20 07:00 07:00 WBC 10.0 RBC 2.90 L Hgb 8.8 L Hct 26.1 L MCV 90 MCH 30.3 MCHC 33.6 RDW 18.8 H Plt Count 238 Seg Neutrophils % 75.0 Carbonic Acid HCO3/H2CO3 Ratio ABG pH ABG pCO2 ABG pO2 ABG HCO3 ABG O2 Saturation ABG Base Excess FiO2 Sodium 138.2 Potassium 3.5 L Chloride 104 Carbon Dioxide 26 Anion Gap 8 BUN 48 H Creatinine 1.62 H Est GFR ( Amer) 51 L Glucose 92 Calcium 7.7 L Total Bilirubin 0.8 AST 28 Alkaline Phosphatase 98 Total Protein 4.8 L Albumin 2.1 L 02/08/20 02/08/20 02/21/20 09:49 13:11 04:50 Troponin I 0.160 0.155 NT-Pro-B Natriuret Pep 5540 H 60616 H 02/26/20 03/09/20 03/20/20 05:35 04:00 06:10 Troponin I NT-Pro-B Natriuret Pep 99114 H 28523 H 16878 H Impressions: Hip/Pelvis X-Ray 02/08/20 00:00 IMPRESSION: No acute fracture. Severe degenerative changes of the left hip. Knee X-Ray 02/08/20 00:00 IMPRESSION: NEGATIVE STUDY OF THE RIGHT KNEE. NO RADIOGRAPHIC EVIDENCE OF ACUTE INJURY. Renal Ultrasound 02/21/20 00:00 IMPRESSION: Increased echogenicity of the renal parenchyma suggestive of under lying chronic medical renal disease. There is no hydronephrosis. There is a Ryan catheter within the urinary bladder. Head CT 03/08/20 08:56 IMPRESSION: MILD CHRONIC CHANGES OF ATROPHY AND MICROVASCULAR ISCHEMIA. NO ACUTE PROCESS. EVIDENCE OF ACUTE STROKE: NO. Chest CT 03/08/20 10:12 IMPRESSION: Extensive bilateral infiltrates. No pneumothorax. KUB X-Ray 04/01/20 00:00 IMPRESSION: NG tube as described. Guidance Fluoroscopy 04/08/20 00:00 IMPRESSION: IMAGE(S) OBTAINED DURING PROCEDURE. Chest X-Ray 04/10/20 05:00 IMPRESSION: Stable chest with patchy bibasilar opacities and likely trace effusions. Assessment & Plan - Diagnosis (1) Acute kidney injury superimposed on chronic kidney disease Is this a current diagnosis for this admission?: Yes Plan: Patient is still oligo-anuric, requiring renal replacement therapy. Patient likely to have ATN in the background of cardiomyopathy with ejection fraction of 25 to 30% and grade 3 diastolic dysfunction. Continue renal replacement therapy support. We will do dialysis today for 3.0 hours, using the patient's dialysis catheter, with 3 potassium bath, blood flow rate of 350 mL per minute, dialysate flow rate of 800 mL per minute, ultrafiltration 1.0 L as tolerated, no heparin and Retacrit with 10,000 units during dialysis intravenously. Patient is currently being monitored throughout dialysis treatment. Temporary dialysis catheter was removed last week. Catheter tip was positive for MSSA. Patient currently on vancomycin and meropenem. Vancomycin trough level of 21.6, pharmacy following. PermCath placed and currently functional. (2) Decubitus ulcer of sacral region, unstageable Is this a current diagnosis for this admission?: Yes Plan: Status post surgical debridement couple of times. (3) Hypocalcemia Is this a current diagnosis for this admission?: Yes Plan: Currently on calcitriol , and increased dose of vitamin D. Now within normal limits. (4) Anemia Qualifiers: Anemia type: iron deficiency Is this a current diagnosis for this admission?: Yes Plan: Acute blood loss after sacral decubitus debridement last 04/06/2020. Currently on Retacrit during dialysis. (5) Atrial fibrillation Qualifiers: Atrial fibrillation type: persistent (not longstanding) Qualified Code(s): I48.19 - Other persistent atrial fibrillation; I48.1 - Persistent atrial fibrillation Is this a current diagnosis for this admission?: Yes Plan: Previously on diltiazem drip. Now on IV digoxin. (6) Hypoalbuminemia Is this a current diagnosis for this admission?: Yes Plan: Chronic and persistent. (7) Hyponatremia Is this a current diagnosis for this admission?: Yes Plan: Finally resolved and now within normal limits. (8) MRSA pneumonia Qualifiers: Laterality: bilateral Lung location: unspecified part of lung Qualified Code(s): J15.212 - Pneumonia due to Methicillin resistant Staphylococcus aureus Is this a current diagnosis for this admission?: Yes Plan: Completed treatment with cefepime and doxycycline. (9) Gram negative sepsis Is this a current diagnosis for this admission?: Yes Plan: Resolved. 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 (13) COVID-19 virus infection Is this a current diagnosis for this admission?: Yes Plan: Finally tested Covid negative on 03/30/2020. (14) Acute respiratory failure due to COVID-19 Is this a current diagnosis for this admission?: Yes Plan: Per supervisor photostat. On trach collar now. - Time Time with patient: 15-25 minutes
[2020-04-10] MEDS: HYDRALAZINE HCL INJ/PF 20 MG/1 ML SDV IV PRN (16:25)
[2020-04-10] MEDS: APIXABAN 2.5 MG TABLET NG SCH (18:25)
[2020-04-10 18:32] LABS: VANCOMYCIN,TROUGH 16.3 ug/mL (5.0-20.0)
[2020-04-10] MEDS: VANCOMYCIN HCL 500 MG in DEXTROSE 5%-WATER 100 ML IV SCH (19:30)
[2020-04-10] MEDS ORDERED: METOCLOPRAMIDE HCL INJ/PF 10 MG/2 ML SDV ONE (21:48)
[2020-04-10] MEDS ORDERED: FAMOTIDINE INJ/PF 20 MG/2 ML SDV IV ONE (21:48)
[2020-04-11] MEDS: HYDRALAZINE HCL 25 MG TABLET NG SCH ×3 (00:01→22:44)
[2020-04-11] MEDS: AMINO AC/PROTEIN HYDR/WHEY PRO 11 GM/45 ML PKT NG SCH ×5 (00:02→22:47)
[2020-04-11] MEDS: NYSTATIN TOPICAL POWDER 15 GM TP SCH ×4 (00:07→22:26)
[2020-04-11] MEDS: MEROPENEM 1 GM in NORMAL SALINE 50 ML IV SCH ×3 (01:42→19:48)
[2020-04-11] MEDS: HYDRALAZINE HCL INJ/PF 20 MG/1 ML SDV IV PRN (03:27)
[2020-04-11 06:24] LABS: ALBUMIN 2.3 g/dL (3.5-5.0); ALKALINE PHOSPHATASE 113 U/L (38-126); ANION GAP 7 (5-19); ASPARTATE AMINO TRANSFERASE 25 U/L (17-59); BILIRUBIN,DIRECT 0.5 mg/dL (0.0-0.4); BILIRUBIN,TOTAL 0.8 mg/dL (0.2-1.3); BLOOD UREA NITROGEN 33 mg/dL (7-20); CALCIUM 7.9 mg/dL (8.4-10.2); CARBON DIOXIDE 27 mmol/L (22-30); CHLORIDE 101 mmol/L (98-107); GLUCOSE 104 mg/dL (75-110); POTASSIUM 3.1 mmol/L (3.6-5.0); TOTAL PROTEIN 4.9 g/dL (6.3-8.2)
--- NOTE | 2020-04-11 08:10 | RADIOLOGY REPORT (SQ) ---
EXAM DESCRIPTION: CHEST SINGLE VIEW IMAGES COMPLETED DATE/TIME: 04/11/2020 4:45 am REASON FOR STUDY: vent COMPARISON: Chest films 04/08/2020, 04/09/2028, 04/10/2020 EXAM PARAMETERS: NUMBER OF VIEWS: One view. TECHNIQUE: Single frontal radiographic view of the chest acquired. RADIATION DOSE: NA LIMITATIONS: None. FINDINGS: LUNGS AND PLEURA: No change in appearance of the lungs, upper lobes are hyperlucent from o bstructive disease. Alveolar and interstitial infiltrates in the mid and lower lungs, edema versus p neumonia. No gross pleural effusion or pneumothorax. MEDIASTINUM AND HILAR STRUCTURES: No masses. Contour normal. HEART AND VASCULAR STRUCTURES: Stable cardiomegaly, old sternotomy with CABG. BONES: No acute findings. HARDWARE: Loop recorder anterior left chest. Tracheostomy. Right jugular dialysis catheter tip in t he superior vena cava OTHER: No other significant finding. IMPRESSION: No change from yesterday TECHNICAL DOCUMENTATION: JOB ID: [id number] 2010 [employer]- All Rights Reserved Reading location - IP/workstation name: [id number]
--- NOTE | 2020-04-11 10:03 | PDOC CRITICAL CARE PROG REPORT ---
General Date:: 04/11/20 Resuscitation Status: Full Code Events in the past 12 to 24 Hours:: Transfer to LTAC cancelled at last minute by LTAC Review of systems relevant to events:: Renal, neurologic. Reason for ICU Addmission:: Ready for LTAC. - Medications: Medications reviewed and adjusted accordingly: Yes Vasopressors:: None Sedation:: None Physical Exam Vital Signs: Temp Pulse Resp BP Pulse Ox 100.0 F 114 H 24 H 131/49 H 97 04/11/20 07:21 04/10/20 18:00 04/11/20 07:21 04/11/20 07:21 04/11/20 07:21 Pulse Oximeter Nocturnal Start: 02/08/20 13:55 Freq: RTQ4 Status: Complete Protocol: Document 02/09/20 04:00 LRO (Rec: 02/09/20 05:38 LRO [id number]) Nocturnal Pulse Oximetry Equipment Usage Equipment in Use Oxygen Delivery Method (includes room Room Air air) O2 Sat by Pulse Oximetry (92-100) 95 Continuous SpO2 Machine # 2 Pulse Oximeter Nocturnal Start: 02/10/20 11:39 Freq: RTQ4 Status: Complete Protocol: Document 02/11/20 04:06 PMU (Rec: 02/11/20 05:06 PMU [email or web address]) Nocturnal Pulse Oximetry Equipment Usage Equipment in Use Oxygen Delivery Method (includes room Room Air air) O2 Sat by Pulse Oximetry (92-100) 93 Continuous SpO2 Machine # N2 Intake & Output 04/10/20 04/11/20 04/12/20 06:59 06:59 06:59 Intake Total 737 150 Output Total 250 610 Balance 487 -460 Weight 100.3 kg 101 kg Weight/Height Weight 101 kg Height 5 ft 9 in General appearance: PRESENT: no acute distress, cooperative Head exam: PRESENT: atraumatic, normocephalic Eye exam: PRESENT: conjunctiva pink, EOMI, PERRLA. ABSENT: scleral icterus Ear exam: PRESENT: normal external ear exam Mouth exam: PRESENT: moist, tongue midline Neck exam: PRESENT: tracheostomy Respiratory exam: PRESENT: clear to auscultation kevyn. ABSENT: rales, rhonchi, wheezes Cardiovascular exam: PRESENT: RRR, tachycardia. ABSENT: diastolic murmur, rubs, systolic murmur GI/Abdominal exam: PRESENT: normal bowel sounds, soft, other - Colostomy functional. Incision clean. PEG site clean.. ABSENT: distended, guarding, mass, organolmegaly, rebound, tenderness Rectal exam: PRESENT: deferred Extremities exam: PRESENT: full ROM. ABSENT: calf tenderness, clubbing, pedal edema Musculoskeletal exam: PRESENT: normal inspection Neurological exam: PRESENT: alert, awake, CN II-XII grossly intact, other - Still quite weak. Psychiatric exam: PRESENT: appropriate affect, normal mood. ABSENT: homicidal ideation, suicidal ideation Tubes/Lines: PRESENT: Dialysis catheter, Peg Tube, Other - Tracheotomy Laboratory/Radiographs Laboratory Results: 04/10/20 07:00 04/11/20 05:10 04/11/20 05:10 Sodium 134.6 L Potassium 3.1 L Chloride 101 Carbon Dioxide 27 Anion Gap 7 BUN 33 H Creatinine 1.27 H Est GFR ( Amer) > 60 Glucose 104 Calcium 7.9 L Total Bilirubin 0.8 AST 25 Alkaline Phosphatase 113 Total Protein 4.9 L Albumin 2.3 L 02/08/20 02/08/20 02/21/20 09:49 13:11 04:50 Troponin I 0.160 0.155 NT-Pro-B Natriuret Pep 5540 H 20557 H 02/26/20 03/09/20 03/20/20 05:35 04:00 06:10 Troponin I NT-Pro-B Natriuret Pep 67224 H 38345 H 95709 H Impressions: Hip/Pelvis X-Ray 02/08/20 00:00 IMPRESSION: No acute fracture. Severe degenerative changes of the left hip. Knee X-Ray 02/08/20 00:00 IMPRESSION: NEGATIVE STUDY OF THE RIGHT KNEE. NO RADIOGRAPHIC EVIDENCE OF ACUTE INJURY. Renal Ultrasound 02/21/20 00:00 IMPRESSION: Increased echogenicity of the renal parenchyma suggestive of underlying chronic medical renal disease. There is no hydronephrosis. There is a Ryan catheter within the urinary bladder. Head CT 03/08/20 08:56 IMPRESSION: MILD CHRONIC CHANGES OF ATROPHY AND MICROVASCULAR ISCHEMIA. NO ACUTE PROCESS. EVIDENCE OF ACUTE STROKE: NO. Chest CT 03/08/20 10:12 IMPRESSION: Extensive bilateral infiltrates. No pneumothorax. KUB X-Ray 04/01/20 00:00 IMPRESSION: NG tube as described. Guidance Fluoroscopy 04/08/20 00:00 IMPRESSION: IMAGE(S) OBTAINED DURING PROCEDURE. Chest X-Ray 04/11/20 05:00 IMPRESSION: No change from yesterday All labs, radiographs, diagnostic studies and EKGs were personally reviewed: Yes In addition, reports of radiographic and diagnostic studies were read: Yes Assessment and Plan - Diagnosis (1) Polyneuropathy associated with critical illness Is this a current diagnosis for this admission?: Yes Plan: Still weak in need of extensive rehab. (2) Osteomyelitis Qualifiers: Osteomyelitis type: other chronic Osteomyelitis location: other site Qualified Code(s): M86.68 - Other chronic osteomyelitis, other site Is this a current diagnosis for this admission?: Yes Plan: Continue dressing changes, Santyl, antibiotics. (3) CKD (chronic kidney disease) stage 5, GFR less than 15 ml/min Is this a current diagnosis for this admission?: Yes Plan: HD on //. (4) Acute on chronic diastolic CHF (congestive heart failure) Is this a current diagnosis for this admission?: Yes Plan: Inactive (5) Coronary artery disease Qualifiers: Coronary Disease-Associated Artery/Lesion type: unspecified vessel or lesion type [place] vs. transplanted heart: [place] heart Associated angina: with unspecified angina Qualified Code(s): I25.119 - Atherosclerotic heart disease of [place] coronary artery with unspecified angina pectoris Is this a current diagnosis for this admission?: Yes Plan: Inactive (6) Obesity (BMI 30-39.9) Is this a current diagnosis for this admission?: Yes Plan: Less so with weight loss while hospitalized (7) Anemia Qualifiers: Anemia type: iron deficiency Is this a current diagnosis for this admission?: Yes Plan: Stable (8) HTN (hypertension) Qualifiers: Hypertension type: essential hypertension Qualified Code(s): I10 - Essential (primary) hypertension Is this a current diagnosis for this admission?: Yes Plan: Controlled Plan Summary: Again ready for LTAC. Critical Time Critical Time (minutes): 25 Level of Care: IMCU Anticipated discharge: Other Anticipated DC Timeframe: Other -: 1. The care of a critical patient is a dynamic process. This note is a volunteer patient representative synopsis but static in nature. The timeframe for treatments given in order is not necessarily the actual time these treatments may have been done. 2. This patient requires critical care secondary to ongoing requirements for therapy not offered or safe outside the critical care environment. Transfer to a lower level of care will result in altered life or limb morbidity and mortality. 3. Multidisciplinary rounds completed. 4. ABCDE bundle addressed.
[2020-04-11] MEDS: CHOLECALCIFEROL (D3) 1,000 UNIT (25 MCG) TABLET NG SCH ×3 (10:09→19:48)
[2020-04-11] MEDS: APIXABAN 2.5 MG TABLET NG SCH ×2 (10:09→19:49)
[2020-04-11] MEDS: HYDROMORPHONE HCL INJ/PF 2 MG/ML AMPULE IV PRN ×2 (10:10→21:16)
[2020-04-11] MEDS: COLLAGENASE CLOSTRIDIUM HIST. OINT 30 GM TOP SCH (10:10)
[2020-04-11] MEDS: CITALOPRAM HYDROBROMIDE 20 MG TABLET NG SCH (10:10)
--- NOTE | 2020-04-11 10:11 | PDOC PROGRESS REPORT ---
Subjective Progress Note for:: 04/11/20 Subjective:: Tolerating tube feedings well. Trach in place. Diverting colostomy functioning well. Large decubitus ulcer relatively clean. Will place wound VAC for this decubitus and try to healing but now that he has diverting colostomy. He will need the help of plastic surgery at the wound care center soon as discharged. Reason For Visit: WEAKNESS,ELEVATED TROPONIN,CHF Physical Exam Vital Signs: Temp Pulse Resp BP Pulse Ox 100.0 F 114 H 24 H 131/49 H 97 04/11/20 07:21 04/10/20 18:00 04/11/20 07:21 04/11/20 07:21 04/11/20 07:21 Pulse Oximeter Nocturnal Start: 02/08/20 13:55 Freq: RTQ4 Status: Complete Protocol: Document 02/09/20 04:00 LRO (Rec: 02/09/20 05:38 LRO [id number]) Nocturnal Pulse Oximetry Equipment Usage Equipment in Use Oxygen Delivery Method (includes room Room Air air) O2 Sat by Pulse Oximetry (92-100) 95 Continuous SpO2 Machine # 2 Pulse Oximeter Nocturnal Start: 02/10/20 11:39 Freq: RTQ4 Status: Complete Protocol: Document 02/11/20 04:06 PMU (Rec: 02/11/20 05:06 PMU [email or web address]) Nocturnal Pulse Oximetry Equipment Usage Equipment in Use Oxygen Delivery Method (includes room Room Air air) O2 Sat by Pulse Oximetry (92-100) 93 Continuous SpO2 Machine # N2 Intake & Output 04/10/20 04/11/20 04/12/20 06:59 06:59 06:59 Intake Total 737 150 Output Total 250 610 Balance 487 -460 Weight 100.3 kg 101 kg Results Laboratory Results: 04/10/20 07:00 04/11/20 05:10 04/11/20 05:10 Sodium 134.6 L Potassium 3.1 L Chloride 101 Carbon Dioxide 27 Anion Gap 7 BUN 33 H Creatinine 1.27 H Est GFR ( Amer) > 60 Glucose 104 Calcium 7.9 L Total Bilirubin 0.8 AST 25 Alkaline Phosphatase 113 Total Protein 4.9 L Albumin 2.3 L 02/08/20 02/08/20 02/21/20 09:49 13:11 04:50 Troponin I 0.160 0.155 NT-Pro-B Natriuret Pep 5540 H 49425 H 02/26/20 03/09/20 03/20/20 05:35 04:00 06:10 Troponin I NT-Pro-B Natriuret Pep 09796 H 01684 H 58399 H Impressions: Hip/Pelvis X-Ray 02/08/20 00:00 IMPRESSION: No acute fracture. Severe degenerative changes of the left hip. Knee X-Ray 02/08/20 00:00 IMPRESSION: NEGATIVE STUDY OF THE RIGHT KNEE. NO RADIOGRAPHIC EVIDENCE OF ACUTE INJURY. Renal Ultrasound 02/21/20 00:00 IMPRESSION: Increased echogenicity of the renal parenchyma suggestive of underlying chronic medical renal disease. There is no hydronephrosis. There is a Ryan catheter within the urinary bladder. Head CT 03/08/20 08:56 IMPRESSION: MILD CHRONIC CHANGES OF ATROPHY AND MICROVASCULAR ISCHEMIA. NO ACUTE PROCESS. EVIDENCE OF ACUTE STROKE: NO. Chest CT 03/08/20 10:12 IMPRESSION: Extensive bilateral infiltrates. No pneumothorax. KUB X-Ray 04/01/20 00:00 IMPRESSION: NG tube as described. Guidance Fluoroscopy 04/08/20 00:00 IMPRESSION: IMAGE(S) OBTAINED DURING PROCEDURE. 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 Is this a current diagnosis for this admission?: Yes (2) Decubitus ulcer of sacral region, unstageable Is this a current diagnosis for this admission?: Yes (3) HTN (hypertension) Qualifiers: Hypertension type: essential hypertension Qualified Code(s): I10 - Essential (primary) hypertension Is this a current diagnosis for this admission?: Yes (4) Hyperglycemia Is this a current diagnosis for this admission?: Yes (5) Osteomyelitis Qualifiers: Osteomyelitis type: other chronic Osteomyelitis location: other site Qualified Code(s): M86.68 - Other chronic osteomyelitis, other site Is this a current diagnosis for this admission?: Yes (6) Sacral decubitus ulcer Is this a current diagnosis for this admission?: Yes (7) Acute respiratory failure with hypoxia Is this a current diagnosis for this admission?: Yes (8) Obesity (BMI 30-39.9) Is this a current diagnosis for this admission?: Yes - Time Anticipated Discharge Disposition: [facility] Facility Anticipated Discharge Timeframe: 1 week - Plan Summary Plan Summary: 70-year-old male post trach, PEG tube and loop sigmoid colostomy for large decubitus ulcer sacral area. Patient is relatively stable with the colostomy functioning well and tolerating PEG tube feedings. Will place a wound VAC for this large decubitus ulcer and patient will eventfully need follow-up of the wound care center and needs the help of plastic surgery.
[2020-04-11] MEDS: CALCITRIOL 1 MCG/ML ORAL SOLN 15 ML NG SCH (10:13)
[2020-04-11] MEDS ORDERED: NORMAL SALINE 250 ML IV PRN ×3 (19:10→19:39)
[2020-04-11 19:33] LABS: ABSOLUTE BASOPHILS # (AUTO) 0.1 10^3/uL (0.0-0.2); ABSOLUTE EOSINOPHILS # (AUTO) 0.2 10^3/uL (0.0-0.6); ABSOLUTE LYMPHOCYTES (AUTO) 1.6 10^3/uL (0.5-4.7); ABSOLUTE NEUT (AUTO) 10.1 10^3/uL (1.7-8.2); BASOPHILS % (AUTO) 0.8 % (0-2); EOSINOPHILS % (AUTO) 1.8 % (0-6); HEMOGLOBIN 8.1 g/dL (13.5-17.0); LYMPHOCYTES % (AUTO) 12.1 % (13-45); MEAN CORPUSCULAR HEMOGLOBIN 29.3 pg (27.0-33.4); MEAN CORPUSCULAR HGB CONC 32.6 g/dL (32.0-36.0); MEAN CORPUSCULAR VOLUME 90 fl (80-97); MONOCYTES % (AUTO) 7.9 % (3-13); PLATELET COUNT 257 10^3/uL (150-450); RED BLOOD COUNT 2.77 10^6/uL (4.35-5.55); RED CELL DISTRIBUTION WIDTH 18.3 % (11.5-14.0); SEGMENTED NEUTROPHILS % (AUTO) 77.4 % (42-78); TOTAL CELLS COUNTED % (AUTO) 100 %; WHITE BLOOD COUNT 13.1 10^3/uL (4.0-10.5)
[2020-04-11 19:56] LABS: INTERNATIONAL RATION (INR) 1.24; PROTHROMBIN TIME 15.8 SEC (11.4-15.4)
[2020-04-11 19:56] LABS: ALBUMIN 2.1 g/dL (3.5-5.0); ALKALINE PHOSPHATASE 108 U/L (38-126); ANION GAP 8 (5-19); ASPARTATE AMINO TRANSFERASE 25 U/L (17-59); BILIRUBIN,DIRECT 0.6 mg/dL (0.0-0.4); BILIRUBIN,TOTAL 0.7 mg/dL (0.2-1.3); BLOOD UREA NITROGEN 44 mg/dL (7-20); CALCIUM 8.1 mg/dL (8.4-10.2); CARBON DIOXIDE 28 mmol/L (22-30); CHLORIDE 101 mmol/L (98-107); GLUCOSE 126 mg/dL (75-110); POTASSIUM 3.2 mmol/L (3.6-5.0); TOTAL PROTEIN 4.7 g/dL (6.3-8.2)
[2020-04-11 19:57] LABS: PARTIAL THROMBOPLASTIN TIME 41.1 SEC (23.5-35.8)
[2020-04-11] MEDS ORDERED: THROMBIN (BOVINE) 5000 UNIT EPITAXIS KIT ONE (20:30)
[2020-04-11] MEDS ORDERED: THROMBIN (BOVINE) TOPICAL 20000 UNIT VIAL ONE ×2 (20:32)
[2020-04-11] MEDS ORDERED: LORAZEPAM INJ 2 MG/1 ML VIAL ONE (20:41)
[2020-04-11] MEDS ORDERED: NORMAL SALINE 1000 ML 1,000 ML IV ONE (20:45)
[2020-04-11] MEDS: POTASSI CL 20 MEQ/50 ML RIDER 20 MEQ/50 ML RTUPB IV SCH ×2 (20:48→22:44)
[2020-04-11] MEDS ORDERED: FUROSEMIDE INJ/PF 20 MG/2 ML SDV ONE (21:05)
[2020-04-11] MEDS ORDERED: LORAZEPAM INJ 2 MG/1 ML VIAL IV ONE (21:15)
[2020-04-11] MEDS ORDERED: [UNRECOGNIZED DRUG - OTHER] IV ONE (21:30)
[2020-04-11] MEDS ORDERED: HUM PROTHROMBIN CPLX IV ONE (21:30)
[2020-04-11] MEDS ORDERED: FUROSEMIDE INJ/PF 20 MG/2 ML SDV IV ONE (21:30)
--- NOTE | 2020-04-11 22:00 | Progress Note ---
Provider Note Provider Note: 1910- Nurse noted patient to have large amount of blood clots in bed with him coming from rectum and also had bright red blood in colostomy. Patient remains hemodynamically stable HR 120 instructed staff to notify surgeon, Dr. Pineda. Patient is currently on Elaquis instructed to stop this medication, stat labs or dered HGB remained 8.1. Attempted to order Andexa reversal for eliquis however it is not available at this facility. Kcentra is avaialble and recommended by pharmacist Dr. Pineda recommended transfusion of kcentra at this time. Patient transfused two units of PRBC due to blood loss. Dr. Pineda at bedside attempted to stop bleed with packing rectal vault. Please refer to his note for complete detail of his procedure.
[2020-04-11] MEDS: PANTOPRAZOLE SODIUM 40 MG VIAL IV SCH (22:32)
--- NOTE | 2020-04-11 23:54 | Operative Report ---
Operative Report DATE OF SURGERY: 04/11/20 PREOPERATIVE DIAGNOSIS: Rectal bleeding POSTOPERATIVE DIAGNOSIS: Same OPERATION: Rigid sigmoidoscopy and packing of the rectal area with 4 x 4 covered with Gelfoam with thrombin SURGEON: TIO EL ANESTHESIA: Moderate Sedation TISSUE REMOVED OR ALTERED: None COMPLICATIONS: None ESTIMATED BLOOD LOSS: 150 cc QUANTITATIVE BLOOD LOSS: 150 INTRAOPERATIVE FINDINGS: There is fleshy soft mass at the tip of the index finger on rectal exam. Unable to identify definite bleeding site rigid sigmoidoscopy since here insufflation of the rectum immediately goes out of the colostomy. PROCEDURE: Patient started bleeding tonight from the rectum. Patient on Eliquis with the last dose this morning. His coagulation numbers are within normal limits. Because of this an attempt to identify the bleeding site with a rigid sigmoid oscope is being performed. Patient was given IV Ativan prior to the procedure. Consent was then obtained from his . A rectal exam was done there appears to be a fleshy mass at the tip of the index finger. The rigid sigmoidoscope was then passed to a distance of about 12 to 15cm. Unfortunately was not able to distend the rest of the rectum since there is gas easily goes out of the colostomy. There appears to be some blood on the surface of the rectum around the 12 to 15 cm site. At this point Surgicel soaked in thrombin was attempted to be passed through the scope. Unfortunately while trying to remove the scope there was a gush of 150 cc of blood clot pushing out the Gelfoam. Since I was unable to inflate the rectum I bluntly back the area with four4 x 4 partially covered with Gelfoam soaked in thrombin and with a little Surgicel. The rectal area was packed beyond the 7 cm jessica in the close to the anal verge using at least 2 packs of 4 x 4 with thrombin. Ice pack the area nicely appears to have controlled the bleeding. I checked the patient about an hour later and it appears that there is no active bleeding noted in the colostomy did not fill up with the blood. Unfortunately we do not have an antidote for the Eliquis available in the hospital. At any rate patient was given Kcentra. Patient to be transfused with packed RBCs. Patient tolerated procedure well.
[2020-04-12] MEDS: MEROPENEM 1 GM in NORMAL SALINE 50 ML IV SCH ×2 (02:24→09:46)
[2020-04-12 02:49] LABS: ALKALINE PHOSPHATASE 85 U/L (38-126); ANION GAP 6 (5-19); ASPARTATE AMINO TRANSFERASE 27 U/L (17-59); BILIRUBIN,DIRECT 0.6 mg/dL (0.0-0.4); BLOOD UREA NITROGEN 43 mg/dL (7-20); CALCIUM 7.8 mg/dL (8.4-10.2); CARBON DIOXIDE 26 mmol/L (22-30); CHLORIDE 105 mmol/L (98-107); GLUCOSE 108 mg/dL (75-110); POTASSIUM 3.5 mmol/L (3.6-5.0); TOTAL PROTEIN 4.4 g/dL (6.3-8.2)
[2020-04-12 02:53] LABS: HEMOGLOBIN 10.1 g/dL (13.5-17.0); MEAN CORPUSCULAR HEMOGLOBIN 29.7 pg (27.0-33.4); MEAN CORPUSCULAR HGB CONC 33.6 g/dL (32.0-36.0); MEAN CORPUSCULAR VOLUME 88 fl (80-97); PLATELET COUNT 229 10^3/uL (150-450); RED CELL DISTRIBUTION WIDTH 16.8 % (11.5-14.0); WHITE BLOOD COUNT 12.3 10^3/uL (4.0-10.5)
[2020-04-12] MEDS: POTASSI CL 20 MEQ/50 ML RIDER 20 MEQ/50 ML RTUPB IV SCH ×2 (07:30→09:43)
[2020-04-12] MEDS: CITALOPRAM HYDROBROMIDE 20 MG TABLET NG SCH (09:43)
[2020-04-12] MEDS: HYDRALAZINE HCL 25 MG TABLET NG SCH ×2 (09:43→22:53)
[2020-04-12] MEDS: NYSTATIN TOPICAL POWDER 15 GM TP SCH (09:43)
[2020-04-12] MEDS: AMINO AC/PROTEIN HYDR/WHEY PRO 11 GM/45 ML PKT NG SCH ×3 (09:44→17:24)
[2020-04-12] MEDS: COLLAGENASE CLOSTRIDIUM HIST. OINT 30 GM TOP SCH (09:44)
[2020-04-12] MEDS: CALCITRIOL 1 MCG/ML ORAL SOLN 15 ML NG SCH (09:44)
[2020-04-12] MEDS: CHOLECALCIFEROL (D3) 1,000 UNIT (25 MCG) TABLET NG SCH ×3 (09:45→17:24)
[2020-04-12] MEDS: HYDROMORPHONE HCL INJ/PF 2 MG/ML AMPULE IV PRN ×2 (10:36→17:22)
[2020-04-12] MEDS: PANTOPRAZOLE SODIUM 40 MG VIAL IV SCH ×2 (10:37→22:57)
--- NOTE | 2020-04-12 11:12 | PDOC CRITICAL CARE PROG REPORT ---
General Date:: 04/12/20 Resuscitation Status: Full Code Events in the past 12 to 24 Hours:: LGI bleeding. Now stopped. Review of systems relevant to events:: Neurological, renal, GI. Reason for ICU Addmission:: Ready for LTAC. - Medications: Medications reviewed and adjusted accordingly: Yes Vasopressors:: None Sedation:: None Physical Exam Vital Signs: Temp Pulse Resp BP Pulse Ox 96.8 F L 103 H 16 136/62 H 99 04/12/20 08:08 04/12/20 10:00 04/12/20 10:00 04/12/20 10:00 04/12/20 10:00 Pulse Oximeter Nocturnal Start: 02/08/20 13 :55 Freq: RTQ4 Status: Complete Protocol: Document 02/09/20 04:00 LRO (Rec: 02/09/20 05:38 LRO [id number]) Nocturnal Pulse Oximetry Equipment Usage Equipment in Use Oxygen Delivery Method (includes room Room Air air) O2 Sat by Pulse Oximetry (92-100) 95 Continuous SpO2 Machine # 2 Pulse Oximeter Nocturnal Start: 02/10/20 11:39 Freq: RTQ4 Status: Complete Protocol: Document 02/11/20 04:06 PMU (Rec: 02/11/20 05:06 PMU [email or web address]) Nocturnal Pulse Oximetry Equipment Usage Equipment in Use Oxygen Delivery Method (includes room Room Air air) O2 Sat by Pulse Oximetry (92-100) 93 Continuous SpO2 Machine # N2 Intake & Output 04/11/20 04/12/20 04/13/20 06:59 06:59 06:59 Intake Total 150 2441 50 Output Total 610 285 0 Balance -460 2156 50 Weight 101 kg 98.3 kg Weight/Height Weight 98.3 kg Height 5 ft 9 in General appearance: PRESENT: no acute distress, cooperative Head exam: PRESENT: atraumatic, normocephalic Eye exam: PRESENT: conjunctiva pink, EOMI, PERRLA. ABSENT: scleral icterus Ear exam: PRESENT: normal external ear exam Mouth exam: PRESENT: moist, tongue midline Neck exam: PRESENT: tracheostomy Respiratory exam: PRESENT: clear to auscultation kevyn. ABSENT: rales, rhonchi, wheezes Cardiovascular exam: PRESENT: RRR, tachycardia. ABSENT: diastolic murmur, rubs, systolic murmur GI/Abdominal exam: PRESENT: normal bowel sounds, soft, other - PEG site clean, loop colostomy functional with only a small amount of blood.. ABSENT: distended, guarding, mass, organolmegaly, rebound, tenderness Rectal exam: PRESENT: bloody stool - Nothing this AM Extremities exam: PRESENT: +2 edema - Decubiti on heels, side of L leg. Neurological exam: PRESENT: alert, awake, CN II-XII grossly intact, other - Very weak Psychiatric exam: PRESENT: appropriate affect, normal mood. ABSENT: homicidal ideation, suicidal ideation Skin exam: PRESENT: other - Large decubitus on sacrum that now has wound vac per surgery. Tubes/Lines: PRESENT: Dialysis catheter, Peg Tube, Other - Trach Laboratory/Radiographs Laboratory Results: 04/12/20 02:20 04/12/20 02:20 04/11/20 04/11/20 04/11/20 19:20 19:20 19:20 WBC 13.1 H RBC 2.77 L Hgb 8.1 L Hct 25.0 L MCV 90 MCH 29.3 MCHC 32.6 RDW 18.3 H Plt Count 257 Seg Neutrophils % 77.4 Sodium 136.5 L Potassium 3.2 L Chloride 101 Carbon Dioxide 28 Anion Gap 8 BUN 44 H Creatinine 1.44 H Est GFR ( Amer) 58 L Glucose 126 H Calcium 8.1 L Magnesium 1.8 Total Bilirubin 0.7 AST 25 Alkaline Phosphatase 108 Total Protein 4.7 L Albumin 2.1 L Blood Type Antibody Screen 04/11/20 04/12/20 04/12/20 19:35 02:20 02:20 WBC 12.3 H RBC 3.40 L Hgb 10.1 L Hct 30.0 L MCV 88 MCH 29.7 MCHC 33.6 RDW 16.8 H Plt Count 229 Seg Neutrophils % Sodium 136.6 L Potassium 3.5 L Chloride 105 Carbon Dioxide 26 Anion Gap 6 BUN 43 H Creatinine 1.45 H Est GFR ( Amer) 58 L Glucose 108 Calcium 7.8 L Magnesium Total Bilirubin 1.0 AST 27 Alkaline Phosphatase 85 Total Protein 4.4 L Albumin 2.0 L Blood Type O POSITIVE Antibody Screen NEGATIVE 02/08/20 02/08/20 02/21/20 09:49 13:11 04:50 Troponin I 0.160 0.155 NT-Pro-B Natriuret Pep 5540 H 43129 H 02/26/20 03/09/20 03/20/20 05:35 04:00 06:10 Troponin I NT-Pro-B Natriuret Pep 51360 H 72922 H 71107 H Impressions: Hip/Pelvis X-Ray 02/08/20 00:00 IMPRESSION: No acute fracture. Severe degenerative changes of the left hip. Knee X-Ray 02/08/20 00:00 IMPRESSION: NEGATIVE STUDY OF THE RIGHT KNEE. NO RADIOGRAPHIC EVIDENCE OF ACUTE INJURY. Renal Ultrasound 02/21/20 00:00 IMPRESSION: Increased echogenicity of the renal parenchyma suggestive of underlying chronic medical renal disease. There is no hydronephrosis. There is a Ryan catheter within the urinary bladder. Head CT 03/08/20 08:56 IMPRESSION: MILD CHRONIC CHANGES OF ATROPHY AND MICROVASCULAR ISCHEMIA. NO ACUTE PROCESS. EVIDENCE OF ACUTE STROKE: NO. Chest CT 03/08/20 10:12 IMPRESSION: Extensive bilateral infiltrates. No pneumothorax. KUB X-Ray 04/01/20 00:00 IMPRESSION: NG tube as described. Guidance Fluoroscopy 04/08/20 00:00 IMPRESSION: IMAGE(S) OBTAINED DURING PROCEDURE. Chest X-Ray 04/11/20 05:00 IMPRESSION: No change from yesterday All labs, radiographs, diagnostic studies and EKGs were personally reviewed: Yes In addition, reports of radiographic and diagnostic studies were read: Yes Assessment and Plan - Diagnosis (1) Polyneuropathy associated with critical illness Is this a current diagnosis for this admission?: Yes Plan: Still weak. Needs extensive rehab. (2) Osteomyelitis Qualifiers: Osteomyelitis type: other chronic Osteomyelitis location: other site Qualified Code(s): M86.68 - Other chronic osteomyelitis, other site Is this a current diagnosis for this admission?: Yes Plan: From decubitius. Continue antibiotics and local care. This will take a long time to heal. (3) CKD (chronic kidney disease) stage 5, GFR less than 15 ml/min Is this a current diagnosis for this admission?: Yes Plan: HD on m,w,f. (4) Acute on chronic diastolic CHF (congestive heart failure) Is this a current diagnosis for this admission?: Yes Plan: He has whethered his LGI bleed and transfusion well with evidence of CHF. (5) Coronary artery disease Qualifiers: Coronary Disease-Associated Artery/Lesion type: unspecified vessel or lesion type [place] vs. transplanted heart: [place] heart Associated angina: with unspecified angina Qualified Code(s): I25.119 - Atherosclerotic heart disease of [place] coronary artery with unspecified angina pectoris Is this a current diagnosis for this admission?: Yes Plan: Inactive (6) Obesity (BMI 30-39.9) Is this a current diagnosis for this admission?: Yes Plan: Chronic (7) Anemia Qualifiers: Anemia type: iron deficiency Is this a current diagnosis for this admission?: Yes Plan: Hgh 10.1 with transfusion. (8) HTN (hypertension) Qualifiers: Hypertension type: essential hypertension Qualified Code(s): I10 - [place] l (primary) hypertension Is this a current diagnosis for this admission?: Yes Plan: Controlled. (9) LGI bleed Is this a current diagnosis for this admission?: Yes Plan: He had a LGI bleed last night with no obvious bleeding site by Dr. Pineda performing a rigid sigmoidoscope. Packed with gauze and gel foam. In his age category most likely diverticular. No recurrence. Off eliquis for now. Hgb stable after transfusion at 10.1. Plan Summary: If no further bleeding leave off Eliquis for a week and he still can be transferred to LTAC Monday if still stable. Critical Time Critical Time (minutes): 35 Level of Care: IMCU Anticipated discharge: Other - LTAC Anticipated DC Timeframe: within 24 hours -: 1. The care of a critical patient is a dynamic process. This note is a passenger representative synopsis but static in nature. The timeframe for treatments given in order is not necessarily the actual time these treatments may have been done. 2. This patient requires critical care secondary to ongoing requirements for therapy not offered or safe outside the critical care environment. Transfer to a lower level of care will result in altered life or limb morbidity and mortality. 3. Multidisciplinary rounds completed. 4. ABCDE bundle addressed.
--- NOTE | 2020-04-12 13:04 | PDOC PROGRESS REPORT ---
Subjective Progress Note for:: 04/12/20 Subjective:: Patient now well responsive today compared to yesterday but appears awake and no apparent complaints or denies any pains Reason For Visit: WEAKNESS,ELEVATED TROPONIN,CHF Physical Exam Vital Signs: Temp Pulse Resp BP Pulse Ox 96.4 F L 109 H 16 153/59 H 100 04/12/20 12:00 04/12/20 12:00 04/12/20 12:00 04/12/20 12:00 04/12/20 12:00 Pulse Oximeter Nocturnal Start: 02/08/20 13:55 Freq: RTQ4 Status: Complete Protocol: Document 02/09/20 04:00 LRO (Rec: 02/09/20 05:38 LRO [id number]) Nocturnal Pulse Oximetry Equipment Usage Equipment in Use Oxygen Delivery Method (includes room Room Air air) O2 Sat by Pulse Oximetry (92-100) 95 Continuous SpO2 Machine # 2 Pulse Oximeter Nocturnal Start: 02/10/20 11:39 Freq: RTQ4 Status: Complete Protocol: Document 02/11/20 04:06 PMU (Rec: 02/11/20 05:06 PMU [email or web address]) Nocturnal Pulse Oximetry Equipment Usage Equipment in Use Oxygen Delivery Method (includes room Room Air air) O2 Sat by Pulse Oximetry (92-100) 93 Continuous SpO2 Machine # N2 Intake & Output 04/11/20 04/12/20 04/13/20 06:59 06:59 06:59 Intake Total 150 2441 150 Output Total 610 285 0 Balance -460 2156 150 Weight 101 kg 98.3 kg Exam: Colostomy has small amount of serosanguineous fluid. The rectum has small amount of clots that was noted by the nurses and they are not able to put a wo und VAC because of the packing interfering with the wound VAC today. Results Laboratory Results: 04/12/20 02:20 04/12/20 02:20 04/11/20 04/11/20 04/11/20 19:20 19:20 19:20 WBC 13.1 H RBC 2.77 L Hgb 8.1 L Hct 25.0 L MCV 90 MCH 29.3 MCHC 32.6 RDW 18.3 H Plt Count 257 Seg Neutrophils % 77.4 Sodium 136.5 L Potassium 3.2 L Chloride 101 Carbon Dioxide 28 Anion Gap 8 BUN 44 H Creatinine 1.44 H Est GFR ( Amer) 58 L Glucose 126 H Calcium 8.1 L Magnesium 1.8 Total Bilirubin 0.7 AST 25 Alkaline Phosphatase 108 Total Protein 4.7 L Albumin 2.1 L Blood Type Antibody Screen 04/11/20 04/12/20 04/12/20 19:35 02:20 02:20 WBC 12.3 H RBC 3.40 L Hgb 10.1 L Hct 30.0 L MCV 88 MCH 29.7 MCHC 33.6 RDW 16.8 H Plt Count 229 Seg Neutrophils % Sodium 136.6 L Potassium 3.5 L Chloride 105 Carbon Dioxide 26 Anion Gap 6 BUN 43 H Creatinine 1.45 H Est GFR ( Amer) 58 L Glucose 108 Calcium 7.8 L Magnesium Total Bilirubin 1.0 AST 27 Alkaline Phosphatase 85 Total Protein 4.4 L Albumin 2.0 L Blood Type O POSITIVE Antibody Screen NEGATIVE 02/08/20 02/08/20 02/21/20 09:49 13:11 04:50 Troponin I 0.160 0.155 NT-Pro-B Natriuret Pep 5540 H 56051 H 02/26/20 03/09/20 03/20/20 05:35 04:00 06:10 Troponin I NT-Pro-B Natriuret Pep 09189 H 55232 H 99264 H Impressions: Hip/Pelvis X-Ray 02/08/20 00:00 IMPRESSION: No acute fracture. Severe degenerative changes of the left hip. Knee X-Ray 02/08/20 00:00 IMPRESSION: NEGATIVE STUDY OF THE RIGHT KNEE. NO RADIOGRAPHIC EVIDENCE OF ACUTE INJURY. Renal Ultrasound 02/21/20 00:00 IMPRESSION: Increased echogenicity of the renal parenchyma suggestive of underlying chronic medical renal disease. There is no hydronephrosis. There is a Ryan catheter within the urinary bladder. Head CT 03/08/20 08:56 IMPRESSION: MILD CHRONIC CHANGES OF ATROPHY AND MICROVASCULAR ISCHEMIA. NO ACUTE PROCESS. EVIDENCE OF ACUTE STROKE: NO. Chest CT 03/08/20 10:12 IMPRESSION: Extensive bilateral infiltrates. No pneumothorax. KUB X-Ray 04/01/20 00:00 IMPRESSION: NG tube as described. Guidance Fluoroscopy 04/08/20 00:00 IMPRESSION: IMAGE(S) OBTAINED DURING PROCEDURE. Chest X-Ray 04/11/20 05:00 IMPRESSION: No change from yesterday Assessment & Plan - Diagnosis (1) Acute on chronic combined systolic (congestive) and diastolic (congestive) heart failure Is this a current diagnosis for this admission?: Yes (2) Decubitus ulcer of sacral region, unstageable Is this a current diagnosis for this admission?: Yes (3) HTN (hypertension) Qualifiers: Hypertension type: essential hypertension Qualified Code(s): I10 - Essential (primary) hypertension Is this a current diagnosis for this admission?: Yes (4) Hyperglycemia Is this a current diagnosis for this admission?: Yes (5) Osteomyelitis Qualifiers: Osteomyelitis type: other chronic Osteomyelitis location: other site Qualified Code(s): M86.68 - Other chronic osteomyelitis, other site Is this a current diagnosis for this admission?: Yes (6) Sacral decubitus ulcer Is this a current diagnosis for this admission?: Yes (7) Acute respiratory failure with hypoxia Is this a current diagnosis for this admission?: Yes (8) Obesity (BMI 30-39.9) Is this a current diagnosis for this admission?: Yes - Time Critical Time spent with patient: 15-24 minutes Anticipated Discharge Disposition: Long-Term Facility Anticipated Discharge Timeframe: when bed available - Inpatient Certification Medical Necessity: Need For IV Fluids, Need For Continuous Telemetry Monitoring, Need for IV Antibiotics - Plan Summary Plan Summary: 70-year-old male who had a previous trach, PEG tube and diverting loop colostomy for wide and deep decubitus sacral ulcer. Patient on Eliquis for atrial fibrillation and last dose was yesterday morning but developed rectal bleed last night and was able to pack the rectal area with 4 x 4 partially covered with Gelfoam and thrombin. He had 2 units of packed cells yesterday with a hemoglobin fairly stable this morning. We plan on removing the packing at the rectal side tomorrow morning. Patient did have possible fleshy growth on the rectal area on palpation which may be the one causing the bleeding. Tomorrow will be about 48 hours post intake of Eliquis and hopefully his bleeding will be better controlled when the packings are removed
[2020-04-12] MEDS ORDERED: LEVALBUTEROL HCL NEB 1.25 MG/3 ML AMPUL NEB PRN (18:03)
[2020-04-12] MEDS ORDERED: AMOXICILLIN TR/POT CLAVULANATE 875-125 MG TAB PO ONE (22:45)
[2020-04-13 04:57] LABS: ABSOLUTE BASOPHILS # (AUTO) 0.1 10^3/uL (0.0-0.2); ABSOLUTE EOSINOPHILS # (AUTO) 0.4 10^3/uL (0.0-0.6); ABSOLUTE LYMPHOCYTES (AUTO) 1.9 10^3/uL (0.5-4.7); ABSOLUTE NEUT (AUTO) 8.1 10^3/uL (1.7-8.2); BASOPHILS % (AUTO) 0.5 % (0-2); EOSINOPHILS % (AUTO) 3.5 % (0-6); HEMATOCRIT 23.9 % (37.9-51.0); HEMOGLOBIN 8.2 g/dL (13.5-17.0); LYMPHOCYTES % (AUTO) 16.3 % (13-45); MEAN CORPUSCULAR HEMOGLOBIN 30.3 pg (27.0-33.4); MEAN CORPUSCULAR HGB CONC 34.2 g/dL (32.0-36.0); MEAN CORPUSCULAR VOLUME 88 fl (80-97); MONOCYTES % (AUTO) 8.9 % (3-13); PLATELET COUNT 227 10^3/uL (150-450); RED BLOOD COUNT 2.71 10^6/uL (4.35-5.55); RED CELL DISTRIBUTION WIDTH 16.9 % (11.5-14.0); SEGMENTED NEUTROPHILS % (AUTO) 70.8 % (42-78); TOTAL CELLS COUNTED % (AUTO) 100 %; WHITE BLOOD COUNT 11.4 10^3/uL (4.0-10.5)
[2020-04-13] MEDS ORDERED: HEPARIN SOD (PORCINE) 1,000 UNIT/ML 10 ML VIAL IV PRN (05:00)
[2020-04-13] MEDS ORDERED: NORMAL SALINE 1000 ML 1,000 ML IV PRN (05:00)
[2020-04-13] MEDS ORDERED: EPOETIN ALFA-EPBX 10,000 UNIT in SYRINGE, DISPOSABLE, 1 EACH IV PRN (05:00)
[2020-04-13 05:15] LABS: ANION GAP 9 (5-19); BLOOD UREA NITROGEN 53 mg/dL (7-20); CALCIUM 8.2 mg/dL (8.4-10.2); CARBON DIOXIDE 23 mmol/L (22-30); CHLORIDE 106 mmol/L (98-107); GLUCOSE 102 mg/dL (75-110); POTASSIUM 3.8 mmol/L (3.6-5.0)
[2020-04-13 06:08] LABS: APPEARANCE,URINE CLOUDY; BILIRUBIN,URINE NEGATIVE (NEGATIVE); COLOR,URINE AMBER; GLUCOSE, URINE 50 mg/dL (NEGATIVE); KETONES,URINE NEGATIVE (NEGATIVE); LEUKOCYTE ESTERASE,URINE MODERATE (NEGATIVE); NITRITE,URINE NEGATIVE (NEGATIVE); PROTEIN,URINE 100 mg/dL (NEGATIVE); URINE SPECIFIC GRAVITY 1.028
--- NOTE | 2020-04-13 07:55 | PDOC PROGRESS REPORT ---
Subjective Progress Note for:: 04/13/20 Subjective:: Still on the vent and appears comfortable Reason For Visit: WEAKNESS,ELEVATED TROPONIN,CHF Physical Exam Vital Signs: Temp Pulse Resp BP Pulse Ox 100.2 F 120 H 22 H 147/62 H 100 04/13/20 06:00 04/12/20 20:00 04/13/20 06:00 04/13/20 05:32 04/13/20 06:00 Pulse Oximeter Nocturnal Start: 02/08/20 13:55 Freq: RTQ4 Status: Complete Protocol: Document 02/09/20 04:00 LRO (Rec: 02/09/20 05:38 LRO [id number]) Nocturnal Pulse Oximetry Equipment Usage Equipment in Use Oxygen Delivery Method (includes room Room Air air) O2 Sat by Pulse Oximetry (92-100) 95 Continuous SpO2 Machine # 2 Pulse Oximeter Nocturnal Start: 02/10/20 11:39 Freq: RTQ4 Status: Complete Protocol: Document 02/11/20 04:06 PMU (Rec: 02/11/20 05:06 PMU [email or web address]) Nocturnal Pulse Oximetry Equipment Usage Equipment in Use Oxygen Delivery Method (includes room Room Air air) O2 Sat by Pulse Oximetry (92-100) 93 Continuous SpO2 Machine # N2 Intake & Output 04/12/20 04/13/20 04/14/20 06:59 06:59 06:59 Intake Total 2441 933 Output Total 285 225 Balance 2156 708 Weight 98.3 kg 109.4 kg Exam: 4 rectal packings which were 4x4S partially covered with srgifoam soaked in thrombin were just removed being 48 hrs off Eliquis. No bleeding noted post removal of packings. Results Laboratory Results: 04/13/20 04:30 04/13/20 04:30 04/13/20 04/13/20 04/13/20 04:30 04:30 05:15 WBC 11.4 H RBC 2.71 L Hgb 8.2 L Hct 23.9 L MCV 88 MCH 30.3 MCHC 34.2 RDW 16.9 H Plt Count 227 Seg Neutrophils % 70.8 Sodium 137.9 Potassium 3.8 Chloride 106 Carbon Dioxide 23 Anion Gap 9 BUN 53 H Creatinine 1.81 H Est GFR ( Amer) 45 L Glucose 102 Calcium 8.2 L Urine Color LEISA Urine Appearance CLOUDY Urine pH 5.0 Ur Specific [place] 1.028 Urine Protein 100 H Urine Glucose (UA) 50 H Urine Ketones NEGATIVE Urine Blood SMALL H Urine Nitrite NEGATIVE Ur Leukocyte Esterase MODERATE H Urine WBC (Auto) 133 Urine RBC (Auto) 32 02/08/20 02/08/20 02/21/20 09:49 13:11 04:50 Troponin I 0.160 0.155 NT-Pro-B Natriuret Pep 5540 H 52367 H 02/26/20 03/09/20 03/20/20 05:35 04:00 06:10 Troponin I NT-Pro-B Natriuret Pep 90271 H 26312 H 51578 H Impressions: Hip/Pelvis X-Ray 02/08/20 00:00 IMPRESSION: No acute fracture. Severe degenerative changes of the left hip. Knee X-Ray 02/08/20 00:00 IMPRESSION: NEGATIVE STUDY OF THE RIGHT KNEE. NO RADIOGRAPHIC EVIDENCE OF ACUTE INJURY. Renal Ultrasound 02/21/20 00:00 IMPRESSION: Increased echogenicity of the renal parenchyma suggestive of underlying chronic medical renal disease. There is no hydronephrosis. There is a Ryan catheter within the urinary bladder. Head CT 03/08/20 08:56 IMPRESSION: MILD CHRONIC CHANGES OF ATROPHY AND MICROVASCULAR ISCHEMIA. NO ACUTE PROCESS. EVIDENCE OF ACUTE STROKE: NO. Chest CT 03/08/20 10:12 IMPRESSION: Extensive bilateral infiltrates. No pneumothorax. KUB X-Ray 04/01/20 00:00 IMPRESSION: NG tube as described. Guidance Fluoroscopy 04/08/20 00:00 IMPRESSION: IMAGE(S) OBTAINED DURING PROCEDURE. Chest X-Ray 04/11/20 05:00 IMPRESSION: No change from yesterday Assessment & Plan - Diagnosis (1) Acute on chronic combined systolic (congestive) and diastolic (congestive) heart failure Is this a current diagnosis for this admission?: Yes (2) Decubitus ulcer of sacral region, unstageable Is this a current diagnosis for this admission?: Yes (3) HTN (hypertension) Qualifiers: Hypertension type: essential hypertension Qualified Code(s): I10 - Essential (primary) hypertension Is this a current diagnosis for this admission?: Yes (4) Hyperglycemia Is this a current diagnosis for this admission?: Yes (5) Osteomyelitis Qualifiers: Osteomyelitis type: other chronic Osteomyelitis location: other site Qu alified Code(s): M86.68 - Other chronic osteomyelitis, other site Is this a current diagnosis for this admission?: Yes (6) Sacral decubitus ulcer Is this a current diagnosis for this admission?: Yes (7) Acute respiratory failure with hypoxia Is this a current diagnosis for this admission?: Yes (8) Obesity (BMI 30-39.9) Is this a current diagnosis for this admission?: Yes - Time Critical Time spent with patient: 15-24 minutes Anticipated Discharge Disposition: Snf Facility Anticipated Discharge Timeframe: 2-3 weeks - Inpatient Certification Medical Necessity: Need Close Monitoring Due to Risk of Patient Decompensation, Need For Continuous Telemetry Monitoring - Plan Summary Plan Summary: 70 yo male post Trach,Peg tube,Diverting loop colostomy had a rectal bleeding episode 04/11/20 about 12 hrs after Eliquis dose. Had 2 units PRBCs and packing of rectum which appears to have stopped the bleeding. Unable to identify bleeding site 04/11/20 because unable to distend rectosigmoid with a rigid scope. Air insufflation goes directly out of colostomy. Rectal exam at that time may have a fleshy mass at end of index finger and blindly packed this area which appears to have stopped the bleeding. For placement of wound Vac to large sacral decubitus.
[2020-04-13] MEDS: CITALOPRAM HYDROBROMIDE 20 MG TABLET NG SCH (09:58)
[2020-04-13] MEDS: HYDROMORPHONE HCL INJ/PF 2 MG/ML AMPULE IV PRN ×2 (09:58→15:49)
[2020-04-13] MEDS: CHOLECALCIFEROL (D3) 1,000 UNIT (25 MCG) TABLET NG SCH ×3 (09:58→18:45)
[2020-04-13] MEDS: PANTOPRAZOLE SODIUM 40 MG VIAL IV SCH ×2 (09:58→21:51)
[2020-04-13] MEDS: HYDRALAZINE HCL 25 MG TABLET NG SCH ×2 (09:58→21:51)
[2020-04-13] MEDS: CALCITRIOL 1 MCG/ML ORAL SOLN 15 ML NG SCH (09:59)
[2020-04-13] MEDS: AMINO AC/PROTEIN HYDR/WHEY PRO 11 GM/45 ML PKT NG SCH ×3 (09:59→18:45)
[2020-04-13] MEDS: COLLAGENASE CLOSTRIDIUM HIST. OINT 30 GM TOP SCH (09:59)
[2020-04-13] MEDS ORDERED: NYSTATIN TOPICAL POWDER 15 GM TP SCH (10:30)
[2020-04-13] MEDS: NYSTATIN TOPICAL POWDER 15 GM TP SCH ×2 (10:45→21:58)
--- NOTE | 2020-04-13 16:22 | PDOC PROGRESS REPORT ---
Subjective Progress Note for:: 04/13/20 Subjective:: I am seeing the patient during dialysis this morning. He is hemodynamically stable and is tolerating dialysis well. Events over the weekend reviewed. Patient had rectal bleeding requiring 2 units of packed RBC blood transfusion and rectal packing by general surgery. Dr. Pineda of surgery is following the patient. He is unable to verbalize complaints but when asked if is doing okay, he nods presumably a yes answer. Transfer to LT has been held last Monday unfortunately. Reason For Visit: WEAKNESS,ELEVATED TROPONIN,CHF Physical Exam Vital Signs: Temp Pulse Resp BP Pulse Ox 99.3 F 120 H 18 135/66 H 100 04/13/20 08:24 04/12/20 20:00 04/13/20 08:24 04/13/20 08:24 04/13/20 08:24 Pulse Oximeter Nocturnal Start: 02/08/20 13:55 Freq: RTQ4 Status: Complete Protocol: Document 02/09/20 04:00 LRO (Rec: 02/09/20 05:38 LRO [email or web address]) Nocturnal Pulse Oximetry Equipment Usage Equipment in Use Oxygen Delivery Method (includes room Room Air air) O2 Sat by Pulse Oximetry (92-100) 95 Continuous SpO2 Machine # 2 Pulse Oximeter Nocturnal Start: 02/10/20 11:39 Freq: RTQ4 Status: Complete Protocol: Document 02/11/20 04:06 PMU (Rec: 02/11/20 05:06 PMU [email or web address]) Nocturnal Pulse Oximetry Equipment Usage Equipment in Use Oxygen Delivery Method (includes room Room Air air) O2 Sat by Pulse Oximetry (92-100) 93 Continuous SpO2 Machine # N2 Intake & Output 04/12/20 04/13/20 04/14/20 06:59 06:59 06:59 Intake Total 2441 933 Output Total 285 225 0 Balance 2156 708 0 Weight 98.3 kg 109.4 kg Vitals during dialysis: Blood pressure 154/64, heart rate of 117, oxygen saturation 100% on trach collar, respiration of 20. Blood flow rate on dialysis 350 mL/min and dialysate flow rate of 800 mL/min. Exam: General appearance: PRESENT: Comfortable on trach collar Head exam: PRESENT: atraumatic, normocephalic Eye exam: PRESENT: conjunctiva pale, PERRLA. ABSENT: scleral icterus Neck exam: ABSENT: JVD Respiratory exam: PRESENT: Diminished breath sounds. ABSENT: crackles, rales, rhonchi, unlabored, wheezes Cardiovascular exam: PRESENT: Irregularly irregular rate rhythm -+S1, +S2. ABSENT: diastolic murmur, systolic murmur GI/Abdominal exam: PRESENT: normal bowel sounds, soft. ABSENT: guarding, mass, tenderness Extremities exam: Bilateral trace ankle edema Neurological exam: PRESENT: alert, awake, responds by nodding. Skin exam: PRESENT: dry, warm, pallor Cardiovascular exam: PRESENT: +S1, +S2 GI/Abdominal exam: PRESENT: normal bowel sounds, soft. ABSENT: organomegaly, tenderness Results Laboratory Results: 04/13/20 04:30 04/13/20 04:30 04/13/20 04/13/20 04/13/20 04:30 04:30 05:15 WBC 11.4 H RBC 2.71 L Hgb 8.2 L Hct 23.9 L MCV 88 MCH 30.3 MCHC 34.2 RDW 16.9 H Plt Count 227 Seg Neutrophils % 70.8 Sodium 137.9 Potassium 3.8 Chloride 106 Carbon Dioxide 23 Anion Gap 9 BUN 53 H Creatinine 1.81 H Est GFR ( Amer) 45 L Glucose 102 Calcium 8.2 L Urine Color LEISA Urine Appearance CLOUDY Urine pH 5.0 Ur Specific [place] 1.028 Urine Protein 100 H Urine Glucose (UA) 50 H Urine Ketones NEGATIVE Urine Blood SMALL H Urine Nitrite NEGATIVE Ur Leukocyte Esterase MODERATE H Urine WBC (Auto) 133 Urine RBC (Auto) 32 02/08/20 02/08/20 02/21/20 09:49 13:11 04:50 Troponin I 0.160 0.155 NT-Pro-B Natriuret Pep 5540 H 34472 H 02/26/20 03/09/20 03/20/20 05:35 04:00 06:10 Troponin I NT-Pro-B Natriuret Pep 82433 H 92403 H 22447 H Impressions: Hip/Pelvis X-Ray 02/08/20 00:00 IMPRESSION: No acute fracture. Severe degenerative changes of the left hip. Knee X-Ray 02/08/20 00:00 IMPRESSION: NEGATIVE STUDY OF THE RIGHT KNEE. NO RADIOGRAPHIC EVIDENCE OF ACUTE INJURY. Renal Ultrasound 02/21/20 00:00 IMPRESSION: Increased echogenicity of the renal parenchyma suggestive of underl [place] chronic medical renal disease. There is no hydronephrosis. There is a Ryan catheter within the urinary bladder. Head CT 03/08/20 08:56 IMPRESSION: MILD CHRONIC CHANGES OF ATROPHY AND MICROVASCULAR ISCHEMIA. NO ACUTE PROCESS. EVIDENCE OF ACUTE STROKE: NO. Chest CT 03/08/20 10:12 IMPRESSION: Extensive bilateral infiltrates. No pneumothorax. KUB X-Ray 04/01/20 00:00 IMPRESSION: NG tube as described. Guidance Fluoroscopy 04/08/20 00:00 IMPRESSION: IMAGE(S) OBTAINED DURING PROCEDURE. Chest X-Ray 04/11/20 05:00 IMPRESSION: No change from yesterday Assessment & Plan - Diagnosis (1) Acute kidney injury superimposed on chronic kidney disease Is this a current diagnosis for this admission?: Yes Plan: Patient is still anuric, requiring renal replacement therapy. Patient has ATN in the background of cardiomyopathy with ejection fraction of 25 to 30% and grade 3 diastolic dysfunction. Continue renal replacement therapy support. Patient will need to be re-evaluated for the next couple months to see if there will be any renal recovery. We will do dialysis today for 3.0 hours, using the patient's dialysis catheter, with 3 potassium bath, blood flow rate of 350 mL per minute, dialysate flow rate of 800 mL per minute, ultrafiltration 2.0 L as tolerated, no heparin and Retacrit with 10,000 units during dialysis intravenously. Patient is currently being monitored throughout dialysis treatment. Temporary dialysis catheter was removed last week. Catheter tip was positive for MSSA. Patient completed treatment with vancomycin and meropenem. PermCath placed and currently functional. (2) Decubitus ulcer of sacral region, unstageable Is this a current diagnosis for this admission?: Yes Plan: Status post surgical debridement couple of times. (3) LGI bleed Is this a current diagnosis for this admission?: Yes Plan: Acute rectal bleeding over the weekend requiring blood transfusion and rectal packing. Surgery following. (4) Hypocalcemia Is this a current diagnosis for this admission?: Yes Plan: Currently on calcitriol , and increased dose of vitamin D. Now within normal limits. (5) Anemia Qualifiers: Anemia type: iron deficiency Is this a current diagnosis for this admission?: Yes Plan: Acute blood loss after sacral decubitus debridement last 04/06/2020. Acute rectal bleeding 04/11/2020. Currently on Retacrit during dialysis. (6) Atrial fibrillation Qualifiers: Atrial fibrillation type: persistent (not longstanding) Qualified Code(s): I48.19 - Other persistent atrial fibrillation; I48.1 - Persistent atrial fibrillation Is this a current diagnosis for this admission?: Yes Plan: Previously on diltiazem and digoxin. Per director it. (7) Hypoalbuminemia Is this a current diagnosis for this admission?: Yes Plan: Chronic and persistent. Now receiving tube feedings via PEG tube. (8) Hyponatremia Is this a current diagnosis for this admission?: Yes Plan: Finally resolved and now within normal limits. (9) MRSA pneumonia Qualifiers: Laterality: bilateral Lung location: unspecified part of lung Qualified Code(s): J15.212 - Pneumonia due to Methicillin resistant Staphylococcus aureus Is this a current diagnosis for this admission?: Yes Plan: Completed treatment with cefepime and doxycycline. (10) Gram negative sepsis Is this a current diagnosis for this admission?: Yes Plan: Resolved. 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 (14) COVID-19 virus infection Is this a current diagnosis for this admission?: Yes Plan: Finally tested Covid negative on 03/30/2020. (15) Acute respiratory failure due to COVID-19 Is this a current diagnosis for this admission?: Yes Plan: Per director it. On trach collar now. - Time Time with patient: 15-25 minutes
--- NOTE | 2020-04-13 18:41 | PDOC CRITICAL CARE PROG REPORT ---
General Date:: 04/13/20 ICU Day:: 61 Hospital Day:: 65 Resuscitation Status: Full Code Events in the past 12 to 24 Hours:: This 69-year-old male was admitted on 02/08/2020 with dyspnea and leg weakness. He reported falling out of his truck a few days prior to presentation. He transferred to the ICU on 02/12/2020 after requiring endotr acheal intubation due to acute respiratory failure secondary to COVID-19 pneumonia. He has required prolonged mechanical ventilatory support and underwent tracheostomy on 03/11/2020. He also developed acute kidney injury, which has left him dialysis dependent at this point. He underwent PermCath p lacement on date. He also had percutaneous gastrostomy placement along with diverting colostomy. His hospitalization has been complicated by development of a gigantic stage IV sacral decubitus ulcer which has undergone multiple debridements. 04/13: Off Eliquis. Nursing staff reports that, over the weekend, the patient experienced what appeared to be lower GI bleed. This was evaluated by Dr. Pineda (general surgery). Flexible sigmoidoscopy failed to reveal a definite source. The patient's rectum was packed with gauze, which did provide hemostasis. He remained hemodynamically stable. Still in atrial fibrillation, rate controlled. Awake, alert. The patient's mood is considerably better than when I last saw him about a week ago. He is definitely more interactive. Answers yes/no appropriately and promptly. He is still certainly very weak. 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 His left hand and both lower extremities do not even appear to flicker on command. He had dialysis this morning. Case was discussed with Dr. Pineda. Currently, the patient is off antibiotics. Review of systems relevant to events:: Neurological, renal, GI. Reason for ICU Addmission:: Ready for LTAC. - Medications: Medications reviewed and adjusted accordingly: Yes Physical Exam Vital Signs: Temp Pulse Resp BP Pulse Ox 98.8 F 120 H 18 160/68 H 100 04/13/20 12:00 04/12/20 20:00 04/13/20 12:00 04/13/20 11:51 04/13/20 12:00 Pulse Oximeter Nocturnal Start: 02/08/20 13:55 Freq: RTQ4 Status: Complete Protocol: Document 02/09/20 04:00 LRO (Rec: 02/09/20 05:38 LRO [id number]) Nocturnal Pulse Oximetry Equipment Usage Equipment in Use Oxygen Delivery Method (includes room Room Air air) O2 Sat by Pulse Oximetry (92-100) 95 Continuous SpO2 Machine # 2 Pulse Oximeter Nocturnal Start: 02/10/20 11:39 Freq: RTQ4 Status: Complete Protocol: Document 02/11/20 04:06 PMU (Rec: 02/11/20 05:06 PMU [email or web address]) Nocturnal Pulse Oximetry Equipment Usage Equipment in Use Oxygen Delivery Method (includes room Room Air air) O2 Sat by Pulse Oximetry (92-100) 93 Continuous SpO2 Machine # N2 Intake & Output 04/12/20 04/13/20 04/14/20 06:59 06:59 06:59 Intake Total 2441 933 Output Total 171 874 0267 Balance 2155 Weight 98.3 kg 109.4 kg Weight/Height Weight 109.4 kg Height 1.75 m General appearance: PRESENT: no acute distress, other - Pale. Bulk atrophy Head exam: PRESENT: atraumatic, normocephalic Eye exam: PRESENT: conjunctiva pink, EOMI, PERRLA. ABSENT: scleral icterus Mouth exam: PRESENT: moist, tongue midline Neck exam: PRESENT: tracheostomy. ABSENT: carotid bruit, JVD, lymphadenopathy, thyromegaly Respiratory exam: PRESENT: clear to auscultation kevyn. ABSENT: rales, rhonchi, wheezes Cardiovascular exam: PRESENT: irregular rhythm. ABSENT: diastolic murmur, rubs, systolic murmur Pulses: PRESENT: normal dorsalis pedis pul Rectal exam: PRESENT: bloody stool, heme (+) stool Extremities exam: PRESENT: full ROM, pedal edema, +2 edema. ABSENT: calf tenderness, clubbing Neurological exam: PRESENT: alert, awake, CN II-XII grossly intact. ABSENT: reflexes normal, motor sensory deficit Skin exam: PRESENT: dry, pallor, rash - Intertriginous, warm, other - Stage IV sacral decubitus. ABSENT: cyanosis Tubes/Lines: PRESENT: Dialysis catheter, Peg Tube Laboratory/Radiographs Laboratory Results: 04/13/20 04:30 04/13/20 04:30 04/13/20 04/13/20 04/13/20 04:30 04:30 05:15 WBC 11.4 H RBC 2.71 L Hgb 8.2 L Hct 23.9 L MCV 88 MCH 30.3 MCHC 34.2 RDW 16.9 H Plt Count 227 Seg Neutrophils % 70.8 Sodium 137.9 Potassium 3.8 Chloride 106 Carbon Dioxide 23 Anion Gap 9 BUN 53 H Creatinine 1.81 H Est GFR ( Amer) 45 L Glucose 102 Calcium 8.2 L Urine Color LEISA Urine Appearance CLOUDY Urine pH 5.0 Ur Specific [place] 1.028 Urine Protein 100 H Urine Glucose (UA) 50 H Urine Ketones NEGATIVE Urine Blood SMALL H Urine Nitrite NEGATIVE Ur Leukocyte Esterase MODERATE H Urine WBC (Auto) 133 Urine RBC (Auto) 32 02/08/20 02/08/20 02/21/20 09:49 13:11 04:50 Troponin I 0.160 0.155 NT-Pro-B Natriuret Pep 5540 H 32371 H 02/26/20 03/09/20 03/20/20 05:35 04:00 06:10 Troponin I NT-Pro-B Natriuret Pep 42325 H 28983 H 57180 H Impressions: Hip/Pelvis X-Ray 02/08/20 00:00 IMPRESSION: No acute fracture. Severe degenerative changes of the left hip. Knee X-Ray 02/08/20 00:00 IMPRESSION: NEGATIVE STUDY OF THE RIGHT KNEE. NO RADIOGRAPHIC EVIDENCE OF ACUTE INJURY. Renal Ultrasound 02/21/20 00:00 IMPRESSION: Increased echogenicity of the renal parenchyma suggestive of underlying chronic medical renal disease. There is no hydronephrosis. There is a Ryan catheter within the urinary bladder. Head CT 03/08/20 08:56 IMPRESSION: MILD CHRONIC CHANGES OF ATROPHY AND MICROVASCULAR ISCHEMIA. NO ACUTE PROCESS. EVIDENCE OF ACUTE STROKE: NO. Chest CT 03/08/20 10:12 IMPRESSION: Extensive bilateral infiltrates. No pneumothorax. KUB X-Ray 04/01/20 00:00 IMPRESSION: NG tube as described. Guidance Fluoroscopy 04/08/20 00:00 IMPRESSION: IMAGE(S) OBTAINED DURING PROCEDURE. Chest X-Ray 04/11/20 05:00 IMPRESSION: No change from yesterday All labs, radiographs, diagnostic studies and EKGs were personally reviewed: Yes In addition, reports of radiographic and diagnostic studies were read: Yes Assessment and Plan - Diagnosis (1) Decubitus ulcer of sacral region, unstageable Is this a current diagnosis for this admission?: Yes Plan: * Present on admission. * Additionally, he has unstageable pressure ulcers on his lower extremities. * General surgery help appreciated. * Wound care service help appreciated. * status post diverting colostomy. (2) Polyneuropathy associated with critical illness Is this a current diagnosis for this admission?: Yes Plan: Still weak. Needs extensive rehab. (3) CKD (chronic kidney disease) stage 5, GFR less than 15 ml/min Is this a current diagnosis for this admission?: Yes Plan: HD on m,w,f. (4) Nonischemic cardiomyopathy Is this a current diagnosis for this admission?: Yes (5) Atrial fibrillation Qualifiers: Atrial fibrillation type: persistent (not longstanding) Qualified Code(s): I48.19 - Other persistent atrial fibrillation; I48.1 - Persistent atrial fibrillation Is this a current diagnosis for this admission?: Yes Plan: * Digoxin on hold. * Eliquis on hold for GI bleeding. (6) Vitamin D deficiency Is this a current diagnosis for this admission?: Yes (7) Hyponatremia Is this a current diagnosis for this admission?: Yes (8) Occult blood in stools Is this a current diagnosis for this admission?: Yes Plan: * Hold Eliquis. * Do not apply wound VAC to diverting colostomy. (9) Normocytic anemia Is this a current diagnosis for this admission?: Yes (10) Abnormal LFTs Is this a current diagnosis for this admission?: Yes (11) [place]Manuel respiration Is this a current diagnosis for this admission?: Yes (12) Gram negative sepsis Is this a current diagnosis for this admission?: Yes Plan: * Treated. Currently off antibiotics. * Secondary to wound infection/sacral decubitus, which is still isolating Pseudomonas aeruginosa, Enterobacter cloacae and MRSA. * Blood cultures (03/25) were noted to isolate Enterobacter species. (13) Acute respiratory failure due to COVID-19 Is this a current diagnosis for this admission?: Yes Plan: He finally tested negative on 03/30. Critical Time Critical Time (minutes): 60 Level of Care: ICU -: 1. The care of a critical patient is a dynamic process. This note is a rental sales representative synopsis but static in nature. The timeframe for treatments given in order is not necessarily the actual time these treatments may have been done. 2. This patient requires critical care secondary to ongoing requirements for therapy not offered or safe outside the critical care environment. Transfer to a lower level of care will result in altered life or limb morbidity and mortality. 3. Multidisciplinary rounds completed. 4. ABCDE bundle addressed.
[2020-04-13] MEDS: HYDRALAZINE HCL INJ/PF 20 MG/1 ML SDV IV PRN (20:20)
[2020-04-14 04:39] LABS: ANION GAP 7 (5-19); BLOOD UREA NITROGEN 38 mg/dL (7-20); CALCIUM 8.5 mg/dL (8.4-10.2); CARBON DIOXIDE 29 mmol/L (22-30); CHLORIDE 100 mmol/L (98-107); GLUCOSE 121 mg/dL (75-110); POTASSIUM 3.5 mmol/L (3.6-5.0)
[2020-04-14] MEDS: HYDRALAZINE HCL INJ/PF 20 MG/1 ML SDV IV PRN ×3 (06:02→14:22)
--- NOTE | 2020-04-14 08:23 | RADIOLOGY REPORT (SQ) ---
EXAM DESCRIPTION: CHEST SINGLE VIEW IMAGES COMPLETED DATE/TIME: 04/14/2020 6:06 am REASON FOR STUDY: ETT tube COMPARISON: 04/11/2020. EXAM PARAMETERS: NUMBER OF VIEWS: One view. TECHNIQUE: Single frontal radiographic view of the chest acquired. RADIATION DOSE: NA LIMITATIONS: None. FINDINGS: LUNGS AND PLEURA: Scattered densities primarily in the lung bases, slightly improved. MEDIASTINUM AND HILAR STRUCTURES: No masses. Contour normal. HEART AND VASCULAR STRUCTURES: Heart normal in size. Normal vasculature. BONES: No acute findings. HARDWARE: Tracheostomy tube, multi lumen catheter, cardiac recorder, sternotomy wires and atrial clip . OTHER: No other significant finding. IMPRESSION: IMPROVED AERATION WITH DECREASE IN THE BASILAR AIRSPACE DISEASE. TECHNICAL DOCUMENTATION: JOB ID: [id number] 2010 [employer]- All Rights Reserved Reading location - IP/workstation name: [email or web address]
[2020-04-14] MEDS: NYSTATIN TOPICAL POWDER 15 GM TP SCH ×2 (10:21→22:24)
[2020-04-14] MEDS: AMINO AC/PROTEIN HYDR/WHEY PRO 11 GM/45 ML PKT NG SCH ×3 (10:22→17:48)
[2020-04-14] MEDS: HYDRALAZINE HCL 25 MG TABLET NG SCH (10:22)
[2020-04-14] MEDS: CHOLECALCIFEROL (D3) 1,000 UNIT (25 MCG) TABLET NG SCH ×3 (10:22→17:47)
[2020-04-14] MEDS: CITALOPRAM HYDROBROMIDE 20 MG TABLET NG SCH (10:22)
[2020-04-14] MEDS: PANTOPRAZOLE SODIUM 40 MG VIAL IV SCH (10:22)
[2020-04-14] MEDS: CALCITRIOL 1 MCG/ML ORAL SOLN 15 ML NG SCH (10:23)
[2020-04-14] MEDS: COLLAGENASE CLOSTRIDIUM HIST. OINT 30 GM TOP SCH (10:23)
--- NOTE | 2020-04-14 15:47 | PDOC PROGRESS REPORT ---
Subjective Progress Note for:: 04/14/20 Reason For Visit: WEAKNESS,ELEVATED TROPONIN,CHF Physical Exam Vital Signs: Temp Pulse Resp BP Pulse Ox 97.3 F 118 H 19 182/65 H 100 04/14/20 14:20 04/14/20 14:00 04/14/20 14:20 04/14/20 14:20 04/14/20 14:20 Pulse Oximeter Nocturnal Start: 02/08/20 13:55 Freq: RTQ4 Status: Complete Protocol: Document 02/09/20 04:00 LRO (Rec: 02/09/20 05:38 LRO [id number]) Nocturnal Pulse Oximetry Equipment Usage Equipment in Use Oxygen Delivery Method (includes room Room Air air) O2 Sat by Pulse Oximetry (92-100) 95 Continuous SpO2 Machine # 2 Pulse Oximeter Nocturnal Start: 02/10/20 11:39 Freq: RTQ4 Status: Complete Protocol: Document 02/11/20 04:06 PMU (Rec: 02/11/20 05:06 PMU [email or web address]) Nocturnal Pulse Oximetry Equipment Usage Equipment in Use Oxygen Delivery Method (includes room Room Air air) O2 Sat by Pulse Oximetry (92-100) 93 Continuous SpO2 Machine # N2 Intake & Output 04/13/20 04/14/20 04/15/20 06:59 06:59 06:59 Intake Total 933 949 Output Total 225 2385 150 Balance 708 -1436 -150 Weight 109.4 kg 105.1 kg Results Laboratory Results: 04/13/20 04:30 04/14/20 04:06 04/14/20 04:06 Sodium 135.9 L Potassium 3.5 L Chloride 100 Carbon Dioxide 29 Anion Gap 7 BUN 38 H Creatinine 1.38 H Est GFR ( Amer) > 60 Glucose 121 H Calcium 8.5 Magnesium 1.8 02/08/20 02/08/20 02/21/20 09:49 13:11 04:50 Troponin I 0.160 0.155 NT-Pro-B Natriuret Pep 5540 H 62369 H 02/26/20 03/09/20 03/20/20 05:35 04:00 06:10 Troponin I NT-Pro-B Natriuret Pep 00776 H 37494 H 52883 H Impressions: Hip/Pelvis X-Ray 02/08/20 00:00 IMPRESSION: No acute fracture. Severe degenerative changes of the left hip. Knee X-Ray 02/08/20 00:00 IMPRESSION: NEGATIVE STUDY OF THE RIGHT KNEE. NO RADIOGRAPHIC EVIDENCE OF ACUTE INJURY. Renal Ultrasound 02/21/20 00:00 IMPRESSION: Increased echogenicity of the renal parenchyma suggestive of underlying chronic medical renal disease. There is no hydronephrosis. There is a Ryan catheter within the urinary bladder. Head CT 03/08/20 08:56 IMPRESSION: MILD CHRONIC CHANGES OF ATROPHY AND MICROVASCULAR ISCHEMIA. NO ACUTE PROCESS. EVIDENCE OF ACUTE STROKE: NO. Chest CT 03/08/20 10:12 IMPRESSION: Extensive bilateral infiltrates. No pneumothorax. KUB X-Ray 04/01/20 00:00 IMPRESSION: NG tube as described. Guidance Fluoroscopy 04/08/20 00:00 IMPRESSION: IMAGE(S) OBTAINED DURING PROCEDURE. Chest X-Ray 04/14/20 05:00 IMPRESSION: IMPROVED AERATION WITH DECREASE IN THE BASILAR AIRSPACE DISEASE. Assessment & Plan - Diagnosis (1) COVID-19 virus infection Is this a current diagnosis for this admission?: Yes (2) Acute respiratory failure with hypoxia Is this a current diagnosis for this admission?: Yes - Time Anticipated Discharge Disposition: [facility] Anticipated Discharge Timeframe: when bed available - Plan Summary Plan Summary: 70-year-old male status post diverting colostomy, permacath, and G-tube. The patient had a bleeding episode over the weekend due to his large sacral decubitus ulcer and the resumption of his Eliquis. I have examined the sacral decubitus ulcer again today. The majority of the wound appears reasonable, however the edges do appear somewhat necrotic. There is slow oozing/bleeding present in the wound, with removal of the dressings. I would recommend continued holding of the Eliquis for now. Plan for debridement of the wound tomorrow. I will continue to follow this patient. Please contact me with any questions or concerns.
[2020-04-14] MEDS: HYDROMORPHONE HCL INJ/PF 2 MG/ML AMPULE IV PRN (17:47)
--- NOTE | 2020-04-14 19:24 | PDOC CRITICAL CARE PROG REPORT ---
General Date:: 04/14/20 ICU Day:: 62 Hospital Day:: 66 Resuscitation Status: Full Code Events in the past 12 to 24 Hours:: This 69-year-old male was admitted on 02/08/2020 with dyspnea and leg weakness. He reported falling out of his truck a few days prior to presentation. He transferred to the ICU on 02/12/2020 after requiring endotr acheal intubation due to acute respiratory failure secondary to COVID-19 pneumonia. He has required prolonged mechanical ventilatory support and underwent tracheostomy on 03/11/2020. He also developed acute kidney injury, which has left him dialysis dependent at this point. He underwent PermCath p lacement on date. He also had percutaneous gastrostomy placement along with diverting colostomy. His hospitalization has been complicated by development of a gigantic stage IV sacral decubitus ulcer which has undergone multiple debridements. 04/13: Off Eliquis. Nursing staff reports that, over the weekend, the patient experienced what appeared to be lower GI bleed. This was evaluated by Dr. Pineda (general surgery). Flexible sigmoidoscopy failed to reveal a definite source. The patient's rectum was packed with gauze, which did provide hemostasis. He remained hemodynamically stable. Still in atrial fibrillation, rate controlled. Awake, alert. The patient's mood is considerably better than when I last saw him about a week ago. He is definitely more interactive. Answers yes/no appropriately and promptly. He is still certainly very weak. 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 His left hand and both lower extremities do not even appear to flicker on command. He had dialysis this morning. Case was discussed with Dr. Pineda. Currently, the patient is off antibiotics. Review of systems relevant to events:: Neurological, renal, GI. Reason for ICU Addmission:: Ready for LTAC. - Medications: Medications reviewed and adjusted accordingly: Yes Physical Exam Vital Signs: Temp Pulse Resp BP Pulse Ox 97.3 F 118 H 19 182/65 H 100 04/14/20 14:20 04/14/20 14:00 04/14/20 14:20 04/14/20 14:20 04/14/20 14:20 Pulse Oximeter Nocturnal Start: 02/08/20 13:55 Freq: RTQ4 Status: Complete Protocol: Document 02/09/20 04:00 LRO (Rec: 02/09/20 05:38 LRO [email or web address]) Nocturnal Pulse Oximetry Equipment Usage Equipment in Use Oxygen Delivery Method (includes room Room Air air) O2 Sat by Pulse Oximetry (92-100) 95 Continuous SpO2 Machine # 2 Pulse Oximeter Nocturnal Start: 02/10/20 11:39 Freq: RTQ4 Status: Complete Protocol: Document 02/11/20 04:06 PMU (Rec: 02/11/20 05:06 PMU [email or web address]) Nocturnal Pulse Oximetry Equipment Usage Equipment in Use Oxygen Delivery Method (includes room Room Air air) O2 Sat by Pulse Oximetry (92-100) 93 Continuous SpO2 Machine # N2 Intake & Output 04/13/20 04/14/20 04/15/20 06:59 06:59 06:59 Intake Total 933 949 Output Total 225 2385 150 Balance 708 -1436 -150 Weight 109.4 kg 105.1 kg Weight/Height Weight 105.1 kg Height 1.75 m General appearance: PRESENT: no acute distress, well-developed, well-nourished Head exam: PRESENT: atraumatic, normocephalic Eye exam: PRESENT: conjunctiva pink, EOMI, PERRLA. ABSENT: scleral icterus Mouth exam: PRESENT: moist, tongue midline Neck exam: PRESENT: tracheostomy. ABSENT: carotid bruit, JVD, lymphadenopathy, thyromegaly Respiratory exam: PRESENT: rales. ABSENT: rhonchi, wheezes Cardiovascular exam: PRESENT: irregular rhythm, RRR. ABSENT: diastolic murmur, rubs, systolic murmur GI/Abdominal exam: PRESENT: normal bowel sounds, soft, other - Diverting colostomy. ABSENT: distended, guarding, mass, organolmegaly, rebound, tenderness Extremities exam: PRESENT: full ROM, pedal edema. ABSENT: calf tenderness, cl ubbing Neurological exam: PRESENT: alert, awake, CN II-XII grossly intact, motor sensory deficit. ABSENT: reflexes normal Psychiatric exam: ABSENT: agitated, anxious Skin exam: PRESENT: other - Stage IV decubitus ulcer. Bilateral lower extremity unstageable deep tissue injury. Tubes/Lines: PRESENT: Dialysis catheter, Peg Tube Laboratory/Radiographs Laboratory Results: 04/13/20 04:30 04/14/20 04:06 04/14/20 04:06 Sodium 135.9 L Potassium 3.5 L Chloride 100 Carbon Dioxide 29 Anion Gap 7 BUN 38 H Creatinine 1.38 H Est GFR ( Amer) > 60 Glucose 121 H Calcium 8.5 Magnesium 1.8 02/08/20 02/08/20 02/21/20 09:49 13:11 04:50 Troponin I 0.160 0.155 NT-Pro-B Natriuret Pep 5540 H 65493 H 02/26/20 03/09/20 03/20/20 05:35 04:00 06:10 Troponin I NT-Pro-B Natriuret Pep 19181 H 85537 H 18648 H Impressions: Hip/Pelvis X-Ray 02/08/20 00:00 IMPRESSION: No acute fracture. Severe degenerative changes of the left hip. Knee X-Ray 02/08/20 00:00 IMPRESSION: NEGATIVE STUDY OF THE RIGHT KNEE. NO RADIOGRAPHIC EVIDENCE OF ACUTE INJURY. Renal Ultrasound 02/21/20 00:00 IMPRESSION: Increased echogenicity of the renal parenchyma suggestive of underlying chronic medical renal disease. There is no hydronephrosis. There is a Ryan catheter within the urinary bladder. Head CT 03/08/20 08:56 IMPRESSION: MILD CHRONIC CHANGES OF ATROPHY AND MICROVASCULAR ISCHEMIA. NO ACUTE PROCESS. EVIDENCE OF ACUTE STROKE: NO. Chest CT 03/08/20 10:12 IMPRESSION: Extensive bilateral infiltrates. No pneumothorax. KUB X-Ray 04/01/20 00:00 IMPRESSION: NG tube as described. Guidance Fluoroscopy 04/08/20 00:00 IMPRESSION: IMAGE(S) OBTAINED DURING PROCEDURE. Chest X-Ray 04/14/20 05:00 IMPRESSION: IMPROVED AERATION WITH DECREASE IN THE BASILAR AIRSPACE DISEASE. All labs, radiographs, diagnostic studies and EKGs were personally reviewed: Yes In addition, reports of radiographic and diagnostic studies were read: Yes Assessment and Plan - Diagnosis (1) Decubitus ulcer of sacral region, unstageable Is this a current diagnosis for this admission?: Yes Plan: * Present on admission. * Additionally, he has unstageable pressure ulcers on his lower extremities. * General surgery help appreciated. * Wound care service help appreciated. * status post diverting colostomy. (2) Polyneuropathy associated with critical illness Is this a current diagnosis for this admission?: Yes Plan: Still weak. Needs extensive rehab. (3) CKD (chronic kidney disease) stage 5, GFR less than 15 ml/min Is this a current diagnosis for this admission?: Yes Plan: HD on m,w,f. (4) Nonischemic cardiomyopathy Is this a current diagnosis for this admission?: Yes Plan: LVEF 25-30% with grade 3 diastolic dysfunction on 2D echo (02/10/2020). (5) Atrial fibrillation Qualifiers: Atrial fibrillation type: persistent (not longstanding) Qualified Code(s): I48.19 - Other persistent atrial fibrillation; I48.1 - Persistent atrial fibrillation Is this a current diagnosis for this admission?: Yes Plan: * Digoxin on hold. Check digoxin level today. * Eliquis on hold for GI bleeding. (6) Vitamin D deficiency Is this a current diagnosis for this admission?: Yes Plan: * Vitamin D3 2000 units NG 3 times daily. * 25-hydroxy vitamin D level is still LOW. 1,25-dihydroxy vitamin D level pending. (7) Hyponatremia Is this a current diagnosis for this admission?: Yes (8) Occult blood in stools Is this a current diagnosis for this admission?: Yes (9) Normocytic anemia Is this a current diagnosis for this admission?: Yes (10) Abnormal LFTs Is this a current diagnosis for this admission?: Yes (11) Darío-Manuel respiration Is this a current diagnosis for this admission?: Yes (12) Gram negative sepsis Is this a current diagnosis for this admission?: Yes (13) Acute respiratory failure due to COVID-19 Is this a current diagnosis for this admission?: Yes Critical Time Critical Time (minutes): 30 Level of Care: ICU -: 1. The care of a critical patient is a dynamic process. This note is a authorization representative synopsis but static in nature. The timeframe for treatments given in order is not necessarily the actual time these treatments may have been done. 2. This patient requires critical care secondary to ongoing requirements for therapy not offered or safe outside the critical care environment. Transfer to a lower level of care will result in altered life or limb morbidity and mortality. 3. Multidisciplinary rounds completed. 4. ABCDE bundle addressed.
[2020-04-14] MEDS ORDERED: METOPROLOL TARTRATE 50 MG TABLET ONE (19:59)
[2020-04-14] MEDS: METOPROLOL SUCCINATE 50 MG TAB.SR.24H PO SCH (20:04)
[2020-04-15 03:56] LABS: ABSOLUTE EOSINOPHILS # (AUTO) 0.2 10^3/uL (0.0-0.6); ABSOLUTE LYMPHOCYTES (AUTO) 1.6 10^3/uL (0.5-4.7); ABSOLUTE MONOCYTES (AUTO) 0.9 10^3/uL (0.1-1.4); ABSOLUTE NEUT (AUTO) 9.4 10^3/uL (1.7-8.2); BASOPHILS % (AUTO) 0.4 % (0-2); EOSINOPHILS % (AUTO) 1.6 % (0-6); HEMATOCRIT 25.3 % (37.9-51.0); HEMOGLOBIN 8.4 g/dL (13.5-17.0); LYMPHOCYTES % (AUTO) 13.1 % (13-45); MEAN CORPUSCULAR HEMOGLOBIN 29.2 pg (27.0-33.4); MEAN CORPUSCULAR HGB CONC 33.2 g/dL (32.0-36.0); MEAN CORPUSCULAR VOLUME 88 fl (80-97); MONOCYTES % (AUTO) 7.2 % (3-13); PLATELET COUNT 253 10^3/uL (150-450); RED BLOOD COUNT 2.88 10^6/uL (4.35-5.55); RED CELL DISTRIBUTION WIDTH 17.5 % (11.5-14.0); SEGMENTED NEUTROPHILS % (AUTO) 77.7 % (42-78); TOTAL CELLS COUNTED % (AUTO) 100 %; WHITE BLOOD COUNT 12.1 10^3/uL (4.0-10.5)
[2020-04-15 04:16] LABS: ALBUMIN 2.1 g/dL (3.5-5.0); ALKALINE PHOSPHATASE 131 U/L (38-126); ANION GAP 5 (5-19); ASPARTATE AMINO TRANSFERASE 23 U/L (17-59); BILIRUBIN,DIRECT 0.6 mg/dL (0.0-0.4); BILIRUBIN,TOTAL 0.7 mg/dL (0.2-1.3); BLOOD UREA NITROGEN 54 mg/dL (7-20); CALCIUM 9.1 mg/dL (8.4-10.2); CARBON DIOXIDE 28 mmol/L (22-30); CHLORIDE 101 mmol/L (98-107); GLUCOSE 119 mg/dL (75-110); PHOSPHORUS 4.7 mg/dL (2.5-4.5); POTASSIUM 3.4 mmol/L (3.6-5.0); TOTAL PROTEIN 4.7 g/dL (6.3-8.2)
[2020-04-15 04:23] LABS: PREALBUMIN 7.3 mg/dL (17.6-36.0)
[2020-04-15] MEDS ORDERED: HEPARIN SOD (PORCINE) 1,000 UNIT/ML 10 ML VIAL IV PRN (05:00)
[2020-04-15] MEDS ORDERED: EPOETIN ALFA-EPBX 2,000 UNIT, EPOETIN ALFA-EPBX 3,000 UNIT, EPOETIN ALFA-EPBX 20,000 UN... IV PRN ×4 (05:00)
[2020-04-15] MEDS ORDERED: DIGOXIN INJ 0.5 MG/2 ML AMPULE IV ONE ×2 (09:00→18:25)
[2020-04-15] MEDS: PANTOPRAZOLE SODIUM 40 MG VIAL IV SCH ×2 (09:40→21:07)
[2020-04-15] MEDS: CHOLECALCIFEROL (D3) 1,000 UNIT (25 MCG) TABLET NG SCH ×3 (09:41→18:24)
[2020-04-15] MEDS: CITALOPRAM HYDROBROMIDE 20 MG TABLET NG SCH (09:41)
[2020-04-15] MEDS: COLLAGENASE CLOSTRIDIUM HIST. OINT 30 GM TOP SCH (09:42)
[2020-04-15] MEDS: AMINO AC/PROTEIN HYDR/WHEY PRO 11 GM/45 ML PKT NG SCH ×3 (09:42→18:24)
[2020-04-15] MEDS: METOPROLOL SUCCINATE 50 MG TAB.SR.24H PO SCH (09:42)
[2020-04-15] MEDS: CALCITRIOL 1 MCG/ML ORAL SOLN 15 ML NG SCH (09:42)
[2020-04-15] MEDS: NYSTATIN TOPICAL POWDER 15 GM TP SCH ×2 (09:43→21:07)
[2020-04-15] MEDS ORDERED: GLUCAGON,HUMAN RECOMB 1 MG INJ IM PRN (12:00)
[2020-04-15] MEDS ORDERED: DEXTROSE 50%-WATER SYRINGE 12.5 GM/25 ML DOSE IV PRN (12:00)
[2020-04-15] MEDS ORDERED: DEXTROSE 50%-WATER SYRINGE 25 GM/50 ML DOSE IV PRN (12:00)
[2020-04-15] MEDS ORDERED: DEXTROSE 40% GEL 15 GM TUBE X 2 PO PRN (12:00)
[2020-04-15] MEDS ORDERED: DEXTROSE 40% GEL 15 GM TUBE PO PRN (12:00)
[2020-04-15] MEDS ORDERED: LIDOCAINE 1%/EPINEPHRINE INJ 20 ML VIAL INJ PRN (12:25)
[2020-04-15] MEDS ORDERED: MIDAZOLAM 2 MG/2 ML INJ IV PRN (12:25)
--- NOTE | 2020-04-15 13:18 | PDOC PROGRESS REPORT ---
Subjective Progress Note for:: 04/15/20 Reason For Visit: Patient seen today on dialysis in the ICU. He is currently undergoing dialysis without any issues. Denies any specific complaints of chest pain shortness of breath. Labs and medications were reviewed. Dialysis orders were reviewed with the treating dialysis nurse. Physical Exam Vital Signs: Temp Pulse Resp BP Pulse Ox 97.7 F 103 H 17 160/55 H 98 04/15/20 12:00 04/15/20 11:55 04/15/20 12:00 04/15/20 11:55 04/15/20 12:00 Pulse Oximeter Nocturnal Start: 02/08/20 13:55 Freq: RTQ4 Status: Complete Protocol: Document 02/09/20 04:00 LRO (Rec: 02/09/20 05:38 LRO [email or web address]) Nocturnal Pulse Oximetry Equipment Usage Equipment in Use Oxygen Delivery Method (includes room Room Air air) O2 Sat by Pulse Oximetry (92-100) 95 Continuous SpO2 Machine # 2 Pulse Oximeter Nocturnal Start: 02/10/20 11:39 Freq: RTQ4 Status: Complete Protocol: Document 02/11/20 04:06 PMU (Rec: 02/11/20 05:06 PMU [email or web address]) Nocturnal Pulse Oximetry Equipment Usage Equipment in Use Oxygen Delivery Method (includes room Room Air air) O2 Sat by Pulse Oximetry (92-100) 93 Continuous SpO2 Machine # N2 Intake & Output 04/14/20 04/15/20 04/16/20 06:59 06:59 06:59 Intake Total 949 570 Output Total 2385 190 412 Balance -1436 380 -412 Weight 105.1 kg 104.4 kg General appearance: PRESENT: no acute distress Exam: Has tracheostomy. Respiratory exam: PRESENT: clear to auscultation kevyn, decreased breath sounds. ABSENT: crackles Cardiovascular exam: PRESENT: +S1, +S2 GI/Abdominal exam: PRESENT: normal bowel sounds, soft. ABSENT: organomegaly, tenderness Extremities exam: PRESENT: pedal edema Neurological exam: PRESENT: awake, oriented to person, oriented to place Results Laboratory Results: 04/15/20 03:37 04/15/20 03:37 04/15/20 04/15/20 03:37 03:37 WBC 12.1 H RBC 2.88 L Hgb 8.4 L Hct 25.3 L MCV 88 MCH 29.2 MCHC 33.2 RDW 17.5 H Plt Count 253 Seg Neutrophils % 77.7 Sodium 134.3 L Potassium 3.4 L Chloride 101 Carbon Dioxide 28 Anion Gap 5 BUN 54 H Creatinine 1.66 H Est GFR ( Amer) 50 L Glucose 119 H Calcium 9.1 Phosphorus 4.7 H Magnesium 1.8 Total Bilirubin 0.7 AST 23 Alkaline Phosphatase 131 H Total Protein 4.7 L Albumin 2.1 L Prealbumin 7.3 L 02/08/20 02/08/20 02/21/20 09:49 13:11 04:50 Troponin I 0.160 0.155 NT-Pro-B Natriuret Pep 5540 H 23211 H 02/26/20 03/09/20 03/20/20 05:35 04:00 06:10 Troponin I NT-Pro-B Natriuret Pep 34869 H 47689 H 86983 H Impressions: Hip/Pelvis X-Ray 02/08/20 00:00 IMPRESSION: No acute fracture. Severe degenerative changes of the left hip. Knee X-Ray 02/08/20 00:00 IMPRESSION: NEGATIVE STUDY OF THE RIGHT KNEE. NO RADIOGRAPHIC EVIDENCE OF ACUTE INJURY. Renal Ultrasound 02/21/20 00:00 IMPRESSION: Increased echogenicity of the renal parenchyma suggestive of underlying chronic medical renal disease. There is no hydronephrosis. There is a Ryan catheter within the urinary bladder. Head CT 03/08/20 08:56 IMPRESSION: MILD CHRONIC CHANGES OF ATROPHY AND MICROVASCULAR ISCHEMIA. NO ACUTE PROCESS. EVIDENCE OF ACUTE STROKE: NO. Chest CT 03/08/20 10:12 IMPRESSION: Extensive bilateral infiltrates. No pneumothorax. KUB X-Ray 04/01/20 00:00 IMPRESSION: NG tube as described. Guidance Fluoroscopy 04/08/20 00:00 IMPRESSION: IMAGE(S) OBTAINED DURING PROCEDURE. Chest X-Ray 04/14/20 05:00 IMPRESSION: IMPROVED AERATION WITH DECREASE IN THE BASILAR AIRSPACE DISEASE. Assessment & Plan - Diagnosis (1) Acute kidney injury superimposed on chronic kidney disease Is this a current diagnosis for this admission?: Yes Plan: Acute on chronic kidney disease with patient having underlying baseline creatinine of around 1.7-2. Currently remains anuric. Initiated hemodialysis through a temporary catheter. Dialysis is ongoing. Plan to remove 2-3 L of fluid as tolerated. Discussed and reviewed dialysis orders with the treating dialysis nurse. S/P IJ PermCath placement. Awaiting placement. (2) Acute on chronic combined systolic (congestive) and diastolic (congestive) heart failure Is this a current diagnosis for this admission?: Yes Plan: Improved monitor and see response to gentle dialysis. (3) Atrial fibrillation Qualifiers: Atrial fibrillation type: persistent (not longstanding) Qualified Code(s): I48.19 - Other persistent atrial fibrillation; I48.1 - Persistent atrial fibrillation Is this a current diagnosis for this admission?: Yes Plan: Currently rate controlled. Monitor. (4) COVID-19 virus infection Is this a current diagnosis for this admission?: Yes Plan: His last serology for COVID 19 was done on 03/30 and was negative. (5) Anemia Qualifiers: Anemia type: iron deficiency Is this a current diagnosis for this admission?: Yes Plan: Today's hemoglobin is 8.1. Patient is on erythropoietin. (6) Hyponatremia Is this a current diagnosis for this admission?: Yes Plan: Stable and see response to fluid removal. Monitor. (7) Decubitus ulcer of sacral region, unstageable Is this a current diagnosis for this admission?: Yes Plan: Polymicrobial. Currently off all antibiotics and being managed by co founder and chief strategy officer. (8) MRSA pneumonia Qualifiers: Laterality: bilateral Lung location: unspecified part of lung Qualified Code(s): J15.212 - Pneumonia due to Methicillin resistant Staphylococcus aureus Is this a current diagnosis for this admission?: Yes Plan: Resolved.
--- NOTE | 2020-04-15 20:36 | PDOC CRITICAL CARE PROG REPORT ---
General Date:: 04/15/20 ICU Day:: 63 Hospital Day:: 67 Resuscitation Status: Full Code Events in the past 12 to 24 Hours:: This 69-year-old male was admitted on 02/08/2020 with dyspnea and leg weakness. He reported falling out of his truck a few days prior to presentation. He transferred to the ICU on 02/12/2020 after requiring endotr acheal intubation due to acute respiratory failure secondary to COVID-19 pneumonia. He has required prolonged mechanical ventilatory support and underwent tracheostomy on 03/11/2020. He also developed acute kidney injury, which has left him dialysis dependent at this point. He underwent PermCath p lacement on date. He also had percutaneous gastrostomy placement along with diverting colostomy. His hospitalization has been complicated by development of a gigantic stage IV sacral decubitus ulcer which has undergone multiple debridements. 04/13: Off Eliquis. Nursing staff reports that, over the weekend, the patient experienced what appeared to be lower GI bleed. This was evaluated by Dr. Pineda (general surgery). Flexible sigmoidoscopy failed to reveal a definite source. The patient's rectum was packed with gauze, which did provide hemostasis. He remained hemodynamically stable. Still in atrial fibrillation, rate controlled. Awake, alert. The patient's mood is considerably better than when I last saw him about a week ago. He is definitely more interactive. Answers yes/no appropriately and promptly. He is still certainly very weak. 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 His left hand and both lower extremities do not even appear to flicker on command. He had dialysis this morning. Case was discussed with Dr. Pineda. Currently, the patient is off antibiotics. 04/14: No significant change. 04/15: No significant change. Case discussed with physical therapy and case management. Awaiting a facility that can provide hemodialysis as well as nighttime mechanical ventilatory support. Lower GI bleed appears to be controlled. Patient was given a one-time dose of digoxin yesterday after his digoxin level finally reached a low-normal level. Currently, and normal sinus rhythm/sinus tachycardia. Hypertensive. Review of systems relevant to events:: Neurological, renal, GI. Reason for ICU Addmission:: Ready for LTAC. - Medications: Medications reviewed and adjusted accordingly: Yes Physical Exam Vital Signs: Temp Pulse Resp BP Pulse Ox 98.1 F 105 H 23 H 136/63 H 99 04/15/20 16:00 04/15/20 16:00 04/15/20 16:00 04/15/20 16:00 04/15/20 16:00 Pulse Oximeter Nocturnal Start: 02/08/20 13:55 Freq: RTQ4 Status: Complete Protocol: Document 02/09/20 04:00 LRO (Rec: 02/09/20 05:38 LRO [email or web address]) Nocturnal Pulse Oximetry Equipment Usage Equipment in Use Oxygen Delivery Method (includes room Room Air air) O2 Sat by Pulse Oximetry (92-100) 95 Continuous SpO2 Machine # 2 Pulse Oximeter Nocturnal Start: 02/10/20 11:39 Freq: RTQ4 Status: Complete Protocol: Document 02/11/20 04:06 PMU (Rec: 02/11/20 05:06 PMU [email or web address]) Nocturnal Pulse Oximetry Equipment Usage Equipment in Use Oxygen Delivery Method (includes room Room Air air) O2 Sat by Pulse Oximetry (92-100) 93 Continuous SpO2 Machine # N2 Intake & Output 04/14/20 04/15/20 04/16/20 06:59 06:59 06:59 Intake Total 099 268 5758 Output Total 2385 190 3412 Balance -1436 380 -2412 Weight 105.1 kg 104.4 kg Weight/Height Weight 104.4 kg Height 1.75 m General appearance: PRESENT: no acute distress, well-nourished Head exam: PRESENT: atraumatic, normocephalic Eye exam: PRESENT: conjunctiva pink, EOMI, PERRLA. ABSENT: scleral icterus Mouth exam: PRESENT: moist, tongue midline Neck exam: PRESENT: tracheostomy. ABSENT: carotid bruit, JVD, lymphadenopathy, thyromegaly Respiratory exam: PRESENT: rales, rhonchi, other - Strong cough. ABSENT: wheezes Cardiovascular exam: PRESENT: RRR. ABSENT: diastolic murmur, rubs, systolic murmur Pulses: PRESENT: normal dorsalis pedis pul GI/Abdominal exam: PRESENT: normal bowel sounds, soft, other - Diverting colostomy. ABSENT: distended, guarding, mass, organolmegaly, rebound, tenderness Extremities exam: PRESENT: full ROM, pedal edema, +2 edema. ABSENT: calf tenderness, clubbing Musculoskeletal exam: PRESENT: other - Stage IV sacral decubitus. Unstageable lower extremity pressure sores. 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 Motor at left upper extremity 0/5, bilateral lower extremities 0/5. Psychiatric exam: PRESENT: appropriate affect. ABSENT: agitated, anxious Tubes/Lines: PRESENT: Dialysis catheter, Other - Percutaneous gastrostomy. Diverting colostomy. Laboratory/Radiographs Laboratory Results: 04/15/20 03:37 04/15/20 03:37 04/15/20 04/15/20 03:37 03:37 WBC 12.1 H RBC 2.88 L Hgb 8.4 L Hct 25.3 L MCV 88 MCH 29.2 MCHC 33.2 RDW 17.5 H Plt Count 253 Seg Neutrophils % 77.7 Sodium 134.3 L Potassium 3.4 L Chloride 101 Carbon Dioxide 28 Anion Gap 5 BUN 54 H Creatinine 1.66 H Est GFR ( Amer) 50 L Glucose 119 H Calcium 9.1 Phosphorus 4.7 H Magnesium 1.8 Total Bilirubin 0.7 AST 23 Alkaline Phosphatase 131 H Total Protein 4.7 L Albumin 2.1 L Prealbumin 7.3 L 02/08/20 02/08/20 02/21/20 09:49 13:11 04:50 Troponin I 0.160 0.155 NT-Pro-B Natriuret Pep 5540 H 88807 H 02/26/20 03/09/20 03/20/20 05:35 04:00 06:10 Troponin I NT-Pro-B Natriuret Pep 34067 H 17105 H 82796 H Impressions: Hip/Pelvis X-Ray 02/08/20 00:00 IMPRESSION: No acute fracture. Severe degenerative changes of the left hip. Knee X-Ray 02/08/20 00:00 IMPRESSION: NEGATIVE STUDY OF THE RIGHT KNEE. NO RADIOGRAPHIC EVIDENCE OF ACUTE INJURY. Renal Ultrasound 02/21/20 00:00 IMPRESSION: Increased echogenicity of the renal parenchyma suggestive of underlying chronic medical renal disease. There is no hydronephrosis. There is a Yran catheter within the urinary bladder. Head CT 03/08/20 08:56 IMPRESSION: MILD CHRONIC CHANGES OF ATROPHY AND MICROVASCULAR ISCHEMIA. NO ACUTE PROCESS. EVIDENCE OF ACUTE STROKE: NO. Chest CT 03/08/20 10:12 IMPRESSION: Extensive bilateral infiltrates. No pneumothorax. KUB X-Ray 04/01/20 00:00 IMPRESSION: NG tube as described. Guidance Fluoroscopy 04/08/20 00:00 IMPRESSION: IMAGE(S) OBTAINED DURING PROCEDURE. Chest X-Ray 04/14/20 05:00 IMPRESSION: IMPROVED AERATION WITH DECREASE IN THE BASILAR AIRSPACE DISEASE. All labs, radiographs, diagnostic studies and EKGs were personally reviewed: Yes In addition, reports of radiographic and diagnostic studies were read: Yes Assessment and Plan - Diagnosis (1) Decubitus ulcer of sacral region, unstageable Is this a current diagnosis for this admission?: Yes Plan: * Present on admission. * Additionally, he has unstageable pressure ulcers on his lower extremities. * General surgery help appreciated. Anticipating debridement again today. * Wound care service help appreciated. * status post diverting colostomy. (2) Polyneuropathy associated with critical illness Is this a current diagnosis for this admission?: Yes Plan: * Still weak. Needs extensive rehab. * Case discussed with physical therapy. * We will inquire as to whether EMG/NCV studies are available at this facility. (3) CKD (chronic kidney disease) stage 5, GFR less than 15 ml/min Is this a current diagnosis for this admission?: Yes (4) Nonischemic cardiomyopathy Is this a current diagnosis for this admission?: Yes (5) Atrial fibrillation Qualifiers: Atrial fibrillation type: persistent (not longstanding) Qualified Code(s): I48.19 - Other persistent atrial fibrillation; I48.1 - Persistent atrial fibrillation Is this a current diagnosis for this admission?: Yes Plan: * Digoxin on hold. Check digoxin level today. * Eliquis on hold for GI bleeding and in anticipation of debridement. (6) Vitamin D deficiency Is this a current diagnosis for this admission?: Yes (7) Hyponatremia Is this a current diagnosis for this admission?: Yes (8) Occult blood in stools Is this a current diagnosis for this admission?: Yes Plan: * Resolved. Suspected to be secondary to ulceration of the mucosa (perhaps related to fecal management system). (9) Normocytic anemia Is this a current diagnosis for this admission?: Yes (10) Abnormal LFTs Is this a current diagnosis for this admission?: Yes (11) Darío-Manuel respiration Is this a current diagnosis for this admission?: Yes (12) Gram negative sepsis Is this a current diagnosis for this admission?: Yes (13) Acute respiratory failure due to COVID-19 Is this a current diagnosis for this admission?: Yes Critical Time Critical Time (minutes): 30 Level of Care: ICU -: 1. The care of a critical patient is a dynamic process. This note is a metals sales representative synopsis but static in nature. The timeframe for treatments given in order is not necessarily the actual time these treatments may have been done. 2. This patient requires critical care secondary to ongoing requirements for therapy not offered or safe outside the critical care environment. Transfer to a lower level of care will result in altered life or limb morbidity and mortality. 3. Multidisciplinary rounds completed. 4. ABCDE bundle addressed.
[2020-04-15 21:42] LABS: HEMATOCRIT 24.2 % (37.9-51.0); HEMOGLOBIN 8.1 g/dL (13.5-17.0); MEAN CORPUSCULAR HEMOGLOBIN 29.4 pg (27.0-33.4); MEAN CORPUSCULAR HGB CONC 33.5 g/dL (32.0-36.0); MEAN CORPUSCULAR VOLUME 88 fl (80-97); PLATELET COUNT 250 10^3/uL (150-450); RED BLOOD COUNT 2.76 10^6/uL (4.35-5.55); WHITE BLOOD COUNT 11.9 10^3/uL (4.0-10.5)
[2020-04-15] MEDS ORDERED: DESMOPRESSIN ACETATE INJ 4 MCG/1 ML AMPULE IV ONE (22:15)
[2020-04-15] MEDS: HYDROMORPHONE HCL INJ/PF 2 MG/ML AMPULE IV PRN (22:40)
[2020-04-16] MEDS ORDERED: RINGERS SOLUTION,LACTATED 1,000 ML IV ONE ×2 (00:29→00:49)
[2020-04-16] MEDS ORDERED: COLLAGENASE CLOSTRIDIUM HIST. OINT 30 GM ONE (00:31)
[2020-04-16 00:52] LABS: HEMATOCRIT 20.6 % (37.9-51.0); MEAN CORPUSCULAR HEMOGLOBIN 29.2 pg (27.0-33.4); MEAN CORPUSCULAR VOLUME 89 fl (80-97); RED BLOOD COUNT 2.32 10^6/uL (4.35-5.55); RED CELL DISTRIBUTION WIDTH 17.3 % (11.5-14.0); WHITE BLOOD COUNT 17.1 10^3/uL (4.0-10.5)
[2020-04-16 00:55] LABS: HEMOGLOBIN 6.8 g/dL (13.5-17.0)
[2020-04-16] MEDS ORDERED: NORMAL SALINE 250 ML IV PRN ×2 (00:56)
[2020-04-16 01:15] LABS: ABSOLUTE LYMPHOCYTES# (MANUAL) 5.1 10^3/uL (0.5-4.7); ABSOLUTE MONOCYTES # (MANUAL) 0.2 10^3/uL (0.1-1.4); BAND NEUTROPHILS % (MANUAL) 1 % (3-5); BASOPHILS % (MANUAL) 2 % (0-2); EOSINOPHILS % (MANUAL) 0 % (0-6); LYMPHOCYTES % (MANUAL) 30 % (13-45); MONOCYTES % (MANUAL) 1 % (3-13); SEGMENTED NEUTROPHILS % (MAN) 66 % (42-78); TOTAL CELLS COUNTED 100
[2020-04-16 01:19] LABS: ANISOCYTOSIS 1+; PLATELET CLUMPS PRESENT; PLATELET COMMENT ADEQUATE; PLATELET COUNT 272 10^3/uL (150-450); POIKILOCYTOSIS SLIGHT; POLYCHROMASIA 1+
[2020-04-16 08:57] LABS: HEMATOCRIT 25.7 % (37.9-51.0); MEAN CORPUSCULAR HEMOGLOBIN 30.4 pg (27.0-33.4); MEAN CORPUSCULAR HGB CONC 34.9 g/dL (32.0-36.0); MEAN CORPUSCULAR VOLUME 87 fl (80-97); PLATELET COUNT 224 10^3/uL (150-450); RED BLOOD COUNT 2.95 10^6/uL (4.35-5.55); WHITE BLOOD COUNT 16.2 10^3/uL (4.0-10.5)
[2020-04-16] MEDS: COLLAGENASE CLOSTRIDIUM HIST. OINT 30 GM TOP SCH (10:20)
[2020-04-16] MEDS: NYSTATIN TOPICAL POWDER 15 GM TP SCH ×2 (10:20→21:11)
[2020-04-16] MEDS: CHOLECALCIFEROL (D3) 1,000 UNIT (25 MCG) TABLET NG SCH ×3 (10:21→17:45)
[2020-04-16] MEDS: CITALOPRAM HYDROBROMIDE 20 MG TABLET NG SCH (10:21)
[2020-04-16] MEDS: PANTOPRAZOLE SODIUM 40 MG VIAL IV SCH ×2 (10:21→21:11)
[2020-04-16] MEDS: CALCITRIOL 1 MCG/ML ORAL SOLN 15 ML NG SCH (10:57)
[2020-04-16] MEDS: AMINO AC/PROTEIN HYDR/WHEY PRO 11 GM/45 ML PKT NG SCH ×3 (10:57→17:45)
[2020-04-16] MEDS: METOPROLOL SUCCINATE 50 MG TAB.SR.24H PO SCH (10:58)
[2020-04-16] MEDS: METOPROLOL TARTRATE 25 MG TABLET NG SCH ×2 (12:02→21:11)
[2020-04-16 12:03] LABS: ARTERIAL BLOOD BASE EXCESS 3.8 mmol/L; ARTERIAL BLOOD H2CO3 1.16 mmol/L (1.05-1.35); ARTERIAL BLOOD HCO3 27.6 mmol/L (20-24); ARTERIAL BLOOD PCO2 38.5 mmHg (35-45); ARTERIAL BLOOD PH 7.47 (7.35-7.45); ARTERIAL BLOOD PO2 142.6 mmHg (80-100); ARTERIAL BLOOD TOTAL CO2 28.8 mmol/L (23-27)
[2020-04-16] MEDS: HYDROMORPHONE HCL INJ/PF 2 MG/ML AMPULE IV PRN (12:05)
[2020-04-16 12:28] LABS: ARTERIAL BLOOD FIO2 45%
--- NOTE | 2020-04-16 16:55 | PDOC CRITICAL CARE PROG REPORT ---
General Date:: 04/16/20 ICU Day:: 64 Hospital Day:: 68 Resuscitation Status: Full Code Events in the past 12 to 24 Hours:: This 69-year-old male was admitted on 02/08/2020 with dyspnea and leg weakness. He reported falling out of his truck a few days prior to presentation. He transferred to the ICU on 02/12/2020 after requiring endotr acheal intubation due to acute respiratory failure secondary to COVID-19 pneumonia. He has required prolonged mechanical ventilatory support and underwent tracheostomy on 03/11/2020. He also developed acute kidney injury, which has left him dialysis dependent at this point. He underwent PermCath p lacement on date. He also had percutaneous gastrostomy placement along with diverting colostomy. His hospitalization has been complicated by development of a gigantic stage IV sacral decubitus ulcer which has undergone multiple debridements. 04/13: Off Eliquis. Nursing staff reports that, over the weekend, the patient experienced what appeared to be lower GI bleed. This was evaluated by Dr. Pineda (general surgery). Flexible sigmoidoscopy failed to reveal a definite source. The patient's rectum was packed with gauze, which did provide hemostasis. He remained hemodynamically stable. Still in atrial fibrillation, rate controlled. Awake, alert. The patient's mood is considerably better than when I last saw him about a week ago. He is definitely more interactive. Answers yes/no appropriately and promptly. He is still certainly very weak. He does copra processor with his right hand promptly, albeit obviously very weak. His left hand and both lower extremities do not even appear to flicker on command. He had dialysis this morning. Case was discussed with Dr. Pineda. Currently, the patient is off antibiotics. 04/14: No significant change. 04/15: No significant change. Case discussed with physical therapy and case management. Awaiting a facility that can provide hemodialysis as well as nighttime mechanical ventilatory support. Lower GI bleed appears to be controlled. Patient was given a one-time dose of digoxin yesterday after his digoxin level finally reached a low-normal level. Currently, and normal sinus rhythm/sinus tachycardia. Hypertensive. 04/16: Overnight, patient experienced acute lower GI bleeding. General surgery help appreciated. Bleeding focus could not be identified. Large clot was passed per rectum. Additionally, bloody material was collecting in the colostomy bag. ELSI globin dropped to 6.8. The patient urgently was transfused 2 units PRBC with subsequent rise in hemoglobin to 9.0. He did become hypotensive. Blood pressure improved with transfusion. He was placed back on ventilatory support with a set rate; however, at this time he is back on pressure support and breathing comfortably. Got digoxin 0.25 mg IV single dose yesterday. Repeat digoxin level today is therapeutic. Review of systems relevant to events:: Neurological, renal, GI. Reason for ICU Addmission:: Failure to thrive, ICU polyneuropathy, ventilator dependence, COVID-19 pneumonia/ARDS. - Medications: Medications reviewed and adjusted accordingly: Yes Physical Exam Vital Signs: Temp Pulse Resp BP Pulse Ox 99.5 F 111 H 20 170/54 H 94 04/16/20 11:10 04/16/20 10:00 04/16/20 11:10 04/16/20 11:10 04/16/20 12:04 Pulse Oximeter Nocturnal Start: 02/08/20 13:55 Freq: RTQ4 Status: Complete Protocol: Document 02/09/20 04:00 LRO (Rec: 02/09/20 05:38 LRO [id number]) Nocturnal Pulse Oximetry Equipment Usage Equipment in Use Oxygen Delivery Method (includes room Room Air air) O2 Sat by Pulse Oximetry (92-100) 95 Continuous SpO2 Machine # 2 Pulse Oximeter Nocturnal Start: 02/10/20 11:39 Freq: RTQ4 Status: Complete Protocol: Document 02/11/20 04:06 PMU (Rec: 02/11/20 05:06 PMU [email or web address]) Nocturnal Pulse Oximetry Equipment Usage Equipment in Use Oxygen Delivery Method (includes room Room Air air) O2 Sat by Pulse Oximetry (92-100) 93 Continuous SpO2 Machine # N2 Intake & Output 04/15/20 04/16/20 04/17/20 06:59 06:59 06:59 Intake Total 570 1600 Output Total 190 3467 0 Balance 380 -1867 0 Weight 104.4 kg 100.7 kg Weight/Height Weight 100.7 kg Height 1.75 m General appearance: PRESENT: no acute distress, well-developed, well-nourished Head exam: PRESENT: atraumatic, normocephalic Eye exam: PRESENT: conjunctiva pink, EOMI, PERRLA. ABSENT: scleral icterus Mouth exam: PRESENT: moist, tongue midline Neck exam: ABSENT: carotid bruit, JVD, lymphadenopathy, thyromegaly Respiratory exam: PRESENT: clear to auscultation kevyn, unlabored. ABSENT: rales, rhonchi, wheezes Cardiovascular exam: PRESENT: RRR, tachycardia. ABSENT: diastolic murmur, rubs, systolic murmur Pulses: PRESENT: normal dorsalis pedis pul GI/Abdominal exam: PRESENT: normal bowel sounds, soft, other - Diverting colostomy. ABSENT: distended, guarding, mass, organolmegaly, rebound, tenderness Extremities exam: PRESENT: full ROM, pedal edema, +1 edema. ABSENT: calf tenderness, clubbing Musculoskeletal exam: PRESENT: other - Atrophy. Muscle wasting. Loss of foot pads. Neurological exam: PRESENT: alert, awake, CN II-XII grossly intact, motor sensory deficit. ABSENT: reflexes normal Psychiatric exam: ABSENT: agitated, anxious Skin exam: PRESENT: other - Stage IV sacral decubitus. Bilateral lower ex tremity unstageable pressure sores. Tubes/Lines: PRESENT: Dialysis catheter, Peg Tube Laboratory/Radiographs Laboratory Results: 04/16/20 08:45 04/15/20 03:37 04/15/20 04/16/20 04/16/20 21:29 00:43 00:43 WBC 11.9 H 17.1 H RBC 2.76 L 2.32 L Hgb 8.1 L 6.8 L Hct 24.2 L 20.6 L MCV 88 89 MCH 29.4 29.2 MCHC 33.5 33.0 RDW 17.0 H 17.3 H Plt Count 250 272 Seg Neutrophils % Not Reportable Carbonic Acid HCO3/H2CO3 Ratio ABG pH ABG pCO2 ABG pO2 ABG HCO3 ABG O2 Saturation ABG Base Excess FiO2 Blood Type O POSITIVE Antibody Screen NEGATIVE 04/16/20 04/16/20 08:45 11:45 WBC 16.2 H RBC 2.95 L Hgb 9.0 L D Hct 25.7 L MCV 87 MCH 30.4 MCHC 34.9 RDW 15.0 H Plt Count 224 Seg Neutrophils % Carbonic Acid 1.16 HCO3/H2CO3 Ratio 23:1 ABG pH 7.47 H ABG pCO2 38.5 ABG pO2 142.6 H ABG HCO3 27.6 H ABG O2 Saturation 99.0 H ABG Base Excess 3.8 FiO2 45% Blood Type Antibody Screen 02/08/20 02/08/20 02/21/20 09:49 13:11 04:50 Troponin I 0.160 0.155 NT-Pro-B Natriuret Pep 5540 H 00098 H 02/26/20 03/09/20 03/20/20 05:35 04:00 06:10 Troponin I NT-Pro-B Natriuret Pep 16016 H 16445 H 26655 H Impressions: Hip/Pelvis X-Ray 02/08/20 00:00 IMPRESSION: No acute fracture. Severe degenerative changes of the left hip. Knee X-Ray 02/08/20 00:00 IMPRESSION: NEGATIVE STUDY OF THE RIGHT KNEE. NO RADIOGRAPHIC EVIDENCE OF ACUTE INJURY. Renal Ultrasound 02/21/20 00:00 IMPRESSION: Increased echogenicity of the renal parenchyma suggestive of underlying chronic medical renal disease. There is no hydronephrosis. There is a Ryan catheter within the urinary bladder. Head CT 03/08/20 08:56 IMPRESSION: MILD CHRONIC CHANGES OF ATROPHY AND MICROVASCULAR ISCHEMIA. NO ACUTE PROCESS. EVIDENCE OF ACUTE STROKE: NO. Chest CT 03/08/20 10:12 IMPRESSION: Extensive bilateral infiltrates. No pneumothorax. KUB X-Ray 04/01/20 00:00 IMPRESSION: NG tube as described. Guidance Fluoroscopy 04/08/20 00:00 IMPRESSION: IMAGE(S) OBTAINED DURING PROCEDURE. Chest X-Ray 04/14/20 05:00 IMPRESSION: IMPROVED AERATION WITH DECREASE IN THE BASILAR AIRSPACE DISEASE. All labs, radiographs, diagnostic studies and EKGs were personally reviewed: Yes In addition, reports of radiographic and diagnostic studies were read: Yes Assessment and Plan - Diagnosis (1) Decubitus ulcer of sacral region, unstageable Is this a current diagnosis for this admission?: Yes Plan: * Present on admission. * Additionally, he has unstageable pressure ulcers on his lower extremities. * General surgery help appreciated. Case discussed with Dr. Talley. Patient was unable to undergo debridement yesterday. This will likely need to be rescheduled for next week. In light of the ongoing bleeding complications, hold anticoagulation. * Wound care service help appreciated. * status post diverting colostomy. (2) Polyneuropathy associated with critical illness Is this a current diagnosis for this admission?: Yes Plan: * Still weak. Needs extensive rehab. * We will inquire as to whether EMG/NCV studies are available at this facility. (3) CKD (chronic kidney disease) stage 5, GFR less than 15 ml/min Is this a current diagnosis for this admission?: Yes Plan: HD on ,,. (4) Nonischemic cardiomyopathy Is this a current diagnosis for this admission?: Yes (5) Atrial fibrillation Qualifiers: Atrial fibrillation type: persistent (not longstanding) Qualified Code(s): I48.19 - Other persistent atrial fibrillation; I48.1 - Persistent atrial fibrillation Is this a current diagnosis for this admission?: Yes Plan: * Digoxin 0.25 mg IV single dose on Monday. * Eliquis on hold for GI bleeding and in anticipation of debridement. (6) Vitamin D deficiency Is this a current diagnosis for this admission?: Yes (7) Hyponatremia Is this a current diagnosis for this admission?: Yes (8) Occult blood in stools Is this a current diagnosis for this admission?: Yes (9) Normocytic anemia Is this a current diagnosis for this admission?: Yes (10) Abnormal LFTs Is this a current diagnosis for this admission?: Yes (11) Darío-Manuel respiration Is this a current diagnosis for this admission?: Yes (12) Gram negative sepsis Is this a current diagnosis for this admission?: Yes (13) Acute respiratory failure due to COVID-19 Is this a current diagnosis for this admission?: Yes Critical Time Critical Time (minutes): 60 Level of Care: ICU -: 1. The care of a critical patient is a dynamic process. This note is a sales and merchandising representative synopsis but static in nature. The timeframe for treatments given in order is not necessarily the actual time these treatments may have been done. 2. This patient requires critical care secondary to ongoing requirements for therapy not offered or safe outside the critical care environment. Transfer to a lower level of care will result in altered life or limb morbidity and mortality. 3. Multidisciplinary rounds completed. 4. ABCDE bundle addressed.
[2020-04-16] MEDS: METOPROLOL TARTRATE PF/INJ 5 MG/5 ML SDV IV PRN (17:45)
[2020-04-17 04:58] LABS: HEMOGLOBIN 8.3 g/dL (13.5-17.0); MEAN CORPUSCULAR HEMOGLOBIN 30.2 pg (27.0-33.4); MEAN CORPUSCULAR HGB CONC 34.5 g/dL (32.0-36.0); MEAN CORPUSCULAR VOLUME 88 fl (80-97); PLATELET COUNT 231 10^3/uL (150-450); RED BLOOD COUNT 2.74 10^6/uL (4.35-5.55); WHITE BLOOD COUNT 12.2 10^3/uL (4.0-10.5)
[2020-04-17] MEDS ORDERED: EPOETIN ALFA-EPBX 2,000 UNIT, EPOETIN ALFA-EPBX 3,000 UNIT, EPOETIN ALFA-EPBX 20,000 UN... IV PRN ×4 (05:00)
[2020-04-17] MEDS ORDERED: HEPARIN SOD (PORCINE) 1,000 UNIT/ML 10 ML VIAL IV PRN (05:00)
[2020-04-17 05:17] LABS: ANION GAP 7 (5-19); BLOOD UREA NITROGEN 51 mg/dL (7-20); CARBON DIOXIDE 27 mmol/L (22-30); CHLORIDE 102 mmol/L (98-107); GLUCOSE 114 mg/dL (75-110); POTASSIUM 3.4 mmol/L (3.6-5.0)
--- NOTE | 2020-04-17 10:45 | PDOC PROGRESS REPORT ---
Subjective Progress Note for:: 04/17/20 Reason For Visit: Patient seen in ICU today on dialysis. Currently undergoing dialysis without any issues. Status post tracheostomy and he responds to questions by nodding his head. He had a lower GI bleed the other day and was transfused. Unidentified source. Currently hemodynamically stable. Labs and medications were reviewed. Dialysis orders were reviewed with the treating dialysis nurse. Physical Exam Vital Signs: Temp Pulse Resp BP Pulse Ox 99.2 F 106 H 18 153/68 H 99 04/17/20 07:59 04/17/20 10:00 04/17/20 10:00 04/17/20 10:00 04/17/20 10:00 Pulse Oximeter Nocturnal Start: 02/08/20 13:55 Freq: RTQ4 Status: Complete Protocol: Document 02/09/20 04:00 LRO (Rec: 02/09/20 05:38 LRO [id number]) Nocturnal Pulse Oximetry Equipment Usage Equipment in Use Oxygen Delivery Method (includes room Room Air air) O2 Sat by Pulse Oximetry (92-100) 95 Continuous SpO2 Machine # 2 Pulse Oximeter Nocturnal Start: 02/10/20 11:39 Freq: RTQ4 Status: Complete Protocol: Document 02/11/20 04:06 PMU (Rec: 02/11/20 05:06 PMU [email or web address]) Nocturnal Pulse Oximetry Equipment Usage Equipment in Use Oxygen Delivery Method (includes room Room Air air) O2 Sat by Pulse Oximetry (92-100) 93 Continuous SpO2 Machine # N2 Intake & Output 04/16/20 04/17/20 04/18/20 06:59 06:59 06:59 Intake Total 5249 501 5465 Output Total 3467 0 3000 Balance -1867 530 -2000 Weight 100.7 kg 102.8 kg General appearance: PRESENT: no acute distress Respiratory exam: PRESENT: clear to auscultation kevyn, decreased breath sounds. ABSENT: crackles Cardiovascular exam: PRESENT: +S1, +S2 GI/Abdominal exam: PRESENT: normal bowel sounds, soft. ABSENT: organomegaly, tenderness Extremities exam: PRESENT: pedal edema Neurological exam: PRESENT: alert, awake Results Laboratory Results: 04/17/20 04:33 04/17/20 04:33 04/16/20 04/17/20 04/17/20 11:45 04:33 04:33 WBC 12.2 H RBC 2.74 L Hgb 8.3 L Hct 24.0 L MCV 88 MCH 30.2 MCHC 34.5 RDW 16.0 H Plt Count 231 Carbonic Acid 1.16 HCO3/H2CO3 Ratio 23:1 ABG pH 7.47 H ABG pCO2 38.5 ABG pO2 142.6 H ABG HCO3 27.6 H ABG O2 Saturation 99.0 H ABG Base Excess 3.8 FiO2 45% Sodium 135.5 L Potassium 3.4 L Chloride 102 Carbon Dioxide 27 Anion Gap 7 BUN 51 H Creatinine 1.61 H Est GFR ( Amer) 51 L Glucose 114 H Calcium 9.0 02/08/20 02/08/20 02/21/20 09:49 13:11 04:50 Troponin I 0.160 0.155 NT-Pro-B Natriuret Pep 5540 H 04391 H 02/26/20 03/09/20 03/20/20 05:35 04:00 06:10 Troponin I NT-Pro-B Natriuret Pep 70043 H 50551 H 24090 H Impressions: Hip/Pelvis X-Ray 02/08/20 00:00 IMPRESSION: No acute fracture. Severe degenerative changes of the left hip. Knee X-Ray 02/08/20 00:00 IMPRESSION: NEGATIVE STUDY OF THE RIGHT KNEE. NO RADIOGRAPHIC EVIDENCE OF ACUTE INJURY. Renal Ultrasound 02/21/20 00:00 IMPRESSION: Increased echogenicity of the renal parenchyma suggestive of underlying chronic medical renal disease. There is no hydronephrosis. There is a Ryan catheter within the urinary bladder. Head CT 03/08/20 08:56 IMPRESSION: MILD CHRONIC CHANGES OF ATROPHY AND MICROVASCULAR ISCHEMIA. NO ACUTE PROCESS. EVIDENCE OF ACUTE STROKE: NO. Chest CT 03/08/20 10:12 IMPRESSION: Extensive bilateral infiltrates. No pneumothorax. KUB X-Ray 04/01/20 00:00 IMPRESSION: NG tube as described. Guidance Fluoroscopy 04/08/20 00:00 IMPRESSION: IMAGE(S) OBTAINED DURING PROCEDURE. Chest X-Ray 04/14/20 05:00 IMPRESSION: IMPROVED AERATION WITH DECREASE IN THE BASILAR AIRSPACE DISEASE. Assessment & Plan - Diagnosis (1) Acute kidney injury superimposed on chronic kidney disease Is this a current diagnosis for this admission?: Yes Plan: Acute on chronic kidney disease with patient having underlying baseline creatinine of around 1.7-2. Currently remains anuric. Initiated hemodialysis through a temporary catheter. Dialysis is ongoing. Plan to remove 2-3 L of fluid as tolerated. Discussed and reviewed dialysis orders with the treating dialysis nurse. S/P IJ PermCath placement. Awaiting placement. (2) Acute on chronic combined systolic (congestive) and diastolic (congestive) heart failure Is this a current diagnosis for this admission?: Yes Plan: Improved monitor and see response to gentle dialysis. (3) Atrial fibrillation Qualifiers: Atrial fibrillation type: persistent (not longstanding) Qualified Code(s): I48.19 - Other persistent atrial fibrillation; I48.1 - Persistent atrial fibrillation Is this a current diagnosis for this admission?: Yes Plan: Currently rate controlled. Monitor. (4) COVID-19 virus infection Is this a current diagnosis for this admission?: Yes Plan: His last serology for COVID 19 was done on 03/30 and was negative. (5) Anemia Qualifiers: Anemia type: iron deficiency Is this a current diagnosis for this admission?: Yes Plan: Combination of anemia of chronic disease and acute lower GI bleed for which she was transfused yesterday. Patient is on erythropoietin. (6) Hyponatremia Is this a current diagnosis for this admission?: Yes Plan: Stable and see response to fluid removal. Monitor. (7) Decubitus ulcer of sacral region, unstageable Is this a current diagnosis for this admission?: Yes Plan: Polymicrobial. Currently off all antibiotics and being managed by towel stretcher. (8) MRSA pneumonia Qualifiers: Laterality: bilateral Lung location: unspecified part of lung Qualified Code(s): J15.212 - Pneumonia due to Methicillin resistant Staphylococcus aureus Is this a current diagnosis for this admission?: Yes Plan: Resolved.
[2020-04-17] MEDS: NYSTATIN TOPICAL POWDER 15 GM TP SCH ×2 (10:56→21:05)
[2020-04-17] MEDS: CALCITRIOL 1 MCG/ML ORAL SOLN 15 ML NG SCH (10:56)
[2020-04-17] MEDS: METOPROLOL TARTRATE 25 MG TABLET NG SCH ×2 (10:57→21:04)
[2020-04-17] MEDS: CITALOPRAM HYDROBROMIDE 20 MG TABLET NG SCH (10:57)
[2020-04-17] MEDS: AMINO AC/PROTEIN HYDR/WHEY PRO 11 GM/45 ML PKT NG SCH ×3 (10:57→17:48)
[2020-04-17] MEDS: CHOLECALCIFEROL (D3) 1,000 UNIT (25 MCG) TABLET NG SCH ×3 (10:57→17:47)
[2020-04-17] MEDS: PANTOPRAZOLE SODIUM 40 MG VIAL IV SCH ×2 (10:57→21:04)
[2020-04-17] MEDS: COLLAGENASE CLOSTRIDIUM HIST. OINT 30 GM TOP SCH (10:58)
--- NOTE | 2020-04-17 19:28 | PDOC CRITICAL CARE PROG REPORT ---
General Date:: 04/17/20 ICU Day:: 65 Ventilator Day:: 69 Hospital Day:: 69 Resuscitation Status: Full Code Events in the past 12 to 24 Hours:: This 69-year-old male was admitted on 02/08/2020 with dyspnea and leg weakness. He reported falling out of his truck a few days prior to presentation. He transferred to the ICU on 02/12/2020 after requiring endotracheal intubation due to acute respiratory failure secondary to COVID-19 pneumonia. He has required prolonged mechanical ventilatory support and underwent tracheostomy on 03/11/2020. He also developed acute kidney injury, which has left him dialysis dependent at this point. He underwent PermCath placement on date. He also had percutaneous gastrostomy placement along with diverting colostomy. His hospitalization has been complicated by development of a gigantic stage IV sacral decubitus ulcer which has undergone multiple debridements. 04/13: Off Eliquis. Nursing staff reports that, over the weekend, the patient experienced what appeared to be lower GI bleed. This was evaluated by Dr. Pineda (general surgery). Flexible sigmoidoscopy failed to reveal a definite source. The patient's rectum was packed with gauze, which did provide hemo stasis. He remained hemodynamically stable. Still in atrial fibrillation, rate controlled. Awake, alert. The patient's mood is considerably better than when I last saw him about a week ago. He is definitely more interactive. Answers yes/no appropriately and promptly. He is still certainly very weak. He does fruit cutter with his right hand promptly, albeit obviously very weak. His left hand and both lower extremities do not even appear to flicker on command. He had dialysis this morning. Case was discussed with Dr. Pineda. Currently, the patient is off antibiotics. 04/14: No significant change. 04/15: No significant change. Case discussed with physical therapy and case management. Awaiting a facility that can provide hemodialysis as well as nighttime mechanical ventilatory support. Lower GI bleed appears to be controlled. Patient was given a one-time dose of digoxin yesterday after his digoxin level finally reached a low-normal level. Currently, and normal sinus rhythm/sinus tachycardia. Hypertensive. 04/16: Overnight, patient experienced acute lower GI bleeding. General surgery help appreciated. Bleeding focus could not be identified. Large clot was passed per rectum. Additionally, bloody material was collecting in the colostomy bag. Hemoglobin dropped to 6.8. The patient urgently was transfused 2 units PRBC with subsequent rise in hemoglobin to 9.0. He did become hypotensive. Blood pressure improved with transfusion. He was placed back on ventilatory support with a set rate; however, at this time he is back on pressure support and breathing comfortably. Got digoxin 0.25 mg IV single dose yesterday. Repeat digoxin level today is therapeutic. 04/17: Patient is back to tolerating trach collar during the day. Goes on ventilator for support at night. Had dialysis this morning. 2 L removed. Awake, alert. Seems to be in better spirits. Much more prompt with yes/no answers. Right hand fruit cutter strength is improving. Afebrile. WBC count 12.2. Afebrile x24 hours. Currently off antibiotics. Review of systems relevant to events:: Neurological, renal, GI. Reason for ICU Addmission:: Failure to thrive, ICU polyneuropathy, ventilator dependence, COVID-19 pneumonia/ARDS. - Medications: Medications reviewed and adjusted accordingly: Yes Physical Exam Vital Signs: Temp Pulse Resp BP Pulse Ox 99.5 F 108 H 24 H 121/49 L 100 04/17/20 15:56 04/17/20 15:56 04/17/20 15:56 04/17/20 15:56 04/17/20 15:56 Pulse Oximeter Nocturnal Start: 02/08/20 13:55 Freq: RTQ4 Status: Complete Protocol: Document 02/09/20 04:00 LRO (Rec: 02/09/20 05:38 LRO [email or web address]) Nocturnal Pulse Oximetry Equipment Usage Equipment in Use Oxygen Delivery Method (includes room Room Air air) O2 Sat by Pulse Oximetry (92-100) 95 Continuous SpO2 Machine # 2 Pulse Oximeter Nocturnal Start: 02/10/20 11:39 Freq: RTQ4 Status: Complete Protocol: Document 02/11/20 04:06 PMU (Rec: 02/11/20 05:06 PMU [email or web address]) Nocturnal Pulse Oximetry Equipment Usage Equipment in Use Oxygen Delivery Method (includes room Room Air air) O2 Sat by Pulse Oximetry (92-100) 93 Continuous SpO2 Machine # N2 Intake & Output 04/16/20 04/17/20 04/18/20 06:59 06:59 06:59 Intake Total 0985 586 1335 Output Total 3467 0 3450 Balance -1867 530 -2450 Weight 100.7 kg 102.8 kg Weight/Height Weight 102.8 kg Height 1.75 m General appearance: PRESENT: no acute distress, other - [place] ill in appearance Head exam: PRESENT: atraumatic, normocephalic Eye exam: PRESENT: conjunctiva pink, EOMI, PERRLA. ABSENT: scleral icterus Mouth exam: PRESENT: moist, tongue midline Neck exam: PRESENT: tracheostomy. ABSENT: carotid bruit, JVD, lymphadenopathy, thyromegaly Respiratory exam: PRESENT: rales, rhonchi, symmetrical, unlabored. ABSENT: prolonged expiratory phas, tachypnea, wheezes Cardiovascular exam: PRESENT: RRR. ABSENT: diastolic murmur, rubs, systolic murmur Pulses: PRESENT: normal dorsalis pedis pul GI/Abdominal exam: PRESENT: normal bowel sounds, soft, other - Diverting colostomy with normal-appearing output. ABSENT: distended, guarding, mass, organolmegaly, rebound, tenderness Rectal exam: PRESENT: other - Curlex packing Extremities exam: PRESENT: other - Atrophy of the foot pad noted bilaterally. ABSENT: calf tenderness, clubbing, pedal edema Neurological exam: PRESENT: awake, CN II-XII grossly intact, motor sensory deficit - Left upper extremity and bilateral lower extremity motor strength 0 out of 5. Psychiatric exam: PRESENT: appropriate affect. ABSENT: agitated, anxious Skin exam: PRESENT: other - Stage IV sacral decubitus. Bilateral lower extremity unstageable deep tissue injury Tubes/Lines: PRESENT: Dialysis catheter, Peg Tube Laboratory/Radiographs Laboratory Results: 04/17/20 04:33 04/17/20 04:33 04/17/20 04/17/20 04:33 04:33 WBC 12.2 H RBC 2.74 L Hgb 8.3 L Hct 24.0 L MCV 88 MCH 30.2 MCHC 34.5 RDW 16.0 H Plt Count 231 Sodium 135.5 L Potassium 3.4 L Chloride 102 Carbon Dioxide 27 Anion Gap 7 BUN 51 H Creatinine 1.61 H Est GFR ( Amer) 51 L Glucose 114 H Calcium 9.0 02/08/20 02/08/20 02/21/20 09:49 13:11 04:50 Troponin I 0.160 0.155 NT-Pro-B Natriuret Pep 5540 H 13908 H 02/26/20 03/09/20 03/20/20 05:35 04:00 06:10 Troponin I NT-Pro-B Natriuret Pep 43480 H 83277 H 27965 H Impressions: Hip/Pelvis X-Ray 02/08/20 00:00 IMPRESSION: No acute fracture. Severe degenerative changes of the left hip. Knee X-Ray 02/08/20 00:00 IMPRESSION: NEGATIVE STUDY OF THE RIGHT KNEE. NO RADIOGRAPHIC EVIDENCE OF ACUTE INJURY. Renal Ultrasound 02/21/20 00:00 IMPRESSION: Increased echogenicity of the renal parenchyma suggestive of underlying chronic medical renal disease. There is no hydronephrosis. There is a Ryan catheter within the urinary bladder. Head CT 03/08/20 08:56 IMPRESSION: MILD CHRONIC CHANGES OF ATROPHY AND MICROVASCULAR ISCHEMIA. NO ACUTE PROCESS. EVIDENCE OF ACUTE STROKE: NO. Chest CT 03/08/20 10:12 IMPRESSION: Extensive bilateral infiltrates. No pneumothorax. KUB X-Ray 04/01/20 00:00 IMPRESSION: NG tube as described. Guidance Fluoroscopy 04/08/20 00:00 IMPRESSION: IMAGE(S) OBTAINED DURING PROCEDURE. Chest X-Ray 04/14/20 05:00 IMPRESSION: IMPROVED AERATION WITH DECREASE IN THE BASILAR AIRSPACE DISEASE. All labs, radiographs, diagnostic studies and EKGs were personally reviewed: Yes In addition, reports of radiographic and diagnostic studies were read: Yes Assessment and Plan - Diagnosis (1) Decubitus ulcer of sacral region, unstageable Is this a current diagnosis for this admission?: Yes Plan: * Present on admission. * Additionally, he has unstageable pressure ulcers on his lower extremities. * General surgery help appreciated. Case discussed with Dr. Talley. Patient was unable to undergo debridement yesterday. This will likely need to be rescheduled for next week. In light of the ongoing bleeding complications, hold anticoagulation. * Wound care service help appreciated. * status post diverting colostomy. (2) Polyneuropathy associated with critical illness Is this a current diagnosis for this admission?: Yes Plan: * Still weak. Needs extensive rehab. * We will inquire as to whether EMG/NCV studies are available at this facility. (3) CKD (chronic kidney disease) stage 5, GFR less than 15 ml/min Is this a current diagnosis for this admission?: Yes Plan: HD on m,w,f. (4) Nonischemic cardiomyopathy Is this a current diagnosis for this admission?: Yes Plan: LVEF 25-30% with grade 3 diastolic dysfunction on 2D echo (02/10/2020). (5) Atrial fibrillation Qualifiers: Atrial fibrillation type: persistent (not longstanding) Qualified Code(s): I48.19 - Other persistent atrial fibrillation; I48.1 - Persistent atrial fibrillation Is this a current diagnosis for this admission?: Yes Plan: * Digoxin 0.25 mg IV single dose on Monday. Repeat digoxin level on Monday morning. * Eliquis on hold for GI bleeding and in anticipation of debridement. (6) Vitamin D deficiency Is this a current diagnosis for this admission?: Yes (7) Hyponatremia Is this a current diagnosis for this admission?: Yes (8) Occult blood in stools Is this a current diagnosis for this admission?: Yes (9) Normocytic anemia Is this a current diagnosis for this admission?: Yes (10) Abnormal LFTs Is this a current diagnosis for this admission?: Yes (11) Darío-Manuel respiration Is this a current diagnosis for this admission?: Yes (12) Gram negative sepsis Is this a current diagnosis for this admission?: Yes (13) Acute respiratory failure due to COVID-19 Is this a current diagnosis for this admission?: Yes Critical Time Critical Time (minutes): 30 Level of Care: ICU -: 1. The care of a critical patient is a dynamic process. This note is a medical device sales representative synopsis but static in nature. The timeframe for treatments given in order is not necessarily the actual time these treatments may have been done. 2. This patient requires critical care secondary to ongoing requirements for therapy not offered or safe outside the critical care environment. Transfer to a lower level of care will result in altered life or limb morbidity and mortality. 3. Multidisciplinary rounds completed. 4. ABCDE bundle addressed.
[2020-04-18] MEDS: ACETAMINOPHEN SOLN 325 MG/10.15 ML UDCUP NG PRN (01:24)
[2020-04-18] MEDS: HYDROMORPHONE HCL INJ/PF 2 MG/ML AMPULE IV PRN ×2 (01:25→13:18)
[2020-04-18] MEDS: AMINO AC/PROTEIN HYDR/WHEY PRO 11 GM/45 ML PKT NG SCH ×3 (09:18→17:10)
[2020-04-18] MEDS: PANTOPRAZOLE SODIUM 40 MG VIAL IV SCH ×2 (09:18→21:37)
[2020-04-18] MEDS: CHOLECALCIFEROL (D3) 1,000 UNIT (25 MCG) TABLET NG SCH ×3 (09:19→17:09)
[2020-04-18] MEDS: CITALOPRAM HYDROBROMIDE 20 MG TABLET NG SCH (09:19)
[2020-04-18] MEDS: METOPROLOL TARTRATE 25 MG TABLET NG SCH ×2 (09:19→21:36)
[2020-04-18] MEDS: COLLAGENASE CLOSTRIDIUM HIST. OINT 30 GM TOP SCH (09:19)
[2020-04-18] MEDS: NYSTATIN TOPICAL POWDER 15 GM TP SCH ×2 (09:19→21:37)
--- NOTE | 2020-04-18 17:58 | PDOC CRITICAL CARE PROG REPORT ---
General Date:: 04/18/20 ICU Day:: 66 Hospital Day:: 70 Resuscitation Status: Full Code Events in the past 12 to 24 Hours:: This 69-year-old male was admitted on 02/08/2020 with dyspnea and leg weakness. He reported falling out of his truck a few days prior to presentation. He transferred to the ICU on 02/12/2020 after requiring endotr acheal intubation due to acute respiratory failure secondary to COVID-19 pneumonia. He has required prolonged mechanical ventilatory support and underwent tracheostomy on 03/11/2020. He also developed acute kidney injury, which has left him dialysis dependent at this point. He underwent PermCath p lacement on date. He also had percutaneous gastrostomy placement along with diverting colostomy. His hospitalization has been complicated by development of a gigantic stage IV sacral decubitus ulcer which has undergone multiple debridements. 04/13: Off Eliquis. Nursing staff reports that, over the weekend, the patient experienced what appeared to be lower GI bleed. This was evaluated by Dr. Pineda (general surgery). Flexible sigmoidoscopy failed to reveal a definite source. The patient's rectum was packed with gauze, which did provide hemostasis. He remained hemodynamically stable. Still in atrial fibrillation, rate controlled. Awake, alert. The patient's mood is considerably better than when I last saw him about a week ago. He is definitely more interactive. Answers yes/no appropriately and promptly. He is still certainly very weak. He does baker second with his right hand promptly, albeit obviously very weak. His left hand and both lower extremities do not even appear to flicker on command. He had dialysis this morning. Case was discussed with Dr. Pineda. Currently, the patient is off antibiotics. 04/14: No significant change. 04/15: No significant change. Case discussed with physical therapy and case management. Awaiting a facility that can provide hemodialysis as well as nighttime mechanical ventilatory support. Lower GI bleed appears to be controlled. Patient was given a one-time dose of digoxin yesterday after his digoxin level finally reached a low-normal level. Currently, and normal sinus rhythm/sinus tachycardia. Hypertensive. 04/16: Overnight, patient experienced acute lower GI bleeding. General surgery help appreciated. Bleeding focus could not be identified. Large clot was passed per rectum. Additionally, bloody material was collecting in the colostomy bag. Hemoglobin dropped to 6.8. The patient urgently was transfused 2 units PRBC with subsequent rise in hemoglobin to 9.0. He did become hypotensive. Blood pressure improved with transfusion. He was placed back on ventilatory support with a set rate; however, at this time he is back on pressure support and breathing comfortably. Got digoxin 0.25 mg IV single dose yesterday. Repeat digoxin level today is therapeutic. 04/17: Patient is back to tolerating trach collar during the day. Goes on ventilator for support at night. Had dialysis this morning. 2 L removed. Awake, alert. Seems to be in better spirits. Much more prompt with yes/no answers. Right hand baker second strength is improving. Afebrile. WBC count 12.2. Afebrile x24 hours. Currently off antibiotics. 04/18: On trach collar. Slept well on vent last night. Awake and alert. Afebrile. Lab holiday today. On Nepro + Prosource. Review of systems relevant to events:: Neurological, renal, GI. Reason for ICU Addmission:: Failure to thrive, ICU polyneuropathy, ventilator dependence, COVID-19 pneumonia/ARDS. - Medications: Medications reviewed and adjusted accordingly: Yes Physical Exam Vital Signs: Temp Pulse Resp BP Pulse Ox 98.9 F 98 20 122/46 L 94 04/18/20 08:00 04/18/20 10:00 04/18/20 10:00 04/18/20 10:00 04/18/20 10:00 Pulse Oximeter Nocturnal Start: 02/08/20 13:55 Freq: RTQ4 Status: Complete Protocol: Document 02/09/20 04:00 LRO (Rec: 02/09/20 05:38 LRO [id number]) Nocturnal Pulse Oximetry Equipment Usage Equipment in Use Oxygen Delivery Method (includes room Room Air air) O2 Sat by Pulse Oximetry (92-100) 95 Continuous SpO2 Machine # 2 Pulse Oximeter Nocturnal Start: 02/10/20 11:39 Freq: RTQ4 Status: Complete Protocol: Document 02/11/20 04:06 PMU (Rec: 02/11/20 05:06 PMU [email or web address]) Nocturnal Pulse Oximetry Equipment Usage Equipment in Use Oxygen Delivery Method (includes room Room Air air) O2 Sat by Pulse Oximetry (92-100) 93 Continuous SpO2 Machine # N2 Intake & Output 04/17/20 04/18/20 04/19/20 06:59 06:59 06:59 Intake Total 530 2055 180 Output Total 0 3450 0 Balance 530 -1395 180 Weight 102.8 kg 101.4 kg Weight/Height Weight 101.4 kg Height 1.75 m General appearance: PRESENT: no acute distress, well-developed, well-nourished Head exam: PRESENT: atraumatic, normocephalic Eye exam: PRESENT: conjunctiva pink, EOMI, PERRLA. ABSENT: scleral icterus Mouth exam: PRESENT: moist, tongue midline Neck exam: PRESENT: tracheostomy. ABSENT: carotid bruit, JVD, lymphadenopathy, thyromegaly Respiratory exam: PRESENT: clear to auscultation kevyn. ABSENT: rales, rhonchi, wheezes Cardiovascular exam: PRESENT: RRR. ABSENT: diastolic murmur, rubs, systolic murmur Pulses: PRESENT: normal dorsalis pedis pul GI/Abdominal exam: PRESENT: normal bowel sounds, soft, other - Diverting colostomy. ABSENT: distended, guarding, mass, organolmegaly, rebound, tenderness Extremities exam: PRESENT: full ROM, other - Atrophy of the foot pads. ABSENT: calf tenderness, clubbing, pedal edema Neurological exam: PRESENT: alert, awake, CN II-XII grossly intact, motor sensory deficit Psychiatric exam: PRESENT: appropriate affect. ABSENT: agitated, anxious Skin exam: PRESENT: dry, intact, warm. ABSENT: cyanosis, rash Tubes/Lines: PRESENT: Dialysis catheter, Peg Tube Laboratory/Radiographs Laboratory Results: 04/17/20 04:33 04/17/20 04:33 02/08/20 02/08/20 02/21/20 09:49 13:11 04:50 Troponin I 0.160 0.155 NT-Pro-B Natriuret Pep 5540 H 52757 H 02/26/20 03/09/20 03/20/20 05:35 04:00 06:10 Troponin I NT-Pro-B Natriuret Pep 91798 H 58542 H 70574 H Impressions: Hip/Pelvis X-Ray 02/08/20 00:00 IMPRESSION: No acute fracture. Severe degenerative changes of the left hip. Knee X-Ray 02/08/20 00:00 IMPRESSION: NEGATIVE STUDY OF THE RIGHT KNEE. NO RADIOGRAPHIC EVIDENCE OF ACUTE INJURY. Renal Ultrasound 02/21/20 00:00 IMPRESSION: Increased echogenicity of the renal parenchyma suggestive of underlying chronic medical renal disease. There is no hydronephrosis. There is a Ryan catheter within the urinary bladder. Head CT 03/08/20 08:56 IMPRESSION: MILD CHRONIC CHANGES OF ATROPHY AND MICROVASCULAR ISCHEMIA. NO ACUTE PROCESS. EVIDENCE OF ACUTE STROKE: NO. Chest CT 03/08/20 10:12 IMPRESSION: Extensive bilateral infiltrates. No pneumothorax. KUB X-Ray 04/01/20 00:00 IMPRESSION: NG tube as described. Guidance Fluoroscopy 04/08/20 00:00 IMPRESSION: IMAGE(S) OBTAINED DURING PROCEDURE. Chest X-Ray 04/14/20 05:00 IMPRESSION: IMPROVED AERATION WITH DECREASE IN THE BASILAR AIRSPACE DISEASE. All labs, radiographs, diagnostic studies and EKGs were personally reviewed: Yes In addition, reports of radiographic and diagnostic studies were read: Yes Assessment and Plan - Diagnosis (1) Decubitus ulcer of sacral region, unstageable Is this a current diagnosis for this admission?: Yes Plan: * Present on admission. * Additionally, he has unstageable pressure ulcers on his lower extremities. * General surgery help appreciated. Case discussed with Dr. Talley. Patient was unable to undergo debridement yesterday. This will likely need to be rescheduled for next week. In light of the ongoing bleeding complications, hold anticoagulation. * Wound care service help appreciated. * Status post diverting colostomy. (2) Polyneuropathy associated with critical illness Is this a current diagnosis for this admission?: Yes (3) CKD (chronic kidney disease) stage 5, GFR less than 15 ml/min Is this a current diagnosis for this admission?: Yes Plan: HD on m,,. (4) Nonischemic cardiomyopathy Is this a current diagnosis for this admission?: Yes (5) Atrial fibrillation Qualifiers: Atrial fibrillation type: persistent (not longstanding) Qualified Code(s): I48.19 - Other persistent atrial fibrillation; I48.1 - Persistent atrial fibrillation Is this a current diagnosis for this admission?: Yes Plan: * Digoxin 0.25 mg IV single dose on Monday. Repeat digoxin level on Monday morning. I anticipate this patient will likely be able to gain rate control with digoxin 0.25 mg weekly. * Eliquis on hold for GI bleeding and in anticipation of debridement. (6) Vitamin D deficiency Is this a current diagnosis for this admission?: Yes (7) Hyponatremia Is this a current diagnosis for this admission?: Yes (8) Occult blood in stools Is this a current diagnosis for this admission?: Yes Plan: * Resolved. Suspected to be secondary to ulceration of the mucosa (perhaps related to fecal management system). (9) Normocytic anemia Is this a current diagnosis for this admission?: Yes Plan: Monitor hemoglobin. (10) Abnormal LFTs Is this a current diagnosis for this admission?: Yes (11) Gram negative sepsis Is this a current diagnosis for this admission?: Yes (12) Acute blood loss anemia Is this a current diagnosis for this admission?: Yes Plan: Stable after transfusion on 04/16. Monitor hemoglobin. (13) Darío-Manuel respiration Is this a current diagnosis for this admission?: Yes (14) Acute respiratory failure due to COVID-19 Is this a current diagnosis for this admission?: Yes Plan: He finally tested negative on 03/30. Underwent tracheostomy for prolonged mechanical ventilatory support. Now tolerating trach collar during the day. He uses mechanical ventilatory support at night due to previously witnessed episodes of sleep apnea, suspected to have a central component. Plan Summary: Anticipating/awaiting LTAC placement. Critical Time Critical Time (minutes): 45 Level of Care: ICU -: 1. The care of a critical patient is a dynamic process. This note is a in store representative synopsis but static in nature. The timeframe for treatments given in order is not necessarily the actual time these treatments may have been done. 2. This patient requires critical care secondary to ongoing requirements for therapy not offered or safe outside the critical care environment. Transfer to a lower level of care will result in altered life or limb morbidity and mortality. 3. Multidisciplinary rounds completed. 4. ABCDE bundle addressed.
[2020-04-19] MEDS: CHOLECALCIFEROL (D3) 1,000 UNIT (25 MCG) TABLET NG SCH ×3 (10:00→17:15)
[2020-04-19] MEDS: PANTOPRAZOLE SODIUM 40 MG VIAL IV SCH (10:00)
[2020-04-19] MEDS: METOPROLOL TARTRATE 25 MG TABLET NG SCH (10:00)
[2020-04-19] MEDS: CITALOPRAM HYDROBROMIDE 20 MG TABLET NG SCH (10:00)
[2020-04-19] MEDS: AMINO AC/PROTEIN HYDR/WHEY PRO 11 GM/45 ML PKT NG SCH ×3 (10:00→17:15)
[2020-04-19] MEDS: NYSTATIN TOPICAL POWDER 15 GM TP SCH (10:01)
[2020-04-19] MEDS: COLLAGENASE CLOSTRIDIUM HIST. OINT 30 GM TOP SCH (10:04)
[2020-04-19] MEDS ORDERED: CITALOPRAM HYDROBROMIDE 20 MG TABLET PO ONE (11:30)
[2020-04-19] MEDS: METOPROLOL TARTRATE PF/INJ 5 MG/5 ML SDV IV PRN (13:31)
[2020-04-19] MEDS ORDERED: CITALOPRAM HYDROBROMIDE 20 MG TABLET NG ONE (14:00)
--- NOTE | 2020-04-19 18:11 | PDOC CRITICAL CARE PROG REPORT ---
General Date:: 04/19/20 ICU Day:: 67 Hospital Day:: 71 Resuscitation Status: Full Code Events in the past 12 to 24 Hours:: This 69-year-old male was admitted on 02/08/2020 with dyspnea and leg weakness. He reported falling out of his truck a few days prior to presentation. He transferred to the ICU on 02/12/2020 after requiring endotr acheal intubation due to acute respiratory failure secondary to COVID-19 pneumonia. He has required prolonged mechanical ventilatory support and underwent tracheostomy on 03/11/2020. He also developed acute kidney injury, which has left him dialysis dependent at this point. He underwent PermCath p lacement on date. He also had percutaneous gastrostomy placement along with diverting colostomy. His hospitalization has been complicated by development of a gigantic stage IV sacral decubitus ulcer which has undergone multiple debridements. 04/13: Off Eliquis. Nursing staff reports that, over the weekend, the patient experienced what appeared to be lower GI bleed. This was evaluated by Dr. Pineda (general surgery). Flexible sigmoidoscopy failed to reveal a definite source. The patient's rectum was packed with gauze, which did provide hemostasis. He remained hemodynamically stable. Still in atrial fibrillation, rate controlled. Awake, alert. The patient's mood is considerably better than when I last saw him about a week ago. He is definitely more interactive. Answers yes/no appropriately and promptly. He is still certainly very weak. He does assistant administrator with his right hand promptly, albeit obviously very weak. His left hand and both lower extremities do not even appear to flicker on command. He had dialysis this morning. Case was discussed with Dr. Pineda. Currently, the patient is off antibiotics. 04/14: No significant change. 04/15: No significant change. Case discussed with physical therapy and case management. Awaiting a facility that can provide hemodialysis as well as nighttime mechanical ventilatory support. Lower GI bleed appears to be controlled. Patient was given a one-time dose of digoxin yesterday after his digoxin level finally reached a low-normal level. Currently, and normal sinus rhythm/sinus tachycardia. Hypertensive. 04/16: Overnight, patient experienced acute lower GI bleeding. General surgery help appreciated. Bleeding focus could not be identified. Large clot was passed per rectum. Additionally, bloody material was collecting in the colostomy bag. Hemoglobin dropped to 6.8. The patient urgently was transfused 2 units PRBC with subsequent rise in hemoglobin to 9.0. He did become hypotensive. Blood pressure improved with transfusion. He was placed back on ventilatory support with a set rate; however, at this time he is back on pressure support and breathing comfortably. Got digoxin 0.25 mg IV single dose yesterday. Repeat digoxin level today is therapeutic. 04/17: Patient is back to tolerating trach collar during the day. Goes on ventilator for support at night. Had dialysis this morning. 2 L removed. Awake, alert. Seems to be in better spirits. Much more prompt with yes/no answers. Right hand assistant administrator strength is improving. Afebrile. WBC count 12.2. Afebrile x24 hours. Currently off antibiotics. 04/18: On trach collar. Slept well on vent last night. Awake and alert. Afebrile. Lab holiday today. On Nepro + Prosource. 04/19: On trach collar. Strong cough. Secretions are bhakta. Afebrile. Downtrending WBC count (12.2) no significant interval change. Lab holiday again today. Scheduled for dialysis in a.m., prompting need for updated labs. Hoping that an LTAC bed will become available soon. On Nepro + Prosource. Review of systems relevant to events:: Neurological, renal, GI. Reason for ICU Addmission:: Failure to thrive, ICU polyneuropathy, ventilator dependence, COVID-19 pneumonia/ARDS. - Medications: Medications reviewed and adjusted accordingly: Yes Physical Exam Vital Signs: Temp Pulse Resp BP Pulse Ox 99.7 F 114 H 28 H 133/55 H 100 04/19/20 08:00 04/19/20 08:58 04/19/20 08:00 04/19/20 08:00 04/19/20 08:13 Pulse Oximeter Nocturnal Start: 02/08/20 13:5 5 Freq: RTQ4 Status: Complete Protocol: Document 02/09/20 04:00 LRO (Rec: 02/09/20 05:38 LRO [email or web address]) Nocturnal Pulse Oximetry Equipment Usage Equipment in Use Oxygen Delivery Method (includes room Room Air air) O2 Sat by Pulse Oximetry (92-100) 95 Continuous SpO2 Machine # 2 Pulse Oximeter Nocturnal Start: 02/10/20 11:39 Freq: RTQ4 Status: Complete Protocol: Document 02/11/20 04:06 PMU (Rec: 02/11/20 05:06 PMU [email or web address]) Nocturnal Pulse Oximetry Equipment Usage Equipment in Use Oxygen Delivery Method (includes room Room Air air) O2 Sat by Pulse Oximetry (92-100) 93 Continuous SpO2 Machine # N2 Intake & Output 04/18/20 04/19/20 04/20/20 06:59 06:59 06:59 Intake Total 2055 985 Output Total 3450 100 0 Balance -1395 885 0 Weight 101.4 kg 99.6 kg Weight/Height Weight 99.6 kg Height 1.75 m General appearance: PRESENT: no acute distress, well-developed, well-nourished Head exam: PRESENT: atraumatic, normocephalic Eye exam: PRESENT: conjunctiva pink, EOMI, PERRLA. ABSENT: scleral icterus Mouth exam: PRESENT: moist, tongue midline Neck exam: PRESENT: tracheostomy. ABSENT: carotid bruit, JVD, lymphadenopathy, thyromegaly Respiratory exam: PRESENT: rales, rhonchi. ABSENT: wheezes Cardiovascular exam: PRESENT: RRR, tachycardia. ABSENT: diastolic murmur, rubs, systolic murmur Pulses: PRESENT: normal dorsalis pedis pul GI/Abdominal exam: PRESENT: normal bowel sounds, soft, other. ABSENT: distended, guarding, mass, organolmegaly, rebound, tenderness Rectal exam: PRESENT: other - Rectum packed with Kerlix Extremities exam: PRESENT: full ROM, other - Atrophy of the foot pads. ABSENT: calf tenderness, clubbing Neurological exam: PRESENT: alert, awake, CN II-XII grossly intact, motor sensory deficit - Right assistant administrator strength 2/5. Left hand 0/5. Lateral lower ext remities: /. Pain sensation intact x4 extremities.. ABSENT: reflexes normal - No Babinski. DTRs 1+ at bilateral biceps and patellar tendons. Psychiatric exam: PRESENT: flat affect. ABSENT: agitated, anxious Skin exam: PRESENT: dry, warm, other - Stage IV sacral decubitus. Bilateral lower extremity unstageable deep tissue injury.. ABSENT: cyanosis, rash Tubes/Lines: PRESENT: Dialysis catheter, Peg Tube Laboratory/Radiographs Laboratory Results: 04/17/20 04:33 04/17/20 04:33 02/08/20 02/08/20 02/21/20 09:49 13:11 04:50 Troponin I 0.160 0.155 NT-Pro-B Natriuret Pep 5540 H 04495 H 02/26/20 03/09/20 03/20/20 05:35 04:00 06:10 Troponin I NT-Pro-B Natriuret Pep 31867 H 20049 H 46294 H Impressions: Hip/Pelvis X-Ray 02/08/20 00:00 IMPRESSION: No acute fracture. Severe degenerative changes of the left hip. Knee X-Ray 02/08/20 00:00 IMPRESSION: NEGATIVE STUDY OF THE RIGHT KNEE. NO RADIOGRAPHIC EVIDENCE OF ACUTE INJURY. Renal Ultrasound 02/21/20 00:00 IMPRESSION: Increased echogenicity of the renal parenchyma suggestive of underlying chronic medical renal disease. There is no hydronephrosis. There is a Ryan catheter within the urinary bladder. Head CT 03/08/20 08:56 IMPRESSION: MILD CHRONIC CHANGES OF ATROPHY AND MICROVASCULAR ISCHEMIA. NO ACUTE PROCESS. EVIDENCE OF ACUTE STROKE: NO. Chest CT 03/08/20 10:12 IMPRESSION: Extensive bilateral infiltrates. No pneumothorax. KUB X-Ray 04/01/20 00:00 IMPRESSION: NG tube as described. Guidance Fluoroscopy 04/08/20 00:00 IMPRESSION: IMAGE(S) OBTAINED DURING PROCEDURE. Chest X-Ray 04/14/20 05:00 IMPRESSION: IMPROVED AERATION WITH DECREASE IN THE BASILAR AIRSPACE DISEASE. All labs, radiographs, diagnostic studies and EKGs were personally reviewed: Yes In addition, reports of radiographic and diagnostic studies were read: Yes Assessment and Plan - Diagnosis (1) Decubitus ulcer of sacral region, unstageable Is this a current diagnosis for this admission?: Yes Plan: * Present on admission. * Additionally, he has unstageable pressure ulcers on his lower extremities. * General surgery help appreciated. Case discussed with Dr. Talley. * In light of the ongoing bleeding complications, hold anticoagulation. * Wound care service help appreciated. * Status post diverting colostomy. * I believe this patient would benefit from a [facility] bed; however, it appears that we are unable to obtain one for use at this institution. (2) Polyneuropathy associated with critical illness Is this a current diagnosis for this admission?: Yes Plan: * Still weak. Needs extensive rehab. (3) Post ICU syndrome Is this a current diagnosis for this admission?: Yes Plan: * The patient has been started on Celexa. * Will increase to 40 mg NG daily. * Ideally, this patient would need multimodal therapy, including PT/OT, speech therapy, psychiatric referral/evaluation. However, his limited communication presents a significant obstacle. I have worked with him daily while on trach collar in hopes that he will be able to get to hear his voice and that might stimulate some self-motivation to engage in rehabilitation therapies. (4) Atrial fibrillation Qualifiers: Atrial fibrillation type: persistent (not longstanding) Qualified Code(s): I48.19 - Other persistent atrial fibrillation; I48.1 - Persistent atrial fibrillation Is this a current diagnosis for this admission?: Yes Plan: * Digoxin 0.25 mg IV single dose on Monday. Repeat digoxin level on Monday morning. I anticipate this patient will likely be able to achieve rate control with digoxin 0.25 mg weekly. * Eliquis on hold for GI bleeding and in anticipation of debridement. (5) CKD (chronic kidney disease) stage 5, GFR less than 15 ml/min Is this a current diagnosis for this admission?: Yes (6) Nonischemic cardiomyopathy Is this a current diagnosis for this admission?: Yes (7) Vitamin D deficiency Is this a current diagnosis for this admission?: Yes (8) Hyponatremia Is this a current diagnosis for this admission?: Yes (9) Occult blood in stools Is this a current diagnosis for this admission?: Yes (10) Normocytic anemia Is this a current diagnosis for this admission?: Yes (11) Abnormal LFTs Is this a current diagnosis for this admission?: Yes (12) Gram negative sepsis Is this a current diagnosis for this admission?: Yes (13) Acute blood loss anemia Is this a current diagnosis for this admission?: Yes (14) Darío-Manuel respiration Is this a current diagnosis for this admission?: Yes (15) Acute respiratory failure due to COVID-19 Is this a current diagnosis for this admission?: Yes Critical Time Critical Time (minutes): 60 Level of Care: ICU -: 1. The care of a critical patient is a dynamic process. This note is a termite control representative synopsis but static in nature. The timeframe for treatments given in order is not necessarily the actual time these treatments may have been done. 2. This patient requires critical care secondary to ongoing requirements for therapy not offered or safe outside the critical care environment. Transfer to a lower level of care will result in altered life or limb morbidity and mortality. 3. Multidisciplinary rounds completed. 4. ABCDE bundle addressed.
[2020-04-20] MEDS: PANTOPRAZOLE SODIUM 40 MG VIAL IV SCH ×2 (00:53→10:24)
[2020-04-20] MEDS: NYSTATIN TOPICAL POWDER 15 GM TP SCH ×2 (00:54→10:24)
[2020-04-20 04:43] LABS: HEMATOCRIT 24.1 % (37.9-51.0); HEMOGLOBIN 8.3 g/dL (13.5-17.0); MEAN CORPUSCULAR HEMOGLOBIN 29.7 pg (27.0-33.4); MEAN CORPUSCULAR HGB CONC 34.3 g/dL (32.0-36.0); MEAN CORPUSCULAR VOLUME 87 fl (80-97); PLATELET COUNT 275 10^3/uL (150-450); RED BLOOD COUNT 2.78 10^6/uL (4.35-5.55); RED CELL DISTRIBUTION WIDTH 16.2 % (11.5-14.0); WHITE BLOOD COUNT 13.8 10^3/uL (4.0-10.5)
[2020-04-20] MEDS: METOPROLOL TARTRATE 25 MG TABLET NG SCH ×2 (04:56→10:23)
[2020-04-20] MEDS ORDERED: HEPARIN SOD (PORCINE) 1,000 UNIT/ML 10 ML VIAL IV PRN (05:00)
[2020-04-20] MEDS ORDERED: EPOETIN ALFA-EPBX 2,000 UNIT, EPOETIN ALFA-EPBX 3,000 UNIT, EPOETIN ALFA-EPBX 20,000 UN... IV PRN ×4 (05:00)
[2020-04-20 05:10] LABS: ALBUMIN 2.2 g/dL (3.5-5.0); ALKALINE PHOSPHATASE 135 U/L (38-126); ANION GAP 10 (5-19); ASPARTATE AMINO TRANSFERASE 33 U/L (17-59); BILIRUBIN,DIRECT 0.5 mg/dL (0.0-0.4); BILIRUBIN,TOTAL 0.7 mg/dL (0.2-1.3); BLOOD UREA NITROGEN 66 mg/dL (7-20); CALCIUM 9.3 mg/dL (8.4-10.2); CARBON DIOXIDE 25 mmol/L (22-30); CHLORIDE 99 mmol/L (98-107); GLUCOSE 117 mg/dL (75-110); PHOSPHORUS 4.5 mg/dL (2.5-4.5); POTASSIUM 3.1 mmol/L (3.6-5.0); TOTAL PROTEIN 4.9 g/dL (6.3-8.2)
[2020-04-20 08:43] LABS: ABSOLUTE LYMPHOCYTES# (MANUAL) 0.8 10^3/uL (0.5-4.7); ABSOLUTE MONOCYTES # (MANUAL) 0.4 10^3/uL (0.1-1.4); BAND NEUTROPHILS % (MANUAL) 1 % (3-5); BASOPHILS % (MANUAL) 0 % (0-2); EOSINOPHILS % (MANUAL) 6 % (0-6); LYMPHOCYTES % (MANUAL) 6 % (13-45); MONOCYTES % (MANUAL) 3 % (3-13); SEGMENTED NEUTROPHILS % (MAN) 84 % (42-78); TOTAL CELLS COUNTED 100
[2020-04-20 08:44] LABS: ANISOCYTOSIS 1+; PLATELET COMMENT ADEQUATE; POLYCHROMASIA 1+
[2020-04-20] MEDS ORDERED: CITALOPRAM HYDROBROMIDE 20 MG TABLET NG SCH (10:00)
[2020-04-20] MEDS: CHOLECALCIFEROL (D3) 1,000 UNIT (25 MCG) TABLET NG SCH (10:23)
[2020-04-20] MEDS: AMINO AC/PROTEIN HYDR/WHEY PRO 11 GM/45 ML PKT NG SCH (10:24)
[2020-04-20] MEDS: COLLAGENASE CLOSTRIDIUM HIST. OINT 30 GM TOP SCH (10:25)
--- NOTE | 2020-04-20 10:34 | PDOC PROGRESS REPORT ---
Subjective Progress Note for:: 04/20/20 Subjective:: I am seeing the patient while receiving hemodialysis this morning. Clinically unchanged. He still on a trach collar and very comfortable. He responds by nodding. Last episode of rectal bleed was last week on Monday when he required 2 units packed RBC blood transfusion. Currently no evidence of any active bleeding. Is tolerating dialysis fairly well without any problems this morning. I just got informed by the nurse will I am in the room that there may be a bed at [facility] today so hopefully he can be transferred. Reason For Visit: WEAKNESS,ELEVATED TROPONIN,CHF Physical Exam Vital Signs: Temp Pulse Resp BP Pulse Ox 99.8 F 112 H 22 H 131/62 H 99 04/20/20 08:00 04/20/20 05:37 04/20/20 08:00 04/20/20 07:52 04/20/20 08:00 Pulse Oximeter Nocturnal Start: 02/08/20 13:55 Freq: RTQ4 Status: Complete Protocol: Document 02/09/20 04:00 LRO (Rec: 02/09/20 05:38 LRO [email or web address]) Nocturnal Pulse Oximetry Equipment Usage Equipment in Use Oxygen Delivery Method (includes room Room Air air) O2 Sat by Pulse Oximetry (92-100) 95 Continuous SpO2 Machine # 2 Pulse Oximeter Nocturnal Start: 02/10/20 11:39 Freq: RTQ4 Status: Complete Protocol: Document 02/11/20 04:06 PMU (Rec: 02/11/20 05:06 PMU [email or web address]) Nocturnal Pulse Oximetry Equipment Usage Equipment in Use Oxygen Delivery Method (includes room Room Air air) O2 Sat by Pulse Oximetry (92-100) 93 Continuous SpO2 Machine # N2 Intake & Output 04/19/20 04/20/20 04/21/20 06:59 06:59 06:59 Intake Total 1225 1375 Output Total 100 10 0 Balance 1125 1365 0 Weight 99.6 kg 100.2 kg Vitals during dialysis: Blood pressure 120/76, heart rate 124, oxygen saturation 97% on trach collar. His blood flow rate on dialysis is 350 mL/min and dialysate flow rate of 800 mL/min. Exam: General appearance: PRESENT: no acute distress, cooperative, on trach collar, well-developed, well-nourished Head exam: PRESENT: atraumatic, normocephalic Eye exam: PRESENT: conjunctiva pale, PERRLA. ABSENT: scleral icterus Neck exam: ABSENT: JVD Respiratory exam: PRESENT: Diminished breath sounds. ABSENT: crackles, rales, rhonchi, unlabored, wheezes Cardiovascular exam: PRESENT: Regular rate rhythm -+S1, +S2. ABSENT: diastolic murmur, systolic murmur GI/Abdominal exam: PRESENT: normal bowel sounds, soft. ABSENT: guarding, mass, tenderness Extremities exam: Trace bilateral upper edema, grade 1 bilateral lower extremity edema Neurological exam: PRESENT: alert, awake, responds by nodding. Skin exam: PRESENT: dry, warm, Cardiovascular exam: PRESENT: +S1, +S2 GI/Abdominal exam: PRESENT: normal bowel sounds, soft. ABSENT: organomegaly, tenderness Results Laboratory Results: 04/20/20 04:32 04/20/20 04:32 04/20/20 04/20/20 04/20/20 04:32 04:32 04:32 WBC 13.8 H RBC 2.78 L Hgb 8.3 L Hct 24.1 L MCV 87 MCH 29.7 MCHC 34.3 RDW 16.2 H Plt Count 275 Seg Neutrophils % Not Reportable Sodium 134.1 L Potassium 3.1 L Chloride 99 Carbon Dioxide 25 Anion Gap 10 BUN 66 H Creatinine 2.02 H Est GFR ( Amer) 39 L Glucose 117 H Calcium 9.3 Ionized Calcium Tessa 1.25 Phosphorus 4.5 Magnesium 1.9 Total Bilirubin 0.7 AST 33 Alkaline Phosphatase 135 H Total Protein 4.9 L Albumin 2.2 L 04/20/20 04:32 WBC Cancelled RBC Cancelled Hgb Cancelled Hct Cancelled MCV Cancelled MCH Cancelled MCHC Cancelled RDW Cancelled Plt Count Cancelled Seg Neutrophils % Cancelled Sodium Potassium Chloride Carbon Dioxide Anion Gap BUN Creatinine Est GFR ( Amer) Glucose Calcium Ionized Calcium Tessa Phosphorus Magnesium Total Bilirubin AST Alkaline Phosphatase Total Protein Albumin 02/08/20 02/08/20 02/21/20 09:49 13:11 04:50 Troponin I 0.160 0.155 NT-Pro-B Natriuret Pep 5540 H 13389 H 02/26/20 03/09/20 03/20/20 05:35 04:00 06:10 Troponin I NT-Pro-B Natriuret Pep 25222 H 37421 H 42580 H Impressions: Hip/Pelvis X-Ray 02/08/20 00:00 IMPRESSION: No acute fracture. Severe degenerative changes of the left hip. Knee X-Ray 02/08/20 00:00 IMPRESSION: NEGATIVE STUDY OF THE RIGHT KNEE. NO RADIOGRAPHIC EVIDENCE OF ACUTE INJURY. Renal Ultrasound 02/21/20 00:00 IMPRESSION: Increased echogenicity of the renal parenchyma suggestive of underlying chronic medical renal disease. There is no hydronephrosis. There is a Ryan catheter within the urinary bladder. Head CT 03/08/20 08:56 IMPRESSION: MILD CHRONIC CHANGES OF ATROPHY AND MICROVASCULAR ISCHEMIA. NO A CUTE PROCESS. EVIDENCE OF ACUTE STROKE: NO. Chest CT 03/08/20 10:12 IMPRESSION: Extensive bilateral infiltrates. No pneumothorax. KUB X-Ray 04/01/20 00:00 IMPRESSION: NG tube as described. Guidance Fluoroscopy 04/08/20 00:00 IMPRESSION: IMAGE(S) OBTAINED DURING PROCEDURE. Chest X-Ray 04/14/20 05:00 IMPRESSION: IMPROVED AERATION WITH DECREASE IN THE BASILAR AIRSPACE DISEASE. Assessment & Plan - Diagnosis (1) Acute kidney injury superimposed on chronic kidney disease Is this a current diagnosis for this admission?: Yes Plan: Patient is still anuric, requiring renal replacement therapy. Patient has ATN in the background of cardiomyopathy with ejection fraction of 25 to 30% and grade 3 diastolic dysfunction. Continue renal replacement therapy support. P atient will need to be re-evaluated for the next couple months to see if there will be any renal recovery. We will do dialysis today for 3.0 hours, using the patient's dialysis catheter, with 3 potassium bath, blood flow rate of 350 mL per minute, dialysate flow rate of 800 mL per minute, ultrafiltration 2.0 L as tolerated, no heparin and Retacrit with 25,000 units during dialysis intravenously. Patient is currently being monitored throughout dialysis treatment. (2) Decubitus ulcer of sacral region, unstageable Is this a current diagnosis for this admission?: Yes Plan: Status post surgical debridement couple of times. (3) Hypokalemia Is this a current diagnosis for this admission?: Yes Plan: We are using high potassium bath on dialysis. Might still be replaced as necessary. (4) LGI bleed Is this a current diagnosis for this admission?: Yes Plan: Status post rectal bleeding and requiring rectal packing and blood transfusions. Currently no evidence of active bleed. (5) Anemia Qualifiers: Anemia type: iron deficiency Is this a current diagnosis for this admission?: Yes Plan: Acute blood loss after sacral decubitus debridement last 04/06/2020. Acute rectal bleeding 04/11/2020. Currently on Retacrit during dialysis. (6) Critical illness polyneuropathy Is this a current diagnosis for this admission?: Yes (7) Hypocalcemia Is this a current diagnosis for this admission?: Yes Plan: Resolved. (8) Atrial fibrillation Qualifiers: Atrial fibrillation type: persistent (not longstanding) Qualified Code(s): I48.19 - Other persistent atrial fibrillation; I48.1 - Persistent atrial fibri llation Is this a current diagnosis for this admission?: Yes Plan: On metoprolol. (9) Hypoalbuminemia Is this a current diagnosis for this admission?: Yes Plan: Chronic and persistent. Now receiving tube feedings via PEG tube. (10) Hyponatremia Is this a current diagnosis for this admission?: Yes Plan: Mild and borderline. (11) MRSA pneumonia Qualifiers: Laterality: bilateral Lung location: unspecified part of lung Qualified Code(s): J15.212 - Pneumonia due to Methicillin resistant Staphylococcus aureus Is this a current diagnosis for this admission?: Yes Plan: Completed treatment with cefepime and doxycycline. (12) Gram negative sepsis Is this a current diagnosis for this admission?: Yes Plan: Resolved. (13) Nonischemic cardiomyopathy Is this a current diagnosis for this admission?: Yes (14) Elevated liver enzymes Is this a current diagnosis for this admission?: Yes (15) COVID-19 virus infection Is this a current diagnosis for this admission?: Yes (16) Acute respiratory failure due to COVID-19 Is this a current diagnosis for this admission?: Yes - Time Time with patient: 15-25 minutes
--- NOTE | 2020-04-20 11:14 | PDOC TRANSFER SUMMARY ---
General Admission Date/PCP: 02/08/20 13:52 [facility] Admission Date: 02/08/20 Transfer Date: 04/20/20 Accepting Facility: Other (Comments) - LTAC Resuscitation Status: Full Code - Transfer Diagnosis (1) Polyneuropathy associated with critical illness Is this a current diagnosis for this admission?: Yes Diagnosis Summary: Still quite weak needing extensive rehab. (2) Osteomyelitis Is this a current diagnosis for this admission?: Yes Diagnosis Summary: He has a large sacral decubitus down to bone. Dr. Talley to debride today before transfer (3) CKD (chronic kidney disease) stage 5, GFR less than 15 ml/min Is this a current diagnosis for this admission?: Yes Diagnosis Summary: He is on HD M/W/Fr. He received dialysis today that was uneventful. (4) Acute on chronic diastolic CHF (congestive heart failure) Is this a current diagnosis for this admission?: Yes Diagnosis Summary: In active for quite a long time. (5) Coronary artery disease Is this a current diagnosis for this admission?: Yes Diagnosis Summary: Inactive (6) Obesity (BMI 30-39.9) Is this a current diagnosis for this admission?: Yes Diagnosis Summary: His weight is less but still about 30 for BMI. (7) Anemia Is this a current diagnosis for this admission?: Yes Diagnosis Summary: Last transfused on the . Hgb 8.3. Rectal stump still packed for bleeding. Likely both diverticular and trauma from tube. No colonoscopy. Sigmoidoscopy showed no bleeding. (8) HTN (hypertension) Is this a current diagnosis for this admission?: Yes Diagnosis Summary: Controlled. (9) LGI bleed Is this a current diagnosis for this admission?: Yes Diagnosis Summary: No bleeding for 2 days. - Transfer Medications Home Medications: Aspirin [Aspirin 81 mg Chewable Tablet] 81 mg PO DAILY 01/29/20 Transfer Medications: Current Medications Acetaminophen (Tylenol Soln 325 Mg/10.15 Ml Udcup) 650 mg NG Q4HP PRN PRN Reason: FEVER >101 Stop: 04/23/20 18:20 Last Admin: 04/18/20 01:24 Dose: 650 mg Documented by: Amino Acid Protein (Prosource Tf 11 Gm Protein/45 Ml Pkt) 45 ml NG TID JACQUE Stop: 05/12/20 13:59 Last Admin: 04/20/20 10:24 Dose: 45 ml Documented by: Cholecalciferol (Vitamin D3 1000 Unit Tablet) 2,000 unit NG TID JACQUE Stop: 04/29/20 18:59 Last Admin: 04/20/20 10:23 Dose: 2,000 unit Documented by: Citalopram Hydrobromide (Celexa 20 Mg Tablet) 40 mg NG DAILY [facility] Stop: 05/20/20 09:59 Last Admin: 04/20/20 10:23 Dose: 40 mg Documented by: Collagenase (Santyl Ointment 30 Gm) 1 applic TOP DAILY [facility] Stop: 04/25/20 20:59 Last Admin: 04/20/20 10:25 Dose: 1 applic Documented by: Dextrose (Dextrose Inj 50% Syringe (25 Gm/50 Ml)) 12.5 gm IV PRN PRN; Protocol PRN Reason: FOR BG 50-69 IN ALERT PATIENT Stop: 05/15/20 11:59 Dextrose (Dextrose Inj 50% Syringe (25 Gm/50 Ml)) 25 gm IV PRN PRN; Protocol PRN Reason: PER PROTOCOL Stop: 05/15/20 11:59 Glucagon (Glucagen Inj 1 Mg Vial) 1 mg IM PRN PRN; Protocol PRN Reason: EVALUATE FOR BG < 70 Stop: 05/15/20 11:59 Glucose (Glutose 40% Gel 15 Gm Tube) 15 gm PO PRN PRN; Protocol PRN Reason: FOR BG 50-69 IN ALERT PATIENT Stop: 05/15/20 11:59 Glucose (Glutose 40% Gel 15 Gm Tube) 30 gm PO PRN PRN; Protocol PRN Reason: FOR BG < 50 IN ALERT PATIENT Stop: 05/15/20 11:59 Heparin Sodium (Porcine) (Heparin Inj 1,000 Unit/Ml 10 Ml Vial) 4,300 unit IV .SPLIT B/N CATHETERS PRN PRN Reason: THIS MED IS NOT "PRN" Stop: 04/20/20 23:59 Last Admin: 04/20/20 08:41 Dose: 4,300 units Documented by: Hydromorphone HCl (Dilaudid Inj/Pf 2 Mg/Ml Ampule) 1 mg IV Q4HP PRN PRN Reason: FOR PAIN Stop: 04/21/20 11:02 Last Admin: 04/18/20 13:18 Dose: 1 mg Documented by: Epoetin Unruly-epbx 2,000 unit/Epoetin Unruly-epbx 3,000 unit/Epoetin Unruly-epbx 20,000 unit/Syringe 4 mls @ 0 mls/hr IV .DIALYSIS PRN PRN Reason: THIS MED IS NOT "PRN" Stop: 04/20/20 23:59 Last Admin: 04/20/20 08:41 Dose: 25,000 mls/hr Documented by: Levalbuterol HCl (Xopenex Neb 1.25 Mg/3 Ml Ampul) 1.25 mg NEB RTQ6HP PRN PRN Reason: WHEEZING Stop: 05/12/20 18:02 Metoprolol Tartrate (Lopressor Inj/Pf 5 Mg/5 Ml Sdv) 5 mg IV Q6HP PRN PRN Reason: GIVE FOR SBP > [] Stop: 05/14/20 18:25 Last Admin: 04/19/20 13:31 Dose: 5 mg Documented by: Metoprolol Tartrate (Lopressor 25 Mg Tablet) 25 mg NG Q12 JACQUE Stop: 05/16/20 10:59 Last Admin: 04/20/20 10:23 Dose: 25 mg Documented by: Pantoprazole Sodium (Protonix Iv Inj 40 Mg Vial) 40 mg IV Q12 JACQUE Stop: 04/22/20 09:59 Last Admin: 04/20/20 10:24 Dose: 40 mg Documented by: - Allergies Allergies/Adverse Reactions: No Known Allergies Allergy (Verified 02/08/20 10:21) - Diet/Activity Discharge Diet: Other (Comments) - Renal (HD patient) Hospital Course Hospital Course: His last transfer summary was on 04/10 but unfortunately he did not transfer. Since then he is more awake and animated. Still profoundly weak. He has had 2 episodes of LGI bleeding. Given his age likely diverticular or also some trauma from a rectal tube. Sigmoidoscopy showed no bleeding sites. Rectal stump packed with gauze and gelfoam at discharge. Physical Exam Vital Signs: Temp Pulse Resp BP Pulse Ox 99.8 F 110 H 27 H 100/49 L 98 04/20/20 08:00 04/20/20 09:19 04/20/20 10:22 04/20/20 10:22 04/20/20 10:22 Pulse Oximeter Nocturnal Start: 02/08/20 13:55 Freq: RTQ4 Status: Complete Protocol: Document 02/09/20 04:00 LRO (Rec: 02/09/20 05:38 LRO [id number]) Nocturnal Pulse Oximetry Equipment Usage Equipment in Use Oxygen Delivery Method (includes room Room Air air) O2 Sat by Pulse Oximetry (92-100) 95 Continuous SpO2 Machine # 2 Pulse Oximeter Nocturnal Start: 02/10/20 11:39 Freq: RTQ4 Status: Complete Protocol: Document 02/11/20 04:06 PMU (Rec: 02/11/20 05:06 PMU [id number]) Nocturnal Pulse Oximetry Equipment Usage Equipment in Use Oxygen Delivery Method (includes room Room Air air) O2 Sat by Pulse Oximetry (92-100) 93 Continuous SpO2 Machine # N2 Intake & Output 04/19/20 04/20/20 04/21/20 06:59 06:59 06:59 Intake Total 1225 1375 1000 Output Total 188 37 9117 Balance 1125 1365 -2000 Weight 99.6 kg 100.2 kg General appearance: PRESENT: no acute distress, cooperative, obese Head exam: PRESENT: atraumatic, normocephalic Eye exam: PRESENT: conjunctiva pink, EOMI, PERRLA. ABSENT: scleral icterus Ear exam: PRESENT: normal external ear exam Mouth exam: PRESENT: moist, tongue midline Neck exam: PRESENT: tracheostomy Respiratory exam: PRESENT: clear to auscultation kevyn. ABSENT: rales, rhonchi, wheezes Cardiovascular exam: PRESENT: RRR, other - PEG. ABSENT: diastolic murmur, rubs, systolic murmur GI/Abdominal exam: PRESENT: normal bowel sounds, soft. ABSENT: distended, guarding, mass, organolmegaly, rebound, tenderness Rectal exam: PRESENT: deferred Extremities exam: PRESENT: full ROM. ABSENT: calf tenderness, clubbing, pedal edema Musculoskeletal exam: PRESENT: normal inspection Neurological exam: PRESENT: alert, awake, CN II-XII grossly intact Psychiatric exam: PRESENT: appropriate affect, normal mood. ABSENT: homicidal ideation, suicidal ideation Skin exam: PRESENT: other - Large sacral wound Results Laboratory Results: 04/20/20 04:32 04/20/20 04:32 04/20/20 04/20/20 04/20/20 04:32 04:32 04:32 WBC 13.8 H RBC 2.78 L Hgb 8.3 L Hct 24.1 L MCV 87 MCH 29.7 MCHC 34.3 RDW 16.2 H Plt Count 275 Seg Neutrophils % Not Reportable Sodium 134.1 L Potassium 3.1 L Chloride 99 Carbon Dioxide 25 Anion Gap 10 BUN 66 H Creatinine 2.02 H Est GFR ( Amer) 39 L Glucose 117 H Calcium 9.3 Ionized Calcium Tessa 1.25 Phosphorus 4.5 Magnesium 1.9 Total Bilirubin 0.7 AST 33 Alkaline Phosphatase 135 H Total Protein 4.9 L Albumin 2.2 L 04/20/20 04:32 WBC Cancelled RBC Cancelled Hgb Cancelled Hct Cancelled MCV Cancelled MCH Cancelled MCHC Cancelled RDW Cancelled Plt Count Cancelled Seg Neutrophils % Cancelled Sodium Potassium Chloride Carbon Dioxide Anion Gap BUN Creatinine Est GFR ( Amer) Glucose Calcium Ionized Calcium Tessa Phosphorus Magnesium Total Bilirubin AST Alkaline Phosphatase Total Protein Albumin 02/08/20 02/08/20 02/21/20 09:49 13:11 04:50 Troponin I 0.160 0.155 NT-Pro-B Natriuret Pep 5540 H 67527 H 02/26/20 03/09/20 03/20/20 05:35 04:00 06:10 Troponin I NT-Pro-B Natriuret Pep 59364 H 58717 H 16425 H Impressions: Hip/Pelvis X-Ray 02/08/20 00:00 IMPRESSION: No acute fracture. Severe degenerative changes of the left hip. Knee X-Ray 02/08/20 00:00 IMPRESSION: NEGATIVE STUDY OF THE RIGHT KNEE. NO RADIOGRAPHIC EVIDENCE OF ACUTE INJURY. Renal Ultrasound 02/21/20 00:00 IMPRESSION: Increased echogenicity of the renal parenchyma suggestive of un derlying chronic medical renal disease. There is no hydronephrosis. There is a Ryan catheter within the urinary bladder. Head CT 03/08/20 08:56 IMPRESSION: MILD CHRONIC CHANGES OF ATROPHY AND MICROVASCULAR ISCHEMIA. NO ACUTE PROCESS. EVIDENCE OF ACUTE STROKE: NO. Chest CT 03/08/20 10:12 IMPRESSION: Extensive bilateral infiltrates. No pneumothorax. KUB X-Ray 04/01/20 00:00 IMPRESSION: NG tube as described. Guidance Fluoroscopy 04/08/20 00:00 IMPRESSION: IMAGE(S) OBTAINED DURING PROCEDURE. Chest X-Ray 04/14/20 05:00 IMPRESSION: IMPROVED AERATION WITH DECREASE IN THE BASILAR AIRSPACE DISEASE. Plan Discharge Plan: Transfer to LTAC today. Time Spent: Greater than 30 Minutes
[2020-04-20] MEDS ORDERED: EPINEPHRINE INJ 1 MG/10 ML DISP.SYRIN ONE (12:24)
[2020-04-20] MEDS ORDERED: EPINEPHRINE INJ 1 MG/10 ML DISP.SYRIN TOP ONE (12:48)
[2020-04-20 12:54] VITALS: BP 32/15
--- NOTE | 2020-04-20 12:57 | Operative Report ---
Nonrecallable Operative Report DATE OF SURGERY: 04/20/20 PREOPERATIVE DIAGNOSIS: worsening sacral decubitus ulcer POSTOPERATIVE DIAGNOSIS: same as above OPERATION: sharp excisional debridement of skin, fat, fuscle, and fascia of the sacral decubitus ([id number] cm) SURGEON: SWATI GUILLEN TISSUE REMOVED OR ALTERED: skin, fat, muscle, fasia COMPLICATIONS: none apparent ESTIMATED BLOOD LOSS: minimal PROCEDURE: Procedure: After consent was verified, the sacral decubitus was examined. There was necrotic tussue present. Using a 10 blade scalpel, the Necrotic tissue was debrided. An additional 1cm depth was removed/debrided from the wound. Muscle, fascia, skin, and fat was debrided away sharply. Epinephrine was soaked into 4x4's and placed over top for hemostasis. The size of the wound measured 32x24 cm. The debridement was then completed. All sponge, instrument, and needle counts were correct. Cond: fair.
== END 2020-04-20 13:45 | DRG 3 ==
LOC: ER 08:23 → EH 13:52 → 3S 16:51 → 3N 02-11 12:16 → ICU 02-12 08:57
PROVIDERS: ADMIT Anesthesiology; ATTEND Anesthesiology
PROC: 0JH63WZ Insertion of Totally Implantable Vascular Access Device into Chest Subcutaneous Tissue and Fascia, Percutaneous Approach (ICD-10-PCS; 2020-02-07)
PROC: 02HV33Z Insertion of Infusion Device into Superior Vena Cava, Percutaneous Approach (ICD-10-PCS; 2020-02-07)
PROC: B548ZZA Ultrasonography of Superior Vena Cava, Guidance (ICD-10-PCS; 2020-02-07)
PROC: 0W3P8ZZ Control Bleeding in Gastrointestinal Tract, Via Natural or Artificial Opening Endoscopic (ICD-10-PCS; 2020-02-10)
PROC: 5A1955Z Respiratory Ventilation, Greater than 96 Consecutive Hours (ICD-10-PCS; 2020-02-12)
PROC: 0BH17EZ Insertion of Endotracheal Airway into Trachea, Via Natural or Artificial Opening (ICD-10-PCS; 2020-02-12)
PROC: 02H633Z Insertion of Infusion Device into Right Atrium, Percutaneous Approach (ICD-10-PCS; 2020-02-12)
PROC: 3E0336Z Introduction of Nutritional Substance into Peripheral Vein, Percutaneous Approach (ICD-10-PCS; 2020-02-16)
PROC: 06JY3ZZ Inspection of Lower Vein, Percutaneous Approach (ICD-10-PCS; 2020-02-17)
PROC: 06HN33Z Insertion of Infusion Device into Left Femoral Vein, Percutaneous Approach (ICD-10-PCS; 2020-02-17)
PROC: 5A1D70Z Performance of Urinary Filtration, Intermittent, Less than 6 Hours Per Day (ICD-10-PCS; 2020-02-18)
PROC: 30233N1 Transfusion of Nonautologous Red Blood Cells into Peripheral Vein, Percutaneous Approach (ICD-10-PCS; 2020-02-23)
PROC: 0DB78ZX Excision of Stomach, Pylorus, Via Natural or Artificial Opening Endoscopic, Diagnostic (ICD-10-PCS; 2020-02-25)
PROC: 0B110F4 Bypass Trachea to Cutaneous with Tracheostomy Device, Open Approach (ICD-10-PCS; principal; 2020-03-10)
PROC: 0KBP0ZZ Excision of Left Hip Muscle, Open Approach (ICD-10-PCS; 2020-03-23)
PROC: 0KBN0ZZ Excision of Right Hip Muscle, Open Approach (ICD-10-PCS; 2020-03-23)
PROC: 0JB70ZZ Excision of Back Subcutaneous Tissue and Fascia, Open Approach (ICD-10-PCS; 2020-03-25)
PROC: 0KBP0ZZ Excision of Left Hip Muscle, Open Approach (ICD-10-PCS; 2020-03-31)
PROC: 0KBN0ZZ Excision of Right Hip Muscle, Open Approach (ICD-10-PCS; 2020-03-31)
PROC: 06HN33Z Insertion of Infusion Device into Left Femoral Vein, Percutaneous Approach (ICD-10-PCS; 2020-04-03)
PROC: B54CZZA Ultrasonography of Left Lower Extremity Veins, Guidance (ICD-10-PCS; 2020-04-03)
PROC: 0KBP0ZZ Excision of Left Hip Muscle, Open Approach (ICD-10-PCS; 2020-04-05)
PROC: 0KBN0ZZ Excision of Right Hip Muscle, Open Approach (ICD-10-PCS; 2020-04-05)
PROC: 0D1N0Z4 Bypass Sigmoid Colon to Cutaneous, Open Approach (ICD-10-PCS; 2020-04-08)
PROC: 0DH63UZ Insertion of Feeding Device into Stomach, Percutaneous Approach (ICD-10-PCS; 2020-04-08)
PROC: 0KBP0ZZ Excision of Left Hip Muscle, Open Approach (ICD-10-PCS; 2020-04-20)
PROC: 0KBN0ZZ Excision of Right Hip Muscle, Open Approach (ICD-10-PCS; 2020-04-20)
DX: U07.1 COVID-19 (principal); L89.154 Pressure ulcer of sacral region, stage 4; J96.01 Acute respiratory failure with hypoxia; I50.43 Acute on chronic combined systolic (congestive) and diastolic (congestive) heart failure; J15.212 Pneumonia due to Methicillin resistant Staphylococcus aureus; J15.6 Pneumonia due to other Gram-negative bacteria; A41.51 Sepsis due to Escherichia coli [E. coli]; J12.89 Other viral pneumonia; N17.0 Acute kidney failure with tubular necrosis; I13.0 Hypertensive heart and chronic kidney disease with heart failure and stage 1 through stage 4 chronic kidney disease, or unspecified chronic kidney disease; E87.2 Acidosis; I48.19 Other persistent atrial fibrillation; N18.5 Chronic kidney disease, stage 5; E87.1 Hypo-osmolality and hyponatremia; I42.8 Other cardiomyopathies; K92.1 Melena; M46.28 Osteomyelitis of vertebra, sacral and sacrococcygeal region; D62 Acute posthemorrhagic anemia; Z99.11 Dependence on respirator [ventilator] status; I25.119 Atherosclerotic heart disease of native coronary artery with unspecified angina pectoris; E87.5 Hyperkalemia; G47.33 Obstructive sleep apnea (adult) (pediatric); N18.30 Chronic kidney disease, stage 3 unspecified; I49.3 Ventricular premature depolarization; E66.9 Obesity, unspecified; M54.9 Dorsalgia, unspecified; G89.29 Other chronic pain; R26.2 Difficulty in walking, not elsewhere classified; I95.9 Hypotension, unspecified; E83.51 Hypocalcemia; R73.9 Hyperglycemia, unspecified; D69.59 Other secondary thrombocytopenia; D50.9 Iron deficiency anemia, unspecified; Z99.2 Dependence on renal dialysis; L89.150 Pressure ulcer of sacral region, unstageable; E83.39 Other disorders of phosphorus metabolism; E88.09 Other disorders of plasma-protein metabolism, not elsewhere classified; G62.89 Other specified polyneuropathies; B96.5 Pseudomonas (aeruginosa) (mallei) (pseudomallei) as the cause of diseases classified elsewhere; B96.89 Other specified bacterial agents as the cause of diseases classified elsewhere; L89.620 Pressure ulcer of left heel, unstageable; L89.610 Pressure ulcer of right heel, unstageable; L89.151 Pressure ulcer of sacral region, stage 1; I25.2 Old myocardial infarction; E66.01 Morbid (severe) obesity due to excess calories; Z87.891 Personal history of nicotine dependence; Z83.3 Family history of diabetes mellitus; Z82.49 Family history of ischemic heart disease and other diseases of the circulatory system; Z95.1 Presence of aortocoronary bypass graft; Z79.82 Long term (current) use of aspirin; Z79.899 Other long term (current) drug therapy; Z79.02 Long term (current) use of antithrombotics/antiplatelets; Z91.81 History of falling; Z78.1 Physical restraint status
CPT/HCPCS: 00320; 00840; 31500; 36415; 36430; 36556; 36600; 43239; 70450; 71045; 71250; 74018; 76770; 77001; 80048; 80053; 80061; 80074; 80162; 80202; 81001; 82040; 82272; 82306; 82310; 82330; 82652; 82728; 82803; 82962; 83520; 83605; 83690; 83735; 83880; 83970; 84100; 84134; 84145; 84443; 84478; 84484; 85025; 85027; 85049; 85379; 85384; 85610; 85730; 86022; 86140; 86850; 86900; 86901; 86920; 87040; 87070; 87077; 87086; 87150; 87186; 87205; 87324; 87449; 87635; 88305; 88342; 93005; 93010; 93306; 94002; 94003; 94640; 94660; 94762; 95819; 96374; 99140; 99238; 99239; 99285; 99291; 99292; J0610; C1758; C9113; C9132; C9803; J0171; J0360; J0692; J0696; J1100; J1160; J1170; J1200; J1265; J1450; J1610; J1642; J1644; J1815; J1940; J2020; J2060; J2185; J2250; J2270; J2310; J2370; J2405; J2543; J2597; J2704; J2765; J3010; J3360; J3370; J3475; J3480; J3490; J7030; J7040; J7060; J7120; J7613; J7614; J8540; P9016; P9041; P9047; Q5105; S0028